=== PATIENT | female | born 1960 | race Caucasian/White ===

== ENCOUNTER 2019-08-31 10:57 | Inpatient (IN) | payer BC, OTHER ==
[~2019-08-31] VITALS: Ht 160 cm; Wt 63.1 kg
[~2019-08-31 10:57] MED LIST: CLONAZEPAM2 M1 PO; FLAGYL500 MG PO; LEVOTHYROXINE200 MC1 PO; LIPITOR20 MG; LISINOPRIL10 MG PO; OXYCODONE HCL20 M1 PO; PANTOPRAZOLE SO40 MG PO; POTASSIUM CHLO20 ME1 PO; RESTORIL30 MG PO; ULTRAM50 MG PO; XANAX0.5 MG PO; Z ALTACE PO; Z.0.PLAVIX75 MG PO; Z.0.TOPROL XL50 MG PO; ZOFRAN ODT4 MG PO
--- OUTSIDE RECORDS SUMMARY | 2019-08-31 11:00 | XMS REPORT | Clinical Summary ---
Author Author [facility] Address Unknown Phone Unavailable Care Team Providers Care Alumni Relations Coordinator Name Role Phone PCP Unavailable Allergies Comments Active Allergy Reactions Severity Noted Date Prochlorperazine Rash Low 05/30/2016 Dye Itching, High 05/31/2016 Swelling, Rash Iodine And Iodide 06/03/2016 Containing Products Penicillins Swelling High 05/30/2016 jittery Metoclopramide Hcl 05/30/2016 Ketorolac Hives 05/30/2016 Ondansetron Hcl (Pf) Rash Low 7 Medications End Date Status Medication Sig Dispensed Refills Start Date Active clopidogrel (PLAVIX) 75 Take 75 mg by 0 mg tablet mouth daily. Active cloNIDine HCl (CATAPRES) Take 0.1 mg 0 0.1 MG tablet by mouth as needed. Active amLODIPine (NORVASC) 10 Take 10 mg by 0 MG tablet mouth daily. Active pantoprazole (PROTONIX) Take 40 mg by 0 40 MG tablet mouth daily. Active lisinopril Take 10 mg by 0 (PRINIVIL,ZESTRIL) 10 MG mouth daily. tablet Active atorvastatin (LIPITOR) 80 Take 80 mg by 0 MG tablet mouth daily. Active diazePAM (VALIUM) 5 MG Take 5 mg by 0 tablet mouth every 6 (six) hours as needed for Anxiety. Active HYDROcodone-acetaminophen Take 1 tablet 0 (NORCO 10-325) 10-325 mg by mouth per tablet every 6 (six) hours as needed for Pain. Active temazepam (RESTORIL) 30 Take 30 mg by 0 mg capsule mouth every night as needed for Sleep. Active levothyroxine (SYNTHROID, Take 175 mcg 0 LEVOTHROID) 175 MCG by mouth tablet Every morning on an empty stomach. Active traMADol (ULTRAM) 50 mg Take 2 60 tablet 0 tablet tablets (100 7 mg total) by mouth 3 (three) times daily. Max Daily Amount: 300 mg Active Problems Problem Noted Date Acute chest pain 05/30/2016 Social History Date Tobacco Use Types Packs/Day Years Used Former Smoker Alcohol Use Drinks/Week oz/Week Comments Yes 1-2 Glasses 0.6 - 1.2 two times week of wine Sex Assigned at Date Recorded Not on file Industry Job Start Date Occupation Not on file Not on file Not on file Travel End Travel History Travel Start No recent travel history available. Last Filed Vital Signs Not on file Plan of Treatment Not on file Results Not on fileafter 08/30/2018 Insurance Payer Benefit Subscriber ID Type Phone Address Plan / Group [employer] FED xxxxxxxxx [id number] [place] [address] Advance Directives For more information, please contact: [facility] [address] [place] [address] Date Inactivated Comments Code Status Date Activated 06/05/2016 12:30 AM Full Code 06/04/2016 11:27 AM This code status was determined by: Patient 06/04/2016 11:27 AM Full Code 05/30/2016 9:51 PM This code status was determined by: Patient
--- OUTSIDE RECORDS SUMMARY | 2019-08-31 11:01 | XMS REPORT | Summary of Care ---
Author Author [facility] Organization [facility] Address Unknown Phone Unavailable Encounter ANDREINA Yoder(YOUNG) [id number] Date(s): 11/23/14 - 12/01/14 [facility] [id number] [place] [address]- [phone] Discharge Disposition: Home Attending Physician: Chevy Callaway DO Admitting Physician: Chevy Callaway DO Vital Signs 1 2 3 Most recent to oldest [Reference Range]: 160.02 cm (11/23/14 12:05 PM) Height 1 2 3 Most recent to oldest [Reference Range]: 97.9 DegF (12/01/14 2:57 PM) 98.1 DegF (12/01/14 11:55 AM) 97.5 DegF (12/01/14 7:56 AM) Temperature Oral [96.4-99.1 DegF] 1 2 3 Most recent to oldest [Reference Range]: 114/73 mmHg (12/01/14 2:57 PM) 121/84 mmHg (12/01/14 1:20 PM) 155/101 mmHg *HI* (12/01/14 11:55 AM) Blood Pressure [90-140/60-90 mmHg] 1 2 3 Most recent to oldest [Reference Range]: 15 BRMIN (12/01/14 2:57 PM) 16 BRMIN (12/01/14 11:55 AM) 18 BRMIN (12/01/14 7:56 AM) Respiratory Rate [14-20 BRMIN] 1 2 3 Most recent to oldest [Reference Range]: 70 bpm (12/01/14 2:57 PM) 81 bpm (12/01/14 11:55 AM) 81 bpm (12/01/14 7:56 AM) Peripheral Pulse Rate [60-100 bpm] 1 2 3 Most recent to oldest [Reference Range]: 81.818 kg (11/26/14 4:37 PM) 81.818 kg (11/23/14 12:05 PM) Weight 1 2 3 Most recent to oldest [Reference Range]: 31.95 m2 (11/23/14 12:05 PM) Body Mass Index Problem List Condition Effective Dates Status Health Status Informan t Congestive heart Active failure (CHF)(Confirmed) Hypertension(Confirm Active ed) Myocardial Resolved infarction(Confirmed )1 13 Allergies, Adverse Reactions, Alerts Substance Reaction Severity Status Compazine Active penicillins Active Reglan Active Toradol Active Zofran Active Medications aspirin 325 mg tablet 325 mg, PO, Daily, # 30 tab, 0 Refill(s) Start Date: 12/01/14 Status: Ordered aspirin 325 mg tablet 325 mg, 1 tab, Route: PO, Drug form: TAB, Daily, Dosing Weight 81.818, kg, Start date: 11/25/14 9:00:00, Duration: 30 day, Stop date: 12/24/14 9:00:00 Notes: Take with food. Start Date: 11/25/14 Stop Date: 12/01/14 Status: Discontinued Ativan 1 mg, Route: PO, Drug form: TAB, ONCE, Dosing Weight 81.818, kg, Priority: STAT, Start date: 11/23/14 14:33:00, Stop date: 11/23/14 14:33:00 Start Date: 11/23/14 Stop Date: 11/23/14 Status: Completed atropine 0.5 mg, 5 mL, Route: IVP, Drug form: INJ, PRN, PRN Bradycardia, Start date: 11/04 04/19 18:36:00, Duration: 30 day, Stop date: 12/23/14 18:35:00 Start Date: 11/23/14 Stop Date: 12/01/14 Status: Discontinued Benadryl 25 mg, Route: IVP, ONCE, Dosing Weight 81.818, kg, PRN Allergic reaction, Start date: 11/23/14 17:56:00 Start Date: 11/23/14 Stop Date: 11/23/14 Status: Completed cloNIDine 0.1 mg oral tablet 0.1 mg = 1 tab, PO, Q1H, PRN el, SBP > 160, # 90 tab, 3 Refill(s) Special Instructions: SBP > 160 Start Date: 11/23/14 Stop Date: 12/01/14 Status: Discontinued cloNIDine 0.1 mg oral tablet 0.1 mg = 1 tab, PO, TID, PRN Hypertension, # 90 tab, 0 Refill(s) Start Date: 12/01/14 Stop Date: 12/31/14 Status: Ordered cloNIDine 0.1 mg oral tablet 0.1 mg, 1 tab, Route: PO, Drug form: TAB, BID, Dosing Weight 81.818, kg, PRN Hyp ertension, Start date: 11/23/14 15:33:00, Duration: 30 day, Stop date: 12/23/14 15:32:00 Notes: (Same As: Radha) Start Date: 11/23/14 Stop Date: 12/01/14 Status: Discontinued Dilaudid 1 mg, 1 mL, Route: IVP, Drug form: INJ, ONCE, Dosing Weight 81.818, kg, Priority : STAT, Start date: 11/25/14 17:51:00, Stop date: 11/25/14 17:51:00 Start Date: 11/25/14 Stop Date: 11/25/14 Status: Completed Dilaudid 1 mg, Route: IVP, ONCE, Dosing Weight 81.818, kg, Priority: STAT, Start date: 17:57:00, Stop date: 11/23/14 17:57:00 Start Date: 11/23/14 Stop Date: 11/23/14 Status: Completed Dilaudid 1 mg, 1 mL, Route: IV, Drug form: INJ, Q4H, Dosing Weight 81.818, kg, PRN Pain S core 7-10, Start date: 11/28/14 11:53:00, Duration: 30 day, Stop date: 12/28/14 11:52:00 Start Date: 11/28/14 Stop Date: 12/01/14 Status: Discontinued Dilaudid 0.5 mg, 0.5 mL, Route: IV, Drug form: INJ, Q3H, Dosing Weight 81.818, kg, PRN Pa in Score 7-10, Start date: 11/24/14 17:16:00, Duration: 30 day, Stop date: 12/24 17:15:00 Start Date: 11/24/14 Stop Date: 11/28/14 Status: Discontinued Dilaudid 0.5 mg, 0.5 mL, Route: IV, Drug form: INJ, Q4H, Dosing Weight 81.818, kg, PRN Pa in Score 7-10, Start date: 11/23/14 18:49:00, Duration: 30 day, Stop date: 12/23 18:48:00 Start Date: 11/23/14 Stop Date: 11/24/14 Status: Discontinued droperidol 0.625 mg, Route: IVP, ONCE, Dosing Weight 81.818, kg, PRN Nausea, Start date: 17:42:00, Stop date: 12/23/14 17:41:00 Start Date: 11/23/14 Stop Date: 11/23/14 Status: Deleted erythromycin 250 mg oral tablet 250 mg = 1 tab, PO, Q6H, X 10 day, # 40 tab, 0 Refill(s) Start Date: 12/01/14 Stop Date: 12/11/14 Status: Ordered erythromycin ethylsuccinate 200 mg/5 mL oral suspension 250 mg, 3.13 mL, Route: PO, Drug Form: SUSP, Dosing Weight 81.818, kg, ABXQ6H, S tart date: 11/29/14 17:00:00, Duration: 30 day, Stop date: 12/29/14 11:00:00 Notes: (Same as: E.E.S.-400) Start Date: 11/29/14 Stop Date: 12/01/14 Status: Discontinued famotidine 20 mg oral tablet 20 mg, 1 tab, Route: PO, Drug form: TAB, Q12H, Dosing Weight 81.818, kg, Start d ate: 11/24/14 21:00:00, Duration: 30 day, Stop date: 12/24/14 9:00:00 Notes: (Same as: Pepcid) Start Date: 11/24/14 Stop Date: 12/01/14 Status: Discontinued hydrOXYzine 25 mg, 1 mL, Route: IM, Drug form: INJ, Q6H, Dosing Weight 81.818, kg, PRN Nause a & Vomiting, Start date: 11/29/14 16:45:00, Duration: 30 day, Stop date: 12/29/14 16:44:00 Notes: (Same as: Vistaril) Avoid alcohol. Start Date: 11/29/14 Stop Date: 11/29/14 Status: Discontinued hydrOXYzine hydrochloride 10 mg/5 mL oral syrup 25 mg, 12.5 mL, Route: PO, Drug form: SYRP, Q6H, PRN Nausea & Vomiting, Start date: 11/29/14 18:24:00, Duration: 30 day, Stop date: 12/29/14 18:23:00 Notes: (Same as: Atarax) Start Date: 11/29/14 Stop Date: 12/01/14 Status: Discontinued hyoscyamine 0.125 mg sublingual tablet 0.125 mg = 1 tab, PO, Before Meals & Bedtime, # 120 tab, 0 Refill(s) Start Date: 12/01/14 Stop Date: 12/31/14 Status: Ordered labetalol 20 mg, 4 mL, Route: IVP, Drug form: INJ, Q10Min, Dosing Weight 81.818, kg, PRN O ther -See Comment, Start date: 11/23/14 15:33:00, Duration: 30 day, Stop date: 0 12/23/14 15:32:00 Notes: (Same as: Normodyne, Trandate)Push over 2 minutes Give bolus over 2-3 mi nutes. Start Date: 11/23/14 Stop Date: 12/01/14 Status: Discontinued levothyroxine 200 microgram, 1 tab, Route: PO, Drug form: TAB, Q630AM, Dosing Weight 81.818, k g, Start date: 11/25/14 6:30:00, Duration: 30 day, Stop date: 12/24/14 6:30:00 Notes: Take 1 hour before or 2 hours after meal; Enteral feeds may interefere wi th the absorption of this medication. (Same as: Levothroid) Start Date: 11/25/14 Stop Date: 12/01/14 Status: Discontinued levothyroxine 200 mcg (0.2 mg) oral tablet 200 microgram = 1 tab, PO, Daily, # 30 tab, 0 Refill(s) Start Date: 12/01/14 Stop Date: 12/31/14 Status: Ordered Levsin 0.125 mg, 1 tab, Route: PO, Drug form: TAB, Before Meals & Bedtime, Dosing Weight 81.818, kg, Start date: 11/27/14 21:00:00, Duration: 30 day, Stop date: 12/27/14 16:30:00 Notes: (Same as: Levsin) Take 30 min before meal Start Date: 11/27/14 Stop Date: 12/01/14 Status: Discontinued Levsin 0.125 mg, 1 tab, Route: PO, Drug form: TAB, QID, Dosing Weight 81.818, kg, PRN S pasm, Start date: 11/26/14 9:34:00, Stop date: 12/26/14 9:33:00 Notes: (Same as: Levsin) Take 30 min before meal Start Date: 11/26/14 Stop Date: 11/27/14 Status: Discontinued Lipitor 80 mg, 2 tab, Route: PO, Drug form: TAB, Bedtime, Dosing Weight 81.818, kg, Star t date: 11/24/14 21:00:00, Duration: 30 day, Stop date: 12/23/14 21:00:00 Notes: (Same as: Lipitor) Start Date: 11/24/14 Stop Date: 11/25/14 Status: Discontinued lisinopril 20 mg, 1 tab, Route: PO, Drug form: TAB, Q12H, Dosing Weight 81.818, kg, Start d ate: 11/24/14 21:00:00, Duration: 30 day, Stop date: 12/24/14 9:00:00 Notes: (Same as: Prinivil, Zestril) Start Date: 11/24/14 Stop Date: 12/01/14 Status: Discontinued lisinopril 20 mg oral tablet 20 mg = 1 tab, PO, BID, # 60 tab, 0 Refill(s) Start Date: 12/01/14 Status: Ordered magnesium sulfate 2 gm, 50 mL, Route: IVPB, Drug form: INJ, ONCE, Dosing Weight 81.818, kg, Total dose = 2 gm, Start date: 11/23/14 18:46:00, Duration: 1 doses or times, Stop tung e: 11/23/14 18:46:00 Start Date: 11/23/14 Stop Date: 11/23/14 Status: Completed metoprolol tartrate 50 mg, 1 tab, Route: PO, Drug form: TAB, Q12H, Dosing Weight 81.818, kg, Start d ate: 11/24/14 21:00:00, Duration: 30 day, Stop date: 12/24/14 9:00:00 Notes: (Same as: Lopressor) Start Date: 11/24/14 Stop Date: 12/01/14 Status: Discontinued metoprolol tartrate 50 mg oral tablet 50 mg = 1 tab, PO, Q12H, # 120 tab, 0 Refill(s) Start Date: 12/01/14 Status: Ordered morphine Sulfate 4 mg, Route: IVP, Drug form: INJ, ONCE, Dosing Weight 81.818, kg, Priority: STAT , Start date: 11/23/14 13:13:00, Stop date: 11/23/14 13:13:00 Start Date: 11/23/14 Stop Date: 11/23/14 Status: Completed morphine Sulfate 2 mg, 1 mL, Route: IVP, Drug form: INJ, Q15Min, Dosing Weight 81.818, kg, PRN Ch est Pain, Start date: 11/23/14 17:17:00, Duration: 2 doses or times, Stop date: Limited # of times Notes: (Same as:MORPhine Sulfate) Start Date: 11/23/14 Stop Date: 11/24/14 Status: Discontinued morphine Sulfate 4 mg, 2 mL, Route: IVP, Drug form: INJ, ONCE, Dosing Weight 81.818, kg, Start da te: 11/23/14 15:34:00, Stop date: 11/23/14 15:34:00 Notes: (Same as:MORPhine Sulfate) Start Date: 11/23/14 Stop Date: 11/23/14 Status: Completed nitroglycerin 0.4 mg, 1 tab, Route: SL, Drug form: TAB, Q5Min, Dosing Weight 81.818, kg, PRN C hest Pain, Priority: STAT, Start date: 11/23/14 13:20:00, Duration: 3 doses or t imes, Stop date: Limited # of times Notes: (Same as:Nitroquick, Nitrostat)"Do Not Crush" Sublingual tablet Start Date: 11/23/14 Stop Date: 11/23/14 Status: Discontinued nitroglycerin 0.4 mg sublingual tablet 0.4 mg, 1 tab, Route: SL, Drug form: TAB, Q5Min, PRN Chest Pain, Start date: 18:37:00, Duration: 30 day, Stop date: 12/23/14 18:36:00 Notes: (Same as:Nitroquick, Nitrostat)"Do Not Crush" Sublingual tablet Start Date: 11/23/14 Stop Date: 12/01/14 Status: Discontinued nitroglycerin SL Tab 0.4 mg, 1 tab, Route: SL, Drug form: TAB, Q5Min, Dosing Weight 81.818, kg, PRN C hest Pain, Start date: 11/23/14 17:17:00, Duration: 3 doses or times, Stop date: Limited # of times Notes: (Same as:Nitroquick, Nitrostat)"Do Not Crush" Sublingual tablet Start Date: 11/23/14 Stop Date: 11/23/14 Status: Discontinued [place] 10/325 oral tablet 1 tab, Route: PO, Drug Form: TAB, Dosing Weight 81.818, kg, Q4H, PRN Pain Score 6-10, Start date: 11/24/14 17:13:00, Duration: 30 day, Stop date: 12/24/14 17:12 :00 Notes: Do not exceed 4gm/day of acetaminophen. (Same as: [place] 325/10) Start Date: 11/24/14 Stop Date: 12/01/14 Status: Discontinued normal saline 0.9% IV 1,000 mL 1,000 mL, Rate: 80 ml/hr, Infuse over: 12.5 hr, Route: IV, Dosing Weight 81.818 kg, Total Volume: 1,000, Start date: 11/23/14 18:39:00, Stop date: 12/23/14 18:3 8:00 Start Date: 11/23/14 Stop Date: 12/01/14 Status: Discontinued pantoprazole 40 mg oral enteric coated tablet 40 mg = 1 tab, PO, Before Dinner, # 30 tab, 0 Refill(s) Start Date: 12/01/14 Stop Date: 12/31/14 Status: Ordered Pepcid 20 mg, 2 mL, Route: IVP, Drug form: INJ, Q12H, Dosing Weight 81.818, kg, Priorit y: NOW, Start date: 11/23/14 18:21:00, Duration: 30 day, Stop date: 12/23/14 18: 00:00 Notes: (Same as: Pepcid)Can be dilute in 5-10cc NS IVP: Slow IV push over at le ast 2 minutes. Start Date: 11/23/14 Stop Date: 11/24/14 Status: Discontinued Phenergan 25 mg, 1 tab, Route: PO, Drug form: TAB, Q4H, Dosing Weight 81.818, kg, PRN Himanshu rgic reaction, Start date: 11/23/14 18:49:00, Duration: 30 day, Stop date: 12/23 18:48:00 Notes: (Same as: Phenergan) Start Date: 11/23/14 Stop Date: 12/01/14 Status: Discontinued Phenergan + Sodium Chloride 0.9% IV 50 mL 25 mg, 1 mL, Route: IVPB, Q6H, Dosing Weight 81.818, kg, PRN as needed for nause a/vomiting, Start date: 11/24/14 1:07:00, Duration: 30 day, Stop date: 12/24/14 1:06:00 Notes: Do not give IV push. (Same as: Phenergan) Start Date: 11/24/14 Stop Date: 12/01/14 Status: Discontinued Plavix 75 mg, 1 tab, Route: PO, Drug form: TAB, Daily, Dosing Weight 81.818, kg, Start date: 11/25/14 9:00:00, Duration: 30 day, Stop date: 12/24/14 9:00:00 Notes: (Same As: Plavix) Start Date: 11/25/14 Stop Date: 12/01/14 Status: Discontinued Plavix 75 mg oral tablet 75 mg = 1 tab, PO, Daily, # 30 tab, 0 Refill(s) Start Date: 12/01/14 Status: Ordered promethazine 25 mg oral tablet 25 mg = 1 tab, PO, Q4H, PRN Allergic reaction, X 7 day, # 42 tab, 0 Refill(s) Start Date: 12/01/14 Stop Date: 12/08/14 Status: Ordered Protonix 40 mg, 1 tab, Route: PO, Drug form: ECTAB, Before Dinner, Dosing Weight 81.818, kg, Start date: 11/26/14 16:30:00, Duration: 30 day, Stop date: 12/25/14 16:30:0 0 Notes: Tablet should not be chewed or crushed.(Same as: Protonix) Start Date: 11/26/14 Stop Date: 12/01/14 Status: Discontinued Reglan 10 mg, Route: IVP, ONCE, Dosing Weight 81.818, kg, Start date: 11/23/14 17:55:00 , Stop date: 11/23/14 17:55:00 Start Date: 11/23/14 Stop Date: 11/23/14 Status: Completed Restoril 30 mg, 2 cap, Route: PO, Drug form: CAP, Bedtime, Dosing Weight 81.818, kg, Star t date: 11/24/14 21:00:00, Duration: 30 day, Stop date: 12/23/14 21:00:00 Notes: (Same As: Restoril) Start Date: 11/24/14 Stop Date: 12/01/14 Status: Discontinued Restoril 30 mg oral capsule 30 mg = 1 cap, PO, Bedtime, X 7 day, # 7 cap, 0 Refill(s) Start Date: 12/01/14 Stop Date: 12/08/14 Status: Ordered Saline Flush 0.9% 10 ml, Route: IVP, Drug Form: INJ, Dosing Weight 81.818, kg, PRN, PRN Line Flush , Start date: 11/23/14 17:17:00, Duration: 30 day, Stop date: 12/23/14 17:16:00 Notes: (Same as: BD Posiflush) Start Date: 11/23/14 Stop Date: 12/01/14 Status: Discontinued Saline Flush 0.9% 10 ml, Route: IVP, Drug Form: INJ, Dosing Weight 81.818, kg, Q12H, Start date: 0 11/23/14 21:00:00, Duration: 30 day, Stop date: 12/23/14 9:00:00 Notes: (Same as: BD Posiflush) Start Date: 11/23/14 Stop Date: 12/01/14 Status: Discontinued Saline Flush 0.9% 10 mL, Route: IVP, Drug Form: INJ, Dosing Weight 81.818, kg, PRN, PRN Line Flush , Start date: 11/23/14 12:33:00, Duration: 30 day, Stop date: 12/23/14 12:32:00 Notes: (Same as: BD Posiflush) Start Date: 11/23/14 Stop Date: 11/23/14 Status: Discontinued Sodium Chloride 0.9% IV 500 mL 500 mL, Rate: 25 ml/hr, Infuse over: 20 hr, Route: IV, Dosing Weight 81.818 kg, Total Volume: 500, Start date: 11/26/14 8:15:00, Duration: 1 day, Stop date: 8:14:00 Start Date: 11/26/14 Stop Date: 11/27/14 Status: Completed tramadol 50 mg oral tablet 50 mg = 1 tab, PO, Q6H, PRN Pain, X 10 day, # 40 tab, 0 Refill(s) Start Date: 12/01/14 Stop Date: 12/11/14 Status: Ordered Tylenol 650 mg, 2 tab, Route: PO, Drug form: TAB, Q6H, Dosing Weight 81.818, kg, PRN Bertram n 1-3/Temp > 100.4 F, Start date: 11/28/14 11:53:00, Duration: 30 day, Stop date: 12/28/14 11:52:00 Notes: Do not exceed 4 gm/day. (Same as: Tylenol) Start Date: 11/28/14 Stop Date: 12/01/14 Status: Discontinued Valium 10 mg, 2 tab, Route: PO, Drug form: TAB, TID, Dosing Weight 81.818, kg, PRN as n eeded for anxiety, Start date: 11/24/14 17:12:00, Duration: 30 day, Stop date: 0 12/24/14 17:11:00 Notes: (Same as: Valium) Start Date: 11/24/14 Stop Date: 12/01/14 Status: Discontinued Valium 10 mg oral tablet 10 mg = 1 tab, PO, TID, PRN Anxiety, X 7 day, # 21 tab, 0 Refill(s) Start Date: 12/01/14 Stop Date: 12/08/14 Status: Ordered Results ELECTROLYTES 1 2 3 Most recent to oldest [Reference Range]: 140 mEq/L (11/30/14 5:15 AM) 142 mEq/L (11/28/14 4:33 AM) 141 mEq/L (11/25/14 3:31 AM) Sodium Lvl [135-145 mEq/L] 4.1 mEq/L (11/30/14 5:15 AM) 3.7 mEq/L (11/28/14 4:33 AM) 3.5 mEq/L (11/25/14 3:31 AM) Potassium Lvl [3.5-5.1 mEq/L] 107 mEq/L (11/30/14 5:15 AM) 105 mEq/L (11/28/14 4:33 AM) 110 mEq/L *HI* (11/25/14 3:31 AM) Chloride Lvl [95-109 mEq/L] 24 mEq/L (11/30/14 5:15 AM) 26 mEq/L (11/28/14 4:33 AM) 21 mEq/L *LOW* (11/25/14 3:31 AM) CO2 [24-32 mEq/L] 13.1 mEq/L (11/30/14 5:15 AM) 14.7 mEq/L (11/28/14 4:33 AM) 13.5 mEq/L (11/25/14 3:31 AM) AGAP [10.0-20.0 mEq/L] CHEM PANEL 1 2 3 Most recent to oldest [Reference Range]: 0.9 mg/dL (11/30/14:15 AM) 0.9 mg/dL (11/28/14 4:33 AM) 0.8 mg/dL (11/25/14 3:31 AM) Creatinine Lvl [0.5-1.4 mg/dL] 73 mL/min/1.73m2 1 *NA* (11/30/14 5:15 AM) 73 mL/min/1.73m2 2 *NA* (11/28/14 4:33 AM) 84 mL/min/1.73m2 3 *NA* (11/25/14 3:31 AM) eGFR 18 mg/dL (11/30/14 5:15 AM) 13 mg/dL (11/28/14 4:33 AM) 9 mg/dL (11/25/14 3:31 AM) BUN [7-22 mg/dL] 11 (11/25/14 3:31 AM) 12 (11/24/14 7:47 PM) 19 (11/23/14 2:19 PM) B/C Ratio [6-25] 106 mg/dL *HI* (11/30/14 5:15 AM) 107 mg/dL *HI* (11/28/14 4:33 AM) 89 mg/dL (11/25/14 3:31 AM) Glucose Lvl [70-99 mg/dL] 5.9 g/dL *LOW* (11/28/14 4:33 AM) 6.6 g/dL (11/25/14 3:31 AM) 6.6 g/dL (11/24/14 7:47 PM) Total Protein [6.4-8.4 g/dL] 3.0 g/dL *LOW* (11/28/14 4:33 AM) 3.1 g/dL *LOW* (11/25/14 3:31 AM) 3.2 g/dL *LOW* (11/24/14 7:47 PM) Albumin Lvl [3.5-5.0 g/dL] 2.9 g/dL (11/28/14 4:33 AM) 3.5 g/dL (11/25/14 3:31 AM) 3.4 g/dL (11/24/14 7:47 PM) Globulin [2.0-4.0 g/dL] 1.0 (11/28/14 4:33 AM) 0.9 (11/25/14 3:31 AM) 0.9 (11/24/14 7:47 PM) A/G Ratio [0.7-1.6] 8.6 mg/dL (11/30/14 5:15 AM) 8.8 mg/dL (11/28/14 4:33 AM) 8.4 mg/dL *LOW* (11/25/14 3:31 AM) Calcium Lvl [8.5-10.5 mg/dL] 1.9 mg/dL (11/24/14 7:47 PM) 1.7 mg/dL *LOW* (11/23/14 2:19 PM) Magnesium Lvl [1.8-2.4 mg/dL] 49 unit/L (11/28/14 4:33 AM) 95 unit/L *HI* (11/25/14 3:31 AM) 111 unit/L *HI* (11/24/14 7:47 PM) ALT [0-65 unit/L] 26 unit/L (11/28/14 4:33 AM) 63 unit/L *HI* (11/25/14 3:31 AM) 83 unit/L *HI* (11/24/14 7:47 PM) AST [0-37 unit/L] 146 unit/L *HI* (11/28/14 4:33 AM) 182 unit/L *HI* (11/25/14 3:31 AM) 192 unit/L *HI* (11/24/14 7:47 PM) Alk Phos [39-136 unit/L] 0.4 mg/dL (11/28/14 4:33 AM) 0.5 mg/dL (11/25/14 3:31 AM) 0.6 mg/dL (11/24/14 7:47 PM) Bili Total [0.2-1.3 mg/dL] 0.1 mg/dL (11/28/14 4:33 AM) Bili Direct [0.0-0.3 mg/dL] 0.3 mg/dL (11/28/14 4:33 AM) Bili Indirect [0.0-1.0 mg/dL] 50 unit/L (11/24/14 7:47 PM) 86 unit/L (11/23/14 8:15 PM) Amylase Lvl [25-115 unit/L] 107 unit/L (11/25/14 3:31 AM) 111 unit/L (11/24/14 7:47 PM) 479 unit/L *HI* (11/23/14 8:15 PM) Lipase Lvl [73-393 unit/L] 1.0 mMol/L (11/23/14 8:15 PM) Lactic Acid Lvl [0.5-2.2 mMol/L] 1Result Comment: The eGFR is calculated using the CKD-EPI formula. In most young, healthy individuals the eGFR will be >90 mL/min/1.73m2. The eGFR declines with age. An eGFR of 60-89 may be normal in some populations, particularly the elderly, for whom the CKD-EPI formula has not been extensively validated. Use of the eGFR is not recommended in the following populations: Individuals with unstable creatinine concentrations, including patients and those with serious co-morbid conditions. Patients with extremes in muscle mass or diet. The data above are obtained from the National Kid[employer] Disease Education Program ( [employer]) which additionally recommends that when the eGFR is used in patients with extremes of body mass index for purposes of drug dosing, the eGFR should be mul tiplied by the estimated BMI. 2Result Comment: The eGFR is calculated using the CKD-EPI formula. In most young, healthy individuals the eGFR will be >90 mL/min/1.73m2. The eGFR declines with age. An eGFR of 60-89 may be normal in some populations, particularly the elderly, for whom the CKD-EPI formula has not been extensively validated. Use of the eGFR is not recommended in the following populations: Individuals with unstable creatinine concentrations, including patients and those with serious co-morbid conditions. Patients with extremes in muscle mass or diet. The data above are obtained from the National Kid[employer] Disease Education Program ( [employer]) which additionally recommends that when the eGFR is used in patients with extremes of body mass index for purposes of drug dosing, the eGFR should be mul tiplied by the estimated BMI. 3Result Comment: The eGFR is calculated using the CKD-EPI formula. In most young, healthy individuals the eGFR will be >90 mL/min/1.73m2. The eGFR declines with age. An eGFR of 60-89 may be normal in some populations, particularly the elderly, for whom the CKD-EPI formula has not been extensively validated. Use of the eGFR is not recommended in the following populations: Individuals with unstable creatinine concentrations, including patients and those with serious co-morbid conditions. Patients with extremes in muscle mass or diet. The data above are obtained from the National Kid[employer] Disease Education Program ( [employer]) which additionally recommends that when the eGFR is used in patients with extremes of body mass index for purposes of drug dosing, the eGFR should be mul tiplied by the estimated BMI. CARDIAC ENZYMES 1 2 3 Most recent to oldest [Reference Range]: 81 unit/L (11/23/14 8:15 PM) 77 unit/L (11/23/14 2:19 PM) Total CK [12-191 unit/L] 0.8 ng/mL (11/23/14 8:15 PM) 0.9 ng/mL (11/23/14 2:19 PM) CK MB [0.5-3.6 ng/mL] 1.0 (11/23/14 8:15 PM) 1.2 (11/23/14 2:19 PM) CK MB Index [0.0-2.5] <0.02 ng/mL (11/23/14 8:15 PM) <0.02 ng/mL (11/23/14 2:19 PM) Troponin-I [0.00-0.40 ng/mL] 9 pg/mL (11/23/14 2:19 PM) BNP [<=100 pg/mL] URINE AND STOOL 1 2 3 Most recent to oldest [Reference Range]: Clear (11/23/14 11:47 PM) UA Turbidity [Clear] Yellow *NA* (11/23/14 11:47 PM) UA Color [Yellow] 5.0 (11/23/14 11:47 PM) UA pH [5.0-8.0] 1.023 (11/23/14 11:47 PM) UA Spec Grav [<=1.030] Negative mg/dL *NA* (11/23/14 11:47 PM) UA Glucose [Negative mg/dL] Negative (11/23/14 11:47 PM) UA Blood [Negative] Negative mg/dL *NA* (11/23/14 11:47 PM) UA Ketones [Negative mg/dL] Negative mg/dL (11/23/14 11:47 PM) UA Protein [Negative mg/dL] <=1.0 mg/dL *NA* (11/23/14 11:47 PM) UA Urobilinogen [0.1-1.0 mg/dL] Negative *NA* (11/23/14 11:47 PM) UA Bili [Negative] Trace *ABN* (11/23/14 11:47 PM) UA Leuk Est [Negative] Negative (11/23/14 11:47 PM) UA Nitrite [Negative] 12 /HPF *HI* (11/23/14 11:47 PM) UA WBC [0-5 /HPF] 1 /HPF (11/23/14 11:47 PM) UA RBC [0-2 /HPF] Few /LPF *NA* (11/23/14 11:47 PM) UA Sq Epi [Few /LPF] Few /LPF *NA* (11/23/14 11:47 PM) UA Mucus [None Seen /LPF] HEMATOLOGY 1 2 3 Most recent to oldest [Reference Range]: 6.1 K/CMM (11/30/14 5:15 AM) 5.9 K/CMM (11/28/14 4:33 AM) 5.9 K/CMM (11/25/14 3:31 AM) WBC [3.7-10.4 K/CMM] 4.05 M/CMM *LOW* (11/30/14:15 AM) 4.47 M/CMM (11/28/14 4:33 AM) 4.42 M/CMM (11/25/14 3:31 AM) RBC [4.20-5.40 M/CMM] 11.5 g/dL *LOW* (11/30/14 5:15 AM) 12.5 g/dL (11/28/14 4:33 AM) 12.3 g/dL (11/25/14 3:31 AM) Hgb [12.0-16.0 g/dL] 33.9 % *LOW* (11/30/14:15 AM) 36.5 % (11/28/14 4:33 AM) 36.3 % (11/25/14 3:31 AM) Hct [36.0-48.0 %] 83.7 fL (11/30/14 5:15 AM) 81.7 fL (11/28/14 4:33 AM) 82.2 fL (11/25/14 3:31 AM) MCV [80.0-98.0 fL] 28.3 pg (11/30/14 5:15 AM) 28.0 pg (11/28/14 4:33 AM) 27.8 pg (11/25/14 3:31 AM) MCH [27.0-31.0 pg] 33.8 g/dL (11/30/14:15 AM) 34.3 g/dL (11/28/14:33 AM) 33.8 g/dL (11/25/14:31 AM) MCHC [32.0-36.0 g/dL] 16.1 % *HI* (11/30/14:15 AM) 16.0 % *HI* (11/28/14:33 AM) 16.0 % *HI* (11/25/14:31 AM) RDW [11.5-14.5 %] 245 K/CMM (11/30/14:15 AM) 285 K/CMM (11/28/14:33 AM) 283 K/CMM (11/25/14:31 AM) Platelet [133-450 K/CMM] 8.0 fL (11/30/14:15 AM) 7.7 fL (11/28/14:33 AM) 7.9 fL (11/25/14:31 AM) MPV [7.4-10.4 fL] 32.0 % *LOW* (11/30/14:15 AM) 45.5 % (11/28/14:33 AM) 32.8 % *LOW* (11/25/14:31 AM) Segs [45.0-75.0 %] 46.7 % *HI* (11/30/14:15 AM) 36.4 % (11/28/14:33 AM) 53.4 % *HI* (11/25/14:31 AM) Lymphocytes [20.0-40.0 %] 10.2 % (11/30/14:15 AM) 10.2 % (11/28/14 4:33 AM) 7.1 % (11/25/14 3:31 AM) Monocytes [2.0-12.0 %] 6.1 % *HI* (11/30/14 5:15 AM) 5.4 % *HI* (11/28/14 4:33 AM) 4.6 % *HI* (11/25/14 3:31 AM) Eosinophils [0.0-4.0 %] 5.0 % *HI* (11/30/14 5:15 AM) 2.5 % *HI* (11/28/14 4:33 AM) 2.1 % *HI* (11/25/14 3:31 AM) Basophils [0.0-1.0 %] 2.0 K/CMM (11/30/14 5:15 AM) 2.7 K/CMM (11/28/14 4:33 AM) 1.9 K/CMM (11/25/14 3:31 AM) Segs-Bands # [1.5-8.1 K/CMM] 2.9 K/CMM (11/30/14 5:15 AM) 2.2 K/CMM (11/28/14 4:33 AM) 3.1 K/CMM (11/25/14 3:31 AM) Lymphocytes # [1.0-5.5 K/CMM] 0.6 K/CMM (11/30/14 5:15 AM) 0.6 K/CMM (11/28/14 4:33 AM) 0.4 K/CMM (11/25/14 3:31 AM) Monocytes # [0.0-0.8 K/CMM] 0.4 K/CMM (11/30/14 5:15 AM) 0.3 K/CMM (11/28/14 4:33 AM) 0.3 K/CMM (11/25/14 3:31 AM) Eosinophils # [0.0-0.5 K/CMM] 0.3 K/CMM *HI* (11/30/14 5:15 AM) 0.1 K/CMM (11/28/14 4:33 AM) 0.1 K/CMM (11/25/14 3:31 AM) Basophils # [0.0-0.2 K/CMM] 12.2 seconds (11/23/14 3:06 PM) PT [12.0-14.7 seconds] 0.91 (11/23/14 3:06 PM) INR [0.85-1.17] 29.7 seconds (11/23/14 3:06 PM) PTT [22.9-35.8 seconds] Immunizations No data available for this section Procedures Procedure Date Related Diagnosis Body Site Hysterectomy Procedure on back Thyroidectomy Social History Social History Type Response Substance Abuse Use: Current. Type: Mariju natalia. Recreational Drug Route: Oral. Frequency: 1-2 times per month. Previous Treatmen t: None. IV drug use: No. Drug use interferes with work/home: No. Ready t o change: No. Household substance abuse concerns: No. Cessation Educatio n Provided: Yes. Alcohol Never Smoking Status Current some day smoker; Ty pe: Cigarettes; Previous treatment: None; Ready to change: Yes; Concerns about tobacco use in household: No; Exposure to Tobacco Smoke pt smokes; Other Tobacco Frequency 3 cigarettes a day; Cigarette Smoking Last 365 Days No; Reg Smoking Cessation Counseling Yes1 1pt states she was "stress smoking" and will stop now that has a job. Assessment and Plan No data available for this section
--- OUTSIDE RECORDS SUMMARY | 2019-08-31 11:01 | XMS REPORT | Summary of Care ---
Author Author [facility] Organization [facility] Address Unknown Phone Unavailable Encounter ANDREINA Yoder(YOUNG) [id number] Date(s): 12/07/14 - 12/08/14 [facility] [address] [place] [address]- Discharge Diagnosis: Chest pain Discharge Disposition: Home Attending Physician: Liliana Lyles MD Admitting Physician: Liliana Lyles MD Vital Signs 1 2 3 Most recent to oldest [Reference Range]: 160.02 cm (12/08/14 3:51 AM) 160.02 cm (12/07/14 5:35 PM) Height 1 2 3 Most recent to oldest [Reference Range]: 97.4 DegF (12/08/14 8:00 AM) 97.5 DegF (12/08/14 3:10 AM) 97.7 DegF (12/08/14 2:24 AM) Temperature Oral [96.4-99.1 DegF] 1 2 3 Most recent to oldest [Reference Range]: 139/89 mmHg (12/08/14 12:05 PM) 121/84 mmHg (12/08/14 8:00 AM) 159/96 mmHg *HI* (12/08/14 3:10 AM) Blood Pressure [90-140/60-90 mmHg] 1 2 3 Most recent to oldest [Reference Range]: 20 BRMIN (12/08/14 12:05 PM) 20 BRMIN (12/08/14 8:00 AM) 20 BRMIN (12/08/14 3:10 AM) Respiratory Rate [14-20 BRMIN] 1 2 3 Most recent to oldest [Reference Range]: 84 bpm (12/08/14 8:00 AM) 95 bpm (12/08/14 3:10 AM) 130 bpm *HI* (12/07/14 5:35 PM) Peripheral Pulse Rate [60-100 bpm] 1 2 3 Most recent to oldest [Reference Range]: 81.818 kg (12/08/14 10:32 AM) 81.818 kg (12/08/14 3:51 AM) 77.273 kg (12/07/14 5:35 PM) Weight 1 2 3 Most recent to oldest [Reference Range]: 31.95 m2 (12/08/14 3:51 AM) 30.18 m2 (12/07/14 5:35 PM) Body Mass Index Problem List Condition Effective Dates Status Health Status Informan t Congestive heart Active failure (CHF)(Confirmed) Hypertension(Confirm Active ed) Myocardial Resolved infarction(Confirmed )1 13 Allergies, Adverse Reactions, Alerts Substance Reaction Severity Status Compazine Active penicillins Active Reglan Active Toradol Active Zofran Active Medications aspirin 325 mg tablet 325 mg, 1 tab, Route: PO, Drug form: TAB, Daily, Dosing Weight 81.818, kg, Start date: 12/08/14 11:39:00, Duration: 30 day, Stop date: 01/07/15 9:00:00 Notes: Take with food. Start Date: 12/08/14 Stop Date: 12/08/14 Status: Discontinued aspirin 325 mg tablet 325 mg = 1 tab, PO, Daily, # 30 tab, 0 Refill(s) Start Date: 12/08/14 Status: Ordered atropine 0.5 mg, 5 mL, Route: IVP, Drug form: INJ, PRN, PRN Bradycardia, Start date: 08/17 3:28:00, Duration: 30 day, Stop date: 01/07/15 3:27:00 Start Date: 12/08/14 Stop Date: 12/08/14 Status: Discontinued Bentyl 20 mg, Route: PO, ONCE, Dosing Weight 77.273, kg, Start date: 12/07/14 23:41:00, Stop date: 12/07/14 23:41:00 Start Date: 12/07/14 Stop Date: 12/08/14 Status: Completed Carafate 1 g/10 mL oral suspension 1 gm = 10 ml, PO, QID-Before Meals, # 1200 mL, 0 Refill(s) Start Date: 12/08/14 Stop Date: 01/07/15 Status: Ordered Carafate 1 g/10 mL oral suspension 1 gm, 10 mL, Route: PO, Drug form: SUSP, QID, Dosing Weight 81.818, kg, Start da te: 12/08/14 13:00:00, Duration: 30 day, Stop date: 01/07/15 9:00:00 Notes: Enteral feeds may interfere with the absorption of this medication. Addi e well. Take 1 hr before or 2 hrs after antacids, dairy pdt, minerals & meals. (Same As: Carafate) Start Date: 12/08/14 Stop Date: 12/08/14 Status: Discontinued cloNIDine 0.1 mg, Route: PO, Drug form: TAB, ONCE, Dosing Weight 77.273, kg, Priority: STA T, Start date: 12/07/14 19:49:00, Stop date: 12/07/14 19:49:00 Start Date: 12/07/14 Stop Date: 12/07/14 Status: Completed cloNIDine 0.1 mg oral tablet 0.1 mg, 1 tab, Route: PO, Drug form: TAB, Q8H, Dosing Weight 81.818, kg, PRN Lesley vated BP, Start date: 12/08/14 11:16:00, Duration: 30 day, Stop date: 01/07/15 1 1:15:00, [id number] Notes: (Same As: Catapres) Start Date: 12/08/14 Stop Date: 12/08/14 Status: Discontinued cloNIDine 0.1 mg oral tablet 0.1 mg = 1 tab, PO, TID, PRN Hypertension, 0 Refill(s) Start Date: 12/08/14 Status: Ordered erythromycin 250 mg oral delayed release capsule 250 mg = 1 cap, PO, Q6H, # 40 cap, 0 Refill(s) Start Date: 12/08/14 Stop Date: 12/18/14 Status: Ordered erythromycin 250 mg oral enteric coated tablet 250 mg, 1 tab, Route: PO, Drug form: ECTAB, Q6H, Dosing Weight 81.818, kg, Start date: 12/08/14 12:00:00, Duration: 30 day, Stop date: 01/07/15 6:00:00 Notes: (Same as: Brenton-Tab) Give With Food "Do Not Crush" Start Date: 12/08/14 Stop Date: 12/08/14 Status: Discontinued GI cocktail 30 mL, Route: PO, Drug Form: SUSP, Dosing Weight 77.273, kg, ONCE, STAT, Start d ate: 12/07/14 20:59:00, Stop date: 12/07/14 20:59:00 Notes: G.I. Cocktail = antacid with simethicone 22.5 mL - lidocaine viscous 7.5 mL Start Date: 12/07/14 Stop Date: 12/07/14 Status: Completed hyoscyamine 0.125 mg, 1 tab, Route: SL, Drug form: TAB, Before Meals & Bedtime, Dosing Weight 81.818, kg, Start date: 12/08/14 11:30:00, Duration: 30 day, Stop date: 01/07/15 7:30:00 Notes: (Same as: Levsin) Take 30 min before meal Start Date: 12/08/14 Stop Date: 12/08/14 Status: Discontinued hyoscyamine 0.125 mg sublingual tablet 0.125 mg = 1 tab, SL, Before Meals & Bedtime, 0 Refill(s) Start Date: 12/08/14 Status: Ordered labetalol 20 mg, 4 mL, Route: IV, Drug form: INJ, Q6H, Dosing Weight 77.273, kg, PRN Hyper tension, Start date: 12/08/14 1:13:00, Duration: 30 day, Stop date: 01/07/15 1:1 2:00 Notes: (Same as: Normodyne, Trandate)Push over 2 minutes Give bolus over 2-3 mi nutes. Start Date: 12/08/14 Stop Date: 12/08/14 Status: Discontinued Lasix 20 mg oral tablet 20 mg = 1 tab, PO, Daily, 0 Refill(s) Start Date: 12/08/14 Stop Date: 12/08/14 Status: Completed levothyroxine 200 microgram, 1 tab, Route: PO, Drug form: TAB, Daily, Dosing Weight 81.818, kg , Start date: 12/09/14 9:00:00, Duration: 30 day, Stop date: 01/07/15 9:00:00 Notes: Take 1 hour before or 2 hours after meal; Enteral feeds may interefere wi th the absorption of this medication. (Same as: Levothroid) Start Date: 12/09/14 Stop Date: 12/08/14 Status: Canceled levothyroxine 200 mcg (0.2 mg) oral tablet 200 microgram = 1 tab, PO, Daily, # 30 tab, 0 Refill(s) Start Date: 12/08/14 Status: Ordered lisinopril 20 mg, 1 tab, Route: PO, Drug form: TAB, BID, Dosing Weight 81.818, kg, Start da te: 12/08/14 17:00:00, Duration: 30 day, Stop date: 01/07/15 9:00:00 Notes: (Same as: Prinivil, Zestril) Start Date: 12/08/14 Stop Date: 12/08/14 Status: Canceled lisinopril 20 mg oral tablet 20 mg = 1 tab, PO, BID, # 60 tab, 0 Refill(s) Start Date: 12/08/14 Status: Ordered metoprolol 50 mg oral tablet, extended release 50 mg = 1 tab, PO, BID, 0 Refill(s) Start Date: 12/08/14 Status: Ordered morphine Sulfate 4 mg, Route: IVP, Drug form: INJ, ONCE, Dosing Weight 77.273, kg, Priority: STAT , Start date: 12/07/14 22:35:00, Stop date: 12/07/14 22:35:00 Start Date: 12/07/14 Stop Date: 12/07/14 Status: Completed morphine Sulfate 4 mg, Route: IVP, Drug form: INJ, ONCE, Dosing Weight 77.273, kg, Priority: STAT , Start date: 12/07/14 20:58:00, Stop date: 12/07/14 20:58:00 Start Date: 12/07/14 Stop Date: 12/07/14 Status: Completed morphine Sulfate 2 mg, 1 mL, Route: IVP, Drug form: INJ, Q4H, Dosing Weight 81.818, kg, PRN Pain Score 7-10, Start date: 12/08/14 4:07:00, Duration: 30 day, Stop date: 01/07/15 4:06:00 Notes: (Same as:MORPhine Sulfate) Start Date: 12/08/14 Stop Date: 12/08/14 Status: Discontinued morphine Sulfate 4 mg, Route: IVP, Drug form: INJ, ONCE, Dosing Weight 77.273, kg, Priority: STAT , Start date: 12/08/14 0:26:00, Stop date: 12/08/14 0:26:00 Start Date: 12/08/14 Stop Date: 12/08/14 Status: Completed morphine Sulfate 4 mg, Route: IVP, Drug form: INJ, ONCE, Dosing Weight 77.273, kg, Priority: STAT , Start date: 12/08/14 0:34:00, Stop date: 12/08/14 0:34:00 Start Date: 12/08/14 Stop Date: 12/08/14 Status: Completed nitroglycerin 0.4 mg sublingual tablet 0.4 mg, 1 tab, Route: SL, Drug form: TAB, Q5Min, PRN Chest Pain, Start date: 08/17 3:28:00, Duration: 30 day, Stop date: 01/07/15 3:27:00 Notes: (Same as:Nitroquick, Nitrostat)"Do Not Crush" Sublingual tablet Start Date: 12/08/14 Stop Date: 12/08/14 Status: Discontinued Nitrostat 0.4 mg sublingual tablet 0.4 mg, 1 tab, Route: SL, Drug form: TAB, Q5Min, Dosing Weight 77.273, kg, PRN C hest Pain, Start date: 12/08/14 1:01:00, Duration: 30 day, Stop date: 01/07/15 1 :00:00 Notes: (Same as:Nitroquick, Nitrostat)"Do Not Crush" Sublingual tablet Start Date: 12/08/14 Stop Date: 12/08/14 Status: Discontinued NS (Bolus) IV 1,000 mL, 1,000 ml/hr, Infuse Over: 1 hr, Route: IV, ONCE, Priority: STAT, Dosin g Weight 77.273 kg, Start date: 12/07/14 19:48:00, Duration: 1 doses or times, S top date: 12/07/14 19:48:00 Start Date: 12/07/14 Stop Date: 12/07/14 Status: Completed pantoprazole 40 mg, 1 tab, Route: PO, Drug form: ECTAB, Before Dinner, Dosing Weight 81.818, kg, Start date: 12/08/14 16:30:00, Duration: 30 day, Stop date: 01/06/15 16:30:0 0 Notes: Tablet should not be chewed or crushed.(Same as: Protonix) Start Date: 12/08/14 Stop Date: 12/08/14 Status: Canceled pantoprazole 40 mg, 1 tab, Route: PO, Drug form: ECTAB, Before Dinner, Dosing Weight 77.273, kg, Start date: 12/08/14 16:30:00, Duration: 30 day, Stop date: 01/06/15 16:30:0 0 Notes: Tablet should not be chewed or crushed.(Same as: Protonix) Start Date: 12/08/14 Stop Date: 12/08/14 Status: Canceled pantoprazole 40 mg oral enteric coated tablet 40 mg = 1 tab, PO, Before Dinner, 0 Refill(s) Start Date: 12/08/14 Status: Ordered Phenergan 12.5 mg, Route: IVPB, ONCE, Dosing Weight 77.273, kg, Priority: STAT, Start date : 12/08/14 0:34:00, Stop date: 12/08/14 0:34:00 Start Date: 12/08/14 Stop Date: 12/08/14 Status: Completed Phenergan 12.5 mg, Route: IVPB, ONCE, Dosing Weight 77.273, kg, Priority: STAT, Start date : 12/08/14 0:25:00, Stop date: 12/08/14 0:25:00 Start Date: 12/08/14 Stop Date: 12/08/14 Status: Completed Phenergan 12.5 mg, Route: IVPB, ONCE, Dosing Weight 77.273, kg, Priority: STAT, Start date : 12/07/14 19:49:00, Stop date: 12/07/14 19:49:00 Start Date: 12/07/14 Stop Date: 12/07/14 Status: Completed Phenergan + Sodium Chloride 0.9% IV 50 mL 12.5 mg, 0.5 mL, Route: IVPB, Q4H, Dosing Weight 81.818, kg, PRN Nausea & Vomiting, Start date: 12/08/14 4:10:00, Duration: 30 day, Stop date: 01/07/15 4 :09:00 Notes: Do not give IV push. (Same as: Phenergan) Start Date: 12/08/14 Stop Date: 12/08/14 Status: Discontinued Plavix 75 mg, 1 tab, Route: PO, Drug form: TAB, Daily, Dosing Weight 81.818, kg, Start date: 12/09/14 9:00:00, Duration: 30 day, Stop date: 01/07/15 9:00:00 Notes: (Same As: Plavix) Start Date: 12/09/14 Stop Date: 12/08/14 Status: Canceled Plavix 75 mg oral tablet 75 mg = 1 tab, PO, Daily, # 30 tab, 0 Refill(s) Start Date: 12/08/14 Status: Ordered promethazine 25 mg oral tablet 25 mg = 1 tab, PO, Q4H, PRN Nausea/Vomiting, 0 Refill(s) Start Date: 12/08/14 Status: Ordered Protonix 40 mg, Route: IVP, ONCE, Dosing Weight 77.273, kg, Priority: STAT, Start date: 0 12/07/14 20:58:00, Stop date: 12/07/14 20:58:00 Start Date: 12/07/14 Stop Date: 12/07/14 Status: Completed Restoril 30 mg oral capsule 30 mg = 1 cap, PO, Bedtime, PRN Sleep, 0 Refill(s) Start Date: 12/08/14 Stop Date: 12/15/14 Status: Ordered Saline Flush 0.9% 10 ml, Route: IVP, Drug Form: INJ, Dosing Weight 81.818, kg, PRN, PRN Line Flush , Start date: 12/08/14 4:07:00, Duration: 30 day, Stop date: 01/07/15 4:06:00 Notes: (Same as: BD Posiflush) Start Date: 12/08/14 Stop Date: 12/08/14 Status: Discontinued Sodium Chloride 0.9% IV 1,000 mL 1,000 mL, Rate: 125 ml/hr, Infuse over: 8 hr, Route: IV, Dosing Weight 81.818 kg , Total Volume: 1,000, Start date: 12/08/14 4:07:00, Duration: 30 day, Stop date : 01/07/15 4:06:00 Start Date: 12/08/14 Stop Date: 12/08/14 Status: Discontinued Toprol-XL 50 mg oral tablet, extended release 50 mg, 1 tab, Route: PO, Drug form: ERTAB, Daily, Start date: 12/09/14 9:00:00, Duration: 30 day, Stop date: 01/07/15 9:00:00 Notes: (Same as: Toprol XL) May split tab, but do not crush. Start Date: 12/09/14 Stop Date: 12/08/14 Status: Canceled tramadol 50 mg oral tablet 50 mg = 1 tab, PO, Q6H, PRN Pain, 0 Refill(s) Start Date: 12/08/14 Stop Date: 12/08/14 Status: Discontinued tramadol 50 mg oral tablet 50 mg = 1 tab, PO, Q6H, PRN Pain, # 30 tab, 0 Refill(s) Start Date: 12/08/14 Stop Date: 12/26/14 Status: Ordered Valium 10 mg, 1 tab, Route: PO, Drug form: TAB, TID, Dosing Weight 81.818, kg, PRN as n eeded for anxiety, Start date: 12/08/14 11:16:00, Duration: 30 day, Stop date: 1 11:15:00 Notes: (Same as: Valium) Start Date: 12/08/14 Stop Date: 12/08/14 Status: Discontinued Valium 10 mg oral tablet 10 mg = 1 tab, PO, TID, PRN Anxiety, 0 Refill(s) Start Date: 12/08/14 Stop Date: 12/15/14 Status: Ordered Results ELECTROLYTES 1 2 3 Most recent to oldest [Reference Range]: 140 mEq/L (12/08/14 5:52 AM) 140 mEq/L (12/07/14 5:48 PM) Sodium Lvl [135-145 mEq/L] 4.0 mEq/L (12/08/14 5:52 AM) 4.1 mEq/L (12/07/14 5:48 PM) Potassium Lvl [3.5-5.1 mEq/L] 110 mEq/L *HI* (12/08/14 5:52 AM) 107 mEq/L (12/07/14 5:48 PM) Chloride Lvl [95-109 mEq/L] 21 mEq/L *LOW* (12/08/14 5:52 AM) 25 mEq/L (12/07/14 5:48 PM) CO2 [24-32 mEq/L] 13.0 mEq/L (12/08/14 5:52 AM) 12.1 mEq/L (12/07/14 5:48 PM) AGAP [10.0-20.0 mEq/L] CHEM PANEL 1 2 3 Most recent to oldest [Reference Range]: 0.7 mg/dL (12/08/14 5:52 AM) 1.0 mg/dL (12/07/14 5:48 PM) Creatinine Lvl [0.5-1.4 mg/dL] 99 mL/min/1.73m2 1 *NA* (12/08/14 5:52 AM) 64 mL/min/1.73m2 2 *NA* (12/07/14 5:48 PM) eGFR 12 mg/dL (12/08/14 5:52 AM) 14 mg/dL (12/07/14 5:48 PM) BUN [7-22 mg/dL] 14 (12/07/14 5:48 PM) B/C Ratio [6-25] 130 mg/dL *HI* (12/08/14 5:52 AM) 97 mg/dL (12/07/14 5:48 PM) Glucose Lvl [70-99 mg/dL] 7.7 g/dL (12/07/14 5:48 PM) Total Protein [6.4-8.4 g/dL] 3.6 g/dL (12/07/14 5:48 PM) Albumin Lvl [3.5-5.0 g/dL] 4.1 g/dL *HI* (12/07/14 5:48 PM) Globulin [2.0-4.0 g/dL] 0.9 (12/07/14 5:48 PM) A/G Ratio [0.7-1.6] 8.7 mg/dL (12/08/14 5:52 AM) 9.4 mg/dL (12/07/14 5:48 PM) Calcium Lvl [8.5-10.5 mg/dL] 55 unit/L (12/07/14 5:48 PM) ALT [0-65 unit/L] 31 unit/L (12/07/14 5:48 PM) AST [0-37 unit/L] 158 unit/L *HI* (12/07/14 5:48 PM) Alk Phos [39-136 unit/L] 0.5 mg/dL (12/07/14 5:48 PM) Bili Total [0.2-1.3 mg/dL] 64 unit/L *LOW* (12/07/14 9:43 PM) Lipase Lvl [73-393 unit/L] 1Result Comment: The eGFR is calculated using [...] 3 Most recent to oldest [Reference Range]: 89 unit/L (12/08/14 5:52 AM) 116 unit/L (12/07/14 5:48 PM) Total CK [12-191 unit/L] 1.3 ng/mL (12/08/14 5:52 AM) 1.1 ng/mL (12/07/14 5:48 PM) CK MB [0.5-3.6 ng/mL] 1.5 (12/08/14 5:52 AM) 0.9 (12/07/14 5:48 PM) CK MB Index [0.0-2.5] <0.02 ng/mL (12/08/14 5:52 AM) <0.02 ng/mL (12/07/14 9:43 PM) <0.02 ng/mL (12/07/14 5:48 PM) Troponin-I [0.00-0.40 ng/mL] 8 pg/mL (12/07/14 8:57 PM) BNP [<=100 pg/mL] LIPIDS 1 2 3 Most recent to oldest [Reference Range]: 6.70 *HI* (12/08/14 5:52 AM) CHD Risk [3.90-5.80] 288 mg/dL *HI* (12/08/14 5:52 AM) Chol [<=199 mg/dL] 153 mg/dL *HI* (12/08/14 5:52 AM) Trig [<=149 mg/dL] 43 mg/dL *LOW* (12/08/14 5:52 AM) HDL [>=61 mg/dL] 214 mg/dL *HI* (12/08/14 5:52 AM) LDL (Calculated) [<=99 mg/dL] 31 *NA* (12/08/14 5:52 AM) VLDL HEMATOLOGY 1 2 3 Most recent to oldest [Reference Range]: 6.0 K/CMM (12/08/14 5:52 AM) 6.6 K/CMM (12/07/14 5:48 PM) WBC [3.7-10.4 K/CMM] 4.59 M/CMM (12/08/14 5:52 AM) 4.70 M/CMM (12/07/14 5:48 PM) RBC [4.20-5.40 M/CMM] 12.4 g/dL (12/08/14 5:52 AM) 12.6 g/dL (12/07/14 5:48 PM) Hgb [12.0-16.0 g/dL] 38.0 % (12/08/14 5:52 AM) 38.9 % (12/07/14 5:48 PM) Hct [36.0-48.0 %] 82.9 fL (12/08/14 5:52 AM) 82.8 fL (12/07/14 5:48 PM) MCV [80.0-98.0 fL] 27.0 pg (12/08/14:52 AM) 26.9 pg *LOW* (12/07/14:48 PM) MCH [27.0-31.0 pg] 32.6 g/dL (12/08/14:52 AM) 32.5 g/dL (12/07/14 5:48 PM) MCHC [32.0-36.0 g/dL] 16.5 % *HI* (12/08/14 5:52 AM) 16.5 % *HI* (12/07/14 5:48 PM) RDW [11.5-14.5 %] 316 K/CMM (12/08/14:52 AM) 330 K/CMM (12/07/14 5:48 PM) Platelet [133-450 K/CMM] 7.9 fL (12/08/14 5:52 AM) 8.0 fL (12/07/14 5:48 PM) MPV [7.4-10.4 fL] 42.1 % *LOW* (12/08/14 5:52 AM) 47.0 % (12/07/14 5:48 PM) Segs [45.0-75.0 %] 42.1 % *HI* (12/08/14 5:52 AM) 41.1 % *HI* (12/07/14 5:48 PM) Lymphocytes [20.0-40.0 %] 10.5 % (12/08/14 5:52 AM) 9.1 % (12/07/14 5:48 PM) Monocytes [2.0-12.0 %] 4.2 % *HI* (12/08/14 5:52 AM) 2.2 % (12/07/14 5:48 PM) Eosinophils [0.0-4.0 %] 1.1 % *HI* (12/08/14 5:52 AM) 0.6 % (12/07/14 5:48 PM) Basophils [0.0-1.0 %] 2.5 K/CMM (12/08/14 5:52 AM) 3.1 K/CMM (12/07/14 5:48 PM) Segs-Bands # [1.5-8.1 K/CMM] 2.5 K/CMM (12/08/14 5:52 AM) 2.7 K/CMM (12/07/14 5:48 PM) Lymphocytes # [1.0-5.5 K/CMM] 0.6 K/CMM (12/08/14 5:52 AM) 0.6 K/CMM (12/07/14 5:48 PM) Monocytes # [0.0-0.8 K/CMM] 0.3 K/CMM (12/08/14 5:52 AM) 0.1 K/CMM (12/07/14 5:48 PM) Eosinophils # [0.0-0.5 K/CMM] 0.1 K/CMM (12/08/14 5:52 AM) Basophils # [0.0-0.2 K/CMM] 13.5 seconds (12/07/14 5:48 PM) PT [12.0-14.7 seconds] 1.00 (12/07/14 5:48 PM) INR [0.85-1.17] 29.0 seconds (12/07/14 5:48 PM) PTT [22.9-35.8 seconds] Immunizations No data available for this section Procedures Procedure Date Related Diagnosis Body Site Hysterectomy Procedure on back Stent placement Thyroidectomy Social History Social History Type Response Substance Abuse Use: Current. Type: Mariju natalia. Recreational Drug Route: Oral. Frequency: 1-2 times per month. Previous Treatmen t: None. IV drug use: No. Drug use interferes with work/home: No. Ready t o change: No. Household substance abuse concerns: No. Cessation Educatio n Provided: Yes. Alcohol Never Smoking Status Former smoker; Type: Cigare ttes; Previous treatment: None; Ready to change: Yes; Concerns about tobacco use in hous ehold: No; Exposure to Tobacco Smoke None; Other Tobacco Frequency 3 cigaret lam a day; Cigarette Smoking Last 365 Days No; Reg Smoking Cessation Coun seling Yes1 1pt states she was "stress smoking" and will stop now that has a job. Assessment and Plan No data available for this section
--- OUTSIDE RECORDS SUMMARY | 2019-08-31 11:01 | XMS REPORT | Continuity of Care Document ---
Author Author Jacob Plascencia [employer] Address Unknown Phone Unavailable Care Team Providers Care Blacksmith Assistant Name Role Phone [employer] Unavailable Un available Problems Problem Status Onset Date Classification Date Reported Comments Source Discharge Diagnosis: Dental caries, unspecified 03/27/2016 03/30/2016 [facility] Discharge Diagnosis: Other specified dis orders of teeth and supporting structures 03/27/2016 03/30/2016 [facility] Discharge Diagnosis: Periapical abscess without sinus 03/27/2016 03/30/2016 [facility] MOUTH PAIN Active 03/27/2016 [facility] ACUTE CHEST PAIN. GASTRP ARESOS Active 04/11/2015 [facility] ACUTE CHEST PAIN GASTRPARESIS Active 04/11/2015 [facility] Discharge Diagnosis: Chest pain 12/07/2014 12/11/2014 [facility] CHEST PAIN Active 12/07/2014 [facility] ACUTE CHEST PAIN, RULE OUT ACS Active 11/23/2014 [facility] Congestive heart failure (disorder) Active Problem 03/2017 [facility] Hypertensive disorder, systemic arterial (disorder) Active Problem 04/16/2016 [facility] Myocardial infarction (disorder) Resolved Problem 03/2017 3 [facility] 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 (Same as: Tylenol) Inactive 04/13/2016 [facility] Acetaminophen 300 MG / Codeine Phosphate 30 MG Oral Tablet [Tylenol with Codeine #3] 1 - 2 tab, PO, Q4H, PRN Pain, X 2 day, # 20 tab, 0 Refill(s) No Longer Active 04/13/2016 [facility] atorvastatin 40 mg oral tablet 80 mg = 2 tab, PO, Bedtime, # 60 tab, 0 Refill(s) Active 04/13/2016 [facility] Morphine Notes: (Same as:MORPh ine Sulfate) No Longer Active 04/12/2016 [facility] pantoprazole Notes: Tablet marquez uld not be chewed or crushed. (Same as: Protonix) N o Longer Active 04/12/2016 [facility] Morphine Notes: (Same as:MORPh ine Sulfate) Inactive 04/12/2016 [facility] atorvastatin Notes: (Same as: Lipitor) No Longer Active 04/12/2016 [facility] metoprolol tartrate Notes: (Sa me as: Toprol XL) May split tab, but do not crush. N o Longer Active 04/12/2016 [facility] Lisinopril Notes: (Same as: Pr inivil, Zestril) No Longer Active 04/12/2016 [facility] Plavix Notes: (Same As: Plavix) No Longer Active 04/12/2016 [facility] Norvasc Notes: (Same as: Norva sc) No Longer Active 04/12/2016 [facility] Saline Flush 0.9% Notes: (Same as: BD Posiflush) No Longer Active 04/12/2016 [facility] heparin Notes: porcine heparin No Longer Active 04/12/2016 [facility] Sucralfate 100 MG/ML Oral Suspension [Carafate] Notes: May interfere w/enteral feeds - Take 1 hr before or 2 hr after antacids, dairy pdt, meals & minerals - On empty stomach. For patients unable to swallow tablet, dissolve in 10mL - 30mL of water or juice and stir before giving. (Same As: Carafate) No Longer Activ e 04/12/2016 [facility] Thyroxine Notes: Take 1 hour b efore or 2 hours after meal; Enteral feeds may interefere with the absorption of this medication. (Same as: Levothroid) No Longe r Active 04/12/2016 [facility] Aspirin 325 MG Oral Tablet Not es: Take with food. No Longer Active 04/12/2016 [facility] Clonidine Hydrochloride 0.1 MG Oral Tablet Notes: (Same As: Catapres) No Longer Active 04/12/2016 [facility] Acetaminophen 325 MG / Hydrocodone Marcio trate 5 MG Oral Tablet [[place] 5/325] Notes: (Same as: [place] 325/5) Do not ex ceed 4gm/day of acetaminophen. No Longer Activ e 04/12/2016 [facility] Ativan Notes: (Same as: Ativan) No Longer Active 04/12/2016 [facility] Morphine Notes: (Same as:MORPh ine Sulfate) Inactive 04/12/2016 [facility] 24 HR tramadol hydrochloride 100 MG Exte nded Release Tablet 100 mg = 1 tab, PO, Q4H, 0 Refill(s) Active 04/12/2016 [facility] Amlodipine 10 MG Oral Tablet [Norvasc] See Instructions, 1 tab PO Daily, 0 Refill(s) Active 04/12/2016 [facility] Saline Flush 0.9% Notes: (Same as: BD Posiflush) No Longer Active 04/12/2016 [facility] Morphine Notes: (Same as:MORPh ine Sulfate) Inactive 04/12/2016 [facility] Nitroglycerin Notes: (Same as: Nitroquick, Nitrostat) "Do Not Crush" Sublingual tablet No Longer Active 04/12/2016 [facility] Ativan 0.5 mg, Route: IVP, Bandar g form: INJ, ONCE, Dosing Weight 72.727, kg, Priority: STAT, Start date: 04/12/16 1:56:00 DIRECTOR SALES, Stop date: 04/12/16 1:56:00 DIRECTOR SALES Inactive 04/12/2016 [facility] Morphine Notes: (Same as:MORPh ine Sulfate) No Longer Active 04/12/2016 [facility] Nitroglycerin Notes: (Same as: Nitroquick, Nitrostat) "Do Not Crush" Sublingual tablet No Longer Active 04/12/2016 [facility] Famotidine Notes: (Same as: Pe pcid) Can be dilute in 5- 10cc NS IVP: Slow IV push over at least 2 minutes. No Longer Active 04/12/2016 [facility] Saline Flush 0.9% Notes: Same as: BD Posiflush Sterile No Longer Active 04/12/2016 [facility] Acetaminophen 300 MG / Codeine Phosphate 30 MG Oral Tablet [Tylenol with Codeine #3] 1 - 2 tab, PO, Q4H, PRN Pain, X 3 day, # 20 tab, 0 Refill(s) Active 03/27/2016 [facility] Clindamycin 300 MG Oral Capsule [Cleocin] 300 mg = 1 cap, PO, QID, X 10 day, # 40 cap, 0 Refill(s) Active 03/27/2016 [facility] Dilaudid 0.5 mg, 0.5 mL, Route : IM, Drug form: INJ, ONCE, Dosing Weight 72.727, kg, Priority: STAT, Start date: 03/27/16 10:29:00 DIRECTOR SALES, Stop date: 03/27/16 10:29:00 DIRECTOR SALES Inactive 03/27/2016 [facility] Acetaminophen 325 MG / Hydrocodone Marcio trate 10 MG Oral Tablet [[place] 10/325] 1 tab, Route: PO, Drug Form: TAB, Dosing Weight 72.727, kg, ONCE, STAT, Start date: 03/27/16 10:26:00 DIRECTOR SALES, Stop date: 03/27/16 10:26:00 DIRECTOR SALES Inactive 03/27/2016 [facility] Clindamycin Notes: (clindamyci n 150 mg/1 ml (600 mg/4 ml VL) INJ) (Same As: Cleocin) Inactive 03/27/2016 [facility] Thyroxine Notes: Take 1 hour b efore or 2 hours after meal; Enteral feeds may interefere with the absorption of this medication. (Same as: Levothroid) No Longe r Active 12/09/2014 [facility] Plavix Notes: (Same As: Plavix) No Longer Active 12/09/2014 [facility] 24 HR Metoprolol Tartrate 50 MG Extended Release Tablet [Toprol] Notes: (Same as: Toprol XL) May split t ab, but do not crush. No Longer Active 12/09/2014 [facility] Lisinopril Notes: (Same as: Pr inivil, Zestril) Inactive 12/08/2014 [facility] pantoprazole Notes: Tablet marquez uld not be chewed or crushed. (Same as: Protonix) Inactive 12/08/2014 [facility] Sucralfate 100 MG/ML Oral Suspension [Carafate] Notes: Enteral feeds may interfere with the absorption of this medication. Shake well. Take 1 hr before or 2 hrs after antacids, dairy pdt, minerals & meals. (Same As: Carafate) Inactive 12/08/2014 [facility] Erythromycin 250 MG Enteric Coated Tablet Notes: (Same as: Brenton-Tab) Give With Food "Do Not Crush" Inactive 12/08/2014 [facility] Sucralfate 100 MG/ML Oral Suspension [Carafate] 1 gm = 10 ml, PO, QID-Before Meals, # 1200 mL, 0 Refill(s) Active 12/08/2014 [facility] tramadol hydrochloride 50 MG Oral Tablet 50 mg = 1 tab, PO, Q6H, PRN Pain, # 30 tab, 0 Refill(s) Active 12/08/2014 [facility] Aspirin 325 MG Oral Tablet Not es: Take with food. Inactive 12/08/2014 [facility] Hyoscyamine Notes: (Same as: L evsin) Take 30 min before meal Inactive 12/08/2014 [facility] Valium Notes: (Same as: Valium) Inactive 12/08/2014 [facility] Clonidine Hydrochloride 0.1 MG Oral Tablet Notes: (Same As: Catapres) Inactive 12/08/2014 [facility] Diazepam 10 MG Oral Tablet [Valium] 10 mg = 1 tab, PO, TID, PRN Anxiety, 0 Refill(s) Active 12/08/2014 [facility] Temazepam 30 MG Oral Capsule [Restoril] 30 mg = 1 cap, PO, Bedtime, PRN Sleep, 0 Refill(s) Active 12/08/2014 [facility] clopidogrel 75 MG Oral Tablet [Plavix] 75 mg = 1 tab, PO, Daily, # 30 tab, 0 Refill(s) Active 12/08/2014 [facility] tramadol hydrochloride 50 MG Oral Tablet 50 mg = 1 tab, PO, Q6H, PRN Pain, 0 Refill(s) Inactive 12/08/2014 [facility] promethazine 25 mg oral tablet 25 mg = 1 tab, PO, Q4H, PRN Nausea/Vomiting, 0 Refill(s) Active 12/08/2014 [facility] pantoprazole 40 mg oral enteric coated tablet 40 mg = 1 tab, PO, Before Dinner, 0 Refill(s) Active 12/08/2014 [facility] metoprolol 50 mg oral tablet, extended release 50 mg = 1 tab, PO, BID, 0 Refill(s) Active 12/08/2014 [facility] lisinopril 20 mg oral tablet 2 0 mg = 1 tab, PO, BID, # 60 tab, 0 Refill(s) Active 12/08/2014 [facility] levothyroxine 200 mcg (0.2 mg) oral tablet 200 microgram = 1 tab, PO, Daily, # 30 tab, 0 Refill(s) Active 12/08/2014 [facility] hyoscyamine 0.125 mg sublingual tablet 0.125 mg = 1 tab, SL, Before Meals & Bedtime, 0 Refill(s) Active 12/08/2014 [facility] erythromycin 250 mg oral delayed release capsule 250 mg = 1 cap, PO, Q6H, # 40 cap, 0 Refill(s) Active 12/08/2014 [facility] Clonidine Hydrochloride 0.1 MG Oral Tablet 0.1 mg = 1 tab, PO, TID, PRN Hypertension, 0 Refill(s) Active 12/08/2014 [facility] Aspirin 325 MG Oral Tablet 325 mg = 1 tab, PO, Daily, # 30 tab, 0 Refill(s) Active 12/08/2014 [facility] Phenergan Notes: Do not give I V push. (Same as: Phenergan) Inactive 12/08/2014 [facility] Morphine Notes: (Same as:MORPh ine Sulfate) Inactive 12/08/2014 [facility] Sodium Chloride 0.154 MEQ/ML Injectable Solution 1,000 mL, Rate: 125 ml/hr, Infuse over: 8 hr, Route: IV, Dosing Weight 81.818 kg, Total Volume: 1,000, Start date: 12/08/14 4:07:00, Duration: 30 day, Stop date: 01/07/15 4:06:00 Inactive 12/08/2014 [facility] Saline Flush 0.9% Notes: (Same as: BD Posiflush) Inactive 12/08/2014 [facility] nitroglycerin 0.4 mg sublingual tablet Notes: (Same as:NitroNimisha hartmanntat) "Do Not Crush" Sublingual tablet Inactive 12/08/2014 [facility] atropine 0.5 mg, 5 mL, Route: IVP, Drug form: INJ, PRN, PRN Bradycardia, Start date: 12/08/14 3:28:00, Duration: 30 day, Stop date: 01/07/15 3:27:00 Inactive 12/08/2014 [facility] Furosemide 20 MG Oral Tablet [Lasix] 20 mg = 1 tab, PO, Daily, 0 Refill(s) Inactive 12/08/2014 [facility] Labetalol Notes: (Same as: Alisa Caodazoltan) Push over 2 minutes Give bolus over 2-3 minutes. Inactive 12/08/2014 [facility] Nitroglycerin 0.4 MG Sublingual Tablet [Nitrostat] Notes: (Same as:Nitroquick, Nitrostat) "Do Not Crush" Sublingual tablet Inactive 12/08/2014 [facility] Phenergan 12.5 mg, Route: IVPB , ONCE, Dosing Weight 77.273, kg, Priority: STAT, Start date: 12/08/14 0:34:00, Stop date: 12/08/14 0:34:00 Inactive 12/08/2014 [facility] Morphine 4 mg, Route: IVP, Bandar g form: INJ, ONCE, Dosing Weight 77.273, kg, Priority: STAT, Start date: 12/08/14 0:34:00, Stop date: 12/08/14 0:34:00 Inactive 12/08/2014 [facility] Morphine 4 mg, Route: IVP, Bandar g form: INJ, ONCE, Dosing Weight 77.273, kg, Priority: STAT, Start date: 12/08/14 0:26:00, Stop date: 12/08/14 0:26:00 Inactive 12/08/2014 [facility] Phenergan 12.5 mg, Route: IVPB , ONCE, Dosing Weight 77.273, kg, Priority: STAT, Start date: 12/08/14 0:25:00, Stop date: 12/08/14 0:25:00 Inactive 12/08/2014 [facility] Bentyl 20 mg, Route: PO, ONCE, Dosing Weight 77.273, kg, Start date: 12/07/14 23:41:00, Stop date: 12/07/14 23:41:00 No Longer Active 12/08/2014 [facility] Morphine 4 mg, Route: IVP, Bandar g form: INJ, ONCE, Dosing Weight 77.273, kg, Priority: STAT, Start date: 12/07/14 22:35:00, Stop date: 12/07/14 22:35:00 Inactive 12/08/2014 [facility] GI cocktail Notes: [place] = antacid with simethicone 22.5 mL - lidocaine viscous 7.5 mL Inactive 12/08/2014 [facility] Morphine 4 mg, Route: IVP, Bandar g form: INJ, ONCE, Dosing Weight 77.273, kg, Priority: STAT, Start date: 12/07/14 20:58:00, Stop date: 12/07/14 20:58:00 Inactive 12/08/2014 [facility] Protonix 40 mg, Route: IVP, ON CE, Dosing Weight 77.273, kg, Priority: STAT, Start date: 12/07/14 20:58:00, Stop date: 12/07/14 20:58:00 Inactive 12/08/2014 [facility] Clonidine 0.1 mg, Route: PO, D rug form: TAB, ONCE, Dosing Weight 77.273, kg, Priority: STAT, Start date: 12/07/14 19:49:00, Stop date: 12/07/14 19:49:00 Inactive 12/08/2014 [facility] Phenergan 12.5 mg, Route: IVPB , ONCE, Dosing Weight 77.273, kg, Priority: STAT, Start date: 12/07/14 19:49:00, Stop date: 12/07/14 19:49:00 Inactive 12/08/2014 [facility] Sodium Chloride 0.154 MEQ/ML Injectable Solution 1,000 mL, 1,000 ml/hr, Infuse Over: 1 hr, Route: IV, ONCE, Priority: STAT, Dosing Weight 77.273 kg, Start date: 12/07/14 19:48:00, Duration: 1 doses or times, Stop date: 12/07/14 19:48:00 Inactive 12/08/2014 [facility] metoprolol tartrate 50 mg oral tablet 50 mg = 1 tab, PO, Q12H, # 120 tab, 0 Refill(s) Active 12/01/2014 [facility] lisinopril 20 mg oral tablet 2 0 mg = 1 tab, PO, BID, # 60 tab, 0 Refill(s) Active 12/01/2014 [facility] clopidogrel 75 MG Oral Tablet [Plavix] 75 mg = 1 tab, PO, Daily, # 30 tab, 0 Refill(s) Active 12/01/2014 [facility] Aspirin 325 MG Oral Tablet 325 mg, PO, Daily, # 30 tab, 0 Refill(s) Active 12/01/2014 [facility] Temazepam 30 MG Oral Capsule [Restoril] 30 mg = 1 cap, PO, Bedtime, X 7 day, # 7 cap, 0 Refill(s) Active 12/01/2014 [facility] Diazepam 10 MG Oral Tablet [Valium] 10 mg = 1 tab, PO, TID, PRN Anxiety, X 7 day, # 21 tab, 0 Refill(s) Active 12/01/2014 [facility] levothyroxine 200 mcg (0.2 mg) oral tablet 200 microgram = 1 tab, PO, Daily, # 30 tab, 0 Refill(s) Active 12/01/2014 [facility] Clonidine Hydrochloride 0.1 MG Oral Tablet 0.1 mg = 1 tab, PO, TID, PRN Hypertension, # 90 tab, 0 Refill(s) Active 12/01/2014 [facility] tramadol hydrochloride 50 MG Oral Tablet 50 mg = 1 tab, PO, Q6H, PRN Pain, X 10 day, # 40 tab, 0 Refill(s) Active 12/01/2014 [facility] erythromycin 250 mg oral tablet 250 mg = 1 tab, PO, Q6H, X 10 day, # 40 tab, 0 Refill(s) Active 12/01/2014 [facility] promethazine 25 mg oral tablet 25 mg = 1 tab, PO, Q4H, PRN Allergic reaction, X 7 day, # 42 tab, 0 Refill(s) Active 12/01/2014 [facility] pantoprazole 40 mg oral enteric coated tablet 40 mg = 1 tab, PO, Before Dinner, # 30 tab, 0 Refill(s) Active 12/01/2014 [facility] hyoscyamine 0.125 mg sublingual tablet 0.125 mg = 1 tab, PO, Before Meals & Bedtime, # 120 tab, 0 Refill(s) Active 12/01/2014 [facility] hydrOXYzine hydrochloride 10 mg/5 mL oral syrup Notes: (Same as: Atarax) No Longer Active 11/29/2014 [facility] Erythromycin Ethylsuccinate 40 MG/ML Oral Suspension Notes: (Same as: E.E.S.-400) N o Longer Active 11/29/2014 [facility] Hydroxyzine Notes: (Same as: V istaril) Avoid alcohol. Inactive 11/29/2014 [facility] Tylenol Notes: Do not exceed 4 gm/day. (Same as: Tylenol) No Longer Active 11/28/2014 [facility] Dilaudid 1 mg, 1 mL, Route: IV , Drug form: INJ, Q4H, Dosing Weight 81.818, kg, PRN Pain Score 7-10, Start date: 11/28/14 11:53:00, Duration: 30 day, Stop date: 12/28/14 11:52:00 No Longer Active 11/28/2014 [facility] Levsin Notes: (Same as: Levsin ) Take 30 min before meal No Longer Active 11/28/2014 [facility] Protonix Notes: Tablet should not be chewed or crushed. (Same as: Protonix) No Longer Active 11/26/2014 [facility] Levsin Notes: (Same as: Levsin ) Take 30 min before meal No Longer Active 11/26/2014 [facility] Sodium Chloride 0.154 MEQ/ML Injectable Solution 500 mL, Rate: 25 ml/hr, Infuse over: 20 hr, Route: IV, Dosing Weight 81.818 kg, Total Volume: 500, Start date: 11/26/14 8:15:00, Duration: 1 day, Stop date: 11/27/14 8:14:00 No Longer Active 11/26/2014 [facility] Dilaudid 1 mg, 1 mL, Route: IV P, Drug form: INJ, ONCE, Dosing Weight 81.818, kg, Priority: STAT, Start date: 11/25/14 17:51:00, Stop date: 11/25/14 17:51:00 Inactive 11/25/2014 [facility] Plavix Notes: (Same As: Plavix) No Longer Active 11/25/2014 [facility] Aspirin 325 MG Oral Tablet Not es: Take with food. No Longer Active 11/25/2014 [facility] Thyroxine Notes: Take 1 hour b efore or 2 hours after meal; Enteral feeds may interefere with the absorption of this medication. (Same as: Levothroid) No Longe r Active 11/25/2014 [facility] Famotidine 20 MG Oral Tablet N otes: (Same as: Pepcid) No Longer Active 11/25/2014 [facility] Restoril Notes: (Same As: Rest oril) No Longer Active 11/25/2014 [facility] metoprolol tartrate Notes: (Sa me as: Lopressor) No Longer Active 11/25/2014 [facility] Lisinopril Notes: (Same as: Pr inivil, Zestril) No Longer Active 11/25/2014 [facility] Lipitor Notes: (Same as: Lipit or) No Longer Active 11/25/2014 [facility] Dilaudid 0.5 mg, 0.5 mL, Route : IV, Drug form: INJ, Q3H, Dosing Weight 81.818, kg, PRN Pain Score 7-10, Start date: 11/24/14 17:16:00, Duration: 30 day, Stop date: 12/24/14 17:15:00 No Longer Active 2014 [facility] Acetaminophen 325 MG / Hydrocodone Marcio trate 10 MG Oral Tablet [[place] 10/325] Notes: Do not exceed 4gm/day of acetamin ophen. (Same as: [place] 325/10) No Longer Active 2014 [facility] Valium Notes: (Same as: Valium) No Longer Active 2014 [facility] Phenergan Notes: Do not give I V push. (Same as: Phenergan) No Longer Active 2014 [facility] Saline Flush 0.9% Notes: (Same as: BD Posiflush) No Longer Active 2014 [facility] Dilaudid 0.5 mg, 0.5 mL, Route : IV, Drug form: INJ, Q4H, Dosing Weight 81.818, kg, PRN Pain Score 7-10, Start date: 11/23/14 18:49:00, Duration: 30 day, Stop date: 12/23/14 18:48:00 No Longer Active 11/23/2014 [facility] Phenergan Notes: (Same as: Phe nergan) No Longer Active 11/23/2014 [facility] Magnesium Sulfate 2 gm, 50 mL, Route: IVPB, Drug form: INJ, ONCE, Dosing Weight 81.818, kg, Total dose = 2 gm, Start date: 11/23/14 18:46:00, Duration: 1 doses or times, Stop date: 11/23/14 18:46:00 Inactive 11/23/2014 [facility] normal saline 0.9% IV 1,000 mL 1,000 mL, Rate: 80 ml/hr, Infuse over: 12.5 hr, Route: IV, Dosing Weight 81.818 kg, Total Volume: 1,000, Start date: 11/23/14 18:39:00, Stop date: 12/23/14 18:38:00 No Longer Active 11/23/2014 [facility] nitroglycerin 0.4 mg sublingual tablet Notes: (Same as:Nitroquick, Nitrostat) "Do Not Crush" Sublingual tablet No Longer Active 11/23/2014 [facility] atropine 0.5 mg, 5 mL, Route: IVP, Drug form: INJ, PRN, PRN Bradycardia, Start date: 11/23/14 18:36:00, Duration: 30 day, Stop date: 12/23/14 18:35:00 No Longer Active 11/23/2014 [facility] Pepcid Notes: (Same as: Pepcid ) Can be dilute in 5-10cc NS IVP: Slow IV push over at least 2 minutes. No Longer Active 11/23/2014 [facility] Dilaudid 1 mg, Route: IVP, ONC E, Dosing Weight 81.818, kg, Priority: STAT, Start date: 11/23/14 17:57:00, Stop date: 11/23/14 17:57:00 Inactive 11/23/2014 [facility] Benadryl 25 mg, Route: IVP, ON CE, Dosing Weight 81.818, kg, PRN Allergic reaction, Start date: 11/23/14 17:56:00 Inactive 11/23/2014 [facility] Reglan 10 mg, Route: IVP, ONCE , Dosing Weight 81.818, kg, Start date: 11/23/14 17:55:00, Stop date: 11/23/14 17:55:00 Inactive 11/23/2014 [facility] Clonidine Hydrochloride 0.1 MG Oral Tablet 160 No Longer Active 11/23/2014 [facility] Droperidol 0.625 mg, Route: IV P, ONCE, Dosing Weight 81.818, kg, PRN Nausea, Start date: 11/23/14 17:42:00, Stop date: 12/23/14 17:41:00 Inactive 11/23/2014 [facility] Saline Flush 0.9% Notes: (Same as: BD Posiflush) No Longer Active 11/23/2014 [facility] Morphine Notes: (Same as:MORPh ine Sulfate) No Longer Active 11/23/2014 [facility] Nitroglycerin Notes: (Same as: Nitroquick, Nitrostat) "Do Not Crush" Sublingual tablet Inactive 11/23/2014 [facility] Morphine Notes: (Same as:MORPh ine Sulfate) Inactive 11/23/2014 [facility] Clonidine Hydrochloride 0.1 MG Oral Tablet Notes: (Same As: Catapres) No Longer Active 11/23/2014 [facility] Labetalol Notes: (Same as: Yarely srivastava Trandate) Push over 2 minutes Give bolus over 2-3 minutes. No Longer Active 11/23/2014 [facility] Ativan 1 mg, Route: PO, Drug f orm: TAB, ONCE, Dosing Weight 81.818, kg, Priority: STAT, Start date: 11/23/14 14:33:00, Stop date: 11/23/14 14:33:00 Inactive 11/23/2014 [facility] Nitroglycerin Notes: (Same as: Nitroquick, Nitrostat) "Do Not Crush" Sublingual tablet Inactive 11/23/2014 [facility] Morphine 4 mg, Route: IVP, Bandar g form: INJ, ONCE, Dosing Weight 81.818, kg, Priority: STAT, Start date: 11/23/14 13:13:00, Stop date: 11/23/14 13:13:00 Inactive 11/23/2014 [facility] Saline Flush 0.9% Notes: (Same as: BD Posiflush) Inactive 11/23/2014 [facility] multivitamin with minerals Not es: (Same as:Thera-M, Theragran-M) Give with food. No Longer Active 09/19/2014 [facility] Thyroxine Notes: Take 1 hour b efore or 2 hours after meal; Enteral feeds may interefere with the absorption of this medication.(Same as:Levothroid, Synthroid) No Longer Active 09/19/2014 [facility] Aspirin 325 MG Oral Tablet 325 mg, Route: PO, Drug form: TAB, Daily, Dosing Weight 79.545, kg, Start date: 09/19/14 9:00:00, Duration: 30 day, Stop date: 10/18/14 9:00:00 No Longer Active 09/19/2014 [facility] Plavix 75 mg, Route: PO, Drug form: TAB, Daily, Dosing Weight 79.545, kg, Start date: 09/19/14 9:00:00, Duration: 30 day, Stop date: 10/18/14 9:00:00 No Longer Active 09/19/2014 [facility] potassium chloride 80 mEq, Rou te: PO, Daily, Dosing Weight 79.545, kg, Start date: 09/19/14 9:00:00, Duration: 30 day, Stop date: 10/18/14 9:00:00 No Longer Active 09/19/2014 [facility] metoprolol tartrate 50 mg, Rou te: PO, Drug form: TAB, Q12H, Dosing Weight 79.545, kg, Start date: 09/18/14 21:00:00, Duration: 30 day, Stop date: 10/18/14 9:00:00 Inactive 09/19/2014 [facility] Lipitor 80 mg, Route: PO, Drug form: TAB, Bedtime, Dosing Weight 79.545, kg, Start date: 09/18/14 21:00:00, Duration: 30 day, Stop date: 10/17/14 21:00:00 Inactive 09/19/2014 [facility] Restoril 30 mg, Route: PO, Bandar g form: CAP, Bedtime, Dosing Weight 79.545, kg, Start date: 09/18/14 21:00:00, Duration: 30 day, Stop date: 10/17/14 21:00:00 Inactive 09/19/2014 [facility] Lisinopril 20 mg, Route: PO, D rug form: TAB, BID, Dosing Weight 79.545, kg, Start date: 09/18/14 17:00:00, Duration: 30 day, Stop date: 10/18/14 9:00:00 Inactive 09/18/2014 [facility] acetaminophen-hydrocodone 325 mg-10 mg oral tablet Notes: Do not exceed 4gm/day of acetaminophen. (Same as: [place] 325/10) Inactive 09/18/2014 [facility] Hydralazine Hydrochloride 10 MG Oral Tablet Notes: (Same as: Apresoline) May interfere w/enteral feedings. Take With Food Inactive 09/18/2014 [facility] Acetaminophen 325 MG / Hydrocodone Marcio trate 10 MG Oral Tablet [[place] 10/325] Notes: Do not exceed 4gm/day of acetamin ophen. (Same as: [place] 325/10) Inactive 09/18/2014 [facility] metoprolol tartrate 50 mg oral tablet 50 mg = 1 tab, PO, Q12H, # 120 tab, 0 Refill(s) O n Hold 09/18/2014 [facility] clopidogrel 75 MG Oral Tablet [Plavix] 75 mg = 1 tab, PO, Daily, # 30 tab, 0 Refill(s) On Hold 09/18/2014 [facility] atorvastatin 80 MG Oral Tablet [Lipitor] 80 mg = 1 tab, PO, Bedtime, # 30 tab, 0 Refill(s) On Hold 09/18/2014 [facility] lisinopril 20 mg oral tablet 2 0 mg = 1 tab, PO, BID, # 60 tab, 0 Refill(s) On Hold 09/18/2014 [facility] Aspirin 325 MG Oral Tablet 325 mg, PO, Daily, # 30 tab, 0 Refill(s) On Hold 09/18/2014 [facility] Hydralazine Hydrochloride 10 MG Oral Tablet 160 mmHg, # 120 tab, 0 Refill(s) On Hold 09/18/2014 [facility] Saline Flush 0.9% Notes: (Same as: BD Posiflush) Inactive 09/18/2014 [facility] Valium Notes: (Same as: Valium) Inactive 09/18/2014 [facility] metoprolol tartrate Notes: (Sa me as: Lopressor) Inactive 09/18/2014 [facility] Lisinopril Notes: (Same as: Pr inivil, Zestril) Inactive 09/18/2014 [facility] clopidogrel 75 MG Oral Tablet [Plavix] 75 mg = 1 tab, PO, Daily Inactive 09/18/2014 [facility] lisinopril 20 mg oral tablet 2 0 mg = 1 tab, PO, BID, 0 Refill(s) Inactive 09/18/2014 [facility] Temazepam 30 MG Oral Capsule [Restoril] 30 mg = 1 cap, PO, Bedtime On Hold 09/18/2014 [facility] Diazepam 10 MG Oral Tablet [Valium] 10 mg = 1 tab, PO, TID, PRN Anxiety On Hold 09/18/2014 [facility] metoprolol tartrate 50 mg oral tablet 50 mg = 1 tab, PO, Q12H Inactive 09/18/2014 [facility] levothyroxine 200 mcg (0.2 mg) oral tablet 200 microgram = 1 tab, PO, Daily, # 30 tab On Hold 09/18/2014 [facility] Aspirin 325 mg, PO, Daily, 0 R efill(s) Inactive 09/18/2014 [facility] Centrum Adults 1 tab, PO, Olivia y, 0 Refill(s) On Hold 09/18/2014 [facility] atorvastatin 80 MG Oral Tablet [Lipitor] 80 mg = 1 tab, PO, Bedtime Inactive 09/18/2014 [facility] Acetaminophen 325 MG / Hydrocodone Marcio trate 10 MG Oral Tablet [[place] 10/325] 1-2 tab, PO, Q4-6H, PRN Pain On Hold 09/18/2014 [facility] potassium chloride 80 mEq, PO, Daily On Hold 09/18/2014 [facility] Phenergan Notes: Do not give I V push. (Same as: Phenergan) Inactive 09/18/2014 [facility] Metoprolol 5 mg, Route: IV, ON CE, Dosing Weight 79.545, kg, Start date: 09/18/14 5:09:00, Stop date: 09/18/14 5:09:00 Inactive 09/18/2014 [facility] Morphine 4 mg, Route: IVP, ONC E, Dosing Weight 79.545, kg, Start date: 09/18/14 5:08:00, Stop date: 09/18/14 5:08:00 Inactive 09/18/2014 [facility] Saline Flush 0.9% Notes: (Same as: BD Posiflush) Inactive 09/18/2014 [facility] Nitroglycerin Notes: (Same as: Nitroquick, Nitrostat) "Do Not Crush" Sublingual tablet Inactive 09/18/2014 [facility] Aspirin 325 MG Oral Tablet Not es: Take with food. Inactive 09/18/2014 [facility] Ativan 0.5 mg, Route: IVP, Bandar g form: INJ, ONCE, Dosing Weight 79.545, kg, PRN Anxiety, Start date: 09/18/14 2:14:00 Inactive 09/18/2014 [facility] Nitroglycerin 0.02 MG/MG Topical Ointment 0.5 inch, Route: TOP, Dosing Weight 79.545, kg, ONCE, Start date: 09/18/14 0:22:00, Stop date: 09/18/14 0:22:00 Inactiv e 09/18/2014 [facility] Aspirin 325 MG Oral Tablet 325 mg, Route: PO, Drug form: TAB, ONCE, Dosing Weight 79.545, kg, Priority: STAT, Start date: 09/18/14 0:10:00, Stop date: 09/18/14 0:10:00 Inactive 09/18/2014 [facility] Allergies, Adverse Reactions, Alerts Substance Category Reaction Severity Reaction type Status Date Reported Comments Source Compazine Assertion Drug allergy Active [facility] penicillins Assertion Drug allergy Active [facility] Reglan Assertion Drug allergy Active [facility] Toradol Assertion Drug allergy Active [facility] Zofran Assertion Drug allergy Active [facility] Immunizations No Data Provided for This Section Results Order Name Results Value Reference Range Date Interpretation Comments Source CARDIAC ENZYMES Total CK 63 12 - 191 04/12/2016 [facility] CARDIAC ENZYMES Troponin-I <0.02 0.00 - 0.40 04/12/2016 [facility] CARDIAC ENZYMES BNP 27 <=100 pg/mL 04/12/2016 [facility] CARDIAC ENZYMES Troponin-I <0.02 0.00 - 0.40 04/12/2016 [facility] CARDIAC ENZYMES CK MB 0.7 0.5 - 3.6 04/12/2016 [facility] CARDIAC ENZYMES Total CK 87 12 - 191 04/12/2016 [facility] CARDIAC ENZYMES CK MB Index 0.8 0.0 - 2.5 04/12/2016 [facility] CHEM PANEL Lipase Lvl 199 73 - 393 04/12/2016 [facility] CHEM PANEL eGFR 99 04/12/2016 Result Comment: The eGFR is calculated using the [...] from the National Kidney Disease Education Program (NKDEP) which additionally recommends that when the eGFR is used in patients with extremes of body mass index for purposes of drug dosing, the eGFR should be multiplied by the estimated BMI. [facility] CHEM PANEL Creatinine Lvl 0.69 0.50 - 1.40 04/12/2016 [facility] CHEM PANEL Sodium Lvl 140 135 - 145 04/12/2016 [facility] CHEM PANEL Glucose Lvl 96 70 - 99 04/12/2016 [facility] CHEM PANEL BUN 22 7 - 22 04/12/2016 [facility] CHEM PANEL Chloride Lvl 110 95 - 109 04/12/2016 [facility] CHEM PANEL Alk Phos 87 39 - 136 04/12/2016 [facility] CHEM PANEL Potassium Lvl 4.3 3.5 - 5.1 04/12/2016 [facility] CHEM PANEL AST 21 0 - 37 04/12/2016 [facility] CHEM PANEL Bili Total 0.4 0.2 - 1.3 04/12/2016 [facility] CHEM PANEL CO2 22 24 - 32 04/12/2016 [facility] CHEM PANEL Calcium Lvl 8.8 8.5 - 10.5 04/12/2016 [facility] CHEM PANEL Total Protein 6.6 6.4 - 8.4 04/12/2016 [facility] CHEM PANEL B/C Ratio 32 6 - 25 04/12/2016 [facility] CHEM PANEL AGAP 12.3 10.0 - 20.0 04/12/2016 [facility] CHEM PANEL Globulin 3.4 2.7 - 4.2 04/12/2016 [facility] CHEM PANEL A/G Ratio 0.9 0.7 - 1.6 04/12/2016 [facility] CHEM PANEL Albumin Lvl 3.2 3.5 - 5.0 04/12/2016 [facility] CHEM PANEL ALT 24 0 - 65 04/12/2016 [facility] HEMATOLOGY PT 12.1 12.0 - 14.7 04/12/2016 [facility] HEMATOLOGY INR 0.88 0.85 - 1.17 04/12/2016 [facility] HEMATOLOGY PTT 25.1 22.9 - 35.8 04/12/2016 [facility] HEMATOLOGY Platelet 299 133 - 450 04/12/2016 [facility] HEMATOLOGY MPV 8.0 7.4 - 10.4 04/12/2016 [facility] HEMATOLOGY MCHC 34.0 32.0 - 36.0 04/12/2016 [facility] HEMATOLOGY RDW 14.9 11.5 - 14.5 04/12/2016 [facility] HEMATOLOGY MCH 31.9 27.0 - 31.0 04/12/2016 [facility] HEMATOLOGY Hct 36.7 36.0 - 48.0 04/12/2016 [facility] HEMATOLOGY MCV 93.8 80.0 - 98.0 04/12/2016 [facility] HEMATOLOGY WBC 8.8 3.7 - 10.4 04/12/2016 [facility] HEMATOLOGY Hgb 12.5 12.0 - 16.0 04/12/2016 [facility] HEMATOLOGY RBC 3.92 4.20 - 5.40 04/12/2016 [facility] HEMATOLOGY Lymphocytes # 4.7 1.0 - 5.5 04/12/2016 [facility] HEMATOLOGY Monocytes # 0.6 0.0 - 0.8 04/12/2016 [facility] HEMATOLOGY Eosinophils # 0.3 0.0 - 0.5 04/12/2016 [facility] HEMATOLOGY Basophils # 0.2 0.0 - 0.2 04/12/2016 [facility] HEMATOLOGY Segs 34.8 45.0 - 75.0 04/12/2016 [facility] HEMATOLOGY Segs-Bands # 3.1 1.5 - 8.1 04/12/2016 [facility] HEMATOLOGY Monocytes 6.9 2.0 - 12.0 04/12/2016 [facility] HEMATOLOGY Basophils 1.7 0.0 - 1.0 04/12/2016 [facility] HEMATOLOGY Lymphocytes 53.2 20.0 - 40.0 04/12/2016 [facility] HEMATOLOGY Eosinophils 3.4 0.0 - 4.0 04/12/2016 [facility] DRUG SCREEN UDS Note See Note (04/12/16 12:13 AM) 04/12/2016 [facility] DRUG SCREEN U Phencyc Scr Nega tive *NA* (04/12/16 12:13 AM) Negative 04/12/2016 [facility] DRUG SCREEN U Opiate Scr Nega tive *NA* (04/12/16 12:13 AM) Negative 04/12/2016 [facility] DRUG SCREEN U Cocaine Scr Nega tive *NA* (04/12/16 12:13 AM) Negative 04/12/2016 [facility] DRUG SCREEN U Benzodia Scr Posi tive *ABN* (04/12/16 12:13 AM) Negative 04/12/2016 [facility] DRUG SCREEN U Cannab Scr Posi tive *ABN* (04/12/16 12:13 AM) Negative 04/12/2016 [facility] DRUG SCREEN U Amph Scr Nega tive *NA* (04/12/16 12:13 AM) Negative 04/12/2016 [facility] DRUG SCREEN U Nisreen Scr Nega tive *NA* (04/12/16 12:13 AM) Negative 04/12/2016 [facility] URINE AND STOOL UA Ketones Negative mg/dL Negative mg/dL 04/12/2016 [facility] URINE AND STOOL UA Color Ltyellow 04/12/2016 [facility] URINE AND STOOL UA Urobilinogen <=1.0 mg/dL 0.1 - 1.0 04/12/2016 [facility] URINE AND STOOL UA Bili Negative *NA* (04/12/16 12:13 AM) Negative 04/12/2016 [facility] URINE AND STOOL UA Nitrite Negative (04/12/16 12:13 AM) Negative 04/12/2016 [facility] URINE AND STOOL UA Blood Negative (04/12/16 12:13 AM) Negative 04/12/2016 [facility] URINE AND STOOL UA WBC 4 0 - 5 04/12/2016 [facility] URINE AND STOOL UA Sq Epi Occasional /LPF Few /LPF 04/12/2016 [facility] URINE AND STOOL UA Leuk Est Trace *ABN* (04/12/16 12:13 AM) Negative 04/12/2016 [facility] URINE AND STOOL UA RBC 2 0 - 2 04/12/2016 [facility] URINE AND STOOL UA pH 6.0 5.0 - 8.0 04/12/2016 [facility] URINE AND STOOL UA Protein Negative mg/dL Negative mg/dL 04/12/[address] [facility] [address] URINE AND STOOL UA Glucose Negative mg/dL Negative mg/dL 04/12/[address] [facility] [address] URINE AND STOOL UA Spec Grav 1.020 <=1.030 04/12/2016 [facility] URINE AND STOOL UA Turbidity Clear (04/12/16 12:13 AM) Clear 04/12/2016 [facility] CARDIAC ENZYMES Total CK 89 12 - 191 12/08/2014 [facility] CARDIAC ENZYMES Troponin-I <0.02 0.00 - 0.40 12/08/2014 [facility] CARDIAC ENZYMES CK MB Index 1.5 0.0 - 2.5 12/08/2014 [facility] CARDIAC ENZYMES CK MB 1.3 0.5 - 3.6 12/08/2014 [facility] CHEM PANEL eGFR 99 12/08/2014 Result Comment: The eGFR is calculated using the [...] from the National Kidney Disease Education Program (NKDEP) which additionally recommends that when the eGFR is used in patients with extremes of body mass index for purposes of drug dosing, the eGFR should be multiplied by the estimated BMI. [facility] CHEM PANEL BUN 12 7 - 22 12/08/2014 [facility] CHEM PANEL Creatinine Lvl 0.7 0.5 - 1.4 12/08/2014 [facility] CHEM PANEL Glucose Lvl 130 70 - 99 12/08/2014 [facility] CHEM PANEL Chloride Lvl 110 95 - 109 12/08/2014 [facility] CHEM PANEL Potassium Lvl 4.0 3.5 - 5.1 12/08/2014 [facility] CHEM PANEL CO2 21 24 - 32 12/08/2014 [facility] CHEM PANEL Sodium Lvl 140 135 - 145 12/08/2014 [facility] CHEM PANEL Calcium Lvl 8.7 8.5 - 10.5 12/08/2014 [facility] CHEM PANEL AGAP 13.0 10.0 - 20.0 12/08/2014 [facility] Platelet 316 133 - 450 12/08/2014 [facility] RDW 16.5 11.5 - 14.5 12/08/2014 [facility] MPV 7.9 7.4 - 10.4 12/08/2014 [facility] Hct 38.0 36.0 - 48.0 12/08/2014 [facility] MCV 82.9 80.0 - 98.0 12/08/2014 [facility] MCH 27.0 27.0 - 31.0 12/08/2014 [facility] MCHC 32.6 32.0 - 36.0 12/08/2014 [facility] WBC 6.0 3.7 - 10.4 12/08/2014 [facility] RBC 4.59 4.20 - 5.40 12/08/2014 [facility] Hgb 12.4 12.0 - 16.0 12/08/2014 [facility] Lymphocytes # 2.5 1.0 - 5.5 12/08/2014 [facility] Segs-Bands # 2.5 1.5 - 8.1 12/08/2014 [facility] Eosinophils # 0.3 0.0 - 0.5 12/08/2014 [facility] Monocytes # 0.6 0.0 - 0.8 12/08/2014 [facility] Basophils # 0.1 0.0 - 0.2 12/08/2014 [facility] Lymphocytes 42.1 20.0 - 40.0 12/08/2014 [facility] HEMATOLOGY Monocytes 10.5 2.0 - 12.0 12/08/2014 [facility] HEMATOLOGY Basophils 1.1 0.0 - 1.0 12/08/2014 [facility] HEMATOLOGY Eosinophils 4.2 0.0 - 4.0 12/08/2014 [facility] HEMATOLOGY Segs 42.1 45.0 - 75.0 12/08/2014 [facility] LIPIDS VLDL 31 12/08/2014 [facility] LIPIDS LDL (Calculated) 214 <=99 mg/dL 12/08/2014 [facility] LIPIDS HDL 43 >=61 mg/dL 12/08/2014 [facility] LIPIDS Chol 288 <=199 mg/dL 12/08/2014 [facility] LIPIDS Trig 153 <=149 mg/dL 12/08/2014 [facility] LIPIDS CHD Risk 6.70 3.90 - 5.80 12/08/2014 [facility] CARDIAC ENZYMES Troponin-I <0.02 0.00 - 0.40 12/08/2014 [facility] CHEM PANEL Lipase Lvl 64 73 - 393 12/08/2014 [facility] CARDIAC ENZYMES BNP 8 <=100 pg/mL 12/08/2014 [facility] CARDIAC ENZYMES Troponin-I <0.02 0.00 - 0.40 12/07/2014 [facility] CARDIAC ENZYMES CK MB Index 0.9 0.0 - 2.5 12/07/2014 [facility] CARDIAC ENZYMES CK MB 1.1 0.5 - 3.6 12/07/2014 [facility] CARDIAC ENZYMES Total CK 116 12 - 191 12/07/2014 [facility] CHEM PANEL Albumin Lvl 3.6 3.5 - 5.0 12/07/2014 [facility] CHEM PANEL eGFR 64 12/07/2014 Result Comment: The eGFR is calculated using the [...] from the National Kidney Disease Education Program (NKDEP) which additionally recommends that when the eGFR is used in patients with extremes of body mass index for purposes of drug dosing, the eGFR should be multiplied by the estimated BMI. [facility] CHEM PANEL Creatinine Lvl 1.0 0.5 - 1.4 12/07/2014 [facility] CHEM PANEL Calcium Lvl 9.4 8.5 - 10.5 12/07/2014 [facility] CHEM PANEL A/G Ratio 0.9 0.7 - 1.6 12/07/2014 [facility] CHEM PANEL Globulin 4.1 2.0 - 4.0 12/07/2014 [facility] CHEM PANEL Total Protein 7.7 6.4 - 8.4 12/07/2014 [facility] CHEM PANEL Bili Total 0.5 0.2 - 1.3 12/07/2014 [facility] CHEM PANEL Chloride Lvl 107 95 - 109 12/07/2014 [facility] CHEM PANEL Potassium Lvl 4.1 3.5 - 5.1 12/07/2014 [facility] CHEM PANEL Sodium Lvl 140 135 - 145 12/07/2014 [facility] CHEM PANEL AST 31 0 - 37 12/07/2014 [facility] CHEM PANEL ALT 55 0 - 65 12/07/2014 [facility] CHEM PANEL B/C Ratio 14 6 - 25 12/07/2014 [facility] CHEM PANEL BUN 14 7 - 22 12/07/2014 [facility] CHEM PANEL Glucose Lvl 97 70 - 99 12/07/2014 [facility] CHEM PANEL AGAP 12.1 10.0 - 20.0 12/07/2014 [facility] CHEM PANEL CO2 25 24 - 32 12/07/2014 [facility] CHEM PANEL Alk Phos 158 39 - 136 12/07/2014 [facility] HEMATOLOGY PTT 29.0 22.9 - 35.8 12/07/2014 [facility] HEMATOLOGY PT 13.5 12.0 - 14.7 12/07/2014 [facility] HEMATOLOGY INR 1.00 0.85 - 1.17 12/07/2014 [facility] HEMATOLOGY Segs-Bands # 3.1 1.5 - 8.1 12/07/2014 [facility] HEMATOLOGY Eosinophils # 0.1 0.0 - 0.5 12/07/2014 [facility] HEMATOLOGY Monocytes # 0.6 0.0 - 0.8 12/07/2014 [facility] HEMATOLOGY Lymphocytes # 2.7 1.0 - 5.5 12/07/2014 [facility] HEMATOLOGY Basophils 0.6 0.0 - 1.0 12/07/2014 [facility] HEMATOLOGY Monocytes 9.1 2.0 - 12.0 12/07/2014 [facility] HEMATOLOGY Eosinophils 2.2 0.0 - 4.0 12/07/2014 [facility] Lymphocytes 41.1 20.0 - 40.0 12/07/2014 [facility] Segs 47.0 45.0 - 75.0 12/07/2014 [facility] MPV 8.0 7.4 - 10.4 12/07/2014 [facility] MCHC 32.5 32.0 - 36.0 12/07/2014 [facility] RDW 16.5 11.5 - 14.5 12/07/2014 [facility] Platelet 330 133 - 450 12/07/2014 [facility] Hct 38.9 36.0 - 48.0 12/07/2014 [facility] MCV 82.8 80.0 - 98.0 12/07/2014 [facility] MCH 26.9 27.0 - 31.0 12/07/2014 [facility] WBC 6.6 3.7 - 10.4 12/07/2014 [facility] RBC 4.70 4.20 - 5.40 12/07/2014 [facility] Hgb 12.6 12.0 - 16.0 12/07/2014 [facility] ELECTROLYTES AGAP 13.1 10.0 - 20.0 11/30/2014 [facility] ELECTROLYTES Glucose Lvl 106 70 - 99 11/30/2014 [facility] ELECTROLYTES BUN 18 7 - 22 11/30/2014 [facility] ELECTROLYTES CO2 24 24 - 32 11/30/2014 [facility] ELECTROLYTES Chloride Lvl 107 95 - 109 11/30/2014 [facility] ELECTROLYTES Sodium Lvl 140 135 - 145 11/30/2014 [facility] ELECTROLYTES Potassium Lvl 4.1 3.5 - 5.1 11/30/2014 [facility] ELECTROLYTES eGFR 73 11/30/2014 Result Comment: The eGFR is calculated using the [...] from the National Kidney Disease Education Program (NKDEP) which additionally recommends that when the eGFR is used in patients with extremes of body mass index for purposes of drug dosing, the eGFR should be multiplied by the estimated BMI. [facility] ELECTROLYTES Creatinine Lvl 0.9 0.5 - 1.4 11/30/2014 [facility] ELECTROLYTES Calcium Lvl 8.6 8.5 - 10.5 11/30/2014 [facility] HEMATOLOGY Basophils # 0.3 0.0 - 0.2 11/30/2014 [facility] HEMATOLOGY Eosinophils # 0.4 0.0 - 0.5 11/30/2014 [facility] HEMATOLOGY Lymphocytes # 2.9 1.0 - 5.5 11/30/2014 [facility] HEMATOLOGY Monocytes # 0.6 0.0 - 0.8 11/30/2014 [facility] HEMATOLOGY Basophils 5.0 0.0 - 1.0 11/30/2014 [facility] HEMATOLOGY Segs-Bands # 2.0 1.5 - 8.1 11/30/2014 [facility] HEMATOLOGY Segs 32.0 45.0 - 75.0 11/30/2014 [facility] Lymphocytes 46.7 20.0 - 40.0 11/30/2014 [facility] Monocytes 10.2 2.0 - 12.0 11/30/2014 [facility] HEMATOLOGY Eosinophils 6.1 0.0 - 4.0 11/30/2014 [facility] MPV 8.0 7.4 - 10.4 11/30/2014 [facility] RDW 16.1 11.5 - 14.5 11/30/2014 [facility] Platelet 245 133 - 450 11/30/2014 [facility] MCH 28.3 27.0 - 31.0 11/30/2014 [facility] MCHC 33.8 32.0 - 36.0 11/30/2014 [facility] HEMATOLOGY MCV 83.7 80.0 - 98.0 11/30/2014 [facility] HEMATOLOGY Hct 33.9 36.0 - 48.0 11/30/2014 [facility] HEMATOLOGY RBC 4.05 4.20 - 5.40 11/30/2014 [facility] Hgb 11.5 12.0 - 16.0 11/30/2014 [facility] HEMATOLOGY WBC 6.1 3.7 - 10.4 11/30/2014 [facility] CHEM PANEL eGFR 73 11/28/2014 Result Comment: The eGFR is calculated using the [...] from the National Kidney Disease Education Program (NKDEP) which additionally recommends that when the eGFR is used in patients with extremes of body mass index for purposes of drug dosing, the eGFR should be multiplied by the estimated BMI. [facility] CHEM PANEL BUN 13 7 - 22 11/28/2014 [facility] CHEM PANEL CO2 26 24 - 32 11/28/2014 [facility] CHEM PANEL Creatinine Lvl 0.9 0.5 - 1.4 11/28/2014 [facility] CHEM PANEL Glucose Lvl 107 70 - 99 11/28/2014 [facility] CHEM PANEL Calcium Lvl 8.8 8.5 - 10.5 11/28/2014 [facility] CHEM PANEL Chloride Lvl 105 95 - 109 11/28/2014 [facility] CHEM PANEL Potassium Lvl 3.7 3.5 - 5.1 11/28/2014 [facility] CHEM PANEL Sodium Lvl 142 135 - 145 11/28/2014 [facility] CHEM PANEL AGAP 14.7 10.0 - 20.0 11/28/2014 [facility] CHEM PANEL Bili Indirect 0.3 0.0 - 1.0 11/28/2014 [facility] CHEM PANEL Bili Total 0.4 0.2 - 1.3 11/28/2014 [facility] CHEM PANEL Bili Direct 0.1 0.0 - 0.3 11/28/2014 [facility] CHEM PANEL AST 26 0 - 37 11/28/2014 [facility] CHEM PANEL Alk Phos 146 39 - 136 11/28/2014 [facility] CHEM PANEL Albumin Lvl 3.0 3.5 - 5.0 11/28/2014 [facility] CHEM PANEL A/G Ratio 1.0 0.7 - 1.6 11/28/2014 [facility] CHEM PANEL Total Protein 5.9 6.4 - 8.4 11/28/2014 [facility] CHEM PANEL Globulin 2.9 2.0 - 4.0 11/28/2014 [facility] CHEM PANEL ALT 49 0 - 65 11/28/2014 [facility] HEMATOLOGY MPV 7.7 7.4 - 10.4 11/28/2014 [facility] HEMATOLOGY Hct 36.5 36.0 - 48.0 11/28/2014 [facility] HEMATOLOGY Hgb 12.5 12.0 - 16.0 11/28/2014 [facility] HEMATOLOGY RBC 4.47 4.20 - 5.40 11/28/2014 [facility] HEMATOLOGY Platelet 285 133 - 450 11/28/2014 [facility] HEMATOLOGY RDW 16.0 11.5 - 14.5 11/28/2014 [facility] HEMATOLOGY MCHC 34.3 32.0 - 36.0 11/28/2014 [facility] HEMATOLOGY MCH 28.0 27.0 - 31.0 11/28/2014 [facility] HEMATOLOGY MCV 81.7 80.0 - 98.0 11/28/2014 [facility] HEMATOLOGY WBC 5.9 3.7 - 10.4 11/28/2014 [facility] HEMATOLOGY Monocytes 10.2 2.0 - 12.0 11/28/2014 [facility] HEMATOLOGY Lymphocytes 36.4 20.0 - 40.0 11/28/2014 [facility] HEMATOLOGY Segs 45.5 45.0 - 75.0 11/28/2014 [facility] HEMATOLOGY Basophils # 0.1 0.0 - 0.2 11/28/2014 [facility] HEMATOLOGY Eosinophils # 0.3 0.0 - 0.5 11/28/2014 [facility] HEMATOLOGY Monocytes # 0.6 0.0 - 0.8 11/28/2014 [facility] HEMATOLOGY Lymphocytes # 2.2 1.0 - 5.5 11/28/2014 [facility] HEMATOLOGY Segs-Bands # 2.7 1.5 - 8.1 11/28/2014 [facility] HEMATOLOGY Basophils 2.5 0.0 - 1.0 11/28/2014 [facility] HEMATOLOGY Eosinophils 5.4 0.0 - 4.0 11/28/2014 [facility] CHEM PANEL Lipase Lvl 107 73 - 393 11/25/2014 [facility] ELECTROLYTES Sodium Lvl 141 135 - 145 11/25/2014 [facility] ELECTROLYTES Potassium Lvl 3.5 3.5 - 5.1 11/25/2014 [facility] ELECTROLYTES Chloride Lvl 110 95 - 109 11/25/2014 [facility] ELECTROLYTES eGFR 84 11/25/2014 Result Comment: The eGFR is calculated using the [...] from the National Kidney Disease Education Program (NKDEP) which additionally recommends that when the eGFR is used in patients with extremes of body mass index for purposes of drug dosing, the eGFR should be multiplied by the estimated BMI. [facility] ELECTROLYTES Albumin Lvl 3.1 3.5 - 5.0 11/25/2014 [facility] ELECTROLYTES Alk Phos 182 39 - 136 11/25/2014 [facility] ELECTROLYTES Bili Total 0.5 0.2 - 1.3 11/25/2014 [facility] ELECTROLYTES ALT 95 0 - 65 11/25/2014 [facility] ELECTROLYTES AST 63 0 - 37 11/25/2014 [facility] ELECTROLYTES Glucose Lvl 89 70 - 99 11/25/2014 [facility] ELECTROLYTES BUN 9 7 - 22 11/25/2014 [facility] ELECTROLYTES Creatinine Lvl 0.8 0.5 - 1.4 11/25/2014 [facility] ELECTROLYTES Total Protein 6.6 6.4 - 8.4 11/25/2014 [facility] ELECTROLYTES CO2 21 24 - 32 11/25/2014 [facility] ELECTROLYTES Calcium Lvl 8.4 8.5 - 10.5 11/25/2014 [facility] ELECTROLYTES A/G Ratio 0.9 0.7 - 1.6 11/25/2014 [facility] ELECTROLYTES AGAP 13.5 10.0 - 20.0 11/25/2014 [facility] ELECTROLYTES B/C Ratio 11 6 - 25 11/25/2014 [facility] ELECTROLYTES Globulin 3.5 2.0 - 4.0 11/25/2014 [facility] HEMATOLOGY WBC 5.9 3.7 - 10.4 11/25/2014 [facility] HEMATOLOGY MCV 82.2 80.0 - 98.0 11/25/2014 [facility] HEMATOLOGY RBC 4.42 4.20 - 5.40 11/25/2014 [facility] HEMATOLOGY Hct 36.3 36.0 - 48.0 11/25/2014 [facility] HEMATOLOGY Hgb 12.3 12.0 - 16.0 11/25/2014 [facility] HEMATOLOGY MPV 7.9 7.4 - 10.4 11/25/2014 [facility] HEMATOLOGY MCHC 33.8 32.0 - 36.0 11/25/2014 [facility] HEMATOLOGY MCH 27.8 27.0 - 31.0 11/25/2014 [facility] HEMATOLOGY Platelet 283 133 - 450 11/25/2014 [facility] HEMATOLOGY RDW 16.0 11.5 - 14.5 11/25/2014 [facility] HEMATOLOGY Lymphocytes # 3.1 1.0 - 5.5 11/25/2014 [facility] HEMATOLOGY Segs-Bands # 1.9 1.5 - 8.1 11/25/2014 [facility] HEMATOLOGY Eosinophils # 0.3 0.0 - 0.5 11/25/2014 [facility] HEMATOLOGY Basophils # 0.1 0.0 - 0.2 11/25/2014 [facility] HEMATOLOGY Monocytes # 0.4 0.0 - 0.8 11/25/2014 [facility] HEMATOLOGY Monocytes 7.1 2.0 - 12.0 11/25/2014 [facility] HEMATOLOGY Lymphocytes 53.4 20.0 - 40.0 11/25/2014 [facility] HEMATOLOGY Basophils 2.1 0.0 - 1.0 11/25/2014 [facility] HEMATOLOGY Eosinophils 4.6 0.0 - 4.0 11/25/2014 [facility] HEMATOLOGY Segs 32.8 45.0 - 75.0 11/25/2014 [facility] CHEM PANEL Magnesium Lvl 1.9 1.8 - 2.4 11/25/2014 [facility] CHEM PANEL Amylase Lvl 50 25 - 115 11/25/2014 [facility] CHEM PANEL Lipase Lvl 111 73 - 393 11/25/2014 [facility] CHEM PANEL Globulin 3.4 2.0 - 4.0 11/25/2014 [facility] CHEM PANEL B/C Ratio 12 6 - 25 11/25/2014 [facility] CHEM PANEL A/G Ratio 0.9 0.7 - 1.6 11/25/2014 [facility] CHEM PANEL Bili Total 0.6 0.2 - 1.3 11/25/2014 [facility] CHEM PANEL ALT 111 0 - 65 11/25/2014 [facility] CHEM PANEL AST 83 0 - 37 11/25/2014 [facility] CHEM PANEL Albumin Lvl 3.2 3.5 - 5.0 11/25/2014 [facility] CHEM PANEL Alk Phos 192 39 - 136 11/25/2014 [facility] CHEM PANEL Total Protein 6.6 6.4 - 8.4 11/25/2014 [facility] URINE AND STOOL UA Urobilinogen <=1.0 mg/dL 0.1 - 1.0 2014 [facility] URINE AND STOOL UA RBC 1 0 - 2 2014 [facility] URINE AND STOOL UA Mucus Few /LPF None Seen /LPF 2014 [facility] URINE AND STOOL UA Turbidity Clear (11/23/14 11:47 PM) Clear 2014 [facility] URINE AND STOOL UA Spec Grav 1.023 <=1.030 2014 [facility] URINE AND STOOL UA Color Yellow *NA* (11/23/14 11:47 PM) Yellow 2014 [facility] URINE AND STOOL UA Bili Negative *NA* (11/23/14 11:47 PM) Negative 2014 [facility] URINE AND STOOL UA Glucose Negative mg/dL Negative mg/dL 2014 [facility] URINE AND STOOL UA Ketones Negative mg/dL Negative mg/dL [address] [facility] [address] URINE AND STOOL UA Protein Negative mg/dL Negative mg/dL 2014 [facility] URINE AND STOOL UA pH 5.0 5.0 - 8.0 2014 [facility] URINE AND STOOL UA Sq Epi Few /LPF Few /LPF 2014 [facility] URINE AND STOOL UA WBC 12 0 - 5 2014 [facility] URINE AND STOOL UA Leuk Est Trace *ABN* (11/23/14 11:47 PM) Negative 2014 [facility] URINE AND STOOL UA Blood Negative (11/23/14 11:47 PM) Negative 2014 [facility] URINE AND STOOL UA Nitrite Negative (11/23/14 11:47 PM) Negative 2014 [facility] CARDIAC ENZYMES CK MB Index 1.0 0.0 - 2.5 2014 [facility] CARDIAC ENZYMES CK MB 0.8 0.5 - 3.6 2014 [facility] CARDIAC ENZYMES Total CK 81 12 - 191 2014 [facility] CARDIAC ENZYMES Troponin-I <0.02 0.00 - 0.40 2014 [facility] CHEM PANEL Lactic Acid Lvl 1.0 0.5 - 2.2 2014 [facility] CHEM PANEL Lipase Lvl 479 73 - 393 2014 [facility] CHEM PANEL Amylase Lvl 86 25 - 115 2014 [facility] HEMATOLOGY INR 0.91 0.85 - 1.17 11/23/2014 [facility] HEMATOLOGY PT 12.2 12.0 - 14.7 11/23/2014 [facility] HEMATOLOGY PTT 29.7 22.9 - 35.8 11/23/2014 [facility] CARDIAC ENZYMES BNP 9 <=100 pg/mL 11/23/2014 [facility] CARDIAC ENZYMES Troponin-I <0.02 0.00 - 0.40 11/23/2014 [facility] CARDIAC ENZYMES Total CK 77 12 - 191 11/23/2014 [facility] CARDIAC ENZYMES CK MB 0.9 0.5 - 3.6 11/23/2014 [facility] CARDIAC ENZYMES CK MB Index 1.2 0.0 - 2.5 11/23/2014 [facility] CHEM PANEL Magnesium Lvl 1.7 1.8 - 2.4 11/23/2014 [facility] CHEM PANEL B/C Ratio 19 6 - 25 11/23/2014 [facility] CARDIAC ENZYMES Total CK 67 12 - 191 09/18/2014 [facility] CARDIAC ENZYMES Troponin-I <0.02 0.00 - 0.40 09/18/2014 [facility] CARDIAC ENZYMES Total CK 62 12 - 191 09/18/2014 [facility] CARDIAC ENZYMES Troponin-I <0.02 0.00 - 0.40 09/18/2014 [facility] LIPIDS VLDL 29 09/18/2014 [facility] LIPIDS LDL (Calculated) 140 <=99 mg/dL 09/18/2014 [facility] LIPIDS Trig 147 <=149 mg/dL 09/18/2014 [facility] LIPIDS CHD Risk 3.86 3.90 - 5.80 09/18/2014 [facility] LIPIDS Chol 228 <=199 mg/dL 09/18/2014 [facility] LIPIDS HDL 59 >=61 mg/dL 09/18/2014 [facility] CARDIAC ENZYMES Troponin-I <0.02 0.00 - 0.40 09/18/2014 [facility] CARDIAC ENZYMES Total CK 59 12 - 191 09/18/2014 [facility] CHEM PANEL eGFR 85 09/18/2014 <sup>1</sup>Result Comment: The eGFR is calculated using the CKD-EPI formula. In most young, healthy individuals the eGFR will be >90 mL/min/1.73m2. The eGFR declines with age. An eGFR of 60-89 may be normal in some populations, particularly the elderly, for whom the CKD-EPI formula has not been extensively validated. Use of the eGFR is not recommended in the following populations:& lt;br/>
Individuals with unstable creatinine concentrations, including patients and those with serious co-morbid conditions.

Patients with extremes in muscle mass or diet.

The data above are obtained from the National Kidney Disease Education Program (NKDEP) which additionally recommends that when the eGFR is used in patients with extremes of body mass index for purposes of drug dosing, the eGFR should be multiplied by the estimated BMI. [facility] CHEM PANEL Creatinine Lvl 0.8 0.5 - 1.4 09/18/2014 [facility] CHEM PANEL Potassium Lvl 3.6 3.5 - 5.1 09/18/2014 [facility] CHEM PANEL Sodium Lvl 141 135 - 145 09/18/2014 [facility] CHEM PANEL Chloride Lvl 109 95 - 109 09/18/2014 [facility] CHEM PANEL Calcium Lvl 8.6 8.5 - 10.5 09/18/2014 [facility] CHEM PANEL AST 19 0 - 37 09/18/2014 [facility] CHEM PANEL ALT 27 0 - 65 09/18/2014 [facility] CHEM PANEL CO2 25 24 - 32 09/18/2014 [facility] CHEM PANEL Albumin Lvl 3.6 3.5 - 5.0 09/18/2014 [facility] CHEM PANEL Total Protein 6.8 6.4 - 8.4 09/18/2014 [facility] CHEM PANEL Bili Total 0.3 0.2 - 1.3 09/18/2014 [facility] CHEM PANEL Alk Phos 92 39 - 136 09/18/2014 [facility] CHEM PANEL BUN 18 7 - 22 09/18/2014 [facility] CHEM PANEL Glucose Lvl 101 70 - 99 09/18/2014 <sup>2</sup>Interpretive Data: Adult ref erence range values reflect the clinical guidelines
of the [place]. [facility] CHEM PANEL Globulin 3.2 2.0 - 4.0 09/18/2014 [facility] CHEM PANEL B/C Ratio 22 6 - 25 09/18/2014 [facility] CHEM PANEL AGAP 10.6 10.0 - 20.0 09/18/2014 [facility] CHEM PANEL A/G Ratio 1.1 0.7 - 1.6 09/18/2014 [facility] PTT 28.8 22.9 - 35.8 09/18/2014 <sup>4</sup>Interpretive Data: Heparin T herapeutic Range: 57 - 92 Seconds [facility] PT 12.5 12.0 - 14.7 09/18/2014 [facility] INR 0.94 0.85 - 1.17 09/18/2014 <sup>3</sup>Interpretive Data: RECOMMEND ED RANGES FOR PROTIME INR:
2.0- 3.0 for most medical and surgical thromboembolic states.
2.5-3.5 for artificial heart valves and recurrent embolism.

INR SHOULD BE USED ONLY FOR PATIENTS ON STABLE ANTICOAGULANT THERAPY. [facility] MPV 7.4 7.4 - 10.4 09/18/2014 [facility] MCHC 34.1 32.0 - 36.0 09/18/2014 [facility] RDW 16.8 11.5 - 14.5 09/18/2014 [facility] Platelet 353 133 - 450 09/18/2014 [facility] Hgb 11.4 12.0 - 16.0 09/18/2014 [facility] MCV 83.0 80.0 - 98.0 09/18/2014 [facility] MCH 28.3 27.0 - 31.0 09/18/2014 [facility] Hct 33.4 36.0 - 48.0 09/18/2014 [facility] RBC 4.03 4.20 - 5.40 09/18/2014 [facility] WBC 7.0 3.7 - 10.4 09/18/2014 [facility] Lymphocytes # 3.7 1.0 - 5.5 09/18/2014 [facility] Monocytes # 0.6 0.0 - 0.8 09/18/2014 [facility] Eosinophils # 0.1 0.0 - 0.5 09/18/2014 [facility] Lymphocytes 52.2 20.0 - 40.0 09/18/2014 [facility] Basophils 0.2 0.0 - 1.0 09/18/2014 [facility] HEMATOLOGY Eosinophils 1.8 0.0 - 4.0 09/18/2014 [facility] HEMATOLOGY Segs-Bands # 2.6 1.5 - 8.1 09/18/2014 [facility] HEMATOLOGY Monocytes 8.1 2.0 - 12.0 09/18/2014 [facility] HEMATOLOGY Segs 37.7 45.0 - 75.0 09/18/2014 [facility] Pathology Reports No Data Provided for This Section Diagnostic Reports Report Value Date Source Cardiac SPECT multi studies NM PROCEDURE: Stress MYOCARDIAL PERFUSION SCAN with LEXISCAN INDICATION: chest pain PROTOCOL: The patient underwent rest and post stress imaging. 30>mCi of Tc-99m sestamibi was injected at rest. 30> mCi of Tc-99m sestamibi was injected at 1 minute after a 0.4mg/5ml infusion of Lexiscan. The patient's resting heart rate of 86 beats/minute increased to a peak rate of 131 beats/minute (78 % of MPHR). Blood pressure reached a maximum of 108/78 mm Hg. Other stress and monitoring data are reported separately. Gated SPECT images were obtained after stress injection. FINDINGS: Images after stress and rest show normal tracer distribution in the LV myocardium. LV and RV size appears normal. Gated images obtained at rest after stress injection show normal LV wall motion and thickening. LVEF 57%. IMPRESSION Normal perfusion study. Normal resting LV function. 04/12/2016 [facility] 1view DX Clinical Indica tion: Chest pain Comparison: 12/07/2014 FINDINGS: HEART: Cardiomediastinal silhouette unremarkable. There is evidence of median sternotomy with wires. PULMONARY VASCULATURE: The pulmonary vasculature is unremarkable. LUNGS: Lung volumes are maintained. There are no pneumothoraces noted. Costophrenic sulci: -Right costophrenic sulcus: The right costophrenic sulcus is sharp without evidence for pleural effusions or thickening. -Left costophrenic sulcus: The left costophrenic sulcus is sharp without evidence for pleural effusions or thickening. BONES: The visualized osseous structures are unremarkable. IMPRESSION: 1. Unremarkable chest x-ray. ANGELIC BELL 04/11/2016 [facility] Pulmonary Embolism CTA ADDENDUM: TECHNIQUE: Thin collimation axial images of the pulmonary arteries and routine CT chest with IV contrast. 2-D and 3-D reformatted images were performed for further evaluation. YVETTE: 12 Dictated on: 01/16/2015 7:59:50AM Interpreted by: MD Issa Joseph V Transcribed by: Beba 01/16/2015 7:59:50AM Signed by: MD Issa Joseph V 01/16/2015 8:00:01AM EXAM: CTA Pulmonary arteries and routine CT Chest. HISTORY: Chest pain. Evaluate for pulmonary embolism. COMPARISON: [None] TECHNIQUE: Thin collimation axial images of the pulmonary arteries and routine CT chest with IV contrast. CT pulmonary arteriogram: Breathing motion artifact degrades image quality. Suboptimal contrast opacification of the main pulmonary artery with Hounsfield unit of about 158. No definite acute large central pulmonary embolism seen. Small proximal pulmonary emboli cannot be completely excluded. CT chest: Postoperative median sternotomy. Mild cardiomegaly. No pericardial effusion. Mild ectasia of the ascending aorta measuring about 3.7 cm. No mediastinal or hilar mass or adenopathy. No focal consolidation, pleural effusion, or pneumothorax. Small hiatal hernia. Postoperative cholecystectomy. IMPRESSION: 1. Limited study as above. No definite C T evidence of acute large central pulmonary embolus. Small proximal pulmonary emboli cannot be completely excluded. 2. No focal consolidation, pleural effus ion, or pneumothorax. SL: 12 12/07/2014 [facility] Chest 1view DX EXAMINATION: est 1view CLINICAL HISTORY: Chest pain Since 11/23/2014, no important interval change has occurred. The hypoinflated lungs are clear of consolidation, pleural effusion, and pneumothorax. Mild bilateral basilar subsegmental atelectasis. The heart size remains at the upper limits of normal to mildly enlarged. A coronary artery stent is suspected. The thoracic aorta remains mildly tortuous. No acute fracture, dislocation, or focal osseous lesion is appreciated. SL:17 12/07/2014 [facility] Cardiac SPECT multi studies NM PROCEDURE: Stress MYOCARDIAL PERFUSION SCAN with Lexiscan INDICATION: Chest pain PROTOCOL: The patient underwent Lexiscan study using one day protocol. 0.5 mg of Lexiscan was injected over 1 minute. Please see cardiology report for EKG and physiologic response to the pharmacologic stress test. The patient received 33 mCi of 99mTc Sestamibi for the resting images, and 11 mCi of 99mTc Sestamibi for the stress images. Gated SPECT images were obtained after stress injection. FINDINGS: Images obtained after stress and rest injection of tracer show normal tracer distribution in the LV myocardium with no evidence of reversible ischemia. LV size appears normal. Gated images obtained at stress injection show normal LV wall motion and thickening. The QGS LVEF IS 65%. IMPRESSION: Normal perfusion study. Normal resting LV function. Reading Location: [facility] [place] 2014 [facility] Abdomen/Pelvis w IV contrast CT PROCEDURE: Abdomen/Pelvis w contrast CT REASON FOR EXAM: abdominal distention oral and iv gfr 85 omni 100cc kw CLINICAL INFORMATION Abdominal distention COMPARISON: None. ABDOMEN with IV contrast: Cardiomegaly, coronary calcifications. Bibasilar atelectasis or infiltrates. Post cholecystectomy. No free air. Normal aortic caliber with tortuous unfolding, no dissection. Minimal atheromatous aortic calcification. Normal liver, portal vein, spleen, adrenal glands, pancreas. No hydronephrosis. Scarring involving the right kidney. PELVIS with IV contrast: No small bowel obstruction. Surgical clips in the right lower quadrant. Underdistended bladder. No free fluid or inflammatory change of the lower pelvis. L5-S1 spondylosis. IMPRESSION: 1. Scarring in the right kidney. 2. Post cholecystectomy. 3. Cardiomegaly with coronary artery marvin cifications. 4. L5-S1 spondylosis. DLP: 1522 mGy-cm SL: 13 2014 [facility] 1view DX PORTABLE CHES T (chest 1 view) HISTORY: Chest pain A prior study 09/17/2014 was reviewed. FINDINGS: The lungs are clear. Mild prominence the cardiac silhouette is felt to be related to the portable technique and a shallow degree of inspiration is the heart size is normal on a study of 09/17/2014. There is no evidence of failure. A left coronary artery stent is noted. There is no overt failure. There are no pleural effusions. The regional skeleton is unremarkable. There are surgical clips in the right upper quadrant consistent with a prior cholecystectomy. CONCLUSION: 1. No active disease. 2. Left coronary artery stent is noted. 3. There are surgical clips in the right upper quadrant consistent with a prior cholecystectomy. Coding: Chest 1view CPT code: 28678 SL: 13 Amarjit Sanchez M.D. 11/23/2014 [facility] Chest 2 views DX EXAM: Chest 2 views HISTORY: Chest pain. COMPARISON: None. TECHNIQUE: Frontal and lateral views of the chest. FINDINGS: The lungs are well-inflated. No pneumonia, edema or pleural effusion. Heart size normal. Coronary artery stents. IMPRESSION: No acute findings in the chest. SL: 12 09/17/2014 [facility] Consultation Notes No Data Provided for This Section Discharge Summaries No Data Provided for This Section History and Physicals No Data Provided for This Section Vital Signs Vital Sign Value Date Comments Source Heart Rate 79 04/13/2016 [facility] Temperature Oral (F) 98.7 F 04/13/2016 [facility] Systolic (mm Hg) 130 04/13/2016 [facility] Diastolic (mm Hg) 82 04/13/2016 [facility] Respitory Rate 18 04/13/2016 [facility] Systolic (mm Hg) 128 04/13/2016 [facility] Diastolic (mm Hg) 86 04/13/2016 [facility] Temperature Oral (F) 98.7 F 04/13/2016 [facility] Respitory Rate 18 04/13/2016 [facility] Heart Rate 87 04/13/2016 [facility] Weight 75 0 04/13/2016 [facility] Height 177.8 cm 04/13/2016 [facility] BMI Calculated 23.72 04/13/2016 [facility] Systolic (mm Hg) 112 04/13/2016 [facility] Diastolic (mm Hg) 81 04/13/2016 [facility] Temperature Oral (F) 98.0 F 04/13/2016 [facility] Heart Rate 79 04/13/2016 [facility] Respitory Rate 18 04/13/2016 [facility] Weight 75 0 04/12/2016 [facility] BMI Calculated 23.72 04/12/2016 [facility] Height 177.8 cm 04/12/2016 [facility] Height 160.02 cm 04/12/2016 [facility] BMI Calculated 28.4 04/12/2016 [facility] Weight 72.727 04/12/2016 [facility] Weight 70.455 03/31/2016 [facility] Height 160.02 cm 03/31/2016 [facility] Systolic (mm Hg) 160 03/31/2016 [facility] Diastolic (mm Hg) 116 03/31/2016 [facility] Temperature Oral (F) 97.9 F 03/31/2016 [facility] Respitory Rate 18 03/31/2016 [facility] Heart Rate 99 03/31/2016 [facility] BMI Calculated 27.51 03/31/2016 [facility] Temperature Oral (F) 98.2 F 03/27/2016 [facility] Respitory Rate 16 03/27/2016 [facility] Heart Rate 92 03/27/2016 [facility] Systolic (mm Hg) 164 03/27/2016 [facility] Diastolic (mm Hg) 102 03/27/2016 [facility] Weight 72.727 03/27/2016 [facility] BMI Calculated 28.4 03/27/2016 [facility] Height 160.02 cm 03/27/2016 [facility] Respitory Rate 18 03/27/2016 [facility] Heart Rate 103 03/27/2016 [facility] Systolic (mm Hg) 142 03/27/2016 [facility] Diastolic (mm Hg) 103 03/27/2016 [facility] Temperature Oral (F) 98.3 F 03/27/2016 [facility] Respitory Rate 20 12/08/2014 [facility] Systolic (mm Hg) 139 12/08/2014 [facility] Diastolic (mm Hg) 89 12/08/2014 [facility] Weight 81.818 12/08/2014 [facility] Systolic (mm Hg) 121 12/08/2014 [facility] Diastolic (mm Hg) 84 12/08/2014 [facility] Respitory Rate 20 12/08/2014 [facility] Temperature Oral (F) 97.4 F 12/08/2014 [facility] Heart Rate 84 12/08/2014 [facility] Height 160.02 cm 12/08/2014 [facility] Weight 81.818 12/08/2014 [facility] BMI Calculated 31.95 12/08/2014 [facility] Temperature Oral (F) 97.5 F 12/08/2014 [facility] Heart Rate 95 12/08/2014 [facility] Systolic (mm Hg) 159 12/08/2014 [facility] Diastolic (mm Hg) 96 12/08/2014 [facility] Respitory Rate 20 12/08/2014 [facility] Temperature Oral (F) 97.7 F 12/08/2014 [facility] Weight 77.273 12/07/2014 [facility] BMI Calculated 30.18 12/07/2014 [facility] Height 160.02 cm 12/07/2014 [facility] Heart Rate 130 12/07/2014 [facility] Temperature Oral (F) 97.9 F 12/01/2014 [facility] Respitory Rate 15 12/01/2014 [facility] Systolic (mm Hg) 114 12/01/2014 [facility] Diastolic (mm Hg) 73 12/01/2014 [facility] Heart Rate 70 12/01/2014 [facility] Systolic (mm Hg) 121 12/01/2014 [facility] Diastolic (mm Hg) 84 12/01/2014 [facility] Respitory Rate 16 12/01/2014 [facility] Systolic (mm Hg) 155 12/01/2014 [facility] Diastolic (mm Hg) 101 12/01/2014 [facility] Heart Rate 81 12/01/2014 [facility] Temperature Oral (F) 98.1 F 12/01/2014 [facility] Respitory Rate 18 12/01/2014 [facility] Temperature Oral (F) 97.5 F 12/01/2014 [facility] Heart Rate 81 12/01/2014 [facility] Weight 81.818 11/26/2014 [facility] Height 160.02 cm 11/23/2014 [facility] Weight 81.818 11/23/2014 [facility] BMI Calculated 31.95 11/23/2014 [facility] Heart Rate 76 09/18/2014 [facility] Systolic (mm Hg) 120 09/18/2014 [facility] Diastolic (mm Hg) 77 09/18/2014 [facility] Temperature Oral (F) 97.9 F 09/18/2014 [facility] Respitory Rate 16 09/18/2014 [facility] Weight 79.545 09/18/2014 [facility] Height 160.02 cm 09/18/2014 [facility] BMI Calculated 31.06 09/18/2014 [facility] Heart Rate 91 09/18/2014 [facility] Respitory Rate 14 09/18/2014 [facility] Systolic (mm Hg) 166 09/18/2014 [facility] Diastolic (mm Hg) 116 09/18/2014 [facility] Temperature Oral (F) 98.3 F 09/18/2014 [facility] Temperature Oral (F) 98.0 F 09/18/2014 [facility] Systolic (mm Hg) 153 09/18/2014 [facility] Diastolic (mm Hg) 99 09/18/2014 [facility] Heart Rate 90 09/18/2014 [facility] Respitory Rate 18 09/18/2014 [facility] Height 160.02 cm 09/18/2014 [facility] BMI Calculated 31.06 09/18/2014 [facility] Weight 79.545 09/18/2014 [facility] Encounters Location Location Details Encounter Type Encounter Number Reason For Visit Attending Provider ADM Date DC Date Status Source [facility] OBS Observation Patient [id number] Ruddy Amato 09/17/2014 09/18/2014 [facility] [id number] Chevy Callaway 11/23/2014 12/01/2014 [facility] OBS Observation Patient [id number] Liliana Lyles 12/07/2014 12/08/2014 [facility] Emergency [id number] Lokesh Aguilera 03/27/2016 03/27/2016 [facility] [id number] Rosa Lam 03/31/2016 03/31/2016 [facility] Observation [id number] Jenna Ceja 04/12/2016 04/13/2016 [facility] Procedures Procedure Code Date Perfomer Comments Source Hysterectomy [id number] [facility] st Procedure on back [id number] [facility] Thyroidectomy [id number] [facility] st CABG x 1 - Coronary artery bypass graft x 1<sup>1</sup > [id number] may 2015 [facility] Stent placement [id number] [facility] Cholecystectomy [id number] [facility] Assessment and Plan Assessment and Plan Date Source Extracted from:Title: Clinical Document Author: Gaurav Russo MD Date: 04/13/16 Progress Note Cardiology [facility] Impression: Atypical chest pain. Severe coronary artery disease status post multiple PCIs, followed by bypass surgery 10 months ago. Hyperlipidemia. Marijuana use. Recurrent nausea and vomiting. Plan: nuclear stress test today. cont present medications if nuclear stress test is normal, she can go home from a cardiology standpoint please call with questions Subjective: Patient seen and examined. no cp or sob. no palpitations Objective: Telemetry Vitals Tmp(F) Pulse BP RR SpO2 FIO2 04/13 07:37 98.0 79 112/81 1 8 98 --- 04/13 06:42 ---- 86 119/81 - - --- --- 04/13 04:39 ---- --- 102/71 -- --- --- 04/13 04:18 97.7 81 94/63 18 95 --- 04/12 23:18 97.8 85 112/74 1 8 94 --- 24 Hr Tmax: 98.3F (36.83c) at 04/12 16:1 9 Vital Signs are the last 5 in the past 48 hours. General: Awake and alert, NAD HEENT: Neck supple, No JVD CVS: Regular rate, normal S1S2 LUNGS: CTA, no rales or wheezing ABD: Soft, non-tender, +BS EXT: No edema, 2+ pedal pulses Skin: No ulcers Neuro: Awake and alert, Oriented x3 Labs (Last four charted values) WBC 8.8 (APR 12) Hgb 12.5 (APR 12) Hct 36.7 (APR 12) Plt 299 (APR 12) Na 140 (APR 12) K 4.3 (APR 12) CO2 L 22 (APR 12) Cl H 110 (APR 12) Cr 0.69 (APR 12) BUN 22 (APR 12) Glucose Random 96 (APR 12) Ca 8.8 (APR 12) PT 12.1 (APR 12) INR 0.88 (APR 12) PTT 25.1 (APR 12) Troponin <0.02 (APR 12) <0.02 (APR 12) CK MB 0.7 (APR 12) Total CK 63 (APR 12) 87 (APR 12) Scheduled Meds (11): 04/12/16 amLODIPine (Norvasc) 10 mg PO D aily 04/12/16 aspirin (aspirin 325 mg tablet) 325 mg PO Daily 04/12/16 atorvastatin 80 mg PO Bedtime 04/12/16 clopidogrel (Plavix) 75 mg PO D aily 04/12/16 heparin 5,000 unit SUB-Q Q8H 04/12/16 levothyroxine 200 microgram PO Q630AM 04/12/16 lisinopril 20 mg PO BID 04/12/16 metoprolol (metoprolol tartrate ) 50 mg PO BID 04/12/16 pantoprazole 40 mg PO Before Di nner 04/12/16 sodium chloride (Saline Flush 0 .9%) 10 ml IVP Q12H 04/12/16 sucralfate (Carafate 1 g/10 mL oral suspension) 1 gm PO QID-Before Meals Continuous Infusions: None 04/13/2016 [facility] Plan of [facility] No Data Provided for This Section Social History Social History Date Source Social History TypeResponse Substance Abuse Use: Current. Type: Marijuana. Recreational Drug Route: Oral. Frequency: 1-2 times per month. Previous Treatment: None. IV drug use: No. Drug use interferes with work/home: No. Ready to change: No. Household substance abuse concerns: No. Cessation Education Provided: Yes. Alcohol Never Smoking Status Former smoker; Type: Cigarettes; Previous treatment: None; Ready to change: Yes; Concerns about tobacco use in household: No; Exposure to Tobacco Smoke None; Other Tobacco Frequency 3 cigarettes a day; Cigarette Smoking Last 365 Days No; Reg Smoking Cessation Counseling Yes1 1pt states she was "stress smoking" and will stop now that has a job. 2014 [facility] Family History No Data Provided for This Section Advance Directives No Data Provided for This Section Functional Status No Data Provided for This Section
--- OUTSIDE RECORDS SUMMARY | 2019-08-31 11:01 | XMS REPORT | Summary of Care ---
Author Author [facility] Organization [facility] Address Unknown Phone Unavailable Encounter ANDREINA Yoder(YOUNG) [id number] Date(s): 04/11/16 - 04/13/16 [facility] [address] [place] [address]- Discharge Disposition: Home or Self Care Attending Physician: Jenna Ceja MD Admitting Physician: Jenna Ceja MD Vital Signs 1 2 3 Most recent to oldest [Reference Range]: 177.8 cm (04/13/16 8:56 AM) 177.8 cm (04/12/16 3:59 AM) 160.02 cm (04/11/16 9:37 PM) Height 98.7 DegF (04/13/16 2:51 PM) 98.7 DegF (04/13/16 10:42 AM) 98.0 DegF (04/13/16 7:37 AM) Temperature Oral [96.4-99.1 DegF] 130/82 mmHg (04/13/16 2:51 PM) 128/86 mmHg (04/13/16 10:42 AM) 112/81 mmHg (04/13/16 7:37 AM) Blood Pressure [90-140/60-90 mmHg] 18 BRMIN (04/13/16 2:51 PM) 18 BRMIN (04/13/16 10:42 AM) 18 BRMIN (04/13/16 7:37 AM) Respiratory Rate [14-20 BRMIN] 79 bpm (04/13/16 2:51 PM) 87 bpm (04/13/16 10:42 AM) 79 bpm (04/13/16 7:37 AM) Peripheral Pulse Rate [60-100 bpm] 75 kg (04/13/16 8:56 AM) 75 kg (04/12/16 3:59 AM) 72.727 kg (04/11/16 9:37 PM) Weight 23.72 m2 (04/13/16 8:56 AM) 23.72 m2 (04/12/16 3:59 AM) 28.4 m2 (04/11/16 9:37 PM) Body Mass Index Problem List Condition Effective Dates Status Health Status Informan t 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 Start Date: 04/12/16 Stop Date: 04/13/16 Status: Discontinued Ativan 0.5 mg, Route: IVP, Drug form: INJ, ONCE, Dosing Weight 72.727, kg, Priority: ST AT, Start date: 04/12/16 1:56:00 EMPLOYMENT SECURITY OFFICER, Stop date: 04/12/16 1:56:00 EMPLOYMENT SECURITY OFFICER Start Date: 04/12/16 Stop Date: 04/12/16 Status: Completed Ativan 1 mg, 0.5 mL, Route: IVP, Drug form: INJ, Q4H, Dosing Weight 75, kg, PRN Anxiety , Start date: 04/12/16 4:15:00 EMPLOYMENT SECURITY OFFICER, Duration: 30 day, Stop date: 05/12/16 4:14:0 0 EMPLOYMENT SECURITY OFFICER Notes: (Same as: Ativan) Start Date: 04/12/16 Stop Date: 04/13/16 Status: Discontinued atorvastatin 80 mg, 2 tab, Route: PO, Drug form: TAB, Bedtime, Dosing Weight 75, kg, Priority : NOW, Start date: 04/12/16 11:21:00 EMPLOYMENT SECURITY OFFICER, Duration: 30 day, Stop date: 05/11/16 21:00:00 EMPLOYMENT SECURITY OFFICER Notes: (Same as: Lipitor) Start Date: 04/12/16 Stop Date: 04/13/16 Status: Discontinued atorvastatin 40 mg oral tablet 80 mg = 2 tab, PO, Bedtime, # 60 tab, 0 Refill(s) Start Date: 04/13/16 Status: Ordered Carafate 1 g/10 mL oral suspension 1 gm, 1 tab, Route: PO, Drug form: TAB, QID-Before Meals, Dosing Weight 75, kg, Start date: 04/12/16 7:30:00 EMPLOYMENT SECURITY OFFICER, Duration: 30 day, Stop date: 05/11/16 21:00:00 EMPLOYMENT SECURITY OFFICER Notes: May interfere w/enteral feeds - Take 1 hr before or 2 hr after antacids, dairy pdt, meals & minerals - On empty stomach.For patients unable to swallow tablet, dissolve in 10mL - 30mL of water or juice and stir before giving. (Same As: Carafate) Start Date: 04/12/16 Stop Date: 04/13/16 Status: Discontinued cloNIDine 0.1 mg oral tablet 0.1 mg, 1 tab, Route: PO, Drug form: TAB, TID, Dosing Weight 75, kg, PRN Hyperte nsion, Start date: 04/12/16 4:40:00 EMPLOYMENT SECURITY OFFICER, Duration: 30 day, Stop date: 05/12/16 4 :39:00 EMPLOYMENT SECURITY OFFICER Notes: (Same As: Catapres) Start Date: 04/12/16 Stop Date: 04/13/16 Status: Discontinued famotidine 20 mg, 2 mL, Route: IVP, Drug form: INJ, ONCE, Dosing Weight 72.727, kg, Priorit y: STAT, Start date: 04/11/16 21:47:00 EMPLOYMENT SECURITY OFFICER, Stop date: 04/11/16 21:47:00 EMPLOYMENT SECURITY OFFICER Notes: (Same as: Pepcid)Can be dilute in 5-10cc NS IVP: Slow IV push over at le ast 2 minutes. Start Date: 04/11/16 Stop Date: 04/12/16 Status: Completed heparin 5,000 unit, 1 mL, Route: SUB-Q, Drug form: INJ, Q8H, Dosing Weight 75, kg, Start date: 04/12/16 8:00:00 EMPLOYMENT SECURITY OFFICER, Duration: 30 day, Stop date: 05/12/16 0:00:00 EMPLOYMENT SECURITY OFFICER Notes: porcine heparin Start Date: 04/12/16 Stop Date: 04/13/16 Status: Discontinued levothyroxine 200 microgram, 1 tab, Route: PO, Drug form: TAB, Q630AM, Dosing Weight 75, kg, S tart date: 04/12/16 6:30:00 EMPLOYMENT SECURITY OFFICER, Duration: 30 day, Stop date: 05/11/16 6:30:[address] Notes: Take 1 hour before or 2 hours after meal; Enteral feeds may interefere wi th the absorption of this medication. (Same as: Levothroid) Start Date: 04/12/16 Stop Date: 04/13/16 Status: Discontinued lisinopril 20 mg, 1 tab, Route: PO, Drug form: TAB, BID, Dosing Weight 75, kg, Start date: 04/12/16 9:00:00 EMPLOYMENT SECURITY OFFICER, Duration: 30 day, Stop date: 05/11/16 17:00:00 EMPLOYMENT SECURITY OFFICER Notes: (Same as: Prinivil, Zestril) Start Date: 04/12/16 Stop Date: 04/13/16 Status: Discontinued metoprolol tartrate 50 mg, 1 tab, Route: PO, Drug form: ERTAB, BID, Dosing Weight 75, kg, Start date : 04/12/16 9:00:00 EMPLOYMENT SECURITY OFFICER, Duration: 30 day, Stop date: 05/11/16 17:00:00 EMPLOYMENT SECURITY OFFICER Notes: (Same as: Toprol XL) May split tab, but do not crush. Start Date: 04/12/16 Stop Date: 04/13/16 Status: Discontinued morphine Sulfate 2 mg, 0.5 mL, Route: IVP, Drug form: SOLN, Q6H, Dosing Weight 75, kg, PRN Chest Pain, Start date: 04/12/16 12:11:00 EMPLOYMENT SECURITY OFFICER, Duration: 30 day, Stop date: 05/12/16 1 2:10:00 EMPLOYMENT SECURITY OFFICER Notes: (Same as:MORPhine Sulfate) Start Date: 04/12/16 Stop Date: 04/12/16 Status: Discontinued morphine Sulfate 2 mg, 1 mL, Route: IVP, Drug form: INJ, Q6H, Dosing Weight 72.727, kg, PRN Chest Pain, Start date: 04/12/16 3:31:00 EMPLOYMENT SECURITY OFFICER, Duration: 2 doses or times, Stop date: Limited # of times Notes: (Same as:MORPhine Sulfate) Start Date: 04/12/16 Stop Date: 04/12/16 Status: Discontinued morphine Sulfate 2 mg, 1 mL, Route: IVP, Drug form: INJ, ONCE, Dosing Weight 72.727, kg, Priority : STAT, Start date: 04/11/16 22:34:00 EMPLOYMENT SECURITY OFFICER, Stop date: 04/11/16 22:34:00 EMPLOYMENT SECURITY OFFICER Notes: (Same as:MORPhine Sulfate) Start Date: 04/11/16 Stop Date: 04/12/16 Status: Completed morphine Sulfate 2 mg, 1 mL, Route: IVP, Drug form: INJ, Q4H, Dosing Weight 75, kg, PRN Chest Bertram n, Start date: 04/12/16 17:07:00 EMPLOYMENT SECURITY OFFICER, Duration: 30 day, Stop date: 05/12/16 17:0 6:00 EMPLOYMENT SECURITY OFFICER Notes: (Same as:MORPhine Sulfate) Start Date: 04/12/16 Stop Date: 04/13/16 Status: Discontinued morphine Sulfate 2 mg, 1 mL, Route: IVP, Drug form: INJ, Q3H, Dosing Weight 72.727, kg, PRN Chest Pain, Start date: 04/12/16 4:14:00 EMPLOYMENT SECURITY OFFICER, Duration: 2 doses or times, Stop date: Limited # of times Notes: (Same as:MORPhine Sulfate) Start Date: 04/12/16 Stop Date: 04/12/16 Status: Completed nitroglycerin 0.4 mg, 1 tab, Route: SL, Drug form: TAB, ONCE, Dosing Weight 72.727, kg, Priori ty: STAT, Start date: 04/11/16 22:31:00 EMPLOYMENT SECURITY OFFICER, Stop date: 04/11/16 22:31:00 EMPLOYMENT SECURITY OFFICER Notes: (Same as:Nitroquick, Nitrostat)"Do Not Crush" Sublingual tablet Start Date: 04/11/16 Stop Date: 04/12/16 Status: Completed nitroglycerin SL Tab 0.4 mg, 1 tab, Route: SL, Drug form: TAB, Q5Min, Dosing Weight 72.727, kg, PRN C hest Pain, Start date: 04/12/16 3:31:00 EMPLOYMENT SECURITY OFFICER, Duration: 3 doses or times, Stop da te: Limited # of times Notes: (Same as:Nitroquick, Nitrostat)"Do Not Crush" Sublingual tablet Start Date: 04/12/16 Stop Date: 04/13/16 Status: Discontinued [place] 5/325 oral tablet 1 tab, Route: PO, Drug Form: TAB, Dosing Weight 75, kg, Q4H, PRN Pain Score 1-3, Start date: 04/12/16 4:39:00 EMPLOYMENT SECURITY OFFICER, Duration: 30 day, Stop date: 05/12/16 4:38:00 EMPLOYMENT SECURITY OFFICER Notes: (Same as: [place] 325/5) Do not exceed 4gm/day of acetaminophen. Start Date: 04/12/16 Stop Date: 04/13/16 Status: Discontinued Norvasc 10 mg, 2 tab, Route: PO, Drug form: TAB, Daily, Dosing Weight 75, kg, Start date : 04/12/16 9:00:00 EMPLOYMENT SECURITY OFFICER, Duration: 30 day, Stop date: 05/11/16 9:00:00 EMPLOYMENT SECURITY OFFICER Notes: (Same as: Norvasc) Start Date: 04/12/16 Stop Date: 04/13/16 Status: Discontinued Norvasc 10 mg oral tablet See Instructions, 1 tab PO Daily, 0 Refill(s) Start Date: 04/12/16 Status: Ordered pantoprazole 40 mg, 1 tab, Route: PO, Drug form: ECTAB, Before Dinner, Dosing Weight 75, kg, Start date: 04/12/16 16:30:00 EMPLOYMENT SECURITY OFFICER, Duration: 30 day, Stop date: 05/11/16 16:30:0 0 EMPLOYMENT SECURITY OFFICER Notes: Tablet should not be chewed or crushed.(Same as: Protonix) Start Date: 04/12/16 Stop Date: 04/13/16 Status: Discontinued Plavix 75 mg, 1 tab, Route: PO, Drug form: TAB, Daily, Dosing Weight 75, kg, Start date : 04/12/16 9:00:00 EMPLOYMENT SECURITY OFFICER, Duration: 30 day, Stop date: 05/11/16 9:00:00 EMPLOYMENT SECURITY OFFICER Notes: (Same As: Plavix) Start Date: 04/12/16 Stop Date: 04/13/16 Status: Discontinued Saline Flush 0.9% 10 mL, Route: IVP, Drug Form: INJ, Dosing Weight 72.727, kg, PRN, PRN Line Flush , Start date: 04/11/16 21:47:00 EMPLOYMENT SECURITY OFFICER, Duration: 30 day, Stop date: 05/11/16 21:46 :00 EMPLOYMENT SECURITY OFFICER Notes: Same as: BD Posiflush Sterile Start Date: 04/11/16 Stop Date: 04/12/16 Status: Discontinued Saline Flush 0.9% 10 ml, Route: IVP, Drug Form: INJ, Dosing Weight 72.727, kg, Q12H, Start date: 0 04/12/16 9:00:00 EMPLOYMENT SECURITY OFFICER, Duration: 30 day, Stop date: 05/11/16 21:00:00 EMPLOYMENT SECURITY OFFICER Notes: (Same as: BD Posiflush) Start Date: 04/12/16 Stop Date: 04/13/16 Status: Discontinued Saline Flush 0.9% 10 ml, Route: IVP, Drug Form: INJ, Dosing Weight 72.727, kg, PRN, PRN Line Flush , Start date: 04/12/16 3:31:00 EMPLOYMENT SECURITY OFFICER, Duration: 30 day, Stop date: 05/12/16 3:30:0 0 EMPLOYMENT SECURITY OFFICER Notes: (Same as: BD Posiflush) Start Date: 04/12/16 Stop Date: 04/13/16 Status: Discontinued tramadol 100 mg oral tablet, extended release 100 mg = 1 tab, PO, Q4H, 0 Refill(s) Start Date: 04/12/16 Status: Ordered Tylenol 650 mg, 20.3 mL, Route: PO, Drug form: LIQ, ONCE, Dosing Weight 75, kg, Start da te: 04/13/16 15:09:00 EMPLOYMENT SECURITY OFFICER, Stop date: 04/13/16 15:09:00 EMPLOYMENT SECURITY OFFICER Notes: Max acetaminophen = 4000mg/day (4 gm/day). (Same as: Tylenol) Start Date: 04/13/16 Stop Date: 04/13/16 Status: Ordered Tylenol with Codeine #3 oral tablet 1 - 2 tab, PO, Q4H, PRN Pain, X 2 day, # 20 tab, 0 Refill(s) Start Date: 04/13/16 Stop Date: 04/15/16 Status: Completed Results ELECTROLYTES Most recent to 1 2 oldest [Reference Range]: Sodium Lvl [135-145 140 mEq/L mEq/L] (04/12/16 12:58 AM) Potassium Lvl 4.3 mEq/L [3.5-5.1 mEq/L] (04/12/16 12:58 AM) Chloride Lvl [95-109 110 mEq/L mEq/L] *HI* (04/12/16 12:58 AM) CO2 [24-32 mEq/L] 22 mEq/L *LOW* (04/12/16 12:58 AM) AGAP [10.0-20.0 12.3 mEq/L mEq/L] (04/12/16 12:58 AM) CHEM PANEL Most recent to 1 2 oldest [Reference Range]: Creatinine Lvl 0.69 mg/dL [0.50-1.40 mg/dL] (04/12/16 12:58 AM) eGFR 99 mL/min/1.73m2 1 *NA* (04/12/16 12:58 AM) BUN [7-22 mg/dL] 22 mg/dL (04/12/16 12:58 AM) B/C Ratio [6-25] 32 *HI* (04/12/16 12:58 AM) Glucose Lvl [70-99 96 mg/dL mg/dL] (04/12/16 12:58 AM) Total Protein 6.6 g/dL [6.4-8.4 g/dL] (04/12/16 12:58 AM) Albumin Lvl [3.5-5.0 3.2 g/dL g/dL] *LOW* (04/12/16 12:58 AM) Globulin [2.7-4.2 3.4 g/dL g/dL] (04/12/16 12:58 AM) A/G Ratio [0.7-1.6] 0.9 (04/12/16 12:58 AM) Calcium Lvl 8.8 mg/dL [8.5-10.5 mg/dL] (04/12/16 12:58 AM) ALT [0-65 unit/L] 24 unit/L (04/12/16 12:58 AM) AST [0-37 unit/L] 21 unit/L (04/12/16 12:58 AM) Alk Phos [39-136 87 unit/L unit/L] (04/12/16 12:58 AM) Bili Total [0.2-1.3 0.4 mg/dL mg/dL] (04/12/16 12:58 AM) Lipase Lvl [73-393 199 unit/L unit/L] (04/12/16 12:58 AM) 1Result Comment: The eGFR is calculated using [...] tiplied by the estimated BMI. CARDIAC ENZYMES Most recent to 1 2 oldest [Reference Range]: Total CK [12-191 63 unit/L 87 unit/L unit/L] (04/12/16 11:27 AM) (04/12/16 12:58 AM) CK MB [0.5-3.6 0.7 ng/mL ng/mL] (04/12/16 12:58 AM) CK MB Index 0.8 [0.0-2.5] (04/12/16 12:58 AM) Troponin-I <0.02 ng/mL <0.02 ng/mL [0.00-0.40 ng/mL] (04/12/16 11:27 AM) (04/12/16 12:58 AM) BNP [<=100 pg/mL] 27 pg/mL (04/12/16 12:58 AM) DRUG SCREEN Most recent to 1 2 oldest [Reference Range]: U Amph Scr Negative [Negative] *NA* (04/12/16 12:13 AM) U Nisreen Scr Negative [Negative] *NA* (04/12/16 12:13 AM) U Benzodia Scr Positive [Negative] *ABN* (04/12/16 12:13 AM) U Cocaine Scr Negative [Negative] *NA* (04/12/16 12:13 AM) U Opiate Scr Negative [Negative] *NA* (04/12/16 12:13 AM) U Phencyc Scr Negative [Negative] *NA* (04/12/16 12:13 AM) U Cannab Scr Positive [Negative] *ABN* (04/12/16 12:13 AM) UDS Note See Note (04/12/16 12:13 AM) URINE AND STOOL Most recent to 1 2 oldest [Reference Range]: UA Turbidity [Clear] Clear (04/12/16 12:13 AM) UA Color Ltyellow *NA* (04/12/16 12:13 AM) UA pH [5.0-8.0] 6.0 (04/12/16 12:13 AM) UA Spec Grav 1.020 [<=1.030] (04/12/16 12:13 AM) UA Glucose [Negative Negative mg/dL mg/dL] *NA* (04/12/16 12:13 AM) UA Blood [Negative] Negative (04/12/16 12:13 AM) UA Ketones [Negative Negative mg/dL mg/dL] *NA* (04/12/16 12:13 AM) UA Protein [Negative Negative mg/dL mg/dL] (04/12/16 12:13 AM) UA Urobilinogen <=1.0 mg/dL [0.1-1.0 mg/dL] *NA* (04/12/16 12:13 AM) UA Bili [Negative] Negative *NA* (04/12/16 12:13 AM) UA Leuk Est Trace [Negative] *ABN* (04/12/16 12:13 AM) UA Nitrite Negative [Negative] (04/12/16 12:13 AM) UA WBC [0-5 /HPF] 4 /HPF (04/12/16 12:13 AM) UA RBC [0-2 /HPF] 2 /HPF (04/12/16 12:13 AM) UA Sq Epi [Few /LPF] Occasional /LPF *NA* (04/12/16 12:13 AM) HEMATOLOGY Most recent to 1 2 oldest [Reference Range]: WBC [3.7-10.4 K/CMM] 8.8 K/CMM (04/12/16 12:35 AM) RBC [4.20-5.40 3.92 M/CMM M/CMM] *LOW* (04/12/16 12:35 AM) Hgb [12.0-16.0 g/dL] 12.5 g/dL (04/12/16 12:35 AM) Hct [36.0-48.0 %] 36.7 % (04/12/16 12:35 AM) MCV [80.0-98.0 fL] 93.8 fL (04/12/16 12:35 AM) MCH [27.0-31.0 pg] 31.9 pg *HI* (04/12/16 12:35 AM) MCHC [32.0-36.0 34.0 g/dL g/dL] (04/12/16 12:35 AM) RDW [11.5-14.5 %] 14.9 % *HI* (04/12/16 12:35 AM) Platelet [133-450 299 K/CMM K/CMM] (04/12/16 12:35 AM) MPV [7.4-10.4 fL] 8.0 fL (04/12/16 12:35 AM) Segs [45.0-75.0 %] 34.8 % *LOW* (04/12/16 12:35 AM) Lymphocytes 53.2 % [20.0-40.0 %] *HI* (04/12/16 12:35 AM) Monocytes [2.0-12.0 6.9 % %] (04/12/16 12:35 AM) Eosinophils [0.0-4.0 3.4 % %] (04/12/16 12:35 AM) Basophils [0.0-1.0 1.7 % %] *HI* (04/12/16 12:35 AM) Segs-Bands # 3.1 K/CMM [1.5-8.1 K/CMM] (04/12/16 12:35 AM) Lymphocytes # 4.7 K/CMM [1.0-5.5 K/CMM] (04/12/16 12:35 AM) Monocytes # [0.0-0.8 0.6 K/CMM K/CMM] (04/12/16 12:35 AM) Eosinophils # 0.3 K/CMM [0.0-0.5 K/CMM] (04/12/16 12:35 AM) Basophils # [0.0-0.2 0.2 K/CMM K/CMM] (04/12/16 12:35 AM) PT [12.0-14.7 12.1 seconds seconds] (04/12/16 12:58 AM) INR [0.85-1.17] 0.88 (04/12/16 12:58 AM) PTT [22.9-35.8 25.1 seconds seconds] (04/12/16 12:58 AM) Immunizations No data available for this section Procedures Procedure Date Related Diagnosis Body Site CABG x 1 - Coronary artery bypass graft x 11 Cholecystectomy Hysterectomy Procedure on back Stent placement Thyroidectomy 1feb 2016 Social History Social History Type Response Substance [...] that has a job. Assessment and Plan Extracted from: Title: Clinical Document Author: Gaurav Russo MD Date: Progress Note Cardiology [facility] Impression: Atypical chest pain. Severe [...] cp or sob. no palpitations Objective: Telemetry VitalsTmp(F)[id number] 04/13 07:[id number]--- 04/13 06:42----92518/81-------- 04/13 04:39-------102/71-------- 04/13 04:[id number]--- 04/12 23:[id number]--- 24 Hr Tmax: 98.3F (36.83c) at 04/12 16:1 9Vital Signs are the last 5 in the past 48 hours. General: Awake and alert, NAD HEENT: Neck supple, No JVD CVS: Regular rate, normal S1S2 LUNGS: CTA, no rales or wheezing ABD: Soft, non-tender, +BS EXT: No edema, 2+ pedal pulses Skin: No ulcers Neuro: Awake and alert, Oriented x3 Labs (Last four charted values) WBC 8.8(APR 12) Hgb 12.5(APR 12) Hct 36.7(APR 12) Plt 299(APR 12) Na 140(APR 12) K 4.3(APR 12) CO2 L 22(APR 12) Cl H 110(APR 12) Cr 0.69(APR 12) BUN 22(APR 12) Glucose Random 96(APR 12) Ca 8.8(APR 12) PT 12.1(APR 12) INR 0.88(APR 12) PTT 25.1(APR 12) Troponin <0.02(APR 12)<0.02(APR 12) CK MB 0.7(APR 12) Total CK 63(APR 12)87(APR 12) Scheduled Meds (11): 04/12/16 amLODIPine (Norvasc) [...]
--- OUTSIDE RECORDS SUMMARY | 2019-08-31 11:01 | XMS REPORT | Summary of Care ---
Author Author [facility] Organization [facility] Address Unknown Phone Unavailable Encounter ANDREINA Yoder(YOUNG) [id number] Date(s): 03/27/16 - 03/27/16 [facility] [address] [place] [address]- Discharge Diagnosis: Dental caries, unspecified Discharge Diagnosis: Other specified disorders of teeth and supporting structure s Discharge Diagnosis: Periapical abscess without sinus Discharge Disposition: Home or Self Care Attending Physician: Lokesh Aguilera MD Vital Signs Most recent to 1 2 oldest [Reference Range]: Height 160.02 cm (03/27/16 10:04 AM) Temperature Oral 98.2 DegF 98.3 DegF [96.4-99.1 DegF] (03/27/16 11:24 AM) (03/27/16 10:04 AM ) Blood Pressure 164/102 mmHg 142/103 mmHg [90-140/60-90 mmHg] *HI* *HI* (03/27/16 11:24 AM) (03/27/16 10:04 AM) Respiratory Rate 16 BRMIN 18 BRMIN [14-20 BRMIN] (03/27/16 11:24 AM) (03/27/16 10:04 AM ) Peripheral Pulse 92 bpm 103 bpm Rate [60-100 bpm] (03/27/16 11:24 AM) *HI* (03/27/16 10:04 AM) Weight 72.727 kg (03/27/16 10:04 AM) Body Mass Index 28.4 m2 (03/27/16 10:04 AM) Problem List Condition Effective Dates Status Health Status Informan t 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 Congestive heart Active failure (CHF)(Confirmed) Hypertension(Confirm Active ed) Myocardial Resolved infarction(Confirmed )2 1from a ffall 10 months ago 23 Allergies, Adverse Reactions, Alerts Substance Reaction Severity Status Compazine Active penicillins Active Reglan Active Toradol Active Zofran Active Medications Cleocin HCl 300 mg oral capsule 300 mg = 1 cap, PO, QID, X 10 day, # 40 cap, 0 Refill(s) Start Date: 03/27/16 Stop Date: 04/06/16 Status: Ordered clindamycin 600 mg, 4 mL, Route: IM, Drug form: INJ, ONCE, Dosing Weight 72.727, kg, Priorit y: STAT, Start date: 03/27/16 10:25:00 [employer]ALER [employer] CELL, Stop date: 03/27/16 10:25:00 [employer]ALER [employer] CE[employer] Notes: (clindamycin 150 mg/1 ml (600 mg/4 ml VL) INJ) (Same As: Cleocin) Start Date: 03/27/16 Stop Date: 03/27/16 Status: Completed Dilaudid 0.5 mg, 0.5 mL, Route: IM, Drug form: INJ, ONCE, Dosing Weight 72.727, kg, Prior ity: STAT, Start date: 03/27/16 10:29:00 SEALER [employer] CELL, Stop date: 03/27/16 10:29:00 SEALER [employer]Y CELL Start Date: 03/27/16 Stop Date: 03/27/16 Status: Completed [place] 10/325 oral tablet 1 tab, Route: PO, Drug Form: TAB, Dosing Weight 72.727, kg, ONCE, STAT, Start da te: 03/27/16 10:26:00 SEALER DRY CELL, Stop date: 03/27/16 10:26:00 SEALER DRY CELL Start Date: 03/27/16 Stop Date: 03/27/16 Status: Discontinued Tylenol with Codeine #3 oral tablet 1 - 2 tab, PO, Q4H, PRN Pain, X 3 day, # 20 tab, 0 Refill(s) Start Date: 03/27/16 Stop Date: 03/30/16 Status: Ordered Results No data available for this section Immunizations No data available for this section Procedures Procedure Date Related Diagnosis Body Site CABG x 1 - Coronary artery bypass graft x 11 Hysterectomy Procedure on back Stent placement Thyroidectomy 1feb 2015 Social History Social History Type Response Substance [...]
--- OUTSIDE RECORDS SUMMARY | 2019-08-31 11:01 | XMS REPORT | Summary of Care ---
Author Author [facility] Organization [facility] Address Unknown Phone Unavailable Encounter ANDREINA Yoder(YOUNG) [id number] Date(s): 03/31/16 - 03/31/16 [facility] [address] [place] [address]- Discharge Disposition: Left Without Being Seen Attending Physician: Rosa Lam DO Vital Signs Most recent to 1 oldest [Reference Range]: Height 160.02 cm (03/31/16 10:29 AM) Temperature Oral 97.9 DegF [96.4-99.1 DegF] (03/31/16 10:29 AM) Blood Pressure 160/116 mmHg [90-140/60-90 mmHg] *HI* (03/31/16 10:29 AM) Respiratory Rate 18 BRMIN [14-20 BRMIN] (03/31/16 10:29 AM) Peripheral Pulse 99 bpm Rate [60-100 bpm] (03/31/16 10:29 AM) Weight 70.455 kg (03/31/16 10:29 AM) Body Mass Index 27.51 m2 (03/31/16 10:29 AM) Problem List Condition Effective Dates Status Health Status Informan t 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
--- OUTSIDE RECORDS SUMMARY | 2019-08-31 11:01 | XMS REPORT | Summary of Care ---
Author Organization Unknown Address Unknown Phone Unavailable Encounter [facility](YOU[facility]) [id number] Date(s): 09/17/14 - 09/18/14 [facility] [address] [place] [address]- Discharge Disposition: Home Physician Attending: Ruddy Amato MD Physician Admitting: Ruddy Amato MD Vital Signs 1 2 3 Most recent to oldest [Reference Range]: 160.02 cm (09/18/14 8:04 AM) 160.02 cm (09/17/14 7:22 PM) Height 97.9 DegF (09/18/14 12:03 PM) 98.3 DegF (09/18/14 7:49 AM) 98.0 DegF (09/18/14 5:00 AM) Temperature Oral [96.4-99.1 DegF] 120/77 mmHg (09/18/14 12:03 PM) 166/116 mmHg *HI* (09/18/14 7:49 AM) 153/99 mmHg *HI* (09/18/14 5:00 AM) Blood Pressure [90-140/60-90 mmHg] 16 BRMIN (09/18/14 12:03 PM) 14 BRMIN (09/18/14 7:49 AM) 18 BRMIN (09/18/14 5:00 AM) Respiratory Rate [14-20 BRMIN] 76 bpm (09/18/14 12:03 PM) 91 bpm (09/18/14 7:49 AM) 90 bpm (09/18/14 5:00 AM) Peripheral Pulse Rate [60-100 bpm] 79.545 kg (09/18/14 8:04 AM) 79.545 kg (09/17/14 7:22 PM) Weight 31.06 m2 (09/18/14 8:04 AM) 31.06 m2 (09/17/14 7:22 PM) Body Mass Index Problem List Condition Effective Dates Status Health Status Informan t Congestive heart Active failure (CHF)(Confirmed) Hypertension(Confirm Active ed) Myocardial Resolved infarction(Confirmed )1 13 Allergies, Adverse Reactions, Alerts Substance Reaction Severity Status Compazine Active penicillins Active Reglan Active Toradol Active Zofran Active Medications acetaminophen-hydrocodone 325 mg-10 mg oral tablet 2 tab, Route: PO, Drug Form: TAB, Q6H, PRN Pain Score 6-10, Start date: 09/18/14 12:26:00, Duration: 30 day, Stop date: 10/18/14 12:25:00 Notes: Do not exceed 4gm/day of acetaminophen. (Same as: [place] 325/10) Start Date: 09/18/14 Stop Date: 09/18/14 Status: Discontinued aspirin 325 mg, PO, Daily, 0 Refill(s) Start Date: 09/18/14 Stop Date: 09/18/14 Status: Discontinued aspirin 325 mg tablet 325 mg, Route: PO, Drug form: TAB, ONCE, Dosing Weight 79.545, kg, Priority: STA T, Start date: 09/18/14 0:10:00, Stop date: 09/18/14 0:10:00 Start Date: 09/18/14 Stop Date: 09/18/14 Status: Completed aspirin 325 mg tablet 325 mg, PO, Daily, # 30 tab, 0 Refill(s) Start Date: 09/18/14 Status: Suspended aspirin 325 mg tablet 325 mg, 1 tab, Route: PO, Drug form: TAB, ONCE, Dosing Weight 79.545, kg, Start date: 09/18/14 3:20:00, Stop date: 09/18/14 3:20:00 Notes: Take with food. Start Date: 09/18/14 Stop Date: 09/18/14 Status: Completed aspirin 325 mg tablet 325 mg, Route: PO, Drug form: TAB, Daily, Dosing Weight 79.545, kg, Start date: 09/19/14 9:00:00, Duration: 30 day, Stop date: 10/18/14 9:00:00 Start Date: 09/19/14 Stop Date: 09/18/14 Status: Canceled Ativan 0.5 mg, Route: IVP, Drug form: INJ, ONCE, Dosing Weight 79.545, kg, PRN Anxiety, Start date: 09/18/14 2:14:00 Start Date: 09/18/14 Stop Date: 09/18/14 Status: Completed Centrum Adults 1 tab, PO, Daily, 0 Refill(s) Start Date: 09/18/14 Status: Suspended hydrALAZINE 10 mg oral tablet 10 mg, 1 tab, Route: PO, Drug form: TAB, Q6H, Dosing Weight 79.545, kg, PRN See Nurse's Notes, Start date: 09/18/14 12:19:00, Duration: 30 day, Stop date: 10/18 12:18:00, SBP>160 Notes: (Same as: Apresoline) May interfere w/enteral feedings.Take With Food Start Date: 09/18/14 Stop Date: 09/18/14 Status: Discontinued hydrALAZINE 10 mg oral tablet 10 mg = 1 tab, PO, Q6H, PRN SBP>160 mmHg, # 120 tab, 0 Refill(s) Start Date: 09/18/14 Status: Suspended levothyroxine 200 microgram, 4 tab, Route: PO, Drug form: TAB, Daily, Dosing Weight 79.545, kg , Start date: 09/19/14 9:00:00, Duration: 30 day, Stop date: 10/18/14 9:00:00 Notes: Take 1 hour before or 2 hours after meal; Enteral feeds may interefere wi th the absorption of this medication.(Same as:Levothroid, Synthroid) Start Date: 09/19/14 Stop Date: 09/18/14 Status: Canceled levothyroxine 200 mcg (0.2 mg) oral tablet 200 microgram = 1 tab, PO, Daily, # 30 tab Start Date: 09/18/14 Status: Suspended Lipitor 80 mg, Route: PO, Drug form: TAB, Bedtime, Dosing Weight 79.545, kg, Start date: 09/18/14 21:00:00, Duration: 30 day, Stop date: 10/17/14 21:00:00 Start Date: 09/18/14 Stop Date: 09/18/14 Status: Canceled Lipitor 80 mg oral tablet 80 mg = 1 tab, PO, Bedtime, # 30 tab, 0 Refill(s) Start Date: 09/18/14 Status: Suspended Lipitor 80 mg oral tablet 80 mg = 1 tab, PO, Bedtime Start Date: 09/18/14 Stop Date: 09/18/14 Status: Discontinued lisinopril 20 mg, Route: PO, Drug form: TAB, BID, Dosing Weight 79.545, kg, Start date: 17:00:00, Duration: 30 day, Stop date: 10/18/14 9:00:00 Start Date: 09/18/14 Stop Date: 09/18/14 Status: Discontinued lisinopril 20 mg, 1 tab, Route: PO, Drug form: TAB, BID, Dosing Weight 79.545, kg, Priority : STAT, Start date: 09/18/14 7:54:00, Duration: 30 day, Stop date: 10/17/14 17:0 0:00 Notes: (Same as: ivpillo Zestril) Start Date: 09/18/14 Stop Date: 09/18/14 Status: Discontinued lisinopril 20 mg oral tablet 20 mg = 1 tab, PO, BID, 0 Refill(s) Start Date: 09/18/14 Stop Date: 09/18/14 Status: Discontinued lisinopril 20 mg oral tablet 20 mg = 1 tab, PO, BID, # 60 tab, 0 Refill(s) Start Date: 09/18/14 Status: Suspended metoprolol 5 mg/5 ml INJ 5 mg, Route: IV, ONCE, Dosing Weight 79.545, kg, Start date: 09/18/14 5:09:00, S top date: 09/18/14 5:09:00 Start Date: 09/18/14 Stop Date: 09/18/14 Status: Completed metoprolol tartrate 50 mg, Route: PO, Drug form: TAB, Q12H, Dosing Weight 79.545, kg, Start date: 21:00:00, Duration: 30 day, Stop date: 10/18/14 9:00:00 Start Date: 09/18/14 Stop Date: 09/18/14 Status: Discontinued metoprolol tartrate 50 mg, 1 tab, Route: PO, Drug form: TAB, Q12H, Dosing Weight 79.545, kg, Priorit y: STAT, Start date: 09/18/14 7:54:00, Duration: 30 day, Stop date: 10/17/14 21: 00:00 Notes: (Same as: Lopressor) Start Date: 09/18/14 Stop Date: 09/18/14 Status: Discontinued metoprolol tartrate 50 mg oral tablet 50 mg = 1 tab, PO, Q12H, # 120 tab, 0 Refill(s) Start Date: 09/18/14 Status: Suspended metoprolol tartrate 50 mg oral tablet 50 mg = 1 tab, PO, Q12H Start Date: 09/18/14 Stop Date: 09/18/14 Status: Discontinued morphine Sulfate 4 mg, Route: IVP, ONCE, Dosing Weight 79.545, kg, Start date: 09/18/14 5:08:00, Stop date: 09/18/14 5:08:00 Start Date: 09/18/14 Stop Date: 09/18/14 Status: Completed multivitamin with minerals 1 tab, Route: PO, Drug Form: TAB, Dosing Weight 79.545, kg, Daily, Start date: 0 09/19/14 9:00:00, Duration: 30 day, Stop date: 10/18/14 9:00:00 Notes: (Same as:Thera-M, Theragran-M) Give with food. Start Date: 09/19/14 Stop Date: 09/18/14 Status: Canceled nitroglycerin 2% topical ointment 0.5 inch, Route: TOP, Dosing Weight 79.545, kg, ONCE, Start date: 09/18/14 0:22: 00, Stop date: 09/18/14 0:22:00 Start Date: 09/18/14 Stop Date: 09/18/14 Status: Completed nitroglycerin SL Tab 0.4 mg, 1 tab, Route: SL, Drug form: TAB, Q5Min, Dosing Weight 79.545, kg, PRN C hest Pain, Start date: 09/18/14 3:20:00, Duration: 3 doses or times, Stop date: Limited # of times Notes: (Same as:Nitroquick, Nitrostat)"Do Not Crush" Sublingual tablet Start Date: 09/18/14 Stop Date: 09/18/14 Status: Discontinued [place] 10/325 oral tablet 1 tab, Route: PO, Drug Form: TAB, Dosing Weight 79.545, kg, Q6H, PRN Pain Score 4-6, Start date: 09/18/14 12:17:00, Duration: 30 day, Stop date: 10/18/14 12:16: 00 Notes: Do not exceed 4gm/day of acetaminophen. (Same as: [place] 325/10) Start Date: 09/18/14 Stop Date: 09/18/14 Status: Discontinued [place] 10/325 oral tablet 1-2 tab, PO, Q4-6H, PRN Pain Start Date: 09/18/14 Status: Suspended Phenergan + Sodium Chloride 0.9% IV 50 mL 12.5 mg, 0.5 mL, Route: IVPB, ONCE, Dosing Weight 79.545, kg, PRN Nausea & Vomiting, Start date: 09/18/14 6:35:00, Stop date: 10/18/14 6:34:00 Notes: Do not give IV push. (Same as: Phenergan) Start Date: 09/18/14 Stop Date: 09/18/14 Status: Completed Plavix 75 mg, Route: PO, Drug form: TAB, Daily, Dosing Weight 79.545, kg, Start date: 0 09/19/14 9:00:00, Duration: 30 day, Stop date: 10/18/14 9:00:00 Start Date: 09/19/14 Stop Date: 09/18/14 Status: Canceled Plavix 75 mg oral tablet 75 mg = 1 tab, PO, Daily Start Date: 09/18/14 Stop Date: 09/18/14 Status: Discontinued Plavix 75 mg oral tablet 75 mg = 1 tab, PO, Daily, # 30 tab, 0 Refill(s) Start Date: 09/18/14 Status: Suspended potassium chloride 80 mEq, PO, Daily Start Date: 09/18/14 Status: Suspended potassium chloride 80 mEq, Route: PO, Daily, Dosing Weight 79.545, kg, Start date: 09/19/14 9:00:00 , Duration: 30 day, Stop date: 10/18/14 9:00:00 Start Date: 09/19/14 Stop Date: 09/18/14 Status: Canceled Restoril 30 mg, Route: PO, Drug form: CAP, Bedtime, Dosing Weight 79.545, kg, Start date: 09/18/14 21:00:00, Duration: 30 day, Stop date: 10/17/14 21:00:00 Start Date: 09/18/14 Stop Date: 09/18/14 Status: Canceled Restoril 30 mg oral capsule 30 mg = 1 cap, PO, Bedtime Start Date: 09/18/14 Status: Suspended Saline Flush 0.9% 10 ml, Route: IVP, Drug Form: INJ, Dosing Weight 79.545, kg, PRN, PRN Line Flush , Start date: 09/18/14 3:20:00, Duration: 30 day, Stop date: 10/18/14 3:19:00 Notes: (Same as: BD Posiflush) Start Date: 09/18/14 Stop Date: 09/18/14 Status: Discontinued Saline Flush 0.9% 10 ml, Route: IVP, Drug Form: INJ, Dosing Weight 79.545, kg, Q12H, Start date: 0 09/18/14 9:00:00, Duration: 30 day, Stop date: 10/17/14 21:00:00 Notes: (Same as: BD Posiflush) Start Date: 09/18/14 Stop Date: 09/18/14 Status: Discontinued Valium 10 mg, 2 tab, Route: PO, Drug form: TAB, TID, Dosing Weight 79.545, kg, PRN as n eeded for anxiety, Priority: STAT, Start date: 09/18/14 7:54:00, Duration: 30 da y, Stop date: 10/18/14 7:53:00 Notes: (Same as: Valium) Start Date: 09/18/14 Stop Date: 09/18/14 Status: Discontinued Valium 10 mg oral tablet 10 mg = 1 tab, PO, TID, PRN Anxiety Start Date: 09/18/14 Status: Suspended Results ELECTROLYTES 1 2 3 Most recent to oldest [Reference Range]: 141 mEq/L (09/17/14 11:21 PM) Sodium Lvl [135-145 mEq/L] 3.6 mEq/L (09/17/14 PM) Potassium Lvl [3.5-5.1 mEq/L] 109 mEq/L (09/17/14 PM) Chloride Lvl [95-109 mEq/L] 25 mEq/L (09/17/14 PM) CO2 [24-32 mEq/L] 10.6 mEq/L (09/17/14 PM) AGAP [10.0-20.0 mEq/L] CHEM PANEL 1 2 3 Most recent to oldest [Reference Range]: 0.8 mg/dL (09/17/14 PM) Creatinine Lvl [0.5-1.4 mg/dL] 85 mL/min/1.73m2 1 *NA* (09/17/14 PM) eGFR 18 mg/dL (09/17/14 PM) BUN [7-22 mg/dL] 22 (09/17/14 PM) B/C Ratio [6-25] 101 mg/dL 2 *HI* (09/17/14 PM) Glucose Lvl [70-99 mg/dL] 6.8 g/dL (09/17/14 PM) Total Protein [6.4-8.4 g/dL] 3.6 g/dL (09/17/14 PM) Albumin Lvl [3.5-5.0 g/dL] 3.2 g/dL (09/17/14 PM) Globulin [2.0-4.0 g/dL] 1.1 (09/17/14 PM) A/G Ratio [0.7-1.6] 8.6 mg/dL (09/17/14 PM) Calcium Lvl [8.5-10.5 mg/dL] 27 unit/L (09/17/14 PM) ALT [0-65 unit/L] 19 unit/L (09/17/14 PM) AST [0-37 unit/L] 92 unit/L (09/17/14 PM) Alk Phos [39-136 unit/L] 0.3 mg/dL (09/17/14 PM) Bili Total [0.2-1.3 mg/dL] 1Result Comment: The eGFR is calculated using [...] be mul tiplied by the estimated BMI. 2Interpretive Data: Adult reference range values reflect the clinical guidelines of the [place] [employer]. CARDIAC ENZYMES 1 2 3 Most recent to oldest [Reference Range]: 67 unit/L (09/18/14 10:02 AM) 62 unit/L (09/18/14 5:33 AM) 59 unit/L (09/17/14 11:21 PM) Total CK [12-191 unit/L] <0.02 ng/mL (09/18/14 10:02 AM) <0.02 ng/mL (09/18/14 5:33 AM) <0.02 ng/mL (09/17/14 11:21 PM) Troponin-I [0.00-0.40 ng/mL] LIPIDS 1 2 3 Most recent to oldest [Reference Range]: 3.86 *LOW* (09/18/14 5:33 AM) CHD Risk [3.90-5.80] 228 mg/dL *HI* (09/18/14 5:33 AM) Chol [<=199 mg/dL] 147 mg/dL (09/18/14 5:33 AM) Trig [<=149 mg/dL] 59 mg/dL *LOW* (09/18/14 5:33 AM) HDL [>=61 mg/dL] 140 mg/dL *HI* (09/18/14 5:33 AM) LDL (Calculated) [<=99 mg/dL] 29 *NA* (09/18/14 5:33 AM) VLDL HEMATOLOGY 1 2 3 Most recent to oldest [Reference Range]: 7.0 K/CMM (09/17/14 11:21 PM) WBC [3.7-10.4 K/CMM] 4.03 M/CMM *LOW* (09/17/14:21 PM) RBC [4.20-5.40 M/CMM] 11.4 g/dL *LOW* (09/17/14:21 PM) Hgb [12.0-16.0 g/dL] 33.4 % *LOW* (09/17/14 11:21 PM) Hct [36.0-48.0 %] 83.0 fL (09/17/14:21 PM) MCV [80.0-98.0 fL] 28.3 pg (09/17/14:21 PM) MCH [27.0-31.0 pg] 34.1 g/dL (09/17/14:21 PM) MCHC [32.0-36.0 g/dL] 16.8 % *HI* (09/17/14 11:21 PM) RDW [11.5-14.5 %] 353 K/CMM (09/17/14 11:21 PM) Platelet [133-450 K/CMM] 7.4 fL (09/17/14 11:21 PM) MPV [7.4-10.4 fL] 37.7 % *LOW* (09/17/14 11:21 PM) Segs [45.0-75.0 %] 52.2 % *HI* (09/17/14 11:21 PM) Lymphocytes [20.0-40.0 %] 8.1 % (09/17/14 11:21 PM) Monocytes [2.0-12.0 %] 1.8 % (09/17/14 11:21 PM) Eosinophils [0.0-4.0 %] 0.2 % (09/17/14 11:21 PM) Basophils [0.0-1.0 %] 2.6 K/CMM (09/17/14 11:21 PM) Segs-Bands # [1.5-8.1 K/CMM] 3.7 K/CMM (09/17/14 11:21 PM) Lymphocytes # [1.0-5.5 K/CMM] 0.6 K/CMM (09/17/14 11:21 PM) Monocytes # [0.0-0.8 K/CMM] 0.1 K/CMM (09/17/14 11:21 PM) Eosinophils # [0.0-0.5 K/CMM] 12.5 seconds (09/17/14 11:21 PM) PT [12.0-14.7 seconds] 0.94 3 (09/17/14 11:21 PM) INR [0.85-1.17] 28.8 seconds 4 (09/17/14 11:21 PM) PTT [22.9-35.8 seconds] 3Interpretive Data: RECOMMENDED RANGES FOR PROTIME INR: 2.0-3.0 for most medical and surgical thromboembolic states. 2.5-3.5 for artificial heart valves and recurrent embolism. INR SHOULD BE USED ONLY FOR PATIENTS ON STABLE ANTICOAGULANT THERAPY. 4Interpretive Data: Heparin Therapeutic Range: 57 - 92 Seconds Immunizations No data available for this section Procedures Procedure Date Related Diagnosis Body Site Hysterectomy Procedure on back Thyroidectomy Social History Social History Type Response Alcohol Never Smoking Status Never smoker; Exposure to T obacco Smoke None; Cigarette Smoking Last 365 Days No; Reg Smoking Cessation Counseli ng No Assessment and Plan No data available for this section
--- OUTSIDE RECORDS SUMMARY | 2019-08-31 11:02 | XMS REPORT ---
Author Author [facility] t Organization [facility] Address 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 Name Role Phone WHITLEY WHEELERLUCA Attphys Unavailable Mougouris, Taso Attphys Rosa Lam Attphys Enrique Aguilera Attphys Rafal, Dc Adnan Attphys Cesia, Blake Chevy Attphys Al-Azzeh, Sandoval Haytham Attphys DOLLY GALINDO Admphys Unavailable Mougouris, Taso Admphys Rafal, Dc Adnan Admphys Cesia, Blake Chevy Admphys Al-Azzeh, Sandoval Haytham Admphys Problems Condition Name Condition Details Condition Category Status Onset Date Resolution Date Last Treatment Date Treating Clinician Comments Source MOUTH PAIN MOUT H PAIN Active 03/27/2016 [facility] Active 2016-03-27 00:00:00 2016-03-27 10:51:00 [facility] ACUTE CHEST PAIN. GASTRP ARESOS ACUTE CHEST PAIN. GASTRP ARESOS Active 04/11/2015 [facility] Active 2015-04-11 16:00: 00 2016-04-12 02:19:00 [facility] ACUTE CHEST PAIN GASTRPARESIS ACUTE CHEST PAIN GASTRPARESIS Active 04/11/2015 [facility] Active 04-11 16:00:00 2016-04-16 15:47:00 [facility] CHEST PAIN CHES T PAIN Active 12/07/2014 [facility] Diagnosis Active 2014-12-07 00:00:00 2016-08-13 10:57:00 [facility] ACUTE CHEST PAIN, RULE OUT ACS ACUTE CHEST PAIN, RULE OUT ACS Active 11/23/2014 [facility] Active 2014-11-23 00:00 :00 2016-05-08 18:50:00 [facility] Congestive heart failure (disorder) Congestive heart failure (disorder) Active Problem 04/16/2016 [facility] Active 2016-04-16 03:18:48 [facility] Hypertensive disorder, systemic arterial (disorder) Hypertensive disorder, systemic arterial (disorder) Active Problem 04/16/2016 [facility] Active 2016-04-16 03:18:48 [facility] Myocardial infarction (disorder) Myocardial infarction (disorder) Resolved Problem 04/16/2016 3 [facility] Problem Resolved 2016-04-16 03:18:48 [facility] 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) Brain injury wit hout open intracranial wound AND with no loss of consciousness (disorder) Resolved Problem 04/16/2016 from a ffall 10 months ago [facility] Problem Resolved 2016 03:18:48 [facility] CHEST PAIN NOS CHES T PAIN NOS Active [facility] Diagnosis Active 2016-05-08 18:50:00 [facility] CHEST PAIN, UNSPECIFIED CHES T PAIN, UNSPECIFIED Active [facility] Diagnosis Active 2016-04-16 15:47:00 [facility] GASTROPARESIS SLIME ROPARESIS Active [facility] Diagnosis Active 2016-04-16 15:47:00 [facility] Discharge Diagnosis: Dental caries, unspecified Discharge Diagnosis: Dental caries, unspecified 03/27/2016 03/30/2016 [facility] 2016-03-27 06:00:00 2016-03-30 04:00:14 2016-03 04:00:14 [facility] Discharge Diagnosis: Other specified dis orders of teeth and supporting structures Discharge Diagno sis: Other specified disorders of teeth and supporting structures 03/27/2016 03/30/2016 [facility] 2016-03-27 06:00:00 2016-03-30 04:00:14 2016-03-30 04:00:14 [facility] Discharge Diagnosis: Periapical abscess without sinus Discharge Diagnosis: Periapical abscess without sinus 03/27/2016 03/30/2016 [facility] 2016-03-27 06:00:00 2016-03-30 04:00:14 2016-03 04:00:14 [facility] Allergies, Adverse Reactions, Alerts Allergy Name Allergy Type Status Severity Reaction(s) Onset Date Inacti ve Date Treating Clinician Comments Source Compazine Compazine Active [facility] penicillins penicillins Active [facility] Reglan Reglan Active [facility] Toradol Toradol Active [facility] Zofran Zofran Active [facility] Social History Social Habit Start Date Stop Date Quantity Comments Source Social History 2014 05:40:48 2014 05:40:48 [facility] Medications Ordered Medication Name Filled Medication Name Start Date Stop Da te Current Medication? Ordering Clinician Indication Dosage Frequency Signature (SIG) Comments Components Source Tylenol 2016-04-13 21:09:00 Yes Notes: Max acetaminophen = 4000mg/day (4 gm/day). (Same as: Tylenol) [facility] Acetaminophen 300 MG / Codeine Phosphate 30 MG Oral Tablet [Tylenol with Codeine #3] 2016-04-13 21:06:00 No 1 - 2 tab, PO, Q4H, PRN Pain, X 2 day, # 20 tab, 0 Refill(s) [facility] atorvastatin 40 mg oral tablet 2016-04-13 21:06:00 Yes 80 mg = 2 tab, PO, Bedtime, # 60 tab, 0 Refill(s) [facility] Morphine 2016-04-12 23:07:00 No Not es: (Same as:MORPhine Sulfate) [facility] pantoprazole 2016-04-12 22:30:00 No Notes: Tablet should not be chewed or crushed. (Same as: Protonix) [facility] Morphine 2016-04-12 18:11:00 No Not es: (Same as:MORPhine Sulfate) [facility] atorvastatin 2016-04-12 17:21:00 No Notes: (Same as: Lipitor) [facility] metoprolol tartrate 2016-04-12 15:00:00 No Notes: (Same as: Toprol XL) May split tab, but do not crush. [facility] Lisinopril 2016-04-12 15:00:00 No Notes: (Same as: Prinivil, Zestril) [facility] Plavix 2016-04-12 15:00:00 No Notes: (Same As: Plavix) [facility] Norvasc 2016-04-12 15:00:00 No Notes: (Same as: Norvasc) [facility] Saline Flush 0.9% 2016-04-12 15:00:00 No Notes: (Same as: BD Posiflush) [facility] heparin 2016-04-12 14:00:00 No Notes: porci ne heparin [facility] Sucralfate 100 MG/ML Oral Suspension [Carafate] 2016-04-12 13:30 :00 No Notes: May interfere w/enter al feeds - Take 1 hr before or 2 hr after antacids, dairy pdt, meals & minerals - On empty stomach. For patients unable to swallow tablet, dissolve in 10mL - 30mL of water or juice and stir before giving. (Same As: [facility]afate) [facility] 2016-04-12 12:30:00 No Notes: Take 1 hour before or 2 hours after meal; Enteral feeds may interefere with the absorption of this medication. (Same as: Levothroid) [facility] Aspirin 325 MG Oral Tablet 2016-04-12 12:00:00 No Notes: Take with food. [facility] Clonidine Hydrochloride 0.1 MG Oral Tablet 2016-04-12 10:40:00 No Notes: (Same As: Catapres) [facility] Acetaminophen 325 MG / Hydrocodone Bitartrate 5 MG Oral Tabl et [Calhoun 5/325] 2016-04-12 10:39:00 No Notes: (Same as: Calhoun 325/5) Do not exceed 4gm/day of acetaminophen. [facility] Ativan 2016-04-12 10:15:00 No Notes: (Same as: Ativan) [facility] Morphine 2016-04-12 10:14:00 No Not es: (Same as:MORPhine Sulfate) [facility] 24 HR tramadol hydrochloride 100 MG Extended Release Tablet 2016-04-12 10:04:00 Yes 100 mg = 1 tab, PO, Q4H, 0 Re fill(s) [facility] Amlodipine 10 MG Oral Tablet [Norvasc] 2016-04-12 10:04:00 Yes See Instructions, 1 tab PO Daily, 0 Refill(s) [facility] Saline Flush 0.9% 2016-04-12 09:31:00 No Notes: (Same as: BD Posiflush) [facility] Morphine 2016-04-12 09:31:00 No Not es: (Same as:MORPhine Sulfate) [facility] Nitroglycerin 2016-04-12 09:31:00 No Notes: (Same as:Nitroquick, Nitrostat) "Do Not Crush" Sublingual tablet [facility] Ativan 2016-04-12 07:56:00 No 0.5 mg, Route: IVP, Drug form: INJ, ONCE, Dosing Weight 72.727, kg, Priority: STAT, Start date: 04/12/16 1:56:00 LABEL REWINDER, Stop date: 04/12/16 1:56:00 LABEL REWINDER [facility] Morphine 2016-04-12 04:34:00 No Not es: (Same as:MORPhine Sulfate) [facility] Nitroglycerin 2016-04-12 04:31:00 No Notes: (Same as:Nitroquick, Nitrostat) "Do Not Crush" Sublingual tablet [facility] Famotidine 2016-04-12 03:47:00 No Notes: (Same as: Pepcid) Can be dilute in 5-10cc NS IVP: Slow IV push over at least 2 minutes. [facility] Saline Flush 0.9% 2016-04-12 03:47:00 No Notes: Same as: BD Posiflush Sterile [facility] Acetaminophen 300 MG / Codeine Phosphate 30 MG Oral Tablet [Tylenol with Codeine #3] 2016-03-27 16:39:00 Yes 1 - 2 tab, PO, Q4H, PRN Pain, X 3 day, # 20 tab, 0 Refill(s) [facility] Clindamycin 300 MG Oral Capsule [Cleocin] 2016-03-27 16:38:00 Yes 300 mg = 1 cap, PO, QID, X 10 day, # 40 cap, 0 Refill(s) [facility] Dilaudid 2016-03-27 16:29:00 No 0.5 mg, 0.5 mL, Route: IM, Drug form: INJ, ONCE, Dosing Weight 72.727, kg, Priority: STAT, Start date: 03/27/16 10:29:00 LABEL REWINDER, Stop date: 03/27/16 10:29:00 LABEL REWINDER [facility] Acetaminophen 325 MG / Hydrocodone Bitartrate 10 MG Or al Tablet [Calhoun 10/325] 2016-03-27 16:26:00 No 1 ta b, Route: PO, Drug Form: TAB, Dosing Weight 72.727, kg, ONCE, STAT, Start date: 03/27/16 10:26:00 LABEL REWINDER, Stop date: 03/27/16 10:26:00 LABEL REWINDER [facility] Clindamycin 2016-03-27 16:25:00 No Notes: (clindamycin 150 mg/1 ml (600 mg/4 ml VL) INJ) (Same As: Cleocin) [facility] Thyroxine 2014-12-09 14:00:00 No Notes: Take 1 hour before or 2 hours after meal; Enteral feeds may interefere with the absorption of this medication. (Same as: Levothroid) [facility] Plavix 2014-12-09 14:00:00 No Notes: (Same As: Plavix) [facility] 24 HR Metoprolol Tartrate 50 MG Extended Release Tablet [Top rol] 2014-12-09 14:00:00 No Notes: (Sa me as: Toprol XL) May split tab, but do not crush. [facility] Lisinopril 2014-12-08 22:00:00 No Notes: (Same as: Prinivil, Zestril) [facility] pantoprazole 2014-12-08 21:30:00 No Notes: Tablet should not be chewed or crushed. (Same as: Protonix) [facility] Sucralfate 100 MG/ML Oral Suspension [Carafate] 2014-12-08 18:00 :00 No Notes: Enteral feeds may int erfere with the absorption of this medication. Shake well. Take 1 hr before or 2 hrs after antacids, dairy pdt, minerals & meals. (Same As: Carafate) [facility] Erythromycin 250 MG Enteric Coated Tablet 2014-12-08 17:00:00 No Notes: (Same as: Brenton-Tab) Give With Food "Do Not Crush" [facility] Sucralfate 100 MG/ML Oral Suspension [Carafate] 2014-12-08 16:49 :00 Yes 1 gm = 10 ml, PO, QID-Before Meals, # 1200 mL, 0 Refil l(s) [facility] tramadol hydrochloride 50 MG Oral Tablet 2014-12-08 16:49:00 Yes 50 mg = 1 tab, PO, Q6H, PRN Pain, # 30 tab, 0 Refill(s) [facility] Aspirin 325 MG Oral Tablet 2014-12-08 16:39:00 No Notes: Take with food. [facility] Hyoscyamine 2014-12-08 16:30:00 No Notes: (Same as: Levsin) Take 30 min before meal [facility] Valium 2014-12-08 16:16:00 No Notes: (Same as: Valium) [facility] Clonidine Hydrochloride 0.1 MG Oral Tablet 2014-12-08 16:16:00 No Notes: (Same As: Catapres) [facility] Diazepam 10 MG Oral Tablet [Valium] 2014-12-08 09:35:00 Yes 10 mg = 1 tab, PO, TID, PRN Anxiety, 0 Refill(s) [facility] Temazepam 30 MG Oral Capsule [Restoril] 2014-12-08 09:35:00 Yes 30 mg = 1 cap, PO, Bedtime, PRN Sleep, 0 Refill(s) [facility] clopidogrel 75 MG Oral Tablet [Plavix] 2014-12-08 09:35:00 Yes 75 mg = 1 tab, PO, Daily, # 30 tab, 0 Refill(s) [facility] tramadol hydrochloride 50 MG Oral Tablet 2014-12-08 09:35:00 No 50 mg = 1 tab, PO, Q6H, PRN Pain, 0 Refill(s) [facility] promethazine 25 mg oral tablet 2014-12-08 09:35:00 Yes 25 mg = 1 tab, PO, Q4H, PRN Nausea/Vomiting, 0 Refill(s) [facility] pantoprazole 40 mg oral enteric coated tablet 2014-12-08 09:35:0 0 Yes 40 mg = 1 tab, PO, Before Dinner, 0 Refill(s) [facility] metoprolol 50 mg oral tablet, extended release 2014-12-08 09:35: 00 Yes 50 mg = 1 tab, PO, BID, 0 Refill(s) [facility] lisinopril 20 mg oral tablet 2014-12-08 09:35:00 Yes 20 mg = 1 tab, PO, BID, # 60 tab, 0 Refill(s) [facility] levothyroxine 200 mcg (0.2 mg) oral tablet 2014-12-08 09:35:00 Yes 200 microgram = 1 tab, PO, Daily, # 30 tab, 0 Refill(s) [facility] hyoscyamine 0.125 mg sublingual tablet 2014-12-08 09:35:00 Yes 0.125 mg = 1 tab, SL, Before Meals & Bedtime, 0 Refill(s) [facility] erythromycin 250 mg oral delayed release capsule 2014-12-08 09:35:00 Yes 250 mg = 1 cap, PO, Q6H, # 40 cap, 0 Refill(s) [facility] Clonidine Hydrochloride 0.1 MG Oral Tablet 2014-12-08 09:35:00 Yes 0.1 mg = 1 tab, PO, TID, PRN Hypertension, 0 Refill(s) [facility] Aspirin 325 MG Oral Tablet 2014-12-08 09:35:00 Yes 325 mg = 1 tab, PO, Daily, # 30 tab, 0 Refill(s) Eleni heleticia Phenergan 2014-12-08 09:10:00 No Notes: Do not give IV push. (Same as: Phenergan) [facility] Morphine 2014-12-08 09:07:00 No Not es: (Same as:MORPhine Sulfate) [facility] Sodium Chloride 0.154 MEQ/ML Injectable Solution 2014-12-08 09:0 7:00 No 1,000 mL, Rate: 125 ml/hr, I nfuse over: 8 hr, Route: IV, Dosing Weight 81.818 kg, Total Volume: 1,000, Start date: 12/08/14 4:07:00, Duration: 30 day, Stop date: 01/07/15 4:06:00 [facility] Saline Flush 0.9% 2014-12-08 09:07:00 No Notes: (Same as: BD Posiflush) [facility] nitroglycerin 0.4 mg sublingual tablet 2014-12-08 08:28:00 No Notes: (Same as:Nitroquick, Nitrostat) "Do Not Crush" Sublingual tablet [facility] atropine 2014-12-08 08:28:00 No 0.5 mg, 5 mL, Route: IVP, Drug form: INJ, PRN, PRN Bradycardia, Start date: 12/08/14 3:28:00, Duration: 30 day, Stop date: 01/07/15 3:27:00 [facility] Furosemide 20 MG Oral Tablet [Lasix] 2014-12-08 07:57:00 No 20 mg = 1 tab, PO, Daily, 0 Refill(s) [facility] Labetalol 2014-12-08 06:13:00 No Notes: (Same as: Normodyne, Trandate) Push over 2 minutes Give bolus over 2-3 minutes. [facility] Nitroglycerin 0.4 MG Sublingual Tablet [Nitrostat] 06:01:00 No Notes: (Same as:Nitroquick, Nitr ostat) "Do Not Crush" Sublingual tablet [facility] Phenergan 2014-12-08 05:34:00 No 12.5 mg, Route: IVPB, ONCE, Dosing Weight 77.273, kg, Priority: STAT, Start date: 12/08/14 0:34:00, Stop date: 12/08/14 0:34:00 [facility] Morphine 2014-12-08 05:34:00 No 4 mg, Route: IVP, Drug form: INJ, ONCE, Dosing Weight 77.273, kg, Priority: STAT, Start date: 12/08/14 0:34:00, Stop date: 12/08/14 0:34:00 [facility] Morphine 2014-12-08 05:26:00 No 4 mg, Route: IVP, Drug form: INJ, ONCE, Dosing Weight 77.273, kg, Priority: STAT, Start date: 12/08/14 0:26:00, Stop date: 12/08/14 0:26:00 [facility] 2014-12-08 05:25:00 No 12.5 mg, Route: IVPB, ONCE, Dosing Weight 77.273, kg, Priority: STAT, Start date: 12/08/14 0:25:00, Stop date: 12/08/14 0:25:00 [facility] Bentyl 2014-12-08 04:41:00 No 20 mg, Route: PO, ONCE, Dosing Weight 77.273, kg, Start date: 12/07/14 23:41:00, Stop date: 12/07/14 23:41:00 [facility] Morphine 2014-12-08 03:35:00 No 4 mg, Route: IVP, Drug form: INJ, ONCE, Dosing Weight 77.273, kg, Priority: STAT, Start date: 12/07/14 22:35:00, Stop date: 12/07/14 22:35:00 [facility] GI cocktail 2014-12-08 01:59:00 No Notes: G.I. Cocktail = antacid with simethicone 22.5 mL - lidocaine viscous 7.5 mL [facility] Morphine 2014-12-08 01:58:00 No 4 mg, Route: IVP, Drug form: INJ, ONCE, Dosing Weight 77.273, kg, Priority: STAT, Start date: 12/07/14 20:58:00, Stop date: 12/07/14 20:58:00 [facility] Protonix 2014-12-08 01:58:00 No 40 mg, Route: IVP, ONCE, Dosing Weight 77.273, kg, Priority: STAT, Start date: 12/07/14 20:58:00, Stop date: 12/07/14 20:58:00 [facility] Clonidine 2014-12-08 00:49:00 No 0.1 mg, Route: PO, Drug form: TAB, ONCE, Dosing Weight 77.273, kg, Priority: STAT, Start date: 12/07/14 19:49:00, Stop date: 12/07/14 19:49:00 [facility] Phenergan 2014-12-08 00:49:00 No 12.5 mg, Route: IVPB, ONCE, Dosing Weight 77.273, kg, Priority: STAT, Start date: 12/07/14 19:49:00, Stop date: 12/07/14 19:49:00 [facility] Sodium Chloride 0.154 MEQ/ML Injectable Solution 2014-12-08 00:4 8:00 No 1,000 mL, 1,000 ml/hr, Infus e Over: 1 hr, Route: IV, ONCE, Priority: STAT, Dosing Weight 77.273 kg, Start date: 12/07/14 19:48:00, Duration: 1 doses or times, Stop date: 12/07/14 19:48:00 [facility] 50 mg oral tablet 2014-12-01 21:20:58 Y es 50 mg = 1 tab, PO, Q12H, # 120 tab, 0 Refill(s) [facility] lisinopril 20 mg oral tablet 2014-12-01 21:20:56 Yes 20 mg = 1 tab, PO, BID, # 60 tab, 0 [facility] MG Oral Tablet [Plavix] 2014-12-01 21:20:47 Yes 75 mg = 1 tab, PO, Daily, # 30 tab, 0 Refill(s) [facility] Aspirin 325 MG Oral Tablet 2014-12-01 21:20:16 Yes 325 mg, PO, Daily, # 30 tab, 0 Refill(s) Shanell mckenzie Temazepam 30 MG Oral Capsule [Restoril] 2014-12-01 21:19:00 Yes 30 mg = 1 cap, PO, Bedtime, X 7 day, # 7 cap, 0 Refill(s) [facility] Diazepam 10 MG Oral Tablet [Valium] 2014-12-01 21:19:00 Yes 10 mg = 1 tab, PO, TID, PRN Anxiety, X 7 day, # 21 tab, 0 Refill(s) [facility] levothyroxine 200 mcg (0.2 mg) oral tablet 2014-12-01 21:19:00 Yes 200 microgram = 1 tab, PO, Daily, # 30 tab, 0 Refill(s) [facility] Clonidine Hydrochloride 0.1 MG Oral Tablet 2014-12-01 21:19:00 Yes 0.1 mg = 1 tab, PO, TID, PRN Hypertension, # 90 tab, 0 Refill(s) [facility] tramadol hydrochloride 50 MG Oral Tablet 2014-12-01 21:19:00 Yes 50 mg = 1 tab, PO, Q6H, PRN Pain, X 10 day, # 40 tab, 0 Refill(s) [facility] erythromycin 250 mg oral tablet 2014-12-01 21:19:00 Yes 250 mg = 1 tab, PO, Q6H, X 10 day, # 40 tab, 0 Refill(s) [facility] promethazine 25 mg oral tablet 2014-12-01 21:19:00 Yes 25 mg = 1 tab, PO, Q4H, PRN Allergic reaction, X 7 day, # 42 tab, 0 Refill(s) [facility] pantoprazole 40 mg oral enteric coated tablet 2014-12-01 21:19:0 0 Yes 40 mg = 1 tab, PO, Before Dinner, # 30 tab, 0 Refill(s) [facility] hyoscyamine 0.125 mg sublingual tablet 2014-12-01 21:19:00 Yes 0.125 mg = 1 tab, PO, Before Meals & Bedtime, # 120 tab, 0 Refill(s) [facility] hydrOXYzine hydrochloride 10 mg/5 mL oral syrup 2014-11-29 23:24 :00 No Notes: (Same as: Atarax) [facility] Erythromycin Ethylsuccinate 40 MG/ML Oral Suspension 11-29 22:00:00 No Notes: (Same as: E.E.S.-400) [facility] Hydroxyzine 2014-11-29 21:45:00 No Notes: (Same as: Vistaril) Avoid alcohol. [facility] Tylenol 2014-11-28 16:53:00 No Notes: Do not exceed 4 gm/day. (Same as: Tylenol) [facility] Dilaudid 2014-11-28 16:53:00 No 1 mg, 1 mL, Route: IV, Drug form: INJ, Q4H, Dosing Weight 81.818, kg, PRN Pain Score 7-10, Start date: 11/28/14 11:53:00, Duration: 30 day, Stop date: 12/28/14 11:52:00 [facility] Levsin 2014-11-28 02:00:00 No Notes: (Same as: Levsin) Take 30 min before meal [facility] Protonix 2014-11-26 21:30:00 No Notes: Tablet should not be chewed or crushed. (Same as: Protonix) [facility] Levsin 2014-11-26 14:34:00 No Notes: (Same as: Levsin) Take 30 min before meal [facility] Sodium Chloride 0.154 MEQ/ML Injectable Solution 2014-11-26 13:1 5:00 No 500 mL, Rate: 25 ml/hr, Infu se over: 20 hr, Route: IV, Dosing Weight 81.818 kg, Total Volume: 500, Start date: 11/26/14 8:15:00, Duration: 1 day, Stop date: 11/27/14 8:14:00 [facility] Dilaudid 2014-11-25 22:51:00 No 1 mg, 1 mL, Route: IVP, Drug form: INJ, ONCE, Dosing Weight 81.818, kg, Priority: STAT, Start date: 11/25/14 17:51:00, Stop date: 11/25/14 17:51:00 [facility] Plavix 2014-11-25 14:00:00 No Notes: (Same As: Plavix) [facility] Aspirin 325 MG Oral Tablet 2014-11-25 14:00:00 No Notes: Take with food. [facility] Thyroxine 2014-11-25 11:30:00 No Notes: Take 1 hour before or 2 hours after meal; Enteral feeds may interefere with the absorption of this medication. (Same as: Levothroid) [facility] Famotidine 20 MG Oral Tablet 2014-11-25 02:00:00 No Notes: (Same as: Pepcid) [facility] Restoril 2014-11-25 02:00:00 No Notes: (Alexandro e As: Restoril) [facility] metoprolol tartrate 2014-11-25 02:00:00 No Notes: (Same as: Lopressor) [facility] Lisinopril 2014-11-25 02:00:00 No Notes: (Same as: Prinivil, Zestril) [facility] Lipitor 2014-11-25 02:00:00 No Notes: (Same as: Lipitor) [facility] Dilaudid 2014 22:16:00 No 0.5 mg, 0.5 mL, Route: IV, Drug form: INJ, Q3H, Dosing Weight 81.818, kg, PRN Pain Score 7-10, Start date: 11/24/14 17:16:00, Duration: 30 day, Stop date: 12/24/14 17:15:00 [facility] Acetaminophen 325 MG / Hydrocodone Bitartrate 10 MG Or al Tablet [Calhoun 10/325] 2014 22:13:00 No Note s: Do not exceed 4gm/day of acetaminophen. (Same as: Calhoun 325/10) [facility] Valium 2014 22:12:00 No Notes: (Same as: Valium) [facility] Phenergan 2014 06:07:00 No Notes: Do not give IV push. (Same as: Phenergan) [facility] Saline Flush 0.9% 2014 02:00:00 No Notes: (Same as: BD Posiflush) [facility] Dilaudid 2014-11-23 23:49:00 No 0.5 mg, 0.5 mL, Route: IV, Drug form: INJ, Q4H, Dosing Weight 81.818, kg, PRN Pain Score 7-10, Start date: 11/23/14 18:49:00, Duration: 30 day, Stop date: 12/23/14 18:48:00 [facility] Phenergan 2014-11-23 23:49:00 No Notes: (Sa me as: Phenergan) [facility] Magnesium Sulfate 2014-11-23 23:46:00 No 2 gm, 50 mL, Route: IVPB, Drug form: INJ, ONCE, Dosing Weight 81.818, kg, Total dose = 2 gm, Start date: 11/23/14 18:46:00, Duration: 1 doses or times, Stop date: 11/23/14 18:46:00 [facility] normal saline 0.9% IV 1,000 mL 2014-11-23 23:39:00 No 1,000 mL, Rate: 80 ml/hr, Infuse over: 12.5 hr, Route: IV, Dosing Weight 81.818 kg, Total Volume: 1,000, Start date: 11/23/14 18:39:00, Stop date: 12/23/14 18:38:00 [facility] nitroglycerin 0.4 mg sublingual tablet 2014-11-23 23:37:00 No Notes: (Same as:Nitroquick, Nitrostat) "Do Not Crush" Sublingual tablet [facility] atropine 2014-11-23 23:36:00 No 0.5 mg, 5 mL, Route: IVP, Drug form: INJ, PRN, PRN Bradycardia, Start date: 11/23/14 18:36:00, Duration: 30 day, Stop date: 12/23/14 18:35:00 [facility] Pepcid 2014-11-23 23:21:00 No Notes: (Same as: Pepcid) Can be dilute in 5-10cc NS IVP: Slow IV push over at least 2 minutes. [facility] Dilaudid 2014-11-23 22:57:00 No 1 mg, Route: IVP, ONCE, Dosing Weight 81.818, kg, Priority: STAT, Start date: 11/23/14 17:57:00, Stop date: 11/23/14 17:57:00 [facility] Benadryl 2014-11-23 22:56:00 No 25 mg, Route: IVP, ONCE, Dosing Weight 81.818, kg, PRN Allergic reaction, Start date: 11/23/14 17:56:00 [facility] Reglan 2014-11-23 22:55:00 No 10 mg, Route: IVP, ONCE, Dosing Weight 81.818, kg, Start date: 11/23/14 17:55:00, Stop date: 11/23/14 17:55:00 [facility] Clonidine Hydrochloride 0.1 MG Oral Tablet 2014-11-23 22:42:00 No 160 [facility] Droperidol 2014-11-23 22:42:00 No 0.625 mg, Route: IVP, ONCE, Dosing Weight 81.818, kg, PRN Nausea, Start date: 11/23/14 17:42:00, Stop date: 12/23/14 17:41:00 [facility] Saline Flush 0.9% 2014-11-23 22:17:00 No Notes: (Same as: BD Posiflush) [facility] Morphine 2014-11-23 22:17:00 No Not es: (Same as:MORPhine Sulfate) [facility] Nitroglycerin 2014-11-23 22:17:00 No Notes: (Same as:Nitroquick, Nitrostat) "Do Not Crush" Sublingual tablet [facility] Morphine 2014-11-23 20:34:00 No Not es: (Same as:MORPhine Sulfate) [facility] Clonidine Hydrochloride 0.1 MG Oral Tablet 2014-11-23 20:33:00 No Notes: (Same As: Catapres) [facility] Labetalol 2014-11-23 20:33:00 No Notes: (Same as: Normodyne, Trandate) Push over 2 minutes Give bolus over 2-3 minutes. [facility] Ativan 2014-11-23 19:33:00 No 1 mg, Route: PO, Drug form: TAB, ONCE, Dosing Weight 81.818, kg, Priority: STAT, Start date: 11/23/14 14:33:00, Stop date: 11/23/14 14:33:00 [facility] Nitroglycerin 2014-11-23 18:20:00 No Notes: (Same as:Nitroquick, Nitrostat) "Do Not Crush" Sublingual tablet [facility] Morphine 2014-11-23 18:13:00 No 4 mg, Route: IVP, Drug form: INJ, ONCE, Dosing Weight 81.818, kg, Priority: STAT, Start date: 11/23/14 13:13:00, Stop date: 11/23/14 13:13:00 [facility] t Saline Flush 0.9% 2014-11-23 17:33:00 No Notes: (Same as: BD Posiflush) [facility] multivitamin with minerals 2014-09-19 14:00:00 No Notes: (Same as:Thera-M, Theragran-M) Give with food. [facility] Thyroxine 2014-09-19 14:00:00 No Notes: Take 1 hour before or 2 hours after meal; Enteral feeds may interefere with the absorption of this medication.(Same as:Levothroid, Synthroid) [facility] Aspirin 325 MG Oral Tablet 2014-09-19 14:00:00 No 325 mg, Route: PO, Drug form: TAB, Daily, Dosing Weight 79.545, kg, Start date: 09/19/14 9:00:00, Duration: 30 day, Stop date: 10/18/14 9:00:00 [facility] Plavix 2014-09-19 14:00:00 No 75 mg, Route: PO, Drug form: TAB, Daily, Dosing Weight 79.545, kg, Start date: 09/19/14 9:00:00, Duration: 30 day, Stop date: 10/18/14 9:00:00 [facility] potassium chloride 2014-09-19 14:00:00 No 80 mEq, Route: PO, Daily, Dosing Weight 79.545, kg, Start date: 09/19/14 9:00:00, Duration: 30 day, Stop date: 10/18/14 9:00:00 [facility] metoprolol tartrate 2014-09-19 02:00:00 No 50 mg, Route: PO, Drug form: TAB, Q12H, Dosing Weight 79.545, kg, Start date: 09/18/14 21:00:00, Duration: 30 day, Stop date: 10/18/14 9:00:00 [facility] Lipitor 2014-09-19 02:00:00 No 80 mg, Route: PO, Drug form: TAB, Bedtime, Dosing Weight 79.545, kg, Start date: 09/18/14 21:00:00, Duration: 30 day, Stop date: 10/17/14 21:00:00 [facility] theast Restoril 2014-09-19 02:00:00 No 30 mg, Route: PO, Drug form: CAP, Bedtime, Dosing Weight 79.545, kg, Start date: 09/18/14 21:00:00, Duration: 30 day, Stop date: 10/17/14 21:00:00 [facility] moy Lisinopril 2014-09-18 22:00:00 No 20 mg, Route: PO, Drug form: TAB, BID, Dosing Weight 79.545, kg, Start date: 09/18/14 17:00:00, Duration: 30 day, Stop date: 10/18/14 9:00:00 [facility] acetaminophen-hydrocodone 325 mg-10 mg oral tablet 2014-09-03 6 17:26:00 No Notes: Do not exceed 4gm/day of acetamino phen. (Same as: Calhoun 325/10) [facility] Hydralazine Hydrochloride 10 MG Oral Tablet 2014-09-18 17:19:00 No Notes: (Same as: Apresoline) May interfere w/enteral feedings. Take With Food [facility] Acetaminophen 325 MG / Hydrocodone Bitartrate 10 MG Or al Tablet [Calhoun 10/325] 2014-09-18 17:17:00 No Note s: Do not exceed 4gm/day of acetaminophen. (Same as: Calhoun 325/10) [facility] metoprolol tartrate 50 mg oral tablet 2014-09-18 16:56:00 Y es 50 mg = 1 tab, PO, Q12H, # 120 tab, 0 Refill(s) [facility] clopidogrel 75 MG Oral Tablet [Plavix] 2014-09-18 16:56:00 Yes 75 mg = 1 tab, PO, Daily, # 30 tab, 0 Refill(s) [facility] atorvastatin 80 MG Oral Tablet [Lipitor] 2014-09-18 16:56:00 Yes 80 mg = 1 tab, PO, Bedtime, # 30 tab, 0 Refill(s) [facility] lisinopril 20 mg oral tablet 2014-09-18 16:56:00 Yes 20 mg = 1 tab, PO, BID, # 60 tab, 0 Refill(s) [facility] Aspirin 325 MG Oral Tablet 2014-09-18 16:56:00 Yes 325 mg, PO, Daily, # 30 tab, 0 [facility] MG Oral Tablet 2014-09-18 16:56:00 Yes 160 mmHg, # 120 tab, 0 Refill(s) [facility] Saline Flush 0.9% 2014-09-18 14:00:00 No Notes: (Same as: BD Posiflush) [facility] Valium 2014-09-18 12:54:00 No Notes: (Same as: Valium) [facility] metoprolol tartrate 2014-09-18 12:54:00 No Notes: (Same as: Lopressor) [facility] Lisinopril 2014-09-18 12:54:00 No Notes: (Same as: Prinivil, Zestril) [facility] clopidogrel 75 MG Oral Tablet [Plavix] 2014-09-18 12:42:00 No 75 mg = 1 tab, PO, Daily [facility] lisinopril 20 mg oral tablet 2014-09-18 12:42:00 No 20 mg = 1 tab, PO, BID, 0 Refill(s) [facility] Temazepam 30 MG Oral Capsule [Restoril] 2014-09-18 12:42:00 Yes 30 mg = 1 cap, PO, Bedtime [facility] Diazepam 10 MG Oral Tablet [Valium] 2014-09-18 12:42:00 Yes 10 mg = 1 tab, PO, TID, PRN Anxiety [facility] metoprolol tartrate 50 mg oral tablet 2014-09-18 12:42:00 N o 50 mg = 1 tab, PO, Q12H [facility] levothyroxine 200 mcg (0.2 mg) oral tablet 2014-09-18 12:42:00 Yes 200 microgram = 1 tab, PO, Daily, # 30 tab [facility] Aspirin 2014-09-18 12:42:00 No 325 mg, PO, Daily, 0 Refill(s) [facility] 2014-09-18 12:42:00 Yes 1 tab, PO, Daily, 0 Refill(s) [facility] atorvastatin 80 MG Oral Tablet [Lipitor] 2014-09-18 12:42:00 No 80 mg = 1 tab, PO, Bedtime [facility] Acetaminophen 325 MG / Hydrocodone Bitartrate 10 MG Or al Tablet [Calhoun 10/325] 2014-09-18 12:42:00 Yes 1-2 tab, PO, Q4-6H , PRN Pain [facility] potassium chloride 2014-09-18 12:42:00 Yes 8 0 mEq, PO, Daily [facility] Phenergan 2014-09-18 11:35:00 No Notes: Do not give IV push. (Same as: Phenergan) [facility] Metoprolol 2014-09-18 10:09:00 No 5 mg, Route: IV, ONCE, Dosing Weight 79.545, kg, Start date: 09/18/14 5:09:00, Stop date: 09/18/14 5:09:00 [facility] Morphine 2014-09-18 10:08:00 No 4 mg, Route: IVP, ONCE, Dosing Weight 79.545, kg, Start date: 09/18/14 5:08:00, Stop date: 09/18/14 5:08:00 [facility] Saline Flush 0.9% 2014-09-18 08:20:00 No Notes: (Same as: BD Posiflush) [facility] Nitroglycerin 2014-09-18 08:20:00 No Notes: (Same as:Nitroquick, Nitrostat) "Do Not Crush" Sublingual tablet [facility] Aspirin 325 MG Oral Tablet 2014-09-18 08:20:00 No Notes: Take with food. [facility] Ativan 2014-09-18 07:14:00 No 0.5 mg, Route: IVP, Drug form: INJ, ONCE, Dosing Weight 79.545, kg, PRN Anxiety, Start date: 09/18/14 2:14:00 [facility] Nitroglycerin 0.02 MG/MG Topical Ointment 2014-09-18 05:22:00 No 0.5 inch, Route: TOP, Dosing Weight 79.545, kg, ONCE, Start date: 09/18/14 0:22:00, Stop date: 09/18/14 0:22:00 [facility] Aspirin 325 MG Oral Tablet 2014-09-18 05:10:00 No 325 mg, Route: PO, Drug form: TAB, ONCE, Dosing Weight 79.545, kg, Priority: STAT, Start date: 09/18/14 0:10:00, Stop date: 09/18/14 0:10:00 [facility] Vital Signs Vital Name Observation Time Observation Value Comments Source Heart Rate 2016-04-13 20:51:00 [facility] Temperature Oral (F) 2016-04-13 20:51:00 98.7 F [facility] Systolic (mm Hg) 2016-04-13 20:51:00 [facility] Diastolic (mm Hg) 2016-04-13 20:51:00 [facility] Respitory Rate 2016-04-13 20:51:00 [facility] Systolic (mm Hg) 2016-04-13 16:42:00 [facility] Diastolic (mm Hg) 2016-04-13 16:42:00 [facility] Temperature Oral (F) 2016-04-13 16:42:00 98.7 F [facility] Respitory Rate 2016-04-13 16:42:00 [facility] Heart Rate 2016-04-13 16:42:00 [facility] Weight 2016-04-13 14:56:00 [facility] Height 2016-04-13 14:56:00 177.8 cm [facility] BMI Calculated 2016-04-13 14:56:00 [facility] Systolic (mm Hg) 2016-04-13 13:37:00 [facility] Diastolic (mm Hg) 2016-04-13 13:37:00 [facility] Temperature Oral (F) 2016-04-13 13:37:00 98.0 F [facility] Heart Rate 2016-04-13 13:37:00 [facility] Respitory Rate 2016-04-13 13:37:00 [facility] Weight 2016-04-12 09:59:00 [facility] BMI Calculated 2016-04-12 09:59:00 [facility] Height 2016-04-12 09:59:00 177.8 cm [facility] Height 2016-04-12 03:37:00 160.02 cm [facility] BMI Calculated 2016-04-12 03:37:00 [facility] Weight 2016-04-12 03:37:00 [facility] Weight 2016-03-31 16:29:00 [facility] Height 2016-03-31 16:29:00 160.02 cm [facility] Systolic (mm Hg) 2016-03-31 16:29:00 [facility] Diastolic (mm Hg) 2016-03-31 16:29:00 [facility] Temperature Oral (F) 2016-03-31 16:29:00 97.9 F [facility] Respitory Rate 2016-03-31 16:29:00 [facility] Heart Rate 2016-03-31 16:29:00 [facility] BMI Calculated 2016-03-31 16:29:00 [facility] Temperature Oral (F) 2016-03-27 17:24:00 98.2 F [facility] Respitory Rate 2016-03-27 17:24:00 [facility] Heart Rate 2016-03-27 17:24:00 [facility] Systolic (mm Hg) 2016-03-27 17:24:00 [facility] Diastolic (mm Hg) 2016-03-27 17:24:00 [facility] Weight 2016-03-27 16:04:00 [facility] BMI Calculated 2016-03-27 16:04:00 [facility] Height 2016-03-27 16:04:00 160.02 cm [facility] Respitory Rate 2016-03-27 16:04:00 [facility] Heart Rate 2016-03-27 16:04:00 [facility] Systolic (mm Hg) 2016-03-27 16:04:00 [facility] Diastolic (mm Hg) 2016-03-27 16:04:00 [facility] Temperature Oral (F) 2016-03-27 16:04:00 98.3 F [facility] Respitory Rate 2014-12-08 17:05:00 [facility] Systolic (mm Hg) 2014-12-08 17:05:00 [facility] Diastolic (mm Hg) 2014-12-08 17:05:00 [facility] Weight 2014-12-08 15:32:00 [facility] Systolic (mm Hg) 2014-12-08 13:00:00 [facility] Diastolic (mm Hg) 2014-12-08 13:00:00 [facility] Respitory Rate 2014-12-08 13:00:00 [facility] Temperature Oral (F) 2014-12-08 13:00:00 97.4 F [facility] Heart Rate 2014-12-08 13:00:00 [facility] Height 2014-12-08 08:51:00 160.02 cm [facility] Weight 2014-12-08 08:51:00 [facility] BMI Calculated 2014-12-08 08:51:00 [facility] Temperature Oral (F) 2014-12-08 08:10:00 97.5 F [facility] Heart Rate 2014-12-08 08:10:00 [facility] Systolic (mm Hg) 2014-12-08 08:10:00 [facility] Diastolic (mm Hg) 2014-12-08 08:10:00 [facility] Respitory Rate 2014-12-08 08:10:00 [facility] Temperature Oral (F) 2014-12-08 07:24:00 97.7 F [facility] Weight 2014-12-07 22:35:00 [facility] BMI Calculated 2014-12-07 22:35:00 [facility] Height 2014-12-07 22:35:00 160.02 cm [facility] Heart Rate 2014-12-07 22:35:00 [facility] Temperature Oral (F) 2014-12-01 19:57:00 97.9 F [facility] Respitory Rate 2014-12-01 19:57:00 [facility] Systolic (mm Hg) 2014-12-01 19:57:00 [facility] Diastolic (mm Hg) 2014-12-01 19:57:00 [facility] Heart Rate 2014-12-01 19:57:00 [facility] Systolic (mm Hg) 2014-12-01 18:20:00 [facility] Diastolic (mm Hg) 2014-12-01 18:20:00 [facility] Respitory Rate 2014-12-01 16:55:00 [facility] Systolic (mm Hg) 2014-12-01 16:55:00 [facility] Diastolic (mm Hg) 2014-12-01 16:55:00 [facility] Heart Rate 2014-12-01 16:55:00 [facility] Temperature Oral (F) 2014-12-01 16:55:00 98.1 F [facility] Respitory Rate 2014-12-01 12:56:00 [facility] Temperature Oral (F) 2014-12-01 12:56:00 97.5 F [facility] Heart Rate 2014-12-01 12:56:00 [facility] Weight 2014-11-26 21:37:00 [facility] Height 2014-11-23 17:05:00 160.02 cm [facility] Weight 2014-11-23 17:05:00 [facility] BMI Calculated 2014-11-23 17:05:00 [facility] Heart Rate 2014-09-18 17:03:00 [facility] Systolic (mm Hg) 2014-09-18 17:03:00 [facility] Diastolic (mm Hg) 2014-09-18 17:03:00 [facility] Temperature Oral (F) 2014-09-18 17:03:00 97.9 F [facility] Respitory Rate 2014-09-18 17:03:00 [facility] Weight 2014-09-18 13:04:00 [facility] Height 2014-09-18 13:04:00 160.02 cm [facility] BMI Calculated 2014-09-18 13:04:00 [facility] Heart Rate 2014-09-18 12:49:00 [facility] Respitory Rate 2014-09-18 12:49:00 [facility] Systolic (mm Hg) 2014-09-18 12:49:00 [facility] Diastolic (mm Hg) 2014-09-18 12:49:00 [facility] Temperature Oral (F) 2014-09-18 12:49:00 98.3 F [facility] Temperature Oral (F) 2014-09-18 10:00:00 98.0 F [facility] Systolic (mm Hg) 2014-09-18 10:00:00 [facility] Diastolic (mm Hg) 2014-09-18 10:00:00 [facility] Heart Rate 2014-09-18 10:00:00 [facility] Respitory Rate 2014-09-18 10:00:00 [facility] Height 2014-09-18 00:22:00 160.02 cm [facility] BMI Calculated 2014-09-18 00:22:00 [facility] Weight 2014-09-18 00:22:00 [facility] Procedures Procedure Date / Time Performed Performing Clinician Sourc e Hysterectomy [facility] Procedure on back [facility] Thyroidectomy [facility] CABG x 1 - Coronary artery bypass graft x 1<sup>1</sup> [facility] Stent placement [facility] Cholecystectomy [facility] Encounters Start Date/Time End Date/Time Encounter Type Admission Type Attendi [facility] Care Department Encounter ID Source 2016-04-12 03:28:00 2016-04-13 21:42:00 Observation [facility] [id number] [facility] 2016-04-11 21:28:00 2016-04-13 15:42:00 Outpatient Jenna Ceja [facility] [id number] 2016-03-31 16:12:00 2016-03-31 17:17:00 Emergency [facility] [id number] [facility] 2016-03-31 10:12:00 2016-03-31 11:17:00 Outpatient Rosa Lam [facility] [id number] 2016-03-27 16:03:00 2016-03-27 17:20:00 Emergency [facility] [id number] [facility] 2016-03-27 10:03:00 2016-03-27 11:20:00 Outpatient Lokesh Felix [facility] [id number] 2014-12-07 22:27:00 2014-12-08 18:00:00 OBS Observation Patient [facility] [id number] [facility] 2014-12-07 17:27:00 2014-12-08 13:00:00 Outpatient Luis Lyles Dc [facility] [id number] 2014-11-23 16:54:00 2014-12-01 22:10:00 Inpatient [facility] [id number] [facility] 2014-11-23 11:54:00 2014-12-01 17:10:00 Outpatient CesiaChevy rodriguez [facility] [id number] 2014-09-17 23:40:00 2014-09-18 17:15:00 OBS Observation Patient [facility] [id number] [facility] 2014-09-17 18:40:00 2014-09-18 12:15:00 Outpatient Ruddy Guadarrama [facility] [id number] Results Test Description Test Time Test Comments Results Result Comments Source URINE CULTURE 2016-06-04 14:37:00 Test Item CULTURE (BEAKER) (test code = 1095) <10,000 col/mL skin jack [id number] 09:28:00* Test Item Value Reference Range Interpretation Comments ACTIVATED CLOTTING TIME (BEAKER) (test code = 441) 358 sec TESTED AT [facility] [address] [facility] [address] CBC W/PLT COUNT & AUTO [id number] 04:56:00* Test Item Value Reference Range Interpretation Comments WHITE BLOOD CELL COUNT (BEAKER) (test code = 775) 3.9 K/ L 4.0- 10.0 L RED BLOOD CELL COUNT (BEAKER) (test code = 761) 4.10 M/ L 4.00-5 .00 HEMOGLOBIN (BEAKER) (test code = 410) 13.4 GM/DL 12.0-15.0 HEMATOCRIT (BEAKER) (test code = 411) 38.0 % 36.0-45.0 MEAN CORPUSCULAR VOLUME (BEAKER) (test code = 753) 92.8 fL 82. 0-99.0 MEAN CORPUSCULAR HEMOGLOBIN (BEAKER) (test code = 751) 32.7 pg 27.0-33.0 MEAN CORPUSCULAR HEMOGLOBIN CONC (BEAKER) (test code = 752) 35.2 GM/DL 32.0-36.0 RED CELL DISTRIBUTION WIDTH (BEAKER) (test code = 412) 13.2 % 10.3-14.2 PLATELET COUNT (BEAKER) (test code = 756) 317 K/CU MM 150-430 MEAN PLATELET VOLUME (BEAKER) (test code = 754) 6.7 fL 6.5-10 .5 NUCLEATED RED BLOOD CELLS (BEAKER) (test code = 413) 0 /100 WBC 0 -0 NEUTROPHILS RELATIVE PERCENT (BEAKER) (test code = 429) 77 % LYMPHOCYTES RELATIVE PERCENT (BEAKER) (test code = 430) 22 % MONOCYTES RELATIVE PERCENT (BEAKER) (test code = 431) 1 % EOSINOPHILS RELATIVE PERCENT (BEAKER) (test code = 432) 0 % BASOPHILS RELATIVE PERCENT (BEAKER) (test code = 437) 0 % NEUTROPHILS ABSOLUTE COUNT (BEAKER) (test code = 670) 3.01 K/ L 1.80-8.00 LYMPHOCYTES ABSOLUTE COUNT (BEAKER) (test code = 414) 0.85 K/ L 1.48-4.50 L MONOCYTES ABSOLUTE COUNT (BEAKER) (test code = 415) 0.04 K/ L 0. 00-1.30 EOSINOPHILS ABSOLUTE COUNT (BEAKER) (test code = 416) 0.01 K/ L 0.00-0.50 BASOPHILS ABSOLUTE COUNT (BEAKER) (test code = 417) 0.01 K/ L 0. 00-0.20 0.00BASIC METABOLIC [id number] 04:43:00* Test Item Value Reference Range Interpretation Comments SODIUM (BEAKER) (test code = 381) 138 meq/L 136-145 POTASSIUM (BEAKER) (test code = 379) 3.6 meq/L 3.5-5.1 CHLORIDE (BEAKER) (test code = 382) 107 meq/L 98-107 CO2 (BEAKER) (test code = 355) 21 meq/L 22-29 L BLOOD UREA NITROGEN (BEAKER) (test code = 354) 16 mg/dL 7-21 CREATININE (BEAKER) (test code = 358) 0.82 mg/dL 0.57-1.25 GLUCOSE RANDOM (BEAKER) (test code = 652) 181 mg/dL 70-105 H CALCIUM (BEAKER) (test code = 697) 9.2 mg/dL 8.4-10.2 EGFR (BEAKER) (test code = 1092) 73 mL/min/1.73 sq m ESTIMATED GFR IS NOT ACCURATE CREATININE CLEARANCE IN PREDICTING GLOMERULAR FILTRATION RATE. ESTIMATED GFR IS NOT APPLICABLE FOR DIALYSIS PATIENTS. PROTHROMBIN TIME/[id number] 04:32:00* Test Item Value Reference Range Interpretation Comments PROTIME (BEAKER) (test code = 759) 12.3 seconds 11.7-14.7 INR (BEAKER) (test code = 370) 0.9 <=5.9 RECOMMENDED COUMADIN/WARFARIN INR THERAPY RANGESSTANDARD DOSE: 2.0 - 3.0 Inclu zach: PROPHYLAXIS for venous thrombosis, systemic embolization; TREATMENT for billie ous thrombosis and/or pulmonary embolus.HIGH RISK: Target INR is 2.5-3.5 for pat ients with mechanical heart valves.URINALYSIS W/ [id number] 11:09:00 * Test Item Value Reference Range Interpretation Comments COLOR (BEAKER) (test code = 470) Colorless CLARITY (BEAKER) (test code = 469) Clear SPECIFIC GRAVITY UA (BEAKER) (test code = 468) 1.004 1.001-1 .035 PH UA (BEAKER) (test code = 467) 7.0 5.0-8.0 PROTEIN UA (BEAKER) (test code = 464) Negative Negative GLUCOSE UA (BEAKER) (test code = 365) Negative Negative KETONES UA (BEAKER) (test code = 371) Negative Negative BILIRUBIN UA (BEAKER) (test code = 462) Negative Negative BLOOD UA (BEAKER) (test code = 461) Negative Negative NITRITE UA (BEAKER) (test code = 465) Negative Negative LEUKOCYTE ESTERASE UA (BEAKER) (test code = 466) Negative Negat pooja UROBILINOGEN UA (BEAKER) (test code = 463) 0.2 mg/dL 0.2-1.0 RBC UA (BEAKER) (test code = 519) 0 /HPF WBC UA (BEAKER) (test code = 520) < /HPF SOURCE(BEAKER) (test code = 2795) Urine, Clean Catch CBC W/PLT COUNT & AUTO [id number] 09:48:00* Test Item Value Reference Range Interpretation Comments WHITE BLOOD CELL COUNT (BEAKER) (test code = 775) 5.6 K/ L 4.0- 10.0 RED BLOOD CELL COUNT (BEAKER) (test code = 761) 3.72 M/ L 4.00-5 .00 L HEMOGLOBIN (BEAKER) (test code = 410) 12.4 GM/DL 12.0-15.0 HEMATOCRIT (BEAKER) (test code = 411) 34.9 % 36.0-45.0 L MEAN CORPUSCULAR VOLUME (BEAKER) (test code = 753) 93.8 fL 82. 0-99.0 MEAN CORPUSCULAR HEMOGLOBIN (BEAKER) (test code = 751) 33.3 pg 27.0-33.0 H MEAN CORPUSCULAR HEMOGLOBIN CONC (BEAKER) (test code = 752) 35.5 GM/DL 32.0-36.0 RED CELL DISTRIBUTION WIDTH (BEAKER) (test code = 412) 13.3 % 10.3-14.2 PLATELET COUNT (BEAKER) (test code = 756) 290 K/CU MM 150-430 MEAN PLATELET VOLUME (BEAKER) (test code = 754) 6.9 fL 6.5-10 .5 NUCLEATED RED BLOOD CELLS (BEAKER) (test code = 413) 0 /100 WBC 0 -0 NEUTROPHILS RELATIVE PERCENT (BEAKER) (test code = 429) 35 % LYMPHOCYTES RELATIVE PERCENT (BEAKER) (test code = 430) 52 % MONOCYTES RELATIVE PERCENT (BEAKER) (test code = 431) 8 % EOSINOPHILS RELATIVE PERCENT (BEAKER) (test code = 432) 4 % BASOPHILS RELATIVE PERCENT (BEAKER) (test code = 437) 1 % NEUTROPHILS ABSOLUTE COUNT (BEAKER) (test code = 670) 1.98 K/ L 1.80-8.00 LYMPHOCYTES ABSOLUTE COUNT (BEAKER) (test code = 414) 2.91 K/ L 1.48-4.50 MONOCYTES ABSOLUTE COUNT (BEAKER) (test code = 415) 0.44 K/ L 0. 00-1.30 EOSINOPHILS ABSOLUTE COUNT (BEAKER) (test code = 416) 0.23 K/ L 0.00-0.50 BASOPHILS ABSOLUTE COUNT (BEAKER) (test code = 417) 0.05 K/ L 0. 00-0.20 0.00(MANUAL DIFFERENTIAL)2016-06-03 09:48:00* Test Item Value Reference Range Interpretation Comments TOTAL COUNTED (BEAKER) (test code = 1351) PLT MORPHOLOGY (BEAKER) (test code = 486) Normal RBC MORPHOLOGY (BEAKER) (test code = 762) Normal ATYPICAL LYMPHS(BEAKER) (test code = 1678) Present BASIC METABOLIC [id number] 07:53:00* Test Item Value Reference Range Interpretation Comments SODIUM (BEAKER) (test code = 381) 140 meq/L 136-145 POTASSIUM (BEAKER) (test code = 379) 3.9 meq/L 3.5-5.1 Specimen slightly hemolyzed CHLORIDE (BEAKER) (test code = 382) 108 meq/L 98-107 H CO2 (BEAKER) (test code = 355) 22 meq/L 22-29 BLOOD UREA NITROGEN (BEAKER) (test code = 354) 16 mg/dL 7-21 CREATININE (BEAKER) (test code = 358) 0.77 mg/dL 0.57-1.25 Specimen slightly hemolyzed GLUCOSE RANDOM (BEAKER) (test code = 652) 95 mg/dL 70-105 CALCIUM (BEAKER) (test code = 697) 8.7 mg/dL 8.4-10.2 EGFR (BEAKER) (test code = 1092) 78 mL/min/1.73 sq m ESTIMATED GFR IS NOT ACCURATE CREATININE CLEARANCE IN PREDICTING GLOMERULAR FILTRATION RATE. ESTIMATED GFR IS NOT APPLICABLE FOR DIALYSIS PATIENTS. CBC W/PLT COUNT & AUTO [id number] 10:48:00* Test Item Value Reference Range Interpretation Comments WHITE BLOOD CELL COUNT (BEAKER) (test code = 775) 5.5 K/ L 4.0- 10.0 RED BLOOD CELL COUNT (BEAKER) (test code = 761) 3.82 M/ L 4.00-5 .00 L HEMOGLOBIN (BEAKER) (test code = 410) 12.2 GM/DL 12.0-15.0 HEMATOCRIT (BEAKER) (test code = 411) 36.4 % 36.0-45.0 MEAN CORPUSCULAR VOLUME (BEAKER) (test code = 753) 95.3 fL 82. 0-99.0 MEAN CORPUSCULAR HEMOGLOBIN (BEAKER) (test code = 751) 32.0 pg 27.0-33.0 MEAN CORPUSCULAR HEMOGLOBIN CONC (BEAKER) (test code = 752) 33.6 GM/DL 32.0-36.0 RED CELL DISTRIBUTION WIDTH (BEAKER) (test code = 412) 12.4 % 10.3-14.2 PLATELET COUNT (BEAKER) (test code = 756) 320 K/CU MM 150-430 MEAN PLATELET VOLUME (BEAKER) (test code = 754) 6.8 fL 6.5-10 .5 NUCLEATED RED BLOOD CELLS (BEAKER) (test code = 413) 0 /100 WBC 0 -0 NEUTROPHILS RELATIVE PERCENT (BEAKER) (test code = 429) 37 % LYMPHOCYTES RELATIVE PERCENT (BEAKER) (test code = 430) 51 % MONOCYTES RELATIVE PERCENT (BEAKER) (test code = 431) 7 % EOSINOPHILS RELATIVE PERCENT (BEAKER) (test code = 432) 4 % BASOPHILS RELATIVE PERCENT (BEAKER) (test code = 437) 1 % NEUTROPHILS ABSOLUTE COUNT (BEAKER) (test code = 670) 2.03 K/ L 1.80-8.00 LYMPHOCYTES ABSOLUTE COUNT (BEAKER) (test code = 414) 2.77 K/ L 1.48-4.50 MONOCYTES ABSOLUTE COUNT (BEAKER) (test code = 415) 0.40 K/ L 0. 00-1.30 EOSINOPHILS ABSOLUTE COUNT (BEAKER) (test code = 416) 0.22 K/ L 0.00-0.50 BASOPHILS ABSOLUTE COUNT (BEAKER) (test code = 417) 0.06 K/ L 0. 00-0.20 0.00(MANUAL DIFFERENTIAL)2016-06-02 10:48:00* Test Item Value Reference Range Interpretation Comments TOTAL COUNTED (BEAKER) (test code = 1351) WBC MORPHOLOGY (BEAKER) (test code = 487) Normal PLT MORPHOLOGY (BEAKER) (test code = 486) Normal RBC MORPHOLOGY (BEAKER) (test code = 762) Normal BASIC METABOLIC [id number] 06:46:00* Test Item Value Reference Range Interpretation Comments SODIUM (BEAKER) (test code = 381) 137 meq/L 136-145 POTASSIUM (BEAKER) (test code = 379) 5.4 meq/L 3.5-5.1 H Specimen moderately hemolyzed CHLORIDE (BEAKER) (test code = 382) 110 meq/L 98-107 H CO2 (BEAKER) (test code = 355) 19 meq/L 22-29 L BLOOD UREA NITROGEN (BEAKER) (test code = 354) 15 mg/dL 7-21 CREATININE (BEAKER) (test code = 358) 0.78 mg/dL 0.57-1.25 Specimen moderately hemolyzed GLUCOSE RANDOM (BEAKER) (test code = 652) 114 mg/dL 70-105 H CALCIUM (BEAKER) (test code = 697) 8.7 mg/dL 8.4-10.2 EGFR (BEAKER) (test code = 1092) 77 mL/min/1.73 sq m ESTIMATED GFR IS NOT ACCURATE CREATININE CLEARANCE IN PREDICTING GLOMERULAR FILTRATION RATE. ESTIMATED GFR IS NOT APPLICABLE FOR DIALYSIS PATIENTS. CBC W/PLT COUNT & AUTO [id number] 09:29:00* Test Item Value Reference Range Interpretation Comments WHITE BLOOD CELL COUNT (BEAKER) (test code = 775) 5.5 K/ L 4.0- 10.0 RED BLOOD CELL COUNT (BEAKER) (test code = 761) 3.79 M/ L 4.00-5 .00 L HEMOGLOBIN (BEAKER) (test code = 410) 12.5 GM/DL 12.0-15.0 HEMATOCRIT (BEAKER) (test code = 411) 35.5 % 36.0-45.0 L MEAN CORPUSCULAR VOLUME (BEAKER) (test code = 753) 93.7 fL 82. 0-99.0 MEAN CORPUSCULAR HEMOGLOBIN (BEAKER) (test code = 751) 33.1 pg 27.0-33.0 H MEAN CORPUSCULAR HEMOGLOBIN CONC (BEAKER) (test code = 752) 35.3 GM/DL 32.0-36.0 RED CELL DISTRIBUTION WIDTH (BEAKER) (test code = 412) 14.1 % 10.3-14.2 PLATELET COUNT (BEAKER) (test code = 756) 287 K/CU MM 150-430 MEAN PLATELET VOLUME (BEAKER) (test code = 754) 7.3 fL 6.5-10 .5 NUCLEATED RED BLOOD CELLS (BEAKER) (test code = 413) 0 /100 WBC 0 -0 NEUTROPHILS RELATIVE PERCENT (BEAKER) (test code = 429) 30 % LYMPHOCYTES RELATIVE PERCENT (BEAKER) (test code = 430) 57 % MONOCYTES RELATIVE PERCENT (BEAKER) (test code = 431) 7 % EOSINOPHILS RELATIVE PERCENT (BEAKER) (test code = 432) 5 % BASOPHILS RELATIVE PERCENT (BEAKER) (test code = 437) 1 % NEUTROPHILS ABSOLUTE COUNT (BEAKER) (test code = 670) 1.66 K/ L 1.80-8.00 L LYMPHOCYTES ABSOLUTE COUNT (BEAKER) (test code = 414) 3.17 K/ L 1.48-4.50 MONOCYTES ABSOLUTE COUNT (BEAKER) (test code = 415) 0.39 K/ L 0. 00-1.30 EOSINOPHILS ABSOLUTE COUNT (BEAKER) (test code = 416) 0.26 K/ L 0.00-0.50 BASOPHILS ABSOLUTE COUNT (BEAKER) (test code = 417) 0.05 K/ L 0. 00-0.20 0.00(MANUAL DIFFERENTIAL)2016-06-01 09:29:00* Test Item Value Reference Range Interpretation Comments TOTAL COUNTED (BEAKER) (test code = 1351) PLT MORPHOLOGY (BEAKER) (test code = 486) Normal ATYPICAL LYMPHS(BEAKER) (test code = 1678) Present ANISOCYTOSIS (BEAKER) (test code = 961) 2+ moderate POIKILOCYTES (BEAKER) (test code = 966) 2+ moderate POLYCHROMATOPHILLIC RBCS(BEAKER) (test code = 478) 1+ few TARGET CELLS (BEAKER) (test code = 480) 2+ moderate BASIC METABOLIC [id number] 08:39:00* Test Item Value Reference Range Interpretation Comments SODIUM (BEAKER) (test code = 381) 139 meq/L 136-145 POTASSIUM (BEAKER) (test code = 379) 3.9 meq/L 3.5-5.1 CHLORIDE (BEAKER) (test code = 382) 110 meq/L 98-107 H CO2 (BEAKER) (test code = 355) 20 meq/L 22-29 L BLOOD UREA NITROGEN (BEAKER) (test code = 354) 14 mg/dL 7-21 CREATININE (BEAKER) (test code = 358) 0.76 mg/dL 0.57-1.25 GLUCOSE RANDOM (BEAKER) (test code = 652) 79 mg/dL 70-105 CALCIUM (BEAKER) (test code = 697) 8.7 mg/dL 8.4-10.2 EGFR (BEAKER) (test code = 1092) 79 mL/min/1.73 sq m ESTIMATED GFR IS NOT ACCURATE CREATININE CLEARANCE IN PREDICTING GLOMERULAR FILTRATION RATE. ESTIMATED GFR IS NOT APPLICABLE FOR DIALYSIS PATIENTS. T4, [id number] 15:06:00* Test Item Value Reference Range Interpretation Comments FREE T4 (BEAKER) (test code = 655) 1.26 ng/dL 0.70-1.48 TSH/FREE T4 IF [id number] 14:38:00* Test Item Value Reference Range Interpretation Comments THYROID STIMULATING HORMONE (BEAKER) (test code = 772) 0.22 uIU/mL 0.35-4.94 L [id number] 14:14:00* Test Item Value Reference Range Interpretation Comments LIPASE (BEAKER) (test code = 749) 11 U/L 8-78 [id number] 14:14:00* Test Item Value Reference Range Interpretation Comments AMYLASE (BEAKER) (test code = 349) 43 U/L 25-125 HEPATIC FUNCTION [id number] 14:14:00* Test Item Value Reference Range Interpretation Comments TOTAL PROTEIN (BEAKER) (test code = 770) 5.6 gm/dL 6.0-8.3 L ALBUMIN (BEAKER) (test code = 1145) 3.5 g/dL 3.5-5.0 BILIRUBIN TOTAL (BEAKER) (test code = 377) 1.2 mg/dL 0.2-1.2 BILIRUBIN DIRECT (BEAKER) (test code = 706) 0.4 mg/dL 0.1-0.5 ALKALINE PHOSPHATASE (BEAKER) (test code = 346) 87 U/L 40-150 AST (SGOT) (BEAKER) (test code = 353) 33 U/L 5-34 ALT (SGPT) (BEAKER) (test code = 347) 30 U/L 6-55 TROPONIN [id number] 07:12:00* Test Item Value Reference Range Interpretation Comments TROPONIN I (BEAKER) (test code = 397) 0.01 ng/mL 0.00-0.03 Effective 02/20/2014: Reference Range ChangeNew: 0.00-0.03 Previous 0.00-0.15T roponin I (TnI) levels must be interpreted in the context of the presenting symp toms and the clinical findings. Elevated TnI levels indicate myocardial damage, but are not specific for ischemic heart disease. Elevated TnI levels are seen in patients with other cardiac conditions (including myocarditis and congestive he art failure), and slight TnI elevations occur in patients with other conditions, including sepsis, renal failure, acidosis, acute neurological disease, and pers istent tachyarrhythmia.TROPONIN [id number] 01:13:00* Test Item Value Reference Range Interpretation Comments TROPONIN I (BEAKER) (test code = 397) < ng/mL 0.00-0.03 Effective 02/20/2014: Reference Range ChangeNew: 0.00-0.03 Previous 0.00-0.15T roponin I (TnI) levels must be interpreted in the context of the presenting symp toms and the clinical findings. Elevated TnI levels indicate myocardial damage, but are not specific for ischemic heart disease. Elevated TnI levels are seen in patients with other cardiac conditions (including myocarditis and congestive he art failure), and slight TnI elevations occur in patients with other conditions, including sepsis, renal failure, acidosis, acute neurological disease, and pers istent tachyarrhythmia.BASIC METABOLIC [id number] 18:25:00* Test Item Value Reference Range Interpretation Comments SODIUM (BEAKER) (test code = 381) 143 meq/L 136-145 POTASSIUM (BEAKER) (test code = 379) 4.2 meq/L 3.5-5.1 CHLORIDE (BEAKER) (test code = 382) 111 meq/L 98-107 H CO2 (BEAKER) (test code = 355) 20 meq/L 22-29 L BLOOD UREA NITROGEN (BEAKER) (test code = 354) 14 mg/dL 7-21 CREATININE (BEAKER) (test code = 358) 0.86 mg/dL 0.57-1.25 GLUCOSE RANDOM (BEAKER) (test code = 652) 84 mg/dL 70-105 CALCIUM (BEAKER) (test code = 697) 9.3 mg/dL 8.4-10.2 EGFR (BEAKER) (test code = 1092) 69 mL/min/1.73 sq m INSUFFICIENT CLINICAL DATA TO CALCULATE ESTIMATED GFR. CREATINE KINASE (CK), TOTAL AND [id number] 18:22:00* Test Item Value Reference Range Interpretation Comments CREATINE KINASE TOTAL (BEAKER) (test code = 380) 95 U/L 29-20 0 CREATINE KINASE-MB (BEAKER) (test code = 750) 1.7 ng/mL 0.0-6.6 CREATINE KINASE-MB INDEX (BEAKER) (test code = 395) 1.8 % Effective 02/20/2014: CK-MB Reference Range ChangeNew: 0.0-6.6 Previous: 0.0- 4.9CK-MB Reference Range:<6.7 Normal6.7-10.0 Borderline>10.0 Abnormal TROPONIN [id number] 18:22:00* Test Item Value Reference Range Interpretation Comments TROPONIN I (BEAKER) (test code = 397) < ng/mL 0.00-0.03 Effective 02/20/2014: Reference Range ChangeNew: 0.00-0.03 Previous 0.00-0.15T roponin I (TnI) levels must be interpreted in the context of the presenting symp toms and the clinical findings. Elevated TnI levels indicate myocardial damage, but are not specific for ischemic heart disease. Elevated TnI levels are seen in patients with other cardiac conditions (including myocarditis and congestive he art failure), and slight TnI elevations occur in patients with other conditions, including sepsis, renal failure, acidosis, acute neurological disease, and pers istent tachyarrhythmia.B-TYPE NATRIURETIC FACTOR (BNP)2016-05-30 18:22:00* Test Item Value Reference Range Interpretation Comments B-TYPE NATRIURETIC PEPTIDE (BEAKER) (test code = 700) 27 pg/mL 0-100 PT/[id number] 18:05:00* Test Item Value Reference Range Interpretation Comments PROTIME (BEAKER) (test code = 759) 11.9 seconds 11.7-14.7 INR (BEAKER) (test code = 370) 0.9 <=5.9 PARTIAL THROMBOPLASTIN TIME (BEAKER) (test code = 760) 24.1 seconds 22.5-36.0 RECOMMENDED COUMADIN/WARFARIN INR THERAPY RANGESSTANDARD DOSE: 2.0 - 3.0 Inclu zach: PROPHYLAXIS for venous thrombosis, systemic embolization; TREATMENT for billie ous thrombosis and/or pulmonary embolus.HIGH RISK: Target INR is 2.5-3.5 for pat ients with mechanical heart valves.CBC W/PLT COUNT & AUTO [id number] 18:00:00* Test Item Value Reference Range Interpretation Comments WHITE BLOOD CELL COUNT (BEAKER) (test code = 775) 10.7 K/ L 4.0- 10.0 H RED BLOOD CELL COUNT (BEAKER) (test code = 761) 4.70 M/ L 4.00-5 .00 HEMOGLOBIN (BEAKER) (test code = 410) 15.0 GM/DL 12.0-15.0 HEMATOCRIT (BEAKER) (test code = 411) 44.1 % 36.0-45.0 MEAN CORPUSCULAR VOLUME (BEAKER) (test code = 753) 93.9 fL 82. 0-99.0 MEAN CORPUSCULAR HEMOGLOBIN (BEAKER) (test code = 751) 31.9 pg 27.0-33.0 MEAN CORPUSCULAR HEMOGLOBIN CONC (BEAKER) (test code = 752) 34.0 GM/DL 32.0-36.0 RED CELL DISTRIBUTION WIDTH (BEAKER) (test code = 412) 13.9 % 10.3-14.2 PLATELET COUNT (BEAKER) (test code = 756) 395 K/CU MM 150-430 MEAN PLATELET VOLUME (BEAKER) (test code = 754) 6.5 fL 6.5-10 .5 NUCLEATED RED BLOOD CELLS (BEAKER) (test code = 413) 0 /100 WBC 0 -0 NEUTROPHILS RELATIVE PERCENT (BEAKER) (test code = 429) 52 % LYMPHOCYTES RELATIVE PERCENT (BEAKER) (test code = 430) 40 % MONOCYTES RELATIVE PERCENT (BEAKER) (test code = 431) 6 % EOSINOPHILS RELATIVE PERCENT (BEAKER) (test code = 432) 1 % BASOPHILS RELATIVE PERCENT (BEAKER) (test code = 437) 1 % NEUTROPHILS ABSOLUTE COUNT (BEAKER) (test code = 670) 5.53 K/ L 1.80-8.00 LYMPHOCYTES ABSOLUTE COUNT (BEAKER) (test code = 414) 4.30 K/ L 1.48-4.50 MONOCYTES ABSOLUTE COUNT (BEAKER) (test code = 415) 0.64 K/ L 0. 00-1.30 EOSINOPHILS ABSOLUTE COUNT (BEAKER) (test code = 416) 0.12 K/ L 0.00-0.50 BASOPHILS ABSOLUTE COUNT (BEAKER) (test code = 417) 0.13 K/ L 0. 00-0.20 0.00CARDIAC [id number] 17:27:0063MH [facility] SUJTTUU3606-99-50 17:27:00<0.02MH [facility] OMPZFAA0740-70-98 06:58:0027MH [facility] SDSTLOY5472-09-50 06:58:00<0.02MH [facility] ICDYFCM9739-08-22 06:58:000.7 [facility] AUEVWXB6633-46-28 06:58:0087MH [facility] ENZYMES 2016-04-12 06:58:000.8 [facility] GBNCC8234-55-42 06:58:61435XQ [facility] VVYIS5219-84-80 06:58:0099MH [facility] XLVAA7778-46-08 06:58:000.69 [facility] AQMVG0690-76-73 06:58:16387YZ [facility] DBYRR1885-76-18 06:58:0096MH [facility] JYOPM5485-81-98 06:58:0022MH [facility] PANEL 2016-04-12 06:58:74504KL [facility] MMEUA9291-43-98 06:58:0087MH [facility] AOVHA1964-21-02 06:58:004.3MH [facility] XCNMY9949-25-11 06:58:0021MH [facility] ETQSU2845-95-81 06:58:000.4MH [facility] PMBNY7097-66-77 06:58:0022MH [facility] LNDCB2633-55-90 06:58:008.8 [facility] PANEL 2016-04-12 06:58:006.6MH [facility] BZPQE7695-02-89 06:58:0032MH [facility] ZYKTY8738-72-30 06:58:0012.3MH [facility] AHRWM3965-98-31 06:58:003.4 [facility] XYLGA6750-10-77 06:58:000.9 [facility] LMEYU8308-80-11 06:58:003.2MH [facility] HKQZU2391-87-38 06:58:0024 [facility] 2016-04-12 06:58:00* Test Item Value Reference Range Interpretation Comments PT (test code = PT) 12.1 s 12.0-14.7 PmipqgyhqLYZVJIQJJQ2757-23-85 06:58:000.88 GusakupkqUEDWBTDHOM4561-00-76 06:58:00* Test Item Value Reference Range Interpretation Comments PTT (test code = PTT) 25.1 s 22.9-35.8 NbreopgsjIFIJUQALMC8509-88-24 06:35:67512CO OkorxmkuoWDKGPLDHRB5247-70-29 06:35:008.0 PqhbrntarAKZZNKYMVW3454-85-25 06:35:0034.0 [facility] 2016-04-12 06:35:0014.9 EficdoobmGONHJDAANA9665-40-53 06:35:00* Test Item Value Reference Range Interpretation Comments MCH (test code = MCH) 31.9 pg 27.0-31.0 QxsbcitywDZUWSOSXDH1168-26-58 06:35:0036.7 JzbswfpwnGUROMGNEQF2350-34-18 06:35:0093.8 NccbhpxuqKFQXIKBMYW5448-52-29 06:35:008.8 [facility] 2016-04-12 06:35:0012.5 CnfauzaytJKAYAXTNIZ4378-81-54 06:35:003.92 [facility] KBXXYPGLAY7530-32-52 06:35:004.7 KqputtnfdZOICDFUMTK2489-42-47 06:35:000.6M RzrnhjdypUNYPKESSOZ3291-49-13 06:35:000.3M DpzmltnyiWNHZNDTECP6394-35-19 06:35:000.2M OvqkljjjvIWSEDFXNBK5564-37-25 06:[facility]0034.8[facility] 06:35:003.1M SzcpdklxfBYRZKNGYBW1344-11-69 06:35:006.9[facility] FPQCGEYNQT2792-09-22 06:35:001.7 FgmuwcapqEXPVMOXUXG0007-95-76 06:35:0053.2M WnzunffryTBOXJSMPEL6829-67-22 06:35:003.4[facility] PHZKJB2584[facility]77-45 06:13:00See Note (04/12/16 12:13 AM) [facility] EBLIBF9418-79-50 06:13:00 Negative *NA*(04/12/16 12:13 AM) [facility] MUCVIU8841-25-42 06:13:00Negative *NA*(04/12/16 12:13 AM) [facility] OXJSXF1381-77-13 06:13:00Negative *NA*(04/12/16 12:13 AM) [facility] GIOTAO1713-94-05 06:13:00Positive *ABN*(04/12/16 12:13 AM) [facility] WJGJZG5274-57-73 06:13:00Positive *ABN*(04/12/16 12:13 AM) [facility] MXTHKF6237-16-33 06:13:00Negative *NA*(04/12/16 12:13 AM) [facility] IRTDPI0691-22-00 06:13:00Negative *NA*(04/12/16 12:13 AM) [facility] PAFAW2922-73-22 06:13:00Negative *NA*(04/12/16 12:13 AM) [facility] NEDSB4026-72-11 06:13:00Negative (04/12/16 12:13 AM) [facility] WJDYL8933-19-55 06:13:00Negative (04/12/16 12:13 AM)MH [facility] LQLEN9100-02-09 06:13:004MH [facility] JWFTR5113-28-66 06:13:00Trace *ABN*(04/12/16 12:13 AM)[facility] STOOL 2016-04-12 06:13:002MH [facility] BCQTG5722-60-19 06:13:006.0MH [facility] LGZJO7710-10-36 06:13:001.020MH [facility] STOOL 2016-04-12 06:13:00Clear (04/12/16 12:13 AM) [facility] LBGWYNX1970-82-33 10:52:0089 [facility] WCJEAPB0596-86-99 10:52:00<0.02MH [facility] TUVJUND8801-94-94 10:52:001.5 [facility] SOUBZZQ4576-54-70 10:52:001.3MH [facility] CRRVO8587-46-89 10:52:0099MH [facility] ZMKPB3421-84-48 10:52:0012MH [facility] RQWFN0898-04-50 10:52:000.7 [facility] PANEL 2014-12-08 10:52:17224KM [facility] RBMFC5600-08-79 10:52:11963DZ [facility] FKLSR5557-98-54 10:52:004.0 [facility] JDUMS6661-53-41 10:52:0021MH [facility] XAJLP1404-98-10 10:52:05991DG [facility] TIKFG6000-56-02 10:52:008.7 [facility] BXLWZ0890-15-34 10:52:0013.0 [facility] 2014-12-08 10:52:93733DE SlhdvbzhfQSNWMZNMJK0265-97-68 10:52:0016.5[facility] PPMOEQTYGJ1024-86-00 10:52:007.9 IcgmpzamaJUZHCANWLL7719-85-57 10:52:0038.0 NykcklgipLBFQSGJWLE9242-06-60 10:52:0082.9 FretvytmgVEADCTGBMU3273-71-81 10:52:00* Test Item Value Reference Range Interpretation Comments MCH (test code = MCH) 27.0 pg 27.0-31.0 VjplclobzJUGKHYUWCA9141-61-18 10:52:0032.6MH GshtfyrwpUYNBSMIWEI3099-81-52 10:52:006.0MH UyauwcgrkGYNVJCQDFX3733-44-99 10:52:004.59MH [facility] 2014-12-08 10:52:0012.4MH BbhumwamfWZXJCUXIMF8210-12-93 10:52:002.5MH [facility] ZMDKKYLIUO5809-53-28 10:52:002.5MH IlkjkfqilCKBBZUMGUH9311-08-65 10:52:000.3MH OztdefunyHJUGUHVVKQ9472-82-52 10:52:000.6MH UmyujeirgEOUXCTDEAW9563-28-51 10:52:000.1MH AowrayjofBJDBDWSYRG6837-80-25 10:52:0042.1MH [facility] 2014-12-08 10:52:0010.5MH NdanjcnhwCPQTMEYBTP5209-21-51 10:52:001.1MH [facility] BQSCWBMXXH6095-05-34 10:52:004.2MH HpmkzlxxvQIQRNIINDF1488-35-73 10:52:0042.1MH CnybmddvhUNDIMY3273-48-04 10:52:0031 YppnzrobaMBUKVX0272-02-42 10:52:63566MA UmoiuwafnLJPGFI2407-35-95 10:52:0043 KocvcsaxsGMQQDI9509-89-56 10:52:82461HY GiwmorprcWUOCOE9723-79-77 10:52:91123LM QygpcprjiGNKODF3152-66-89 10:52:006.70MH [facility] GYKZXEE4419-11-33 02:43:00<0.02MH [facility] TTJCK4934-68-28 02:43:0064 [facility] BUWVZJX6874-52-19 01:57:258MH [facility] TQSZHKB7535-27-34 22:48:00<0.02 [facility] YYJXYUO8817-62-87 22:48:000.9 [facility] DMSYGPA3029-39-08 22:48:001.1MH [facility] ENZYMES 2014-12-07 22:48:77018NO [facility] QSMZN1003-92-05 22:48:003.6MH [facility] BEEAH0153-64-64 22:48:0064 [facility] ETYZI6461-37-17 22:48:001.0 [facility] FPBIP8647-54-25 22:48:009.4 [facility] WECLG6462-08-14 22:48:000.9 [facility] GEWLO2485-34-58 22:48:004.1MH [facility] PANEL 2014-12-07 22:48:007.7 [facility] OSFDF4242-93-04 22:48:000.5MH [facility] MQDTN2349-92-57 22:48:43765RY [facility] JBUHY6530-02-29 22:48:004.1MH [facility] OZEYM8569-68-36 22:48:02955PR [facility] DZKVC4687-44-49 22:48:0031 [facility] XREOK8222-82-63 22:48:0055 [facility] PANEL 2014-12-07 22:48:0014 [facility] YXCLB7282-39-05 22:48:0014 [facility] YETTE3671-54-11 22:48:0097 [facility] PTNBC5652-86-57 22:48:0012.1M [facility] KQWFF8571-95-92 22:48:0025 [facility] AOHFP8625-36-60 22:48:42330AA SkzjkbuphGBMIWXYMTC1058-41-68 22:48:00* Test Item Value Reference Range Interpretation Comments PTT (test code = PTT) 29.0 s 22.9-35.8 ZrpvghndaGEBNZVAXFQ4089-80-14 22:48:00* Test Item Value Reference Range Interpretation Comments PT (test code = PT) 13.5 s 12.0-14.7 MulqejuniWLJGKMEPCO3078-58-56 22:48:001.00 OkloifhytZWMKDBSMEZ2793-57-22 22:48:003.1M XyuukvujaQNKMIQSKCQ5948-83-33 22:48:000.1M [facility] 2014-12-07 22:48:000.6M CfgeugcciYBCYFZBBXQ6319-81-63 22:48:002.7[facility] QFLPQVLMAO0920-66-32 22:48:000.6M OtvivfoefBGAXUXUKVZ8453-00-92 22:48:009.1M XhziutootJCMPFGHGOJ2378-20-68 22:48:002.2M XtgepuzxzYUVWJMPMRN7860-18-71 22:48:0041.1MH LowgsgpmeZCFBOZQQQL7624-43-03 22:48:0047.0 [facility] 2014-12-07 22:48:008.0 IwwpkljlzOWXWKIEBHE0336-84-61 22:48:0032.5[facility] XNALTTTBPN5136-89-58 22:48:0016.5 VpgxgclidWHAMXTXRQK5499-01-79 22:48:50238FZ UrrbqyuwyKAZPZAGEWF2048-25-67 22:48:0038.9 IywfcpdtmEDPORGZUHY8815-05-75 22:48:0082.8 JedfgsampVKQJDDNODS3437-88-15 22:48:00* Test Item Value Reference Range Interpretation Comments MCH (test code = MCH) 26.9 pg 27.0-31.0 ZgjenxoukXAOKTCGSBK4447-95-30 22:48:006.6M PffvmdzzgNYGWJEVLIN2203-27-07 22:48:004.70 KljnhvyekWULCBTIJMF3343-64-52 22:48:0012.6M [facility] CMVSEIWVDTQD7254-46-54 10:15:0013.1M HryutgauiHPPVYKWKXXKG4932-56-02 10:15:00 106 KhnoedpnjAFMPUJCQUTMM3084-43-02 10:15:0018 [facility]ELECTROLYTES 2014-11-30 10:15:0024 GwpsjyehfOZAXSTBQCAHJ0749-72-98 10:15:09614ZB [facility] XJDIWZLVGRXX3896-91-17 10:15:58786LD UpobelxduQZMQZMXTZSIJ5793-25-94 10:15:004.1 TltotcvxfWOAWOGKYKGQM8759-74-27 10:15:0073 UhpwlvfomHWHHEWUDWGNR1777-05-81 10:15:000.9 TgqfciuueYWDLYZIAPAHY9551-31-90 10:15:008.6M [facility] 2014-11-30 10:15:000.3MH GtwisroqaZBSFLBKAJT6211-09-52 10:15:000.4[facility] UDRUXONXRH2326-37-80 10:15:002.9 YjstnmwkbFWUNFCNYNR6314-84-49 10:15:000.6MH GzjyomykjQTGULOYDHB5029-04-47 10:15:005.0 HdoptbaiwDUUXUNMWWN4546-57-31 10:15:002.0 VyrrgnfewIHVDVGFQPT7491-31-29 10:15:0032.0 [facility] 2014-[facility]30 10:15:0046.7 NawrzvvdrYPKBXWJMGO0594-43-89 [facility] OASWTGNQAG4270-17-78 10:15:006.1M AxxtysdfhJESEAZULOG5736-28-33 10:15:008.0 GnfirscnhVOUOEZKUAC1303-08-24 10:15:0016.1M AjmftvoysHKGVVIYDRV4232-11-74 10:15:27038IC QzgizkqybAMQBRPWGFP9728-57-53 10:15:00* Test Item Value Reference Range Interpretation Comments MCH (test code = MCH) 28.3 pg 27.0-31.0 MlmhbiezrOYXEWSCPYG2662-62-16 10:15:0033.8 SjrmjsyfkDDQGEPJUUG3575-93-55 10:15:0083.7[facility]yaczrysjOOLNBNBIPB1978-24-99 10:15:0033.9[facility] 2014-[facility]-30 10:15:004.05 WqpxvqummUIBIULELQW5205-52-62 10:15:0011.5[facility] DLLKQINXQY1025-36-60 10:15:006.1M [facility] IPYHF1133-29-45 09:33:0073MH [facility] NQRLD9240-23-78 09:33:0013MH [facility] QQOXS7775-19-21 09:33:0026MH [facility] COSBP0438-95-71 09:33:000.9MH [facility] PANEL 2014-11-28 09:33:07829BT [facility] OLFGM7404-05-85 09:33:008.8MH [facility] AMDEC7780-13-73 09:33:11204BV [facility] TYLJQ1306-70-52 09:33:003.7 [facility] SVYKF0163-30-07 09:33:27420CP [facility] LPWZM8506-92-83 09:33:0014.7 [facility] XFPQA5870-90-24 09:33:000.3MH [facility] 2014-11-28 09:33:000.4 [facility] UHSFP8876-71-82 09:33:000.1MH [facility] YVDLU8090-61-48 09:33:0026MH [facility] FNCYA1855-34-82 09:33:45270BK [facility] RWVPO2903-45-94 09:33:003.0 [facility] QVSJR1871-33-13 09:33:001.0 [facility] UFYHC3008-19-68 09:33:005.9 [facility] PAN[facility] 2014-11-28 09:33:002.9 [facility] IUUVK9956-62-81 09:33:0049MH [facility] LQWRPUQVVM3862-58-71 09:33:007.7 ZrkapzdrgSXIQUFOSQK6607-64-38 09:33:0036.5 ImwvbrdaaQDKICVDSGL3463-65-16 09:33:0012.5 VzgtckpuzRHCMLISPZX1283-04-04 09:33:004.47 FijilwdpzYUZEVOAYNY3847-83-00 09:33:21742GX [facility] 2014-11-28 09:33:0016.0 UrzznshrhWYPDGEHZCN8839-50-26 09:33:0034.3M [facility] UXSFASYARE2707-80-72 09:33:00* Test Item Value Reference Range Interpretation Comments MCH (test code = MCH) 28.0 pg 27.0-31.0 CyjleiygePOCROCYYSJ4109-89-16 09:33:0081.7 MrtfvfsevWYQHPYFBKP7424-71-91 09:33:005.9 AwoaqbhgiMEJNIWLJKQ7759-87-11 09:33:0010.2MH [facility] 2014-11-28 09:33:0036.4 UbohqpgsmFEZXROONRW3174-61-57 09:33:0045.5 [facility] CEMUQCEGWL4214-42-57 09:33:000.1MH OpuudxibiNYQQDZPXGA7743-87-20 09:33:000.3MH ReekvjgpxCUIGMMTIUT2184-57-39 09:33:000.6MH LxumiinexRXKTWEYUKN8818-03-18 09:33:002.2M EhkupzfpeADRGRNNLQL5026-22-71 09:33:002.7 [facility] 2014-11-28 09:33:002.5 QpsbcpmgrBXDJWVMFKV4778-83-68 09:33:005.4 [facility] LTEYX3212-59-32 08:31:24873II JtefhbpbhIUQGUSZIZBYJ4231-67-54 08:31:52535UC FhsfoiufjRAPOBUTDFKXY2032-32-29 08:31:003.5 UjnftxvckMCUPLUXXYJEL3765-33-24 08:31:56499BN SrbiuzqxjSAUAYIPXCKSB0858-98-04 08:31:0084 [facility] 2014-11-25 08:31:003.1MH RhrwfikxyJUKWRFKWBYIL9192-02-89 08:31:87241VJ [facility] HPDEBYEPFBBF2774-94-44 08:31:000.5 KzbbweixfUDRZNWEVBZFA5594-52-70 08:31:0095 MnfggptyrOTKWVGWRFOJM0171-41-99 08:31:0063 YyjuhkyceXIBAVEPFMBON3378-19-90 08:31:0089 WrwhfogsaFIMINEXUBQKV2459-40-55 08:31:009MH [facility] 2014-11-25 08:31:000.8 IwgocvhpwOIUUZHDFZKEK8608-76-29 08:31:006.6MH [facility] RWVTGICRJKTU1697-82-73 08:31:0021 VyblorqpvVNNKCLODOJJX9118-80-04 08:31:008.4 XxgkfdwyeHFQKPYBHWNKB0835-77-41 08:31:000.9 JilooiuwfDNQIJSZQUVHW8278-34-98 08:31:0013.5 OwppxtqazBMNMVIRWLBQR3429-76-56 08:31:0011 [facility] KSMUFUHRTDYA5681-39-30 08:31:003.5 CcrpvjxdrKXKCONPRTL2817-70-77 08:31:005.9 UxcpkwktzKYWEFUDZOE4838-09-59 08:31:0082.2MH DgmzevocsHIHHPWDFXQ3832-85-64 08:31:004.42 QscxfaxbcDHUFBGYKME6179-02-32 08:31:0036.3M [facility] 2014-11-25 08:31:0012.3MH FsszfpcxzOBDJSUMZVH2576-72-18 08:31:007.9 [facility] MKFTTYKRMM0932-10-31 08:31:0033.8 IhojnolfhGQOLBZGEWK2950-93-28 08:31:00* Test Item Value Reference Range Interpretation Comments MCH (test code = MCH) 27.8 pg 27.0-31.0 HczcxtjejGYAEIYPLSS1473-99-74 08:31:18528QY YumldovpaOUJIPGPLEJ4641-76-68 08:31:0016.0 HyygyfjquNIXBSMRBFI0914-64-98 08:31:003.1M [facility] 2014-11-25 08:31:001.9 GsxflhcidIRMUFQHDMQ2921-00-92 08:31:000.3MH [facility] CXZLTFPIMN3458-14-90 08:31:000.1MH XfponysvkBEWZUCTXUA5062-02-56 08:31:000.4 DhmnfeagbPFWOXNFWBD0712-29-71 08:31:007.1M WqfelyanbJOPFVYNHBZ0630-59-91 08:31:0053.4 SdbyssfqzMXZZTSWCQP2053-62-79 08:31:002.1M [facility] 2014-11-25 08:31:004.6MH IkmiwyntaZCGVFTMOJM9280-81-80 08:31:0032.8 [facility] GFAQT9607-44-07 00:47:001.9 [facility] XGAHW1105-20-52 00:47:0050 [facility] MIZUL3653-55-81 00:47:86595DY [facility] DCNTG3951-89-96 00:47:003.4 [facility] UNMGZ3187-52-39 00:47:0012 [facility] PANEL 2014-11-25 00:47:000.9 [facility] QZSYD2036-78-31 00:47:000.6MH [facility] LBEFX6027-66-55 00:47:22755CP [facility] ZGEFZ6428-01-72 00:47:0083 [facility] YZQXO5008-16-00 00:47:003.2MH [facility] NJLEL3997-55-85 00:47:03951PD [facility] DPIKG9103-45-88 00:47:006.6MH [facility] HZKLU6213-18-23 04:47:001MH [facility] HDSLQ9496-10-67 04:47:00Clear (11/23/14 11:47 PM)MH [facility] TZVTL2969-27-34 04:47:001.023MH [facility] AND [id number] 04:47:00Yellow *NA*(11/23/14 11:47 PM)[facility] IVLIT9111-28-07 04:47:00Negative *NA*(11/23/14 11:47 PM)[facility] DQJKW6839-64-56 04:47:005.0 [facility] STOOL 2014 04:47:0012 [facility] BHBBE1018-74-47 04:47:00Trace *ABN*(11/23/14 11:47 PM)[facility] OLLCD8167-12-93 04:47:00Negative (11/23/14 11:47 PM)[facility] XVNRO9224-56-89 04:47:00Negative (11/23/14 11:47 PM) [facility] JRMBRYK1647-79-80 01:15:001.0 [facility] XJTOOPR3222-56-72 01:15:000.8 [facility] JLTMOSI6663-40-60 01:15:0081 [facility] WCUQRKM8789-82-28 01:15:00<0.02 [facility] FGLMT6895-29-17 01:15:001.0 [facility] QKPJW0088-11-38 01:15:48422KC [facility] QTLQB6252-55-84 01:15:0086 AdanxlbrbNIEROKDJGC0469-72-27 20:06:000.91 OxmesqetfBIQYTUEBKV1063-76-24 20:06:00* Test Item Value Reference Range Interpretation Comments PT (test code = PT) 12.2 s 12.0-14.7 VgtpqvyryZFFVHXPHML3616-22-24 20:06:00* Test Item Value Reference Range Interpretation Comments PTT (test code = PTT) 29.7 s 22.9-35.8 [facility] USNDIYM1168-02-14 19:19:009 [facility] ENZYMES 2014-11-23 19:19:00<0.02 [facility] BETPAMQ7284-11-05 19:19:0077 [facility] XFAAPWX4585-17-33 19:19:000.9 [facility] ENZYMES 2014-11-23 19:19:001.2MH [facility] FBKUE8860-46-21 19:19:001.7 [facility] UQKLX6280-87-04 19:19:0019 [facility] LVOUYWJ8689-25-61 15:02:0067 [facility] AHPVGBE1196-70-06 15:02:00<0.02 [facility] ENZYMES 2014-09-18 10:33:0062MH [facility] QQAZBAP9468-67-77 10:33:00<0.02MH DyyjajmazGBIPSZ5013-17-48 10:33:0029MH JovvsjnewFWWMSG0017-74-66 10:33:40287OU IjydxgaywMKNTRF4643-09-18 10:33:05356HM DbrdefigzTMGSGY5509-15-00 10:33:003.86MH CpnwfmyqoAGDHBK8495-66-71 10:33:47869JD VtlfzfrdkKCDRSC3510-50-42 10:33:0059MH [facility] OMRJMCL1081-50-86 04:21:00<0.02[facility] ENZYMES 2014-09-18 04:21:0059MH [facility] LMHCM0925-89-06 04:21:0085MH [facility] YOAPJ9413-13-48 04:21:000.8[facility] TBVRY4470-50-28 04:21:003.6[facility] LLVRW3021-72-20 04:21:79076EG [facility] BOHOL1801-03-46 04:21:41831LR [facility] QBTLY5273-72-53 04:21:008.6[facility] PANEL 2014-09-18 04:21:0019MH [facility] ERIGD2532-96-45 04:21:0027MH [facility] XTJWO3851-95-58 04:21:0025MH [facility] ZWFJL2020-52-81 04:21:003.6[facility] EJQNM1695-63-83 04:21:006.8MH [facility] BBJVX8418-01-58 04:21:000.3[facility] TEZMG8458-00-38 04:21:0092MH [facility] PANEL 2014-09-18 04:21:0018MH [facility] NYUUY1970-84-99 04:21:29449FQ [facility] UKZVS8885-63-71 04:21:003.2[facility] PDQBX7141-27-78 04:21:0022MH [facility] DSRTC1187-49-64 04:21:0010.6[facility] KEUWZ6300-26-98 04:21:001.1MH YjbmjwuqiJLRRFSXKZD5378-25-87 04:21:00* Test Item Value Reference Range Interpretation Comments PTT (test code = PTT) 28.8 s 22.9-35.8 TwucywxifGOCXBXDESY5062-85-32 04:21:00* Test Item Value Reference Range Interpretation Comments PT (test code = PT) 12.5 s 12.0-14.7 MngwajmnsRRUJEZFEER3979-67-08 04:21:000.94 WvcurflgbHCHOEYDQLY8637-17-12 04:21:007.4 YjgnfcptpTLHEUVNWVM3545-11-03 04:21:0034.1M [facility] 2014-09-18 04:21:0016.8 XgukopjucLGFFGSYXCD9579-40-32 04:[facility] BTFZJVUGWT8818-43-43 04:21:0011.4 FgpjeocecZKNMHKPNAH8589-89-24 04:21:0083.0 VpagrbfxmZTZZUFXPNG5525-33-29 04:21:00* Test Item Value Reference Range Interpretation Comments MCH (test code = MCH) 28.3 pg 27.0-31.0 CyzcjpkgpOIZQJUWEXM7065-16-98 04:21:0033.4 MaqqypyfxRWGEMCTKQD4666-79-80 04:21:004.03 PlwifrrosOUNBZGXJOV9599-61-41 04:21:007.0 [facility] 2014-09-18 04:21:003.7 GraeseoxgPFZIEAQFLJ7074-80-42 [facility] XJYCETFVEW9174-41-61 04:21:000.1M WqrjgexjlSXGUGSLEQF9491-31-97 04:21:0052.2MH DpewfwqesFPIIQUWNPI3837-45-75 04:21:000.2M UhdpxylirLFGRQQKLIR6448-62-11 04:21:001.8 OcvlkqoqzSROROKGRNA4983-31-39 04:21:002.6M [facility] 2014-09-18 04:21:008.1M VitlxgijbGWAPULCKSQ2827-02-86 04:21:0037.7 [facility]
[2019-08-31] MEDS ORDERED: SODIUM CHLORIDE 0.9% 1000ML 1,000 ML IV STA (11:12)
[2019-08-31] MEDS ORDERED: ASPIRIN 81 MG CHEW TAB PO ONE (11:15)
[2019-08-31] MEDS ORDERED: ONDANSETRON HCL INJ 2MG/ML 2ML 2 MG/ML VIAL IV STA (11:16)
[2019-08-31] MEDS ORDERED: MORPHINE SULFATE INJ 4 MG/ML INJ 1ML IV STA (11:27)
[2019-08-31] MEDS ORDERED: LABETALOL HCL 5 MG/ML 20ML VIAL IV STA (12:51)
[2019-08-31 13:05] LABS: BASOPHILS # (AUTO) 0.1 (0.0-0.1); BASOPHILS % 1.6 % (0.0-1.0); EOSINOPHILS # (AUTO) 0.1 (0.0-0.4); EOSINOPHILS % 1.2 % (0.0-6.0); HEMATOCRIT 41.8 % (34.2-44.1); HEMOGLOBIN 14.5 g/dL (12.0-16.0); LYMPHOCYTES # (AUTO) 1.4 (1.0-3.2); LYMPHOCYTES % 28.3 % (18.0-39.1); MEAN CORPUSCULAR HEMOGLOBIN 32.1 pg (28-32); MEAN CORPUSCULAR HGB CONC 34.7 g/dL (31-35); MEAN CORPUSCULAR VOLUME 92.5 fL (81-99); MONOCYTES # (AUTO) 0.4 (0.2-0.8); MONOCYTES % 8.3 % (4.4-11.3); NEUTROPHILS # (AUTO) 3.1 (2.1-6.9); NEUTROPHILS % 60.2 % (38.7-80.0); PLATELET COUNT 287 x10e3/uL (140-360); RED BLOOD COUNT 4.52 x10e6/uL (3.6-5.1); RED CELL DISTRIBUTION WIDTH 14.1 % (11.7-14.4)
--- NOTE | 2019-08-31 13:12 | Emergency Department Note ---
History of Present Illnes History of Present Illness Chief Complaint: Chest Pain History of Present Illness This is a 58 year old female presents to ED with c/o chest pain radiat ing to left neck with associated SOB and dizziness, onset 2 hrs ago. Pt immediately taken to , EKG performed. Multiple attempts to obtain piv, and obtain blood specimems. Pt Hypertensive upon arrival. Reports hx of 18 stents and CABG 2 years ago. Historian: Patient Arrival Mode: Car Cotton Feeder Required: No Onset (how long ago): hour(s) (1-2 hrs ago) Location: substernal and left chest Quality: pressure Radiation: neck Severity: severe Onset quality: sudden Timing of current episode: constant Progression: waxing and waning Chronicity: new Context: recent illness Relieving factors: none Exacerbating factors: none Associated symptoms: chest pain Treatments prior to arrival: none Past Medical/Family History Physician Review I have reviewed the patient's past medical and family history. Any updates have been documented here. Past Medical History Recent Fever: No Clinical Suspicion of Infectio: No New/Unexplained Change in Ment: No Past Medical History: Hypertension, CHF, CAD, Anxiety, Hyperlipedemia, Chronic Back Pain Other Medical History: HEART DISEASE PER PATIENT 18 STENTS LAST HEART CATH Past Surgical History: Cholecysctectomy, CABG, PCI, Back Surgery Other Surgery: thyroidectomy Social History Smoking Cessation: Current every day smoker Counseling Performed: No Alcohol Use: Social Any Illegal Drug Use: No TB Exposure/Symptoms: No Physically hurt or threatened: No Family History Family history of heart diseas: Yes Other Last Tetanus: UTD Any Pre-Existing Lines (PICC,: No Is patient up to date on immun: Yes Review of Systems Review of Systems Constitutional: no symptoms EENTM: no symptoms Cardiovascular: as per HPI, chest pain Respiratory: no symptoms Gastrointestinal: nausea, vomiting Genitourinary: no symptoms Musculoskeletal: no symptoms Neurological: no symptoms Psychological: no symptoms Endocrine: no symptoms Hematological/Lymphatic: no symptoms Review of other systems All other systems reviewed and negative. Physical Exam Related Data Allergies: Coded Allergies: Penicillins (Verified Allergy, Severe, THROAT SWELLING, 03/11/16) ketorolac tromethamine (Verified Allergy, Mild, RASH, 08/02/11) metoclopramide HCl (Verified Allergy, Mild, JERKY, 08/02/11) prochlorperazine edisylate (Verified Allergy, Mild, RASH, 08/02/11) prochlorperazine maleate (Verified Allergy, Mild, RASH, 08/02/11) Triage Vital Signs Vital Signs Date Time Temp Pulse Resp B/P (MAP) Pulse Ox O2 Delivery O2 Flow Rate FiO2 08/31/19 12:27 98.2 93 18 176/144 100 Physical Exam CONSTITUTIONAL Constitutional: well-developed, well-nourished HENT HENT: normocephalic, atraumatic, oropharynx clear/moist, nose normal HENT L/R: left ext ear normal, right ext ear normal EYES Eyes: PERRL, conjunctivae normal NECK Neck: ROM normal PULMONARY Pulmonary: effort normal, breath sounds normal CARDIOVASCULAR Cardiovascular: regular rhythm, heart sounds normal, capillary refill normal, normal rate GASTROINTESTINAL Abdominal: soft, nontender, bowel sounds normal GENITOURINARY Genitourinary: exam deferred SKIN Skin: warm, dry MUSCULOSKELETAL Musculoskeletal: ROM normal NEUROLOGICAL Neurological: alert, oriented x 3, no gross motor or sensory deficits PSYCHOLOGICAL Psychological: mood/affect normal, judgement normal Results Laboratory Laboratory Laboratory Tests Test 08/31/19 12:34 White Blood Count 5.06 x10e3/uL (4.8-10.8) Red Blood Count 4.52 x10e6/uL (3.6-5.1) Hemoglobin 14.5 g/dL (12.0-16.0) Hematocrit 41.8 % (34.2-44.1) Mean Corpuscular Volume 92.5 fL (81-99) Mean Corpuscular Hemoglobin 32.1 pg (28-32) Mean Corpuscular Hemoglobin Concent 34.7 g/dL (31-35) Red Cell Distribution Width 14.1 % (11.7-14.4) Platelet Count 287 x10e3/uL (140-360) Neutrophils (%) (Auto) 60.2 % (38.7-80.0) Lymphocytes (%) (Auto) 28.3 % (18.0-39.1) Monocytes (%) (Auto) 8.3 % (4.4-11.3) Eosinophils (%) (Auto) 1.2 % (0.0-6.0) Basophils (%) (Auto) 1.6 % (0.0-1.0) Neutrophils # (Auto) 3.1 (2.1-6.9) Lymphocytes # (Auto) 1.4 (1.0-3.2) Monocytes # (Auto) 0.4 (0.2-0.8) Eosinophils # (Auto) 0.1 (0.0-0.4) Basophils # (Auto) 0.1 (0.0-0.1) Absolute Immature Granulocyte (auto 0.02 x10e3/uL (0-0.1) Prothrombin Time 12.0 seconds (11.9-14.5) Prothromb Time International Ratio 0.84 Activated Partial Thromboplast Time 28.3 seconds (23.8-35.5) Sodium Level 140 mmol/L (136-145) Potassium Level 3.7 mmol/L (3.5-5.1) Chloride Level 107 mmol/L (98-107) Carbon Dioxide Level 23 mmol/L (22-29) Anion Gap 13.7 mmol/L (8-16) Blood Urea Nitrogen 13 mg/dL (7-26) Creatinine 0.99 mg/dL (0.57-1.11) Estimat Glomerular Filtration Rate 58 ML/MIN (60-) BUN/Creatinine Ratio 13 (6-25) Glucose Level 98 mg/dL (74-118) Calcium Level 9.5 mg/dL (8.4-10.2) Magnesium Level 1.7 MG/DL (1.3-2.1) Total Bilirubin 0.8 mg/dL (0.2-1.2) Aspartate Amino Transf (AST/SGOT) 19 IU/L (5-34) Alanine Aminotransferase (ALT/SGPT) 14 IU/L (0-55) Alkaline Phosphatase 68 IU/L (40-150) Creatine Kinase 90 IU/L (29-168) Creatine Kinase MB 1.80 ng/mL (0-5.0) Troponin I < 0.001 ng/mL (0-0.300) Total Protein 6.7 g/dL (6.5-8.1) Albumin 3.9 g/dL (3.5-5.0) Globulin 2.8 g/dL (2.3-3.5) Albumin/Globulin Ratio 1.4 (0.8-2.0) Laboratory Tests Test 08/31/19 12:34 White Blood Count 5.06 x10e3/uL (4.8-10.8) Red Blood Count 4.52 x10e6/uL (3.6-5.1) Hemoglobin 14.5 g/dL (12.0-16.0) Hematocrit 41.8 % (34.2-44.1) Mean Corpuscular Volume 92.5 fL (81-99) Mean Corpuscular Hemoglobin 32.1 pg (28-32) Mean Corpuscular Hemoglobin Concent 34.7 g/dL (31-35) Red Cell Distribution Width 14.1 % (11.7-14.4) Platelet Count 287 x10e3/uL (140-360) Neutrophils (%) (Auto) 60.2 % (38.7-80.0) Lymphocytes (%) (Auto) 28.3 % (18.0-39.1) Monocytes (%) (Auto) 8.3 % (4.4-11.3) Eosinophils (%) (Auto) 1.2 % (0.0-6.0) Basophils (%) (Auto) 1.6 % (0.0-1.0) Neutrophils # (Auto) 3.1 (2.1-6.9) Lymphocytes # (Auto) 1.4 (1.0-3.2) Monocytes # (Auto) 0.4 (0.2-0.8) Eosinophils # (Auto) 0.1 (0.0-0.4) Basophils # (Auto) 0.1 (0.0-0.1) Absolute Immature Granulocyte (auto 0.02 x10e3/uL (0-0.1) Prothrombin Time 12.0 seconds (11.9-14.5) Prothromb Time International Ratio 0.84 Activated Partial Thromboplast Time 28.3 seconds (23.8-35.5) Laboratory Tests Test 08/31/19 12:34 Lab results reviewed: Yes Imaging Imaging results reviewed: Yes Impressions EXAMINATION: CHEST SINGLE (PORTABLE) INDICATION: Chest pain COMPARISON: None FINDINGS: LINES/TUBES:EKG leads overlie the chest. LUNGS:The lungs are hyperinflated. No focal consolidation or pulmonary edema. PLEURA:No pleural effusion or pneumothorax. MEDIASTINUM:The cardiomediastinal silhouette appears normal in size and shape. Postoperative findings of prior CABG. Coronary artery stents in place. BONES/SOFT TISSUES:No acute osseous injury. ABDOMEN:No free air under the diaphragm. IMPRESSION: Hyperinflated lungs. No focal pneumonia or pulmonary edema. Signed by: Marck Nicholas MD on 08/31/2019 1:18 PM Diagnostics Tests Diagnostic test(s) reviewed: Yes Procedures 12 Lead ECG Interpretation Cotton Feeder: Interpreted by ED physician Date: August 31, 2019 Time: 11:00 Prior SYSTEM SUPPORT TECHNICIAN tracings: reviewed Rhythm: sinus rhythm Rate: normal (98) QRS axis: normal ST segment elevation: aVR, V1 ST segments depression: II, III, aVF, V5, V6 Other findings: LVH, LVH with strain Clinical Impression: abnormal ECG Critical Care Time Subsequent provider I assumed direction of critical care for this patient from another provider of my specialty. Assessment & Plan Reassessment Reassessment chest pain - check cbc, chem's, ecg, cardiac enzymes, cxr - r/o STEMI/NSTEMI, angina, pneumonia, electrolyte abnl. 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 Assessment & Plan Final Impression: (1) Chest pain Assessment & Plan spoke with Dr Forbes for admission, Dr Saleem Sullivan for card's Depart Disposition: ADMITTED Last Vital Signs Date Time Temp Pulse Resp B/P (MAP) Pulse Ox O2 Delivery O2 Flow Rate FiO2 08/31/19 12:41 72 18 168/119 100 08/31/19 12:27 98.2 Home Meds Active Scripts Ondansetron (ZOFRAN ODT) 4 Mg Tab.rapdis, 4 MG PO Q4-6H PRN, #12 Prov:LIBERTAD QUIÑONEZ MD 05/22/16 Pantoprazole Sodium* (PROTONIX) 40 Mg Tablet.dr, 40 MG PO DAILY for 30 Days, TAB Prov:LIBERTAD QUIÑONEZ MD 05/22/16 Metronidazole (FLAGYL) 500 Mg Tablet, 500 MG PO TID for 7 Days Prov:LIBERTAD QUIÑONEZ MD 05/22/16 Reported Medications Alprazolam (XANAX) 0.5 Mg Tablet, 0.5 MG PO PRN 04/10/16 Oxycodone Hcl (OXYCODONE HCL) 20 Mg Tablet, 10 MG PO TID PRN for RN, TAB 03/11/16 Tramadol Hcl (ULTRAM) 50 Mg Tablet, 50 MG PO PRN PRN for PAIN, TAB 08/05/14 Atorvastatin Calcium (LIPITOR) 20 Mg Tablet, 20 MG 80, #30 TAB 05/22/14 Potassium Chloride (POTASSIUM CHLORIDE) 20 Meq Tab.er.prt, 20 MG PO DAILY 05/22/14 Temazepam (RESTORIL) 30 Mg Capsule, 30 MG PO BEDTIME 05/22/14 Clonazepam (CLONAZEPAM) 2 Mg Tab.rapdis, 2 MG PO TID 05/22/14 Lisinopril (LISINOPRIL) 10 Mg Tablet, 10 MG PO BID, #30 TAB 05/22/14 Clopidogrel Bisulfate (Plavix) 75 Mg Tablet, 1 TAB PO DAILY 08/02/11 Levothyroxine Sodium (Levothyroxine Sodium) 200 Mcg Tablet, 175 MCG PO DAILY 08/02/11 Metoprolol Succinate (Toprol Xl) 50 Mg Tab.sr.24h, 1 TAB PO DAILY 08/02/11 Medications in the ED Aspirin 81 mg PRN ONCE PO ; Start 08/31/19 at 11:15; Stop 08/31/19 at 11:37; Status DC Morphine Sulfate 4 mg ONCE STAT IV ; Start 08/31/19 at 11:27; Stop 08/31/19 at 11:28; Status DC Sodium Chloride 1,000 ml @ 0 mls/hr Q0M STAT IV ; Start 08/31/19 at 11:12; Sto p 08/31/19 at 11:14; Status DC Ondansetron HCl 4 mg NOW STAT IV ; Start 08/31/19 at 11:16; Stop 08/31/19 at 11:27; Status DC SAM HASTINGS MD August 31, 2019 13:12
[2019-08-31 13:16] LABS: INR 0.84; PARTIAL THROMBOPLASTIN TIME 28.3 seconds (23.8-35.5)
--- NOTE | 2019-08-31 13:21 | Diagnostic Imaging Report ---
EXAMINATION: CHEST SINGLE (PORTABLE) INDICATION: Chest pain COMPARISON: None FINDINGS: LINES/TUBES:EKG leads overlie the chest. LUNGS:The lungs are hyperinflated. No focal consolidation or pulmonary edema. PLEURA:No pleural effusion or pneumothorax. MEDIASTINUM:The cardiomediastinal silhouette appears normal in size and shape. Postoperative findings of prior CABG. Coronary artery stents in place. BONES/SOFT TISSUES:No acute osseous injury. ABDOMEN:No free air under the diaphragm. IMPRESSION: Hyperinflated lungs. No focal pneumonia or pulmonary edema. Signed by: Marck Nicholas MD on 08/31/2019 1:18 PM
[2019-08-31 13:23] LABS: ALANINE AMINOTRANSFERASE 14 IU/L (0-55); ALBUMIN 3.9 g/dL (3.5-5.0); ALBUMIN/GLOBULIN RATIO 1.4 (0.8-2.0); ALKALINE PHOSPHATASE 68 IU/L (40-150); ANION GAP 13.7 mmol/L (8-16); BLOOD UREA NITROGEN 13 mg/dL (7-26); BUN/CREATININE RATIO 13 (6-25); CALCIUM 9.5 mg/dL (8.4-10.2); CARBON DIOXIDE 23 mmol/L (22-29); CHLORIDE 107 mmol/L (98-107); CREATINE KINASE 90 IU/L (29-168); CREATININE, SERUM 0.99 mg/dL (0.57-1.11); EST GLOMERULAR FILTRATION RATE 58 ML/MIN (60-); GLUCOSE 98 mg/dL (74-118); MAGNESIUM 1.7 MG/DL (1.3-2.1); POTASSIUM 3.7 mmol/L (3.5-5.1); SODIUM 140 mmol/L (136-145)
[2019-08-31 13:43] LABS: CHOL/HDL RATIO 3.9 (3.0-3.6)
[2019-08-31] MEDS ORDERED: ENOXAPARIN SODIUM INJ 100 MG/ML SYR SC ONE (13:45)
--- OUTSIDE RECORDS SUMMARY | 2019-08-31 13:47 | XMS REPORT | Clinical Summary ---
Author Author [facility] Address Unknown Phone Unavailable Care Team Providers Care Supervisor Electric Motor Testing Name Role Phone PCP Unavailable Allergies Comments [...] [employer] FED xxxxxxxxx [address] [place] [address] Advance Directives For more information, please contact: [facility] [address] [place] [address] Date Inactivated Comments Code Status Date Activated 06/05/2016 12:30 AM Full Code 06/04/2016 11:27 AM This code status was determined by: Patient 06/04/2016 11:27 AM Full Code 05/30/2016 9:51 PM This code status was determined by: Patient
--- OUTSIDE RECORDS SUMMARY | 2019-08-31 13:48 | XMS REPORT | Continuity of Care Document ---
Author Author Jacob Plascencia [employer] Address Unknown Phone Unavailable Care Team Providers Care Finishing Range Feeder Name Role Phone [employer] Unavailable Un available Problems Problem Status Onset Date Classification Date Reported Comments Source Discharge Diagnosis: Dental caries, unspecified 03/27/2016 03/30/2016 [facility] Discharge Diagnosis: Other specified dis orders of teeth and supporting structures 03/27/2016 03/30/2016 [facility] Discharge Diagnosis: Periapical abscess without sinus 03/27/2016 03/30/2016 [facility] MOUTH PAIN Active 03/27/2016 [facility] ACUTE CHEST PAIN. GASTRP ARESOS Active 04/11/2015 [facility] ACUTE CHEST PAIN GASTRPARESIS Active 04/11/2015 [facility] Discharge Diagnosis: Chest pain 12/07/2014 12/11/2014 [facility] CHEST PAIN Active 12/07/2014 [facility] ACUTE CHEST PAIN, RULE OUT ACS Active 11/23/2014 [facility] Congestive heart failure (disorder) Active Problem 03/2017 [facility] Hypertensive disorder, systemic arterial (disorder) Active Problem 04/16/2016 [facility] Myocardial infarction (disorder) Resolved Problem 03/2017 3 [facility] 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 (Same as: Tylenol) Inactive 04/13/2016 [facility] Acetaminophen 300 MG / Codeine Phosphate 30 MG Oral Tablet [Tylenol with Codeine #3] 1 - 2 tab, PO, Q4H, PRN Pain, X 2 day, # 20 tab, 0 Refill(s) No Longer Active 04/13/2016 [facility] atorvastatin 40 mg oral tablet 80 mg = 2 tab, PO, Bedtime, # 60 tab, 0 Refill(s) Active 04/13/2016 [facility] Morphine Notes: (Same as:MORPh ine Sulfate) No Longer Active 04/12/2016 [facility] pantoprazole Notes: Tablet marquez uld not be chewed or crushed. (Same as: Protonix) N o Longer Active 04/12/2016 [facility] Morphine Notes: (Same as:MORPh ine Sulfate) Inactive 04/12/2016 [facility] atorvastatin Notes: (Same as: Lipitor) No Longer Active 04/12/2016 [facility] metoprolol tartrate Notes: (Sa me as: Toprol XL) May split tab, but do not crush. N o Longer Active 04/12/2016 [facility] Lisinopril Notes: (Same as: Pr inivil, Zestril) No Longer Active 04/12/2016 [facility] Plavix Notes: (Same As: Plavix) No Longer Active 04/12/2016 [facility] Norvasc Notes: (Same as: Norva sc) No Longer Active 04/12/2016 [facility] Saline Flush 0.9% Notes: (Same as: BD Posiflush) No Longer Active 04/12/2016 [facility] heparin Notes: porcine heparin No Longer Active 04/12/2016 [facility] Sucralfate 100 MG/ML Oral Suspension [Carafate] Notes: May interfere w/enteral feeds - Take 1 hr before or 2 hr after antacids, dairy pdt, meals & minerals - On empty stomach. For patients unable to swallow tablet, dissolve in 10mL - 30mL of water or juice and stir before giving. (Same As: Carafate) No Longer Activ e 04/12/2016 [facility] Thyroxine Notes: Take 1 hour b efore or 2 hours after meal; Enteral feeds may interefere with the absorption of this medication. (Same as: Levothroid) No Longe r Active 04/12/2016 [facility] Aspirin 325 MG Oral Tablet Not es: Take with food. No Longer Active 04/12/2016 [facility] Clonidine Hydrochloride 0.1 MG Oral Tablet Notes: (Same As: Catapres) No Longer Active 04/12/2016 [facility] Acetaminophen 325 MG / Hydrocodone Marcio trate 5 MG Oral Tablet [Dexter 5/325] Notes: (Same as: Dexter 325/5) Do not ex ceed 4gm/day of acetaminophen. No Longer Activ e 04/12/2016 [facility] Ativan Notes: (Same as: Ativan) No Longer Active 04/12/2016 [facility] Morphine Notes: (Same as:MORPh ine Sulfate) Inactive 04/12/2016 [facility] 24 HR tramadol hydrochloride 100 MG Exte nded Release Tablet 100 mg = 1 tab, PO, Q4H, 0 Refill(s) Active 04/12/2016 [facility] Amlodipine 10 MG Oral Tablet [Norvasc] See Instructions, 1 tab PO Daily, 0 Refill(s) Active 04/12/2016 [facility] Saline Flush 0.9% Notes: (Same as: BD Posiflush) No Longer Active 04/12/2016 [facility] Morphine Notes: (Same as:MORPh ine Sulfate) Inactive 04/12/2016 [facility] Nitroglycerin Notes: (Same as: Nitroquick, Nitrostat) "Do Not Crush" Sublingual tablet No Longer Active 04/12/2016 [facility] Ativan 0.5 mg, Route: IVP, Bandar g form: INJ, ONCE, Dosing Weight 72.727, kg, Priority: STAT, Start date: 04/12/16 1:56:00 [employer], Stop date: 04/12/16 1:56:00 [employer] Inactive 04/12/2016 [facility] Morphine Notes: (Same as:MORPh ine Sulfate) No Longer Active 04/12/2016 [facility] Nitroglycerin Notes: (Same as: Nitroquick, Nitrostat) "Do Not Crush" Sublingual tablet No Longer Active 04/12/2016 [facility] Famotidine Notes: (Same as: Pe pcid) Can be dilute in 5- 10cc NS IVP: Slow IV push over at least 2 minutes. No Longer Active 04/12/2016 [facility] Saline Flush 0.9% Notes: Same as: BD Posiflush Sterile No Longer Active 04/12/2016 [facility] Acetaminophen 300 MG / Codeine Phosphate 30 MG Oral Tablet [Tylenol with Codeine #3] 1 - 2 tab, PO, Q4H, PRN Pain, X 3 day, # 20 tab, 0 Refill(s) Active 03/27/2016 [facility] Clindamycin 300 MG Oral Capsule [Cleocin] 300 mg = 1 cap, PO, QID, X 10 day, # 40 cap, 0 Refill(s) Active 03/27/2016 [facility] Dilaudid 0.5 mg, 0.5 mL, Route : IM, Drug form: INJ, ONCE, Dosing Weight 72.727, kg, Priority: STAT, Start date: 03/27/16 10:29:00 [employer], Stop date: 03/27/16 10:29:00 [employer] Inactive 03/27/2016 [facility] Acetaminophen 325 MG / Hydrocodone Marcio trate 10 MG Oral Tablet [Dexter 10/325] 1 tab, Route: PO, Drug Form: TAB, Dosing Weight 72.727, kg, ONCE, STAT, Start date: 03/27/16 10:26:00 [employer], Stop date: 03/27/16 10:26:00 [employer] Inactive 03/27/2016 [facility] Clindamycin Notes: (clindamyci n 150 mg/1 ml (600 mg/4 ml VL) INJ) (Same As: Cleocin) Inactive 03/27/2016 [facility] Thyroxine Notes: Take 1 hour b efore or 2 hours after meal; Enteral feeds may interefere with the absorption of this medication. (Same as: Levothroid) No Longe r Active 12/09/2014 [facility] Plavix Notes: (Same As: Plavix) No Longer Active 12/09/2014 [facility] 24 HR Metoprolol Tartrate 50 MG Extended Release Tablet [Toprol] Notes: (Same as: Toprol XL) May split t ab, but do not crush. No Longer Active 12/09/2014 [facility] Lisinopril Notes: (Same as: Pr inivil, Zestril) Inactive 12/08/2014 [facility] pantoprazole Notes: Tablet marquez uld not be chewed or crushed. (Same as: Protonix) Inactive 12/08/2014 [facility] Sucralfate 100 MG/ML Oral Suspension [Carafate] Notes: Enteral feeds may interfere with the absorption of this medication. Shake well. Take 1 hr before or 2 hrs after antacids, dairy pdt, minerals & meals. (Same As: Carafate) Inactive 12/08/2014 [facility] Erythromycin 250 MG Enteric Coated Tablet Notes: (Same as: Brenton-Tab) Give With Food "Do Not Crush" Inactive 12/08/2014 [facility] Sucralfate 100 MG/ML Oral Suspension [Carafate] 1 gm = 10 ml, PO, QID-Before Meals, # 1200 mL, 0 Refill(s) Active 12/08/2014 [facility] tramadol hydrochloride 50 MG Oral Tablet 50 mg = 1 tab, PO, Q6H, PRN Pain, # 30 tab, 0 Refill(s) Active 12/08/2014 [facility] Aspirin 325 MG Oral Tablet Not es: Take with food. Inactive 12/08/2014 [facility] Hyoscyamine Notes: (Same as: L evsin) Take 30 min before meal Inactive 12/08/2014 [facility] Valium Notes: (Same as: Valium) Inactive 12/08/2014 [facility] Clonidine Hydrochloride 0.1 MG Oral Tablet Notes: (Same As: Catapres) Inactive 12/08/2014 [facility] Diazepam 10 MG Oral Tablet [Valium] 10 mg = 1 tab, PO, TID, PRN Anxiety, 0 Refill(s) Active 12/08/2014 [facility] Temazepam 30 MG Oral Capsule [Restoril] 30 mg = 1 cap, PO, Bedtime, PRN Sleep, 0 Refill(s) Active 12/08/2014 [facility] clopidogrel 75 MG Oral Tablet [Plavix] 75 mg = 1 tab, PO, Daily, # 30 tab, 0 Refill(s) Active 12/08/2014 [facility] tramadol hydrochloride 50 MG Oral Tablet 50 mg = 1 tab, PO, Q6H, PRN Pain, 0 Refill(s) Inactive 12/08/2014 [facility] promethazine 25 mg oral tablet 25 mg = 1 tab, PO, Q4H, PRN Nausea/Vomiting, 0 Refill(s) Active 12/08/2014 [facility] pantoprazole 40 mg oral enteric coated tablet 40 mg = 1 tab, PO, Before Dinner, 0 Refill(s) Active 12/08/2014 [facility] metoprolol 50 mg oral tablet, extended release 50 mg = 1 tab, PO, BID, 0 Refill(s) Active 12/08/2014 [facility] lisinopril 20 mg oral tablet 2 0 mg = 1 tab, PO, BID, # 60 tab, 0 Refill(s) Active 12/08/2014 [facility] levothyroxine 200 mcg (0.2 mg) oral tablet 200 microgram = 1 tab, PO, Daily, # 30 tab, 0 Refill(s) Active 12/08/2014 [facility] hyoscyamine 0.125 mg sublingual tablet 0.125 mg = 1 tab, SL, Before Meals & Bedtime, 0 Refill(s) Active 12/08/2014 [facility] erythromycin 250 mg oral delayed release capsule 250 mg = 1 cap, PO, Q6H, # 40 cap, 0 Refill(s) Active 12/08/2014 [facility] Clonidine Hydrochloride 0.1 MG Oral Tablet 0.1 mg = 1 tab, PO, TID, PRN Hypertension, 0 Refill(s) Active 12/08/2014 [facility] Aspirin 325 MG Oral Tablet 325 mg = 1 tab, PO, Daily, # 30 tab, 0 Refill(s) Active 12/08/2014 [facility] Phenergan Notes: Do not give I V push. (Same as: Phenergan) Inactive 12/08/2014 [facility] Morphine Notes: (Same as:MORPh ine Sulfate) Inactive 12/08/2014 [facility] Sodium Chloride 0.154 MEQ/ML Injectable Solution 1,000 mL, Rate: 125 ml/hr, Infuse over: 8 hr, Route: IV, Dosing Weight 81.818 kg, Total Volume: 1,000, Start date: 12/08/14 4:07:00, Duration: 30 day, Stop date: 01/07/15 4:06:00 Inactive 12/08/2014 [facility] Saline Flush 0.9% Notes: (Same as: BD Posiflush) Inactive 12/08/2014 [facility] nitroglycerin 0.4 mg sublingual tablet Notes: (Same as:NitroNimisha hartmanntat) "Do Not Crush" Sublingual tablet Inactive 12/08/2014 [facility] atropine 0.5 mg, 5 mL, Route: IVP, Drug form: INJ, PRN, PRN Bradycardia, Start date: 12/08/14 3:28:00, Duration: 30 day, Stop date: 01/07/15 3:27:00 Inactive 12/08/2014 [facility] Furosemide 20 MG Oral Tablet [Lasix] 20 mg = 1 tab, PO, Daily, 0 Refill(s) Inactive 12/08/2014 [facility] Labetalol Notes: (Same as: Alisa Caodazoltan) Push over 2 minutes Give bolus over 2-3 minutes. Inactive 12/08/2014 [facility] Nitroglycerin 0.4 MG Sublingual Tablet [Nitrostat] Notes: (Same as:Nitroquick, Nitrostat) "Do Not Crush" Sublingual tablet Inactive 12/08/2014 [facility] Phenergan 12.5 mg, Route: IVPB , ONCE, Dosing Weight 77.273, kg, Priority: STAT, Start date: 12/08/14 0:34:00, Stop date: 12/08/14 0:34:00 Inactive 12/08/2014 [facility] Morphine 4 mg, Route: IVP, Bandar g form: INJ, ONCE, Dosing Weight 77.273, kg, Priority: STAT, Start date: 12/08/14 0:34:00, Stop date: 12/08/14 0:34:00 Inactive 12/08/2014 [facility] Morphine 4 mg, Route: IVP, Bandar g form: INJ, ONCE, Dosing Weight 77.273, kg, Priority: STAT, Start date: 12/08/14 0:26:00, Stop date: 12/08/14 0:26:00 Inactive 12/08/2014 [facility] Phenergan 12.5 mg, Route: IVPB , ONCE, Dosing Weight 77.273, kg, Priority: STAT, Start date: 12/08/14 0:25:00, Stop date: 12/08/14 0:25:00 Inactive 12/08/2014 [facility] Bentyl 20 mg, Route: PO, ONCE, Dosing Weight 77.273, kg, Start date: 12/07/14 23:41:00, Stop date: 12/07/14 23:41:00 No Longer Active 12/08/2014 [facility] Morphine 4 mg, Route: IVP, Bandar g form: INJ, ONCE, Dosing Weight 77.273, kg, Priority: STAT, Start date: 12/07/14 22:35:00, Stop date: 12/07/14 22:35:00 Inactive 12/08/2014 [facility] GI cocktail Notes: [place] = antacid with simethicone 22.5 mL - lidocaine viscous 7.5 mL Inactive 12/08/2014 [facility] Morphine 4 mg, Route: IVP, Bandar g form: INJ, ONCE, Dosing Weight 77.273, kg, Priority: STAT, Start date: 12/07/14 20:58:00, Stop date: 12/07/14 20:58:00 Inactive 12/08/2014 [facility] Protonix 40 mg, Route: IVP, ON CE, Dosing Weight 77.273, kg, Priority: STAT, Start date: 12/07/14 20:58:00, Stop date: 12/07/14 20:58:00 Inactive 12/08/2014 [facility] Clonidine 0.1 mg, Route: PO, D rug form: TAB, ONCE, Dosing Weight 77.273, kg, Priority: STAT, Start date: 12/07/14 19:49:00, Stop date: 12/07/14 19:49:00 Inactive 12/08/2014 [facility] Phenergan 12.5 mg, Route: IVPB , ONCE, Dosing Weight 77.273, kg, Priority: STAT, Start date: 12/07/14 19:49:00, Stop date: 12/07/14 19:49:00 Inactive 12/08/2014 [facility] Sodium Chloride 0.154 MEQ/ML Injectable Solution 1,000 mL, 1,000 ml/hr, Infuse Over: 1 hr, Route: IV, ONCE, Priority: STAT, Dosing Weight 77.273 kg, Start date: 12/07/14 19:48:00, Duration: 1 doses or times, Stop date: 12/07/14 19:48:00 Inactive 12/08/2014 [facility] metoprolol tartrate 50 mg oral tablet 50 mg = 1 tab, PO, Q12H, # 120 tab, 0 Refill(s) Active 12/01/2014 [facility] lisinopril 20 mg oral tablet 2 0 mg = 1 tab, PO, BID, # 60 tab, 0 Refill(s) Active 12/01/2014 [facility] clopidogrel 75 MG Oral Tablet [Plavix] 75 mg = 1 tab, PO, Daily, # 30 tab, 0 Refill(s) Active 12/01/2014 [facility] Aspirin 325 MG Oral Tablet 325 mg, PO, Daily, # 30 tab, 0 Refill(s) Active 12/01/2014 [facility] Temazepam 30 MG Oral Capsule [Restoril] 30 mg = 1 cap, PO, Bedtime, X 7 day, # 7 cap, 0 Refill(s) Active 12/01/2014 [facility] Diazepam 10 MG Oral Tablet [Valium] 10 mg = 1 tab, PO, TID, PRN Anxiety, X 7 day, # 21 tab, 0 Refill(s) Active 12/01/2014 [facility] levothyroxine 200 mcg (0.2 mg) oral tablet 200 microgram = 1 tab, PO, Daily, # 30 tab, 0 Refill(s) Active 12/01/2014 [facility] Clonidine Hydrochloride 0.1 MG Oral Tablet 0.1 mg = 1 tab, PO, TID, PRN Hypertension, # 90 tab, 0 Refill(s) Active 12/01/2014 [facility] tramadol hydrochloride 50 MG Oral Tablet 50 mg = 1 tab, PO, Q6H, PRN Pain, X 10 day, # 40 tab, 0 Refill(s) Active 12/01/2014 [facility] erythromycin 250 mg oral tablet 250 mg = 1 tab, PO, Q6H, X 10 day, # 40 tab, 0 Refill(s) Active 12/01/2014 [facility] promethazine 25 mg oral tablet 25 mg = 1 tab, PO, Q4H, PRN Allergic reaction, X 7 day, # 42 tab, 0 Refill(s) Active 12/01/2014 [facility] pantoprazole 40 mg oral enteric coated tablet 40 mg = 1 tab, PO, Before Dinner, # 30 tab, 0 Refill(s) Active 12/01/2014 [facility] hyoscyamine 0.125 mg sublingual tablet 0.125 mg = 1 tab, PO, Before Meals & Bedtime, # 120 tab, 0 Refill(s) Active 12/01/2014 [facility] hydrOXYzine hydrochloride 10 mg/5 mL oral syrup Notes: (Same as: Atarax) No Longer Active 11/29/2014 [facility] Erythromycin Ethylsuccinate 40 MG/ML Oral Suspension Notes: (Same as: E.E.S.-400) N o Longer Active 11/29/2014 [facility] Hydroxyzine Notes: (Same as: V istaril) Avoid alcohol. Inactive 11/29/2014 [facility] Tylenol Notes: Do not exceed 4 gm/day. (Same as: Tylenol) No Longer Active 11/28/2014 [facility] Dilaudid 1 mg, 1 mL, Route: IV , Drug form: INJ, Q4H, Dosing Weight 81.818, kg, PRN Pain Score 7-10, Start date: 11/28/14 11:53:00, Duration: 30 day, Stop date: 12/28/14 11:52:00 No Longer Active 11/28/2014 [facility] Levsin Notes: (Same as: Levsin ) Take 30 min before meal No Longer Active 11/28/2014 [facility] Protonix Notes: Tablet should not be chewed or crushed. (Same as: Protonix) No Longer Active 11/26/2014 [facility] Levsin Notes: (Same as: Levsin ) Take 30 min before meal No Longer Active 11/26/2014 [facility] Sodium Chloride 0.154 MEQ/ML Injectable Solution 500 mL, Rate: 25 ml/hr, Infuse over: 20 hr, Route: IV, Dosing Weight 81.818 kg, Total Volume: 500, Start date: 11/26/14 8:15:00, Duration: 1 day, Stop date: 11/27/14 8:14:00 No Longer Active 11/26/2014 [facility] Dilaudid 1 mg, 1 mL, Route: IV P, Drug form: INJ, ONCE, Dosing Weight 81.818, kg, Priority: STAT, Start date: 11/25/14 17:51:00, Stop date: 11/25/14 17:51:00 Inactive 11/25/2014 [facility] Plavix Notes: (Same As: Plavix) No Longer Active 11/25/2014 [facility] Aspirin 325 MG Oral Tablet Not es: Take with food. No Longer Active 11/25/2014 [facility] Thyroxine Notes: Take 1 hour b efore or 2 hours after meal; Enteral feeds may interefere with the absorption of this medication. (Same as: Levothroid) No Longe r Active 11/25/2014 [facility] Famotidine 20 MG Oral Tablet N otes: (Same as: Pepcid) No Longer Active 11/25/2014 [facility] Restoril Notes: (Same As: Rest oril) No Longer Active 11/25/2014 [facility] metoprolol tartrate Notes: (Sa me as: Lopressor) No Longer Active 11/25/2014 [facility] Lisinopril Notes: (Same as: Pr inivil, Zestril) No Longer Active 11/25/2014 [facility] Lipitor Notes: (Same as: Lipit or) No Longer Active 11/25/2014 [facility] Dilaudid 0.5 mg, 0.5 mL, Route : IV, Drug form: INJ, Q3H, Dosing Weight 81.818, kg, PRN Pain Score 7-10, Start date: 11/24/14 17:16:00, Duration: 30 day, Stop date: 12/24/14 17:15:00 No Longer Active 2014 [facility] Acetaminophen 325 MG / Hydrocodone Marcio trate 10 MG Oral Tablet [Dexter 10/325] Notes: Do not exceed 4gm/day of acetamin ophen. (Same as: Dexter 325/10) No Longer Active 2014 [facility] Valium Notes: (Same as: Valium) No Longer Active 2014 [facility] Phenergan Notes: Do not give I V push. (Same as: Phenergan) No Longer Active 2014 [facility] Saline Flush 0.9% Notes: (Same as: BD Posiflush) No Longer Active 2014 [facility] Dilaudid 0.5 mg, 0.5 mL, Route : IV, Drug form: INJ, Q4H, Dosing Weight 81.818, kg, PRN Pain Score 7-10, Start date: 11/23/14 18:49:00, Duration: 30 day, Stop date: 12/23/14 18:48:00 No Longer Active 11/23/2014 [facility] Phenergan Notes: (Same as: Phe nergan) No Longer Active 11/23/2014 [facility] Magnesium Sulfate 2 gm, 50 mL, Route: IVPB, Drug form: INJ, ONCE, Dosing Weight 81.818, kg, Total dose = 2 gm, Start date: 11/23/14 18:46:00, Duration: 1 doses or times, Stop date: 11/23/14 18:46:00 Inactive 11/23/2014 [facility] normal saline 0.9% IV 1,000 mL 1,000 mL, Rate: 80 ml/hr, Infuse over: 12.5 hr, Route: IV, Dosing Weight 81.818 kg, Total Volume: 1,000, Start date: 11/23/14 18:39:00, Stop date: 12/23/14 18:38:00 No Longer Active 11/23/2014 [facility] nitroglycerin 0.4 mg sublingual tablet Notes: (Same as:Nitroquick, Nitrostat) "Do Not Crush" Sublingual tablet No Longer Active 11/23/2014 [facility] atropine 0.5 mg, 5 mL, Route: IVP, Drug form: INJ, PRN, PRN Bradycardia, Start date: 11/23/14 18:36:00, Duration: 30 day, Stop date: 12/23/14 18:35:00 No Longer Active 11/23/2014 [facility] Pepcid Notes: (Same as: Pepcid ) Can be dilute in 5-10cc NS IVP: Slow IV push over at least 2 minutes. No Longer Active 11/23/2014 [facility] Dilaudid 1 mg, Route: IVP, ONC E, Dosing Weight 81.818, kg, Priority: STAT, Start date: 11/23/14 17:57:00, Stop date: 11/23/14 17:57:00 Inactive 11/23/2014 [facility] Benadryl 25 mg, Route: IVP, ON CE, Dosing Weight 81.818, kg, PRN Allergic reaction, Start date: 11/23/14 17:56:00 Inactive 11/23/2014 [facility] Reglan 10 mg, Route: IVP, ONCE , Dosing Weight 81.818, kg, Start date: 11/23/14 17:55:00, Stop date: 11/23/14 17:55:00 Inactive 11/23/2014 [facility] Clonidine Hydrochloride 0.1 MG Oral Tablet 160 No Longer Active 11/23/2014 [facility] Droperidol 0.625 mg, Route: IV P, ONCE, Dosing Weight 81.818, kg, PRN Nausea, Start date: 11/23/14 17:42:00, Stop date: 12/23/14 17:41:00 Inactive 11/23/2014 [facility] Saline Flush 0.9% Notes: (Same as: BD Posiflush) No Longer Active 11/23/2014 [facility] Morphine Notes: (Same as:MORPh ine Sulfate) No Longer Active 11/23/2014 [facility] Nitroglycerin Notes: (Same as: Nitroquick, Nitrostat) "Do Not Crush" Sublingual tablet Inactive 11/23/2014 [facility] Morphine Notes: (Same as:MORPh ine Sulfate) Inactive 11/23/2014 [facility] Clonidine Hydrochloride 0.1 MG Oral Tablet Notes: (Same As: Catapres) No Longer Active 11/23/2014 [facility] Labetalol Notes: (Same as: Yarely srivastava Trandate) Push over 2 minutes Give bolus over 2-3 minutes. No Longer Active 11/23/2014 [facility] Ativan 1 mg, Route: PO, Drug f orm: TAB, ONCE, Dosing Weight 81.818, kg, Priority: STAT, Start date: 11/23/14 14:33:00, Stop date: 11/23/14 14:33:00 Inactive 11/23/2014 [facility] Nitroglycerin Notes: (Same as: Nitroquick, Nitrostat) "Do Not Crush" Sublingual tablet Inactive 11/23/2014 [facility] Morphine 4 mg, Route: IVP, Bandar g form: INJ, ONCE, Dosing Weight 81.818, kg, Priority: STAT, Start date: 11/23/14 13:13:00, Stop date: 11/23/14 13:13:00 Inactive 11/23/2014 [facility] Saline Flush 0.9% Notes: (Same as: BD Posiflush) Inactive 11/23/2014 [facility] multivitamin with minerals Not es: (Same as:Thera-M, Theragran-M) Give with food. No Longer Active 09/19/2014 [facility] Thyroxine Notes: Take 1 hour b efore or 2 hours after meal; Enteral feeds may interefere with the absorption of this medication.(Same as:Levothroid, Synthroid) No Longer Active 09/19/2014 [facility] Aspirin 325 MG Oral Tablet 325 mg, Route: PO, Drug form: TAB, Daily, Dosing Weight 79.545, kg, Start date: 09/19/14 9:00:00, Duration: 30 day, Stop date: 10/18/14 9:00:00 No Longer Active 09/19/2014 [facility] Plavix 75 mg, Route: PO, Drug form: TAB, Daily, Dosing Weight 79.545, kg, Start date: 09/19/14 9:00:00, Duration: 30 day, Stop date: 10/18/14 9:00:00 No Longer Active 09/19/2014 [facility] potassium chloride 80 mEq, Rou te: PO, Daily, Dosing Weight 79.545, kg, Start date: 09/19/14 9:00:00, Duration: 30 day, Stop date: 10/18/14 9:00:00 No Longer Active 09/19/2014 [facility] metoprolol tartrate 50 mg, Rou te: PO, Drug form: TAB, Q12H, Dosing Weight 79.545, kg, Start date: 09/18/14 21:00:00, Duration: 30 day, Stop date: 10/18/14 9:00:00 Inactive 09/19/2014 [facility] Lipitor 80 mg, Route: PO, Drug form: TAB, Bedtime, Dosing Weight 79.545, kg, Start date: 09/18/14 21:00:00, Duration: 30 day, Stop date: 10/17/14 21:00:00 Inactive 09/19/2014 [facility] Restoril 30 mg, Route: PO, Bandar g form: CAP, Bedtime, Dosing Weight 79.545, kg, Start date: 09/18/14 21:00:00, Duration: 30 day, Stop date: 10/17/14 21:00:00 Inactive 09/19/2014 [facility] Lisinopril 20 mg, Route: PO, D rug form: TAB, BID, Dosing Weight 79.545, kg, Start date: 09/18/14 17:00:00, Duration: 30 day, Stop date: 10/18/14 9:00:00 Inactive 09/18/2014 [facility] acetaminophen-hydrocodone 325 mg-10 mg oral tablet Notes: Do not exceed 4gm/day of acetaminophen. (Same as: Dexter 325/10) Inactive 09/18/2014 [facility] Hydralazine Hydrochloride 10 MG Oral Tablet Notes: (Same as: Apresoline) May interfere w/enteral feedings. Take With Food Inactive 09/18/2014 [facility] Acetaminophen 325 MG / Hydrocodone Marcio trate 10 MG Oral Tablet [Dexter 10/325] Notes: Do not exceed 4gm/day of acetamin ophen. (Same as: Dexter 325/10) Inactive 09/18/2014 [facility] metoprolol tartrate 50 mg oral tablet 50 mg = 1 tab, PO, Q12H, # 120 tab, 0 Refill(s) O n Hold 09/18/2014 [facility] clopidogrel 75 MG Oral Tablet [Plavix] 75 mg = 1 tab, PO, Daily, # 30 tab, 0 Refill(s) On Hold 09/18/2014 [facility] atorvastatin 80 MG Oral Tablet [Lipitor] 80 mg = 1 tab, PO, Bedtime, # 30 tab, 0 Refill(s) On Hold 09/18/2014 [facility] lisinopril 20 mg oral tablet 2 0 mg = 1 tab, PO, BID, # 60 tab, 0 Refill(s) On Hold 09/18/2014 [facility] Aspirin 325 MG Oral Tablet 325 mg, PO, Daily, # 30 tab, 0 Refill(s) On Hold 09/18/2014 [facility] Hydralazine Hydrochloride 10 MG Oral Tablet 160 mmHg, # 120 tab, 0 Refill(s) On Hold 09/18/2014 [facility] Saline Flush 0.9% Notes: (Same as: BD Posiflush) Inactive 09/18/2014 [facility] Valium Notes: (Same as: Valium) Inactive 09/18/2014 [facility] metoprolol tartrate Notes: (Sa me as: Lopressor) Inactive 09/18/2014 [facility] Lisinopril Notes: (Same as: Pr inivil, Zestril) Inactive 09/18/2014 [facility] clopidogrel 75 MG Oral Tablet [Plavix] 75 mg = 1 tab, PO, Daily Inactive 09/18/2014 [facility] lisinopril 20 mg oral tablet 2 0 mg = 1 tab, PO, BID, 0 Refill(s) Inactive 09/18/2014 [facility] Temazepam 30 MG Oral Capsule [Restoril] 30 mg = 1 cap, PO, Bedtime On Hold 09/18/2014 [facility] Diazepam 10 MG Oral Tablet [Valium] 10 mg = 1 tab, PO, TID, PRN Anxiety On Hold 09/18/2014 [facility] metoprolol tartrate 50 mg oral tablet 50 mg = 1 tab, PO, Q12H Inactive 09/18/2014 [facility] levothyroxine 200 mcg (0.2 mg) oral tablet 200 microgram = 1 tab, PO, Daily, # 30 tab On Hold 09/18/2014 [facility] Aspirin 325 mg, PO, Daily, 0 R efill(s) Inactive 09/18/2014 [facility] Centrum Adults 1 tab, PO, Olivia y, 0 Refill(s) On Hold 09/18/2014 [facility] atorvastatin 80 MG Oral Tablet [Lipitor] 80 mg = 1 tab, PO, Bedtime Inactive 09/18/2014 [facility] Acetaminophen 325 MG / Hydrocodone Marcio trate 10 MG Oral Tablet [Dexter 10/325] 1-2 tab, PO, Q4-6H, PRN Pain On Hold 09/18/2014 [facility] potassium chloride 80 mEq, PO, Daily On Hold 09/18/2014 [facility] Phenergan Notes: Do not give I V push. (Same as: Phenergan) Inactive 09/18/2014 [facility] Metoprolol 5 mg, Route: IV, ON CE, Dosing Weight 79.545, kg, Start date: 09/18/14 5:09:00, Stop date: 09/18/14 5:09:00 Inactive 09/18/2014 [facility] Morphine 4 mg, Route: IVP, ONC E, Dosing Weight 79.545, kg, Start date: 09/18/14 5:08:00, Stop date: 09/18/14 5:08:00 Inactive 09/18/2014 [facility] Saline Flush 0.9% Notes: (Same as: BD Posiflush) Inactive 09/18/2014 [facility] Nitroglycerin Notes: (Same as: Nitroquick, Nitrostat) "Do Not Crush" Sublingual tablet Inactive 09/18/2014 [facility] Aspirin 325 MG Oral Tablet Not es: Take with food. Inactive 09/18/2014 [facility] Ativan 0.5 mg, Route: IVP, Bandar g form: INJ, ONCE, Dosing Weight 79.545, kg, PRN Anxiety, Start date: 09/18/14 2:14:00 Inactive 09/18/2014 [facility] Nitroglycerin 0.02 MG/MG Topical Ointment 0.5 inch, Route: TOP, Dosing Weight 79.545, kg, ONCE, Start date: 09/18/14 0:22:00, Stop date: 09/18/14 0:22:00 Inactiv e 09/18/2014 [facility] Aspirin 325 MG Oral Tablet 325 mg, Route: PO, Drug form: TAB, ONCE, Dosing Weight 79.545, kg, Priority: STAT, Start date: 09/18/14 0:10:00, Stop date: 09/18/14 0:10:00 Inactive 09/18/2014 [facility] Allergies, Adverse Reactions, Alerts Substance Category Reaction Severity Reaction type Status Date Reported Comments Source Compazine Assertion Drug allergy Active [facility] penicillins Assertion Drug allergy Active [facility] Reglan Assertion Drug allergy Active [facility] Toradol Assertion Drug allergy Active [facility] Zofran Assertion Drug allergy Active [facility] Immunizations No Data Provided for This Section Results Order Name Results Value Reference Range Date Interpretation Comments Source CARDIAC ENZYMES Total CK 63 12 - 191 04/12/2016 [facility] CARDIAC ENZYMES Troponin-I <0.02 0.00 - 0.40 04/12/2016 [facility] CARDIAC ENZYMES BNP 27 <=100 pg/mL 04/12/2016 [facility] CARDIAC ENZYMES Troponin-I <0.02 0.00 - 0.40 04/12/2016 [facility] CARDIAC ENZYMES CK MB 0.7 0.5 - 3.6 04/12/2016 [facility] CARDIAC ENZYMES Total CK 87 12 - 191 04/12/2016 [facility] CARDIAC ENZYMES CK MB Index 0.8 0.0 - 2.5 04/12/2016 [facility] CHEM PANEL Lipase Lvl 199 73 - 393 04/12/2016 [facility] CHEM PANEL eGFR 99 04/12/2016 Result Comment: [...] should be multiplied by the estimated BMI. [facility] CHEM PANEL Creatinine Lvl 0.69 0.50 - 1.40 04/12/2016 [facility] CHEM PANEL Sodium Lvl 140 135 - 145 04/12/2016 [facility] CHEM PANEL Glucose Lvl 96 70 - 99 04/12/2016 [facility] CHEM PANEL BUN 22 7 - 22 04/12/2016 [facility] CHEM PANEL Chloride Lvl 110 95 - 109 04/12/2016 [facility] CHEM PANEL Alk Phos 87 39 - 136 04/12/2016 [facility] CHEM PANEL Potassium Lvl 4.3 3.5 - [...] A/G Ratio 0.9 0.7 - 1.6 04/12/2016 [facility] CHEM PANEL Albumin Lvl 3.2 3.5 - 5.0 04/12/2016 [facility] CHEM PANEL ALT 24 0 - 65 04/12/2016 [facility] HEMATOLOGY PT 12.1 12.0 - 14.7 04/12/2016 [facility] HEMATOLOGY INR 0.88 0.85 - 1.17 04/12/2016 [facility] HEMATOLOGY PTT 25.1 22.9 - 35.8 04/12/2016 [facility] HEMATOLOGY Platelet 299 133 - 450 04/12/2016 [facility] HEMATOLOGY MPV 8.0 7.4 - 10.4 04/12/2016 [facility] HEMATOLOGY MCHC 34.0 32.0 - 36.0 04/12/2016 [facility] HEMATOLOGY RDW 14.9 11.5 - 14.5 04/12/2016 [facility] HEMATOLOGY MCH 31.9 27.0 - 31.0 04/12/2016 [facility] HEMATOLOGY Hct 36.7 36.0 - 48.0 04/12/2016 [facility] HEMATOLOGY MCV 93.8 80.0 - 98.0 04/12/2016 [facility] HEMATOLOGY WBC 8.8 3.7 - 10.4 04/12/2016 [facility] HEMATOLOGY Hgb 12.5 12.0 - 16.0 04/12/2016 [facility] HEMATOLOGY RBC 3.92 4.20 - 5.40 04/12/2016 [facility] HEMATOLOGY Lymphocytes # 4.7 1.0 - 5.5 04/12/2016 [facility] HEMATOLOGY Monocytes # 0.6 0.0 - 0.8 04/12/2016 [facility] HEMATOLOGY Eosinophils # 0.3 0.0 - 0.5 04/12/2016 [facility] HEMATOLOGY Basophils # 0.2 0.0 - 0.2 04/12/2016 [facility] HEMATOLOGY Segs 34.8 45.0 - 75.0 04/12/2016 [facility] HEMATOLOGY Segs-Bands # 3.1 1.5 - 8.1 04/12/2016 [facility] HEMATOLOGY Monocytes 6.9 2.0 - 12.0 04/12/2016 [facility] HEMATOLOGY Basophils 1.7 0.0 - 1.0 04/12/2016 [facility] HEMATOLOGY Lymphocytes 53.2 20.0 - 40.0 04/12/2016 [facility] HEMATOLOGY Eosinophils 3.4 0.0 - 4.0 04/12/2016 [facility] DRUG SCREEN UDS Note See Note (04/12/16 12:13 AM) 04/12/2016 [facility] DRUG SCREEN U Phencyc Scr Nega tive *NA* (04/12/16 12:13 AM) Negative 04/12/2016 [facility] DRUG SCREEN U Opiate Scr Nega tive *NA* (04/12/16 12:13 AM) Negative 04/12/2016 [facility] DRUG SCREEN U Cocaine Scr Nega tive *NA* (04/12/16 12:13 AM) Negative 04/12/2016 [facility] DRUG SCREEN U Benzodia Scr Posi tive *ABN* (04/12/16 12:13 AM) Negative 04/12/2016 [facility] DRUG SCREEN U Cannab Scr Posi tive *ABN* (04/12/16 12:13 AM) Negative 04/12/2016 [facility] DRUG SCREEN U Amph Scr Nega tive *NA* (04/12/16 12:13 AM) Negative 04/12/2016 [facility] DRUG SCREEN U Nisreen Scr Nega tive *NA* (04/12/16 12:13 AM) Negative 04/12/2016 [facility] URINE AND STOOL UA Ketones Negative mg/dL Negative mg/dL 04/12/2016 [facility] URINE AND STOOL UA Color Ltyellow 04/12/2016 [facility] URINE AND STOOL UA Urobilinogen <=1.0 mg/dL 0.1 - 1.0 04/12/2016 [facility] URINE AND STOOL UA Bili Negative *NA* (04/12/16 12:13 AM) Negative 04/12/2016 [facility] URINE AND STOOL UA Nitrite Negative (04/12/16 12:13 AM) Negative 04/12/2016 [facility] URINE AND STOOL UA Blood Negative (04/12/16 12:13 AM) Negative 04/12/2016 [facility] URINE AND STOOL UA WBC 4 0 - 5 04/12/2016 [facility] URINE AND STOOL UA Sq Epi Occasional /LPF Few /LPF 04/12/2016 [facility] URINE AND STOOL UA Leuk Est Trace *ABN* (04/12/16 12:13 AM) Negative 04/12/2016 [facility] URINE AND STOOL UA RBC 2 0 - 2 04/12/2016 [facility] URINE AND STOOL UA pH 6.0 5.0 - 8.0 04/12/2016 [facility] URINE AND STOOL UA Protein Negative mg/dL Negative mg/dL 04/12/[address] [facility] [address] URINE AND STOOL UA Glucose Negative mg/dL Negative mg/dL 04/12/[address] [facility] [address] URINE AND STOOL UA Spec Grav 1.020 <=1.030 04/12/2016 [facility] URINE AND STOOL UA Turbidity Clear (04/12/16 12:13 AM) Clear 04/12/2016 [facility] CARDIAC ENZYMES Total CK 89 12 - 191 12/08/2014 [facility] CARDIAC ENZYMES Troponin-I <0.02 0.00 - 0.40 12/08/2014 [facility] CARDIAC ENZYMES CK MB Index 1.5 0.0 - 2.5 12/08/2014 [facility] CARDIAC ENZYMES CK MB 1.3 0.5 - 3.6 12/08/2014 [facility] CHEM PANEL eGFR 99 12/08/2014 Result Comment: [...] should be multiplied by the estimated BMI. [facility] CHEM PANEL BUN 12 7 - 22 12/08/2014 [facility] CHEM PANEL Creatinine Lvl 0.7 0.5 - 1.4 12/08/2014 [facility] CHEM PANEL Glucose Lvl 130 70 - 99 12/08/2014 [facility] CHEM PANEL Chloride Lvl 110 95 - 109 12/08/2014 [facility] CHEM PANEL Potassium Lvl 4.0 3.5 - 5.1 12/08/2014 [facility] CHEM PANEL CO2 21 24 - 32 12/08/2014 [facility] CHEM PANEL Sodium Lvl 140 135 - 145 12/08/2014 [facility] CHEM PANEL Calcium Lvl 8.7 8.5 - 10.5 12/08/2014 [facility] CHEM PANEL AGAP 13.0 10.0 - 20.0 12/08/2014 [facility] Platelet 316 133 - 450 12/08/2014 [facility] RDW 16.5 11.5 - 14.5 12/08/2014 [facility] MPV 7.9 7.4 - 10.4 12/08/2014 [facility] Hct 38.0 36.0 - 48.0 12/08/2014 [facility] MCV 82.9 80.0 - 98.0 12/08/2014 [facility] MCH 27.0 27.0 - 31.0 12/08/2014 [facility] MCHC 32.6 32.0 - 36.0 12/08/2014 [facility] WBC 6.0 3.7 - 10.4 12/08/2014 [facility] RBC 4.59 4.20 - 5.40 12/08/2014 [facility] Hgb 12.4 12.0 - 16.0 12/08/2014 [facility] Lymphocytes # 2.5 1.0 - 5.5 12/08/2014 [facility] Segs-Bands # 2.5 1.5 - 8.1 12/08/2014 [facility] Eosinophils # 0.3 0.0 - 0.5 12/08/2014 [facility] Monocytes # 0.6 0.0 - 0.8 12/08/2014 [facility] Basophils # 0.1 0.0 - 0.2 12/08/2014 [facility] Lymphocytes 42.1 20.0 - 40.0 12/08/2014 [facility] HEMATOLOGY Monocytes 10.5 2.0 - 12.0 12/08/2014 [facility] HEMATOLOGY Basophils 1.1 0.0 - 1.0 12/08/2014 [facility] HEMATOLOGY Eosinophils 4.2 0.0 - 4.0 12/08/2014 [facility] HEMATOLOGY Segs 42.1 45.0 - 75.0 12/08/2014 [facility] LIPIDS VLDL 31 12/08/2014 [facility] LIPIDS LDL (Calculated) 214 <=99 mg/dL 12/08/2014 [facility] LIPIDS HDL 43 >=61 mg/dL 12/08/2014 [facility] LIPIDS Chol 288 <=199 mg/dL 12/08/2014 [facility] LIPIDS Trig 153 <=149 mg/dL 12/08/2014 [facility] LIPIDS CHD Risk 6.70 3.90 - 5.80 12/08/2014 [facility] CARDIAC ENZYMES Troponin-I <0.02 0.00 - 0.40 12/08/2014 [facility] CHEM PANEL Lipase Lvl 64 73 - 393 12/08/2014 [facility] CARDIAC ENZYMES BNP 8 <=100 pg/mL 12/08/2014 [facility] CARDIAC ENZYMES Troponin-I <0.02 0.00 - 0.40 12/07/2014 [facility] CARDIAC ENZYMES CK MB Index 0.9 0.0 - 2.5 12/07/2014 [facility] CARDIAC ENZYMES CK MB 1.1 0.5 - 3.6 12/07/2014 [facility] CARDIAC ENZYMES Total CK 116 12 - 191 12/07/2014 [facility] CHEM PANEL Albumin Lvl 3.6 3.5 - 5.0 12/07/2014 [facility] CHEM PANEL eGFR 64 12/07/2014 Result Comment: [...] Total Protein 7.7 6.4 - 8.4 12/07/2014 [facility] CHEM PANEL Bili Total 0.5 0.2 - [...] PANEL BUN 14 7 - 22 12/07/2014 [facility] CHEM PANEL Glucose Lvl 97 70 - 99 12/07/2014 [facility] CHEM PANEL AGAP 12.1 10.0 - 20.0 12/07/2014 [facility] CHEM PANEL CO2 25 24 - 32 12/07/2014 [facility] CHEM PANEL Alk Phos 158 39 - 136 12/07/2014 [facility] HEMATOLOGY PTT 29.0 22.9 - 35.8 12/07/2014 [facility] HEMATOLOGY PT 13.5 12.0 - 14.7 12/07/2014 [facility] HEMATOLOGY INR 1.00 0.85 - 1.17 12/07/2014 [facility] HEMATOLOGY Segs-Bands # 3.1 1.5 - 8.1 12/07/2014 [facility] HEMATOLOGY Eosinophils # 0.1 0.0 - 0.5 12/07/2014 [facility] HEMATOLOGY Monocytes # 0.6 0.0 - 0.8 12/07/2014 [facility] HEMATOLOGY Lymphocytes # 2.7 1.0 - 5.5 12/07/2014 [facility] HEMATOLOGY Basophils 0.6 0.0 - 1.0 12/07/2014 [facility] HEMATOLOGY Monocytes 9.1 2.0 - 12.0 12/07/2014 [facility] HEMATOLOGY Eosinophils 2.2 0.0 - 4.0 12/07/2014 [facility] Lymphocytes 41.1 20.0 - 40.0 12/07/2014 [facility] Segs 47.0 45.0 - 75.0 12/07/2014 [facility] MPV 8.0 7.4 - 10.4 12/07/2014 [facility] MCHC 32.5 32.0 - 36.0 12/07/2014 [facility] RDW 16.5 11.5 - 14.5 12/07/2014 [facility] Platelet 330 133 - 450 12/07/2014 [facility] Hct 38.9 36.0 - 48.0 12/07/2014 [facility] MCV 82.8 80.0 - 98.0 12/07/2014 [facility] MCH 26.9 27.0 - 31.0 12/07/2014 [facility] WBC 6.6 3.7 - 10.4 12/07/2014 [facility] RBC 4.70 4.20 - 5.40 12/07/2014 [facility] Hgb 12.6 12.0 - 16.0 12/07/2014 [facility] ELECTROLYTES AGAP 13.1 10.0 - 20.0 11/30/2014 [facility] ELECTROLYTES Glucose Lvl 106 70 - 99 11/30/2014 [facility] ELECTROLYTES BUN 18 7 - 22 11/30/2014 [facility] ELECTROLYTES CO2 24 24 - 32 11/30/2014 [facility] ELECTROLYTES Chloride Lvl 107 95 - 109 11/30/2014 [facility] ELECTROLYTES Sodium Lvl 140 135 - 145 11/30/2014 [facility] ELECTROLYTES Potassium Lvl 4.1 3.5 - 5.1 11/30/2014 [facility] ELECTROLYTES eGFR 73 11/30/2014 Result Comment: The [...] should be multiplied by the estimated BMI. [facility] ELECTROLYTES Creatinine Lvl 0.9 0.5 - 1.4 11/30/2014 [facility] ELECTROLYTES Calcium Lvl 8.6 8.5 - 10.5 11/30/2014 [facility] HEMATOLOGY Basophils # 0.3 0.0 - 0.2 11/30/2014 [facility] HEMATOLOGY Eosinophils # 0.4 0.0 - 0.5 11/30/2014 [facility] HEMATOLOGY Lymphocytes # 2.9 1.0 - 5.5 11/30/2014 [facility] HEMATOLOGY Monocytes # 0.6 0.0 - 0.8 11/30/2014 [facility] HEMATOLOGY Basophils 5.0 0.0 - 1.0 11/30/2014 [facility] HEMATOLOGY Segs-Bands # 2.0 1.5 - 8.1 11/30/2014 [facility] HEMATOLOGY Segs 32.0 45.0 - 75.0 11/30/2014 [facility] Lymphocytes 46.7 20.0 - 40.0 11/30/2014 [facility] Monocytes 10.2 2.0 - 12.0 11/30/2014 [facility] HEMATOLOGY Eosinophils 6.1 0.0 - 4.0 11/30/2014 [facility] MPV 8.0 7.4 - 10.4 11/30/2014 [facility] RDW 16.1 11.5 - 14.5 11/30/2014 [facility] Platelet 245 133 - 450 11/30/2014 [facility] MCH 28.3 27.0 - 31.0 11/30/2014 [facility] MCHC 33.8 32.0 - 36.0 11/30/2014 [facility] HEMATOLOGY MCV 83.7 80.0 - 98.0 11/30/2014 [facility] HEMATOLOGY Hct 33.9 36.0 - 48.0 11/30/2014 [facility] HEMATOLOGY RBC 4.05 4.20 - 5.40 11/30/2014 [facility] Hgb 11.5 12.0 - 16.0 11/30/2014 [facility] HEMATOLOGY WBC 6.1 3.7 - 10.4 11/30/2014 [...] PANEL CO2 26 24 - 32 11/28/2014 [facility] CHEM PANEL Creatinine Lvl 0.9 0.5 - 1.4 11/28/2014 [facility] CHEM PANEL Glucose Lvl 107 70 - 99 11/28/2014 [facility] CHEM PANEL Calcium Lvl 8.8 8.5 - 10.5 11/28/2014 [facility] CHEM PANEL Chloride Lvl 105 95 - 109 11/28/2014 [facility] CHEM PANEL Potassium Lvl 3.7 3.5 - 5.1 11/28/2014 [facility] CHEM PANEL Sodium Lvl 142 135 - 145 11/28/2014 [facility] CHEM PANEL AGAP 14.7 10.0 - 20.0 11/28/2014 [facility] CHEM PANEL Bili Indirect 0.3 0.0 - 1.0 11/28/2014 [facility] CHEM PANEL Bili Total 0.4 0.2 - 1.3 11/28/2014 [facility] CHEM PANEL Bili Direct 0.1 0.0 - 0.3 11/28/2014 [facility] CHEM PANEL AST 26 0 - 37 11/28/2014 [facility] CHEM PANEL Alk Phos 146 39 - 136 11/28/2014 [facility] CHEM PANEL Albumin Lvl 3.0 3.5 - 5.0 11/28/2014 [facility] CHEM PANEL A/G Ratio 1.0 0.7 - 1.6 11/28/2014 [facility] CHEM PANEL Total Protein 5.9 6.4 - 8.4 11/28/2014 [facility] CHEM PANEL Globulin 2.9 2.0 - 4.0 11/28/2014 [facility] CHEM PANEL ALT 49 0 - 65 11/28/2014 [facility] HEMATOLOGY MPV 7.7 7.4 - 10.4 11/28/2014 [facility] HEMATOLOGY Hct 36.5 36.0 - 48.0 11/28/2014 [facility] HEMATOLOGY Hgb 12.5 12.0 - 16.0 11/28/2014 [facility] HEMATOLOGY RBC 4.47 4.20 - 5.40 11/28/2014 [facility] HEMATOLOGY Platelet 285 133 - 450 11/28/2014 [facility] HEMATOLOGY RDW 16.0 11.5 - 14.5 11/28/2014 [facility] HEMATOLOGY MCHC 34.3 32.0 - 36.0 11/28/2014 [facility] HEMATOLOGY MCH 28.0 27.0 - 31.0 11/28/2014 [facility] HEMATOLOGY MCV 81.7 80.0 - 98.0 11/28/2014 [facility] HEMATOLOGY WBC 5.9 3.7 - 10.4 11/28/2014 [facility] HEMATOLOGY Monocytes 10.2 2.0 - 12.0 11/28/2014 [facility] HEMATOLOGY Lymphocytes 36.4 20.0 - 40.0 11/28/2014 [facility] HEMATOLOGY Segs 45.5 45.0 - 75.0 11/28/2014 [facility] HEMATOLOGY Basophils # 0.1 0.0 - 0.2 11/28/2014 [facility] HEMATOLOGY Eosinophils # 0.3 0.0 - 0.5 11/28/2014 [facility] HEMATOLOGY Monocytes # 0.6 0.0 - 0.8 11/28/2014 [facility] HEMATOLOGY Lymphocytes # 2.2 1.0 - 5.5 11/28/2014 [facility] HEMATOLOGY Segs-Bands # 2.7 1.5 - 8.1 11/28/2014 [facility] HEMATOLOGY Basophils 2.5 0.0 - 1.0 11/28/2014 [facility] HEMATOLOGY Eosinophils 5.4 0.0 - 4.0 11/28/2014 [facility] CHEM PANEL Lipase Lvl 107 73 - 393 11/25/2014 [facility] ELECTROLYTES Sodium Lvl 141 135 - 145 11/25/2014 [facility] ELECTROLYTES Potassium Lvl 3.5 3.5 - 5.1 11/25/2014 [facility] ELECTROLYTES Chloride Lvl 110 95 - 109 11/25/2014 [facility] ELECTROLYTES eGFR 84 11/25/2014 Result Comment: The [...] should be multiplied by the estimated BMI. [facility] ELECTROLYTES Albumin Lvl 3.1 3.5 - 5.0 11/25/2014 [facility] ELECTROLYTES Alk Phos 182 39 - 136 11/25/2014 [facility] ELECTROLYTES Bili Total 0.5 0.2 - 1.3 11/25/2014 [facility] ELECTROLYTES ALT 95 0 - 65 11/25/2014 [facility] ELECTROLYTES AST 63 0 - 37 11/25/2014 [facility] ELECTROLYTES Glucose Lvl 89 70 - 99 11/25/2014 [facility] ELECTROLYTES BUN 9 7 - 22 11/25/2014 [facility] ELECTROLYTES Creatinine Lvl 0.8 0.5 - 1.4 11/25/2014 [facility] ELECTROLYTES Total Protein 6.6 6.4 - 8.4 11/25/2014 [facility] ELECTROLYTES CO2 21 24 - 32 11/25/2014 [facility] ELECTROLYTES Calcium Lvl 8.4 8.5 - 10.5 11/25/2014 [facility] ELECTROLYTES A/G Ratio 0.9 0.7 - 1.6 11/25/2014 [facility] ELECTROLYTES AGAP 13.5 10.0 - 20.0 11/25/2014 [facility] ELECTROLYTES B/C Ratio 11 6 - 25 11/25/2014 [facility] ELECTROLYTES Globulin 3.5 2.0 - 4.0 11/25/2014 [facility] HEMATOLOGY WBC 5.9 3.7 - 10.4 11/25/2014 [facility] HEMATOLOGY MCV 82.2 80.0 - 98.0 11/25/2014 [facility] HEMATOLOGY RBC 4.42 4.20 - 5.40 11/25/2014 [facility] HEMATOLOGY Hct 36.3 36.0 - 48.0 11/25/2014 [facility] HEMATOLOGY Hgb 12.3 12.0 - 16.0 11/25/2014 [facility] HEMATOLOGY MPV 7.9 7.4 - 10.4 11/25/2014 [facility] HEMATOLOGY MCHC 33.8 32.0 - 36.0 11/25/2014 [facility] HEMATOLOGY MCH 27.8 27.0 - 31.0 11/25/2014 [facility] HEMATOLOGY Platelet 283 133 - 450 11/25/2014 [facility] HEMATOLOGY RDW 16.0 11.5 - 14.5 11/25/2014 [facility] HEMATOLOGY Lymphocytes # 3.1 1.0 - 5.5 11/25/2014 [facility] HEMATOLOGY Segs-Bands # 1.9 1.5 - 8.1 11/25/2014 [facility] HEMATOLOGY Eosinophils # 0.3 0.0 - 0.5 11/25/2014 [facility] HEMATOLOGY Basophils # 0.1 0.0 - 0.2 11/25/2014 [facility] HEMATOLOGY Monocytes # 0.4 0.0 - 0.8 11/25/2014 [facility] HEMATOLOGY Monocytes 7.1 2.0 - 12.0 11/25/2014 [facility] HEMATOLOGY Lymphocytes 53.4 20.0 - 40.0 11/25/2014 [facility] HEMATOLOGY Basophils 2.1 0.0 - 1.0 11/25/2014 [facility] HEMATOLOGY Eosinophils 4.6 0.0 - 4.0 11/25/2014 [facility] HEMATOLOGY Segs 32.8 45.0 - 75.0 11/25/2014 [facility] CHEM PANEL Magnesium Lvl 1.9 1.8 - 2.4 11/25/2014 [facility] CHEM PANEL Amylase Lvl 50 25 - 115 11/25/2014 [facility] CHEM PANEL Lipase Lvl 111 73 - 393 11/25/2014 [facility] CHEM PANEL Globulin 3.4 2.0 - 4.0 11/25/2014 [facility] CHEM PANEL B/C Ratio 12 6 - 25 11/25/2014 [facility] CHEM PANEL A/G Ratio 0.9 0.7 - 1.6 11/25/2014 [facility] CHEM PANEL Bili Total 0.6 0.2 - 1.3 11/25/2014 [facility] CHEM PANEL ALT 111 0 - 65 11/25/2014 [facility] CHEM PANEL AST 83 0 - 37 11/25/2014 [facility] CHEM PANEL Albumin Lvl 3.2 3.5 - 5.0 11/25/2014 [facility] CHEM PANEL Alk Phos 192 39 - 136 11/25/2014 [facility] CHEM PANEL Total Protein 6.6 6.4 - 8.4 11/25/2014 [facility] URINE AND STOOL UA Urobilinogen <=1.0 mg/dL 0.1 - 1.0 2014 [facility] URINE AND STOOL UA RBC 1 0 - 2 2014 [facility] URINE AND STOOL UA Mucus Few /LPF None Seen /LPF 2014 [facility] URINE AND STOOL UA Turbidity Clear (11/23/14 11:47 PM) Clear 2014 [facility] URINE AND STOOL UA Spec Grav 1.023 <=1.030 2014 [facility] URINE AND STOOL UA Color Yellow *NA* (11/23/14 11:47 PM) Yellow 2014 [facility] URINE AND STOOL UA Bili Negative *NA* (11/23/14 11:47 PM) Negative 2014 [facility] URINE AND STOOL UA Glucose Negative mg/dL Negative mg/dL 2014 [facility] URINE AND STOOL UA Ketones Negative mg/dL Negative mg/dL [address] [facility] [address] URINE AND STOOL UA Protein Negative mg/dL Negative mg/dL 2014 [facility] URINE AND STOOL UA pH 5.0 5.0 - 8.0 2014 [facility] URINE AND STOOL UA Sq Epi Few /LPF Few /LPF 2014 [facility] URINE AND STOOL UA WBC 12 0 - 5 2014 [facility] URINE AND STOOL UA Leuk Est Trace *ABN* (11/23/14 11:47 PM) Negative 2014 [facility] URINE AND STOOL UA Blood Negative (11/23/14 11:47 PM) Negative 2014 [facility] URINE AND STOOL UA Nitrite Negative (11/23/14 11:47 PM) Negative 2014 [facility] CARDIAC ENZYMES CK MB Index 1.0 0.0 - 2.5 2014 [facility] CARDIAC ENZYMES CK MB 0.8 0.5 - 3.6 2014 [facility] CARDIAC ENZYMES Total CK 81 12 - 191 2014 [facility] CARDIAC ENZYMES Troponin-I <0.02 0.00 - 0.40 2014 [facility] CHEM PANEL Lactic Acid Lvl 1.0 0.5 - 2.2 2014 [facility] CHEM PANEL Lipase Lvl 479 73 - 393 2014 [facility] CHEM PANEL Amylase Lvl 86 25 - 115 2014 [facility] HEMATOLOGY INR 0.91 0.85 - 1.17 11/23/2014 [facility] HEMATOLOGY PT 12.2 12.0 - 14.7 11/23/2014 [facility] HEMATOLOGY PTT 29.7 22.9 - 35.8 11/23/2014 [facility] CARDIAC ENZYMES BNP 9 <=100 pg/mL 11/23/2014 [facility] CARDIAC ENZYMES Troponin-I <0.02 0.00 - 0.40 11/23/2014 [facility] CARDIAC ENZYMES Total CK 77 12 - 191 11/23/2014 [facility] CARDIAC ENZYMES CK MB 0.9 0.5 - 3.6 11/23/2014 [facility] CARDIAC ENZYMES CK MB Index 1.2 0.0 - 2.5 11/23/2014 [facility] CHEM PANEL Magnesium Lvl 1.7 1.8 - 2.4 11/23/2014 [facility] CHEM PANEL B/C Ratio 19 6 - 25 11/23/2014 [facility] CARDIAC ENZYMES Total CK 67 12 - 191 09/18/2014 [facility] CARDIAC ENZYMES Troponin-I <0.02 0.00 - 0.40 09/18/2014 [facility] CARDIAC ENZYMES Total CK 62 12 - 191 09/18/2014 [facility] CARDIAC ENZYMES Troponin-I <0.02 0.00 - 0.40 09/18/2014 [facility] LIPIDS VLDL 29 09/18/2014 [facility] LIPIDS LDL (Calculated) 140 <=99 mg/dL 09/18/2014 [facility] LIPIDS Trig 147 <=149 mg/dL 09/18/2014 [facility] LIPIDS CHD Risk 3.86 3.90 - 5.80 09/18/2014 [facility] LIPIDS Chol 228 <=199 mg/dL 09/18/2014 [facility] LIPIDS HDL 59 >=61 mg/dL 09/18/2014 [facility] CARDIAC ENZYMES Troponin-I <0.02 0.00 - 0.40 09/18/2014 [facility] CARDIAC ENZYMES Total CK 59 12 - 191 09/18/2014 [facility] CHEM PANEL eGFR 85 09/18/2014 <sup>1</sup>Result Comment: [...] values reflect the clinical guidelines
of the [employer]. [facility] CHEM PANEL Globulin 3.2 2.0 - 4.0 09/18/2014 [facility] CHEM PANEL B/C Ratio 22 6 - 25 09/18/2014 [facility] CHEM PANEL AGAP 10.6 10.0 - 20.0 09/18/2014 [facility] CHEM PANEL A/G Ratio 1.1 0.7 - 1.6 09/18/2014 [facility] PTT 28.8 22.9 - 35.8 09/18/2014 <sup>4</sup>Interpretive Data: Heparin T herapeutic Range: 57 - 92 Seconds [facility] PT 12.5 12.0 - 14.7 09/18/2014 [facility] INR 0.94 0.85 - 1.17 09/18/2014 <sup>3</sup>Interpretive Data: RECOMMEND ED RANGES FOR PROTIME INR:
2.0- 3.0 for most medical and surgical thromboembolic states.
2.5-3.5 for artificial heart valves and recurrent embolism.

INR SHOULD BE USED ONLY FOR PATIENTS ON STABLE ANTICOAGULANT THERAPY. [facility] MPV 7.4 7.4 - 10.4 09/18/2014 [facility] MCHC 34.1 32.0 - 36.0 09/18/2014 [facility] RDW 16.8 11.5 - 14.5 09/18/2014 [facility] Platelet 353 133 - 450 09/18/2014 [facility] Hgb 11.4 12.0 - 16.0 09/18/2014 [facility] MCV 83.0 80.0 - 98.0 09/18/2014 [facility] MCH 28.3 27.0 - 31.0 09/18/2014 [facility] Hct 33.4 36.0 - 48.0 09/18/2014 [facility] RBC 4.03 4.20 - 5.40 09/18/2014 [facility] WBC 7.0 3.7 - 10.4 09/18/2014 [facility] Lymphocytes # 3.7 1.0 - 5.5 09/18/2014 [facility] Monocytes # 0.6 0.0 - 0.8 09/18/2014 [facility] Eosinophils # 0.1 0.0 - 0.5 09/18/2014 [facility] Lymphocytes 52.2 20.0 - 40.0 09/18/2014 [facility] Basophils 0.2 0.0 - 1.0 09/18/2014 [facility] HEMATOLOGY Eosinophils 1.8 0.0 - 4.0 09/18/2014 [facility] HEMATOLOGY Segs-Bands # 2.6 1.5 - 8.1 09/18/2014 [facility] HEMATOLOGY Monocytes 8.1 2.0 - 12.0 09/18/2014 [facility] HEMATOLOGY Segs 37.7 45.0 - 75.0 09/18/2014 [facility] Pathology Reports No Data Provided for This [...] perfusion study. Normal resting LV function. 04/12/2016 [facility] 1view DX Clinical Indica tion: Chest pain [...] 1. Unremarkable chest x-ray. ANGELIC BELL 04/11/2016 [facility] Pulmonary Embolism CTA ADDENDUM: TECHNIQUE: Thin collimation [...] effus ion, or pneumothorax. SL: 12 12/07/2014 [facility] Chest 1view DX EXAMINATION: est 1view CLINICAL [...] focal osseous lesion is appreciated. SL:17 12/07/2014 [facility] Cardiac SPECT multi studies NM PROCEDURE: Stress [...] study. Normal resting LV function. [place] Location[place] [facility] [place] [facility] Abdomen/Pelvis w IV contrast CT PROCEDURE: Abdomen/Pelvis [...] spondylosis. DLP: 1522 mGy-cm SL: 13 2014 [facility] 1view DX PORTABLE CHES T (chest 1 [...] prior cholecystectomy. Coding: Chest 1view CPT code: 37603 SL: 13 Amarjit Sanchez M.D. 11/23/2014 [facility] Chest 2 views DX EXAM: Chest 2 views HISTORY: Chest pain. COMPARISON: None. TECHNIQUE: Frontal and lateral views of the chest. FINDINGS: The lungs are well-inflated. No pneumonia, edema or pleural effusion. Heart size normal. Coronary artery stents. IMPRESSION: No acute findings in the chest. SL: 12 09/17/2014 [facility] Consultation Notes No Data Provided for This Section Discharge Summaries No Data Provided for This Section History and Physicals No Data Provided for This Section Vital Signs Vital Sign Value Date Comments Source Heart Rate 79 04/13/2016 [facility] Temperature Oral (F) 98.7 F 04/13/2016 [facility] Systolic (mm Hg) 130 04/13/2016 [facility] Diastolic (mm Hg) 82 04/13/2016 [facility] Respitory Rate 18 04/13/2016 [facility] Systolic (mm Hg) 128 04/13/2016 [facility] Diastolic (mm Hg) 86 04/13/2016 [facility] Temperature Oral (F) 98.7 F 04/13/2016 [facility] Respitory Rate 18 04/13/2016 [facility] Heart Rate 87 04/13/2016 [facility] Weight 75 0 04/13/2016 [facility] Height 177.8 cm 04/13/2016 [facility] BMI Calculated 23.72 04/13/2016 [facility] Systolic (mm Hg) 112 04/13/2016 [facility] Diastolic (mm Hg) 81 04/13/2016 [facility] Temperature Oral (F) 98.0 F 04/13/2016 [facility] Heart Rate 79 04/13/2016 [facility] Respitory Rate 18 04/13/2016 [facility] Weight 75 0 04/12/2016 [facility] BMI Calculated 23.72 04/12/2016 [facility] Height 177.8 cm 04/12/2016 [facility] Height 160.02 cm 04/12/2016 [facility] BMI Calculated 28.4 04/12/2016 [facility] Weight 72.727 04/12/2016 [facility] Weight 70.455 03/31/2016 [facility] Height 160.02 cm 03/31/2016 [facility] Systolic (mm Hg) 160 03/31/2016 [facility] Diastolic (mm Hg) 116 03/31/2016 [facility] Temperature Oral (F) 97.9 F 03/31/2016 [facility] Respitory Rate 18 03/31/2016 [facility] Heart Rate 99 03/31/2016 [facility] BMI Calculated 27.51 03/31/2016 [facility] Temperature Oral (F) 98.2 F 03/27/2016 [facility] Respitory Rate 16 03/27/2016 [facility] Heart Rate 92 03/27/2016 [facility] Systolic (mm Hg) 164 03/27/2016 [facility] Diastolic (mm Hg) 102 03/27/2016 [facility] Weight 72.727 03/27/2016 [facility] BMI Calculated 28.4 03/27/2016 [facility] Height 160.02 cm 03/27/2016 [facility] Respitory Rate 18 03/27/2016 [facility] Heart Rate 103 03/27/2016 [facility] Systolic (mm Hg) 142 03/27/2016 [facility] Diastolic (mm Hg) 103 03/27/2016 [facility] Temperature Oral (F) 98.3 F 03/27/2016 [facility] Respitory Rate 20 12/08/2014 [facility] Systolic (mm Hg) 139 12/08/2014 [facility] Diastolic (mm Hg) 89 12/08/2014 [facility] Weight 81.818 12/08/2014 [facility] Systolic (mm Hg) 121 12/08/2014 [facility] Diastolic (mm Hg) 84 12/08/2014 [facility] Respitory Rate 20 12/08/2014 [facility] Temperature Oral (F) 97.4 F 12/08/2014 [facility] Heart Rate 84 12/08/2014 [facility] Height 160.02 cm 12/08/2014 [facility] Weight 81.818 12/08/2014 [facility] BMI Calculated 31.95 12/08/2014 [facility] Temperature Oral (F) 97.5 F 12/08/2014 [facility] Heart Rate 95 12/08/2014 [facility] Systolic (mm Hg) 159 12/08/2014 [facility] Diastolic (mm Hg) 96 12/08/2014 [facility] Respitory Rate 20 12/08/2014 [facility] Temperature Oral (F) 97.7 F 12/08/2014 [facility] Weight 77.273 12/07/2014 [facility] BMI Calculated 30.18 12/07/2014 [facility] Height 160.02 cm 12/07/2014 [facility] Heart Rate 130 12/07/2014 [facility] Temperature Oral (F) 97.9 F 12/01/2014 [facility] Respitory Rate 15 12/01/2014 [facility] Systolic (mm Hg) 114 12/01/2014 [facility] Diastolic (mm Hg) 73 12/01/2014 [facility] Heart Rate 70 12/01/2014 [facility] Systolic (mm Hg) 121 12/01/2014 [facility] Diastolic (mm Hg) 84 12/01/2014 [facility] Respitory Rate 16 12/01/2014 [facility] Systolic (mm Hg) 155 12/01/2014 [facility] Diastolic (mm Hg) 101 12/01/2014 [facility] Heart Rate 81 12/01/2014 [facility] Temperature Oral (F) 98.1 F 12/01/2014 [facility] Respitory Rate 18 12/01/2014 [facility] Temperature Oral (F) 97.5 F 12/01/2014 [facility] Heart Rate 81 12/01/2014 [facility] Weight 81.818 11/26/2014 [facility] Height 160.02 cm 11/23/2014 [facility] Weight 81.818 11/23/2014 [facility] BMI Calculated 31.95 11/23/2014 [facility] Heart Rate 76 09/18/2014 [facility] Systolic (mm Hg) 120 09/18/2014 [facility] Diastolic (mm Hg) 77 09/18/2014 [facility] Temperature Oral (F) 97.9 F 09/18/2014 [facility] Respitory Rate 16 09/18/2014 [facility] Weight 79.545 09/18/2014 [facility] Height 160.02 cm 09/18/2014 [facility] BMI Calculated 31.06 09/18/2014 [facility] Heart Rate 91 09/18/2014 [facility] Respitory Rate 14 09/18/2014 [facility] Systolic (mm Hg) 166 09/18/2014 [facility] Diastolic (mm Hg) 116 09/18/2014 [facility] Temperature Oral (F) 98.3 F 09/18/2014 [facility] Temperature Oral (F) 98.0 F 09/18/2014 [facility] Systolic (mm Hg) 153 09/18/2014 [facility] Diastolic (mm Hg) 99 09/18/2014 [facility] Heart Rate 90 09/18/2014 [facility] Respitory Rate 18 09/18/2014 [facility] Height 160.02 cm 09/18/2014 [facility] BMI Calculated 31.06 09/18/2014 [facility] Weight 79.545 09/18/2014 [facility] Encounters Location Location Details Encounter Type Encounter Number Reason For Visit Attending Provider ADM Date DC Date Status Source [facility] OBS Observation Patient [id number] Ruddy Amato 09/17/2014 09/18/2014 [facility] Inpatient [id number] Chevy Callaway 11/23/2014 12/01/2014 [facility] OBS Observation Patient [id number] Liliana Lyles 12/07/2014 12/08/2014 [facility] Emergency [id number] Lokesh Aguilera 03/27/2016 03/27/2016 [facility] Emergency [id number] Rosa Lam 03/31/2016 03/31/2016 [facility] Observation [id number] Jenna Ceja 04/12/2016 04/13/2016 [facility] Procedures Procedure Code Date Perfomer Comments Source Hysterectomy [id number] [facility] Procedure on back [id number] [facility] Thyroidectomy [id number] [facility] CABG x 1 - Coronary artery bypass graft x 1<sup>1</sup > [id number] may 2015 [facility] Stent placement [id number] [facility] Cholecystectomy [id number] [facility] Assessment and Plan Assessment and Plan Date Source Extracted from:Title: Clinical Document Author: Gaurav Russo MD Date: 04/13/16 Progress Note Cardiology [facility] Impression: Atypical chest pain. [...] PO QID-Before Meals Continuous Infusions: None 04/13/2016 [facility] No Data Provided for This Section Social [...] stop now that has a job. 2014 [facility] Family History No Data Provided for This Section Advance Directives No Data Provided for This Section Functional Status No Data Provided for This Section
--- OUTSIDE RECORDS SUMMARY | 2019-08-31 13:49 | XMS REPORT ---
Author Author [facility] t Organization [facility] Address [address] [place] [address] Phone Unavailable Care Team Providers Care Machine Fancy Stitcher Name Role Phone Oumou HASTINGS Attphys Unavailable WHITLEY WHEELER Attphys Unavailable Mougouris, Taso Attphys Rosa Lam [...] [facility] Active 2016-03-27 00:00:00 2016-03-27 10:51:00 [facility] ACUTE CHEST PAIN. GASTRP ARESOS ACUTE CHEST PAIN. GASTRP ARESOS Active 04/11/2015 [facility] Active 2015-04-11 16:00: 00 2016-04-12 02:19:00 [facility] ACUTE CHEST PAIN GASTRPARESIS ACUTE CHEST PAIN GASTRPARESIS Active 04/11/2015 [facility] Active 04-11 16:00:00 2016-04-16 15:47:00 [facility] CHEST PAIN CHES T PAIN Active 12/07/2014 [facility] Diagnosis Active 2014-12-07 00:00:00 2016-08-13 10:57:00 [facility] ACUTE CHEST PAIN, RULE OUT ACS ACUTE CHEST PAIN, RULE OUT ACS Active 11/23/2014 [facility] Diagnosis Active 2014-11-23 00:00 :00 2016-05-08 18:50:00 [facility] Congestive heart failure (disorder) Congestive heart failure (disorder) Active Problem 04/16/2016 [facility] Problem Active 2016-04-16 03:18:48 [facility] Hypertensive disorder, systemic arterial (disorder) Hypertensive disorder, systemic arterial (disorder) Active Problem 04/16/2016 [facility] Problem Active 2016-04-16 03:18:48 [facility] Myocardial infarction (disorder) Myocardial infarction (disorder) Resolved Problem 04/16/2016 3 [facility] Problem Resolved 2016-04-16 03:18:48 [facility] 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) Brain injury wit hout open intracranial wound AND with no loss of consciousness (disorder) Resolved Problem 04/16/2016 from a ffall 10 months ago [facility] Problem Resolved 2016 03:18:48 [facility] CHEST PAIN NOS CHES T PAIN NOS Active [facility] Diagnosis Active 2016-05-08 18:50:00 [facility] CHEST PAIN, UNSPECIFIED CHES T PAIN, UNSPECIFIED Active [facility] Diagnosis Active 2016-04-16 15:47:00 [facility] GASTROPARESIS SLIME ROPARESIS Active [facility] Diagnosis Active 2016-04-16 15:47:00 [facility] Discharge Diagnosis: Dental caries, unspecified Discharge Diagnosis: Dental caries, unspecified 03/27/2016 03/30/2016 [facility] Problem 2016-03-27 06:00:00 2016-03-30 04:00:14 2016-03 04:00:14 [facility] Discharge Diagnosis: Other specified dis orders of teeth and supporting structures Discharge Diagno sis: Other specified disorders of teeth and supporting structures 03/27/2016 03/30/2016 [facility] Problem 2016-03-27 06:00:00 2016-03-30 04:00:14 2016-03-30 04:00:14 [facility] Discharge Diagnosis: Periapical abscess without sinus Discharge Diagnosis: Periapical abscess without sinus 03/27/2016 03/30/2016 [facility] Problem 2016-03-27 06:00:00 2016-03-30 04:00:14 2016-03 04:00:14 [facility] Allergies, Adverse Reactions, Alerts Allergy Name Allergy Type Status Severity Reaction(s) Onset Date Inacti ve Date Treating Clinician Comments Source Compazine Compazine Active [facility] penicillins penicillins Active [facility] Reglan Reglan Active [facility] Toradol Toradol Active [facility] Zofran Zofran Active [facility] Social History Social Habit Start Date Stop Date Quantity Comments Source Social History 2014 05:40:48 2014 05:40:48 [facility] Medications Ordered Medication Name Filled Medication Name Start Date Stop Da te Current Medication? Ordering Clinician Indication Dosage Frequency Signature (SIG) Comments Components Source Tylenol 2016-04-13 21:09:00 Yes Notes: Max acetaminophen = 4000mg/day (4 gm/day). (Same as: Tylenol) [facility] Acetaminophen 300 MG / Codeine Phosphate 30 MG Oral Tablet [Tylenol with Codeine #3] 2016-04-13 21:06:00 No 1 - 2 tab, PO, Q4H, PRN Pain, X 2 day, # 20 tab, 0 Refill(s) [facility] atorvastatin 40 mg oral tablet 2016-04-13 21:06:00 Yes 80 mg = 2 tab, PO, Bedtime, # 60 tab, 0 Refill(s) [facility] Morphine 2016-04-12 23:07:00 No Not es: (Same as:MORPhine Sulfate) [facility] pantoprazole 2016-04-12 22:30:00 No Notes: Tablet should not be chewed or crushed. (Same as: Protonix) [facility] Morphine 2016-04-12 18:11:00 No Not es: (Same as:MORPhine Sulfate) [facility] atorvastatin 2016-04-12 17:21:00 No Notes: (Same as: Lipitor) [facility] metoprolol tartrate 2016-04-12 15:00:00 No Notes: (Same as: Toprol XL) May split tab, but do not crush. [facility] Lisinopril 2016-04-12 15:00:00 No Notes: (Same as: Prinivil, Zestril) [facility] Plavix 2016-04-12 15:00:00 No Notes: (Same As: Plavix) [facility] Norvasc 2016-04-12 15:00:00 No Notes: (Same as: Norvasc) [facility] Saline Flush 0.9% 2016-04-12 15:00:00 No Notes: (Same as: BD Posiflush) [facility] heparin 2016-04-12 14:00:00 No Notes: porci ne heparin [facility] Sucralfate 100 MG/ML Oral Suspension [Carafate] 2016-04-12 13:30 :00 No Notes: May interfere w/enter al feeds - Take 1 hr before or 2 hr after antacids, dairy pdt, meals & minerals - On empty stomach. For patients unable to swallow tablet, dissolve in 10mL - 30mL of water or juice and stir before giving. (Same As: Carafate) [facility] 2016-04-12 12:30:00 No Notes: Take 1 hour before or 2 hours after meal; Enteral feeds may interefere with the absorption of this medication. (Same as: Levothroid) [facility] Aspirin 325 MG Oral Tablet 2016-04-12 12:00:00 No Notes: Take with food. [facility] Clonidine Hydrochloride 0.1 MG Oral Tablet 2016-04-12 10:40:00 No Notes: (Same As: Catapres) [facility] Acetaminophen 325 MG / Hydrocodone Bitartrate 5 MG Oral Tabl et [Grafton 5/325] 2016-04-12 10:39:00 No Notes: (Same as: Grafton 325/5) Do not exceed 4gm/day of acetaminophen. [facility] Ativan 2016-04-12 10:15:00 No Notes: (Same as: Ativan) [facility] Morphine 2016-04-12 10:14:00 No Not es: (Same as:MORPhine Sulfate) [facility] 24 HR tramadol hydrochloride 100 MG Extended Release Tablet 2016-04-12 10:04:00 Yes 100 mg = 1 tab, PO, Q4H, 0 Re fill(s) [facility] Amlodipine 10 MG Oral Tablet [Norvasc] 2016-04-12 10:04:00 Yes See Instructions, 1 tab PO Daily, 0 Refill(s) [facility] Saline Flush 0.9% 2016-04-12 09:31:00 No Notes: (Same as: BD Posiflush) [facility] Morphine 2016-04-12 09:31:00 No Not es: (Same as:MORPhine Sulfate) [facility] Nitroglycerin 2016-04-12 09:31:00 No Notes: (Same as:Nitroquick, Nitrostat) "Do Not Crush" Sublingual tablet [facility] Ativan 2016-04-12 07:56:00 No 0.5 mg, Route: IVP, Drug form: INJ, ONCE, Dosing Weight 72.727, kg, Priority: STAT, Start date: 04/12/16 1:56:00 LIME VAT TENDER, Stop date: 04/12/16 1:56:00 LIME VAT TENDER [facility] Morphine 2016-04-12 04:34:00 No Not es: (Same as:MORPhine Sulfate) [facility] Nitroglycerin 2016-04-12 04:31:00 No Notes: (Same as:Nitroquick, Nitrostat) "Do Not Crush" Sublingual tablet [facility] Famotidine 2016-04-12 03:47:00 No Notes: (Same as: Pepcid) Can be dilute in 5-10cc NS IVP: Slow IV push over at least 2 minutes. [facility] Saline Flush 0.9% 2016-04-12 03:47:00 No Notes: Same as: BD Posiflush Sterile [facility] Acetaminophen 300 MG / Codeine Phosphate 30 MG Oral Tablet [Tylenol with Codeine #3] 2016-03-27 16:39:00 Yes 1 - 2 tab, PO, Q4H, PRN Pain, X 3 day, # 20 tab, 0 Refill(s) [facility] Clindamycin 300 MG Oral Capsule [Cleocin] 2016-03-27 16:38:00 Yes 300 mg = 1 cap, PO, QID, X 10 day, # 40 cap, 0 Refill(s) [facility] Dilaudid 2016-03-27 16:29:00 No 0.5 mg, 0.5 mL, Route: IM, Drug form: INJ, ONCE, Dosing Weight 72.727, kg, Priority: STAT, Start date: 03/27/16 10:29:00 LIME VAT TENDER, Stop date: 03/27/16 10:29:00 LIME VAT TENDER [facility] Acetaminophen 325 MG / Hydrocodone Bitartrate 10 MG Or al Tablet [Grafton 10/325] 2016-03-27 16:26:00 No 1 ta b, Route: PO, Drug Form: TAB, Dosing Weight 72.727, kg, ONCE, STAT, Start date: 03/27/16 10:26:00 LIME VAT TENDER, Stop date: 03/27/16 10:26:00 LIME VAT TENDER [facility] Clindamycin 2016-03-27 16:25:00 No Notes: (clindamycin 150 mg/1 ml (600 mg/4 ml VL) INJ) (Same As: Cleocin) [facility] Thyroxine 2014-12-09 14:00:00 No Notes: Take 1 hour before or 2 hours after meal; Enteral feeds may interefere with the absorption of this medication. (Same as: Levothroid) [facility] Plavix 2014-12-09 14:00:00 No Notes: (Same As: Plavix) [facility] 24 HR Metoprolol Tartrate 50 MG Extended Release Tablet [Top rol] 2014-12-09 14:00:00 No Notes: (Sa me as: Toprol XL) May split tab, but do not crush. [facility] Lisinopril 2014-12-08 22:00:00 No Notes: (Same as: Prinivil, Zestril) [facility] pantoprazole 2014-12-08 21:30:00 No Notes: Tablet should not be chewed or crushed. (Same as: Protonix) [facility] Sucralfate 100 MG/ML Oral Suspension [Carafate] 2014-12-08 18:00 :00 No Notes: Enteral feeds may int erfere with the absorption of this medication. Shake well. Take 1 hr before or 2 hrs after antacids, dairy pdt, minerals & meals. (Same As: Carafate) [facility] Erythromycin 250 MG Enteric Coated Tablet 2014-12-08 17:00:00 No Notes: (Same as: Brenton-Tab) Give With Food "Do Not Crush" [facility] Sucralfate 100 MG/ML Oral Suspension [Carafate] 2014-12-08 16:49 :00 Yes 1 gm = 10 ml, PO, QID-Before Meals, # 1200 mL, 0 Refil l(s) [facility] tramadol hydrochloride 50 MG Oral Tablet 2014-12-08 16:49:00 Yes 50 mg = 1 tab, PO, Q6H, PRN Pain, # 30 tab, 0 Refill(s) [facility] Aspirin 325 MG Oral Tablet 2014-12-08 16:39:00 No Notes: Take with food. [facility] Hyoscyamine 2014-12-08 16:30:00 No Notes: (Same as: Levsin) Take 30 min before meal [facility] Valium 2014-12-08 16:16:00 No Notes: (Same as: Valium) [facility] Clonidine Hydrochloride 0.1 MG Oral Tablet 2014-12-08 16:16:00 No Notes: (Same As: Catapres) [facility] Diazepam 10 MG Oral Tablet [Valium] 2014-12-08 09:35:00 Yes 10 mg = 1 tab, PO, TID, PRN Anxiety, 0 Refill(s) [facility] Temazepam 30 MG Oral Capsule [Restoril] 2014-12-08 09:35:00 Yes 30 mg = 1 cap, PO, Bedtime, PRN Sleep, 0 Refill(s) [facility] clopidogrel 75 MG Oral Tablet [Plavix] 2014-12-08 09:35:00 Yes 75 mg = 1 tab, PO, Daily, # 30 tab, 0 Refill(s) [facility] tramadol hydrochloride 50 MG Oral Tablet 2014-12-08 09:35:00 No 50 mg = 1 tab, PO, Q6H, PRN Pain, 0 Refill(s) [facility] promethazine 25 mg oral tablet 2014-12-08 09:35:00 Yes 25 mg = 1 tab, PO, Q4H, PRN Nausea/Vomiting, 0 Refill(s) [facility] pantoprazole 40 mg oral enteric coated tablet 2014-12-08 09:35:0 0 Yes 40 mg = 1 tab, PO, Before Dinner, 0 Refill(s) [facility] metoprolol 50 mg oral tablet, extended release 2014-12-08 09:35: 00 Yes 50 mg = 1 tab, PO, BID, 0 Refill(s) [facility] lisinopril 20 mg oral tablet 2014-12-08 09:35:00 Yes 20 mg = 1 tab, PO, BID, # 60 tab, 0 Refill(s) [facility] levothyroxine 200 mcg (0.2 mg) oral tablet 2014-12-08 09:35:00 Yes 200 microgram = 1 tab, PO, Daily, # 30 tab, 0 Refill(s) [facility] hyoscyamine 0.125 mg sublingual tablet 2014-12-08 09:35:00 Yes 0.125 mg = 1 tab, SL, Before Meals & Bedtime, 0 Refill(s) [facility] erythromycin 250 mg oral delayed release capsule 2014-12-08 09:35:00 Yes 250 mg = 1 cap, PO, Q6H, # 40 cap, 0 Refill(s) [facility] Clonidine Hydrochloride 0.1 MG Oral Tablet 2014-12-08 09:35:00 Yes 0.1 mg = 1 tab, PO, TID, PRN Hypertension, 0 Refill(s) [facility] Aspirin 325 MG Oral Tablet 2014-12-08 09:35:00 Yes 325 mg = 1 tab, PO, Daily, # 30 tab, 0 Refill(s) [facility] Phenergan 2014-12-08 09:10:00 No Notes: Do not give IV push. (Same as: Phenergan) [facility] Morphine 2014-12-08 09:07:00 No Not es: (Same as:MORPhine Sulfate) [facility] Sodium Chloride 0.154 MEQ/ML Injectable Solution 2014-12-08 09:0 7:00 No 1,000 mL, Rate: 125 ml/hr, I nfuse over: 8 hr, Route: IV, Dosing Weight 81.818 kg, Total Volume: 1,000, Start date: 12/08/14 4:07:00, Duration: 30 day, Stop date: 01/07/15 4:06:00 [facility] Saline Flush 0.9% 2014-12-08 09:07:00 No Notes: (Same as: BD Posiflush) [facility] nitroglycerin 0.4 mg sublingual tablet 2014-12-08 08:28:00 No Notes: (Same as:Nitroquick, Nitrostat) "Do Not Crush" Sublingual tablet [facility] atropine 2014-12-08 08:28:00 No 0.5 mg, 5 mL, Route: IVP, Drug form: INJ, PRN, PRN Bradycardia, Start date: 12/08/14 3:28:00, Duration: 30 day, Stop date: 01/07/15 3:27:00 [facility] Furosemide 20 MG Oral Tablet [Lasix] 2014-12-08 07:57:00 No 20 mg = 1 tab, PO, Daily, 0 Refill(s) [facility] Labetalol 2014-12-08 06:13:00 No Notes: (Same as: Normodyne, Trandate) Push over 2 minutes Give bolus over 2-3 minutes. [facility] Nitroglycerin 0.4 MG Sublingual Tablet [Nitrostat] 06:01:00 No Notes: (Same as:Nitroquick, Nitr ostat) "Do Not Crush" Sublingual tablet [facility] Phenergan 2014-12-08 05:34:00 No 12.5 mg, Route: IVPB, ONCE, Dosing Weight 77.273, kg, Priority: STAT, Start date: 12/08/14 0:34:00, Stop date: 12/08/14 0:34:00 [facility] Morphine 2014-12-08 05:34:00 No 4 mg, Route: IVP, Drug form: INJ, ONCE, Dosing Weight 77.273, kg, Priority: STAT, Start date: 12/08/14 0:34:00, Stop date: 12/08/14 0:34:00 [facility] Morphine 2014-12-08 05:26:00 No 4 mg, Route: IVP, Drug form: INJ, ONCE, Dosing Weight 77.273, kg, Priority: STAT, Start date: 12/08/14 0:26:00, Stop date: 12/08/14 0:26:00 [facility] 2014-12-08 05:25:00 No 12.5 mg, Route: IVPB, ONCE, Dosing Weight 77.273, kg, Priority: STAT, Start date: 12/08/14 0:25:00, Stop date: 12/08/14 0:25:00 [facility] Bentyl 2014-12-08 04:41:00 No 20 mg, Route: PO, ONCE, Dosing Weight 77.273, kg, Start date: 12/07/14 23:41:00, Stop date: 12/07/14 23:41:00 [facility] 2014-12-08 03:35:00 No 4 mg, Route: IVP, Drug form: INJ, ONCE, Dosing Weight 77.273, kg, Priority: STAT, Start date: 12/07/14 22:35:00, Stop date: 12/07/14 22:35:00 [facility] GI cocktail 2014-12-08 01:59:00 No Notes: G.I. Cocktail = antacid with simethicone 22.5 mL - lidocaine viscous 7.5 mL [facility] Morphine 2014-12-08 01:58:00 No 4 mg, Route: IVP, Drug form: INJ, ONCE, Dosing Weight 77.273, kg, Priority: STAT, Start date: 12/07/14 20:58:00, Stop date: 12/07/14 20:58:00 [facility] Protonix 2014-12-08 01:58:00 No 40 mg, Route: IVP, ONCE, Dosing Weight 77.273, kg, Priority: STAT, Start date: 12/07/14 20:58:00, Stop date: 12/07/14 20:58:00 [facility] Clonidine 2014-12-08 00:49:00 No 0.1 mg, Route: PO, Drug form: TAB, ONCE, Dosing Weight 77.273, kg, Priority: STAT, Start date: 12/07/14 19:49:00, Stop date: 12/07/14 19:49:00 [facility] Phenergan 2014-12-08 00:49:00 No 12.5 mg, Route: IVPB, ONCE, Dosing Weight 77.273, kg, Priority: STAT, Start date: 12/07/14 19:49:00, Stop date: 12/07/14 19:49:00 [facility] Sodium Chloride 0.154 MEQ/ML Injectable Solution 2014-12-08 00:4 8:00 No 1,000 mL, 1,000 ml/hr, Infus e Over: 1 hr, Route: IV, ONCE, Priority: STAT, Dosing Weight 77.273 kg, Start date: 12/07/14 19:48:00, Duration: 1 doses or times, Stop date: 12/07/14 19:48:00 [facility] outhea metoprolol tartrate 50 mg oral tablet 2014-12-01 21:20:58 Y es 50 mg = 1 tab, PO, Q12H, # 120 tab, 0 Refill(s) [facility] lisinopril 20 mg oral tablet 2014-12-01 21:20:56 Yes 20 mg = 1 tab, PO, BID, # 60 tab, 0 Refill(s) Edgar leticia clopidogrel 75 MG Oral Tablet [Plavix] 2014-12-01 21:20:47 Yes 75 mg = 1 tab, PO, Daily, # 30 tab, 0 Refill(s) [facility] Aspirin 325 MG Oral Tablet 2014-12-01 21:20:16 Yes 325 mg, PO, Daily, # 30 tab, 0 [facility] Tem[facility] 30 MG Oral Capsule [Restoril] 2014-12-01 21:19:00 Yes 30 mg = 1 cap, PO, Bedtime, X 7 day, # 7 cap, 0 Refill(s) [facility] Diazepam 10 MG Oral Tablet [Valium] 2014-12-01 21:19:00 Yes 10 mg = 1 tab, PO, TID, PRN Anxiety, X 7 day, # 21 tab, 0 Refill(s) [facility] levothyroxine 200 mcg (0.2 mg) oral tablet 2014-12-01 21:19:00 Yes 200 microgram = 1 tab, PO, Daily, # 30 tab, 0 Refill(s) [facility] Clonidine Hydrochloride 0.1 MG Oral Tablet 2014-12-01 21:19:00 Yes 0.1 mg = 1 tab, PO, TID, PRN Hypertension, # 90 tab, 0 Refill(s) [facility] tramadol hydrochloride 50 MG Oral Tablet 2014-12-01 21:19:00 Yes 50 mg = 1 tab, PO, Q6H, PRN Pain, X 10 day, # 40 tab, 0 Refill(s) [facility] erythromycin 250 mg oral tablet 2014-12-01 21:19:00 Yes 250 mg = 1 tab, PO, Q6H, X 10 day, # 40 tab, 0 Refill(s) [facility] promethazine 25 mg oral tablet 2014-12-01 21:19:00 Yes 25 mg = 1 tab, PO, Q4H, PRN Allergic reaction, X 7 day, # 42 tab, 0 Refill(s) [facility] pantoprazole 40 mg oral enteric coated tablet 2014-12-01 21:19:0 0 Yes 40 mg = 1 tab, PO, Before Dinner, # 30 tab, 0 Refill(s) [facility] hyoscyamine 0.125 mg sublingual tablet 2014-12-01 21:19:00 Yes 0.125 mg = 1 tab, PO, Before Meals & Bedtime, # 120 tab, 0 Refill(s) [facility] hydrOXYzine hydrochloride 10 mg/5 mL oral syrup 2014-11-29 23:24 :00 No Notes: (Same as: Atarax) [facility] Erythromycin Ethylsuccinate 40 MG/ML Oral Suspension 11-29 22:00:00 No Notes: (Same as: E.E.S.-400) [facility] Hydroxyzine 2014-11-29 21:45:00 No Notes: (Same as: Vistaril) Avoid alcohol. [facility] Tylenol 2014-11-28 16:53:00 No Notes: Do not exceed 4 gm/day. (Same as: Tylenol) [facility] Dilaudid 2014-11-28 16:53:00 No 1 mg, 1 mL, Route: IV, Drug form: INJ, Q4H, Dosing Weight 81.818, kg, PRN Pain Score 7-10, Start date: 11/28/14 11:53:00, Duration: 30 day, Stop date: 12/28/14 11:52:00 [facility] Levsin 2014-11-28 02:00:00 No Notes: (Same as: Levsin) Take 30 min before meal [facility] Protonix 2014-11-26 21:30:00 No Notes: Tablet should not be chewed or crushed. (Same as: Protonix) [facility] Levsin 2014-11-26 14:34:00 No Notes: (Same as: Levsin) Take 30 min before meal [facility] Sodium Chloride 0.154 MEQ/ML Injectable Solution 2014-11-26 13:1 5:00 No 500 mL, Rate: 25 ml/hr, Infu se over: 20 hr, Route: IV, Dosing Weight 81.818 kg, Total Volume: 500, Start date: 11/26/14 8:15:00, Duration: 1 day, Stop date: 11/27/14 8:14:00 [facility] Dilaudid 2014-11-25 22:51:00 No 1 mg, 1 mL, Route: IVP, Drug form: INJ, ONCE, Dosing Weight 81.818, kg, Priority: STAT, Start date: 11/25/14 17:51:00, Stop date: 11/25/14 17:51:00 [facility] Plavix 2014-11-25 14:00:00 No Notes: (Same As: Plavix) [facility] Aspirin 325 MG Oral Tablet 2014-11-25 14:00:00 No Notes: Take with food. [facility] Thyroxine 2014-11-25 11:30:00 No Notes: Take 1 hour before or 2 hours after meal; Enteral feeds may interefere with the absorption of this medication. (Same as: Levothroid) [facility] Famotidine 20 MG Oral Tablet 2014-11-25 02:00:00 No Notes: (Same as: Pepcid) [facility] Restoril 2014-11-25 02:00:00 No Notes: (Alexandro e As: Restoril) [facility] metoprolol tartrate 2014-11-25 02:00:00 No Notes: (Same as: Lopressor) [facility] Lisinopril 2014-11-25 02:00:00 No Notes: (Same as: Prinivil, Zestril) [facility] Lipitor 2014-11-25 02:00:00 No Notes: (Same as: Lipitor) [facility] Dilaudid 2014 22:16:00 No 0.5 mg, 0.5 mL, Route: IV, Drug form: INJ, Q3H, Dosing Weight 81.818, kg, PRN Pain Score 7-10, Start date: 11/24/14 17:16:00, Duration: 30 day, Stop date: 12/24/14 17:15:00 [facility] Acetaminophen 325 MG / Hydrocodone Bitartrate 10 MG Or al Tablet [Grafton 10/325] 2014 22:13:00 No Note s: Do not exceed 4gm/day of acetaminophen. (Same as: Grafton 325/10) [facility] Valium 2014 22:12:00 No Notes: (Same as: Valium) [facility] Phenergan 2014 06:07:00 No Notes: Do not give IV push. (Same as: Phenergan) [facility] Saline Flush 0.9% 2014 02:00:00 No Notes: (Same as: BD Posiflush) [facility] Dilaudid 2014-11-23 23:49:00 No 0.5 mg, 0.5 mL, Route: IV, Drug form: INJ, Q4H, Dosing Weight 81.818, kg, PRN Pain Score 7-10, Start date: 11/23/14 18:49:00, Duration: 30 day, Stop date: 12/23/14 18:48:00 [facility] Phenergan 2014-11-23 23:49:00 No Notes: (Sa me as: Phenergan) [facility] Magnesium Sulfate 2014-11-23 23:46:00 No 2 gm, 50 mL, Route: IVPB, Drug form: INJ, ONCE, Dosing Weight 81.818, kg, Total dose = 2 gm, Start date: 11/23/14 18:46:00, Duration: 1 doses or times, Stop date: 11/23/14 18:46:00 [facility] normal saline 0.9% IV 1,000 mL 2014-11-23 23:39:00 No 1,000 mL, Rate: 80 ml/hr, Infuse over: 12.5 hr, Route: IV, Dosing Weight 81.818 kg, Total Volume: 1,000, Start date: 11/23/14 18:39:00, Stop date: 12/23/14 18:38:00 [facility] nitroglycerin 0.4 mg sublingual tablet 2014-11-23 23:37:00 No Notes: (Same as:Nitroquick, Nitrostat) "Do Not Crush" Sublingual tablet [facility] atropine 2014-11-23 23:36:00 No 0.5 mg, 5 mL, Route: IVP, Drug form: INJ, PRN, PRN Bradycardia, Start date: 11/23/14 18:36:00, Duration: 30 day, Stop date: 12/23/14 18:35:00 [facility] Pepcid 2014-11-23 23:21:00 No Notes: (Same as: Pepcid) Can be dilute in 5-10cc NS IVP: Slow IV push over at least 2 minutes. [facility] Dilaudid 2014-11-23 22:57:00 No 1 mg, Route: IVP, ONCE, Dosing Weight 81.818, kg, Priority: STAT, Start date: 11/23/14 17:57:00, Stop date: 11/23/14 17:57:00 [facility] Benadryl 2014-11-23 22:56:00 No 25 mg, Route: IVP, ONCE, Dosing Weight 81.818, kg, PRN Allergic reaction, Start date: 11/23/14 17:56:00 [facility] Reglan 2014-11-23 22:55:00 No 10 mg, Route: IVP, ONCE, Dosing Weight 81.818, kg, Start date: 11/23/14 17:55:00, Stop date: 11/23/14 17:55:00 [facility] Clonidine Hydrochloride 0.1 MG Oral Tablet 2014-11-23 22:42:00 No 160 [facility] Droperidol 2014-11-23 22:42:00 No 0.625 mg, Route: IVP, ONCE, Dosing Weight 81.818, kg, PRN Nausea, Start date: 11/23/14 17:42:00, Stop date: 12/23/14 17:41:00 [facility] Saline Flush 0.9% 2014-11-23 22:17:00 No Notes: (Same as: BD Posiflush) [facility] Morphine 2014-11-23 22:17:00 No Not es: (Same as:MORPhine Sulfate) [facility] Nitroglycerin 2014-11-23 22:17:00 No Notes: (Same as:Nitroquick, Nitrostat) "Do Not Crush" Sublingual tablet [facility] Morphine 2014-11-23 20:34:00 No Not es: (Same as:MORPhine Sulfate) [facility] Clonidine Hydrochloride 0.1 MG Oral Tablet 2014-11-23 20:33:00 No Notes: (Same As: Catapres) [facility] Labetalol 2014-11-23 20:33:00 No Notes: (Same as: Normodyne, Trandate) Push over 2 minutes Give bolus over 2-3 minutes. [facility] Ativan 2014-11-23 19:33:00 No 1 mg, Route: PO, Drug form: TAB, ONCE, Dosing Weight 81.818, kg, Priority: STAT, Start date: 11/23/14 14:33:00, Stop date: 11/23/14 14:33:00 [facility] Nitroglycerin 2014-11-23 18:20:00 No Notes: (Same as:Nitroquick, Nitrostat) "Do Not Crush" Sublingual tablet [facility] Morphine 2014-11-23 18:13:00 No 4 mg, Route: IVP, Drug form: INJ, ONCE, Dosing Weight 81.818, kg, Priority: STAT, Start date: 11/23/14 13:13:00, Stop date: 11/23/14 13:13:00 [facility] 2014-11-23 17:33:00 No Notes: (Same as: BD Posiflush) [facility] multivitamin with minerals 2014-09-19 14:00:00 No Notes: (Same as:Thera-M, Theragran-M) Give with food. [facility] Thyroxine 2014-09-19 14:00:00 No Notes: Take 1 hour before or 2 hours after meal; Enteral feeds may interefere with the absorption of this medication.(Same as:Levothroid, Synthroid) [facility] Aspirin 325 MG Oral Tablet 2014-09-19 14:00:00 No 325 mg, Route: PO, Drug form: TAB, Daily, Dosing Weight 79.545, kg, Start date: 09/19/14 9:00:00, Duration: 30 day, Stop date: 10/18/14 9:00:00 [facility] Plavix 2014-09-19 14:00:00 No 75 mg, Route: PO, Drug form: TAB, Daily, Dosing Weight 79.545, kg, Start date: 09/19/14 9:00:00, Duration: 30 day, Stop date: 10/18/14 9:00:00 [facility] potassium chloride 2014-09-19 14:00:00 No 80 mEq, Route: PO, Daily, Dosing Weight 79.545, kg, Start date: 09/19/14 9:00:00, Duration: 30 day, Stop date: 10/18/14 9:00:00 [facility] metoprolol tartrate 2014-09-19 02:00:00 No 50 mg, Route: PO, Drug form: TAB, Q12H, Dosing Weight 79.545, kg, Start date: 09/18/14 21:00:00, Duration: 30 day, Stop date: 10/18/14 9:00:00 [facility] Lipitor 2014-09-19 02:00:00 No 80 mg, Route: PO, Drug form: TAB, Bedtime, Dosing Weight 79.545, kg, Start date: 09/18/14 21:00:00, Duration: 30 day, Stop date: 10/17/14 21:00:00 [facility] Restoril 2014-09-19 02:00:00 No 30 mg, Route: PO, Drug form: CAP, Bedtime, Dosing Weight 79.545, kg, Start date: 09/18/14 21:00:00, Duration: 30 day, Stop date: 10/17/14 21:00:00 [facility]icia Lisinopril 2014-09-18 22:00:00 No 20 mg, Route: PO, Drug form: TAB, BID, Dosing Weight 79.545, kg, Start date: 09/18/14 17:00:00, Duration: 30 day, Stop date: 10/18/14 9:00:00 [facility] acetaminophen-hydrocodone 325 mg-10 mg oral tablet 2014-09-03 6 17:26:00 No Notes: Do not exceed 4gm/day of acetamino phen. (Same as: Grafton 325/10) [facility] Hydralazine Hydrochloride 10 MG Oral Tablet 2014-09-18 17:19:00 No Notes: (Same as: Apresoline) May interfere w/enteral feedings. Take With Food [facility] Acetaminophen 325 MG / Hydrocodone Bitartrate 10 MG Or al Tablet [Grafton 10/325] 2014-09-18 17:17:00 No Note s: Do not exceed 4gm/day of acetaminophen. (Same as: Grafton 325/10) [facility] metoprolol tartrate 50 mg oral tablet 2014-09-18 16:56:00 Y es 50 mg = 1 tab, PO, Q12H, # 120 tab, 0 Refill(s) [facility] clopidogrel 75 MG Oral Tablet [Plavix] 2014-09-18 16:56:00 Yes 75 mg = 1 tab, PO, Daily, # 30 tab, 0 Refill(s) [facility] atorvastatin 80 MG Oral Tablet [Lipitor] 2014-09-18 16:56:00 Yes 80 mg = 1 tab, PO, Bedtime, # 30 tab, 0 Refill(s) [facility] lisinopril 20 mg oral tablet 2014-09-18 16:56:00 Yes 20 mg = 1 tab, PO, BID, # 60 tab, 0 Refill(s) Fabricio ast Aspirin 325 MG Oral Tablet 2014-09-18 16:56:00 Yes 325 mg, PO, Daily, # 30 tab, 0 [facility] MG Oral Tablet 2014-09-18 16:56:00 Yes 160 mmHg, # 120 tab, 0 Refill(s) Eleni [facility] Saline Flush 0.9% 2014-09-18 14:00:00 No Notes: (Same as: BD Posiflush) [facility] Valium 2014-09-18 12:54:00 No Notes: (Same as: Valium) [facility] metoprolol tartrate 2014-09-18 12:54:00 No Notes: (Same as: Lopressor) [facility] Lisinopril 2014-09-18 12:54:00 No Notes: (Same as: Prinivil, Zestril) [facility] clopidogrel 75 MG Oral Tablet [Plavix] 2014-09-18 12:42:00 No 75 mg = 1 tab, PO, Daily [facility] lisinopril 20 mg oral tablet 2014-09-18 12:42:00 No 20 mg = 1 tab, PO, BID, 0 Refill(s) [facility] Temazepam 30 MG Oral Capsule [Restoril] 2014-09-18 12:42:00 Yes 30 mg = 1 cap, PO, Bedtime [facility] Diazepam 10 MG Oral Tablet [Valium] 2014-09-18 12:42:00 Yes 10 mg = 1 tab, PO, TID, PRN Anxiety [facility] metoprolol tartrate 50 mg oral tablet 2014-09-18 12:42:00 N o 50 mg = 1 tab, PO, Q12H [facility] levothyroxine 200 mcg (0.2 mg) oral tablet 2014-09-18 12:42:00 Yes 200 microgram = 1 tab, PO, Daily, # 30 tab [facility] Aspirin 2014-09-18 12:42:00 No 325 mg, PO, Daily, 0 Refill(s) [facility] Centrum Adults 2014-09-18 12:42:00 Yes 1 tab, PO, Daily, 0 Refill(s) [facility] atorvastatin 80 MG Oral Tablet [Lipitor] 2014-09-18 12:42:00 No 80 mg = 1 tab, PO, Bedtime [facility] Acetaminophen 325 MG / Hydrocodone Bitartrate 10 MG Or al Tablet [Grafton 10/325] 2014-09-18 12:42:00 Yes 1-2 tab, PO, Q4-6H , PRN Pain [facility] potassium chloride 2014-09-18 12:42:00 Yes 8 0 mEq, PO, Daily [facility] Phenergan 2014-09-18 11:35:00 No Notes: Do not give IV push. (Same as: Phenergan) [facility] Metoprolol 2014-09-18 10:09:00 No 5 mg, Route: IV, ONCE, Dosing Weight 79.545, kg, Start date: 09/18/14 5:09:00, Stop date: 09/18/14 5:09:00 [facility] Morphine 2014-09-18 10:08:00 No 4 mg, Route: IVP, ONCE, Dosing Weight 79.545, kg, Start date: 09/18/14 5:08:00, Stop date: 09/18/14 5:08:00 [facility] Saline Flush 0.9% 2014-09-18 08:20:00 No Notes: (Same as: BD Posiflush) [facility] Nitroglycerin 2014-09-18 08:20:00 No Notes: (Same as:Nitroquick, Nitrostat) "Do Not Crush" Sublingual tablet [facility] Aspirin 325 MG Oral Tablet 2014-09-18 08:20:00 No Notes: Take with food. [facility] Ativan 2014-09-18 07:14:00 No 0.5 mg, Route: IVP, Drug form: INJ, ONCE, Dosing Weight 79.545, kg, PRN Anxiety, Start date: 09/18/14 2:14:00 [facility] Nitroglycerin 0.02 MG/MG Topical Ointment 2014-09-18 05:22:00 No 0.5 inch, Route: TOP, Dosing Weight 79.545, kg, ONCE, Start date: 09/18/14 0:22:00, Stop date: 09/18/14 0:22:00 [facility] Aspirin 325 MG Oral Tablet 2014-09-18 05:10:00 No 325 mg, Route: PO, Drug form: TAB, ONCE, Dosing Weight 79.545, kg, Priority: STAT, Start date: 09/18/14 0:10:00, Stop date: 09/18/14 0:10:00 [facility] Vital Signs Vital Name Observation Time Observation Value Comments Source Heart Rate 2016-04-13 20:51:00 [facility] Temperature Oral (F) 2016-04-13 20:51:00 98.7 F [facility] Systolic (mm Hg) 2016-04-13 20:51:00 [facility] Diastolic (mm Hg) 2016-04-13 20:51:00 [facility] Respitory Rate 2016-04-13 20:51:00 [facility] Systolic (mm Hg) 2016-04-13 16:42:00 [facility] Diastolic (mm Hg) 2016-04-13 16:42:00 [facility] Temperature Oral (F) 2016-04-13 16:42:00 98.7 F [facility] Respitory Rate 2016-04-13 16:42:00 [facility] Heart Rate 2016-04-13 16:42:00 [facility] Weight 2016-04-13 14:56:00 [facility] Height 2016-04-13 14:56:00 177.8 cm [facility] BMI Calculated 2016-04-13 14:56:00 [facility] Systolic (mm Hg) 2016-04-13 13:37:00 [facility] Diastolic (mm Hg) 2016-04-13 13:37:00 [facility] Temperature Oral (F) 2016-04-13 13:37:00 98.0 F [facility] Heart Rate 2016-04-13 13:37:00 [facility] Respitory Rate 2016-04-13 13:37:00 [facility] Weight 2016-04-12 09:59:00 [facility] BMI Calculated 2016-04-12 09:59:00 [facility] Height 2016-04-12 09:59:00 177.8 cm [facility] Height 2016-04-12 03:37:00 160.02 cm [facility] BMI Calculated 2016-04-12 03:37:00 [facility] Weight 2016-04-12 03:37:00 [facility] Weight 2016-03-31 16:29:00 [facility] Height 2016-03-31 16:29:00 160.02 cm [facility] Systolic (mm Hg) 2016-03-31 16:29:00 [facility] Diastolic (mm Hg) 2016-03-31 16:29:00 [facility] Temperature Oral (F) 2016-03-31 16:29:00 97.9 F [facility] Respitory Rate 2016-03-31 16:29:00 [facility] Heart Rate 2016-03-31 16:29:00 [facility] BMI Calculated 2016-03-31 16:29:00 [facility] Temperature Oral (F) 2016-03-27 17:24:00 98.2 F [facility] Respitory Rate 2016-03-27 17:24:00 [facility] Heart Rate 2016-03-27 17:24:00 [facility] Systolic (mm Hg) 2016-03-27 17:24:00 [facility] Diastolic (mm Hg) 2016-03-27 17:24:00 [facility] Weight 2016-03-27 16:04:00 [facility] BMI Calculated 2016-03-27 16:04:00 [facility] Height 2016-03-27 16:04:00 160.02 cm [facility] Respitory Rate 2016-03-27 16:04:00 [facility] Heart Rate 2016-03-27 16:04:00 [facility] Systolic (mm Hg) 2016-03-27 16:04:00 [facility] Diastolic (mm Hg) 2016-03-27 16:04:00 [facility] Temperature Oral (F) 2016-03-27 16:04:00 98.3 F [facility] Respitory Rate 2014-12-08 17:05:00 [facility] Systolic (mm Hg) 2014-12-08 17:05:00 [facility] Diastolic (mm Hg) 2014-12-08 17:05:00 [facility] Weight 2014-12-08 15:32:00 [facility] Systolic (mm Hg) 2014-12-08 13:00:00 [facility] Diastolic (mm Hg) 2014-12-08 13:00:00 [facility] Respitory Rate 2014-12-08 13:00:00 [facility] Temperature Oral (F) 2014-12-08 13:00:00 97.4 F [facility] Heart Rate 2014-12-08 13:00:00 [facility] Height 2014-12-08 08:51:00 160.02 cm [facility] Weight 2014-12-08 08:51:00 [facility] BMI Calculated 2014-12-08 08:51:00 [facility] Temperature Oral (F) 2014-12-08 08:10:00 97.5 F [facility] Heart Rate 2014-12-08 08:10:00 [facility] Systolic (mm Hg) 2014-12-08 08:10:00 [facility] Diastolic (mm Hg) 2014-12-08 08:10:00 [facility] Respitory Rate 2014-12-08 08:10:00 [facility] Temperature Oral (F) 2014-12-08 07:24:00 97.7 F [facility] Weight 2014-12-07 22:35:00 [facility] BMI Calculated 2014-12-07 22:35:00 [facility] Height 2014-12-07 22:35:00 160.02 cm [facility] Heart Rate 2014-12-07 22:35:00 [facility] Temperature Oral (F) 2014-12-01 19:57:00 97.9 F [facility] Respitory Rate 2014-12-01 19:57:00 [facility] Systolic (mm Hg) 2014-12-01 19:57:00 [facility] Diastolic (mm Hg) 2014-12-01 19:57:00 [facility] Heart Rate 2014-12-01 19:57:00 [facility] Systolic (mm Hg) 2014-12-01 18:20:00 [facility] Diastolic (mm Hg) 2014-12-01 18:20:00 [facility] Respitory Rate 2014-12-01 16:55:00 [facility] Systolic (mm Hg) 2014-12-01 16:55:00 [facility] Diastolic (mm Hg) 2014-12-01 16:55:00 [facility] Heart Rate 2014-12-01 16:55:00 [facility] Temperature Oral (F) 2014-12-01 16:55:00 98.1 F [facility] Respitory Rate 2014-12-01 12:56:00 [facility] Temperature Oral (F) 2014-12-01 12:56:00 97.5 F [facility] Heart Rate 2014-12-01 12:56:00 [facility] Weight 2014-11-26 21:37:00 [facility] Height 2014-11-23 17:05:00 160.02 cm [facility] Weight 2014-11-23 17:05:00 [facility] BMI Calculated 2014-11-23 17:05:00 [facility] Heart Rate 2014-09-18 17:03:00 [facility] Systolic (mm Hg) 2014-09-18 17:03:00 [facility] Diastolic (mm Hg) 2014-09-18 17:03:00 [facility] Temperature Oral (F) 2014-09-18 17:03:00 97.9 F [facility] Respitory Rate 2014-09-18 17:03:00 [facility] Weight 2014-09-18 13:04:00 [facility] Height 2014-09-18 13:04:00 160.02 cm [facility] BMI Calculated 2014-09-18 13:04:00 [facility] Heart Rate 2014-09-18 12:49:00 [facility] Respitory Rate 2014-09-18 12:49:00 [facility] Systolic (mm Hg) 2014-09-18 12:49:00 [facility] Diastolic (mm Hg) 2014-09-18 12:49:00 [facility] Temperature Oral (F) 2014-09-18 12:49:00 98.3 F [facility] Temperature Oral (F) 2014-09-18 10:00:00 [facility].0 [facility] Systolic (mm Hg) 2014-09-18 10:00:00 [facility] Diastolic (mm Hg) 2014-09-18 10:00:00 [facility] Heart Rate 2014-09-18 10:00:00 [facility] Respitory Rate 2014-09-18 10:00:00 [facility] Height 2014-09-18 00:22:00 160.02 cm [facility] BMI Calculated 2014-09-18 00:22:00 [facility] Weight 2014-09-18 00:22:00 [facility] Procedures Procedure Date / Time Performed Performing Clinician Sourc e Hysterectomy [facility] Procedure on back [facility] Thyroidectomy [facility] CABG x 1 - Coronary artery bypass graft x 1<sup>1</sup> [facility] Stent placement [facility] Cholecystectomy [facility] Encounters Start Date/Time End Date/Time Encounter Type Admission Type Att[facility] Care Department Encounter ID Source 2016-04-12 03:28:00 2016-04-13 21:42:00 Observation [facility] [id number] [facility] 2016-04-11 21:28:00 2016-04-13 15:42:00 [facility] [id number] 2016-03-31 16:12:00 2016-03-31 17:17:00 Emergency [facility] [id number] [facility] 2016-03-31 10:12:00 2016-03-31 11:17:00 Outpatient Rosa Lam [facility] [id number] 2016-03-27 16:03:00 2016-03-27 17:20:00 Emergency [facility] [id number] [facility] 2016-03-27 10:03:00 2016-03-27 11:20:00 Outpatient Lokesh Felix [facility] [id number] 2014-12-07 22:27:00 2014-12-08 18:00:00 OBS Observation Patient [facility] [id number] [facility] 2014-12-07 17:27:00 2014-12-08 13:00:00 Outpatient Rafal Luis kumar Dao [facility] [id number] 2014-11-23 16:54:00 2014-12-01 22:10:00 Inpatient [facility] [id number] [facility] 2014-11-23 11:54:00 2014-12-01 17:10:00 Outpatient Ezekiel Callawayan Blake [facility] [id number] 2014-09-17 23:40:00 2014-09-18 17:15:00 OBS Observation Patient [facility] [id number] [facility] 2014-09-17 18:40:00 2014-09-18 12:15:00 Outpatient Ruddy Guadarrama [facility] [id number] Results Test Description Test Time Test Comments Results Result Comments Source CHEST SINGLE (PORTABLE) 2019-08-31 13:16:00 [place] [address] Patient Name: TRINITY FERNANDEZ Mandi MR #: [id number] : 1960 Age/Sex: 58/F Req #: [id number] Adm Physician: Ordered by: SAM HASTINGS MD Report #: [id number] Location: ER Room/Bed: Procedure: [id number] DX/CHEST SINGLE (PORTABLE) Exam Date: 08/31/19 Exam Time: 1150 REPORT STATUS: Signed EXAMINATION: CHEST SINGLE (PORTABLE) INDICATION: Chest pain COMPARISON: None FINDINGS: LINES/TUBES:EKG leads overlie the chest. LUNGS:The lungs are hyperinflated. No focal consolidation or pulmonary edema. PLEURA:No pleural effusion or pneumothorax. MEDIASTINUM:The cardiomediastinal silhouette appears normal in size and shape. Postoperative findings of prior CABG. Coronary artery stents in place. BONES/SOFT TISSUES:No acute osseous injury. ABDOMEN:No free air under the diaphragm. IMPRESSION: Hyperinflated lungs. No focal pneumonia or pulmonary edema. Signed by: Maria Nicholas MD on 08/31/2019 1:18 PM Dictated By: MARIA NICHOLAS MD [id number] Transcribed By: JOVANY on 08/31/19 1318 COPY TO: SAM HASTINGS MD URINE CULTURE 2016-06-04 14:37:00 Test Item CULTURE (BEAKER) (test code = 1095) <10,000 col/mL skin jack [id number] 09:28:00* Test Item Value Reference Range Interpretation Comments ACTIVATED CLOTTING TIME (BEAKER) (test code = 441) 358 sec TESTED AT [facility] [address] [facility] [address] CBC W/PLT COUNT & AUTO [id number] 04:56:00* Test Item Value Reference Range Interpretation [...] = 417) 0.01 K/ L 0. 00-0.20 0.00BASI METABOLIC [id number] 04:43:00* Test Item Value Reference Range Interpretation [...] IS NOT APPLICABLE FOR DIALYSIS PATIENTS. PROTHROMBIN TIME/[id number] 04:32:00* Test Item Value Reference Range Interpretation Comments PROTIME (BEAKER) (test code = 759) 12.3 seconds 11.7-14.7 INR (BEAKER) (test code = 370) 0.9 <=5.9 RECOMMENDED COUMADIN/WARFARIN INR THERAPY RANGESSTANDARD DOSE: 2.0 - 3.0 Inclu zach: PROPHYLAXIS for venous thrombosis, systemic embolization; TREATMENT for billie ous thrombosis and/or pulmonary embolus.HIGH RISK: Target INR is 2.5-3.5 for pat ients with mechanical heart valves.URINALYSIS W/ [id number] 11:09:00 * Test Item Value Reference Range [...] Clean Catch CBC W/PLT COUNT & AUTO [id number] 09:48:00* Test Item Value Reference Range Interpretation [...] (test code = 1678) Present BASIC METABOLIC [id number] 07:53:00* Test Item Value Reference Range Interpretation [...] DIALYSIS PATIENTS. CBC W/PLT COUNT & AUTO [id number] 10:48:00* Test Item Value Reference Range Interpretation [...] (test code = 762) Normal BASIC METABOLIC [id number] 06:46:00* Test Item Value Reference Range Interpretation [...] DIALYSIS PATIENTS. CBC W/PLT COUNT & AUTO [id number] 09:29:00* Test Item Value Reference Range Interpretation [...] code = 480) 2+ moderate BASIC METABOLIC [id number] 08:39:00* Test Item Value Reference Range Interpretation [...] IS NOT APPLICABLE FOR DIALYSIS PATIENTS. T4, [id number] 15:06:00* Test Item Value Reference Range Interpretation Comments FREE T4 (BEAKER) (test code = 655) 1.26 ng/dL 0.70-1.48 TSH/FREE T4 IF [id number] 14:38:00* Test Item Value Reference Range Interpretation Comments THYROID STIMULATING HORMONE (BEAKER) (test code = 772) 0.22 uIU/mL 0.35-4.94 L [id number] 14:14:00* Test Item Value Reference Range Interpretation Comments LIPASE (BEAKER) (test code = 749) 11 U/L 8-78 [id number] 14:14:00* Test Item Value Reference Range Interpretation Comments AMYLASE (BEAKER) (test code = 349) 43 U/L 25-125 HEPATIC FUNCTION [id number] 14:14:00* Test Item Value Reference Range Interpretation [...] code = 347) 30 U/L 6-55 TROPONIN [id number] 07:12:00* Test Item Value Reference Range Interpretation [...] acute neurological disease, and pers istent tachyarrhythmia.TROPONIN [id number] 01:13:00* Test Item Value Reference Range Interpretation [...] neurological disease, and pers istent tachyarrhythmia.BASIC METABOLIC [id number] 18:25:00* Test Item Value Reference Range Interpretation [...] ESTIMATED GFR. CREATINE KINASE (CK), TOTAL AND [id number] 18:22:00* Test Item Value Reference Range Interpretation Comments CREATINE KINASE TOTAL (TYLERAKER) (test code = 380) 95 U/L 29-20 0 CREATINE KINASE-MB (BEAKER) (test code = 750) 1.7 ng/mL 0.0-6.6 CREATINE KINASE-MB INDEX (TYLERAKER) (test code = 395) 1.8 % Effective 02/20/2014: CK-MB Reference Range ChangeNew: 0.0-6.6 Previous: 0.0- 4.9CK-MB Reference Range:<6.7 Normal6.7-10.0 Borderline>10.0 Abnormal TROPONIN [id number] 18:22:00* Test Item Value Reference Range Interpretation Comments TROPONIN I (VANESA) (test code = 397) < ng/mL 0.00-0.03 [...] Reference Range Interpretation Comments B-TYPE NATRIURETIC PEPTIDE (VANESA) (test code = 700) 27 pg/mL 0-100 PT/[id number] 18:05:00* Test Item Value Reference Range Interpretation [...] mechanical heart valves.CBC W/PLT COUNT & AUTO [id number] 18:00:00* Test Item Value Reference Range Interpretation [...] 417) 0.13 K/ L 0. 00-0.20 0.00CARDIAC [id number] 17:27:0063[facility] [id number] 17:27:00<0.02[facility] [id number] 06:58:0027[facility] [id number] 06:58:00<0.02[facility] [id number] 06:58:000.7 [facility] [id number] 06:58:0087[facility] ENZYMES 2016-04-12 06:58:000.8[facility] [id number] 06:58:86762TG [facility] [id number] 06:58:0099[facility] [id number] 06:58:000.69[facility] [id number] 06:58:03840NW [facility] [id number] 06:58:0096MH [facility] [id number] 06:58:0022[facility] PANEL 2016-04-12 06:58:79303AI [facility] [id number] 06:58:0087MH [facility] [id number] 06:58:004.3[facility] [id number] 06:58:0021[facility] [id number] 06:58:000.4MH [facility] [id number] 06:58:0022MH [facility] [id number] 06:58:008.8 [facility] 2016-04-12 06:58:006.6[facility] [id number] 06:58:0032 [facility] [id number] 06:58:0012.3[facility] [id number] 06:58:003.4 [facility] [id number] 06:58:000.9 [facility] [id number] 06:58:003.2[facility] [id number] 06:58:0024 [facility] 2016-04-12 06:58:00* Test Item Value Reference Range Interpretation Comments PT (test code = PT) 12.1 s 12.0-14.7 KxdqudyxbCDBVMSDCYF2053-65-92 06:58:000.88 DwtauwhmqUCFCBBVADQ8537-25-89 06:58:00* Test Item Value Reference Range Interpretation Comments PTT (test code = PTT) 25.1 s 22.9-35.8 [id number] 06:35:29359HR RlnuupctoPDKLOUTNBC8690-92-54 06:35:008.0 GrmquljmjZUOEJKQTDV4217-86-76 06:35:0034.0 [facility] 2016-04-12 06:35:0014.9 LsogbnwguQYUFSETZCJ9589-68-29 06:35:00* Test Item Value Reference Range Interpretation Comments MCH (test code = MCH) 31.9 pg 27.0-31.0 [id number] 06:35:0036.7 TznevbaioAFBMMSGGYB9480-52-27 06:35:0093.8 DksychsrwJTGBVFXLMI2499-54-83 06:35:008.8 [facility] 2016-04-12 06:35:0012.5 PytcmmetzLZCUINGCLT2081-22-51 06:35:003.92 [facility] RZCYJVYHQQ8858-81-27 06:35:004.7 WurzcdjmxAPEKVMHNAD5767-47-41 06:35:000.6M BxydbshiuNNOREWJEHA9321-60-06 06:35:000.3M TynvqiufzPAKCMSIJWO6072-12-97 06:35:000.2MH AkqhossukQIEWFOVFMJ8270-22-99 06:35:0034.8[facility] 06:35:003.1[facility]XujshrypiHHMWQROUJN4315-35-31 06:35:006.9[facility] DAFGCZLTFJ8127-05-11 06:35:001.7[facility] CenterUyraygdegDPBNIQAZJP0081-25-58 06:35:0053.2M[facility] HospitalGjmeztkrfNNUCWFUOQX4098-58-42 06:35:003.4[facility] ULCOFP8639-25-47 06:13:00See Note (04/12/16 12:13 AM)[facility] CUQABN7748-38-20 06:13:00 Negative *NA*(04/12/16 12:13 AM)[facility] MXOVQV9337-53-40 06:13:00Negative *NA*(04/12/16 12:13 AM)[facility] YAKOVO8303-18-99 06:13:00Negative *NA*(04/12/16 12:13 AM)[facility] KHRNBL8830-43-18 06:13:00Positive *ABN*(04/12/16 12:13 AM)[facility] NOTWYU4531-28-15 06:13:00Positive *ABN*(04/12/16 12:13 AM)[facility] HGZFSL2383-21-62 06:13:00Negative *NA*(04/12/16 12:13 AM)[facility] BPRFYK9135-50-93 06:13:00Negative *NA*(04/12/16 12:13 AM) [facility] NQJVI2916-14-88 06:13:00Negative *NA*(04/12/16 12:13 AM) [facility] YHABE5690-34-09 06:13:00Negative (04/12/16 12:13 AM) [facility] GXVBN5319-90-70 06:13:00Negative (04/12/16 12:13 AM) [facility] NQLMS9720-13-07 06:13:004 [facility] RXRBW8175-48-20 06:13:00Trace *ABN*(04/12/16 12:13 AM) [facility] STOOL 2016-04-12 06:13:002MH [facility] WTYMC5096-44-65 06:13:006.0MH [facility] MYNFG8687-14-43 06:13:001.020MH [facility] STOOL 2016-04-12 06:13:00Clear (04/12/16 12:13 AM) [facility] QIUREHZ0868-35-25 10:52:0089MH [facility] AXXMJGR1351-85-02 10:52:00<0.02MH [facility] UOCIOJY0810-99-83 10:52:001.5MH [facility] WDDXBEZ9814-89-59 10:52:001.3MH [facility] JSDZB6135-17-52 10:52:0099MH [facility] SHZQY9114-11-43 10:52:0012MH [facility] OMELG7420-60-01 10:52:000.7 [facility] PANEL 2014-12-08 10:52:66161MH [facility] OOLKF1896-24-83 10:52:85194WO [facility] DWGBQ9743-98-23 10:52:004.0 [facility] LDUSB9748-97-92 10:52:0021 [facility] JHMTE8534-40-48 10:52:71933IS [facility] HQDIA9375-77-57 10:52:008.7 [facility] PMUPT3854-68-95 10:52:0013.0 [facility] 2014-12-08 10:52:41611JN OcmijkmrsVYKALSNXHN5539-59-28 10:52:0016.5 [facility] QUGDJYGKYH4469-99-65 10:52:007.9 NwcjmqbhmWMBIIMHAVD8278-21-71 10:52:0038.0 VugfwavzuLXUCSCIWMY8051-37-41 10:52:0082.9 AdszrmtfqPOQPBSWENF1007-95-28 10:52:00* Test Item Value Reference Range Interpretation Comments MCH (test code = MCH) 27.0 pg 27.0-31.0 WgadiopnwLPVDPRKMKH7943-95-50 10:52:0032.6MH RvioirzjzPLTLYIVNZE1443-43-14 10:52:006.0 QjevllwfcEHNDFQCOCF8023-06-73 10:52:004.59 [facility] 2014-12-08 10:52:0012.4MH LgwbblgfvZZFPZMLAZK8620-22-24 10:52:002.5MH [facility] APMLSCCWRP7270-03-64 10:52:002.5MH PwhqhoinmGZMDWMTVAQ6660-47-60 10:52:000.3MH RtfrbjftxQYUTBINBBM7601-73-99 10:52:000.6MH UhxphsomuJPRYMVQZMC2004-01-79 10:52:000.1MH OhyewmkmgHATISRUOTE6887-98-47 10:52:0042.1MH [facility] 2014-12-08 10:52:0010.5 HuoudlwynETPKJXYMWN1320-45-36 10:52:001.1MH [facility] DGCXLWINVA7290-34-27 10:52:004.2MH NqijnqrqlLHLOEDZRGN3211-16-24 10:52:0042.1MH BkudlhmivWZACEU4321-20-06 10:52:0031 UqvguaruzAKCDJS0458-76-51 10:52:03989QM HqruvychoDTHQOR9206-38-34 10:52:0043 DeasdttafPEDRUV5457-87-05 10:52:67589IX NceopcwenAUZDAH5899-35-55 10:52:89097NJ XlysmtdweKEHLPM8783-62-73 10:52:006.70MH [facility] FJOUKQP5234-37-83 02:43:00<0.02MH [facility] BJTFQ5643-70-58 02:43:0064MH [facility] RWZYKXA5696-57-46 01:57:258MH [facility] LUWDJHI9220-63-87 22:48:00<0.02MH [facility] NAMRUJE0673-61-46 22:48:000.9 [facility] HCVJSJN3127-71-29 22:48:001.1MH [facility] ENZYMES 2014-12-07 22:48:01514KX [facility] CZUXL5414-53-52 22:48:003.6MH [facility] YBNQI1113-43-51 22:48:0064MH [facility] PFAEU3585-43-24 22:48:001.0MH [facility] LKHEX1291-48-63 22:48:009.4MH [facility] NKAJW3128-32-09 22:48:000.9MH [facility] YRDLJ7726-11-62 22:48:004.1MH [facility] PANEL 2014-12-07 22:48:007.7 [facility] NHWXK5979-51-00 22:48:000.5 [facility] SSRUS4040-84-04 22:48:94966HX [facility] VSMKV3525-39-19 22:48:004.1MH [facility] RKPSZ0522-41-58 22:48:15304QN [facility] VZHPI2236-44-73 22:48:0031 [facility] VSDCH9264-92-99 22:48:0055 [facility] PANEL 2014-12-07 22:48:0014 [facility] TVGFI3816-49-41 22:48:0014 [facility] ZVOZD7001-67-13 22:48:0097 [facility] ZKJXI1871-43-55 22:48:0012.1M [facility] BRHQQ6325-48-87 22:48:0025 [facility] ECBKG3389-89-69 22:48:09182OL OluhtiznzTQBABUHVKJ4879-87-78 22:48:00* Test Item Value Reference Range Interpretation Comments PTT (test code = PTT) 29.0 s 22.9-35.8 BxrhhxqwlSVOCRJZWUS0434-70-64 22:48:00* Test Item Value Reference Range Interpretation Comments PT (test code = PT) 13.5 s 12.0-14.7 LliigqekpPDQCDDBJQB9597-43-33 22:48:001.00 BgqaahwcuDLHTZCJNVH6775-19-17 22:48:003.1M UrweuqcpwOCBCVAFGFP8718-33-39 22:48:000.1M [facility] 2014-12-07 22:48:000.6M DkzeauilzWDNQLFPVHP4989-53-69 22:48:002.7[facility] WFBMLBGPRG9590-03-66 22:48:000.6M MuagpmqkzKXGNBXFTGC5292-44-43 22:48:009.1M GcsambgwhRAIQRAHBBC7132-89-23 22:48:002.2M UjsmbbrmcYXEQEVZLQR8431-29-87 22:48:0041.1M GvspgdervOBWFGCDFWN7240-01-64 22:48:0047.0 [facility] 2014-12-07 22:48:008.0 VsicxapevPLWIKWKNJS5269-97-48 22:48:0032.5[facility] QKFMSUZMQW8899-59-61 22:48:0016.5 MrkvdcmhiJNGBBBICZA2800-28-21 22:48:28362HR VhqyiwfnxWLEOCAEGDB5341-48-83 22:48:0038.9 ThxhokulvDEAAWXPQMK3471-07-25 22:48:0082.8 VcwwznkavDXMQXAACKV7077-81-24 22:48:00* Test Item Value Reference Range Interpretation Comments MCH (test code = MCH) 26.9 pg 27.0-31.0 SfjldtcazGRNFKQVUIK3617-84-94 22:48:006.6MH CtbpywiipVINBYQKLHP4062-69-13 22:48:004.70 TzqvrnormDNNJAZDHVR6216-09-43 22:48:0012.6M [facility] IEVHVLUNZNPH0543-68-96 10:15:0013.1MH MepblijjhLXOXHGITKYAT9077-87-04 10:15:00 106 LahvkjjurKQFGHWGCXKLR4606-37-66 10:15:0018 [facility]ELECTROLYTES 2014-11-30 10:15:0024 LulrzsulmWNSBHRIPZTLX5826-97-54 10:15:47144SH [facility] UJJHAOIANIZA3691-79-59 10:15:15329ME OxktsdukjSMMJXLUISVFY8256-35-20 10:15:004.1 CqnbvdbcrWNGAGYHWMHBJ4796-96-58 10:15:0073 RejmxcaplERIRSDTPGVIV0471-32-21 10:15:000.9 NpusafgfnPTVPLJLTMSCX9135-23-14 10:15:008.6MH [facility] 2014-11-30 10:15:000.3MH QgnxpwfxgJQYGYSQEHN8873-07-37 10:15:000.4MH [facility] RVSMPYVEQJ9904-54-55 10:15:002.9 YriqewptaYINVBZJVBL5406-98-26 10:15:000.6MH LnhozkxpxWUNYTMTCTO7013-70-04 10:15:005.0 WskqmeayiNWQCLFEBSZ7666-63-10 10:15:002.0 NnymljhrkEMWRUSZIVB8586-92-04 10:15:0032.0 [facility] 2014-11-30 10:15:0046.7 ZqpjqcyzmGORXNOKSZS0391-71-98 10:15:0010.2MH [facility] XTEXBQFEHH8481-00-95 10:15:006.1M DjbwqybbyABWTJDAGDT0107-93-35 10:15:008.0 NisuvwebaSRHDJJIIFF8779-28-35 10:15:0016.1M FpciugapvZZVGNBXXCV2938-30-87 10:15:67873WR DhxgtpaqvAHDISDSFBS8691-15-67 10:15:00* Test Item Value Reference Range Interpretation Comments MCH (test code = MCH) 28.3 pg 27.0-31.0 BmlrmhkhwPXZRMHDUEC2752-42-79 10:15:0033.8 YtutniyhcZJGTNGYOEP8613-31-92 10:15:0083.7 LbhsxkmrwSODWJVZTHZ8729-90-66 10:15:0033.9 [facility] 2014-11-30 10:15:004.05 DavylxqyiMWUKAVKRAU8459-67-07 10:15:0011.5 [facility] SOOTSBKKUX0891-73-78 10:15:006.1M [facility] JJKQF8869-01-04 09:33:0073MH [facility] DXXBW3527-02-98 09:33:0013MH [facility] VODLM4271-21-36 09:33:0026MH [facility] KUXGE0927-34-34 09:33:000.9MH [facility] PANEL 2014-11-28 09:33:87862ZO [facility] LDVLP3122-90-43 09:33:008.8MH [facility] PMAIB8010-08-43 09:33:69099LV [facility] ZICUO7004-71-38 09:33:003.7 [facility] SNNRJ5119-99-45 09:33:69827JN [facility] ZVPIZ0138-86-46 09:33:0014.7 [facility] OPLOQ4509-98-58 09:33:000.3MH [facility] PANEL 2014-11-28 09:33:000.4MH [facility] IAOTJ4280-31-85 09:33:000.1MH [facility] RSYNJ4696-38-41 09:33:0026MH [facility] VHFDA6388-64-55 09:33:49746PO [facility] PQEYE4251-52-99 09:33:003.0MH [facility] BKUTV9604-79-64 09:33:001.0 [facility] XQVRA6415-19-69 09:33:005.9MH [facility] PANEL 2014-11-28 09:33:002.9MH [facility] KORZS0248-63-24 09:33:0049 [facility] HPZHWCOCKO4100-95-99 09:33:007.7 GcquajabqSWROJEEVWU9479-78-53 09:33:0036.5 KphpwymlkDBLHOAKZGE8599-05-31 09:33:0012.5 GpohmikryZELEGGWHSZ6439-35-65 09:33:004.47 VnxcmjvylODOIIQNREP9694-79-41 09:33:56248FO [facility] 2014-11-28 09:33:0016.0 QnlvyzwbhMQJTJINDLK7944-33-18 09:33:0034.3MH [facility] JYEODVBDCE9291-79-70 09:33:00* Test Item Value Reference Range Interpretation Comments MCH (test code = MCH) 28.0 pg 27.0-31.0 MemaztgmiMPHKTHCZNR6447-56-73 09:33:0081.7 UxfsxzrbwKTRPZRFIEL9895-90-51 09:33:005.9 XsyfltlpoKBBLOFROQP1165-99-18 09:33:0010.2M [facility] 2014-11-28 09:33:0036.4 WlwbwxwgcSUUQBFQSCM6430-67-89 09:33:0045.5 [facility] SGQLPKOERA4464-73-17 09:33:000.1MH LwzcweqhmOSEIYNFQDY5016-52-18 09:33:000.3M EjloeceszYMYDFZGWWM5818-10-95 09:33:000.6MH MmkfxsbpaLDJHVLTERV2504-62-05 09:33:002.2M ToeayncwwJAXUIERVMK0143-95-96 09:33:002.7 [facility] 2014-11-28 09:33:002.5 YxhswebpuKQRZJRQRXA7310-64-08 09:33:005.4 [facility] BQPCC6144-91-25 08:31:62527OT HxijaduduQJMXGQRGOGOW0642-29-77 08:31:08776LH BoloktpnjFFZKGDEYCRGG4886-44-85 08:31:003.5 ZqagpfbnjFNUIYSHZEMWB6031-35-45 08:31:17213BU XhfjukwqhEVAONPQWWCXR6126-64-64 08:31:0084 [facility]ELECTROLYTES 2014-11-25 08:31:003.1M HrhukusmmGNCKUDAYGVJA8495-96-11 08:31:91081UY [facility] OEQTZEVEENJW5991-84-91 08:31:000.5 AqiwztettWMIWJPUACKSF1460-48-97 08:31:0095 ArgodplwxIPLBHQXFZFBP4195-20-81 08:31:0063 NmtouayipDHKIFGLQWENL4611-51-62 08:31:0089 RgcnfombfKNQMZYSKWOZX8768-00-74 08:31:009 [facility]OLY[facility] 2014-11-25 08:31:000.8 TxpkjiysiNTVSKQWPNLZU6117-40-52 08:31:006.6MH [facility] EUWIHSPNSAVN8685-77-45 08:31:0021 XwtvurafwMTAAWCZPISSB5353-62-02 08:31:008.4 RhqxigvycWLSNQTFRKCEE4481-80-00 08:31:000.9 VtrysafztOPFUJDDZXKOU0973-31-80 08:31:0013.5 MnddibpcvQUIJHHELOIYY9001-72-24 08:31:0011 [facility] TWYYHSIMMNXW0934-44-51 08:31:003.5 SlpizglhbEVWCCWATCX7319-40-15 08:31:005.9 QydldgognCXIQKAHNDU4038-09-28 08:31:0082.2MH KvvurnozlGKFSKLZSGB4887-19-64 08:31:004.42 TdrhgqiwkXGEZZZEWNR8625-29-22 08:31:0036.3M [facility] 2014-11-25 08:31:0012.3M WqpsklydnSUJOQGTDSE1163-66-91 08:31:007.9[facility] FTHLCOBLXY1939-46-37 08:31:0033.8 JbcbtqcpsENFAWCFYAY3147-72-84 08:31:00* Test Item Value Reference Range Interpretation Comments MCH (test code = MCH) 27.8 pg 27.0-31.0 ZuszsjmpaPGOUSGHMLQ2977-34-64 08:31:81636SP TgmqorxmeHRUOJSHWYJ3395-02-95 08:31:0016.0 LmqdxgclnYFBKLLKENN0086-83-55 08:31:003.1M [facility] 2014-11-25 08:31:001.9 HdlaotwvkDTPPOJYHYC6684-41-20 08:31:000.3M [facility] KJFGXGAXLA3585-10-17 08:31:000.1MH KccvrdkobDTYOTPIRFB5018-07-44 08:31:000.4 BwjgxsuldOUHWHIRDHH1040-94-16 08:31:007.1MH KbbhhwcibBRNOFAWJQQ5957-53-38 08:31:0053.4 IbrdoxetuFFZVVDNLON7276-96-31 08:31:002.1M [facility] 2014-11-25 08:31:004.6M OuvmqenduNKQVORZEPQ2983-15-73 08:31:0032.8 [facility] PQYFC8413-53-38 00:47:001.9 [facility] TFMOF3776-97-94 00:47:0050 [facility] PWRDX7466-57-25 00:47:09305OX [facility] CPEEZ6600-32-07 00:47:003.4 [facility] OXTUE2107-34-10 00:47:0012 [facility] PANEL 2014-11-25 00:47:000.9 [facility] DQVTB7479-67-70 00:47:000.6M [facility] JALRA7458-68-12 00:47:91147FE [facility] QNNXV4453-33-77 00:47:0083 [facility] HTAMO9784-53-63 00:47:003.2MH [facility] JBPSN2258-26-03 00:47:38523DT [facility] SBJNQ7069-32-83 00:47:006.6MH [facility] RSMPF3946-56-93 04:47:001MH [facility] HPRJT5907-92-90 04:47:00Clear (11/23/14 11:47 PM) [facility] PXRZQ8512-46-31 04:47:001.023MH [facility] TDFPT3134-28-52 04:47:00Yellow *NA*(11/23/14 11:47 PM)MH [facility] EZZKU1800-53-44 04:47:00Negative *NA*(11/23/14 11:47 PM)MH [facility] ZMAIQ1962-76-09 04:47:005.0 [facility] STOOL 2014 04:47:0012 [facility] ECRWS2587-13-73 04:47:00Trace *ABN*(11/23/14 11:47 PM)MH [facility] PQHLA7615-49-23 04:47:00Negative (11/23/14 11:47 PM)MH [facility] CQBIQ2586-35-45 04:47:00Negative (11/23/14 11:47 PM) [facility] OFAIVUU9450-78-45 01:15:001.0 [facility] C[facility] COFVUZQ6922-23-33 01:15:000.8 [facility] NCHFSBB2957-66-94 01:15:0081 [facility] DXAMHOA2716-45-04 01:15:00<0.02 [facility] QUVIG4920-92-62 01:15:001.0 [facility] XBXFD3267-23-31 01:15:48096TJ [facility] IPNZU8797-69-95 01:15:0086 OhtiinbhjEITKFLKQKI6414-50-40 20:06:000.91 VmmzvtfmsDKLTYFQWZY5321-32-71 20:06:00* Test Item Value Reference Range Interpretation Comments PT (test code = PT) 12.2 s 12.0-14.7 FatwnmddlOARZBNRDRU7088-43-28 20:06:00* Test Item Value Reference Range Interpretation Comments PTT (test code = PTT) 29.7 s 22.9-35.8 [facility] PFOQZZW4252-36-33 19:19:009MH [facility] ENZYMES 2014-11-23 19:19:00<0.02 [facility] QUHVENV0888-24-66 19:19:0077 [facility] PGXVICW8395-46-99 19:19:000.9 [facility] ENZYMES 2014-11-23 19:19:001.2MH [facility] XDQKH4550-30-29 19:19:001.7 [facility] VHEJP7870-19-23 19:19:0019 [facility] GUDTJVH7292-82-36 15:02:0067 [facility] EWINQFS9556-36-04 15:02:00<0.02 [facility] ENZYMES 2014-09-18 10:33:0062 [facility] REUGRKN9155-53-30 10:33:00<0.02 MkrvpemygBAYUEJ2502-02-85 10:33:0029 PizsxbsvzWCJYYD5885-31-29 10:33:11772SL ZpuhqqnglBMMBCP4598-44-07 10:33:82305SP LqpwkpuhqJGWAJQ0938-96-53 10:33:003.86MH YvmxxumjfGBDZZP7704-81-03 10:33:39698JR PehlseqhxHWIFMP6354-65-38 10:33:0059MH [facility] GXUCROP2918-24-02 04:21:00<0.02MH [facility] ENZYMES 2014-09-18 04:21:0059MH [facility] JTEQY3548-41-62 04:21:0085MH [facility] NPPCG0911-60-77 04:21:000.8MH [facility] TABYO2593-89-98 04:21:003.6MH [facility] LFXKX8117-06-75 04:21:72264ZI [facility] DCAIP2351-03-95 04:21:46233OM [facility] MLAIT4697-68-42 04:21:008.6MH [facility] PANEL 2014-09-18 04:21:0019MH [facility] NSALU9332-50-84 04:21:0027MH [facility] KIYFL2626-72-68 04:21:0025MH [facility] YJSQM2742-44-72 04:21:003.6MH [facility] BHIAO1013-10-40 04:21:006.8MH [facility] KPPKN8501-85-50 04:21:000.3MH [facility] IVYZG6914-03-94 04:21:0092MH [facility] PANEL 2014-09-18 04:21:0018MH [facility] TPTEL3805-19-16 04:21:80605LJ [facility] FTJIG0217-59-59 04:21:003.2MH [facility] HGBHM2663-84-02 04:21:0022MH [facility] XTOIF7602-79-83 04:21:0010.6MH [facility] OALTG9991-89-27 04:21:001.1MH LnrygolhpNQBJPUGBFU7546-65-62 04:21:00* Test Item Value Reference Range Interpretation Comments PTT (test code = PTT) 28.8 s 22.9-35.8 ZyopgyezlGFGTURERMT0020-58-08 04:21:00* Test Item Value Reference Range Interpretation Comments PT (test code = PT) 12.5 s 12.0-14.7 VdbnxghlkGSWMDXHZFJ1425-56-21 04:21:000.94 PzcfzbzqsLHDSWLYPHH6758-78-79 04:21:007.4 EderhbnyjXXAKGWNMNI1181-21-30 04:21:0034.1MH [facility] 2014-09-18 04:21:0016.8 EtfpagsmmRHLGJXGQYE7954-93-24 04:21:[facility]249[facility] DSLIUFSMCZ3265-04-41 04:21:0011.4 BrajwdxvuFAMXREOZRK8507-78-36 04:21:0083.0 OyvuxmzjgXROBPNESMM8255-99-00 04:21:00* Test Item Value Reference Range Interpretation Comments MCH (test code = MCH) 28.3 pg 27.0-31.0 EdfuldyemJSUXLDZMEL2115-54-80 04:21:0033.4 JylsisfeiWZKXWORJNR1762-25-99 04:21:004.03 ZnfendrtyAXSUHYBLNJ1408-16-26 04:21:007.0 [facility] 2014-09-18 04:21:003.7 OjktcacubEHCAJDAGSU8178-77-38 04:21:000.6MH [facility] UEWXELDVWG8047-70-07 04:21:000.1MH LakadfmpnERYAOBDNZK8237-27-96 04:21:0052.2MH YoxsifwvrQJNANTKCZN3763-34-31 04:21:000.2M IsbguqwspARINGTGYTB1799-68-98 04:21:001.8 BthebsvplVISEEJFGAY4298-37-56 04:21:002.6M [facility] 2014-09-18 04:21:008.1M HbciqkkbjDYOVRHEVBI6349-61-33 04:21:0037.7 [facility]
[2019-08-31] MEDS ORDERED: ENOXAPARIN SOD INJ 60 MG/0.6 ML SYR SC ONE (14:00)
[2019-08-31] MEDS ORDERED: LORAZEPAM INJ 2 MG/ML VIAL IV ONE (14:00)
[2019-08-31] MEDS ORDERED: METOPROLOL TARTRATE 25 MG TAB PO SCH (14:30)
[2019-08-31 16:02] VITALS: BP 176/116
[2019-08-31] MEDS ORDERED: CLOPIDOGREL BISULFATE 75 MG TAB PO ONE (16:15)
[2019-08-31] MEDS: MORPHINE SULFATE 2 MG/ML SYR 1ML IV PRN ×2 (17:37→21:40)
[2019-08-31] MEDS: ONDANSETRON HCL INJ 2MG/ML 2ML 2 MG/ML VIAL IV PRN (17:37)
[2019-08-31] MEDS: PREDNISONE 20 MG TAB PO SCH (17:37)
[2019-08-31] MEDS: METOPROLOL TARTRATE 50 MG TAB PO SCH (17:37)
[2019-08-31] MEDS: AMLODIPINE BESYLATE 10 MG TAB PO SCH (17:38)
[2019-08-31 18:10] VITALS: BP 176/116
--- NOTE | 2019-08-31 18:20 | NUR ---
Received patient from ER at 1630, patient came via wheelchair with . Patient assessment was completed, patient had no skin issues, AOx3. Patient medications reconciled. This play writer was present when Dr. Sullivan and [employer] CO[employer] SANDER, Ketan did assessment and set out plan for tonight and tomorrow. Patient will have a heart cath tomorrow. Patient will have clear liquids tomorrow for breakfast and then be NPO after. Patient had one dose of prednisone now and one tomorrow for allergic reaction to dye. Patient oriented to room and procedures. Patient had no other questions or complaints.
--- NOTE | 2019-08-31 18:55 | NUR ---
Bedside nursing shift report completed with morning nurse. Pt alert and oriented to name, right side lying in bed. Pt denies pain at this time. Call light within reach. Call light within reach. Bed low and locked.
[2019-08-31 19:06] LABS: CREATINE KINASE 78 IU/L (29-168)
--- NOTE | 2019-08-31 19:42 | Consultation ---
DATE OF CONSULTATION: 08/31/2019 CHIEF COMPLAINT: Chest pain. HISTORY OF PRESENT ILLNESS: This is a 58-year-old female with history of CAD, status post CABG May 2015, status post PCI in 2018, hypertension, hyperlipidemia, repeated pancreatitis, chronic back pain, and anxiety. The patient presents to [facility] ER with complaints of chest pain. Cardiology was consulted to evaluate the patient. The patient is seen in room, reports started having chest pain yesterday afternoon, heaviness, radiating to her left neck and shoulder, was accompanied by with shortness of breath and nausea. Symptoms persisted, therefore came to the ER for further evaluation. The patient reports chest pain has subsided somewhat after receiving morphine. Discussed at length with the patient regarding ischemic evaluation given the patient's known CAD and repeated chest pain. We will proceed with left heart catheterization in a.m. PAST MEDICAL HISTORY: CAD, status post CABG two-vessel May 2015 [place], hypertension, hyperlipidemia, repeated pancreatitis, chronic back pain and anxiety, also status post PCI in 2018 by another cardiology team. PAST SURGICAL HISTORY: Bypass two-vessel [address] Lokesh [place], [place], right common femoral artery repair in 2018, back surgery 2015, thyroidectomy, hysterectomy, and tonsillectomy. FAMILY HISTORY: Mother , age 64 from complications from CABG; father alive in his 90s, history of CABG. SOCIAL HISTORY: She is . She is [employer]. She is a former smoker. She occasionally drinks alcohol. Occasional marijuana use. ALLERGIES: TO PENICILLIN, REGLAN, TRAMADOL, AND COMPAZINE. HOME MEDICATIONS: Include lisinopril 10 mg once a day, Norvasc 5 mg twice a day, metoprolol 50 mg b.i.d., Lipitor 80 mg daily, and aspirin 81 mg daily. REVIEW OF SYSTEMS: CONSTITUTIONAL: Denies any weight changes, fatigue, weakness, fevers, chills, or night sweats. SKIN: No rash or sores. HEENT: Positive for nausea. Denies any vomiting. Denies any vision change, blurred vision, double vision, epistaxis, sore throat, swollen neck, or stiff neck. CARDIAC: Positive for chest pain as above. Positive dyspnea on exertion. No orthopnea, PND, or lower extremity edema. RESPIRATORY: Positive for shortness of breath. No wheezing, coughing, or hemoptysis. GI: Positive for nausea. No vomiting. Does report intermittent abdominal discomfort. Does report a hiatal hernia. Denies any tarry or bloody stools. Denies any diarrhea or constipation. URINARY: Denies any frequency, urgency, dysuria, or hematuria. VASCULAR: Denies any claudication or lower extremity edema. MUSCULOSKELETAL: Positive for generalized joint pains or back pain. NEUROLOGIC: Denies any numbness, tingling, paralysis, fainting, or seizures. HEMATOLOGY: Denies any bruising or bleeding. ENDOCRINE: Denies any heat or cold intolerance, polyuria, polydipsia, or polyphagia. PHYSICAL EXAMINATION: VITAL SIGNS: Height 63 inches, weight 125 pounds, BMI 22. Temperature 98.2, pulse 72, respiratory rate 18, blood pressure 167/104, and 100% on room air. GENERAL: Appears stated age, reliable informant. No acute distress. SKIN: No rashes or bruises noted. HEENT: Normocephalic. Pupils are equal and reactive. Extraocular movements intact. Trachea midline. No JVD. No carotid bruit noted. HEART: Regular rate and rhythm. No murmurs or clicks noted. Positive sternotomy scar. LUNGS: Decrease air entry. Clear to auscultation. ABDOMEN: Soft, nontender, and nondistended. No organomegaly noted. MUSCULOSKELETAL: Good muscle strength throughout. No lower extremity edema noted. VASCULAR: Right groin scar, +2 radial pulses bilaterally, +1 DP/PT pulses bilaterally. NEUROLOGIC: Cranial nerves 2 through 12 seem intact. LABORATORY DATA: Sodium 140, potassium 3.7, chloride 107, BUN 13, creatinine 0.9, and glucose 98. Troponin less than 0.001. BNP 35. Lipase 18, LDL 160, and HDL 64. White count 5, hemoglobin 14, hematocrit 41, and platelets 287. PT 12 and PTT 28. Chest x-ray showing no acute abnormalities. Does show hyperinflated lungs. EKG, sinus rhythm with LVH. ASSESSMENT: 1. Acute coronary syndrome in a patient with CAB, PCI etc... 2. COPD. 3. Hypertension. 4. Hyperlipidemia. 5. PVD PLAN: The patient presents to [facility] ER with complaints of chest pain with typical symptoms and continue to have chest pain after admission on appropriate RX including Statin, BB, CCB and Lovenox. Patient loaded with Plavix. Discussed management and workup, patient will be scheduled for Left heart catheterization with possible intervention, procedure discussed with the patient including risks and benefits. Questions answered. The patient wishes to proceed with definitive evaluation in a.m. We will get echo to evaluate heart structurally. We will load the patient with Plavix. Restart statin, beta-emily therapy. Continue telemonitor. Further recommendations as clinical course dictates. Thank you very much for this consult. Seen and evaluated, agree with note Dictated by Ketan Jackson NP Christiano Sullivan MD DC/ABE /[id number] MTDMelchor
[2019-08-31 20:00] VITALS: BP 152/87
[2019-08-31] MEDS ORDERED: ATORVASTATIN 20 MG TAB PO SCH (21:00)
[2019-08-31] MEDS: PROMETHAZINE 12.5MG/ NACL 0.9% 12.5 MG/50 ML BAG IV PRN (21:15)
[2019-08-31] MEDS: SODIUM CHLORIDE 0.9% 1000ML 1,000 ML IV SCH (21:15)
[2019-08-31] MEDS: FAMOTIDINE 20 MG/2 ML VIAL IV SCH (21:15)
[2019-08-31] MEDS: ATORVASTATIN 40 MG TAB PO SCH (21:15)
[2019-08-31] MEDS ORDERED: ACETAMINOPHEN 325 MG TAB PO PRN (21:45)
[2019-08-31 22:20] LABS: BILIRUBIN,URINE NEGATIVE (NEGATIVE); CLARITY,URINE SL CLOUDY (CLEAR); COLOR,URINE YELLOW (YELLOW); KETONES,URINE NEGATIVE (NEGATIVE); LEUKOCYTE ESTERASE ,URINE TRACE (NEGATIVE); NITRITE,URINE NEGATIVE (NEGATIVE); PROTEIN,URINE DIPSTICK NEGATIVE (NEGATIVE); URINE UROBILINOGEN 0.2 mg/dL (0.2 - 1)
[2019-08-31 22:22] LABS: BACTERIA,URINE FEW /HPF; EPITHELIAL CELLS,URINE MODERATE /LPF; WBC,URINE (MAN) 0-5 /HPF (0-5)
[2019-08-31 23:02] VITALS: BP 152/87
[2019-08-31] MEDS: DOCUSATE SODIUM 100 MG CAP PO PRN (23:17)
[2019-08-31] MEDS: ZOLPIDEM TARTRATE 5 MG TAB PO PRN (23:17)
[2019-09-01] VITALS (8 sets, daily range): BP systolic 130–157; BP diastolic 79–104
[2019-09-01] MEDS: MORPHINE SULFATE 2 MG/ML SYR 1ML IV PRN ×6 (04:00→22:00)
[2019-09-01 06:32] LABS: BASOPHILS # (AUTO) 0.1 (0.0-0.1); BASOPHILS % 1.9 % (0.0-1.0); EOSINOPHILS # (AUTO) 0.2 (0.0-0.4); EOSINOPHILS % 3.3 % (0.0-6.0); HEMATOCRIT 40.1 % (34.2-44.1); HEMOGLOBIN 13.2 g/dL (12.0-16.0); LYMPHOCYTES % 41.8 % (18.0-39.1); MEAN CORPUSCULAR HEMOGLOBIN 31.9 pg (28-32); MEAN CORPUSCULAR HGB CONC 32.9 g/dL (31-35); MEAN CORPUSCULAR VOLUME 96.9 fL (81-99); MONOCYTES # (AUTO) 0.5 (0.2-0.8); MONOCYTES % 10.2 % (4.4-11.3); NEUTROPHILS % 42.4 % (38.7-80.0); PLATELET COUNT 243 x10e3/uL (140-360); RED BLOOD COUNT 4.14 x10e6/uL (3.6-5.1); RED CELL DISTRIBUTION WIDTH 14.2 % (11.7-14.4)
[2019-09-01 07:18] LABS: ALBUMIN 3.1 g/dL (3.5-5.0); ALBUMIN/GLOBULIN RATIO 1.1 (0.8-2.0); ANION GAP 13.1 mmol/L (8-16); CALCIUM 8.5 mg/dL (8.4-10.2); CREATININE, SERUM 0.99 mg/dL (0.57-1.11); POTASSIUM 3.1 mmol/L (3.5-5.1)
[2019-09-01] MEDS: PROMETHAZINE 12.5MG/ NACL 0.9% 12.5 MG/50 ML BAG IV PRN (07:28)
[2019-09-01 07:32] LABS: CREATINE KINASE 57 IU/L (29-168)
--- NOTE | 2019-09-01 08:27 | NUR ---
H&P cc: cp HPI: 58yoF,PCP none, developed chest pain in mid chest, with radiation to left chest; minimal sob. Pt had LHC here, no intervention. PMH: CAD s/p >18 stents, s/p CABG 2015, pancreatitis, gastritis, Hypertensive heart ds, HLD, chr back pain, anxiety d/o, hypothyroidism, insomnia PShx: LAD stent, CABG, thyroidecotmy, hysterectomy, tonsillecotmy ALlergies; see emr FH/SH; mother and father= CABG, Meds; see MAR ROS: unreliable v/s revd PE tired appearing anicteric [id number] mod bs soft nt nd; left groin dressing in place; site soft; nontender no edema skin dry flat affect labs/meds revd A/P: 58yoF Chest pain- plavix loading; f/u echo; LHC no intervention; medical mgmt; CAD with hx stents and CABG- f/u echo Hypertensive heart ds- cont BB HLD_ statin Hypothyroidism- TSH high; Noncompliance? restart med; check TFTs Anxiety d/o- use BZD Insomnia- temazepam Prop: ppi dispo: Julien Forbes MD, PhD.
[2019-09-01] MEDS ORDERED: TEMAZEPAM 30 MG PO SCH (08:30)
[2019-09-01] MEDS ORDERED: CLOPIDOGREL BISULFATE 75 MG TAB PO SCH (09:00)
[2019-09-01 09:14] LABS: FREE THYROXINE INDEX 0.963 (1.4-3.8); THYROID STIMULATING HORMONE 52.545 uIU/mL (0.350-4.940)
[2019-09-01] MEDS: FAMOTIDINE 20 MG/2 ML VIAL IV SCH ×2 (09:30→21:00)
[2019-09-01] MEDS: AMLODIPINE BESYLATE 10 MG TAB PO SCH (09:31)
[2019-09-01] MEDS: PREDNISONE 20 MG TAB PO SCH (09:31)
[2019-09-01] MEDS: ASPIRIN 81 MG ENTERIC COATED PO SCH (09:31)
[2019-09-01] MEDS: METOPROLOL TARTRATE 50 MG TAB PO SCH (09:31)
[2019-09-01] MEDS ORDERED: HEPARIN SOD (PORCINE) 1000 UNIT/ML 30ML ONE (09:34)
[2019-09-01] MEDS ORDERED: FENTANYL CITRATE/PF 100MCG/2 ML INJ ONE (09:34)
[2019-09-01] MEDS ORDERED: LIDOCAINE HCL 2% LOCAL 20 ML VIAL ONE ×2 (09:34→10:22)
[2019-09-01] MEDS ORDERED: MIDAZOLAM HCL 2 MG/2 ML VIAL ONE (09:34)
[2019-09-01] MEDS ORDERED: SODIUM CHLORIDE 0.9% 1000ML 1,000 ML ONE (09:35)
[2019-09-01] MEDS ORDERED: HEPARIN SOD/SOD CHLORIDE 2,000 ML ONE (09:35)
[2019-09-01] MEDS ORDERED: IOPAMIDOL 370 MG/ML 200 ML INFUS..BTL INJ ONE (09:35)
[2019-09-01] MEDS ORDERED: NITROGLYCERIN/D5W 200 MCG/ML 0 ML ONE (09:35)
[2019-09-01] MEDS ORDERED: ATROPINE SULFATE 0.1 MG/ML 10ML SYR ONE (10:46)
[2019-09-01] MEDS: ONDANSETRON HCL INJ 2MG/ML 2ML 2 MG/ML VIAL IV PRN (11:35)
[2019-09-01] MEDS: LEVOTHYROXINE SODIUM 75 MCG TAB PO SCH (11:50)
[2019-09-01] MEDS: LEVOTHYROXINE SODIUM 100 MCG TAB PO SCH (11:50)
--- NOTE | 2019-09-01 17:01 | NUR ---
Nutrition Intervention Note RD Recommendation(s) for Physician: -Continue cardiac diet -Recommend Ensure Enlive BID for added nutrition The patient meets criteria for unspecified SEVERE protein-calorie malnutrition. Plan of Care: RD following, monitoring for tolerance and adequacy Nutrition reason for involvement: Nutrition Risk Trigger MST 3 RD Assessment (09/01/19) Pt is a 58 year old female admitted with chest pain. Pt stated she is having N/V and unable to tolerate her meals today. Pt reports eating < 50% of meals for the past couple of weeks. Pt also reported she had unintentionally lost weight and used to weigh 159 lbs 6 months ago. Pt currently has a weight of 135 lbs in chart. This would be a 15% weight loss in 6 months which is considered significant weight loss. Pt was interested in a nutrition supplement. Recommend Ensure Enlive BID for added nutrition. Will continue to monitor. Principal Problems/Diagnoses: chest pain PMH: CAD, status post CABG, hyperlipidemia, repeated pancreatitis, chronic back pain and anxiety GI: last BM unknown Skin: intact Labs: (08/31) Na 141, K 3,1, BUN 13, Cr 0.99, Glu 79, Ca 8.5 Meds: levothyroxine, zofran, morphine, pepcid, colace, lipitor, metoprolol Ht: 63 inches Wt: 135 lbs BMI: 23.9 kg/m2 IBW: 115 lbs Malnutrition Evaluation (09/01/19) The patient meets criteria for unspecified SEVERE protein-calorie malnutrition. Energy intake: <50% of estimated energy requirements for >5 days Weight loss: >10% in 6 months (Chronic) Fat loss: no loss identified Muscle loss: no loss identified Supporting Evidence: Fluid accumulation: no edema per MD note Functional Status: unable to evaluate Nutrition Prescription (Diet Order): cardiac Estimated Nutritional Needs: 6586-3535 calories/day (25-35 kcal/kg CBW) 61-92 g protein/day (1-1.5 g pro/kg CBW) Diet Adequacy: Not meeting calorie needs, Not meeting protein needs Tolerance: Not tolerating. Pt reports N/V. Diet Education Needs Assessment: Pt declined diet education materials. Nutrition Care Level: moderate Nutrition Diagnosis: Severe malnutrition related to medical status as evidenced by pt meeting < 50% of estimated energy needs for > 5 days and >10% weight loss in 6 months. Goal: Patient will meet 75-100% of estimated needs by follow up Progress: N/A Interventions: -fat/cholesterol/sodium -modified diet, Commercial beverage Monitoring/Evaluation: -Total energy intake, Total protein intake, Modified diet, Liquid supplement, Weight change Signed: Ria Martinez RD, LD
[2019-09-01 17:02] LABS: CREATINE KINASE 61 IU/L (29-168)
--- NOTE | 2019-09-01 17:36 | Operative Report ---
DATE OF PROCEDURE: SURGEON: Christiano Sullivan MD TITLE OF THE PROCEDURE: Left cardiac catheterization with graft injection. INDICATIONS: Unstable coronary syndrome, which patient continued to have severe chest pain in patient with known coronary artery disease, prior PCI and bypass surgery, smoker with several cardiac risk factors. TECHNICAL DETAILS: After the usual sterile preparation and draping procedure, intravenous Versed and fentanyl given for sedation. It was noted in the right common femoral area there is surgery there. For that reason, attention was made to the left common femoral. This was accessed and 4-Yoruba sheath established in place. Cirilo left 4 and 3DRC and right coronary artery by catheter used to engage the coronaries. Pigtail for hemodynamic measurement and left ventriculogram. At the end of the procedure, sheath was removed. Hemostasis achieved manually. No complication. No blood loss. RESULTS: A. Coronary angiogram: 1. Left main is free of disease. 2. LAD, there are two stents what it seems to be and there is twist in the stent with 99% lesion. There is competitive flow from PHELPS to LAD. 3. Circumflex coronary artery, minimal plaquing, very large circumflex. 4. Right coronary artery. There are patency of stent with 20% to 30% lesion across its course. 5. Left internal mammary artery to LAD is patent with competitive flow from the LAD proper. a. Hemodynamic: Aorta pressure 130/80. LV pressure 130/16. b. Left ventriculogram in the right on two oblique view showed normal size ventricle with an ejection fraction of 55%. Mild hypokinesis of the apex. IMPRESSION: 1. The access was only the left common femoral pulses. The right common was not done because of presence of scar and previous surgery. 2. Twisted LAD stent at 99%. 3. Patent PHELPS to LAD with competitive flow. 4. Patent stent to the right coronary artery. 5. Mild hypokinesis of the apex with ejection fraction of 55%. COMPLICATIONS: None. BLOOD LOSS: None. RECOMMENDATIONS: Aggressive medical therapy and stopping smoking. Christiano Sullivan MD MOJ/MODL /[id number]
--- NOTE | 2019-09-01 19:15 | NUR ---
patient received awake, alert, lying quietly in bed. no c/o pain noted. ivf continue to infuse without difficulty. pm assessment complete. patient instructed to call for assistance when needed.
--- NOTE | 2019-09-01 19:55 | NUR ---
patient moved to room 294 at this time. ekg monitor techleann Johnson notified of this move at this time.
[2019-09-01] MEDS: ATORVASTATIN 40 MG TAB PO SCH (21:00)
[2019-09-01] MEDS: ZOLPIDEM TARTRATE 5 MG TAB PO PRN (22:08)
[2019-09-02] VITALS (8 sets, daily range): BP systolic 116–176; BP diastolic 80–92
[2019-09-02] MEDS: ONDANSETRON HCL INJ 2MG/ML 2ML 2 MG/ML VIAL IV PRN ×4 (01:55→23:20)
[2019-09-02] MEDS: MORPHINE SULFATE 2 MG/ML SYR 1ML IV PRN ×6 (01:55→23:20)
[2019-09-02] MEDS: SODIUM CHLORIDE 0.9% 1000ML 1,000 ML IV SCH (02:00)
[2019-09-02] MEDS: LEVOTHYROXINE SODIUM 75 MCG TAB PO SCH (05:36)
[2019-09-02] MEDS: LEVOTHYROXINE SODIUM 100 MCG TAB PO SCH (05:36)
--- NOTE | 2019-09-02 06:58 | NUR ---
RECEIVED BEDSIDE SHIFT REPORT FROM OFF GOING NURSE. PATIENT IS RESTING IN BED. NO ACUTE DISTRESS NOTED. CALL LIGHT WITHIN REACH. BED IN THE LOWEST POSITION.
--- NOTE | 2019-09-02 07:26 | NUR ---
IM- progress note O/N see below ROS: unreliable v/s revd PE tired appearing anicteric ns1s2 mod bs soft nt nd; left groin dressing in place; site soft; nontender no edema skin dry flat affect labs/meds revd A/P: 58yoF Chest pain- plavix loading; f/u echo; LHC no intervention; medical mgmt; CAD with hx stents and CABG- f/u echo Hypertensive heart ds- cont BB HLD_ statin Hypothyroidism- TSH high; Noncompliance? restart med; check TFTs Anxiety d/o- use BZD Insomnia- temazepam Prop: ppi dispo: Abdominal wall hernia- tender- get CT; check labs; d/c planning; Julien Forbes MD, PhD.
[2019-09-02] MEDS ORDERED: SODIUM CHLORIDE 0.45% 1,000 ML IV ONE (07:30)
[2019-09-02] MEDS ORDERED: MORPHINE SULFATE 2 MG/ML SYR 1ML IV PRN (07:45)
[2019-09-02] MEDS: ALPRAZOLAM 0.5 MG TAB PO PRN ×2 (07:50→16:35)
[2019-09-02] MEDS: SODIUM CHLORIDE 0.45% 1,000 ML IV SCH (07:50)
[2019-09-02] MEDS: TRAMADOL HCL 50 MG TAB PO PRN ×2 (07:50→16:35)
[2019-09-02] MEDS: ASPIRIN 81 MG ENTERIC COATED PO SCH (07:53)
[2019-09-02] MEDS: METOPROLOL SUCCINATE 25 MG TAB XL PO SCH (07:53)
[2019-09-02] MEDS: AMLODIPINE BESYLATE 10 MG TAB PO SCH (07:53)
[2019-09-02] MEDS: FAMOTIDINE 20 MG/2 ML VIAL IV SCH ×2 (07:53→21:00)
[2019-09-02] MEDS ORDERED: POTASSIUM CHLORIDE 20 MEQ TAB CR PO STA (07:58)
[2019-09-02] MEDS ORDERED: DIPHENHYDRAMINE HCL INJ 50 MG/ML VIAL IV ONE (08:00)
--- NOTE | 2019-09-02 10:02 | Diagnostic Imaging Report ---
EXAM: CT Abdomen and Pelvis WITH contrast INDICATION: Abdominal wall hernia related pain. COMPARISON: None. TECHNIQUE: Abdomen and pelvis were scanned utilizing a multidetector helical scanner from the lung base to the pubic symphysis after administration of IV contrast. Coronal and sagittal reformations were obtained. Routine protocol was performed. Scan was performed during portal venous phase. IV CONTRAST: 100 cc of Isovue-370 ORAL CONTRAST: None COMPLICATIONS: None RADIATION DOSE: Total DLP: 387.4 mGy*cm Estimated effective dose: (DLP x 0.015 x size factor) mSv CTDIvol has been reviewed. It is below the limits set by the Radiation Protocol Committee (RPC). FINDINGS: Examination somewhat limited by streak artifact from spinal hardware. LINES and TUBES: None. LOWER THORAX: Mild dependent subsegmental atelectasis. Coronary atherosclerosis and coronary stents. HEPATOBILIARY: No evidence of focal lesion. There is intra- and extra- hepatic biliary dilation likely post cholecystectomy reservoir effect. GALLBLADDER: Status post cholecystectomy. SPLEEN: No splenomegaly. PANCREAS: No focal masses or ductal dilatation. ADRENALS: No adrenal nodules KIDNEYS/URETERS: Right renal cortical scarring. No evidence of hydronephrosis, solid mass or stone. GI TRACT: There are mildly dilated jejunal loops in the left upper quadrant, which measure up to 3.2 cm. There is a possible transition point in the jejunum on series 2, image 32. There is fecalization of jejunal loops (series 2, image 48), which may represent obstructive process versus slow transit. No evidence of pneumatosis. The stomach is not dilated. The distal small bowel loops are decompressed. There is stool within the colon. Retained contrast within the colon. Colonic diverticulosis without evidence of diverticulitis. There are post surgical changes of appendectomy. Small hiatal hernia. PELVIC ORGANS/BLADDER: Status post hysterectomy. LYMPH NODES: No lymphadenopathy. VESSELS: Retroaortic left renal vein. Mild atherosclerotic calcifications of the abdominal aorta and branch vessels. PERITONEUM / RETROPERITONEUM: No free air or fluid. BONES AND SOFT TISSUES: There may be a tiny right ventral abdominal wall fat-containing hernia, better seen on sagittal series 300, image 53, and axial image 30. There is mild associated stranding. No acute osseous abnormality. Status post posterior decompression and fusion from L3 through S1. There are intervertebral spacers at L3-L4, L4-5, and L5-S1. Surgical clips and inflammatory changes in the right inguinal region. CONCLUSION: Mildly dilated jejunal loops in the left upper quadrant may represent low-grade partial small bowel obstruction versus ileus. Possible tiny right ventral abdominal wall fat-containing hernia, best seen on sagittal images with associated mild stranding suggestive of inflammation, suggest clinical correlation for reducibility and evaluate for incarceration. Signed by: Dr. Makenzie Freeman MD on 09/02/2019 9:59 AM
[2019-09-02] MEDS ORDERED: IOPAMIDOL 370 MG/ML 200 ML INFUS..BTL INJ ONE (11:12)
--- NOTE | 2019-09-02 19:14 | NUR ---
BEDSIDE SHIFT REPORT GIVEN TO ONCOMING NURSE. PATIENT IS RESTING IN BED. NO ACUTE DISTRESS NOTED. CALL LIGHT WITHIN REACH. BED IN THE LOWEST POSITION.
[2019-09-02] MEDS: ATORVASTATIN 40 MG TAB PO SCH (21:00)
[2019-09-02] MEDS: ZOLPIDEM TARTRATE 5 MG TAB PO PRN (21:26)
[2019-09-03] VITALS (8 sets, daily range): BP systolic 111–146; BP diastolic 74–104
[2019-09-03] MEDS: SODIUM CHLORIDE 0.45% 1,000 ML IV SCH ×2 (02:25→18:15)
[2019-09-03] MEDS: TRAMADOL HCL 50 MG TAB PO PRN ×2 (02:25→14:40)
[2019-09-03] MEDS: ONDANSETRON HCL INJ 2MG/ML 2ML 2 MG/ML VIAL IV PRN ×5 (04:35→21:25)
[2019-09-03] MEDS: MORPHINE SULFATE 2 MG/ML SYR 1ML IV PRN ×5 (04:35→21:25)
[2019-09-03] MEDS: LEVOTHYROXINE SODIUM 100 MCG TAB PO SCH (05:12)
[2019-09-03] MEDS: LEVOTHYROXINE SODIUM 75 MCG TAB PO SCH (05:12)
[2019-09-03] MEDS ORDERED: MAGNESIUM HYDROXIDE 30 ML UDC PO ONE (06:45)
--- NOTE | 2019-09-03 06:48 | NUR ---
RECEIVED BEDSIDE SHIFT REPORT FROM OFF GOING NURSE. PATIENT IS RESTING IN BED, NO ACUTE DISTRESS NOTED. CALL LIGHT WITHIN REACH. BED IN THE LOWEST POSITION.
--- NOTE | 2019-09-03 07:59 | Consultation ---
DATE OF CONSULTATION: 09/03/2019 REFERRING PHYSICIAN: Julien Forbes MD. HISTORY OF PRESENT ILLNESS: The patient is a 58-year-old female admitted to the hospital with chest pain, also has complaints of constipation as well as epigastric abdominal pain. She says she has a lump in this area that is painful. She was evaluated with CT of the abdomen and pelvis, which revealed ventral hernia as well as findings suggestive of possible partial intestinal obstruction. The patient says she is passing flatus, but she has had constipation and abdominal pain for a couple of weeks. She was admitted to the hospital with chest pain, had a cardiac catheterization, which revealed previous stents, but flow beyond the area of a 99% stenosis through the left internal mammary artery. PAST MEDICAL HISTORY: As stated above, history of coronary artery disease, previous coronary bypass surgery history of hypertension, hyperlipidemia, and previous pancreatitis. PAST SURGICAL HISTORY: Previous surgeries include two-vessel coronary bypass, thyroidectomy, hysterectomy, and tonsillectomy. ALLERGIES: SHE HAS ALLERGY TO PENICILLIN, REGLAN, TRAMADOL AND COMPAZINE. MEDICATIONS: At home lisinopril, Norvasc, metoprolol, Lipitor and aspirin. FAMILY HISTORY: Noncontributory. SOCIAL HISTORY: The patient occasionally uses marijuana, occasionally drinks alcohol. She is a former smoker. REVIEW OF SYSTEMS: As stated above, otherwise was negative. She has had no fever or weight loss. PHYSICAL EXAMINATION: GENERAL: The patient is awake and alert, in no distress. VITAL SIGNS: Normal. HEENT: Sclerae is not icteric. NECK: No masses. LUNGS: Equal breath sounds are clear bilaterally. CARDIAC: Regular rate and rhythm with no murmur. ABDOMEN: Soft. There is slight distention. There is a tender mass in the epigastrium, which is not reducible. EXTREMITIES: No edema. NEUROLOGIC: Grossly intact. ASSESSMENT: This is a 58-year-old female with coronary artery disease with recent cardiac catheterization, who has chronically incarcerated ventral hernia. The patient probably benefitted from repair of this hernia, possible laparoscopy with findings suggestive of partial intestinal obstruction were seen on CT scan if she is medically stable for surgery. Procedure was explained to the patient. Thank you for asking me to see Ms. Higginbotham. MD LASHAY Cervantes/COLLINL /[id number]
[2019-09-03] MEDS: AMLODIPINE BESYLATE 10 MG TAB PO SCH (08:24)
[2019-09-03] MEDS: METOPROLOL SUCCINATE 25 MG TAB XL PO SCH (08:24)
[2019-09-03] MEDS: ASPIRIN 81 MG ENTERIC COATED PO SCH (08:24)
[2019-09-03] MEDS: FAMOTIDINE 20 MG/2 ML VIAL IV SCH ×2 (08:24→21:00)
[2019-09-03] MEDS: ALPRAZOLAM 0.5 MG TAB PO PRN ×2 (08:25→16:20)
[2019-09-03 10:06] LABS: BLOOD UREA NITROGEN 14 mg/dL (7-26); BUN/CREATININE RATIO 16 (6-25); CARBON DIOXIDE 23 mmol/L (22-29); CHLORIDE 105 mmol/L (98-107); CREATININE, SERUM 0.89 mg/dL (0.57-1.11); EST GLOMERULAR FILTRATION RATE > 60 ML/MIN (60-); GLUCOSE 104 mg/dL (74-118); SODIUM 137 mmol/L (136-145)
--- NOTE | 2019-09-03 17:03 | NUR ---
IM- progress note O/N see below ROS: unreliable v/s revd PE tired appearing anicteric ns1s2 mod bs soft nt nd; left groin dressing in place; site soft; nontender no edema skin dry flat affect labs/meds revd A/P: 58yoF Chest pain- plavix loading; f/u echo; LHC no intervention; medical mgmt; CAD with hx stents and CABG- f/u echo Hypertensive heart ds- cont BB HLD_ statin Hypothyroidism- TSH high; Noncompliance? restart med; check TFTs Anxiety d/o- use BZD Insomnia- temazepam Prop: ppi dispo: Abdominal wall hernia- tender- get CT; check labs; d/c planning; 09-02 CHronically incarcerated hernia- sx planned; Julien Forbes MD, PhD.
[2019-09-03] MEDS ORDERED: SEVOFLURANE INHAL SOLN 250 ML PEN BTL ONE (17:29)
[2019-09-03] MEDS ORDERED: NEOSTIGMINE 1 MG/ML 10ML VIAL ONE (17:29)
[2019-09-03] MEDS ORDERED: GLYCOPYRROLATE INJ 0.2 MG/ML VIAL ONE (17:29)
[2019-09-03] MEDS ORDERED: EPHEDRINE SULFATE INJ 50 MG/ML VIAL ONE (17:29)
[2019-09-03] MEDS ORDERED: ROCURONIUM BROMIDE 10 MG/ML 5ML VIAL IV ONE (17:29)
[2019-09-03] MEDS ORDERED: LIDOCAINE HCL 2% LOCAL INJ 5 ML SDV VIAL INJ ONE (17:29)
[2019-09-03] MEDS ORDERED: ONDANSETRON HCL INJ 2MG/ML 2ML 2 MG/ML VIAL ONE (17:29)
[2019-09-03] MEDS ORDERED: LIDOCAINE HCL 2% JELLY 5 ML TUBE ONE (17:29)
[2019-09-03] MEDS ORDERED: ETOMIDATE 2 MG/ML 10 ML INJ IV ONE (17:29)
--- NOTE | 2019-09-03 19:00 | NUR ---
BEDSIDE SHIFT REPORT GIVEN TO ONCOMING NURSE. PATIENT IS RESTING IN BED. NO ACUTE DISTRESS NOTED. CALL LIGHT WITHIN REACH. BED IN THE LOWEST POSITION. BED ALARM ON.
--- NOTE | 2019-09-03 19:15 | NUR ---
patient received awake, alert, lying quietly in bed. no c/o pain noted at this time. ivf continue to infuse without difficulty. pm assessment complete. patient instructed to call for assistance when needed.
[2019-09-03] MEDS: ATORVASTATIN 40 MG TAB PO SCH (21:00)
[2019-09-03] MEDS: ZOLPIDEM TARTRATE 5 MG TAB PO PRN (21:25)
--- NOTE | 2019-09-03 21:25 | NUR ---
patient medicated with morphine 4mg and zofran 4mg ivp for c/o upper abd pain 10/12 at this time per patients request. dosage drawn up was verified with Dileep Sin RN due to comment made to day nurse by patient that i hadn't given her full dose of pain medication.
[2019-09-04] VITALS (8 sets, daily range): BP systolic 96–151; BP diastolic 61–93
[2019-09-04] MEDS: ONDANSETRON HCL INJ 2MG/ML 2ML 2 MG/ML VIAL IV PRN ×5 (02:05→20:15)
[2019-09-04] MEDS: MORPHINE SULFATE 2 MG/ML SYR 1ML IV PRN ×4 (02:05→14:45)
--- NOTE | 2019-09-04 02:05 | NUR ---
patient medicated with morphine 4mg and zofran 4mg ivp for c/o upper abd pain 10/12 at this time per patients request. dose verified with Keith Kramer RN due to patient saying she doesn't feel like she's getting a complete dose.
[2019-09-04] MEDS: LEVOTHYROXINE SODIUM 100 MCG TAB PO SCH (06:00)
[2019-09-04] MEDS: LEVOTHYROXINE SODIUM 75 MCG TAB PO SCH (06:00)
--- NOTE | 2019-09-04 06:09 | NUR ---
patient medicated with morphine 4mg and zofran 4mg ivp for c/o upper abd pain 09/12 at this time per patients request. dosage verified with Keith Kramer RN.
[2019-09-04 06:33] LABS: ANION GAP 12.4 mmol/L (8-16); CREATININE, SERUM 0.96 mg/dL (0.57-1.11); POTASSIUM 4.4 mmol/L (3.5-5.1)
[2019-09-04] MEDS ORDERED: MINERAL OIL 132 ML BTL PR ONE (06:50)
[2019-09-04] MEDS: FAMOTIDINE 20 MG/2 ML VIAL IV SCH ×2 (07:46→20:25)
[2019-09-04] MEDS: ALPRAZOLAM 0.5 MG TAB PO PRN ×2 (07:47→14:18)
[2019-09-04] MEDS: TRAMADOL HCL 50 MG TAB PO PRN (07:56)
[2019-09-04] MEDS: METOPROLOL SUCCINATE 25 MG TAB XL PO SCH (09:00)
[2019-09-04] MEDS: AMLODIPINE BESYLATE 10 MG TAB PO SCH (09:00)
[2019-09-04] MEDS: ASPIRIN 81 MG ENTERIC COATED PO SCH (09:00)
[2019-09-04] MEDS ORDERED: BUPIVACAINE HCL 0.5% INJ 30 ML VIAL INJ ONE (10:02)
--- NOTE | 2019-09-04 10:05 | NUR ---
ASSESSMENT: Spiritual concern Pt anxious about upcoming procedure. Intervention: Provided empathic listening and prayer. Provided information on how to contact cath laboratory technician, if needed. Outcome: Pt expressed appreciation for visit. No need to follow at this time. MARIVEL SALES Label Operator Spiritual Care Department O: [phone]
[2019-09-04] MEDS ORDERED: BACITRACIN 50,000 UNIT VIAL ONE (10:38)
[2019-09-04] MEDS: SODIUM CHLORIDE 0.45% 1,000 ML IV SCH (10:56)
--- NOTE | 2019-09-04 11:30 | NUR ---
Pt transferred to OR at this time. 0 s/s of acute distress noted at time of transfers. Family member at the bedside and is aware of procedure.
[2019-09-04] MEDS ORDERED: LEVOFLOXACIN 500MG/D5W 100ML 100 ML IV ONE (12:07)
[2019-09-04] MEDS ORDERED: HYDROCODONE/APAP 5MG-325MG TAB PO PRN (12:30)
[2019-09-04] MEDS ORDERED: FENTANYL CITRATE/PF 100MCG/2 ML INJ ONE ×2 (13:00→13:58)
[2019-09-04] MEDS ORDERED: MIDAZOLAM HCL 2 MG/2 ML VIAL ONE (13:58)
--- NOTE | 2019-09-04 14:00 | NUR ---
Received pt from PACU at this time. Pt had ventrical hernia repair with lysis of adhesions. Pt is aox3 and able to verbalize needs. Pt having lots of anxiety at this time. 4 trochar sites noted to abdomen, which are covered with bandaid and dry. Family at the bedside. SCDs to bilateral lower ext.
--- NOTE | 2019-09-04 14:13 | Operative Report ---
DATE OF PROCEDURE: 09/04/2019 SURGEON: Ketan Fan MD PREOPERATIVE DIAGNOSES: Incarcerated ventral hernia, partial small bowel obstruction. POSTOPERATIVE DIAGNOSIS: Incarcerated ventral hernia, partial small bowel obstruction. PROCEDURES: Diagnostic laparoscopy, laparoscopic lysis of adhesions, repair of incarcerated ventral hernia. CRYPTOGRAPHIC TECHNICIAN: None. ANESTHESIA: General endotracheal. INDICATIONS AND FINDINGS: The patient is a 58-year-old female, who admitted to the hospital with chest pain, she had a cardiac evaluation and then also pain in the epigastrium, where there was a tender mass which was not reducible. She also had CT findings suggestive of possible partial small bowel obstruction. At Surgery, the patient was found to have adhesions involving omentum. There was a partial small bowel obstruction with the point of transition, where there was some inspissated solid fecal material, but no mass was seen with manipulation of the fecal material passed into the more distal bowel. No definite mechanical obstruction seen after the adhesions were lysed. There was also found to be a ventral hernia containing omentum with a fascial defect was about 1.1 cm. TECHNIQUE: After adequate general endotracheal anesthesia, the patient was in supine position, the abdomen was prepped and draped in sterile fashion with ChloraPrep solution. Skin in the umbilicus was infiltrated with 0.5% Marcaine. Incision was made in the umbilicus. Abdominal wall was elevated and Veress needle was introduced. Pneumoperitoneum was then created. A 5 mm trocar and cannula were then passed through this wound. Laparoscopic camera was introduced. Initial laparoscopy with no fluid seen. There were adhesions in the midline involving omentum. There was noted to be some dilated small bowel. A 5 mm trocar and cannula were placed in left upper quadrant and a 2nd 5 mm trocar and cannula were placed in left lower quadrant. The adhesions in midline involving omentum were lysed. As adhesions lysed, there was found to be dilated small bowel, but was unclear whether this was involved with adhesions or not. All the adhesions of the abdominal wall were lysed. The small bowel was examined, starting at the terminal ileum, this was followed proximally. This bowel was noted to be collapsed, followed until there was a transition point found, where the transition was there was found to be some inspissated fecal material. Using the graspers, this was broken up and milked distally. There was no definite mechanical obstruction at this point, but the fecal material may have been the cause of the obstruction may inspissated, but with some manipulation was able to pass beyond this area. The bowel all appeared viable and no mass was seen. The liver appeared normal. Ectopy seen appeared normal was collapsed. The peritoneal cavity irrigated with saline. All fluid was aspirated. Instruments and cannulas were removed. The hernia was seen in the upper midline. Incision was made transversely over the hernia, it carried down through subcutaneous tissue, the herniated mass identified. There was some omentum and preperitoneal fat, which was herniated. This was dissected free from the surrounding tissues down to the fascia and freed from the fascial structure comes to the defect and reduced beneath the fascia. The fascial defect was then closed transversely with a running suture of #0 Prolene. Hemostasis in the wound was seen to be adequate. The wound was then infiltrated with 0.5% Marcaine. The wound was then closed with 3-0 Vicryl subcutaneous tissue and all wounds closed with shruthi. Sterile dressing was applied to each wound. The patient tolerated the procedure well. Estimated blood loss was 5 mL. There were no complications. All counts were correct. The patient was taken to the recovery room in satisfactory condition. MD LASHAY Cervantes/COLLINL /[id number] cc: Julien Forbes MD
--- NOTE | 2019-09-04 14:48 | Consultation ---
DATE OF CONSULTATION: 09/03/2019 Endocrine Consultation HISTORY OF PRESENT ILLNESS: This is a 58-year-old white female, who was referred to me for evaluation of hypothyroidism. The patient reportedly had multinodular goiter. She had a total thyroidectomy done several years back and has been taking Synthroid 0.2 mg once daily. For some reason, her doses has been decreased to 0.075 mg once daily in the last few months. Her TSH was found to be significantly elevated at 52.54 and 64.63. The patient also has history of coronary artery disease, status post CABG. She is admitted to the hospital because of incarcerated ventral hernia and scheduled for surgery. MEDICATIONS: She is on several medications at home includin. Metoprolol. 2. Lipitor 80 mg once daily. 3. Lorazepam. PHYSICAL EXAMINATION: GENERAL: Today, the patient is alert, awake, little bit apprehensive. VITAL SIGNS: Her heart rate is around 60 and blood pressure 130/80 mmHg. HEENT: Essentially unremarkable. She has a neck scar. Thyroid is not palpable. CHEST: Bilateral vesicular breathing. No rales. CARDIOVASCULAR: First and second heart sounds. There is no third or fourth heart sounds. Ejection systolic murmur grade 2/6. The patient has evidence of mild pedal edema and delayed relaxation of the ankle reflex. IMPRESSION: 1. Status post thyroidectomy. 2. Severe hypothyroidism. 3. Coronary artery disease, status post coronary artery bypass graft. 4. Incarcerated ventral hernia. PLAN: At this time is to do a free T4 and peroxidase antibody. I will review the old records and start her back on increased thyroid dose. Thank you for referring this patient. I will follow this patient with you. MD DANIEL CarlosK/COLLINL /[id number]
--- NOTE | 2019-09-04 16:00 | NUR ---
Pt complaining that pain to abdomen is not being controlled with current medication. Notified Dr. Fan and received orders to stop norco and morphine and start Dilaudid 1mg IV q3h PRN.
[2019-09-04] MEDS: HYDROMORPHONE 1MG/1ML INJ IV PRN ×3 (16:21→23:45)
[2019-09-04] MEDS: SODIUM CHLORIDE 0.9% 1000ML 1,000 ML IV SCH ×2 (16:22→20:25)
--- NOTE | 2019-09-04 20:00 | NUR ---
pt received. pt assessed. no ss of distress noted. pt co constant pain to abd. discussed pain mngt. pt verbalized understanding. will medicate per orders. x2 trocar sites cdi. tele in place. assisted pt up to bathroom and back to bed with minimal assistance. pt tolerated well. will cont to follow poc. call horner within reach.
[2019-09-04] MEDS: ATORVASTATIN 40 MG TAB PO SCH (20:25)
[2019-09-04] MEDS: ZOLPIDEM TARTRATE 5 MG TAB PO PRN (22:15)
[2019-09-05] VITALS (7 sets, daily range): BP systolic 106–141; BP diastolic 72–99
--- NOTE | 2019-09-05 | NUR ---
pt refusing iv fluids at time. pt stated she wanted a break from the iv fluid. no distress noted. call horner within reach.
[2019-09-05] MEDS: ONDANSETRON HCL INJ 2MG/ML 2ML 2 MG/ML VIAL IV PRN ×2 (02:48→10:10)
[2019-09-05] MEDS: HYDROMORPHONE 1MG/1ML INJ IV PRN ×4 (02:48→13:20)
[2019-09-05] MEDS: LEVOTHYROXINE SODIUM 100 MCG TAB PO SCH (05:49)
[2019-09-05] MEDS: LEVOTHYROXINE SODIUM 75 MCG TAB PO SCH (05:49)
--- NOTE | 2019-09-05 05:55 | NUR ---
pt co constant pain to abd. discussed pain mngt. pt verbalized understanding. will medicate per orders. call horner within reach.
--- NOTE | 2019-09-05 06:25 | NUR ---
IM- progress note O/N see below ROS: unreliable v/s revd PE tired appearing anicteric ns1s2 mod bs soft nt nd; left groin dressing in place; site soft; nontender no edema skin dry flat affect labs/meds revd A/P: 58yoF Chest pain- plavix loading; f/u echo; LHC no intervention; medical mgmt; CAD with hx stents and CABG- f/u echo Hypertensive heart ds- cont BB HLD_ statin Hypothyroidism- TSH high; Noncompliance? restart med; check TFTs Anxiety d/o- use BZD Insomnia- temazepam Prop: ppi dispo: Abdominal wall hernia- tender- get CT; check labs; d/c planning; 09-02 CHronically incarcerated hernia- sx planned; 09-03 awaiting surgery for hernia Julien Forbes MD, PhD.
--- NOTE | 2019-09-05 06:26 | NUR ---
IM- progress note O/N see below ROS: unreliable v/s revd PE tired appearing anicteric ns1s2 mod bs soft nt nd; left groin dressing in place; site soft; nontender no edema skin dry flat affect labs/meds revd A/P: 58yoF Chest pain- plavix loading; f/u echo; LHC no intervention; medical mgmt; CAD with hx stents and CABG- f/u echo Hypertensive heart ds- cont BB HLD_ statin Hypothyroidism- TSH high; Noncompliance? restart med; check TFTs Anxiety d/o- use BZD Insomnia- temazepam Prop: ppi dispo: Abdominal wall hernia- tender- get CT; check labs; d/c planning; 09-02 CHronically incarcerated hernia- sx planned; 6- awaiting surgery for hernia 6-2 doing better; cont care; f/u labs; Julien Forbes MD, PhD.
[2019-09-05] MEDS: TRAMADOL HCL 50 MG TAB PO PRN (07:50)
[2019-09-05] MEDS: FAMOTIDINE 20 MG/2 ML VIAL IV SCH (07:50)
[2019-09-05] MEDS: AMLODIPINE BESYLATE 10 MG TAB PO SCH (07:50)
[2019-09-05] MEDS: ALPRAZOLAM 0.5 MG TAB PO PRN ×2 (07:50→20:50)
[2019-09-05] MEDS: METOPROLOL SUCCINATE 25 MG TAB XL PO SCH (07:50)
[2019-09-05] MEDS: ASPIRIN 81 MG ENTERIC COATED PO SCH (07:50)
[2019-09-05] MEDS: DOCUSATE SODIUM 100 MG CAP PO PRN (10:31)
[2019-09-05] MEDS: SODIUM CHLORIDE 0.9% 1000ML 1,000 ML IV SCH (15:03)
[2019-09-05] MEDS ORDERED: HYDROMORPHONE 1MG/1ML INJ IV PRN (18:45)
--- NOTE | 2019-09-05 19:30 | NUR ---
pt received. pt assessed. no ss of distress noted. pt co constant pain to abd. discussed pain mngt. pt verbalized understanding. right ej infiltrated. multiple attempts for iv access made and unsuccessful. iv dcd, catheter tip intact. drsg applied to site. x2 trocar sites cdi. tele in place. assisted pt up to bathroom and back to bed with minimal assistance. pt tolerated well. spoke to dr castle regarding no iv access. new orders received. call horner within reach.
[2019-09-05] MEDS ORDERED: OXYCODONE HCL 10 MG TAB CR PO PRN (20:00)
[2019-09-05] MEDS: ONDANSETRON HCL 4 MG ORAL DISINTEGRATING TAB PO PRN (20:50)
[2019-09-05] MEDS: OXYCODONE HCL IR 5 MG TAB PO PRN (20:50)
[2019-09-05] MEDS: ATORVASTATIN 40 MG TAB PO SCH (20:51)
--- NOTE | 2019-09-05 22:00 | NUR ---
pt stated her bed was uncomfortable. air mattress applied at time. no distress noted. call horner within reach.
[2019-09-05] MEDS: ZOLPIDEM TARTRATE 5 MG TAB PO PRN (23:00)
[2019-09-06] VITALS (8 sets, daily range): BP systolic 109–139; BP diastolic 80–93
[2019-09-06] MEDS: OXYCODONE HCL IR 5 MG TAB PO PRN ×4 (03:30→21:30)
[2019-09-06] MEDS: ONDANSETRON HCL 4 MG ORAL DISINTEGRATING TAB PO PRN ×2 (03:30→08:27)
--- NOTE | 2019-09-06 04:00 | NUR ---
tele reported leads off. leads replaced. no ss of distress noted. call horner within reach.
[2019-09-06] MEDS ORDERED: LEVOTHYROXINE SODIUM 100 MCG TAB PO ONE (05:00)
[2019-09-06] MEDS ORDERED: LEVOTHYROXINE SODIUM 100 MCG TAB PO SCH (06:00)
--- NOTE | 2019-09-06 06:01 | NUR ---
pt resting. no ss of distress noted. call horner within reach.
[2019-09-06] MEDS: FAMOTIDINE 20 MG TAB PO SCH ×2 (07:30→15:28)
[2019-09-06] MEDS: ASPIRIN 81 MG ENTERIC COATED PO SCH (08:25)
[2019-09-06] MEDS: AMLODIPINE BESYLATE 10 MG TAB PO SCH (08:26)
[2019-09-06] MEDS: METOPROLOL SUCCINATE 25 MG TAB XL PO SCH (08:27)
[2019-09-06] MEDS: ALPRAZOLAM 0.5 MG TAB PO PRN ×2 (08:27→17:28)
[2019-09-06] MEDS: DOCUSATE SODIUM 100 MG CAP PO PRN (08:27)
[2019-09-06] MEDS: TRAMADOL HCL 50 MG TAB PO PRN (08:27)
--- NOTE | 2019-09-06 10:43 | NUR ---
IM- progress note O/N see below ROS: unreliable v/s revd PE tired appearing anicteric ns1s2 mod bs soft nt nd; left groin dressing in place; site soft; nontender no edema skin dry flat affect labs/meds revd A/P: 58yoF Chest pain- plavix loading; f/u echo; LHC no intervention; medical mgmt; CAD with hx stents and CABG- f/u echo Hypertensive heart ds- cont BB HLD_ statin Hypothyroidism- TSH high; Noncompliance? restart med; check TFTs Anxiety d/o- use BZD Insomnia- temazepam Prop: ppi dispo: Abdominal wall hernia- tender- get CT; check labs; d/c planning; 09-02 CHronically incarcerated hernia- sx planned; 6- awaiting surgery for hernia 6-2 doing better; cont care; f/u labs; 6-3 check labs; d/c planning; Julien Forbes MD, PhD.
[2019-09-06] MEDS ORDERED: ASPIRIN EC81 MG PO (10:47)
[2019-09-06] MEDS ORDERED: TOPROL XL25 MG PO (10:47)
[2019-09-06] MEDS ORDERED: SENNA LAX8.6 MG PO (10:47)
[2019-09-06] MEDS ORDERED: ULTRAM 50MG50 MG PO (10:47)
[2019-09-06] MEDS ORDERED: COLACE100 MG PO (10:47)
[2019-09-06] MEDS ORDERED: Atorvastatin PO (10:47)
[2019-09-06] MEDS ORDERED: CITRATE OF MAGNESIA 300ML BOTTLE PO ONE (11:35)
[2019-09-06 13:23] LABS: BASOPHILS # (AUTO) 0.1 (0.0-0.1); BASOPHILS % 1.1 % (0.0-1.0); EOSINOPHILS # (AUTO) 0.2 (0.0-0.4); EOSINOPHILS % 3.3 % (0.0-6.0); HEMATOCRIT 42.3 % (34.2-44.1); HEMOGLOBIN 13.9 g/dL (12.0-16.0); LYMPHOCYTES # (AUTO) 1.9 (1.0-3.2); LYMPHOCYTES % 33.6 % (18.0-39.1); MEAN CORPUSCULAR HEMOGLOBIN 31.4 pg (28-32); MEAN CORPUSCULAR HGB CONC 32.9 g/dL (31-35); MEAN CORPUSCULAR VOLUME 95.5 fL (81-99); MONOCYTES # (AUTO) 0.6 (0.2-0.8); NEUTROPHILS # (AUTO) 2.9 (2.1-6.9); NEUTROPHILS % 51.5 % (38.7-80.0); PLATELET COUNT 254 x10e3/uL (140-360); RED BLOOD COUNT 4.43 x10e6/uL (3.6-5.1); RED CELL DISTRIBUTION WIDTH 13.8 % (11.7-14.4)
--- NOTE | 2019-09-06 13:23 | NUR ---
ASSESSMENT: Spiritual concern Pt requested video journalist visit. Pt worried about illness. Pt requests prayer. Pt's , To, at bedside. Pt identifies as [employer]. Intervention: Provided unhurried empathic listening and pastoral presence. Facilitated storytelling. Provided prayer. Outcome: Pt & expressed appreciation for visit and support. Will follow as able. MARIVEL SALES [facility] Department O: [phone]
[2019-09-06 13:47] LABS: ANION GAP 16.8 mmol/L (8-16); CALCIUM 9.6 mg/dL (8.4-10.2); CREATININE, SERUM 1.32 mg/dL (0.57-1.11); MAGNESIUM 1.9 MG/DL (1.3-2.1); POTASSIUM 4.8 mmol/L (3.5-5.1)
[2019-09-06 14:44] LABS: ANISOCYTOSIS SLIG; RBC MORPHOLOGY COMMENT NORMAL
[2019-09-06 14:45] LABS: HYPOCHROMASIA SLIGHT; PLATELET ESTIMATE ADEQUATE; PLATELET MORPHOLOGY COMMENT FEW GIANT; POIKILOCYTOSIS SLIG
--- NOTE | 2019-09-06 17:45 | NUR ---
Patient is awaiting a bowel movement. Patient was given magnesium citrate per Dr. Fan's order. Patient has not had a bowel movement and has had no gas. This account underwriter contacted Dr. Fan for further medications and he stated "he wanted to give it time". No new orders given. Will continue to monitor.
--- NOTE | 2019-09-06 18:00 | NUR ---
Nutrition Intervention Note RD Recommendation(s) for Physician: -Continue current diet as ordered -Recommend Ensure Enlive BID for added nutrition The patient meets criteria for unspecified SEVERE protein-calorie malnutrition. Plan of Care: RD following, monitoring for tolerance and adequacy Nutrition reason for involvement: follow up RD Assessment 09/05: Follow up. Pt had a procedure regarding lysis of adhesion and repair of incarcerated ventral hernia on 09/03. Pt stated she is still eating <50% of her meals. Pt is awaiting to have a BM per RN. Pt reports some nausea and stated she had vomited yesterday. Pt is drinking Ensure nutrition supplements. Will continue to monitor. (09/01/19) Pt is a 58 year old female admitted with chest pain. Pt stated she is having N/V and unable to tolerate her meals today. Pt reports eating < 50% of meals for the past couple of weeks. Pt also reported she had unintentionally lost weight and used to weigh 159 lbs 6 months ago. Pt currently has a weight of 135 lbs in chart. This would be a 15% weight loss in 6 months which is considered significant weight loss. Pt was interested in a nutrition supplement. Recommend Ensure Enlive BID for added nutrition. Will continue to monitor. Principal Problems/Diagnoses: chest pain PMH: CAD, status post CABG, hyperlipidemia, repeated pancreatitis, chronic back pain and anxiety GI: pt is awaiting to have a BM Skin: intact Labs: 09/05: Na 137, K 4.8, BUN 21, Cr 1.32, Ca 9.6 (08/31) Na 141, K 3,1, BUN 13, Cr 0.99, Glu 79, Ca 8.5 Meds: zofran, metoprolol, colace, atorvastatin, pepcid Ht: 63 inches Wt: 135 lbs BMI: 23.9 kg/m2 IBW: 115 lbs Malnutrition Evaluation (09/01/19) The patient meets criteria for unspecified SEVERE protein-calorie malnutrition. Energy intake: <50% of estimated energy requirements for >5 days Weight loss: >10% in 6 months (Chronic) Fat loss: no loss identified Muscle loss: no loss identified Supporting Evidence: Fluid accumulation: no edema per MD note Functional Status: unable to evaluate Nutrition Prescription (Diet Order): GI soft Estimated Nutritional Needs: 0205-3902 calories/day (25-35 kcal/kg CBW) 61-92 g protein/day (1-1.5 g pro/kg CBW) Diet Adequacy: Not meeting calorie needs, Not meeting protein needs Tolerance: Pt reports still reports N/V. Diet Education Needs Assessment: Pt declined need for diet education materials on 08/31 Nutrition Care Level: moderate Nutrition Diagnosis: Severe malnutrition related to medical status as evidenced by pt meeting < 50% of estimated energy needs for > 5 days and >10% weight loss in 6 months. Goal: Patient will meet 75-100% of estimated needs by follow up Progress: not progressing - pt still reports eating <50% of meals Interventions: -low-fiber diet, Commercial beverage Monitoring/Evaluation: -Total energy intake, Total protein intake, Modified diet, Liquid supplement, Weight change Signed: Ria Martinez RD, LD
--- NOTE | 2019-09-06 19:15 | NUR ---
patient received awake, alert, lying quietly in bed. abd distended, firm with trochar sites c,d,i. pm assessment complete. patient requesting pain medication but pain medication not due at this time. call placed to Dr. Forbes re: pain medication. no new orders noted. tylenol to be given between pain medication but patient refuses the tylenol. patient very upset and request to house wrecker. Shanae Lambert RN notified.
[2019-09-06] MEDS: ATORVASTATIN 40 MG TAB PO SCH (21:00)
[2019-09-06] MEDS: ZOLPIDEM TARTRATE 5 MG TAB PO PRN (21:30)
[2019-09-07] VITALS (9 sets, daily range): BP systolic 94–113; BP diastolic 63–89
[2019-09-07] MEDS: OXYCODONE HCL IR 5 MG TAB PO PRN ×4 (03:35→21:33)
--- NOTE | 2019-09-07 06:30 | NUR ---
no bm noted throughout the night. dr. field here to see patient and made aware of this at this time.
--- NOTE | 2019-09-07 06:36 | NUR ---
abd 2 view ordered. patient refuses to go to radiology at this time. patient states, " I will go later. "
[2019-09-07] MEDS: FAMOTIDINE 20 MG TAB PO SCH ×2 (07:30→16:30)
[2019-09-07] MEDS: ASPIRIN 81 MG ENTERIC COATED PO SCH (08:01)
[2019-09-07] MEDS: METOPROLOL SUCCINATE 25 MG TAB XL PO SCH (08:01)
[2019-09-07] MEDS: AMLODIPINE BESYLATE 10 MG TAB PO SCH (08:02)
[2019-09-07] MEDS ORDERED: TRAMADOL HCL 50 MG TAB PO PRN (09:00)
[2019-09-07] MEDS: ALPRAZOLAM 0.5 MG TAB PO PRN ×2 (09:19→16:52)
--- NOTE | 2019-09-07 10:10 | NUR ---
Follow-up visit. MARIVEL Maguirelain Spiritual Care Department O: [phone]
--- NOTE | 2019-09-07 11:13 | Diagnostic Imaging Report ---
EXAM: ABDOMEN 2 VIEW DATE: 09/07/2019 10:40 AM INDICATION: Constipation COMPARISON: CT abdomen/pelvis from 09/02/2019 FINDINGS/IMPRESSION: Bowel gas pattern appears nonspecific but nonobstructive. Moderate to large volume of colonic stool burden noted which may reflect constipation. No abnormal intra-abdominal calcification is appreciated. Cholecystectomy clips noted within the right upper quadrant. Additional surgical clips noted projecting over the right lower quadrant. Multiple overlying skin shruthi noted, recommend correlation with operative report. There are postsurgical changes from instrumented lumbar fusion from L3 through S1. No acute osseous abnormality is identified. Signed by: Dr. Luis E Lerma MD on 09/07/2019 11:09 AM
[2019-09-07] MEDS: ONDANSETRON HCL 4 MG ORAL DISINTEGRATING TAB PO PRN (11:26)
[2019-09-07] MEDS: PROMETHAZINE 12.5MG/ NACL 0.9% 12.5 MG/50 ML BAG IV PRN (14:56)
--- NOTE | 2019-09-07 18:03 | NUR ---
Patient recieved the soap suds enema with no results after 2 hours. Will continue to monitor for results. If no results by 4 hours will contact doctor again.
--- NOTE | 2019-09-07 19:20 | NUR ---
Receive patient awake, not in distress, still no BM yet. Advised to call for assistance anytime. Will continue to monitor
[2019-09-07] MEDS: DOCUSATE SODIUM 100 MG CAP PO PRN (20:57)
[2019-09-07] MEDS: ATORVASTATIN 40 MG TAB PO SCH (20:58)
[2019-09-07] MEDS: ZOLPIDEM TARTRATE 5 MG TAB PO PRN (20:58)
[2019-09-08] VITALS (8 sets, daily range): BP systolic 86–119; BP diastolic 67–91
[2019-09-08] MEDS: ONDANSETRON HCL 4 MG ORAL DISINTEGRATING TAB PO PRN (04:20)
[2019-09-08] MEDS: OXYCODONE HCL IR 5 MG TAB PO PRN ×4 (04:32→20:50)
[2019-09-08] MEDS ORDERED: CITRATE OF MAGNESIA 300ML BOTTLE PO ONE (06:50)
[2019-09-08] MEDS ORDERED: MINERAL OIL 132 ML BTL PR ONE (06:55)
--- NOTE | 2019-09-08 07:22 | NUR ---
IM- progress note O/N see below ROS: unreliable v/s revd PE tired appearing anicteric ns1s2 mod bs soft nt nd; left groin dressing in place; site soft; nontender no edema skin dry flat affect labs/meds revd A/P: 58yoF Chest pain- plavix loading; f/u echo; LHC no intervention; medical mgmt; CAD with hx stents and CABG- f/u echo Hypertensive heart ds- cont BB HLD_ statin Hypothyroidism- TSH high; Noncompliance? restart med; check TFTs Anxiety d/o- use BZD Insomnia- temazepam Prop: ppi dispo: Abdominal wall hernia- tender- get CT; check labs; d/c planning; 5-31 CHronically incarcerated hernia- sx planned; 6-1 awaiting surgery for hernia 6-2 doing better; cont care; f/u labs; 6-3 check labs; d/c planning; 6-4 awaiting BM 6-5 cont bowel regimen; f/u surgery Julien Forbes MD, PhD.
--- NOTE | 2019-09-08 07:22 | NUR ---
IM- progress note O/N see below ROS: unreliable v/s revd PE tired appearing anicteric ns1s2 mod bs soft nt nd; left groin dressing in place; site soft; nontender no edema skin dry flat affect labs/meds revd A/P: 58yoF Chest pain- plavix loading; f/u echo; LHC no intervention; medical mgmt; CAD with hx stents and CABG- f/u echo Hypertensive heart ds- cont BB HLD_ statin Hypothyroidism- TSH high; Noncompliance? restart med; check TFTs Anxiety d/o- use BZD Insomnia- temazepam Prop: ppi dispo: Abdominal wall hernia- tender- get CT; check labs; d/c planning; 09-02 CHronically incarcerated hernia- sx planned; 6-1 awaiting surgery for hernia 6-2 doing better; cont care; f/u labs; 6-3 check labs; d/c planning; 6-4 awaiting BM Julien Forbes MD, PhD.
[2019-09-08] MEDS: FAMOTIDINE 20 MG TAB PO SCH ×2 (07:26→15:46)
[2019-09-08] MEDS: PROMETHAZINE 12.5MG/ NACL 0.9% 12.5 MG/50 ML BAG IV PRN (07:26)
[2019-09-08] MEDS: DOCUSATE SODIUM 100 MG CAP PO PRN (08:47)
[2019-09-08] MEDS: ASPIRIN 81 MG ENTERIC COATED PO SCH (08:47)
[2019-09-08] MEDS: AMLODIPINE BESYLATE 10 MG TAB PO SCH (08:47)
[2019-09-08] MEDS: METOPROLOL SUCCINATE 25 MG TAB XL PO SCH (08:47)
[2019-09-08 09:49] LABS: ANION GAP 14.4 mmol/L (8-16); CALCIUM 9.6 mg/dL (8.4-10.2); CREATININE, SERUM 1.12 mg/dL (0.57-1.11); POTASSIUM 4.4 mmol/L (3.5-5.1)
[2019-09-08] MEDS ORDERED: ALPRAZOLAM 0.5 MG TAB PO SCH (10:35)
[2019-09-08] MEDS: ALPRAZOLAM 0.5 MG TAB PO PRN ×2 (10:55→19:53)
--- NOTE | 2019-09-08 18:43 | NUR ---
Contacted Dr. Forbes for new orders to . NO return call at this time.
[2019-09-08] MEDS: ATORVASTATIN 40 MG TAB PO SCH (19:53)
--- NOTE | 2019-09-08 21:50 | NUR ---
Received nursing shift report from charge nurse. Pt alert and oriented. Call light within reach.
[2019-09-08] MEDS: ZOLPIDEM TARTRATE 5 MG TAB PO PRN (23:26)
[2019-09-09] VITALS (11 sets, daily range): BP systolic 101–120; BP diastolic 64–91
[2019-09-09] MEDS: OXYCODONE HCL IR 5 MG TAB PO PRN ×4 (04:10→22:34)
--- NOTE | 2019-09-09 06:26 | NUR ---
IM- progress note O/N see below ROS: unreliable v/s revd PE tired appearing anicteric ns1s2 mod bs soft nt nd; left groin dressing in place; site soft; nontender no edema skin dry flat affect labs/meds revd A/P: 58yoF Chest pain- plavix loading; f/u echo; LHC no intervention; medical mgmt; CAD with hx stents and CABG- f/u echo Hypertensive heart ds- cont BB HLD_ statin Hypothyroidism- TSH high; Noncompliance? restart med; check TFTs Anxiety d/o- use BZD Insomnia- temazepam Prop: ppi dispo: Abdominal wall hernia- tender- get CT; check labs; d/c planning; - CHronically incarcerated hernia- sx planned; 6-1 awaiting surgery for hernia 6-2 doing better; cont care; f/u labs; 6-3 check labs; d/c planning; 6-4 awaiting BM 6-5 cont bowel regimen; f/u surgery 6-6 f/u KUB; cont bowel reg Julien Forbes MD, PhD.
--- NOTE | 2019-09-09 07:01 | NUR ---
received change of shift report from retail shift manager RN. pt awake, alert , in stable condition. will continue to monitor.
[2019-09-09] MEDS: PROMETHAZINE 12.5MG/ NACL 0.9% 12.5 MG/50 ML BAG IV PRN (07:11)
[2019-09-09] MEDS ORDERED: SODIUM CHLORIDE 0.9% 250ML 250 ML ONE (07:14)
[2019-09-09] MEDS: FAMOTIDINE 20 MG TAB PO SCH ×2 (07:30→16:30)
[2019-09-09] MEDS ORDERED: AMLODIPINE BESYLATE 10 MG TAB PO SCH (09:00)
[2019-09-09] MEDS: AMLODIPINE BESYLATE 5 MG TAB PO SCH (09:00)
[2019-09-09] MEDS: ASPIRIN 81 MG ENTERIC COATED PO SCH (09:02)
[2019-09-09] MEDS: ALPRAZOLAM 0.5 MG TAB PO PRN ×2 (09:02→17:59)
[2019-09-09] MEDS: METOPROLOL SUCCINATE 25 MG TAB XL PO SCH (09:03)
--- NOTE | 2019-09-09 10:59 | NUR ---
pt ambulating in the hallway, no complaints at this time. no signs of distress, however abdominal distention noted. Ketan Jackson, DIRECTOR OF ARCHIVES at bedside. states he is concerned pt has ileus but will wait for Surgery to evaluate the pt. will continue to monitor.
--- NOTE | 2019-09-09 14:49 | Diagnostic Imaging Report ---
EXAM: ABDOMEN-1VIEW (KUB) DATE: 09/09/2019 2:22 PM INDICATION: Abdominal distention. COMPARISON: CT abdomen/pelvis from 09/02/2019. KUB 09-07-2019. FINDINGS/IMPRESSION: Nonobstructive bowel gas pattern. No evidence of pneumoperitoneum. Abundant stool throughout the colon and rectum which may represent constipation. No evidence of nephrolithiasis. Surgical clips overlie the right upper and lower quadrants. Multiple overlying shruthi are again noted. There are postsurgical changes from instrumented lumbar fusion from L3 through S1. No evidence of acute osseous abnormality. Signed by: Dr. Makenzie Freeman MD on 09/09/2019 2:46 PM
[2019-09-09] MEDS: ONDANSETRON HCL 4 MG ORAL DISINTEGRATING TAB PO PRN (17:13)
[2019-09-09] MEDS: LACTULOSE SYRUP 20 GM/30 ML UDC PO PRN (17:13)
[2019-09-09] MEDS: DOCUSATE SODIUM 100 MG CAP PO PRN (22:33)
[2019-09-09] MEDS: ATORVASTATIN 40 MG TAB PO SCH (22:33)
[2019-09-09] MEDS: ZOLPIDEM TARTRATE 5 MG TAB PO PRN (22:33)
[2019-09-10] VITALS (7 sets, daily range): BP systolic 104–122; BP diastolic 75–97
--- NOTE | 2019-09-10 04:35 | NUR ---
IM- progress note O/N see below ROS: unreliable v/s revd PE tired appearing anicteric ns1s2 mod bs soft nt nd; left groin dressing in place; site soft; nontender no edema skin dry flat affect labs/meds revd A/P: 58yoF Chest pain- plavix loading; f/u echo; LHC no intervention; medical mgmt; CAD with hx stents and CABG- f/u echo Hypertensive heart ds- cont BB HLD_ statin Hypothyroidism- TSH high; Noncompliance? restart med; check TFTs Anxiety d/o- use BZD Insomnia- temazepam Prop: ppi dispo: Abdominal wall hernia- tender- get CT; check labs; d/c planning; 5-31 CHronically incarcerated hernia- sx planned; 6-1 awaiting surgery for hernia 6-2 doing better; cont care; f/u labs; 6-3 check labs; d/c planning; 6-4 awaiting BM 6-5 cont bowel regimen; f/u surgery 6-6 f/u KUB; cont bowel reg 6-7 check renal fn Julien Forbes MD, PhD.
[2019-09-10] MEDS: OXYCODONE HCL IR 5 MG TAB PO PRN ×4 (04:45→22:35)
[2019-09-10] MEDS: LEVOTHYROXINE SODIUM 75 MCG TAB PO SCH (04:45)
[2019-09-10] MEDS: PROMETHAZINE 12.5MG/ NACL 0.9% 12.5 MG/50 ML BAG IV PRN ×2 (05:10→13:10)
[2019-09-10 06:39] LABS: ANION GAP 12.3 mmol/L (8-16); BLOOD UREA NITROGEN 30 mg/dL (7-26); BUN/CREATININE RATIO 34 (6-25); CALCIUM 9.5 mg/dL (8.4-10.2); CARBON DIOXIDE 22 mmol/L (22-29); CHLORIDE 108 mmol/L (98-107); CREATININE, SERUM 0.87 mg/dL (0.57-1.11); EST GLOMERULAR FILTRATION RATE > 60 ML/MIN (60-); GLUCOSE 90 mg/dL (74-118); POTASSIUM 4.3 mmol/L (3.5-5.1); SODIUM 138 mmol/L (136-145)
[2019-09-10] MEDS: FAMOTIDINE 20 MG TAB PO SCH ×2 (07:30→16:30)
[2019-09-10] MEDS: AMLODIPINE BESYLATE 5 MG TAB PO SCH (09:00)
[2019-09-10] MEDS: METOPROLOL SUCCINATE 25 MG TAB XL PO SCH (10:25)
[2019-09-10] MEDS: ASPIRIN 81 MG ENTERIC COATED PO SCH (10:25)
[2019-09-10] MEDS: ALPRAZOLAM 0.5 MG TAB PO PRN ×2 (10:26→17:14)
[2019-09-10] MEDS ORDERED: MORPHINE SULFATE INJ 4 MG/ML INJ 1ML IV ONE (15:00)
[2019-09-10] MEDS: ONDANSETRON HCL 4 MG ORAL DISINTEGRATING TAB PO PRN (17:19)
--- NOTE | 2019-09-10 19:03 | NUR ---
change of shift report given to PM nurse. pt in stable condition.
--- NOTE | 2019-09-10 19:19 | NUR ---
Patient received lying in bed. AAO x 3. Patient had no complaints of pain. Respirations even and non-labored. Safety measures in place. Patient instructed to call for assistance when needed. Call light within reach.
[2019-09-10] MEDS: LACTULOSE SYRUP 20 GM/30 ML UDC PO PRN (21:11)
[2019-09-10] MEDS: ATORVASTATIN 40 MG TAB PO SCH (21:11)
[2019-09-10] MEDS: ZOLPIDEM TARTRATE 5 MG TAB PO PRN (21:30)
[2019-09-11] VITALS (8 sets, daily range): BP systolic 97–119; BP diastolic 63–83
[2019-09-11] MEDS: OXYCODONE HCL IR 5 MG TAB PO PRN ×4 (04:31→21:43)
[2019-09-11] MEDS: LEVOTHYROXINE SODIUM 75 MCG TAB PO SCH (05:34)
--- NOTE | 2019-09-11 07:00 | NUR ---
Walking rounds done. Patient resting comfortably. Shift report given to oncoming nurse regarding patient status.
--- NOTE | 2019-09-11 07:10 | NUR ---
PATIENT SAID SHE DONT HAVE ANY BOWEL MOVEMENT FOR LAST 13 DAYS
--- NOTE | 2019-09-11 07:10 | NUR ---
RCD PT AT BED PT IS ALERT AND ORIENTED PT RESTING ON BED IV PATENT BY SALINE ITS ON RIGHT LEG FLUSH BED LOW AND LOCKED CALL LIGHT IN REACH
--- NOTE | 2019-09-11 07:18 | Diagnostic Imaging Report ---
Abdomen/KUB INDICATION: ^DISTENTION OF ABDOMEN COMPARISON: Abdomen x-ray 09/09/2019. FINDINGS: Portable, supine image obtained at 0615 hours. Medical Devices: Fusion hardware in the lumbar spine is intact. Cholecystectomy clips and surgical clips in the left hemiabdomen and right lower quadrant are stable. Bowel: Unremarkable bowel gas pattern. Large stool burden throughout the colon. The amount of stool in the right colon is diminishing. No dilated small bowel loops are pneumatosis. Free air: None Abdominal calcifications: None over the renal shadows or along the expected course of the ureters. Organomegaly: None Bones: Stable postoperative changes from laminectomy from L3 to S1. IMPRESSION: Large stool burden, with diminishing amount of stool in the right colon. No evidence of bowel obstruction. Signed by: Dr. Jessica Nunez MD on 09/11/2019 7:14 AM
[2019-09-11] MEDS: FAMOTIDINE 20 MG TAB PO SCH ×2 (07:30→16:07)
[2019-09-11] MEDS: ALPRAZOLAM 0.5 MG TAB PO PRN ×2 (08:00→17:42)
[2019-09-11] MEDS ORDERED: MINERAL OIL 132 ML BTL PR SCH (09:00)
[2019-09-11] MEDS: ASPIRIN 81 MG ENTERIC COATED PO SCH (09:00)
[2019-09-11] MEDS: AMLODIPINE BESYLATE 5 MG TAB PO SCH (09:00)
[2019-09-11] MEDS: METOPROLOL SUCCINATE 25 MG TAB XL PO SCH (09:00)
[2019-09-11] MEDS: PROMETHAZINE 12.5MG/ NACL 0.9% 12.5 MG/50 ML BAG IV PRN (09:06)
--- NOTE | 2019-09-11 09:17 | NUR ---
IM- progress note O/N see below ROS: unreliable v/s revd PE tired appearing anicteric ns1s2 mod bs soft nt nd; left groin dressing in place; site soft; nontender no edema skin dry flat affect labs/meds revd A/P: 58yoF Chest pain- plavix loading; f/u echo; LHC no intervention; medical mgmt; CAD with hx stents and CABG- f/u echo Hypertensive heart ds- cont BB HLD_ statin Hypothyroidism- TSH high; Noncompliance? restart med; check TFTs Anxiety d/o- use BZD Insomnia- temazepam Prop: ppi dispo: Abdominal wall hernia- tender- get CT; check labs; d/c planning; -31 CHronically incarcerated hernia- sx planned; 6-1 awaiting surgery for hernia 6-2 doing better; cont care; f/u labs; 6-3 check labs; d/c planning; 6-4 awaiting BM 6-5 cont bowel regimen; f/u surgery 6-6 f/u KUB; cont bowel reg 6-7 check renal fn 6-8 renal improving; await BM Julien Forbes MD, PhD.
--- NOTE | 2019-09-11 09:25 | NUR ---
AC TO DR HEART PT HERE CLARE FOR SURGICAL PROBLEM
--- NOTE | 2019-09-11 09:25 | NUR ---
PTS IV LINE ON THE RT LEG NOTIFIED DR HEART HE SAID DC FROM LEG AND START THE IV ON HAND ,GOT THE ORDER MID LINE PLACEMENT PRN, HE CHANGED THE PHENERGAN IN TO BY MOUTH
[2019-09-11] MEDS ORDERED: PROMETHAZINE HCL (IM) 25 MG/ML VIAL IM PRN (09:30)
[2019-09-11] MEDS: DOCUSATE SODIUM 100 MG CAP PO PRN (14:00)
--- NOTE | 2019-09-11 14:00 | NUR ---
COLACE AND PRUNE JUICE GIVEN
--- NOTE | 2019-09-11 18:00 | NUR ---
Nutrition Intervention Note RD Recommendation(s) for Physician: -Continue current diet as ordered -Increase Ensure Enlive TID for adequacy The patient meets criteria for unspecified SEVERE protein-calorie malnutrition. Plan of Care: RD following, monitoring for tolerance and adequacy Nutrition reason for involvement: follow up RD Assessment 09/10: Follow up. Pt eating dinner at time of visit, reports tolerating well and eating 50% of meals. Pt reports drinking Ensure BID, receptive to increasing to TID- RD to order. Pt continues with no BM, she reports MD aware. Noted abdominal rounded and distended. All questions and concerns addressed at time of visit. Chart reviewed. Will continue to monitor. 09/05: Follow up. Pt had a procedure regarding lysis of adhesion and repair of incarcerated ventral hernia on 09/03. Pt stated she is still eating <50% of her meals. Pt is awaiting to have a BM per RN. Pt reports some nausea and stated she had vomited yesterday. Pt is drinking Ensure nutrition supplements. Will continue to monitor. (09/01/19) Pt is a 58 year old female admitted with chest pain. Pt stated she is having N/V and unable to tolerate her meals today. Pt reports eating < 50% of meals for the past couple of weeks. Pt also reported she had unintentionally lost weight and used to weigh 159 lbs 6 months ago. Pt currently has a weight of 135 lbs in chart. This would be a 15% weight loss in 6 months which is considered significant weight loss. Pt was interested in a nutrition supplement. Recommend Ensure Enlive BID for added nutrition. Will continue to monitor. Principal Problems/Diagnoses: chest pain PMH: CAD, status post CABG, hyperlipidemia, repeated pancreatitis, chronic back pain and anxiety GI: pt is awaiting to have a BM, abd distended and round Skin: intact Labs: 09/09: Na 138, K 4.3, BUN 30, Cr 0.87, Gluc 90, Ca 9.5 09/05: Na 137, K 4.8, BUN 21, Cr 1.32, Ca 9.6 (08/31) Na 141, K 3,1, BUN 13, Cr 0.99, Glu 79, Ca 8.5 Meds: oxycodone, colace, synthroid, lactulose, lipitor, zofran, pepcid, phenergan Ht: 63 inches Wt: 135 lbs BMI: 23.9 kg/m2 IBW: 115 lbs Malnutrition Evaluation (09/01/19) The patient meets criteria for unspecified SEVERE protein-calorie malnutrition. Energy intake: <50% of estimated energy requirements for >5 days Weight loss: >10% in 6 months (Chronic) Fat loss: no loss identified Muscle loss: no loss identified Supporting Evidence: Fluid accumulation: no edema per MD note Functional Status: unable to evaluate Nutrition Prescription (Diet Order): GI soft Estimated Nutritional Needs: 0054-5880 calories/day (25-35 kcal/kg CBW) 61-92 g protein/day (1-1.5 g pro/kg CBW) Diet Adequacy: Not meeting calorie needs, Not meeting protein needs- intake improving Tolerance: tolerating po Diet Education Needs Assessment: Pt declined need for diet education materials on 08/31 Nutrition Care Level: moderate Nutrition Diagnosis: Severe malnutrition related to medical status as evidenced by pt meeting < 50% of estimated energy needs for > 5 days and >10% weight loss in 6 months. Goal: Patient will meet 75-100% of estimated needs by follow up Progress: progressing- meal intake improving and good supplement intake Interventions: -low-fiber diet, Commercial beverage Monitoring/Evaluation: -Total energy intake, Total protein intake, Modified diet, Liquid supplement, Weight change Signed: Lisbeth Erwin RD, TRE, [facility]
--- NOTE | 2019-09-11 18:07 | NUR ---
AC TO PT DR FAUSTIN SAID SHE MAY NEED GI CONSULT PAGED AND TALKED DR FAUSTIN HE SAID GASTRO GRAFFIN ENEMA THATS ON TOMORROW NOTIFIED DR FAUSTIN AFTER FLEET ENEMA THERE IS NO BOWEL MOVEMENT
--- NOTE | 2019-09-11 18:55 | NUR ---
PT RESTING ON BED BED SIDE REPORT GIVEN TO ONCOMING NURSE
--- NOTE | 2019-09-11 19:15 | NUR ---
Patient received lyin in bed. No acute distress noted. Safety measures implemented. Call light within reach.
[2019-09-11] MEDS: ATORVASTATIN 40 MG TAB PO SCH (20:32)
[2019-09-11] MEDS: MINERAL OIL 132 ML BTL PR SCH (20:34)
--- NOTE | 2019-09-11 20:35 | NUR ---
Patient refused administration of Fleet Enema stating previous administration of enema earlier in the day was very painful.
[2019-09-11] MEDS: ZOLPIDEM TARTRATE 5 MG TAB PO PRN (20:44)
[2019-09-12] VITALS (8 sets, daily range): BP systolic 108–139; BP diastolic 72–93
[2019-09-12] MEDS: LACTULOSE SYRUP 20 GM/30 ML UDC PO PRN (01:21)
[2019-09-12] MEDS: OXYCODONE HCL IR 5 MG TAB PO PRN ×4 (02:46→19:56)
[2019-09-12] MEDS: ONDANSETRON HCL 4 MG ORAL DISINTEGRATING TAB PO PRN ×2 (05:46→14:30)
[2019-09-12] MEDS: LEVOTHYROXINE SODIUM 75 MCG TAB PO SCH (05:47)
--- NOTE | 2019-09-12 07:00 | NUR ---
Shift report given to oncoming nurse.
[2019-09-12] MEDS: FAMOTIDINE 20 MG TAB PO SCH ×2 (07:30→16:30)
--- NOTE | 2019-09-12 07:34 | NUR ---
PATIENT SITTING UP IN BED TALKING ON THE PHONE, NO DISTRESS NOTED. 4 TROCAR SITES TO ABDOMEN WITH BAN AID INTACT. BED IN LOWER POSITION, CALL LIGHT AT REACH.
[2019-09-12] MEDS: ALPRAZOLAM 0.5 MG TAB PO PRN ×2 (08:40→17:15)
[2019-09-12] MEDS: MINERAL OIL 132 ML BTL PR SCH ×2 (09:00→21:00)
[2019-09-12] MEDS: AMLODIPINE BESYLATE 5 MG TAB PO SCH (09:00)
[2019-09-12] MEDS: METOPROLOL SUCCINATE 25 MG TAB XL PO SCH (09:20)
[2019-09-12] MEDS: ASPIRIN 81 MG ENTERIC COATED PO SCH (09:20)
--- NOTE | 2019-09-12 10:08 | NUR ---
IM- progress note O/N see below ROS: unreliable v/s revd PE tired appearing anicteric ns1s2 mod bs soft nt nd; left groin dressing in place; site soft; nontender no edema skin dry flat affect labs/meds revd A/P: 58yoF Chest pain- plavix loading; f/u echo; LHC no intervention; medical mgmt; CAD with hx stents and CABG- f/u echo Hypertensive heart ds- cont BB HLD_ statin Hypothyroidism- TSH high; Noncompliance? restart med; check TFTs Anxiety d/o- use BZD Insomnia- temazepam Prop: ppi dispo: Abdominal wall hernia- tender- get CT; check labs; d/c planning; 09-02 CHronically incarcerated hernia- sx planned; 6- awaiting surgery for hernia 6-2 doing better; cont care; f/u labs; 6-3 check labs; d/c planning; 6-4 awaiting BM 6-5 cont bowel regimen; f/u surgery 6-6 f/u KUB; cont bowel reg 6-7 check renal fn 6-8 renal improving; await BM 6-9 d/w ; NPO at midnight, planned for sedation and colonic cleanout tomorrow for severe constipation Julein Forbes MD, PhD.
--- NOTE | 2019-09-12 11:13 | NUR ---
PATIENT AMBULATING IN HALLWAY, NO COMPLAIN VOICED. WILL CONTINUE TO MONITOR.
--- NOTE | 2019-09-12 13:35 | NUR ---
CALL RECEIVED FROM RADIOLOGY STATING THAT THE PATIENT'S GASTROGRAFFIN ENEMA CANNOT BE BE DONE BECAUSE THE MACHINE IS DOWN. DR FAUSTIN PAGED, AWAITING CALL BACK.
--- NOTE | 2019-09-12 13:45 | NUR ---
CALL BACK RECEIVED FROM DR FAUSTIN, NOTIFIED OF INABILITY TO PROVIDE THE PATIENT WITH THE GASTRO GRAFFIN ENEMA. NEW ORDER RECEIVED FOR SOAP ENEMA.
--- NOTE | 2019-09-12 14:43 | NUR ---
SOAP ENEMA OFFERED X2, BUT PATIENT REFUSED. DR HEART AT BEDSIDE AT THIS TIME. NEW ORDERS RECEIVED.
[2019-09-12] MEDS: ZOLPIDEM TARTRATE 5 MG TAB PO PRN (22:38)
[2019-09-12] MEDS: ATORVASTATIN 40 MG TAB PO SCH (22:51)
[2019-09-13] VITALS (7 sets, daily range): BP systolic 125–131; BP diastolic 81–94
[2019-09-13] MEDS: OXYCODONE HCL IR 5 MG TAB PO PRN ×3 (01:04→17:47)
--- NOTE | 2019-09-13 05:40 | NUR ---
IM- progress note O/N see below ROS: unreliable v/s revd PE tired appearing anicteric ns1s2 mod bs soft nt nd; left groin dressing in place; site soft; nontender no edema skin dry flat affect labs/meds revd A/P: 58yoF Chest pain- plavix loading; f/u echo; LHC no intervention; medical mgmt; CAD with hx stents and CABG- f/u echo Hypertensive heart ds- cont BB HLD_ statin Hypothyroidism- TSH high; Noncompliance? restart med; check TFTs Anxiety d/o- use BZD Insomnia- temazepam Prop: ppi dispo: Abdominal wall hernia- tender- get CT; check labs; d/c planning; 09-02 CHronically incarcerated hernia- sx planned; 6-1 awaiting surgery for hernia 6-2 doing better; cont care; f/u labs; 6-3 check labs; d/c planning; 6-4 awaiting BM 6-5 cont bowel regimen; f/u surgery 6-6 f/u KUB; cont bowel reg 6-7 check renal fn 6-8 renal improving; await BM 6-9 d/w ; NPO at midnight, planned for sedation and colonic cleanout tomorrow for severe constipation 6-10 check labs; surgery pending; Julien Forbes MD, PhD.
[2019-09-13] MEDS ORDERED: LEVOTHYROXINE SODIUM 75 MCG TAB PO SCH (06:00)
[2019-09-13] MEDS: LEVOTHYROXINE SODIUM 100 MCG TAB PO SCH (06:13)
--- NOTE | 2019-09-13 07:00 | NUR ---
Walking rounds done. Patient resting comfortably. Shift report given to oncoming nurse regarding patient's status.
[2019-09-13] MEDS: FAMOTIDINE 20 MG TAB PO SCH ×2 (07:30→16:30)
[2019-09-13 07:48] LABS: BASOPHILS # (AUTO) 0.1 (0.0-0.1); BASOPHILS % 2.4 % (0.0-1.0); EOSINOPHILS # (AUTO) 0.2 (0.0-0.4); EOSINOPHILS % 4.8 % (0.0-6.0); HEMATOCRIT 38.6 % (34.2-44.1); HEMOGLOBIN 12.7 g/dL (12.0-16.0); LYMPHOCYTES # (AUTO) 2.1 (1.0-3.2); LYMPHOCYTES % 40.8 % (18.0-39.1); MEAN CORPUSCULAR HEMOGLOBIN 31.8 pg (28-32); MEAN CORPUSCULAR HGB CONC 32.9 g/dL (31-35); MEAN CORPUSCULAR VOLUME 96.5 fL (81-99); MONOCYTES # (AUTO) 0.5 (0.2-0.8); MONOCYTES % 10.5 % (4.4-11.3); NEUTROPHILS # (AUTO) 2.1 (2.1-6.9); NEUTROPHILS % 41.3 % (38.7-80.0); PLATELET COUNT 248 x10e3/uL (140-360); RED CELL DISTRIBUTION WIDTH 13.8 % (11.7-14.4)
[2019-09-13 08:23] LABS: ANION GAP 14.2 mmol/L (8-16); BLOOD UREA NITROGEN 23 mg/dL (7-26); BUN/CREATININE RATIO 29 (6-25); CALCIUM 9.5 mg/dL (8.4-10.2); CARBON DIOXIDE 21 mmol/L (22-29); CHLORIDE 107 mmol/L (98-107); CREATININE, SERUM 0.79 mg/dL (0.57-1.11); EST GLOMERULAR FILTRATION RATE > 60 ML/MIN (60-); GLUCOSE 81 mg/dL (74-118); POTASSIUM 4.2 mmol/L (3.5-5.1); SODIUM 138 mmol/L (136-145)
[2019-09-13] MEDS: ASPIRIN 81 MG ENTERIC COATED PO SCH (08:37)
[2019-09-13] MEDS: AMLODIPINE BESYLATE 5 MG TAB PO SCH (08:38)
[2019-09-13] MEDS: METOPROLOL SUCCINATE 25 MG TAB XL PO SCH (08:38)
[2019-09-13] MEDS: ALPRAZOLAM 0.5 MG TAB PO PRN ×2 (08:39→21:55)
[2019-09-13 08:44] LABS: PHOSPHORUS 4.4 MG/DL (2.3-4.7)
--- NOTE | 2019-09-13 12:00 | NUR ---
SPIRITUAL CARE - Pre-Surgery Assessment: Pt anxious concerning procedure. Pt's at bedside. Intervention: Sales Development Coordinator provided pastoral presence, empathetic listening, and prayer. Outcome: Pt & expressed appreciation for visit. Will continue to follow as able. MARIVEL Maguirelain Spiritual Care Department O: [phone]
[2019-09-13] MEDS ORDERED: LIDOCAINE HCL 2% LOCAL INJ 5 ML SDV VIAL INJ ONE (14:08)
[2019-09-13] MEDS ORDERED: ONDANSETRON HCL INJ 2MG/ML 2ML 2 MG/ML VIAL ONE (14:08)
[2019-09-13] MEDS ORDERED: ROCURONIUM BROMIDE 10 MG/ML 5ML VIAL IV ONE (14:08)
[2019-09-13] MEDS ORDERED: ETOMIDATE 2 MG/ML 10 ML INJ IV ONE (14:08)
[2019-09-13] MEDS ORDERED: DESFLURANE 240 ML BTL INH ONE (14:08)
[2019-09-13] MEDS ORDERED: DEXAMETHASONE SOD PHOS INJ 4 MG/ML VIAL ONE (14:08)
[2019-09-13] MEDS ORDERED: SUCCINYLCHOLINE CHLORIDE 20 MG/ML 10ML VIAL ONE (14:08)
[2019-09-13] MEDS ORDERED: FENTANYL CITRATE/PF 100MCG/2 ML INJ ONE ×2 (14:59→16:16)
[2019-09-13] MEDS ORDERED: MIDAZOLAM HCL 2 MG/2 ML VIAL ONE (14:59)
[2019-09-13] MEDS ORDERED: KETAMINE HCL INJ 50 MG/ML 10 ML VIAL ONE (15:01)
[2019-09-13] MEDS ORDERED: MIDAZOLAM HCL 5 MG/ML VIAL ONE (15:01)
--- NOTE | 2019-09-13 15:28 | Diagnostic Imaging Report ---
TECHNIQUE: Frontal view of the chest. INDICATION: 58-year-old woman after PICC placement. COMPARISON: None. FINDINGS: LINES/TUBES: Right upper extremity PICC terminates over the expected region of the low superior vena cava. LUNGS: The lungs are well inflated. No consolidation or pulmonary edema. PLEURA: No pneumothorax or significant pleural effusion. HEART AND MEDIASTINUM: The cardiomediastinal silhouette is within normal limits. Tortuous thoracic aorta. SOFT TISSUES AND BONES: Intact median sternotomy wires. Soft tissues are unremarkable. IMPRESSION: Lines/tubes as above. No acute cardiopulmonary abnormalities. Signed by: Trevor Holland MD on 09/13/2019 3:25 PM
[2019-09-13] MEDS ORDERED: PROMETHAZINE HCL (IM) 25 MG/ML VIAL ONE (16:08)
--- NOTE | 2019-09-13 19:30 | NUR ---
Patient received lying in bed. AAO x 3. Patient complained of headache (4/10). No signs of respiratory distress. Fall precautions implemented. Call light within reach.
[2019-09-13] MEDS: ATORVASTATIN 40 MG TAB PO SCH (20:45)
--- NOTE | 2019-09-13 21:30 | NUR ---
Patient complained of headache s/p removal of fecal impaction. Dr. Forbes notified. New order received for Fioricet 1 tab Q8H PRN.
--- NOTE | 2019-09-13 21:44 | NUR ---
Received report from nurse.
--- NOTE | 2019-09-13 21:45 | NUR ---
Report given to Chandler Panchal (TAD) regarding patient' status for continuity of care.
[2019-09-13] MEDS: ACETAMIN/BUTALBITAL/CAFFEINE TAB PO PRN (21:54)
[2019-09-13] MEDS: ONDANSETRON HCL 4 MG ORAL DISINTEGRATING TAB PO PRN (21:55)
--- NOTE | 2019-09-13 22:10 | Operative Report ---
DATE OF PROCEDURE: 09/13/2019 SURGEON: Ketan Fan MD PREOPERATIVE DIAGNOSIS: Fecal impaction. POSTOPERATIVE DIAGNOSIS: Fecal impaction. PROCEDURES: Exam under anesthesia, removal of fecal impaction, rigid proctoscopy. MATCH MAKER: None. ANESTHESIA: General. INDICATIONS AND FINDINGS: The patient is a 58-year-old female, who has been in the hospital for 2 weeks, not had a bowel movement, in spite of enemas and laxatives, she has not had a bowel movement. At Surgery, the patient had a large amount of stool impacted in the rectum, this was removed manually all the way up to the rectosigmoid junction. Rigid proctoscopy done up to just above the rectosigmoid junction, revealed no residual stool area. Otherwise, there was no abnormality on exam or proctoscopy. TECHNIQUE: After adequate general anesthesia, the patient in the lithotomy position. Exam was done. There was large amount of stool in the rectum. No mass was found. The stool was manually removed. There was large amount of firm stool, it was hard, this was all removed till the rectum was completely free, and all as much as possible could be removed. The rectum was irrigated with saline. Additional stool was removed. The rigid proctoscopy was done up to the just above the rectosigmoid junction of additional stool, this was also freed using irrigation, freeing some more stool, this was also removed till no further stool could be seen, although there was stool palpable in the colon through the wall of the rectum, but this could not be removed transanally. The rectum was irrigated additionally with saline. No additional stool could be removed. The patient tolerated the procedure well. Estimated blood loss was zero mL. There were no complications. The patient was taken to the recovery room in satisfactory condition. Ketan Fan MD DWG/MODL /[id number]
[2019-09-14] VITALS (7 sets, daily range): BP systolic 111–142; BP diastolic 76–98
[2019-09-14] MEDS: ZOLPIDEM TARTRATE 5 MG TAB PO PRN ×2 (01:30→23:20)
[2019-09-14] MEDS: LEVOTHYROXINE SODIUM 100 MCG TAB PO SCH (05:41)
[2019-09-14] MEDS: OXYCODONE HCL IR 5 MG TAB PO PRN ×4 (06:41→20:40)
--- NOTE | 2019-09-14 07:00 | NUR ---
received bedside report. pt is alert resting comfortably in bed, no s/s of distress noted. call light within reach and bed safety in place
[2019-09-14] MEDS: FAMOTIDINE 20 MG TAB PO SCH (07:30)
[2019-09-14] MEDS: ASPIRIN 81 MG ENTERIC COATED PO SCH (08:25)
[2019-09-14] MEDS: AMLODIPINE BESYLATE 5 MG TAB PO SCH (08:25)
[2019-09-14] MEDS: METOPROLOL SUCCINATE 25 MG TAB XL PO SCH (08:26)
[2019-09-14] MEDS: ALPRAZOLAM 0.5 MG TAB PO PRN (08:39)
[2019-09-14] MEDS: ONDANSETRON HCL 4 MG ORAL DISINTEGRATING TAB PO PRN (12:21)
[2019-09-14] MEDS ORDERED: CITRATE OF MAGNESIA 300ML BOTTLE PO ONE (13:00)
[2019-09-14] MEDS: FAMOTIDINE 20 MG/2 ML VIAL IV SCH (15:44)
--- NOTE | 2019-09-14 18:15 | NUR ---
Dr. Muñoz making rounds. stated that Dr. Rockwell will see the patient tonight, gave verbal orders.
--- NOTE | 2019-09-14 19:05 | NUR ---
Completed bedside nursing shift report with morning nurse. Pt alert and oriented to name, HOB 45 degrees. Pt c/o mild abdominal pain, previously medicated. Call light within reach. Call light within reach. Bed low and locked.
[2019-09-14] MEDS ORDERED: PEG (High)/E-LYTE SOLN 4,000 ML BTL PO ONE (19:20)
[2019-09-14] MEDS ORDERED: SODIUM CHLORIDE 0.9% 250ML 0 ML ONE (20:49)
[2019-09-14] MEDS ORDERED: SODIUM CHLORIDE 0.9% 50ML 0 ML ONE (20:49)
[2019-09-14] MEDS: ATORVASTATIN 40 MG TAB PO SCH (21:55)
[2019-09-14] MEDS: PROMETHAZINE 12.5MG/ NACL 0.9% 12.5 MG/50 ML BAG IV PRN (23:20)
[2019-09-15] VITALS (9 sets, daily range): BP systolic 98–139; BP diastolic 60–93
[2019-09-15] MEDS: OXYCODONE HCL IR 5 MG TAB PO PRN ×3 (03:50→18:20)
--- NOTE | 2019-09-15 03:51 | Consultation ---
DATE OF CONSULTATION: 09/14/2019 GI Consult Note REASON FOR CONSULT: Fecal impaction. HISTORY OF PRESENTING ILLNESS: A 58-year-old female, who had undergone incarcerated ventral hernia repair as well as lysis of adhesion causing small-bowel obstruction. This surgery was done by Dr. Fan about less than a week ago. The patient got readmitted with no bowel movement for many days. Serial abdominal x-rays showing massive stool load in the colon and fecal impaction in the rectum. She was taken to the OR and has had digital disimpaction under general anesthesia. The patient still did not have any bowel movement today. Repeat abdominal exam is showing a stool load again. She takes oxycodone for chronic back pain. She takes 4 times daily. The patient stated that she has been taking oxycodone for many years. REVIEW OF SYSTEMS: Twelve-point systems reviewed, symptomatology is limited to GI system. PAST MEDICAL HISTORY: Coronary artery disease status post CABG, hypertension, hyperlipidemia, history of pancreatitis, chronic backache, anxiety, depression. PAST SURGICAL HISTORY: CABG, thyroidectomy, hysterectomy, tonsillectomy, cardiac catheterization. FAMILY HISTORY: Noncontributory. Negative for any GI or CALENDAR CONTROL CLERK BLOOD BANK malignancies. SOCIAL HISTORY: . Former smoker. Seldom drinks alcohol. Occasionally smokes marijuana. ALLERGIES: PENICILLIN, REGLAN, TRAMADOL, AND COMPAZINE. MEDICATIONS: Home medications: 1. Lisinopril. 2. Norvasc. 3. Metoprolol. 4. Lipitor. 5. Aspirin. 6. Oxycodone. Inpatient medications list reviewed as per JUN. PHYSICAL EXAMINATION: VITAL SIGNS: Temperature 98.1, pulse 90, respirations 18, blood pressure 118/88, and oxygen saturation 99% on room air. GENERAL: Appears to be in some distress. HEENT: Oral mucosa is moist. Anicteric sclerae. CVS: S1, S2. Regular. LUNGS: Bilaterally grossly clear. ABDOMEN: Soft. Palpable left lower quadrant tenderness. No rebound, rigidity, or guarding. RECTAL: Revealed massive amount of solid rock stool that cannot be digitally removed, tender rectal exam. No palpable mass or hemorrhoids. No blood on the gloved finger. EXTREMITIES: Warm. No leg edema. LABORATORY DATA: WBC 5.03, hemoglobin 12.7, hematocrit 38.6, MCV 96.5, and platelet count 248. Sodium 138, potassium 4.2, chloride 107, bicarb 21, BUN 23, creatinine 0.79, glucose 81. Abdominal x-ray yesterday showed large stool burden with diminishing amount of stool in the right colon. No evidence of bowel obstruction. IMPRESSION: Massive fecal impaction, with very solid rock stools. The patient was screaming in pain during my rectal examination. She would not allow digital disimpaction. Given the amount of solid rock stool in the rectum, this cannot be digitally removed at bedside without the patient's cooperation. PLAN: Therefore, I agree that the patient needs to be taken to the OR again to get digital disimpaction under general anesthesia. I discussed this with Dr. Victoria. Domingo Rockwell MD SA/ABE /[id number]
[2019-09-15] MEDS: LEVOTHYROXINE SODIUM 100 MCG TAB PO SCH (06:15)
[2019-09-15] MEDS: PROMETHAZINE 12.5MG/ NACL 0.9% 12.5 MG/50 ML BAG IV PRN ×3 (06:25→21:45)
--- NOTE | 2019-09-15 06:52 | NUR ---
BS ROUNDS COMPLETED WITH MORNING NURSE, PT NO ACUTE DISTRESS.
--- NOTE | 2019-09-15 07:03 | NUR ---
IM- progress note O/N see below ROS: unreliable v/s revd PE tired appearing anicteric ns1s2 mod bs soft nt nd; left groin dressing in place; site soft; nontender no edema skin dry flat affect labs/meds revd A/P: 58yoF Chest pain- plavix loading; f/u echo; LHC no intervention; medical mgmt; CAD with hx stents and CABG- f/u echo Hypertensive heart ds- cont BB HLD_ statin Hypothyroidism- TSH high; Noncompliance? restart med; check TFTs Anxiety d/o- use BZD Insomnia- temazepam Prop: ppi dispo: Abdominal wall hernia- tender- get CT; check labs; d/c planning; 09-02 CHronically incarcerated hernia- sx planned; 6- awaiting surgery for hernia 6-2 doing better; cont care; f/u labs; 6-3 check labs; d/c planning; 6-4 awaiting BM 6-5 cont bowel regimen; f/u surgery 6-6 f/u KUB; cont bowel reg 6-7 check renal fn 6-8 renal improving; await BM 6-9 d/w ; NPO at midnight, planned for sedation and colonic cleanout tomorrow for severe constipation 6-10 check labs; surgery pending; 6-11 GI consultation. Julien Forbes MD, PhD.
--- NOTE | 2019-09-15 07:27 | NUR ---
PATIENT IN BED RESTING WITH NO S/S OF DISCOMFORT. BED IN LOWER POSITION, CALL LIGHT AT REACH.
[2019-09-15] MEDS ORDERED: OXYCODONE HCL IR 5 MG TAB PO PRN (07:45)
[2019-09-15] MEDS: FAMOTIDINE 20 MG/2 ML VIAL IV SCH ×2 (08:00→16:30)
[2019-09-15] MEDS: METOPROLOL SUCCINATE 25 MG TAB XL PO SCH (09:00)
[2019-09-15] MEDS: AMLODIPINE BESYLATE 5 MG TAB PO SCH (09:00)
[2019-09-15] MEDS: ASPIRIN 81 MG ENTERIC COATED PO SCH (09:00)
[2019-09-15] MEDS: ALPRAZOLAM 0.5 MG TAB PO PRN ×2 (10:10→17:20)
--- NOTE | 2019-09-15 10:30 | NUR ---
PATIENT HAS AN ORDER FOR SOAP ENEMA, TREATMENT OFFERED AND PATIENT REFUSED. MD NOTIFIED, ORDER RECEIVED TO STILL TRY BECAUSE DR FAUSTIN WANT HER TO GET ONE. PATIENT NOTIFIED, SECOND ATTEMPT, SHE CONTINUED TO REFUSE STATING " THE GI DR SAW ME YESTERDAY AND SAID THAT I SHOULD NOT ACCEPT NO MORE ENEMA". IN BED WITH CALL LIGHT AT REACH.
--- NOTE | 2019-09-15 11:21 | NUR ---
PATIENT AMBULATING IN HALLWAY, NO COMPLAIN VOICED.
[2019-09-15] MEDS ORDERED: BISACODYL 5 MG TAB EC PO ONE (12:15)
--- NOTE | 2019-09-15 14:00 | NUR ---
PATIENT NOTED BY HOSPITAL STAFF SMOKING OUTSIDE. PATIENT EDUCATED ON THE PROHIBITION TO SMOKE WHILE IN THE HOSPITAL . NICOTINE PATCH OFFERED, BUT PATIENT REFUSED. EDUCATED THAT IF SHE GOES OUT AND SMOKES AGAIN, SHE WILL BE DISCHARGED FROM THE HOSPITAL. PATIENT AGREED WITH PLAN OF CARE.
--- NOTE | 2019-09-15 16:44 | NUR ---
PATIENT STATED THAT SHE DOES NOT WANT DR FAUSTIN ANYMORE. DR HEART NOTIFIED, NEW ORDER RECEIVED.
--- NOTE | 2019-09-15 16:58 | NUR ---
Nutrition Intervention Note RD Recommendation(s) for Physician: -Recommend advancing diet as medically appropriate - Ensure Enlive TID for adequacy The patient meets criteria for unspecified SEVERE protein-calorie malnutrition. Plan of Care: RD following, monitoring for tolerance and adequacy Nutrition reason for involvement: follow up RD Assessment: 09/14: Follow up. Pt is currently NPO. Pt had a disimpaction on 09/13, but is still awaiting to have a BM per as discussed in interdisciplinary rounds. It is documented that pts abdomen remains large, distended, and tender. Will continue to monitor. 09/10: Follow up. Pt eating dinner at time of visit, reports tolerating well and eating 50% of meals. Pt reports drinking Ensure BID, receptive to increasing to TID- RD to order. Pt continues with no BM, she reports MD aware. Noted abdominal rounded and distended. All questions and concerns addressed at time of visit. Chart reviewed. Will continue to monitor. 09/05: Follow up. Pt had a procedure regarding lysis of adhesion and repair of incarcerated ventral hernia on 09/03. Pt stated she is still eating <50% of her meals. Pt is awaiting to have a BM per RN. Pt reports some nausea and stated she had vomited yesterday. Pt is drinking Ensure nutrition supplements. Will continue to monitor. (09/01/19) Pt is a 58 year old female admitted with chest pain. Pt stated she is having N/V and unable to tolerate her meals today. Pt reports eating < 50% of meals for the past couple of weeks. Pt also reported she had unintentionally lost weight and used to weigh 159 lbs 6 months ago. Pt currently has a weight of 135 lbs in chart. This would be a 15% weight loss in 6 months which is considered significant weight loss. Pt was interested in a nutrition supplement. Recommend Ensure Enlive BID for added nutrition. Will continue to monitor. Principal Problems/Diagnoses: chest pain PMH: CAD, status post CABG, hyperlipidemia, repeated pancreatitis, chronic back pain and anxiety GI: pt is awaiting to have a BM, abd distended and round Skin: intact Labs: 09/12: Na 138, K 4.2, BUN 23, Cr 0.79, Glu 81 09/09: Na 138, K 4.3, BUN 30, Cr 0.87, Gluc 90, Ca 9.5 09/05: Na 137, K 4.8, BUN 21, Cr 1.32, Ca 9.6 (08/31) Na 141, K 3,1, BUN 13, Cr 0.99, Glu 79, Ca 8.5 Meds: oxycodone, pepcid, levothyroxine, Lipitor, zofran, lactulose, colace, metoprolol, citrate of magnesia Ht: 63 inches Wt: 135 lbs BMI: 23.9 kg/m2 IBW: 115 lbs Malnutrition Evaluation (09/01/19) The patient meets criteria for unspecified SEVERE protein-calorie malnutrition. Energy intake: <50% of estimated energy requirements for >5 days Weight loss: >10% in 6 months (Chronic) Fat loss: no loss identified Muscle loss: no loss identified Supporting Evidence: Fluid accumulation: no edema per MD note Functional Status: unable to evaluate Nutrition Prescription (Diet Order): GI soft Estimated Nutritional Needs: [id number] calories/day (25-35 kcal/kg CBW) 61-92 g protein/day (1-1.5 g pro/kg CBW) Diet Adequacy: Not meeting calorie needs, pt is currently NPO Tolerance: tolerance pending pt is now NPO Diet Education Needs Assessment: Pt declined need for diet education materials on 08/31 Nutrition Care Level: moderate Nutrition Diagnosis: Severe malnutrition related to medical status as evidenced by pt meeting < 50% of estimated energy needs for > 5 days and >10% weight loss in 6 months. Goal: Patient will meet 75-100% of estimated needs by follow up Progress: pt is now NPO Interventions: -fiber- modified diet, Commercial beverage Monitoring/Evaluation: -Total energy intake, Total protein intake, Modified diet, Liquid supplement, Weight change Signed: Ria Martinez, RD, LD
--- NOTE | 2019-09-15 19:00 | NUR ---
Bedside nursing shift report completed with morning nurse. Pt alert and oriented to name, standing by window reading. Abd pain is controlled at this time. Call light within reach. Bed low and locked. Will continue to monitor.
--- NOTE | 2019-09-15 19:18 | NUR ---
CALL RECEIVED FROM DR AYALA REGARDING A CONSULT, HE STATED THAT HE CANNOT SEE THE PATIENT. DR HEART NOTIFIED, NO NEW ORDER RECEIVED.
[2019-09-15] MEDS: CITRATE OF MAGNESIA 300ML BOTTLE PO SCH (19:30)
[2019-09-15] MEDS: ATORVASTATIN 40 MG TAB PO SCH (21:00)
[2019-09-15] MEDS: ZOLPIDEM TARTRATE 5 MG TAB PO PRN (21:45)
--- NOTE | 2019-09-15 21:45 | Progress Note ---
DATE: 09/15/2019 SUBJECTIVE: The patient has not had any bowel movement today. She feels fullness in the rectum. REVIEW OF SYSTEMS: GENERAL: Weakness, no fever or chills. CVS: No chest pain or palpitation. RESPIRATORY: No cough or expectoration. MEDICATIONS: 1. Oxycodone 5 mg q.8 hours as needed. 2. Alprazolam 0.5 mg twice daily as needed. 3. Famotidine 20 mg IV twice daily. 4. Levothyroxine 200 mcg p.o. daily. 5. Zolpidem 5 mg p.o. at bedtime p.r.n. as needed. 6. Atorvastatin 80 mg p.o. at bedtime. 7. Zofran 4 mg p.o. q.4 hours as needed. 8. Acetaminophen/butalbital/caffeine 1 tablet q.8 hours as needed. 9. Lactulose 200 mg twice daily as needed. 10. Docusate 100 mg p.o. twice daily as needed. 11. Amlodipine 5 mg p.o. daily. 12. Metoprolol succinate 12.5 mg p.o. daily. 13. Aspirin 81 mg p.o. daily. 14. Polyethylene glycol 2000 mL p.o. 15. Magnesium citrate 300 mg p.o. x1. 16. Nitroglycerin 0.4 mg p.o. sublingual every 5 minutes as needed. PHYSICAL EXAMINATION: VITAL SIGNS: Temperature 98, pulse 71, respirations 18, blood pressure 122/82, oxygen saturation 99% on room air. GENERAL: Appears to be in distress secondary to fecal impaction. HEENT: Oral mucosa is moist. ABDOMEN: Soft. RECTAL: The patient did not allow second rectal examination today. IMPRESSION: Severe constipation with solid stool, fecal impaction in the rectum. PLAN: This needs to be digitally disimpacted under general anesthesia. This can be accomplished by Surgical Service. Domingo Rockwell MD SA/ABE /[id number]
[2019-09-16] VITALS (10 sets, daily range): BP systolic 102–182; BP diastolic 57–117
[2019-09-16] MEDS: ALPRAZOLAM 0.5 MG TAB PO PRN ×2 (06:40→15:05)
[2019-09-16] MEDS: LEVOTHYROXINE SODIUM 100 MCG TAB PO SCH (06:40)
[2019-09-16] MEDS: OXYCODONE HCL IR 5 MG TAB PO PRN ×3 (06:40→21:47)
--- NOTE | 2019-09-16 07:19 | NUR ---
PATIENT IN BED RESTING WITH NO RESPIRATORY DISTRESS. GOLYTELY MIXED FOR PATIENT TO START DRINKING, SHE AGREED TO DRINK IT. WILL CLOSELY MONITOR.
[2019-09-16 07:25] LABS: BASOPHILS # (AUTO) 0.1 (0.0-0.1); BASOPHILS % 2.4 % (0.0-1.0); EOSINOPHILS # (AUTO) 0.2 (0.0-0.4); EOSINOPHILS % 5.3 % (0.0-6.0); HEMATOCRIT 36.4 % (34.2-44.1); HEMOGLOBIN 12.1 g/dL (12.0-16.0); LYMPHOCYTES # (AUTO) 1.8 (1.0-3.2); MEAN CORPUSCULAR HEMOGLOBIN 31.8 pg (28-32); MEAN CORPUSCULAR HGB CONC 33.2 g/dL (31-35); MEAN CORPUSCULAR VOLUME 95.8 fL (81-99); MONOCYTES # (AUTO) 0.3 (0.2-0.8); MONOCYTES % 8.2 % (4.4-11.3); NEUTROPHILS # (AUTO) 1.7 (2.1-6.9); NEUTROPHILS % 39.9 % (38.7-80.0); PLATELET COUNT 249 x10e3/uL (140-360); RED CELL DISTRIBUTION WIDTH 14.2 % (11.7-14.4)
[2019-09-16] MEDS: FAMOTIDINE 20 MG/2 ML VIAL IV SCH ×2 (08:00→16:30)
[2019-09-16] MEDS: PEG (High)/E-LYTE SOLN 4,000 ML BTL PO SCH (08:19)
[2019-09-16] MEDS: ASPIRIN 81 MG ENTERIC COATED PO SCH (08:19)
[2019-09-16] MEDS: AMLODIPINE BESYLATE 5 MG TAB PO SCH (08:19)
[2019-09-16] MEDS: METOPROLOL SUCCINATE 25 MG TAB XL PO SCH (08:20)
--- NOTE | 2019-09-16 12:03 | NUR ---
PATIENT DRINKING GOLYTELY GRADUALLY, IN BED WITH CALL LIGHT AT REACH.
--- NOTE | 2019-09-16 13:00 | NUR ---
PATIENT CALLED FOR ASSISTANCE IN THE BATHROOM, UPON ARRIVAL, PATIENT NOTED IN THE BATHROOM WITH HER RIGHT KNEE ON THE TOWEL IN FRONT OF THE TOILET. WHEN ASKED WHAT HAPPENED, PATIENT STATED: " I WAS TRYING TO USE THE RESTROOM AND MY BACK STARTED HURTING VERY BAD I WENT ON MY KNEE TO SUPPORT MY BACK BECAUSE I HAVE A BAD BACK. I NEED A BACK SURGERY, I ALREADY HAVE 2; THIS HAS HAPPEN TO ME 3 TIMES". PATIENT ASSISTED TO THE TOILET BY 2 STAFFS, UPON ASSESSMENT, NO INJURY NOTED. AFTER USING THE RESTROOM, PATIENT ASSISTED TO BED. PATIENT IS COMPLAINING THAT SHE HAS SERIOUS BACK ISSUES AND THE DR DECREASED HER PAIN MEDICATION, SHE IS NOT HAPPY ABOUT THAT. FIORICET GIVEN AND MD NOTIFIED OF PATIENT COMPLAIN. NO NEW ORDER RECEIVED. V/S 98.3-81-20-159/100 AND 100% ON RA.
[2019-09-16] MEDS: ACETAMIN/BUTALBITAL/CAFFEINE TAB PO PRN (13:11)
--- NOTE | 2019-09-16 13:24 | NUR ---
IM- progress note O/N see below ROS: unreliable v/s revd PE tired appearing anicteric ns1s2 mod bs soft nt nd; left groin dressing in place; site soft; nontender no edema skin dry flat affect labs/meds revd A/P: 58yoF Chest pain- plavix loading; f/u echo; LHC no intervention; medical mgmt; CAD with hx stents and CABG- f/u echo Hypertensive heart ds- cont BB HLD_ statin Hypothyroidism- TSH high; Noncompliance? restart med; check TFTs Anxiety d/o- use BZD Insomnia- temazepam Prop: ppi dispo: Abdominal wall hernia- tender- get CT; check labs; d/c planning; 09-02 CHronically incarcerated hernia- sx planned; 6- awaiting surgery for hernia 6-2 doing better; cont care; f/u labs; 6-3 check labs; d/c planning; 6-4 awaiting BM 6-5 cont bowel regimen; f/u surgery 6-6 f/u KUB; cont bowel reg 6-7 check renal fn 6-8 renal improving; await BM 6-9 d/w ; NPO at midnight, planned for sedation and colonic cleanout tomorrow for severe constipation 6-10 check labs; surgery pending; 6-11 GI consultation. 6-12 endoscopy pending; bowel prep; reduce narcotics; nicotine patch . 6-13 cont care. Julien Forbes MD, PhD.
[2019-09-16] MEDS: PROMETHAZINE 12.5MG/ NACL 0.9% 12.5 MG/50 ML BAG IV PRN ×2 (15:05→23:45)
--- NOTE | 2019-09-16 15:58 | NUR ---
PATIENT C/O PAIN AND WAS MEDICATED ORDERED. IN BED RESTING WITH CALL LIGHT AT REACH.
[2019-09-16] MEDS: CITRATE OF MAGNESIA 300ML BOTTLE PO SCH (17:00)
--- NOTE | 2019-09-16 19:28 | NUR ---
PATIENT REQUESTED MD ANTELMO HEART BE CALLED TO COME TO SEE HER STATING "HE JUST LEFT ME HERE TO [facility], [facility] SEEN ME IN TWO DAYS DOESNT CARE CAN YOU CALL HIM", MD STATES " I WILL BE THERE TONIGHT TO SEE HER"
--- NOTE | 2019-09-16 19:49 | NUR ---
MD castle on the jordy rounding on patient patient requesting better pain relief, per pt MD castle stated to her that he will increase pain medication from Q8H to Q6h for better pain control
[2019-09-16] MEDS: ATORVASTATIN 40 MG TAB PO SCH (19:55)
--- NOTE | 2019-09-16 21:21 | NUR ---
NO MEDICATION ORDER CHANGED, NOTIFIED MD HEART THAT PATIENT STATED "MY PAIN MEDICATION WILL BE CHANGED AND HE WILL ADD VALIUM INSTEAD OF XANAX BACK ON", STATED "I TRIED TO CONTACT YOU, CAN YOU PLEASE DISCONTINUE XANAX, ADD VALIUM 5MG PO Q8H PRN, INCREASE PAIN MEDICATION FROM 5MG TO 10MG AND MAKE Q6h" ALL ORDERS CARRIED OUT VERIFIED AND PENDING
[2019-09-16] MEDS: DIAZEPAM 5 MG TAB PO PRN (22:06)
[2019-09-16] MEDS: LABETALOL HCL 5 MG/ML 20ML VIAL IV PRN (22:39)
[2019-09-17] VITALS (11 sets, daily range): BP systolic 118–158; BP diastolic 91–109
--- NOTE | 2019-09-17 | NUR ---
patient report episode of nausea/vomiting X 1, 100cc of clear vomitus noted in trash, requested prn IV medication for nausea, PRN Phenergan given IV tolerated well, PICC line double lumen flushes well, site intact, DRESSING C/D/I
[2019-09-17] MEDS: OXYCODONE HCL IR 5 MG TAB PO PRN ×4 (03:47→23:04)
--- NOTE | 2019-09-17 05:20 | NUR ---
IM- progress note O/N see below ROS: unreliable v/s revd PE tired appearing anicteric ns1s2 mod bs soft nt nd; left groin dressing in place; site soft; nontender no edema skin dry flat affect labs/meds revd A/P: 58yoF Chest pain- plavix loading; f/u echo; LHC no intervention; medical mgmt; CAD with hx stents and CABG- f/u echo Hypertensive heart ds- cont BB HLD_ statin Hypothyroidism- TSH high; Noncompliance? restart med; check TFTs Anxiety d/o- use BZD Insomnia- temazepam Prop: ppi dispo: Abdominal wall hernia- tender- get CT; check labs; d/c planning; 5 CHronically incarcerated hernia- sx planned; 6- awaiting surgery for hernia 6-2 doing better; cont care; f/u labs; 6-3 check labs; d/c planning; 6-4 awaiting BM 6-5 cont bowel regimen; f/u surgery 6-6 f/u KUB; cont bowel reg 6-7 check renal fn 6-8 renal improving; await BM 6-9 d/w ; NPO at midnight, planned for sedation and colonic cleanout tomorrow for severe constipation 6-10 check labs; surgery pending; 6-11 GI consultation. 6-12 endoscopy pending; bowel prep; reduce narcotics; nicotine patch . 6-13 cont care. 6-14 pain controlled; endoscopy tomorrow; Julien Forbes MD, PhD.
[2019-09-17] MEDS: LEVOTHYROXINE SODIUM 100 MCG TAB PO SCH (05:36)
[2019-09-17] MEDS: PEG (High)/E-LYTE SOLN 4,000 ML BTL PO SCH (05:36)
--- NOTE | 2019-09-17 07:16 | NUR ---
PATIENT IN BED TALKING TO MD, NO DISTRESS NOTED. SCD IN PLACE, BED IN LOWER POSITION, CALL LIGHT AT REACH.
[2019-09-17] MEDS: FAMOTIDINE 20 MG/2 ML VIAL IV SCH ×2 (07:30→16:32)
[2019-09-17] MEDS: DIAZEPAM 5 MG TAB PO PRN ×2 (08:00→16:25)
[2019-09-17] MEDS: AMLODIPINE BESYLATE 5 MG TAB PO SCH (08:16)
[2019-09-17] MEDS: METOPROLOL SUCCINATE 25 MG TAB XL PO SCH (08:16)
[2019-09-17] MEDS: ASPIRIN 81 MG ENTERIC COATED PO SCH (09:18)
[2019-09-17] MEDS: ACETAMIN/BUTALBITAL/CAFFEINE TAB PO PRN (13:45)
[2019-09-17] MEDS: PROMETHAZINE 12.5MG/ NACL 0.9% 12.5 MG/50 ML BAG IV PRN ×2 (13:45→23:06)
--- NOTE | 2019-09-17 15:58 | NUR ---
PATIENT AMBULATING IN THE HALLWAY, NO COMPLAIN VOICED. WILL CLOSELY MONITOR.
[2019-09-17] MEDS: CITRATE OF MAGNESIA 300ML BOTTLE PO SCH (17:20)
--- NOTE | 2019-09-17 18:53 | NUR ---
BEDSIDE SHIFT REPORT GIVEN TO ON COMING NURSE. PATIENT IN BED WITH CALL LIGHT AT REACH.
[2019-09-17] MEDS: ATORVASTATIN 40 MG TAB PO SCH (20:57)
[2019-09-18] VITALS (8 sets, daily range): BP systolic 105–138; BP diastolic 73–108
[2019-09-18] MEDS: DIAZEPAM 5 MG TAB PO PRN ×3 (00:53→17:37)
[2019-09-18] MEDS: PEG (High)/E-LYTE SOLN 4,000 ML BTL PO SCH (05:06)
[2019-09-18] MEDS: LEVOTHYROXINE SODIUM 100 MCG TAB PO SCH (05:49)
[2019-09-18] MEDS: OXYCODONE HCL IR 5 MG TAB PO PRN ×3 (05:49→17:37)
--- NOTE | 2019-09-18 06:13 | NUR ---
IM- progress note O/N see below ROS: unreliable v/s revd PE tired appearing anicteric ns1s2 mod bs soft nt nd; left groin dressing in place; site soft; nontender no edema skin dry flat affect labs/meds revd A/P: 58yoF Chest pain- plavix loading; f/u echo; LHC no intervention; medical mgmt; CAD with hx stents and CABG- f/u echo Hypertensive heart ds- cont BB HLD_ statin Hypothyroidism- TSH high; Noncompliance? restart med; check TFTs Anxiety d/o- use BZD Insomnia- temazepam Prop: ppi dispo: Abdominal wall hernia- tender- get CT; check labs; d/c planning; 09-02 CHronically incarcerated hernia- sx planned; 6- awaiting surgery for hernia 6-2 doing better; cont care; f/u labs; 6-3 check labs; d/c planning; 6-4 awaiting BM 6-5 cont bowel regimen; f/u surgery 6-6 f/u KUB; cont bowel reg 6-7 check renal fn 6-8 renal improving; await BM 6-9 d/w ; NPO at midnight, planned for sedation and colonic cleanout tomorrow for severe constipation 6-10 check labs; surgery pending; 6-11 GI consultation. 6-12 endoscopy pending; bowel prep; reduce narcotics; nicotine patch . 6-13 cont care. 6-14 pain controlled; endoscopy tomorrow; 6-15 f/u endoscopy- not done; surgery re-eval for mechanical disimpaction. Julien Forbes MD, PhD.
--- NOTE | 2019-09-18 07:00 | NUR ---
received bedside report. pt is alert resting in bed, no s/s of distress. call light within reach and instructed pt to call RN for help
[2019-09-18 07:41] LABS: ALANINE AMINOTRANSFERASE 23 IU/L (0-55); ALBUMIN 3.3 g/dL (3.5-5.0); ALBUMIN/GLOBULIN RATIO 1.3 (0.8-2.0); ALKALINE PHOSPHATASE 66 IU/L (40-150); BLOOD UREA NITROGEN 13 mg/dL (7-26); BUN/CREATININE RATIO 16 (6-25); CALCIUM 9.1 mg/dL (8.4-10.2); CARBON DIOXIDE 24 mmol/L (22-29); CHLORIDE 109 mmol/L (98-107); CREATININE, SERUM 0.82 mg/dL (0.57-1.11); EST GLOMERULAR FILTRATION RATE > 60 ML/MIN (60-); GLUCOSE 83 mg/dL (74-118); SODIUM 140 mmol/L (136-145)
[2019-09-18] MEDS: AMLODIPINE BESYLATE 5 MG TAB PO SCH ×2 (09:00→11:24)
[2019-09-18] MEDS: ASPIRIN 81 MG ENTERIC COATED PO SCH (09:40)
[2019-09-18] MEDS: METOPROLOL SUCCINATE 25 MG TAB XL PO SCH (09:41)
[2019-09-18] MEDS: FAMOTIDINE 20 MG/2 ML VIAL IV SCH ×2 (09:42→17:37)
--- NOTE | 2019-09-18 11:51 | NUR ---
Received call from Dr. Muñoz, pt was not prepped for colonoscopy as per his orders over the weekend. upon investigation, the orders were cancelled. notified DON and the issue is being looked into. no new orders received by Dr. Muñoz
[2019-09-18] MEDS: PROMETHAZINE 12.5MG/ NACL 0.9% 12.5 MG/50 ML BAG IV PRN (13:18)
[2019-09-18] MEDS ORDERED: BISACODYL 5 MG TAB EC PO ONE (15:00)
[2019-09-18] MEDS ORDERED: PEG (High)/E-LYTE SOLN 4,000 ML BTL PO ONE (15:00)
[2019-09-18] MEDS ORDERED: CITRATE OF MAGNESIA 300ML BOTTLE PO ONE (15:00)
--- NOTE | 2019-09-18 19:00 | NUR ---
Nursing shift report completed bedside with morning nurse. Pt alert and oriented to name, lying in bed HOB 30 degrees. c/o mild pain to abdomen, previously medicated. Call light within reach. Bed low and locked. Will continue to monitor.
[2019-09-18] MEDS: SOD PHOSPHATE/SOD BIPHOSPHATE ENEMA 132 ML BTL PR SCH ×2 (20:45→21:00)
[2019-09-18] MEDS: ATORVASTATIN 40 MG TAB PO SCH (21:00)
[2019-09-18] MEDS: ONDANSETRON HCL INJ 2MG/ML 2ML 2 MG/ML VIAL IV PRN (21:00)
--- NOTE | 2019-09-18 23:56 | Progress Note ---
DATE: 09/18/2019 GI Progress Report SUBJECTIVE: I am following this patient after the weekend. She still has not had any bowel movement. Various Fleet enema has been tried. REVIEW OF SYSTEMS: GENERAL: Weakness. No fever or chills. CVS: No chest pain or palpitation. RESPIRATORY: No cough or expectoration. MEDICATIONS: 1. Diazepam 5 mg q. 8 hours as needed. 2. Oxycodone 10 mg p.o. q.6 hours as needed. 3. Famotidine 20 mg IV twice daily. 4. Amlodipine 5 mg p.o. daily. 5. Metoprolol succinate 12.5 mg p.o. daily. 6. Aspirin 81 mg p.o. daily. 7. Levothyroxine 200 mcg p.o. daily. 8. Atorvastatin 80 mg p.o. at bedtime. 9. Labetalol 5 mg IV q.2 hours p.r.n. 10. Acetaminophen 650 mg p.o. q.6 hours as needed. 11. Lactulose 20 mg p.o. b.i.d. as needed. 12. Docusate 100 mg p.o. b.i.d. as needed. 13. Phos, Fleet enema as needed. 14. Zofran 4 mg IV q.6 hours as needed. 15. Nitroglycerin 0.4 mg sublingual every 5 minutes as needed. PHYSICAL EXAMINATION: VITAL SIGNS: Temperature 97.5, pulse 88, respirations 20, blood pressure 138/90, oxygen saturation 100% on room air. GENERAL: Appears in distress and an upset, has tears in her eyes. HEENT: Oral mucosa is moist. ABDOMEN: Soft. Mild lower quadrant tenderness on deep palpation. No rebound, rigidity, or guarding. Bowel sounds minimal. LABORATORY DATA: Sodium 140, potassium 4.0, chloride 109, bicarb 24, BUN 13, creatinine 0.82. IMPRESSION: 1. Severe constipation, due to use of oxycodone. 2. Massive solid rock like fecal impaction in the rectum. PLAN: This fecal impaction cannot be digitally disimpacted at the bedside. When I had performed rectal examination last week, the patient was screaming in pain. I felt large tennis ball size hard rock stool is stuck in the rectum. This cannot be removed by any amount of enema or rectal suppositories. This has to be removed digitally under general anesthesia. No point of giving GoLYTELY, as this will cause abdominal distention secondary to obstruction in the rectum from hard rock stool balls. If this will not be removed soon, the patient is at the risk of rectal perforation. I called Dr. Andrei Victoria today, I discussed the urgency of disimpaction. He is going to call Dr. Jackson, who has been consulted in place of Dr. Fan. Domingo Rockwell MD SA/ABE /[id number]
[2019-09-19] VITALS (8 sets, daily range): BP systolic 98–165; BP diastolic 62–113
[2019-09-19] MEDS: HYDROMORPHONE 1MG/1ML INJ IV PRN ×5 (04:30→22:30)
[2019-09-19] MEDS: LEVOTHYROXINE SODIUM 100 MCG TAB PO SCH (05:54)
[2019-09-19] MEDS: ASPIRIN 81 MG ENTERIC COATED PO SCH (07:36)
[2019-09-19] MEDS: AMLODIPINE BESYLATE 5 MG TAB PO SCH (07:36)
[2019-09-19] MEDS: METOPROLOL SUCCINATE 25 MG TAB XL PO SCH (07:36)
[2019-09-19] MEDS: FAMOTIDINE 20 MG/2 ML VIAL IV SCH ×2 (08:39→18:05)
[2019-09-19] MEDS: ONDANSETRON HCL INJ 2MG/ML 2ML 2 MG/ML VIAL IV PRN ×3 (08:39→18:00)
--- NOTE | 2019-09-19 09:20 | NUR ---
Dr. Jackson at the bedside, performed rectal exam to assess impaction. Dr. Jackson ordering CT of abdomen
--- NOTE | 2019-09-19 10:00 | NUR ---
Dr. Muñoz called and gave verbal orders to insert NG tube and push Golytley
--- NOTE | 2019-09-19 10:55 | NUR ---
pt refused insertion of NG tube, will notify physician
--- NOTE | 2019-09-19 11:34 | NUR ---
Informed Dr. Muñoz that the patient refused the NG tube. stated that he will be signing himself off from patient's care
--- NOTE | 2019-09-19 12:07 | NUR ---
informed Dr. Forbes that Dr. Muñoz signed off the pt's care. no new orders received
--- NOTE | 2019-09-19 12:17 | NUR ---
IM- progress note O/N see below ROS: unreliable v/s revd PE tired appearing anicteric ns1s2 mod bs soft nt nd; left groin dressing in place; site soft; nontender no edema skin dry flat affect labs/meds revd A/P: 58yoF Chest pain- plavix loading; f/u echo; LHC no intervention; medical mgmt; CAD with hx stents and CABG- f/u echo Hypertensive heart ds- cont BB HLD_ statin Hypothyroidism- TSH high; Noncompliance? restart med; check TFTs Anxiety d/o- use BZD Insomnia- temazepam Prop: ppi dispo: Abdominal wall hernia- tender- get CT; check labs; d/c planning; 5 CHronically incarcerated hernia- sx planned; 6- awaiting surgery for hernia 6-2 doing better; cont care; f/u labs; 6-3 check labs; d/c planning; 6-4 awaiting BM 6-5 cont bowel regimen; f/u surgery 6-6 f/u KUB; cont bowel reg 6-7 check renal fn 6-8 renal improving; await BM 6-9 d/w ; NPO at midnight, planned for sedation and colonic cleanout tomorrow for severe constipation 6-10 check labs; surgery pending; 6-11 GI consultation. 6-12 endoscopy pending; bowel prep; reduce narcotics; nicotine patch . 6-13 cont care. 6-14 pain controlled; endoscopy tomorrow; 6-15 f/u endoscopy- not done; surgery re-eval for mechanical disimpaction. 6-16 f/u CT abd/pelvis Julien Forbes MD, PhD.
--- NOTE | 2019-09-19 12:24 | NUR ---
ASSESSMENT: Spiritual Distress Pt overwhelmed by 's disappearance. Pt states she hasn't heard from him in "a couple of days." Pt expressed emotions thru words and tears. Pt states her father is going to file a missing person's report. Intervention: Provided unhurried empathic listening and prayer. Provided calming pastoral reassurance. Outcome: Pt expressed appreciation for support. Will continue to follow as able. MARIVEL SALES Document Management Consultant Spiritual Care Department O: [phone]
[2019-09-19] MEDS: DIAZEPAM 5 MG TAB PO PRN ×2 (13:12→21:15)
--- NOTE | 2019-09-19 13:26 | NUR ---
CALL RECEIVED FROM RADHA SULLIVAN. STATES HE IS SIGNING OFF OF THE PT'S CASE, BECAUSE SHE IS REFUSING TREATMENT.
--- NOTE | 2019-09-19 15:16 | NUR ---
Dr. Jackson at the bedside, he has seen CT scan of abdomen
--- NOTE | 2019-09-19 15:30 | NUR ---
Dr. Jackson recommends surgery, refer to notes in chart
--- NOTE | 2019-09-19 15:31 | Diagnostic Imaging Report ---
EXAM: CT Abdomen and Pelvis WITHOUT intravenous contrast INDICATION: Constipation COMPARISON: KUB 09/11/2019, CT abdomen and pelvis of 09/02/2019 TECHNIQUE: Abdomen and pelvis were scanned utilizing a multidetector helical scanner from the lung base to the pubic symphysis without administration of IV contrast. Coronal and sagittal reformations were obtained. IV CONTRAST: None ORAL CONTRAST: None COMPLICATIONS: None RADIATION DOSE: Total DLP: 246 mGy*cm Dose modulation, iterative reconstruction, and/or weight based adjustment of the mA/kV was utilized to reduce the radiation dose to as low as reasonably achievable. FINDINGS: LOWER THORAX: Normal. HEPATOBILIARY: No focal liver lesion. Status post cholecystectomy. SPLEEN: No splenomegaly. PANCREAS: No focal masses or ductal dilatation. ADRENALS: No adrenal nodules. KIDNEYS/URETERS: No hydronephrosis, stones, or solid mass lesions. PELVIC ORGANS/BLADDER: Mildly distended bladder. PERITONEUM / RETROPERITONEUM: No free air or fluid. LYMPH NODES: No lymphadenopathy. VESSELS: Mild scattered atherosclerotic calcifications of the nonaneurysmal abdominal aorta and major branches. GI TRACT: Diffusely increased stool volume throughout the entirety of the colon, most notably with numerous stool balls in the mildly redundant sigmoid colon. No abnormal bowel thickening. No bowel obstruction. BONES AND SOFT TISSUES: No acute osseous injury. No suspicious lytic or blastic lesions. Postoperative findings of L3-S1 spinal fusion. 1.8 cm cystic structure in the subcutaneous soft tissues of the anterior abdominal wall underlying a row of surgical skin shruthi. IMPRESSION: Findings consistent with constipation/fecal impaction. No bowel obstruction. No free air or free fluid. The above findings were discussed with Dr. Jackson on 09/19/2019 3:22 PM, who responded indicating that the communication was understood. Signed by: Marck Nicholas MD on 09/19/2019 3:27 PM
[2019-09-19] MEDS: OXYCODONE HCL IR 5 MG TAB PO PRN (16:18)
--- NOTE | 2019-09-19 19:00 | NUR ---
Completed bedside nursing report with morning nurse. Pt alert and orient, brushing teeth in bathroom, steady gait. No complaints at this time. Call light within reach. Bed low and locked.
[2019-09-19] MEDS: D5.45%NS/KCL 20MEQ 1,000 ML IV SCH (19:36)
[2019-09-19] MEDS: LABETALOL HCL 5 MG/ML 20ML VIAL IV PRN (20:30)
--- NOTE | 2019-09-19 20:51 | NUR ---
Dr. Rockwell at patient bedside, informed patient of procedure tomorrow, no furthers orders.
[2019-09-19] MEDS: ATORVASTATIN 40 MG TAB PO SCH (21:00)
--- NOTE | 2019-09-19 22:11 | Progress Note ---
DATE: 09/19/2019 SUBJECTIVE: The patient still did not have any bowel movement. She was seen by surgeon, Dr. Jackson today. Dr. Jackson performed a digital rectal examination, per my conversation with Dr. Jackson, there was still solid stool balls in the rectum. REVIEW OF SYSTEMS: GENERAL: No fever or chills. Admits to weakness. CVS: No chest pain or palpitation. RESPIRATORY: No cough or expectoration. MEDICATIONS: Reviewed as per the MAR. PHYSICAL EXAMINATION: VITAL SIGNS: Temperature 98, pulse 94, respirations 20, blood pressure 149/106 to 165/113. GENERAL: Not in any apparent distress. HEENT: Oral mucosa is moist. Anicteric sclerae. ABDOMEN: Soft. Mild lower quadrant tenderness on deep palpation. No rebound, rigidity, or guarding. Positive bowel sounds. LABORATORY DATA: None done today. CT scan of the abdomen and pelvis repeated without contrast showed constipation and fecal impaction in the sigmoid colon as well as in the rectum. No bowel obstruction. IMPRESSION: Severe constipation, likely opioid-induced with fecal impaction in sigmoid colon and rectum. PLAN: As per my discussion with Dr. Jackson, he is planning to perform a cecostomy to deliver GoLYTELY in the colon, so that colon can be cleaned out. However, I still think that the patient should be digitally disimpacted under general anesthesia. Domingo Rockwell MD SA/ABE /[id number]
[2019-09-19] MEDS: PROMETHAZINE 12.5MG/ NACL 0.9% 12.5 MG/50 ML BAG IV PRN (22:30)
[2019-09-20] VITALS (8 sets, daily range): BP systolic 105–138; BP diastolic 73–83
[2019-09-20] MEDS: HYDROMORPHONE 1MG/1ML INJ IV PRN ×5 (03:20→21:52)
[2019-09-20] MEDS: LEVOTHYROXINE SODIUM 100 MCG TAB PO SCH (06:00)
--- NOTE | 2019-09-20 06:15 | NUR ---
Pt signed consent for laparoscopic ileostomy or cecostomy procedure today, Pt was NPO after MN.
[2019-09-20] MEDS: FAMOTIDINE 20 MG/2 ML VIAL IV SCH ×2 (08:05→16:57)
[2019-09-20] MEDS: D5.45%NS/KCL 20MEQ 1,000 ML IV SCH (08:05)
[2019-09-20] MEDS: PROMETHAZINE 12.5MG/ NACL 0.9% 12.5 MG/50 ML BAG IV PRN ×2 (08:05→18:20)
[2019-09-20] MEDS: METOPROLOL SUCCINATE 25 MG TAB XL PO SCH (09:00)
[2019-09-20] MEDS: ASPIRIN 81 MG ENTERIC COATED PO SCH (09:00)
[2019-09-20] MEDS: AMLODIPINE BESYLATE 5 MG TAB PO SCH (09:00)
--- NOTE | 2019-09-20 09:30 | NUR ---
ASSESSMENT: Spiritual concern Pt hopeful for successful procedure and her 's whereabouts discovered. Intervention: Provided calming presence and prayer. Outcome: Will continue to follow. MARIVEL SALES Grain Elevator Man Spiritual Care Department O: [phone]
--- NOTE | 2019-09-20 12:47 | NUR ---
IM- progress note O/N see below ROS: unreliable v/s revd PE tired appearing anicteric ns1s2 mod bs soft nt nd; left groin dressing in place; site soft; nontender no edema skin dry flat affect labs/meds revd A/P: 58yoF Chest pain- plavix loading; f/u echo; LHC no intervention; medical mgmt; CAD with hx stents and CABG- f/u echo Hypertensive heart ds- cont BB HLD_ statin Hypothyroidism- TSH high; Noncompliance? restart med; check TFTs Anxiety d/o- use BZD Insomnia- temazepam Prop: ppi dispo: Abdominal wall hernia- tender- get CT; check labs; d/c planning; 09-02 CHronically incarcerated hernia- sx planned; 6- awaiting surgery for hernia 6-2 doing better; cont care; f/u labs; 6-3 check labs; d/c planning; 6-4 awaiting BM 6-5 cont bowel regimen; f/u surgery 6-6 f/u KUB; cont bowel reg 6-7 check renal fn 6-8 renal improving; await BM 6-9 d/w ; NPO at midnight, planned for sedation and colonic cleanout tomorrow for severe constipation 6-10 check labs; surgery pending; 6-11 GI consultation. 6-12 endoscopy pending; bowel prep; reduce narcotics; nicotine patch . 6-13 cont care. 6-14 pain controlled; endoscopy tomorrow; 6-15 f/u endoscopy- not done; surgery re-eval for mechanical disimpaction. 6-16 f/u CT abd/pelvis 6-17 awaiting surgical procedure for disimpaction Julien Forbes MD, PhD.
[2019-09-20] MEDS ORDERED: CLINDAMYCIN 600MG / 50ML 50 ML IV ONE (13:36)
[2019-09-20] MEDS ORDERED: BUPIVACAINE HCL 0.5% INJ 30 ML VIAL INJ ONE (13:42)
[2019-09-20] MEDS ORDERED: NEOSTIGMINE 1 MG/ML 10ML VIAL ONE (14:27)
[2019-09-20] MEDS ORDERED: LIDOCAINE HCL 2% LOCAL INJ 5 ML SDV VIAL INJ ONE (14:27)
[2019-09-20] MEDS ORDERED: ETOMIDATE 2 MG/ML 10 ML INJ IV ONE (14:27)
[2019-09-20] MEDS ORDERED: ONDANSETRON HCL INJ 2MG/ML 2ML 2 MG/ML VIAL ONE (14:27)
[2019-09-20] MEDS ORDERED: PROPOFOL IV EMULSION 10 MG/ML 20 ML VIAL ONE (14:27)
[2019-09-20] MEDS ORDERED: GLYCOPYRROLATE INJ 0.2 MG/ML VIAL ONE (14:27)
[2019-09-20] MEDS ORDERED: SEVOFLURANE INHAL SOLN 250 ML PEN BTL ONE (14:27)
[2019-09-20] MEDS ORDERED: HYDROMORPHONE 1MG/1ML INJ ONE (14:48)
[2019-09-20] MEDS ORDERED: PROMETHAZINE HCL (IM) 25 MG/ML VIAL ONE (14:48)
[2019-09-20] MEDS ORDERED: HYDRALAZINE HCL 20 MG/ML VIAL ONE (15:20)
--- NOTE | 2019-09-20 15:55 | NUR ---
Back from procedure. AAOX3 to time, person, place. Respirations even and unlabored. Dressing to mid abdomen clean, dry, and intact, Dressing to irrigation tube on RLQ abdomen clean, dry, and intact. Addendum: 09/20/19 at 1612 by JOE GARCIA RN 17F bhardwaj draining clear yellow urine. PACU nurse to clarify Bhardwaj orders
[2019-09-20] MEDS: ONDANSETRON HCL INJ 2MG/ML 2ML 2 MG/ML VIAL IV PRN ×2 (16:50→21:52)
--- NOTE | 2019-09-20 17:15 | NUR ---
Nutrition Intervention Note RD Recommendation(s) for Physician: -Recommend advancing diet as medically appropriate -If diet is unable to be advanced, consider alternative means of nutrition - Ensure clear with meals as tolerated for added nutrition while on clear liquid diet The patient meets criteria for unspecified SEVERE protein-calorie malnutrition. Plan of Care: RD following, monitoring for tolerance and adequacy Nutrition reason for involvement: follow up RD Assessment: 09/19: Follow up. Pt had a procedure today (lap assisted irrigation tube placement). Pt was advanced to a clear liquid diet this afternoon. Pt has been NPO/clear liquid diet since 09/13. Recommend Ensure clear with meals as tolerated. Pts abdomen remains large, distended, and tender per documentation. No BM recorded. Will continue to monitor. 09/14: Follow up. Pt is currently NPO. Pt had a disimpaction on 09/13, but is still waiting to have a BM as discussed in interdisciplinary rounds. It is documented that pts abdomen remains large, distended, and tender. Will continue to monitor. 09/10: Follow up. Pt eating dinner at time of visit, reports tolerating well and eating 50% of meals. Pt reports drinking Ensure BID, receptive to increasing to TID- RD to order. Pt continues with no BM, she reports MD aware. Noted abdominal rounded and distended. All questions and concerns addressed at time of visit. Chart reviewed. Will continue to monitor. 09/05: Follow up. Pt had a procedure regarding lysis of adhesion and repair of incarcerated ventral hernia on 09/03. Pt stated she is still eating <50% of her meals. Pt is awaiting to have a BM per RN. Pt reports some nausea and stated she had vomited yesterday. Pt is drinking Ensure nutrition supplements. Will continue to monitor. (09/01/19) Pt is a 58 year old female admitted with chest pain. Pt stated she is having N/V and unable to tolerate her meals today. Pt reports eating < 50% of meals for the past couple of weeks. Pt also reported she had unintentionally lost weight and used to weigh 159 lbs 6 months ago. Pt currently has a weight of 135 lbs in chart. This would be a 15% weight loss in 6 months which is considered significant weight loss. Pt was interested in a nutrition supplement. Recommend Ensure Enlive BID for added nutrition. Will continue to monitor. Principal Problems/Diagnoses: chest pain PMH: CAD, status post CABG, hyperlipidemia, repeated pancreatitis, chronic back pain and anxiety GI: pt is awaiting to have a BM, abdomen distended and round Skin: intact Labs: 09/19: Na 140, K 4.0, Cr 0.82, Glu 83 09/12: Na 138, K 4.2, BUN 23, Cr 0.79, Glu 81 09/09: Na 138, K 4.3, BUN 30, Cr 0.87, Gluc 90, Ca 9.5 09/05: Na 137, K 4.8, BUN 21, Cr 1.32, Ca 9.6 (08/31) Na 141, K 3,1, BUN 13, Cr 0.99, Glu 79, Ca 8.5 Meds: dilaudid, pepcid, Lipitor, zofran, colace, lactulose, metoprolol Ht: 63 inches Wt: 141 lbs (09/18) 135 lbs (08/30) BMI: 25.0 kg/m2 IBW: 115 lbs Malnutrition Evaluation (09/01/19) The patient meets criteria for unspecified SEVERE protein-calorie malnutrition. Energy intake: <50% of estimated energy requirements for >5 days Weight loss: >10% in 6 months (Chronic) Fat loss: no loss identified Muscle loss: no loss identified Supporting Evidence: Fluid accumulation: no edema per MD note Functional Status: unable to evaluate Nutrition Prescription (Diet Order): clear liquids Estimated Nutritional Needs: 7559-4322 calories/day (25-35 kcal/kg CBW) Weight used: 135 lbs 61-92 g protein/day (1-1.5 g pro/kg CBW) Weight used: 135 lbs Diet Adequacy: Not meeting calorie needs, not meeting protein needs Tolerance: tolerance pending Diet Education Needs Assessment: Pt declined need for diet education materials on 08/31 Nutrition Care Level: high Nutrition Diagnosis: Severe malnutrition related to medical status as evidenced by pt meeting < 50% of estimated energy needs for > 5 days and >10% weight loss in 6 months. Goal: Patient will meet 75-100% of estimated needs by follow up Progress: not progressing Interventions: -fiber- modified diet, Commercial beverage Monitoring/Evaluation: -Total energy intake, Total protein intake, Modified diet, Liquid supplement, Weight change Signed: Ria Martinez RD, LD
[2019-09-20] MEDS ORDERED: PEG (High)/E-LYTE SOLN 4,000 ML BTL PO SCH (18:45)
[2019-09-20] MEDS: SOD PHOSPHATE/SOD BIPHOSPHATE ENEMA 132 ML BTL PR SCH (19:10)
--- NOTE | 2019-09-20 19:31 | NUR ---
Report given to oncoming nurse of patient's status. Resting in bed NO s/s of acute distress noted. Side rails upx2, call light within reach. Yeni RN at bedside with AM nurse. Attempted to start Golyte at 30cc/hr as ordered. Patient refused to have it started at this time. Educated on importance of having it done as ordered. Voiced understanding and states "I want it done in an hour or two."
[2019-09-20] MEDS: OXYCODONE HCL IR 5 MG TAB PO PRN (19:51)
--- NOTE | 2019-09-20 19:59 | NUR ---
RECEIVED PT IN BED AOX3 C/O PAIN .ABD DRESSING INTACT AND DRY .DENIES TO START GOLYTELY AT THIS TIME .EXPLAINED THE NEED TO START THE GOLYTELY .GIVEN PAIN MEDICATION .CONTINUE TO MONITOR
[2019-09-20] MEDS ORDERED: FENTANYL CITRATE/PF 100MCG/2 ML INJ ONE (20:14)
[2019-09-20] MEDS ORDERED: MIDAZOLAM HCL 2 MG/2 ML VIAL ONE (20:14)
[2019-09-20] MEDS: ATORVASTATIN 40 MG TAB PO SCH (20:30)
--- NOTE | 2019-09-20 22:00 | NUR ---
PT C/O PAIN AND GIVEN DILAUDID .PT WAS UPSET ABOUT STARTING THE GOLYTELY.REPORT GIVEN TO ANOTHER NIGHT NURSE
--- NOTE | 2019-09-20 22:57 | NUR ---
RECEIVED REPORT FROM NIGHT NURSE.
[2019-09-20] MEDS: DIAZEPAM 5 MG TAB PO PRN (23:29)
--- NOTE | 2019-09-20 23:57 | Operative Report ---
DATE OF PROCEDURE: 09/20/2019 SURGEON: Ketan Jackson MD PREOPERATIVE DIAGNOSIS: Severe constipation. POSTOPERATIVE DIAGNOSIS: Severe constipation. OPERATIVE PROCEDURE: Fecal disimpaction under anesthesia and insertion of cecostomy tube. ANESTHESIA: General. INDICATIONS: A 58-year-old female with 3 weeks history of severe constipation without bowel movement with significant abdominal discomfort. Rectal exam revealed large amount of hard fecal matters. As this is a second disimpaction session, the patient has consented also for placement of cecostomy tube for use of colonic lavage as needed. PROCEDURE FINDING: Loss of fecal matter in the rectum and entire colon DESCRIPTION OF PROCEDURE: The patient was brought to the OR, intubated. Abdomen was prepped and draped in sterile fashion. An infraumbilical incision was made and a 5 mm port inserted. Laparoscopy examination revealed no evidence of small bowel obstruction. The colon was also noted to be without distention. It was very redundant with the transverse colon located in the pelvis. At this point, we proceeded to make a small infraumbilical midline incisions entering the peritoneal cavity. The cecum was then mobilized into the operative field. Approximately 5 cm on the anterior aspect of the cecum above the ileocecal valve, a pursestring stitch of 2-0 silk was placed on the tinea and a small colotomy was created. A 20-Fijian Negron catheter was then inserted through the right lower quadrant abdominal howe and passed into the colon, as a 2-0 silk stitch was tied snugly around the tubing of the catheter. A 6 mL of water was inflated into the Negron and a second pursestring of 2-0 silk was placed around the first to further imbricate the seromuscular wall of the colon around the catheter. We then retracted the cecum against the abdominal wall. An additional stitch was placed to seal the colon to the anterior abdominal wall and peritoneum. Operative field was then irrigated. Hemostasis achieved. We proceeded to close the fascia with a running #0 PDS and skin with shruthi. The patient was extubated and transported to recovery room. BLOOD LOSS: 5 mL. Ketan Jackson MD DNL/MODL /[id number]
[2019-09-21] VITALS (8 sets, daily range): BP systolic 160–177; BP diastolic 94–110
[2019-09-21] MEDS: D5.45%NS/KCL 20MEQ 1,000 ML IV SCH ×4 (00:01→16:10)
--- NOTE | 2019-09-21 00:15 | NUR ---
NEW ORDERS NOTED FROM DR. SOLIS, ALSO TO START GOLYTELY IN THE AM.
[2019-09-21] MEDS: LABETALOL HCL 5 MG/ML 20ML VIAL IV PRN ×5 (00:30→22:16)
[2019-09-21] MEDS: LORAZEPAM INJ 2 MG/ML VIAL IV PRN ×2 (00:39→08:57)
--- NOTE | 2019-09-21 00:47 | Progress Note ---
DATE: 09/20/2019 SUBJECTIVE: The patient underwent laparoscopic assisted ileostomy today. She has a Negron catheter in ileostomy opening. She is supposed to get a GoLYTELY through the ileostomy for evacuation of retained colonic stool. The GoLYTELY irrigation through the ileostomy has not been started yet. The patient stated that she will do it. She would allow this later on. REVIEW OF SYSTEMS: GENERAL: No fever or chills. CVS: No chest pain or palpitation. RESPIRATORY: No cough or expectoration. MEDICATIONS: Reviewed as per JUN. PHYSICAL EXAMINATION: VITAL SIGNS: Temperature 98.3, pulse 82, respirations 19, blood pressure 137/83, oxygen saturation 100% on room air. GENERAL: Appears to be in distress, lethargic, drowsy. HEENT: Oral mucosa is moist. ABDOMEN: Soft. Incisional tenderness. Negron catheter in the ileostomy. Bowel sounds very minimally present. No other mass or hernia. LABORATORY DATA: None drawn today. IMPRESSION: 1. Severe constipation, likely opioid induced. 2. Fecal retention and fecal impaction in sigmoid and rectosigmoid colon. PLAN: Postop care per surgery. Ileostomy to be used to for GoLYTELY to help flush out the retained stool in the colon. We will minimize the use of opioids. Consider giving Relistor for opioid induced constipation. Recommend also to use liquid senna to the ileostomy along with GoLYTELY. Domingo Rockwell MD SA/ABE /[id number]
[2019-09-21] MEDS: HYDROMORPHONE 1MG/1ML INJ IV PRN ×5 (03:23→20:14)
[2019-09-21] MEDS: OXYCODONE HCL IR 5 MG TAB PO PRN ×3 (05:38→22:20)
[2019-09-21] MEDS: LEVOTHYROXINE SODIUM 100 MCG TAB PO SCH (05:38)
[2019-09-21] MEDS: ONDANSETRON HCL INJ 2MG/ML 2ML 2 MG/ML VIAL IV PRN ×3 (05:46→20:14)
--- NOTE | 2019-09-21 06:52 | NUR ---
IM- progress note O/N see below ROS: unreliable v/s revd PE tired appearing anicteric ns1s2 mod bs soft nt nd; left groin dressing in place; site soft; nontender no edema skin dry flat affect labs/meds revd A/P: 58yoF Chest pain- plavix loading; f/u echo; LHC no intervention; medical mgmt; CAD with hx stents and CABG- f/u echo Hypertensive heart ds- cont BB HLD_ statin Hypothyroidism- TSH high; Noncompliance? restart med; check TFTs Anxiety d/o- use BZD Insomnia- temazepam Prop: ppi dispo: Abdominal wall hernia- tender- get CT; check labs; d/c planning; 5-31 CHronically incarcerated hernia- sx planned; 6- awaiting surgery for hernia 6-2 doing better; cont care; f/u labs; 6-3 check labs; d/c planning; 6-4 awaiting BM 6-5 cont bowel regimen; f/u surgery 6-6 f/u KUB; cont bowel reg 6-7 check renal fn 6-8 renal improving; await BM 6-9 d/w ; NPO at midnight, planned for sedation and colonic cleanout tomorrow for severe constipation 6-10 check labs; surgery pending; 6-11 GI consultation. 6-12 endoscopy pending; bowel prep; reduce narcotics; nicotine patch . 6-13 cont care. 6-14 pain controlled; endoscopy tomorrow; 6-15 f/u endoscopy- not done; surgery re-eval for mechanical disimpaction. 6-16 f/u CT abd/pelvis 6-17 awaiting surgical procedure for disimpaction 6-185 s/p lap cecostomy tube and fecal disimpaction; SNF eval; check labs; Julien Forbes MD, PhD.
--- NOTE | 2019-09-21 07:17 | NUR ---
REPORT GIVEN TO AM NURSE.
[2019-09-21] MEDS: FAMOTIDINE 20 MG/2 ML VIAL IV SCH ×2 (07:30→16:09)
--- NOTE | 2019-09-21 07:32 | NUR ---
attempted to remove bhardwaj catheter, patient complain of feeling nausea and wanted me to wait, informed am nurse.
--- NOTE | 2019-09-21 08:30 | NUR ---
INITIAL ASSESSMENT COMPLETE, FINE D/CD WITH TIP INTACT, PT WILL BE DTV, C/O PAIN IN ABD, DRESSINGS CDI TO ABDOMEN, SCDS ON PT, VS STABLE, STATES MEDICATIONS ARE NOT WORKING, DR HEART WILL NOT CHANGE HER MEDS, CONTINUES TO ASK FOR ALL AVAILABLE MEDS, CALL LIGHT IN REACH
--- NOTE | 2019-09-21 08:55 | NUR ---
CALL TO DR HEART. PT DOES NOT MEET SNF CRITERIA. LEFT MESSAGE W CONTACT INFO.
[2019-09-21] MEDS: AMLODIPINE BESYLATE 5 MG TAB PO SCH (08:58)
[2019-09-21] MEDS: METOPROLOL SUCCINATE 25 MG TAB XL PO SCH (08:58)
[2019-09-21] MEDS: ASPIRIN 81 MG ENTERIC COATED PO SCH (08:58)
[2019-09-21 09:00] LABS: BASOPHILS % 0.6 % (0.0-1.0); EOSINOPHILS % 0.3 % (0.0-6.0); HEMATOCRIT 33.7 % (34.2-44.1); HEMOGLOBIN 11.3 g/dL (12.0-16.0); LYMPHOCYTES # (AUTO) 0.8 (1.0-3.2); LYMPHOCYTES % 12.7 % (18.0-39.1); MEAN CORPUSCULAR HEMOGLOBIN 31.7 pg (28-32); MEAN CORPUSCULAR HGB CONC 33.5 g/dL (31-35); MEAN CORPUSCULAR VOLUME 94.4 fL (81-99); MONOCYTES # (AUTO) 0.4 (0.2-0.8); NEUTROPHILS # (AUTO) 5.3 (2.1-6.9); NEUTROPHILS % 80.1 % (38.7-80.0); RED BLOOD COUNT 3.57 x10e6/uL (3.6-5.1); RED CELL DISTRIBUTION WIDTH 13.7 % (11.7-14.4)
[2019-09-21 09:02] LABS: ANION GAP 13.6 mmol/L (8-16); BLOOD UREA NITROGEN 7 mg/dL (7-26); BUN/CREATININE RATIO 10 (6-25); CALCIUM 8.7 mg/dL (8.4-10.2); CARBON DIOXIDE 20 mmol/L (22-29); CHLORIDE 105 mmol/L (98-107); CREATININE, SERUM 0.73 mg/dL (0.57-1.11); EST GLOMERULAR FILTRATION RATE > 60 ML/MIN (60-); GLUCOSE 128 mg/dL (74-118); POTASSIUM 3.6 mmol/L (3.5-5.1); SODIUM 135 mmol/L (136-145)
--- NOTE | 2019-09-21 09:10 | NUR ---
Pt sleeping soundly and no family present. Movie Stunt Performer left a card reminding pt of availability of cook ship and instructions on how to contact a cook ship. MARIVEL SALES Movie Stunt Performer Spiritual Care Department O: [phone]
--- NOTE | 2019-09-21 09:11 | NUR ---
RECEIVED SNF ORDER, REVIEWED WITH CM, NO CRITERIA, NO ABX OR PHYSICAL THERAPY, UNABLE TO PROCEED WITH ORDER, CM WILL CONTACT PHYSICIAN.
[2019-09-21 09:25] LABS: MAGNESIUM 1.4 MG/DL (1.3-2.1)
--- NOTE | 2019-09-21 09:45 | NUR ---
DR SOLIS HERE TO SEE PT, WILL START GO LYTE LY AT 20CC/HR, IMMEDIATELY STARTED YELLING AND CRYING IN PAIN ONCE 4 CC HAD INFUSED, STOPPED GO LYTE LY TILL PAIN MEDICATIONS DUE.
[2019-09-21] MEDS ORDERED: PEG (High)/E-LYTE SOLN 4,000 ML BTL JT SCH (10:00)
[2019-09-21 10:26] LABS: PHOSPHORUS 2.4 MG/DL (2.3-4.7)
--- NOTE | 2019-09-21 11:00 | NUR ---
PT UP TO BSC, CONTINUES TO COMPLAIN OF NOT ENOUGH PAIN MEDS, WILL CONTINUE TO MONITOR
--- NOTE | 2019-09-21 12:00 | NUR ---
PT MEDICATED FOR PAIN, PT IS ASLEEP, RESTARTED GO LYTE LY, NO CRYING OUT IN PAIN OR SCREAMING, PT SLEEPING, CONTINUE TO MONITOR,
[2019-09-21 12:02] LABS: PLATELET COUNT 227 x10e3/uL (140-360)
--- NOTE | 2019-09-21 12:45 | NUR ---
DR. HEART STATES IF THE PT DOES NOT MEET SNF CRITERIA HE WOULD LIKE TO KEEP HER INPT FOR A FEW DAYS. DID NOT ORDER HOME HEALTH AT THIS TIME. PT HAS NEW ILEOSTOMY W LAVAGE.
--- NOTE | 2019-09-21 15:00 | NUR ---
PT IN BED, UP TO BSC, AND BACK TO BED, CONTINUE TO RECEIVE GO LYTE LY, CONTINUE TO MONITOR
--- NOTE | 2019-09-21 17:00 | NUR ---
DR SOLIS CALLED TO CHECK ON PT, TOLD ABOUT STOPPING GO LYTE LY PER PT REQUEST, SAID TO START AGAIN WHEN WE CAN, ALSO AWARE OF PAIN MEDICATIONS COMPLAINTS
[2019-09-21] MEDS: PROMETHAZINE 12.5MG/ NACL 0.9% 12.5 MG/50 ML BAG IV PRN (17:32)
--- NOTE | 2019-09-21 18:10 | NUR ---
PT ASLEEP, CALL LIGHT IN REACH
--- NOTE | 2019-09-21 19:20 | NUR ---
Received patient awake, not in distress, call light within reach, advised to call for assistance anytime when needed
[2019-09-21] MEDS: ATORVASTATIN 40 MG TAB PO SCH (20:14)
[2019-09-21] MEDS: DIAZEPAM 5 MG TAB PO PRN (20:15)
--- NOTE | 2019-09-21 22:16 | Progress Note ---
DATE: 09/21/2019 GI Progress Report SUBJECTIVE: The patient got some amount of GoLYTELY through cecostomy tube yesterday. She continues to get opioids around the clock either oxycodone or hydromorphone intravenously. She has started having some gurgling in the lower abdomen. She also passed some flatus. No bowel movement today. REVIEW OF SYSTEMS: GENERAL: No fever or chills. Complains about pain all over all the time. CVS: No chest pain or palpitation. RESPIRATORY: No cough or expectoration. MEDICATIONS: Reviewed as per JUN. She is on diazepam 5 mg p.o. q.8 hours as needed, hydromorphone 1 mg IV q.4 hours as needed, Zofran 4 mg IV q.6 hours as needed, atorvastatin 80 mg p.o. at bedtime, famotidine 20 mg IV twice daily, labetalol 5 mg IV q.2 hours as needed, oxycodone 10 mg p.o. q.6 hours as needed, GoLYTELY 2000 mL through the cecostomy, amlodipine 5 mg p.o. daily, metoprolol 12.5 mg p.o. daily, aspirin 81 mg p.o. daily, lorazepam 1 mg IV q.8 hours as needed, levothyroxine 200 mcg p.o. daily, acetaminophen 650 mg p.o. q.6 hours as needed, lactulose 20 g p.o. b.i.d. p.r.n., and docusate 100 mg p.o. b.i.d. p.r.n. PHYSICAL EXAMINATION: VITAL SIGNS: Temperature 98.6, pulse 98, respirations 22, blood pressure 173/95, and oxygen saturation 99% on room air. GENERAL: Appears to be in some distress, lethargic, and drowsy. HEENT: Oral mucosa is moist. ABDOMEN: Incisional tenderness at the right lower quadrant. Negron's catheter in cecostomy. Bowel sounds minimally present. No rebound, rigidity, or guarding. No palpable mass or hernia. LABORATORY DATA: WBC 6.55, hemoglobin 11.3, hematocrit 33.7, MCV 94.4, and platelet count 227. Sodium 135, potassium 3.6, chloride 105, bicarb 20, BUN 7, creatinine 0.73, and glucose 128. IMPRESSION: 1. Severe constipation, opioid-induced. 2. Fecal retention and fecal impaction in sigmoid and rectosigmoid colon. 3. Status post cecostomy for delivery of GoLYTELY. PLAN: I suggested the patient to get enema, however, she refused. I also encouraged her to allow nurses to get GoLYTELY running through cecostomy. The patient also has a reservation about this. Very difficult situation. She continues to take opioids around the clock. I hope that she starts having some bowel movement, as she passed some flatus today. Rest of the care as per Dr. Jackson. Domingo Rockwell MD SA/ABE /[id number]
--- NOTE | 2019-09-21 22:30 | NUR ---
Patient agreed to restart the golytely at 10ml/hr
[2019-09-22] VITALS (8 sets, daily range): BP systolic 141–173; BP diastolic 94–113
[2019-09-22] MEDS: HYDROMORPHONE 1MG/1ML INJ IV PRN ×6 (00:20→23:29)
[2019-09-22] MEDS: PROMETHAZINE 12.5MG/ NACL 0.9% 12.5 MG/50 ML BAG IV PRN ×3 (00:20→22:48)
[2019-09-22] MEDS: D5.45%NS/KCL 20MEQ 1,000 ML IV SCH ×4 (00:26→21:26)
[2019-09-22] MEDS: LORAZEPAM INJ 2 MG/ML VIAL IV PRN ×3 (01:43→21:22)
[2019-09-22] MEDS: LABETALOL HCL 5 MG/ML 20ML VIAL IV PRN ×4 (01:43→15:45)
[2019-09-22] MEDS: ONDANSETRON HCL INJ 2MG/ML 2ML 2 MG/ML VIAL IV PRN ×2 (04:04→18:45)
[2019-09-22] MEDS: OXYCODONE HCL IR 5 MG TAB PO PRN ×2 (05:12→15:28)
[2019-09-22] MEDS: LEVOTHYROXINE SODIUM 100 MCG TAB PO SCH (05:13)
--- NOTE | 2019-09-22 07:13 | NUR ---
walking rounds done with landon RN, call light within reach
--- NOTE | 2019-09-22 07:15 | NUR ---
WALKING ROUNDS COMPLETED.
[2019-09-22] MEDS: FAMOTIDINE 20 MG/2 ML VIAL IV SCH ×2 (07:30→16:30)
--- NOTE | 2019-09-22 08:00 | NUR ---
PT STATES DR SOLIS MADE ROUNDS AT 0530 THIS MORNING
[2019-09-22] MEDS: ASPIRIN 81 MG ENTERIC COATED PO SCH (08:36)
[2019-09-22] MEDS: AMLODIPINE BESYLATE 5 MG TAB PO SCH (08:36)
[2019-09-22] MEDS: METOPROLOL SUCCINATE 25 MG TAB XL PO SCH (08:37)
--- NOTE | 2019-09-22 09:02 | NUR ---
IM- progress note O/N see below ROS: unreliable v/s revd PE tired appearing anicteric ns1s2 mod bs soft nt nd; left groin dressing in place; site soft; nontender no edema skin dry flat affect labs/meds revd A/P: 58yoF Chest pain- plavix loading; f/u echo; LHC no intervention; medical mgmt; CAD with hx stents and CABG- f/u echo Hypertensive heart ds- cont BB HLD_ statin Hypothyroidism- TSH high; Noncompliance? restart med; check TFTs Anxiety d/o- use BZD Insomnia- temazepam Prop: ppi dispo: Abdominal wall hernia- tender- get CT; check labs; d/c planning; 09-02 CHronically incarcerated hernia- sx planned; 6- awaiting surgery for hernia 6-2 doing better; cont care; f/u labs; 6-3 check labs; d/c planning; 6-4 awaiting BM 6-5 cont bowel regimen; f/u surgery 6-6 f/u KUB; cont bowel reg 6-7 check renal fn 6-8 renal improving; await BM 6-9 d/w ; NPO at midnight, planned for sedation and colonic cleanout tomorrow for severe constipation 6-10 check labs; surgery pending; 6-11 GI consultation. 6-12 endoscopy pending; bowel prep; reduce narcotics; nicotine patch . 6-13 cont care. 6-14 pain controlled; endoscopy tomorrow; 6-15 f/u endoscopy- not done; surgery re-eval for mechanical disimpaction. 6-16 f/[address] CT abd/pelvis 6-17 awaiting surgical procedure for disimpaction 6-18 s/p lap cecostomy tube and fecal disimpaction; SNF eval; check labs; 6-19 Golytely 10cc/hr via cecostomy; Julien Forbes MD, PhD.
--- NOTE | 2019-09-22 12:00 | NUR ---
PT MEDICATED EARLIER PAIN 09/12 NOW
--- NOTE | 2019-09-22 12:24 | NUR ---
Pt declined visit at this time due to pain. Will continue to follow as able. [employer] Spiritual Care Department O: [phone]
--- NOTE | 2019-09-22 15:46 | NUR ---
Nutrition Intervention Note RD Recommendation(s) for Physician: -Recommend advancing diet to GI soft as medically appropriate -If diet is unable to be advanced, consider alternative means of nutrition - Ensure clear with meals as tolerated for added nutrition while on clear liquid diet The patient meets criteria for unspecified SEVERE protein-calorie malnutrition. Plan of Care: RD following, monitoring for tolerance and adequacy, oral supplement recommendation Nutrition reason for involvement: follow up RD Assessment: 09/21: Follow up. Pt has been NPO/clear liquid diet since 09/13 (8 days). Pt reported she has not been consuming much of her liquid diet and is trying to consume the Ensure clear nutrition supplements provided. Pt reports nausea and pain at time of visit. No BM recorded but pt is having flatus. Will continue to monitor. 09/19: Follow up. Pt had a procedure today (lap assisted irrigation tube placement). Pt was advanced to a clear liquid diet this afternoon. Pt has been NPO/clear liquid diet since 09/13. Recommend Ensure clear with meals as tolerated. Pts abdomen remains large, distended, and tender per documentation. No BM recorded. Will continue to monitor. 09/14: Follow up. Pt is currently NPO. Pt had a disimpaction on 09/13, but is still waiting to have a BM as discussed in interdisciplinary rounds. It is documented that pts abdomen remains large, distended, and tender. Will continue to monitor. 09/10: Follow up. Pt eating dinner at time of visit, reports tolerating well and eating 50% of meals. Pt reports drinking Ensure BID, receptive to increasing to TID- RD to order. Pt continues with no BM, she reports MD aware. Noted abdominal rounded and distended. All questions and concerns addressed at time of visit. Chart reviewed. Will continue to monitor. 09/05: Follow up. Pt had a procedure regarding lysis of adhesion and repair of incarcerated ventral hernia on 09/03. Pt stated she is still eating <50% of her meals. Pt is awaiting to have a BM per RN. Pt reports some nausea and stated she had vomited yesterday. Pt is drinking Ensure nutrition supplements. Will continue to monitor. (09/01/19) Pt is a 58 year old female admitted with chest pain. Pt stated she is having N/V and unable to tolerate her meals today. Pt reports eating < 50% of meals for the past couple of weeks. Pt also reported she had unintentionally lost weight and used to weigh 159 lbs 6 months ago. Pt currently has a weight of 135 lbs in chart. This would be a 15% weight loss in 6 months which is considered significant weight loss. Pt was interested in a nutrition supplement. Recommend Ensure Enlive BID for added nutrition. Will continue to monitor. Principal Problems/Diagnoses: chest pain PMH: CAD, status post CABG, hyperlipidemia, repeated pancreatitis, chronic back pain and anxiety GI: pt is awaiting to have a BM, soft abdomen, flatus + Skin: intact Labs:09/21: Na 135, K 3.6, BUN 7, Cr 0.73, Glu 128 09/19: Na 140, K 4.0, Cr 0.82, Glu 83 09/12: Na 138, K 4.2, BUN 23, Cr 0.79, Glu 81 09/09: Na 138, K 4.3, BUN 30, Cr 0.87, Gluc 90, Ca 9.5 09/05: Na 137, K 4.8, BUN 21, Cr 1.32, Ca 9.6 (08/31) Na 141, K 3,1, BUN 13, Cr 0.99, Glu 79, Ca 8.5 Meds: dilaudid, pepcid, levothyroxine, zofran, lactulose, colace Ht: 63 inches Wt: 141 lbs (09/18) 135 lbs (08/30) BMI: 25.0 kg/m2 IBW: 115 lbs Malnutrition Evaluation (09/01/19) The patient meets criteria for unspecified SEVERE protein-calorie malnutrition. Energy intake: <50% of estimated energy requirements for >5 days Weight loss: >10% in 6 months (Chronic) Fat loss: no loss identified Muscle loss: no loss identified Supporting Evidence: Fluid accumulation: no edema per MD note Functional Status: unable to evaluate Nutrition Prescription (Diet Order): clear liquids Estimated Nutritional Needs: 0187-8481 calories/day (25-35 kcal/kg CBW) Weight used: 135 lbs 61-92 g protein/day (1-1.5 g pro/kg CBW) Weight used: 135 lbs Diet Adequacy: Not meeting calorie needs, not meeting protein needs Tolerance: pt reports nausea and pain Diet Education Needs Assessment: Pt declined need for diet education materials on 08/31 Nutrition Care Level: high Nutrition Diagnosis: Severe malnutrition related to medical status as evidenced by pt meeting < 50% of estimated energy needs for > 5 days and >10% weight loss in 6 months. Goal: Patient will meet 75-100% of estimated needs by follow up Progress: not progressing Interventions: -fiber- modified diet, Commercial beverage Monitoring/Evaluation: -Total energy intake, Total protein intake, Modified diet, Liquid supplement, Weight change Signed: Ria Martinez RD, LD
[2019-09-22] MEDS: DIAZEPAM 5 MG TAB PO PRN (15:50)
--- NOTE | 2019-09-22 16:30 | NUR ---
DR HEART MADE ROUNDS EARLIER NO NEW ORDERS
--- NOTE | 2019-09-22 18:45 | NUR ---
PT MEDICATED WITH DILAUDID AND ZOFRAN AT THIS TIME. NO OTHER CHANGES AT THIS TIME. REPORT GIVEN TO ON COMING NURSE
[2019-09-22] MEDS: ATORVASTATIN 40 MG TAB PO SCH (19:58)
[2019-09-23] VITALS (8 sets, daily range): BP systolic 148–168; BP diastolic 88–107
--- NOTE | 2019-09-23 00:23 | NUR ---
CALLED AND SPOKE TO DR SOLIS, PATIENT HAS LEAKAGE TO THE CECOSTOMY TUBE, PATIENT ASKED TO BE OFF FROM THE GOLITELY DRIP. DR SOLIS AWARE AND ORDERED TO STOP THE DRIP.
[2019-09-23] MEDS: OXYCODONE HCL IR 5 MG TAB PO PRN ×3 (02:03→14:22)
[2019-09-23] MEDS: ONDANSETRON HCL INJ 2MG/ML 2ML 2 MG/ML VIAL IV PRN ×3 (04:20→16:16)
[2019-09-23] MEDS: HYDROMORPHONE 1MG/1ML INJ IV PRN ×4 (04:20→20:40)
[2019-09-23] MEDS: LORAZEPAM INJ 2 MG/ML VIAL IV PRN ×3 (05:59→22:45)
[2019-09-23] MEDS: LEVOTHYROXINE SODIUM 100 MCG TAB PO SCH (05:59)
[2019-09-23] MEDS: D5.45%NS/KCL 20MEQ 1,000 ML IV SCH ×2 (06:49→16:20)
--- NOTE | 2019-09-23 07:00 | NUR ---
received bedside report. pt is alert resting in bed, no s/s of distress. pt is agitated and expresses her concerns from previous night, pt is reassured. call light within reach and instructed pt to call RN for help. pt is requesting pain meds, will check MAR
--- NOTE | 2019-09-23 07:30 | NUR ---
pt ambulated in the hallway with walker, no s/s of distress noted. RN provided standby assistance PRN
[2019-09-23] MEDS: DIAZEPAM 5 MG TAB PO PRN ×2 (08:38→18:33)
[2019-09-23] MEDS: METOPROLOL SUCCINATE 25 MG TAB XL PO SCH (08:39)
[2019-09-23] MEDS: FAMOTIDINE 20 MG/2 ML VIAL IV SCH ×2 (08:39→16:20)
[2019-09-23] MEDS: ASPIRIN 81 MG ENTERIC COATED PO SCH (08:39)
[2019-09-23] MEDS: AMLODIPINE BESYLATE 5 MG TAB PO SCH (08:39)
--- NOTE | 2019-09-23 12:11 | NUR ---
IM- progress note O/N see below ROS: unreliable v/s revd PE tired appearing anicteric ns1s2 mod bs soft nt nd; left groin dressing in place; site soft; nontender no edema skin dry flat affect labs/meds revd A/P: 58yoF Chest pain- plavix loading; f/u echo; LHC no intervention; medical mgmt; CAD with hx stents and CABG- f/u echo Hypertensive heart ds- cont BB HLD_ statin Hypothyroidism- TSH high; Noncompliance? restart med; check TFTs Anxiety d/o- use BZD Insomnia- temazepam Prop: ppi dispo: Abdominal wall hernia- tender- get CT; check labs; d/c planning; 5 CHronically incarcerated hernia- sx planned; 6- awaiting surgery for hernia 6-2 doing better; cont care; f/u labs; 6-3 check labs; d/c planning; 6-4 awaiting BM 6-5 cont bowel regimen; f/u surgery 6-6 f/u KUB; cont bowel reg 6-7 check renal fn 6-8 renal improving; await BM 6-9 d/w ; NPO at midnight, planned for sedation and colonic cleanout tomorrow for severe constipation 6-10 check labs; surgery pending; 6-11 GI consultation. 6-12 endoscopy pending; bowel prep; reduce narcotics; nicotine patch . 6-13 cont care. 6-14 pain controlled; endoscopy tomorrow; 6-15 f/u endoscopy- not done; surgery re-eval for mechanical disimpaction. 6-16 f/[address] abd/pelvis 6-17 awaiting surgical procedure for disimpaction 6-18 s/p lap cecostomy tube and fecal disimpaction; SNF eval; check labs; 6-19 Golytely 10cc/hr via cecostomy; 6-20 Julien Forbes MD, PhD.
--- NOTE | 2019-09-23 15:30 | NUR ---
Dr. Mosher at the bedside, no new orders received
--- NOTE | 2019-09-23 19:05 | NUR ---
Bedside rounds completed with morning nurse. Pt lying in bed HOB 45 degrees. Pt c/o abd pain and spams, previously medicated. PEG tube in place, Colyte running @20ml . Call light within reach.
--- NOTE | 2019-09-23 20:15 | NUR ---
Dr. Andrei sung, no further orders.
[2019-09-23] MEDS: ATORVASTATIN 40 MG TAB PO SCH (21:00)
[2019-09-23] MEDS: PROMETHAZINE 12.5MG/ NACL 0.9% 12.5 MG/50 ML BAG IV PRN (21:50)
[2019-09-24] VITALS (8 sets, daily range): BP systolic 121–166; BP diastolic 86–103
[2019-09-24] MEDS: DIAZEPAM 5 MG TAB PO PRN ×4 (00:30→19:35)
[2019-09-24] MEDS: OXYCODONE HCL IR 5 MG TAB PO PRN ×4 (00:30→14:22)
--- NOTE | 2019-09-24 00:35 | NUR ---
Pt crying, grimacing, and guarding abdomen. Pt states, "something is wrong with the surgery. I'm hurting too much." BP 149/91, HR 95, RR 20, O2 sat 97% on RA. Pt c/o RUQ abdominal pain and back pain. Spoke with surgeon Dr. Jackson, ordered to stop Colyte continuos irrigation in PEG tube. PEG tube in place, drgs C/D/I. No further orders. Will continue to monitor.
[2019-09-24] MEDS: HYDROMORPHONE 1MG/1ML INJ IV PRN ×4 (01:28→22:25)
[2019-09-24] MEDS: D5.45%NS/KCL 20MEQ 1,000 ML IV SCH ×3 (04:20→18:57)
[2019-09-24] MEDS: LEVOTHYROXINE SODIUM 100 MCG TAB PO SCH (06:00)
[2019-09-24] MEDS: LORAZEPAM INJ 2 MG/ML VIAL IV PRN ×2 (06:50→15:31)
--- NOTE | 2019-09-24 06:50 | NUR ---
Pt c/o 11/12 abdominal pain and spasms. medicated with Dilaudid and Ativan prn. Gave warm compress for abdomen. Flatulence noted. Call light within reach.
[2019-09-24] MEDS: ASPIRIN 81 MG ENTERIC COATED PO SCH (08:46)
[2019-09-24] MEDS: FAMOTIDINE 20 MG/2 ML VIAL IV SCH ×2 (08:46→15:32)
[2019-09-24] MEDS: AMLODIPINE BESYLATE 5 MG TAB PO SCH ×2 (08:53→12:00)
[2019-09-24] MEDS: METOPROLOL SUCCINATE 25 MG TAB XL PO SCH ×2 (08:53→12:00)
--- NOTE | 2019-09-24 10:00 | NUR ---
SMALL AMOUNT OF LIGHT BROWN DRAINAGE NOTED TO DRESSING. REFUSES TO HAVE DRESSING CHANGED AT THIS TIME. STATES "DRESSING WAS CHANGED THIS MORNING."
--- NOTE | 2019-09-24 10:15 | Diagnostic Imaging Report ---
Abdomen/KUB INDICATION: ^abdominal pain and constipation COMPARISON: CT abdomen/pelvis 09/19/2019, abdomen x-ray 09/11/2019. FINDINGS: Portable, supine image obtained at 0956 hours. Medical Devices: Median sternotomy wires and mediastinal vascular clips are stable. Cholecystectomy clips in the right upper quadrant. Pedicle screws and vertical stabilizing bars in the lumbar spine appear intact. There are midline abdominal wall shruthi. Bowel: Formed stool in the ascending colon and hepatic flexure. No evidence of stool in the descending colon or rectum. There is gaseous distention of the transverse colon and splenic flexure of the colon. No dilated small bowel loops or pneumatosis. Free air: None Abdominal calcifications: None over the renal shadows or along the expected course of the ureters. Bilateral subcutaneous calcifications in the posterior pelvis are redemonstrated. Organomegaly: None Lung bases: Mild left basilar atelectasis. Bones: No focal osseous lesions. IMPRESSION: Moderate stool burden in the right colon with gaseous distention of the transverse colon and splenic flexure. No dilated small bowel loops. Signed by: Dr. Jessica Nunez MD on 09/24/2019 10:11 AM
--- NOTE | 2019-09-24 10:30 | NUR ---
Patient states "I want to speak to all my doctors at the same time." Informed patient doctors come at different times due to clinic hours. Patient voiced understanding and states " I understand, but I want to talk to them at the same time" Notified My RN with case management and notified .
[2019-09-24] MEDS ORDERED: SOD PHOSPHATE/SOD BIPHOSPHATE ENEMA 132 ML BTL PR ONE (11:00)
[2019-09-24] MEDS: METHYLNALTREXONE BROMIDE 12 MG/0.6 ML VIAL SQ SCH (11:00)
--- NOTE | 2019-09-24 11:05 | NUR ---
Offered to change dressing around drainage site. Patient refuses to have dressing changed at this time. Instructed patient to call when she is ready. Voiced understanding.
--- NOTE | 2019-09-24 13:09 | NUR ---
aware patient requesting conference with all the doctors. states "I will see her tomorrow"
--- NOTE | 2019-09-24 13:19 | NUR ---
Notified that patient wants a conference with all the doctors at the same time. Dr. Brown states "I will notify of message"
[2019-09-24] MEDS ORDERED: MINERAL OIL 16OZ PO ONE (15:00)
--- NOTE | 2019-09-24 15:00 | NUR ---
Pt refused relistor. Pt was asked if she was ready for soap suds enema. Pt states she wants to wait since she only had fleets enema an hour ago.
--- NOTE | 2019-09-24 17:30 | NUR ---
Pt received mineral oil as ordered by physician. Pt is still refusing soap suds enema at this point. Pt states she wants to wait if mineral oil will work.
--- NOTE | 2019-09-24 18:00 | NUR ---
Dr. Forbes here to see pt and ordered for pt to be NPO after midnight for surgery scheduled for Wednesday. No orders for informed consent at this time. Waiting for Dr. Jackson to discuss surgery with patient.
--- NOTE | 2019-09-24 19:10 | NUR ---
Completed bedside shift report with morning nurse. Pt alert and oriented to name lying in bed HOB 45 degrees. Pt c/o severe abdominal pain. Call light within reach. Bed low and locked.
--- NOTE | 2019-09-24 19:35 | NUR ---
Pt received Oxycodone prn for abdominal pain and Valium. Pt refused soap suds enema.
[2019-09-24 20:13] LABS: FREE T4 (FREE THYROXINE) 1.62 ng/dL (0.8-1.8); THYROID STIMULATING HORMONE 0.409 uIU/mL (0.350-4.940)
[2019-09-24] MEDS: ATORVASTATIN 40 MG TAB PO SCH (22:00)
[2019-09-24] MEDS: PROMETHAZINE 12.5MG/ NACL 0.9% 12.5 MG/50 ML BAG IV PRN (22:25)
[2019-09-25] VITALS (9 sets, daily range): BP systolic 121–169; BP diastolic 78–109
[2019-09-25] MEDS: ATORVASTATIN 40 MG TAB PO SCH
[2019-09-25] MEDS: LORAZEPAM INJ 2 MG/ML VIAL IV PRN ×3 (01:31→19:49)
[2019-09-25] MEDS: D5.45%NS/KCL 20MEQ 1,000 ML IV SCH ×3 (01:43→23:40)
[2019-09-25] MEDS: HYDROMORPHONE 1MG/1ML INJ IV PRN ×5 (03:25→23:51)
[2019-09-25] MEDS: LEVOTHYROXINE SODIUM 100 MCG TAB PO SCH (06:00)
--- NOTE | 2019-09-25 06:44 | NUR ---
RECEIVED BEDSIDE SHIFT REPORT FROM OFF GOING NURSE. PATIENT IS RESTING IN BED. CALL LIGHT WITHIN REACH. BED IN THE LOWEST POSITION. BED ALARM ON.
[2019-09-25] MEDS: FAMOTIDINE 20 MG/2 ML VIAL IV SCH ×2 (07:30→16:50)
[2019-09-25] MEDS: ONDANSETRON HCL INJ 2MG/ML 2ML 2 MG/ML VIAL IV PRN ×2 (07:30→17:38)
[2019-09-25] MEDS: METOPROLOL SUCCINATE 25 MG TAB XL PO SCH (07:47)
[2019-09-25] MEDS: AMLODIPINE BESYLATE 5 MG TAB PO SCH (07:47)
[2019-09-25] MEDS: ASPIRIN 81 MG ENTERIC COATED PO SCH (07:47)
--- NOTE | 2019-09-25 10:06 | NUR ---
PATIENT OFF UNIT TO OR AT THIS TIME.
[2019-09-25] MEDS ORDERED: CEFOXITIN 1GM/ D5W 50ML 100 ML IV ONE (10:30)
[2019-09-25] MEDS ORDERED: HYDROMORPHONE 2MG/ML 2 MG/ML ML ONE (12:50)
[2019-09-25] MEDS: SODIUM CHLORIDE 0.9% 250ML IRRIG IR SCH ×3 (13:20→23:40)
--- NOTE | 2019-09-25 13:20 | NUR ---
PATIENT BACK TO ROOM AT 1315, PATIENT IS IN STABLE CONDITION. IV FLUIDS CONNECTED. NO S/S OF PAIN NOTED AT THIS TIME. NG TUBE NOTED TO LEFT NARE, IRRIGATED AND CONNECTED TO LOW CONTINUOUS SUCTION ORDERED. CALL LIGHT WITHIN REACH. BED IN THE LOWEST POSITION. AT BEDSIDE.
[2019-09-25] MEDS ORDERED: ONDANSETRON HCL INJ 2MG/ML 2ML 2 MG/ML VIAL ONE (14:41)
[2019-09-25] MEDS ORDERED: ETOMIDATE 2 MG/ML 10 ML INJ IV ONE (14:41)
[2019-09-25] MEDS ORDERED: SEVOFLURANE INHAL SOLN 250 ML PEN BTL ONE (14:41)
[2019-09-25] MEDS ORDERED: NEOSTIGMINE 1 MG/ML 10ML VIAL ONE (14:41)
[2019-09-25] MEDS ORDERED: ROCURONIUM BROMIDE 10 MG/ML 5ML VIAL IV ONE (14:41)
[2019-09-25] MEDS ORDERED: GLYCOPYRROLATE INJ 0.2 MG/ML VIAL ONE (14:41)
[2019-09-25] MEDS ORDERED: LIDOCAINE HCL 2% LOCAL INJ 5 ML SDV VIAL INJ ONE (14:41)
[2019-09-25] MEDS ORDERED: ACETAMINOPHEN 1000 MG/100 ML IV ONE (14:41)
--- NOTE | 2019-09-25 14:42 | Operative Report ---
DATE OF PROCEDURE: 09/25/2019 SURGEON: Ketan Jackson MD PREOPERATIVE DIAGNOSIS: Severe fecal impaction, right colon. POSTOPERATIVE DIAGNOSIS: Severe fecal impaction, right colon. OPERATIVE PROCEDURE: Right colectomy. ANESTHESIA: General. INDICATION: The patient is a 58-year-old female with history of chronic constipation from narcotics and chronic pain syndrome. The patient has exhausted all conservative measures including placement of cecostomy tube for GoLYTELY flushing without result. The patient complained of increased abdominal pain with CT scan repeated show persistent right colonic fecal impaction with gas in the left colon with redundancy of the colon. The patient consented for right colectomy. Attendant risks have been discussed. PROCEDURE FINDING: Severe fecal impaction of the right colon up to mid transverse colon with dilation of the ileum. DESCRIPTION OF PROCEDURE: The patient was brought to the OR and intubated. The abdomen was prepped and draped in sterile fashion. I did a rectal exam prior to prepping the patient's, which show empty rectal vault. We then made a midline incisions extending to the linea alba entering the peritoneal cavity. Prior cecostomy tube is visualized. No evidence of leakage around the tube, which is adherent to the abdominal wall between the cecum and the peritoneal lining. Palpation of the colon reveals emptiness of the left colon with severe fecal impaction up to the mid transverse colon and right colon with dilation of the terminal ileum. We proceeded to divide the midtransverse colon with the SVEN stapler and the mesentery to the right colon was taken with the LigaSure instrument, taking down the hepatic flexure, in the process. The cecostomy tube was removed and the cecostomy opening is temporary closed with clamps. The terminal ileum was also mobilized and transected with a SVEN stapler approximately 15 cm from the ileocecal valve and the mesenteric defect to the rest of the right colon was controlled with clamps and the ileocolic vessel is controlled with stitch tie of 2-0 silk. Specimen was removed from the operative field. Hemostasis was achieved. We then proceeded to perform an ileocolonic anastomosis with a SVEN stapler and TL-60 instrument. The mesenteric defect also closed with interrupted 2-0 silk stitches. Operative field was irrigated with copious saline solution. Hemostasis was achieved. The fascia in the midline closed with running #0 PDS and skin with shruthi. The patient tolerated the procedure, was extubated and transported to recovery room. Blood loss was 20 mL. MD HAWA Parrish/ABE /[id number]
[2019-09-25] MEDS: PROMETHAZINE 12.5MG/ NACL 0.9% 12.5 MG/50 ML BAG IV PRN ×2 (15:15→23:51)
--- NOTE | 2019-09-25 15:19 | NUR ---
IM- progress note O/N see below ROS: unreliable v/s revd PE tired appearing anicteric ns1s2 mod bs soft nt nd; left groin dressing in place; site soft; nontender no edema skin dry flat affect labs/meds revd A/P: 58yoF Chest pain- plavix loading; f/u echo; LHC no intervention; medical mgmt; CAD with hx stents and CABG- f/u echo Hypertensive heart ds- cont BB HLD_ statin Hypothyroidism- TSH high; Noncompliance? restart med; check TFTs Anxiety d/o- use BZD Insomnia- temazepam Prop: ppi dispo: Abdominal wall hernia- tender- get CT; check labs; d/c planning; 09-02 CHronically incarcerated hernia- sx planned; 6- awaiting surgery for hernia 6-2 doing better; cont care; f/u labs; 6-3 check labs; d/c planning; 6-4 awaiting BM 6-5 cont bowel regimen; f/u surgery 6-6 f/u KUB; cont bowel reg 6-7 check renal fn 6-8 renal improving; await BM 6-9 d/w ; NPO at midnight, planned for sedation and colonic cleanout tomorrow for severe constipation 6-10 check labs; surgery pending; 6-11 GI consultation. 6-12 endoscopy pending; bowel prep; reduce narcotics; nicotine patch . 6-13 cont care. 6-14 pain controlled; endoscopy tomorrow; 6-15 f/u endoscopy- not done; surgery re-eval for mechanical disimpaction. 6-16 f/[address] abd/pelvis 6-17 awaiting surgical procedure for disimpaction 6-18 s/p lap cecostomy tube and fecal disimpaction; SNF eval; check labs; 6-19 Golytely 10cc/hr via cecostomy; 6-20cont care; 6-21 d/w Emma: may need ex lap with colostomy and fecal evacuation, as still no BM. Pt agrees to surgery; 6-22 sx today.s/p right hemicolectomy; cont pain control Julien Forbes MD, PhD.
[2019-09-25] MEDS: CEFOXITIN SOD 1 GM in SODIUM CHLORIDE 0.9% 50ML 50 ML IV SCH ×3 (16:50)
[2019-09-25] MEDS ORDERED: CEFOXITIN 1GM/ D5W 50ML 50 ML IV SCH (17:00)
[2019-09-25] MEDS: OXYCODONE HCL IR 5 MG TAB PO PRN (17:30)
--- NOTE | 2019-09-25 17:53 | NUR ---
Nutrition Intervention Note RD Recommendation(s) for Physician: -Recommend advancing diet to GI soft as medically appropriate with Ensure with meals -If diet is unable to be advanced, consider alternative means of nutrition (pt has been NPO/clear liquid diet for 11 days) The patient meets criteria for unspecified SEVERE protein-calorie malnutrition. Plan of Care: RD following, monitoring for tolerance and adequacy Nutrition reason for involvement: follow up RD Assessment: 09/24: Follow up. Pt is currently NPO and is scheduled to have a right colectomy today. Pt has been NPO/clear liquid diet since 09/13 (11 days). Pt's abdomen is still large, distended, and tender per documentation. No BM recorded but pt is having flatus. Will continue to monitor. 09/21: Follow up. Pt has been NPO/clear liquid diet since 09/13 (8 days). Pt reported she has not been consuming much of her liquid diet and is trying to consume the Ensure clear nutrition supplements provided. Pt reports nausea and pain at time of visit. No BM recorded but pt is having flatus. Will continue to monitor. 09/19: Follow up. Pt had a procedure today (lap assisted irrigation tube placement). Pt was advanced to a clear liquid diet this afternoon. Pt has been NPO/clear liquid diet since 09/13. Recommend Ensure clear with meals as tolerated. Pts abdomen remains large, distended, and tender per documentation. No BM recorded. Will continue to monitor. 09/14: Follow up. Pt is currently NPO. Pt had a disimpaction on 09/13, but is still waiting to have a BM as discussed in interdisciplinary rounds. It is documented that pts abdomen remains large, distended, and tender. Will continue to monitor. 09/10: Follow up. Pt eating dinner at time of visit, reports tolerating well and eating 50% of meals. Pt reports drinking Ensure BID, receptive to increasing to TID- RD to order. Pt continues with no BM, she reports MD aware. Noted abdominal rounded and distended. All questions and concerns addressed at time of visit. Chart reviewed. Will continue to monitor. 09/05: Follow up. Pt had a procedure regarding lysis of adhesion and repair of incarcerated ventral hernia on 09/03. Pt stated she is still eating <50% of her meals. Pt is awaiting to have a BM per RN. Pt reports some nausea and stated she had vomited yesterday. Pt is drinking Ensure nutrition supplements. Will continue to monitor. (09/01/19) Pt is a 58 year old female admitted with chest pain. Pt stated she is having N/V and unable to tolerate her meals today. Pt reports eating < 50% of meals for the past couple of weeks. Pt also reported she had unintentionally lost weight and used to weigh 159 lbs 6 months ago. Pt currently has a weight of 135 lbs in chart. This would be a 15% weight loss in 6 months which is considered significant weight loss. Pt was interested in a nutrition supplement. Recommend Ensure Enlive BID for added nutrition. Will continue to monitor. Principal Problems/Diagnoses: chest pain PMH: CAD, status post CABG, hyperlipidemia, repeated pancreatitis, chronic back pain and anxiety GI: pt is awaiting to have a BM, soft abdomen, flatus + Skin: intact Labs: 09/24: no updated labs 09/20: Na 135, K 3.6, BUN 7, Cr 0.73, Glu 128 09/17: Na 140, K 4.0, Cr 0.82, Glu 83 09/12: Na 138, K 4.2, BUN 23, Cr 0.79, Glu 81 09/09: Na 138, K 4.3, BUN 30, Cr 0.87, Gluc 90, Ca 9.5 09/05: Na 137, K 4.8, BUN 21, Cr 1.32, Ca 9.6 (08/31) Na 141, K 3,1, BUN 13, Cr 0.99, Glu 79, Ca 8.5 Meds: dilaudid, metoprolol, NaCl, KCl, zofran, atorvastatin, lactulose, methylnaltrexone, antibiotic, levothyroxine Ht: 63 inches Wt: 142 lbs (09/24 lbs) 141 lbs (09/18) 135 lbs (08/30) BMI: 25.2 kg/m2 IBW: 115 lbs Malnutrition Evaluation (09/01/19) The patient meets criteria for unspecified SEVERE protein-calorie malnutrition. Energy intake: <50% of estimated energy requirements for >5 days Weight loss: >10% in 6 months (Chronic) Fat loss: no loss identified Muscle loss: no loss identified Supporting Evidence: Fluid accumulation: no edema per MD note Functional Status: unable to evaluate Nutrition Prescription (Diet Order): clear liquids Estimated Nutritional Needs: 9274-9131 calories/day (25-35 kcal/kg CBW) Weight used: 135 lbs 61-92 g protein/day (1-1.5 g pro/kg CBW) Weight used: 135 lbs Diet Adequacy: Not meeting calorie needs, not meeting protein needs Tolerance: pt is NPO Diet Education Needs Assessment: Pt declined need for diet education materials on 08/31 Nutrition Care Level: high Nutrition Diagnosis: Severe malnutrition related to medical status as evidenced by pt meeting < 50% of estimated energy needs for > 5 days and >10% weight loss in 6 months. Goal: Patient will meet 75-100% of estimated needs by follow up Progress: not progressing Interventions: -fiber- modified diet, Commercial beverage Monitoring/Evaluation: -Total energy intake, Total protein intake, Modified diet, Liquid supplement, Weight change Signed: Ria Martinez RD, LD
--- NOTE | 2019-09-25 19:08 | NUR ---
BEDSIDE SHIFT REPORT GIVEN TO ONCOMING NURSE. PATIENT IS RESTING IN BED. NO ACUTE DISTRESS NOTED. CALL LIGHT WITHIN REACH. BED IN THE LOWEST POSITION.
[2019-09-26] VITALS (10 sets, daily range): BP systolic 147–180; BP diastolic 64–111
[2019-09-26] MEDS: SODIUM CHLORIDE 0.9% 250ML IRRIG IR SCH ×6 (01:44→22:08)
[2019-09-26] MEDS: OXYCODONE HCL IR 5 MG TAB PO PRN (01:59)
[2019-09-26] MEDS: ONDANSETRON HCL INJ 2MG/ML 2ML 2 MG/ML VIAL IV PRN ×4 (02:40→22:02)
[2019-09-26] MEDS: D5.45%NS/KCL 20MEQ 1,000 ML IV SCH ×3 (03:12→19:21)
[2019-09-26] MEDS: LABETALOL HCL 5 MG/ML 20ML VIAL IV PRN ×2 (03:15→12:52)
[2019-09-26] MEDS: HYDROMORPHONE 1MG/1ML INJ IV PRN ×5 (03:46→22:02)
[2019-09-26] MEDS: LEVOTHYROXINE SODIUM 100 MCG TAB PO SCH (05:02)
[2019-09-26] MEDS: CEFOXITIN SOD 1 GM in SODIUM CHLORIDE 0.9% 50ML 50 ML IV SCH ×4 (05:02→22:10)
[2019-09-26] MEDS: LORAZEPAM INJ 2 MG/ML VIAL IV PRN ×2 (05:30→15:26)
[2019-09-26] MEDS: PROMETHAZINE 12.5MG/ NACL 0.9% 12.5 MG/50 ML BAG IV PRN (06:24)
--- NOTE | 2019-09-26 06:54 | NUR ---
BSSR GIVEN TO ONCOMING SHIFT,PT STABLE SEEN SLEEPING, NG TUBE IN PLACE, H2O FLUSHES VIA NGT NS20CC/Q4H CONTINUED, MINIMAL DRAINAGE NOTED OVERNIGHT, PRN ANTI-NAUSEA & PRN PAIN MEDICATION GIVEN IV, PT TOLERATED WELL, HOB UP 45DEGREES, CALL LIGHT WITHIN REACH
[2019-09-26] MEDS: ASPIRIN 81 MG ENTERIC COATED PO SCH (08:46)
[2019-09-26] MEDS: AMLODIPINE BESYLATE 5 MG TAB PO SCH (08:46)
[2019-09-26] MEDS: FAMOTIDINE 20 MG/2 ML VIAL IV SCH ×2 (08:46→17:34)
[2019-09-26] MEDS: METOPROLOL SUCCINATE 25 MG TAB XL PO SCH (08:50)
[2019-09-26] MEDS: DIAZEPAM 5 MG TAB PO PRN (09:58)
[2019-09-26] MEDS: METHYLNALTREXONE BROMIDE 12 MG/0.6 ML VIAL SQ SCH (12:58)
--- NOTE | 2019-09-26 14:39 | NUR ---
IM- progress note O/N see below ROS: unreliable v/s revd PE tired appearing anicteric ns1s2 mod bs soft nt nd; left groin dressing in place; site soft; nontender no edema skin dry flat affect labs/meds revd A/P: 58yoF Chest pain- plavix loading; f/u echo; LHC no intervention; medical mgmt; CAD with hx stents and CABG- f/u echo Hypertensive heart ds- cont BB HLD_ statin Hypothyroidism- TSH high; Noncompliance? restart med; check TFTs Anxiety d/o- use BZD Insomnia- temazepam Prop: ppi dispo: Abdominal wall hernia- tender- get CT; check labs; d/c planning; 5 CHronically incarcerated hernia- sx planned; 6- awaiting surgery for hernia 6-2 doing better; cont care; f/u labs; 6-3 check labs; d/c planning; 6-4 awaiting BM 6-5 cont bowel regimen; f/u surgery 6-6 f/u KUB; cont bowel reg 6-7 check renal fn 6-8 renal improving; await BM 6-9 d/w ; NPO at midnight, planned for sedation and colonic cleanout tomorrow for severe constipation 6-10 check labs; surgery pending; 6-11 GI consultation. 6-12 endoscopy pending; bowel prep; reduce narcotics; nicotine patch . 6-13 cont care. 6-14 pain controlled; endoscopy tomorrow; 6-15 f/u endoscopy- not done; surgery re-eval for mechanical disimpaction. 6-16 f/[address] CT abd/pelvis 6-17 awaiting surgical procedure for disimpaction 6-18 s/p lap cecostomy tube and fecal disimpaction; SNF eval; check labs; 6-19 Golytely 10cc/hr via cecostomy; 6-20cont care; 6-21 d/w Emma: may need ex lap with colostomy and fecal evacuation, as still no BM. Pt agrees to surgery; 6-22 sx today.s/p right hemicolectomy; cont pain control 6- check labs; cont pain control; Julien Forbes MD, PhD.
--- NOTE | 2019-09-26 19:22 | NUR ---
walking rounds complete,pt stable at shift changes.
--- NOTE | 2019-09-26 19:24 | NUR ---
walking rounds complete,pt stable at shift changes.
--- NOTE | 2019-09-26 19:25 | NUR ---
Patient visited in room during nursing rounds. Patient alert and oriented x3. NG tube via left nare to LIWS. Dark green gastric contents collected on canister via NGT. Negron in place for urinary retention. Pt NPO and is receiving IVF (D51/2NS with 20KCL @ 125ml/hr). Dressing on abd (post Right colectomy) clean and dry and covered with silk tape. Pt still having frequent abdominal pain and will be medicated safely and accordingly. Call horner within reach.
[2019-09-26 21:13] LABS: BASOPHILS % 0.4 % (0.0-1.0); EOSINOPHILS # (AUTO) 0.1 (0.0-0.4); EOSINOPHILS % 1.1 % (0.0-6.0); HEMATOCRIT 34.5 % (34.2-44.1); HEMOGLOBIN 12.1 g/dL (12.0-16.0); LYMPHOCYTES # (AUTO) 1.1 (1.0-3.2); LYMPHOCYTES % 13.5 % (18.0-39.1); MEAN CORPUSCULAR HEMOGLOBIN 31.7 pg (28-32); MEAN CORPUSCULAR HGB CONC 35.1 g/dL (31-35); MEAN CORPUSCULAR VOLUME 90.3 fL (81-99); MONOCYTES # (AUTO) 1.3 (0.2-0.8); MONOCYTES % 15.9 % (4.4-11.3); NEUTROPHILS # (AUTO) 5.5 (2.1-6.9); NEUTROPHILS % 68.1 % (38.7-80.0); PLATELET COUNT 278 x10e3/uL (140-360); RED BLOOD COUNT 3.82 x10e6/uL (3.6-5.1); RED CELL DISTRIBUTION WIDTH 12.8 % (11.7-14.4)
[2019-09-26 21:22] LABS: ANION GAP 15.1 mmol/L (8-16); BLOOD UREA NITROGEN 5 mg/dL (7-26); BUN/CREATININE RATIO 8 (6-25); CALCIUM 8.6 mg/dL (8.4-10.2); CARBON DIOXIDE 23 mmol/L (22-29); CHLORIDE 102 mmol/L (98-107); CREATININE, SERUM 0.61 mg/dL (0.57-1.11); EST GLOMERULAR FILTRATION RATE > 60 ML/MIN (60-); GLUCOSE 127 mg/dL (74-118); POTASSIUM 4.1 mmol/L (3.5-5.1); SODIUM 136 mmol/L (136-145)
[2019-09-26 21:24] LABS: MAGNESIUM 1.5 MG/DL (1.3-2.1); PHOSPHORUS 2.2 MG/DL (2.3-4.7)
--- NOTE | 2019-09-26 21:39 | Progress Note ---
DATE: 09/26/2019 SUBJECTIVE: The patient ultimately had to undergo right hemicolectomy for nonprogressive severe fecal stasis in the right colon. It is almost like a kinetic colon. Post surgery, the patient has been tried on clear liquid diet, which she could not tolerate. She is currently having NG tube to low to intermittent wall suction to relieve nausea and vomiting. She is passing minimal flatus. REVIEW OF SYSTEMS: GENERAL: Always complains of pain. No fever or chills. CVS: No chest pain or palpitation. RESPIRATORY: No cough or expectoration. MEDICATIONS: She is getting D5 NS with KCl at 125 mL an hour, Dilaudid 1 mg IV q.4 hours, cefoxitin 1 g IV q.6 hours, famotidine 20 mg IV twice daily, Lorazepam 1 mg IV q.8 hours as needed, methylnaltrexone 12 mg subcutaneous 48 hours, labetalol 5 mg IV q.2 hours as needed, Zofran 4 mg IV q.6 hours as needed, diazepam 5 mg p.o. q.8 hours as needed, metoprolol 12.5 mg p.o. daily, amlodipine 5 mg p.o. daily, aspirin 81 mg p.o. q.a.m., levothyroxine 200 mcg p.o. daily, oxycodone 10 mg p.o. q.4 hours as needed, atorvastatin 80 mg p.o. at bedtime, lactulose 20 mg p.o. b.i.d. as needed, docusate 100 mg p.o. b.i.d. as needed, and nitroglycerin 0.4 mg sublingual every 5 minutes as needed. PHYSICAL EXAMINATION: VITAL SIGNS: Temperature 98.2, pulse 97, respirations 16, blood pressure 153/98, and oxygen saturation 96% on room air. GENERAL: Appears to be in some distress secondary to pain. HEENT: Oral mucosa is moist. Anicteric sclerae. NG is in place, put to low to intermittent wall suction. ABDOMEN: Surgical incision, surgical dressing in the right lower quadrant. Bowel sounds very minimal. LABORATORY DATA: There is no lab drawn today. PLAN: Postop care as per Surgery. Continue IV fluids to maintain hydration. Agree to keep NG to low to intermittent wall suction. Abdominal x-ray to check for ileus and status of colonic stool post right hemicolectomy. MD DOROTHY Mac /[id number]
[2019-09-26] MEDS: ATORVASTATIN 40 MG TAB PO SCH (22:08)
--- NOTE | 2019-09-26 22:21 | Diagnostic Imaging Report ---
Exam: AP supine portable film Clinical History: Status post right hemicolectomy evaluated for stool the colon Comparison: KUB 09/24/2019 DISCUSSION: Frontal view of the abdomen shows no air-filled, dilated loops of bowel, pneumatosis or pneumoperitoneum. Minimal amount of retained stool in the colon, predominantly in the distal transverse and descending colon, improved since prior exam. Interval placement of enteric tube, which projects coiled in the fundus, with distal tip projecting at the level of the stomach body. Stable cholecystectomy clips and intrapedicular screws and vertical stabilizing bars in the lumbar spine. Multiple midline abdominal shruthi are again noted projecting in the mid to lower abdomen. A more superior line of shruthi is now seen more superiorly, at the level of L2. No acute bony abnormalities. IMPRESSION: 1. No air-filled, dilated loops of bowel or pneumatosis. 2. Minimal amount of retained stool in the colon, improved since prior exam. 3. Interval placement of enteric tube, with distal tip projecting in the region of the stomach body. The staff physician below has personally reviewed this exam on the date of dictation. Signed by: Dr. Mk Melara M.D. on 09/26/2019 10:18 PM
[2019-09-27] VITALS (13 sets, daily range): BP systolic 141–172; BP diastolic 92–115
[2019-09-27] MEDS: LORAZEPAM INJ 2 MG/ML VIAL IV PRN ×3 (00:05→16:56)
[2019-09-27] MEDS: LABETALOL HCL 5 MG/ML 20ML VIAL IV PRN ×3 (01:00→21:51)
[2019-09-27] MEDS: D5.45%NS/KCL 20MEQ 1,000 ML IV SCH ×3 (02:00→21:44)
[2019-09-27] MEDS: SODIUM CHLORIDE 0.9% 250ML IRRIG IR SCH ×5 (02:00→16:39)
[2019-09-27] MEDS: HYDROMORPHONE 1MG/1ML INJ IV PRN ×6 (02:00→23:47)
[2019-09-27] MEDS: CEFOXITIN SOD 1 GM in SODIUM CHLORIDE 0.9% 50ML 50 ML IV SCH ×4 (05:40→23:47)
[2019-09-27] MEDS: LEVOTHYROXINE SODIUM 100 MCG TAB PO SCH (06:00)
--- NOTE | 2019-09-27 08:36 | NUR ---
IM- progress note O/N see below ROS: unreliable v/s revd PE tired appearing; NGT in place; anicteric ns1s2 mod bs soft nt nd; left groin dressing in place; site soft; nontender no edema skin dry flat affect labs/meds revd A/P: 58yoF Chest pain- plavix loading; f/u echo; LHC no intervention; medical mgmt; CAD with hx stents and CABG- f/u echo Hypertensive heart ds- cont BB HLD_ statin Hypothyroidism- TSH high; Noncompliance? restart med; check TFTs Anxiety d/o- use BZD Insomnia- temazepam Prop: ppi dispo: Abdominal wall hernia- tender- get CT; check labs; d/c planning; 09-02 CHronically incarcerated hernia- sx planned; 6- awaiting surgery for hernia 6-2 doing better; cont care; f/u labs; 6-3 check labs; d/c planning; 6-4 awaiting BM 6-5 cont bowel regimen; f/u surgery 6-6 f/u KUB; cont bowel reg 6-7 check renal fn 6-8 renal improving; await BM 6-9 d/w ; NPO at midnight, planned for sedation and colonic cleanout tomorrow for severe constipation 6-10 check labs; surgery pending; 6-11 GI consultation. 6-12 endoscopy pending; bowel prep; reduce narcotics; nicotine patch . 6-13 cont care. 6-14 pain controlled; endoscopy tomorrow; 6-15 f/u endoscopy- not done; surgery re-eval for mechanical disimpaction. 6-16 f/[address] CT abd/pelvis 6-17 awaiting surgical procedure for disimpaction 6-18 s/p lap cecostomy tube and fecal disimpaction; SNF eval; check labs; 6-19 Golytely 10cc/hr via cecostomy; 6-20cont care; 6-21 d/w Emma: may need ex lap with colostomy and fecal evacuation, as still no BM. Pt agrees to surgery; 6-22 sx today.s/p right hemicolectomy; cont pain control 6- check labs; cont pain control; 6-24 check lytes; cont pain control; Julien Forbes MD, PhD.
[2019-09-27] MEDS: FAMOTIDINE 20 MG/2 ML VIAL IV SCH ×2 (08:43→16:39)
[2019-09-27] MEDS: ASPIRIN 81 MG ENTERIC COATED PO SCH (08:44)
[2019-09-27] MEDS: AMLODIPINE BESYLATE 5 MG TAB PO SCH (08:44)
[2019-09-27] MEDS: METOPROLOL SUCCINATE 25 MG TAB XL PO SCH (09:00)
[2019-09-27] MEDS: PROMETHAZINE 12.5MG/ NACL 0.9% 12.5 MG/50 ML BAG IV PRN ×2 (10:47→21:50)
[2019-09-27 11:06] LABS: PHOSPHORUS 2.4 MG/DL (2.3-4.7); POTASSIUM 4.2 mmol/L (3.5-5.1)
[2019-09-27] MEDS: ONDANSETRON HCL INJ 2MG/ML 2ML 2 MG/ML VIAL IV PRN (14:12)
--- NOTE | 2019-09-27 18:56 | NUR ---
WALKING ROUNDS PERFORMED, RECEIVED PT LAYING SEMI FOWLERS IN BED, AAOX3, RR EVEN AND NON-LABORED, ON ROOM AIR. NGT TO (L) NARE CLAMPED. PT REPORTS NO VOMITING, OCCASIONAL MILD NAUSEA. PT REPORTS PAIN TO ANTERIOR ABD. LEFT PT LAYING SEMI FOWLERS IN BED, BED IN LOW LOCKED POSITION, SIDE RAILS UPX2, CALL LIGHT AND PHONE WITHIN REACH.
--- NOTE | 2019-09-27 19:15 | NUR ---
SPOKE WITH MD SOLIS CONCERNING PT TOLERATING PO AND DILAUDID FELL OFF EMAR. OK TO DC NGT. RENEW DILAUDID.
--- NOTE | 2019-09-27 19:31 | NUR ---
walking rounds complete, pt stable at shift change.
--- NOTE | 2019-09-27 19:49 | NUR ---
NGT TO (L) NARE, DISCONTINUED. CATHETER TIP INTACT.
[2019-09-27] MEDS: DIAZEPAM 5 MG TAB PO PRN (19:58)
[2019-09-27] MEDS: ATORVASTATIN 40 MG TAB PO SCH (19:58)
--- NOTE | 2019-09-27 21:25 | NUR ---
PT REPORTS 10/10 CHEST PAIN TO MIDSTERNAL RADIATING TO (L) ARM.
[2019-09-27] MEDS: NITROGLYCERIN 0.4 MG SUBL SL PRN ×3 (21:33→21:47)
--- NOTE | 2019-09-27 21:55 | NUR ---
PAIN NON-RESOLVED WITH NITRO. EKG ORDERED. NOTIFIED RESPIRATORY.
--- NOTE | 2019-09-27 22:20 | NUR ---
NOTIFIED MD HATHAWAY OF PATIENTS CHEST PAIN UNRESOLVED WITH NITRO. NO NEW ORDERS RECEIVED.
[2019-09-28] VITALS (7 sets, daily range): BP systolic 130–137; BP diastolic 91–108
[2019-09-28] MEDS: ONDANSETRON HCL INJ 2MG/ML 2ML 2 MG/ML VIAL IV PRN (00:08)
[2019-09-28] MEDS: LORAZEPAM INJ 2 MG/ML VIAL IV PRN ×3 (01:49→22:17)
[2019-09-28] MEDS: D5.45%NS/KCL 20MEQ 1,000 ML IV SCH (02:55)
[2019-09-28] MEDS: DIAZEPAM 5 MG TAB PO PRN ×2 (03:56→16:02)
[2019-09-28] MEDS: HYDROMORPHONE 1MG/1ML INJ IV PRN ×5 (03:56→21:31)
[2019-09-28] MEDS: LEVOTHYROXINE SODIUM 100 MCG TAB PO SCH (05:41)
[2019-09-28] MEDS: CEFOXITIN SOD 1 GM in SODIUM CHLORIDE 0.9% 50ML 50 ML IV SCH ×4 (05:41→23:46)
--- NOTE | 2019-09-28 05:45 | NUR ---
IM- progress note O/N see below ROS: unreliable v/s revd PE tired appearing; NGT in place; anicteric ns1s2 mod bs soft nt nd; left groin dressing in place; site soft; nontender no edema skin dry flat affect labs/meds revd A/P: 58yoF Chest pain- plavix loading; f/u echo; LHC no intervention; medical mgmt; CAD with hx stents and CABG- f/u echo Hypertensive heart ds- cont BB HLD_ statin Hypothyroidism- TSH high; Noncompliance? restart med; check TFTs Anxiety d/o- use BZD Insomnia- temazepam Prop: ppi dispo: Abdominal wall hernia- tender- get CT; check labs; d/c planning; 09-02 CHronically incarcerated hernia- sx planned; 6- awaiting surgery for hernia 6-2 doing better; cont care; f/u labs; 6-3 check labs; d/c planning; 6- awaiting BM 6-5 cont bowel regimen; f/u surgery 6-6 f/u KUB; cont bowel reg 6-7 check renal fn 6-8 renal improving; await BM 6-9 d/w ; NPO at midnight, planned for sedation and colonic cleanout tomorrow for severe constipation 6-10 check labs; surgery pending; 6-11 GI consultation. 6-12 endoscopy pending; bowel prep; reduce narcotics; nicotine patch . 6-13 cont care. 6-14 pain controlled; endoscopy tomorrow; 6-15 f/u endoscopy- not done; surgery re-eval for mechanical disimpaction. 6-16 f/[address] CT abd/pelvis 6-17 awaiting surgical procedure for disimpaction 6-18 s/p lap cecostomy tube and fecal disimpaction; SNF eval; check labs; 6-19 Golytely 10cc/hr via cecostomy; 6-20cont care; 6- d/w Emma: may need ex lap with colostomy and fecal evacuation, as still no BM. Pt agrees to surgery; 6- sx today.s/p right hemicolectomy; cont pain control 6- check labs; cont pain control; 6- check lytes; cont pain control; - pt refusing PT; limit narcotics; Pt refuses SNF. Julien Forbes MD, PhD.
--- NOTE | 2019-09-28 07:00 | NUR ---
BEDSIDE SHIFT REPORT RECEIVED FROM THE GLOBAL PROCESS OWNER RN. EDUCATED PT ABOUT FALL PRECAUTIONS. PT VERBALIZED UNDERSTANDING. CALL LIGHT WITH IN EASY REACH. INSTRUCTED PT TO USE CALL LIGHT FOR ALL THE NEEDS. BED IS LOW AND LOCKED. SIDE RAILS X2. BED ALARM IS ON. PT DENIES NEEDS AT THIS TIME.
[2019-09-28] MEDS: FAMOTIDINE 20 MG/2 ML VIAL IV SCH ×2 (08:30→17:25)
--- NOTE | 2019-09-28 08:40 | NUR ---
WENT TO SPEAK WITH THE PT ABOUT SNF ORDER, SHE REFUSED TO TALK ABOUT UNTIL SHE SPEAKS WITH HER .
[2019-09-28] MEDS: AMLODIPINE BESYLATE 5 MG TAB PO SCH (09:05)
[2019-09-28] MEDS: ASPIRIN 81 MG ENTERIC COATED PO SCH (09:05)
[2019-09-28] MEDS: METOPROLOL SUCCINATE 25 MG TAB XL PO SCH (09:05)
[2019-09-28] MEDS: PROMETHAZINE 12.5MG/ NACL 0.9% 12.5 MG/50 ML BAG IV PRN ×2 (09:17→21:31)
[2019-09-28] MEDS: METHYLNALTREXONE BROMIDE 12 MG/0.6 ML VIAL SQ SCH (12:00)
--- NOTE | 2019-09-28 12:15 | NUR ---
PLACED PT ON BEACH EXPERT. PT IS AAOX4. DENIES NEEDS AT THIS TIME.
[2019-09-28] MEDS: LABETALOL HCL 5 MG/ML 20ML VIAL IV PRN (12:20)
[2019-09-28] MEDS ORDERED: BISACODYL 10 MG SUPP PR SCH (13:15)
--- NOTE | 2019-09-28 14:14 | NUR ---
CALLED AND SPOKE WITH MOTHER, MONICA, GAVE FACILITIES IN [facility] AND [facility]. SHE STATES SHE WILL SPEAK WITH THE PT HER AND HERSELF, SHE THINKS THEY ARE NOT GOING TO WANT TO GO TO A SNF, BUT WILL DISCUSS AND CALL CM BACK TO LET KNOW DECISION.
--- NOTE | 2019-09-28 14:34 | Diagnostic Imaging Report ---
Exam: KUB - 2 views Indication: Abdominal Pain Comparison: KUB of 09/26/2019 Findings: Again seen are multiple prominent loops of gas-filled large and small bowel compatible with ileus in the postoperative setting. No free air. No acute osseous injury. Status post cholecystectomy. Enteric tube has been removed. Unchanged lumbosacral fusion hardware. Surgical clips overlie the midline abdomen. Impression: Interval removal of NG tube. Unchanged prominent air-filled loops of large and small bowel compatible with ileus. No free air. Signed by: Marck Nicholas MD on 09/28/2019 2:31 PM
--- NOTE | 2019-09-28 15:54 | NUR ---
WAS CALLED BY NURSE SHARIF TO GO INTO ROOM TO GET CHOICE SINCE WAS HERE. WENT IN AND WAS ATTEMPTING TO INTRODUCE [place] SELF AND STARTED SCREAMING AT ME THAT HIS "IS IN TOO MUCH PAIN, I WILL NOT TALK TO YOU UNTIL YALL ADDRESS HER PAIN, GET OUT" I WAS ATTEMPT TO APOLOGIZE AND HE SCREAMED "GET THE F OUT" LET ROOM NOTIFIED NURSE, DOCTOR AND CM OF ABRASIVE REACTION FROM .
--- NOTE | 2019-09-28 15:55 | NUR ---
PAGED DR. OLMEDO PER DR. HEART REGARDING NEW CONSULT.
--- NOTE | 2019-09-28 16:11 | NUR ---
Nutrition Intervention Note RD Recommendation(s) for Physician: -Recommend advancing diet to GI soft as medically appropriate with Ensure with meals The patient meets criteria for unspecified SEVERE protein-calorie malnutrition. Plan of Care: RD following, diet and supplement rec's, monitoring for tolerance and adequacy Nutrition reason for involvement: follow up RD Assessment: 09/27: Follow up. Diet advanced to full liquids, pt with 75% intake of liquids for lunch. Pt in pain this afternoon at time of visit, did not disturb. Pt s/p R hemicolectomy. Pt with 125 ml of gastric output yesterday. Chart reviewed. Will continue to monitor. 09/24: Follow up. Pt is currently NPO and is scheduled to have a right colectomy today. Pt has been NPO/clear liquid diet since 09/13 (11 days). Pt's abdomen is still large, distended, and tender per documentation. No BM recorded but pt is having flatus. Will continue to monitor. 09/21: Follow up. Pt has been NPO/clear liquid diet since 09/13 (8 days). Pt reported she has not been consuming much of her liquid diet and is trying to consume the Ensure clear nutrition supplements provided. Pt reports nausea and pain at time of visit. No BM recorded but pt is having flatus. Will continue to monitor. 09/19: Follow up. Pt had a procedure today (lap assisted irrigation tube placement). Pt was advanced to a clear liquid diet this afternoon. Pt has been NPO/clear liquid diet since 09/13. Recommend Ensure clear with meals as tolerated. Pts abdomen remains large, distended, and tender per documentation. No BM recorded. Will continue to monitor. 09/14: Follow up. Pt is currently NPO. Pt had a disimpaction on 09/13, but is still waiting to have a BM as discussed in interdisciplinary rounds. It is documented that pts abdomen remains large, distended, and tender. Will continue to monitor. 09/10: Follow up. Pt eating dinner at time of visit, reports tolerating well and eating 50% of meals. Pt reports drinking Ensure BID, receptive to increasing to TID- RD to order. Pt continues with no BM, she reports MD aware. Noted abdominal rounded and distended. All questions and concerns addressed at time of visit. Chart reviewed. Will continue to monitor. 09/05: Follow up. Pt had a procedure regarding lysis of adhesion and repair of incarcerated ventral hernia on 09/03. Pt stated she is still eating <50% of her meals. Pt is awaiting to have a BM per RN. Pt reports some nausea and stated she had vomited yesterday. Pt is drinking Ensure nutrition supplements. Will continue to monitor. (09/01/19) Pt is a 58 year old female admitted with chest pain. Pt stated she is having N/V and unable to tolerate her meals today. Pt reports eating < 50% of meals for the past couple of weeks. Pt also reported she had unintentionally lost weight and used to weigh 159 lbs 6 months ago. Pt currently has a weight of 135 lbs in chart. This would be a 15% weight loss in 6 months which is considered significant weight loss. Pt was interested in a nutrition supplement. Recommend Ensure Enlive BID for added nutrition. Will continue to monitor. Principal Problems/Diagnoses: chest pain PMH: CAD, status post CABG, hyperlipidemia, repeated pancreatitis, chronic back pain and anxiety GI: 09/26- 125 ml gastric output Skin: abdominal incision Labs: 09/26: Phos 2.4, Mg 1.5; 09/25: Na 136, K 4.1, BUN 5, Cr 0.61, Gluc 127, Ca 8.6 09/24: no updated labs 09/20: Na 135, K 3.6, BUN 7, Cr 0.73, Glu 128 09/17: Na 140, K 4.0, Cr 0.82, Glu 83 09/12: Na 138, K 4.2, BUN 23, Cr 0.79, Glu 81 09/09: Na 138, K 4.3, BUN 30, Cr 0.87, Gluc 90, Ca 9.5 09/05: Na 137, K 4.8, BUN 21, Cr 1.32, Ca 9.6 (08/31) Na 141, K 3,1, BUN 13, Cr 0.99, Glu 79, Ca 8.5 Meds: dilaudid, abx, pepcid, synthroid, zofran, lipitor, lactulose, colace, dulcolax Ht: 63 inches Wt: 142 lbs (09/24 lbs) 141 lbs (09/18) 135 lbs (08/30) BMI: 25.2 kg/m2 IBW: 115 lbs Malnutrition Evaluation (09/28/19) The patient meets criteria for unspecified SEVERE protein-calorie malnutrition. Energy intake: <50% of estimated energy requirements for >5 days Weight loss: >10% in 6 months (Chronic) Fat loss: no loss identified Muscle loss: no loss identified Supporting Evidence: Fluid accumulation: no edema per MD note Functional Status: unable to evaluate Nutrition Prescription (Diet Order): full liquids Estimated Nutritional Needs: 2185-5827 calories/day (25-35 kcal/kg CBW) Weight used: 135 lbs 61-92 g protein/day (1-1.5 g pro/kg CBW) Weight used: 135 lbs Diet Adequacy: Not meeting calorie needs, not meeting protein needs Tolerance: tolerating full liquids Diet Education Needs Assessment: Pt declined need for diet education materials on 08/31 Nutrition Care Level: high Nutrition Diagnosis: Severe malnutrition related to medical status as evidenced by pt meeting < 50% of estimated energy needs for > 5 days and >10% weight loss in 6 months. Goal: Patient will meet 75-100% of estimated needs by follow up Progress: not progressing Interventions: -fiber- modified diet, Commercial beverage Monitoring/Evaluation: -Total energy intake, Total protein intake, Modified diet, Liquid supplement, Weight change Signed: Lisbeth Erwin RD, LD, CNSC
[2019-09-28] MEDS ORDERED: BISACODYL 10 MG SUPP PR ONE (17:21)
--- NOTE | 2019-09-28 19:03 | NUR ---
WALKING ROUNDS PERFORMED, RECEIVED PT (R) SIDE LAYING SEMI FOWLERS IN BED, AAOX3, RR EVEN AND NON-LABORED, ON ROOM AIR. PT REPORTS PAIN TO ANTERIOR ABD. LEFT PT (R) SIDE LAYING IN BED, BED IN LOW LOCKED POSITION, SIDE RAILS UPX2, CALL LIGHT AND PHONE WITHIN REACH.
--- NOTE | 2019-09-28 19:05 | NUR ---
BEDSIDE SHIFT REPORT GIVEN TO THE CHECK INSPECTOR RN. PT DENIED FURTHER NEEDS.
[2019-09-28] MEDS: ATORVASTATIN 40 MG TAB PO SCH (22:17)
[2019-09-28] MEDS ORDERED: SODIUM CHLORIDE 0.9% 250ML 250 ML ONE (22:23)
[2019-09-29] VITALS: BP 131/101
[2019-09-29] MEDS: DIAZEPAM 5 MG TAB PO PRN ×2 (00:14→08:30)
[2019-09-29] MEDS: HYDROMORPHONE 1MG/1ML INJ IV PRN ×4 (01:50→15:21)
[2019-09-29 02:42] VITALS: BP 131/101
[2019-09-29 04:00] VITALS: BP 133/99
--- NOTE | 2019-09-29 05:40 | NUR ---
D/C summary Principal Dx: Atypical Chest pain- plavix loading; f/u echo; LHC no intervention; medical mgmt; CAD with hx stents and CABG- f/u echo Hypertensive heart ds- cont BB Severe constipation fecal impaction s/p right colectomy Chronic incarcerated hernia s/p repair Narcoic dependence Secondary Dx: HLD_ statin Hypothyroidism- TSH high; Noncompliance? restart med; check TFTs Anxiety d/o- use BZD Insomnia- temazepam Prop: ppi dispo: Abdominal wall hernia- tender- get CT; check labs; d/c planning; 09-02 CHronically incarcerated hernia- sx planned; - awaiting surgery for hernia 6-2 doing better; cont care; f/u labs; 6- check labs; d/c planning; - awaiting BM 6- cont bowel regimen; f/u surgery 6- f/u KUB; cont bowel reg 6-7 check renal fn 6-8 renal improving; await BM 6- d/w ; NPO at midnight, planned for sedation and colonic cleanout tomorrow for severe constipation 6-10 check labs; surgery pending; -11 GI consultation. 6-12 endoscopy pending; bowel prep; reduce narcotics; nicotine patch . -13 cont care. 6-14 pain controlled; endoscopy tomorrow; -15 f/u endoscopy- not done; surgery re-eval for mechanical disimpaction. -16 f/u CT abd/pelvis -17 awaiting surgical procedure for disimpaction 6-18 s/p lap cecostomy tube and fecal disimpaction; SNF eval; check labs; - Golytely 10cc/hr via cecostomy; -20cont care; - d/w Emma: may need ex lap with colostomy and fecal evacuation, as still no BM. Pt agrees to surgery; - sx today.s/p right hemicolectomy; cont pain control - check labs; cont pain control; - check lytes; cont pain control; - pt refusing PT; limit narcotics; Pt refuses SNF. 09-28 Ileus present; ambulate pt; Now had BM; ready to go home f/u pcp 2 days and 1 week and 1 week for pain mgmt stable d/c>35mins d/c home with PT/HH Julien Forbes MD, PhD.
[2019-09-29] MEDS: CEFOXITIN SOD 1 GM in SODIUM CHLORIDE 0.9% 50ML 50 ML IV SCH ×3 (06:00→16:14)
[2019-09-29] MEDS: LEVOTHYROXINE SODIUM 100 MCG TAB PO SCH (06:10)
--- NOTE | 2019-09-29 06:10 | NUR ---
STERILE DRESSING CHANGE TO (R) UPPER ARM PICC.
[2019-09-29] MEDS: ONDANSETRON HCL INJ 2MG/ML 2ML 2 MG/ML VIAL IV PRN ×2 (06:15→12:06)
[2019-09-29] MEDS: LORAZEPAM INJ 2 MG/ML VIAL IV PRN (06:50)
[2019-09-29 07:47] VITALS: BP 142/97
[2019-09-29] MEDS ORDERED: LACTULOSE20 GM/30 M PO (08:20)
[2019-09-29] MEDS ORDERED: COLACE100 MG PO (08:20)
[2019-09-29] MEDS ORDERED: ZOFRAN4 MG PO (08:20)
[2019-09-29] MEDS ORDERED: SENNA LAXATIVE8.6 MG PO (08:20)
[2019-09-29] MEDS ORDERED: NORVASC5 MG PO (08:20)
[2019-09-29] MEDS ORDERED: MILK OF MA2400 MG/10 PO (08:20)
[2019-09-29] MEDS ORDERED: CEFUROXIME250 MG PO (08:21)
[2019-09-29] MEDS: FAMOTIDINE 20 MG/2 ML VIAL IV SCH ×2 (08:23→15:42)
[2019-09-29] MEDS: ASPIRIN 81 MG ENTERIC COATED PO SCH (08:27)
[2019-09-29] MEDS: AMLODIPINE BESYLATE 5 MG TAB PO SCH (08:27)
[2019-09-29] MEDS: METOPROLOL SUCCINATE 25 MG TAB XL PO SCH (08:30)
--- NOTE | 2019-09-29 08:45 | NUR ---
REMOVED FINE PER THE ORDER FROM DR. HEART. TIP INTACT. 200 ML URINE NOTED IN THE FINE BAG. PT TOLERATED WELL. PT DENIED FURTHER NEEDS.
--- NOTE | 2019-09-29 09:10 | NUR ---
ASSESSMENT: Spiritual concern Pt thankful. Pt visited Taxonomy Teacher's office. Pt states she should be discharging from hospital "soon." Pt states she isn't in as much pain and is able to walk some. Pt states she has returned and it is "a long story." Pt requested collection advisor's business card. Intervention: Provided unhurried pastoral listening and encouragement. Outcome: Pt states she is thankful for Taxonomy Teacher support. No need to continue to follow at this time. MARIVEL SALES Taxonomy Teacher Spiritual Care Department O: [phone]
[2019-09-29 09:50] VITALS: BP 142/97
[2019-09-29 11:32] VITALS: BP 112/96
--- NOTE | 2019-09-29 12:30 | NUR ---
MET W THE PT AT THE BEDSIDE. PROVIDED CHOICE FOR HOME HEALTH. [facility], [facility]. PT CHOSE [facility] @ OFF: [phone] / FAX: [phone]. REFERRAL FAXED TO [facility].
--- NOTE | 2019-09-29 16:18 | NUR ---
RECEIVED CALL FROM [facility] STATING THE PT'S INSURANCE IS NO LONGER ACTIVE. CALLED ABDIRAHMAN IN THE BUSINESS OFF @ [id number], BUT NO ANSWER. LEFT VM. CHECKED BAR NOTE; PLAN 09/12/2019. NOTIFIED SHARIF; BEDSIDE NURSE. NOTIFIED DR. HEART.
--- NOTE | 2019-09-29 16:34 | NUR ---
TERRY AND BEDSIDE NURSE; SHARIF MET W THE PT AT THE BEDSIDE. INFORMED OF INSURANCE LAPSE. SHE STATES HER RETIRED AND IT WILL BE TAKEN CARE OF. SHE ALSO STATES HER PAID THE INSURANCE TODAY. SHE STATES SHE WILL CALL THE HH AGENC[facility] FROM HOME ONCE SHE GETS HER INSURANCE INFO. PT WAS GIVEN THE HH AGENCY'S CONTACT INFO.
--- NOTE | 2019-09-29 16:44 | NUR ---
NIRAV TO D/C PT PER DR. SOLIS, DR. OLMEDO, DR. RAZA, CASE MANAGEMENT AND DR. HEART. PT PAIN MEDS FAXED TO PHARMACY PER DR. OLMEDO. INFORMED THE SAME TO DR. HEART. PT REQUESTED ATIVAN. NIRAV TO GIVE PO ATIVAN 0.5 MG ONCE BEFORE D/C PER DR. HEART.
[2019-09-29] MEDS ORDERED: LORAZEPAM 0.5 MG TAB PO SCH (16:50)
[2019-09-29] MEDS ORDERED: SYNTHROID50 MCG PO (16:53)
--- NOTE | 2019-09-29 17:15 | NUR ---
D/C INSTRUCTIONS AND PRESCRIPTIONS GIVEN TO THE PT. PT VERBALIZED UNDERSTANDING. PT IS WAITING FOR FAMILY MEMBER TO CUSTOMER SOLUTIONS COORDINATOR.
--- NOTE | 2019-09-29 18:00 | NUR ---
RIGHT UPPER ARM PICC LINE REMOVED. TIP INTACT. PRESSURE DRESSING APPLIED. SITE IS CDI. PT TOLERATED WELL AND DENIED FURTHER NEEDS.
--- NOTE | 2019-09-29 18:10 | NUR ---
PT DISCHARGED HOME SAFELY WITH FAMILY MEMBER. TELE AND PICC LINE REMOVED. TIP INTACT. PRESSURE DRESSING APPLIED. D/C INSTRUCTIONS GIVEN. PT VERBALIZED UNDERSTANDING. PT ESCORTED BY THE TECH VIA WHEEL CHAIR TO THE PRIVATE AUTO AT THE FRONT ENTRANCE. PT DENIED FURTHER NEEDS.
== END 2019-09-29 18:19 | disposition home or self-care (01) | DRG 330 ==
LOC: ER 10:57 → ERHOLD 13:31 → MED/SURG3 15:54 → OBSVTOIN 09-02 11:31
PROVIDERS: ADMIT Internal Medicine; ATTEND Internal Medicine
PROC: 4A023N7 Measurement of Cardiac Sampling and Pressure, Left Heart, Percutaneous Approach (ICD-10-PCS; principal; 2019-09-02)
PROC: B2131ZZ Fluoroscopy of Multiple Coronary Artery Bypass Grafts using Low Osmolar Contrast (ICD-10-PCS; 2019-09-02)
PROC: B2111ZZ Fluoroscopy of Multiple Coronary Arteries using Low Osmolar Contrast (ICD-10-PCS; 2019-09-02)
PROC: B2181ZZ Fluoroscopy of Left Internal Mammary Bypass Graft using Low Osmolar Contrast (ICD-10-PCS; 2019-09-02)
PROC: B2151ZZ Fluoroscopy of Left Heart using Low Osmolar Contrast (ICD-10-PCS; 2019-09-02)
PROC: 0DNU4ZZ Release Omentum, Percutaneous Endoscopic Approach (ICD-10-PCS; 2019-09-04)
PROC: 0WQF0ZZ Repair Abdominal Wall, Open Approach (ICD-10-PCS; 2019-09-04)
PROC: 0DN84ZZ Release Small Intestine, Percutaneous Endoscopic Approach (ICD-10-PCS; 2019-09-04)
PROC: 0DCP8ZZ Extirpation of Matter from Rectum, Via Natural or Artificial Opening Endoscopic (ICD-10-PCS; 2019-09-13)
PROC: 02HV33Z Insertion of Infusion Device into Superior Vena Cava, Percutaneous Approach (ICD-10-PCS; 2019-09-13)
PROC: B548ZZA Ultrasonography of Superior Vena Cava, Guidance (ICD-10-PCS; 2019-09-13)
PROC: 0DC Gastrointestinal System, Extirpation (ICD-10-PCS; 2019-09-20)
PROC: 0D9H4ZZ Drainage of Cecum, Percutaneous Endoscopic Approach (ICD-10-PCS; 2019-09-20)
PROC: 0DTF0ZZ Resection of Right Large Intestine, Open Approach (ICD-10-PCS; 2019-09-25)
PROC: 0D1B0Z4 Bypass Ileum to Cutaneous, Open Approach (ICD-10-PCS; 2019-09-25)
DX: K43.6 Other and unspecified ventral hernia with obstruction, without gangrene (principal); I25.810 Atherosclerosis of coronary artery bypass graft(s) without angina pectoris; I24.9 Acute ischemic heart disease, unspecified; E44.1 Mild protein-calorie malnutrition; K56.51 Intestinal adhesions [bands], with partial obstruction; K43.0 Incisional hernia with obstruction, without gangrene; I25.10 Atherosclerotic heart disease of native coronary artery without angina pectoris; E78.5 Hyperlipidemia, unspecified; Z95.1 Presence of aortocoronary bypass graft; Z95.5 Presence of coronary angioplasty implant and graft; Z88.0 Allergy status to penicillin; Z88.8 Allergy status to other drugs, medicaments and biological substances; J44.9 Chronic obstructive pulmonary disease, unspecified; G47.00 Insomnia, unspecified; F41.9 Anxiety disorder, unspecified; I11.0 Hypertensive heart disease with heart failure; I50.9 Heart failure, unspecified; M54.9 Dorsalgia, unspecified; Z90.49 Acquired absence of other specified parts of digestive tract; E89.0 Postprocedural hypothyroidism; F17.210 Nicotine dependence, cigarettes, uncomplicated; Z82.49 Family history of ischemic heart disease and other diseases of the circulatory system; Z68.23 Body mass index [BMI] 23.0-23.9, adult; I73.9 Peripheral vascular disease, unspecified; K59.03 Drug induced constipation; T40.2X5A Adverse effect of other opioids, initial encounter; Y92.230 Patient room in hospital as the place of occurrence of the external cause
CPT/HCPCS: 36415; 36569; 71045; 74018; 74019; 74176; 74177; 80048; 80053; 80061; 81001; 82550; 82553; 83690; 83735; 83880; 84100; 84132; 84436; 84439; 84443; 84479; 84484; 85025; 85610; 85730; 86301; 87086; 87635; 88307; 93005; 93041; 93306; 93459; 96360; 96361; 96375; 96376; 97139; 99152; 99153; 99284; C1766; C1769; C1887; G0378; J0330; J0360; J0694; J1100; J1170; J1200; J1644; J1650; J1956; J2001; J2060; J2212; J2250; J2270; J2405; J2550; J2710; J3010; J7030; J7050; J7512; Q0162; Q9967

== ENCOUNTER → 2019-10-04 | Emergency (ER) | payer SELFPAY ==
[~2019-10-04] VITALS: Ht 312.4 cm; Wt 63.0 kg
[~2019-10-04] MED LIST changes: +ASPIRIN EC81 MG PO; +Atorvastatin PO; +CEFUROXIME250 MG PO; +COLACE100 MG PO; +DICYCLOMINE HCL 20 MG/2 ML VIAL IM ONE; +LACTULOSE20 GM/30 M PO; +MILK OF MA2400 MG/10 PO; +NORVASC5 MG PO; +ONDANSETRON HCL INJ 2MG/ML 2ML 2 MG/ML VIAL IV STA; +PANTOPRAZOLE 40 MG 10ML VIAL IV STA; +SENNA LAX8.6 MG PO; +SENNA LAXATIVE8.6 MG PO; +SODIUM CHLORIDE 0.9% 1000ML 1,000 ML IV STA; +SYNTHROID50 MCG PO; +TOPROL XL25 MG PO; +ULTRAM 50MG50 MG PO; +ZOFRAN4 MG PO
--- NOTE | 2019-10-04 15:11 | Diagnostic Imaging Report ---
EXAMINATION: ABDOMEN ACUTE SERIES W/PA CXR INDICATION: Abdominal pain COMPARISON: KUB of 09/28/2019 FINDINGS: LINES/TUBES:None LUNGS:The lungs are well-inflated. No focal consolidation or pulmonary edema. PLEURA:No pleural effusion or pneumothorax. MEDIASTINUM:The cardiomediastinal silhouette appears normal in size and shape. Coronary artery stent. BONES/SOFT TISSUES:No acute osseous injury. Sternotomy wires in place. ABDOMEN:Gaseous distention of the stomach. Otherwise, nonobstructive bowel gas pattern. No free air. Status post cholecystectomy. Surgical skin shruthi and surgical clips overlie the lower abdomen. Status post lumbar fusion. IMPRESSION: No focal pneumonia or pulmonary edema. Gaseous distention of the stomach. Signed by: Marck Nicholas MD on 10/04/2019 3:08 PM
[2019-10-04 15:30] LABS: BASOPHILS # (AUTO) 0.1 (0.0-0.1); BASOPHILS % 0.8 % (0.0-1.0); EOSINOPHILS % 0.7 % (0.0-6.0); HEMATOCRIT 32.4 % (34.2-44.1); HEMOGLOBIN 10.9 g/dL (12.0-16.0); LYMPHOCYTES % 17.2 % (18.0-39.1); MEAN CORPUSCULAR HEMOGLOBIN 31.4 pg (28-32); MEAN CORPUSCULAR HGB CONC 33.6 g/dL (31-35); MEAN CORPUSCULAR VOLUME 93.4 fL (81-99); MONOCYTES # (AUTO) 0.3 (0.2-0.8); MONOCYTES % 5.5 % (4.4-11.3); NEUTROPHILS # (AUTO) 4.5 (2.1-6.9); PLATELET COUNT 589 x10e3/uL (140-360); RED BLOOD COUNT 3.47 x10e6/uL (3.6-5.1); RED CELL DISTRIBUTION WIDTH 13.9 % (11.7-14.4)
[2019-10-04 15:35] LABS: BILIRUBIN,URINE NEGATIVE (NEGATIVE); CLARITY,URINE SL CLOUDY (CLEAR); COLOR,URINE YELLOW (YELLOW); KETONES,URINE NEGATIVE (NEGATIVE); LEUKOCYTE ESTERASE ,URINE NEGATIVE (NEGATIVE); NITRITE,URINE NEGATIVE (NEGATIVE); PROTEIN,URINE DIPSTICK NEGATIVE (NEGATIVE); URINE UROBILINOGEN 0.2 mg/dL (0.2 - 1)
[2019-10-04 15:46] LABS: INR 0.93
[2019-10-04 15:47] LABS: PARTIAL THROMBOPLASTIN TIME 28.2 seconds (23.8-35.5)
[2019-10-04 15:49] LABS: BACTERIA,URINE RARE /HPF; EPITHELIAL CELLS,URINE RARE /LPF; RENAL EPITHELIAL CELLS,URINE RARE; TRANSITIONAL EPI CELLS,URINE RARE
[2019-10-04 15:55] LABS: ALANINE AMINOTRANSFERASE 24 IU/L (0-55); ALBUMIN 2.7 g/dL (3.5-5.0); ALBUMIN/GLOBULIN RATIO 0.8 (0.8-2.0); ALKALINE PHOSPHATASE 66 IU/L (40-150); AMYLASE 41 U/L (25-125); BLOOD UREA NITROGEN 8 mg/dL (7-26); BUN/CREATININE RATIO 12 (6-25); CALCIUM 9.3 mg/dL (8.4-10.2); CARBON DIOXIDE 25 mmol/L (22-29); CHLORIDE 107 mmol/L (98-107); CREATINE KINASE 79 IU/L (29-168); CREATININE, SERUM 0.67 mg/dL (0.57-1.11); EST GLOMERULAR FILTRATION RATE > 60 ML/MIN (60-); GLUCOSE 94 mg/dL (74-118); LIPASE 19 U/L (8-78); SODIUM 143 mmol/L (136-145)
--- NOTE | 2019-10-04 17:59 | Emergency Department Note ---
History of Present Illnes History of Present Illness Chief Complaint: Abdominal Complaints History of Present Illness This is a 58 year old female ABD PAIN DIFFUSE WITH N/V/D. AAOX4. AMBULATORY. ONSET 2 DAYS. Was seen yesterday at [facility] ([place]) and normal labs and CT (per Dr Jackson) Historian: Patient Arrival Mode: Car Almond Blancher Operator Required: No Onset (how long ago): day(s) (2) Location: diffuse abdomen Quality: pain Radiation: Reports non-radiation Severity: severe Onset quality: gradual Progression: waxing and waning Context: Reports recent surgery (hemicolectomy) Relieving factors: none Exacerbating factors: none Associated symptoms: Reports denies other symptoms Treatments prior to arrival: none Past Medical/Family History Physician Review I have reviewed the patient's past medical and family history. Any updates have been documented here. Past Medical History Recent Fever: No Clinical Suspicion of Infectio: No New/Unexplained Change in Ment: No Past Medical History: Hypertension, Hypothyroidism, CAD, Chronic Back Pain Other Medical History: HEART DISEASE PER PATIENT 18 STENTS LAST HEART CATH Past Surgical History: Cholecysctectomy, CABG, Back Surgery Other Surgery: Thyroid removed Gallbladder removed Tonsillectomy Social History Smoking Cessation: Former smoker Alcohol Use: Occasional Any Illegal Drug Use: No Other Last Tetanus: UTD Any Pre-Existing Lines (PICC,: No Review of Systems Review of Systems Constitutional: Reports no symptoms EENTM: Reports no symptoms Cardiovascular: Reports no symptoms Respiratory: Reports no symptoms Gastrointestinal: Reports as per HPI Genitourinary: Reports no symptoms Musculoskeletal: Reports no symptoms Integumentary: Reports no symptoms Neurological: Reports no symptoms Psychological: Reports no symptoms Endocrine: Reports no symptoms Hematological/Lymphatic: Reports no symptoms Physical Exam Related Data Allergies: Coded Allergies: Penicillins (Verified Allergy, Severe, THROAT SWELLING, 03/11/16) ketorolac tromethamine (Verified Allergy, Mild, RASH, 08/02/11) metoclopramide HCl (Verified Allergy, Mild, JERKY, 08/02/11) prochlorperazine edisylate (Verified Allergy, Mild, RASH, 08/02/11) prochlorperazine maleate (Verified Allergy, Mild, RASH, 08/02/11) Triage Vital Signs Vital Signs Date Time Temp Pulse Resp B/P (MAP) Pulse Ox O2 Delivery O2 Flow Rate FiO2 10/04/19 12:01 98.4 109 20 166/97 97 Vital signs reviewed: Yes Physical Exam CONSTITUTIONAL Constitutional: Present well-developed, Present well-nourished HENT HENT: Present normocephalic, Present atraumatic, Present oropharynx clear/moist, Present nose normal HENT L/R: Present left ext ear normal, Present right ext ear normal EYES Eyes: Reports PERRL, Reports conjunctivae normal NECK Neck: Present ROM normal PULMONARY Pulmonary: Present effort normal, Present breath sounds normal CARDIOVASCULAR Cardiovascular: Present regular rhythm, Present heart sounds normal, Present capillary refill normal, Present normal rate GASTROINTESTINAL Abdominal: Present soft, Present bowel sounds normal, Present tender (diffuse tenderness); Absent guarding, Absent rebound GENITOURINARY Genitourinary: Present exam deferred SKIN Skin: Present warm, Present dry MUSCULOSKELETAL Musculoskeletal: Present ROM normal NEUROLOGICAL Neurological: Present alert, Present oriented x 3, Present no gross motor or sensory deficits PSYCHOLOGICAL Psychological: Present mood/affect normal, Present judgement normal Results Laboratory Result Diagram: 10/04/19 1520 10/04/19 1520 Laboratory Laboratory Tests Test 10/04/19 15:20 White Blood Count 6.04 x10e3/uL (4.8-10.8) Red Blood Count 3.47 x10e6/uL (3.6-5.1) Hemoglobin 10.9 g/dL (12.0-16.0) Hematocrit 32.4 % (34.2-44.1) Mean Corpuscular Volume 93.4 fL (81-99) Mean Corpuscular Hemoglobin 31.4 pg (28-32) Mean Corpuscular Hemoglobin Concent 33.6 g/dL (31-35) Red Cell Distribution Width 13.9 % (11.7-14.4) Platelet Count 589 x10e3/uL (140-360) Neutrophils (%) (Auto) 75.0 % (38.7-80.0) Lymphocytes (%) (Auto) 17.2 % (18.0-39.1) Monocytes (%) (Auto) 5.5 % (4.4-11.3) Eosinophils (%) (Auto) 0.7 % (0.0-6.0) Basophils (%) (Auto) 0.8 % (0.0-1.0) Neutrophils # (Auto) 4.5 (2.1-6.9) Lymphocytes # (Auto) 1.0 (1.0-3.2) Monocytes # (Auto) 0.3 (0.2-0.8) Eosinophils # (Auto) 0.0 (0.0-0.4) Basophils # (Auto) 0.1 (0.0-0.1) Absolute Immature Granulocyte (auto 0.05 x10e3/uL (0-0.1) Prothrombin Time 13.0 seconds (11.9-14.5) Prothromb Time International Ratio 0.93 Activated Partial Thromboplast Time 28.2 seconds (23.8-35.5) Urine Color Yellow (YELLOW) Urine Clarity Sl cloudy (CLEAR) Urine pH 7 (5 - 7) Urine Specific Kimberly 1.020 (1.010-1.025) Urine Protein Negative (NEGATIVE) Urine Glucose (UA) Negative (NEGATIVE) Urine Ketones Negative (NEGATIVE) Urine Blood Negative (NEGATIVE) Urine Nitrite Negative (NEGATIVE) Urine Bilirubin Negative (NEGATIVE) Urine Urobilinogen 0.2 mg/dL (0.2 - 1) Urine Leukocyte Esterase Negative (NEGATIVE) Urine RBC None /HPF (0-5) Urine WBC None /HPF (0-5) Urine Epithelial Cells Rare /LPF (NONE) Urine Transitional Epithelial Cells Rare (NONE) Urine Renal Epithelial Cells Rare (NONE) Urine Bacteria Rare /HPF (NONE) Sodium Level 143 mmol/L (136-145) Potassium Level 4.0 mmol/L (3.5-5.1) Chloride Level 107 mmol/L (98-107) Carbon Dioxide Level 25 mmol/L (22-29) Anion Gap 15.0 mmol/L (8-16) Blood Urea Nitrogen 8 mg/dL (7-26) Creatinine 0.67 mg/dL (0.57-1.11) Estimat Glomerular Filtration Rate > 60 ML/MIN (60-) BUN/Creatinine Ratio 12 (6-25) Glucose Level 94 mg/dL (74-118) Calcium Level 9.3 mg/dL (8.4-10.2) Total Bilirubin 0.3 mg/dL (0.2-1.2) Aspartate Amino Transf (AST/SGOT) 23 IU/L (5-34) Alanine Aminotransferase (ALT/SGPT) 24 IU/L (0-55) Alkaline Phosphatase 66 IU/L (40-150) Creatine Kinase 79 IU/L (29-168) Creatine Kinase MB 1.90 ng/mL (0-5.0) Troponin I < 0.001 ng/mL (0-0.300) Total Protein 6.3 g/dL (6.5-8.1) Albumin 2.7 g/dL (3.5-5.0) Globulin 3.6 g/dL (2.3-3.5) Albumin/Globulin Ratio 0.8 (0.8-2.0) Amylase Level 41 U/L (25-125) Lipase 19 U/L (8-78) Lab results reviewed: Yes Imaging Imaging results reviewed: Yes Impressions Procedure: [id number] DX/ABDOMEN ACUTE SERIES W/PA CXR Exam Date: 10/04/19 Exam Time: 1400 REPORT STATUS: Signed EXAMINATION: ABDOMEN ACUTE SERIES W/PA CXR INDICATION: Abdominal pain COMPARISON: [facility] of 09/28/2019 FINDINGS: LINES/TUBES:None LUNGS:The lungs are well-inflated. No focal consolidation or pulmonary edema. PLEURA:No pleural effusion or pneumothorax. MEDIASTINUM:The cardiomediastinal silhouette appears normal in size and shape. Coronary artery stent. BONES/SOFT TISSUES:No acute osseous injury. Sternotomy wires in place. ABDOMEN:Gaseous distention of the stomach. Otherwise, nonobstructive bowel gas pattern. No free air. Status post cholecystectomy. Surgical skin shruthi and surgical clips overlie the lower abdomen. Status post lumbar fusion. IMPRESSION: No focal pneumonia or pulmonary edema. Gaseous distention of the stomach. Signed by: Marck Nicholas MD on 10/04/2019 3:08 PM Procedures 12 Lead ECG Interpretation ECG Interpretation : ECG: ECG 1 Almond Blancher Operator: Interpreted by ED physician Date: Oct 04, 2019 Time: 12:34 Rhythm: sinus rhythm ST segment elevation: V1 (<1mm), V2 (<1mm) Other findings: LVH Clinical Impression: abnormal ECG Assessment & Plan Medical Decision Making [facility] abd pain - d/w Dr Jackson - check cbc, chem, cardiacs, ecg, abd series - r/o bowel obstr, STEMI/NSTEMI, leukocytosis, renal insuff Reassessment Reassessment improved with Bentyl. DC with Bentyl, recommend MagCitrate and Fleets enemas Assessment & Plan Final Impression: (1) Abdominal pain Depart Disposition: HOME, SELF-CARE Last Vital Signs Date Time Temp Pulse Resp B/P (MAP) Pulse Ox O2 Delivery O2 Flow Rate FiO2 10/04/19 17:00 76 20 151/95 97 10/04/19 12:31 98.4 Home Meds Active Scripts Cefuroxime Axetil (CEFUROXIME) 250 Mg Tablet, 250 MG PO Q12H for 3 Days, TAB Prov:ANTELMO HEART MD 09/29/19 Magnesium Hydroxide (MILK OF MAGNESIA) 2,400 Mg/10 Ml Oral.susp, 30 ML PO HS for 30 Days, ML Prov:ANTELMO HEART MD 09/29/19 Docusate Sodium (COLACE) 100 Mg Cap, 100 MG PO Q12H, #60 CAP Prov:ANTELMO HEART MD 09/29/19 Sennosides (SENNA LAXATIVE) 8.6 Mg Tablet, 8.6 MG PO Q12H, #60 Prov:ANTELMO HEART MD 09/29/19 Ondansetron Hcl* (ZOFRAN*) 4 Mg Tablet, 4 MG PO Q4HR PRN for nausea/vomiting, #30 Prov:ANTELMO HEART MD 09/29/19 Lactulose (LACTULOSE) 20 Gm/30 Ml Solution, 20 GM PO BID PRN for CONSTIPATION for 30 Days Prov:ANTELMO HEART MD 09/29/19 Amlodipine Besylate (NORVASC) 5 Mg Tab, 5 MG PO DAILY for 30 Days, TAB Prov:ANTELMO HEART MD 09/29/19 Sennosides (SENNA LAX) 8.6 Mg Tablet, 8.6 MG PO BID PRN for CONSTIPATION for 30 Days, TAB Prov:ANTELMO HEART MD 09/06/19 Tramadol Hcl* (ULTRAM 50MG*) 50 Mg Tab, 50 MG PO Q8H PRN for pain, #15 TAB Prov:ANTELMO HEART MD 09/06/19 Metoprolol Succinate (TOPROL XL) 25 Mg Tab.er.24h, 12.5 MG PO DAILY for 30 Days Prov:ANTELMO HEART MD 09/06/19 Docusate Sodium (COLACE) 100 Mg Cap, 100 MG PO BID PRN for constipation for 30 Days, CAP Prov:ANTELMO HEART MD 09/06/19 [Atorvastatin] 80 MG TAB No Conflict Check, 80 MG PO HS for 30 Days Prov:ANTELMO HEART MD 09/06/19 Aspirin (ASPIRIN EC) 81 Mg Tablet.dr, 81 MG PO QAM for 30 Days Prov:ANTELMO HEART MD 09/06/19 Ondansetron (ZOFRAN ODT) 4 Mg Tab.rapdis, 4 MG PO Q4-6H PRN, #12 Prov:LIBERTAD QUIÑONEZ MD 05/22/16 Pantoprazole Sodium* (PROTONIX) 40 Mg Tablet.dr, 40 MG PO DAILY for 30 Days, TAB Prov:LIBERTAD QUIÑONEZ MD 05/22/16 Reported Medications Levothyroxine Sodium (SYNTHROID) 50 Mcg Tab, 200 MCG PO 0630, #60 TAB 09/29/19 Alprazolam (XANAX) 0.5 Mg Tablet, 0.5 MG PO PRN 04/10/16 Oxycodone Hcl (OXYCODONE HCL) 20 Mg Tablet, 10 MG PO TID PRN for RN, TAB 03/11/16 Temazepam (RESTORIL) 30 Mg Capsule, 30 MG PO BEDTIME 05/22/14 Clonazepam (CLONAZEPAM) 2 Mg Tab.rapdis, 2 MG PO TID 05/22/14 Lisinopril (LISINOPRIL) 10 Mg Tablet, 10 MG PO BID, #30 TAB 05/22/14 Clopidogrel Bisulfate (Plavix) 75 Mg Tablet, 1 TAB PO DAILY 08/02/11 Levothyroxine Sodium (Levothyroxine Sodium) 200 Mcg Tablet, 175 MCG PO DAILY 08/02/11 Medications in the ED Pantoprazole Sodium 40 mg ONCE STAT IV Last administered on 10/04/19at 16:04; Admin Dose 40 MG; Start 10/04/19 at 12:32; Stop 10/04/19 at 12:43; Status DC Ondansetron HCl 4 mg ONCE STAT IV Last administered on 10/04/19at 16:04; Admin Dose 4 MG; Start 10/04/19 at 12:32; Stop 10/04/19 at 12:43; Status DC Sodium Chloride 1,000 ml @ 0 mls/hr Q0M STAT IV Last administered on 10/04/19at 16:04; Admin Dose 999 MLS/HR; Start 10/04/19 at 12:32; Stop 10/04/19 at 12:40; Status DC Dicyclomine HCl 20 mg ONCE ONCE IM Last administered on 10/04/19at 16:31; Admin Dose 20 MG; Start 10/04/19 at 16:15; Stop 10/04/19 at 16:16; Status DC SAM HASTINGS MD Oct 04, 2019 17:59
[2019-10-04 18:25] VITALS: BP 131/99
== END | disposition home or self-care (01) ==
LOC: ER 12:03
DX: R10.9 Unspecified abdominal pain (principal); R11.2 Nausea with vomiting, unspecified; R19.7 Diarrhea, unspecified; I10 Essential (primary) hypertension; I25.10 Atherosclerotic heart disease of native coronary artery without angina pectoris; R94.31 Abnormal electrocardiogram [ECG] [EKG]; M54.9 Dorsalgia, unspecified; G89.29 Other chronic pain; Z95.5 Presence of coronary angioplasty implant and graft; Z95.1 Presence of aortocoronary bypass graft
CPT/HCPCS: 36415; 74022; 80053; 81001; 82150; 82550; 82553; 83690; 84484; 85025; 85610; 85730; 87086; 93005; 99284; J0500

== ENCOUNTER 2019-11-20 10:54 | Observation (INO) | payer SELFPAY ==
[~2019-11-20] VITALS: Ht 162.6 cm; Wt 61.2 kg
[~2019-11-20 10:54] MED LIST changes: -DICYCLOMINE HCL 20 MG/2 ML VIAL IM ONE; -ONDANSETRON HCL INJ 2MG/ML 2ML 2 MG/ML VIAL IV STA; -PANTOPRAZOLE 40 MG 10ML VIAL IV STA; -SODIUM CHLORIDE 0.9% 1000ML 1,000 ML IV STA
--- OUTSIDE RECORDS SUMMARY | 2019-11-20 11:17 | XMS REPORT | Clinical Summary ---
Author [facility] Address Unknown Phone Unavailable Care Team Providers Care Body Team Member Name Role Phone PCP Unavailable Allergies Comments [...] Not on file Results Not on fileafter 11/19/2018 Insurance Payer Benefit Subscriber ID Type Phone Address Plan / Group [employer] FED xxxxxxxxx [address] [place] [address] Advance Directives For more information, please contact: [facility] [address] [place] [address] Date Inactivated Comments Code Status Date Activated 06/05/2016 12:30 AM Full Code 06/04/2016 11:27 AM This code status was determined by: Patient 06/04/2016 11:27 AM Full Code 05/30/2016 9:51 PM This code status was determined by: Patient
--- OUTSIDE RECORDS SUMMARY | 2019-11-20 11:17 | XMS REPORT | Continuity of Care Document ---
Author Author Jacob Plascencia [employer] Address Unknown Phone Unavailable Care Team Providers Care Account Manager Employee Benefits Name Role Phone [employer] Information JoKno Unavailable Un available Problems Problem Status Onset Date Classification Date Reported Comments Source Discharge Diagnosis: Dental caries, unspecified 03/27/2016 03/30/2016 [facility] Discharge Diagnosis: Other specified dis orders of teeth and supporting structures 03/27/2016 03/30/2016 [facility] Discharge Diagnosis: Periapical abscess without sinus 03/27/2016 03/30/2016 [facility] MOUTH PAIN Active 03/27/2016 [facility] ACUTE CHEST PAIN. 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 (Same as: Tylenol) Inactive 04/13/2016 [facility] Acetaminophen 300 MG / Codeine Phosphate 30 MG Oral Tablet [Tylenol with Codeine #3] 1 - 2 tab, PO, Q4H, PRN Pain, X 2 day, # 20 tab, 0 Refill(s) No Longer Active 04/13/2016 [facility] atorvastatin 40 mg oral tablet 80 mg = 2 tab, PO, Bedtime, # 60 tab, 0 Refill(s) Active 04/13/2016 [facility] Morphine Notes: (Same as:MORPh ine Sulfate) No Longer Active 04/12/2016 [facility] pantoprazole Notes: Tablet marquez uld not be chewed or crushed. (Same as: Protonix) N o Longer Active 04/12/2016 [facility] Morphine Notes: (Same as:MORPh ine Sulfate) Inactive 04/12/2016 [facility] atorvastatin Notes: (Same as: Lipitor) No Longer Active 04/12/2016 [facility] metoprolol tartrate Notes: (Sa me as: Toprol XL) May split tab, but do not crush. N o Longer Active 04/12/2016 [facility] Lisinopril Notes: (Same as: Pr inivil, Zestril) No Longer Active 04/12/2016 [facility] Plavix Notes: (Same As: Plavix) No Longer Active 04/12/2016 [facility] Norvasc Notes: (Same as: Norva sc) No Longer Active 04/12/2016 [facility] Saline Flush 0.9% Notes: (Same as: BD Posiflush) No Longer Active 04/12/2016 [facility] heparin Notes: porcine heparin No Longer Active 04/12/2016 [facility] Sucralfate 100 MG/ML Oral Suspension [Carafate] Notes: May interfere w/enteral feeds - Take 1 hr before or 2 hr after antacids, dairy pdt, meals & minerals - On empty stomach. For patients unable to swallow tablet, dissolve in 10mL - 30mL of water or juice and stir before giving. (Same As: Carafate) No Longer Activ e 04/12/2016 [facility] Thyroxine Notes: Take 1 hour b efore or 2 hours after meal; Enteral feeds may interefere with the absorption of this medication. (Same as: Levothroid) No Longe r Active 04/12/2016 [facility] Aspirin 325 MG Oral Tablet Not es: Take with food. No Longer Active 04/12/2016 [facility] Clonidine Hydrochloride 0.1 MG Oral Tablet Notes: (Same As: Catapres) No Longer Active 04/12/2016 [facility] Acetaminophen 325 MG / Hydrocodone Marcio trate 5 MG Oral Tablet [[place] 5/325] Notes: (Same as: [place] 325/5) Do not ex ceed 4gm/day of acetaminophen. No Longer Activ e 04/12/2016 [facility] Ativan Notes: (Same as: Ativan) No Longer Active 04/12/2016 [facility] Morphine Notes: (Same as:MORPh ine Sulfate) Inactive 04/12/2016 [facility] 24 HR tramadol hydrochloride 100 MG Exte nded Release Tablet 100 mg = 1 tab, PO, Q4H, 0 Refill(s) Active 04/12/2016 [facility] Amlodipine 10 MG Oral Tablet [Norvasc] See Instructions, 1 tab PO Daily, 0 Refill(s) Active 04/12/2016 [facility] Saline Flush 0.9% Notes: (Same as: BD Posiflush) No Longer Active 04/12/2016 [facility] Morphine Notes: (Same as:MORPh ine Sulfate) Inactive 04/12/2016 [facility] Nitroglycerin Notes: (Same as: Nitroquick, Nitrostat) "Do Not Crush" Sublingual tablet No Longer Active 04/12/2016 [facility] Ativan 0.5 mg, Route: IVP, Bandar g form: INJ, ONCE, Dosing Weight 72.727, kg, Priority: STAT, Start date: 04/12/16 1:56:00 INFORMATION SYSTEMS TECHNICIAN, Stop date: 04/12/16 1:56:00 INFORMATION SYSTEMS TECHNICIAN Inactive 04/12/2016 [facility] Morphine Notes: (Same as:MORPh ine Sulfate) No Longer Active 04/12/2016 [facility] Nitroglycerin Notes: (Same as: Nitroquick, Nitrostat) "Do Not Crush" Sublingual tablet No Longer Active 04/12/2016 [facility] Famotidine Notes: (Same as: Pe pcid) Can be dilute in 5- 10cc NS IVP: Slow IV push over at least 2 minutes. No Longer Active 04/12/2016 [facility] Saline Flush 0.9% Notes: Same as: BD Posiflush Sterile No Longer Active 04/12/2016 [facility] Acetaminophen 300 MG / Codeine Phosphate 30 MG Oral Tablet [Tylenol with Codeine #3] 1 - 2 tab, PO, Q4H, PRN Pain, X 3 day, # 20 tab, 0 Refill(s) Active 03/27/2016 [facility] Clindamycin 300 MG Oral Capsule [Cleocin] 300 mg = 1 cap, PO, QID, X 10 day, # 40 cap, 0 Refill(s) Active 03/27/2016 [facility] Dilaudid 0.5 mg, 0.5 mL, Route : IM, Drug form: INJ, ONCE, Dosing Weight 72.727, kg, Priority: STAT, Start date: 03/27/16 10:29:00 INFORMATION SYSTEMS TECHNICIAN, Stop date: 03/27/16 10:29:00 INFORMATION SYSTEMS TECHNICIAN Inactive 03/27/2016 [facility] Acetaminophen 325 MG / Hydrocodone Marcio trate 10 MG Oral Tablet [[place] 10/325] 1 tab, Route: PO, Drug Form: TAB, Dosing Weight 72.727, kg, ONCE, STAT, Start date: 03/27/16 10:26:00 INFORMATION SYSTEMS TECHNICIAN, Stop date: 03/27/16 10:26:00 INFORMATION SYSTEMS TECHNICIAN Inactive 03/27/2016 [facility] Clindamycin Notes: (clindamyci n 150 mg/1 ml (600 mg/4 ml VL) INJ) (Same As: Cleocin) Inactive 03/27/2016 [facility] Thyroxine Notes: Take 1 hour b efore or 2 hours after meal; Enteral feeds may interefere with the absorption of this medication. (Same as: Levothroid) No Longe r Active 12/09/2014 [facility] Plavix Notes: (Same As: Plavix) No Longer Active 12/09/2014 [facility] 24 HR Metoprolol Tartrate 50 MG Extended Release Tablet [Toprol] Notes: (Same as: Toprol XL) May split t ab, but do not crush. No Longer Active 12/09/2014 [facility] Lisinopril Notes: (Same as: Pr inivil, Zestril) Inactive 12/08/2014 [facility] pantoprazole Notes: Tablet marquez uld not be chewed or crushed. (Same as: Protonix) Inactive 12/08/2014 [facility] Sucralfate 100 MG/ML Oral Suspension [Carafate] Notes: Enteral feeds may interfere with the absorption of this medication. Shake well. Take 1 hr before or 2 hrs after antacids, dairy pdt, minerals & meals. (Same As: Carafate) Inactive 12/08/2014 [facility] Erythromycin 250 MG Enteric Coated Tablet Notes: (Same as: Brenton-Tab) Give With Food "Do Not Crush" Inactive 12/08/2014 [facility] Sucralfate 100 MG/ML Oral Suspension [Carafate] 1 gm = 10 ml, PO, QID-Before Meals, # 1200 mL, 0 Refill(s) Active 12/08/2014 [facility] tramadol hydrochloride 50 MG Oral Tablet 50 mg = 1 tab, PO, Q6H, PRN Pain, # 30 tab, 0 Refill(s) Active 12/08/2014 [facility] Aspirin 325 MG Oral Tablet Not es: Take with food. Inactive 12/08/2014 [facility] Hyoscyamine Notes: (Same as: L evsin) Take 30 min before meal Inactive 12/08/2014 [facility] Valium Notes: (Same as: Valium) Inactive 12/08/2014 [facility] Clonidine Hydrochloride 0.1 MG Oral Tablet Notes: (Same As: Catapres) Inactive 12/08/2014 [facility] Diazepam 10 MG Oral Tablet [Valium] 10 mg = 1 tab, PO, TID, PRN Anxiety, 0 Refill(s) Active 12/08/2014 [facility] Temazepam 30 MG Oral Capsule [Restoril] 30 mg = 1 cap, PO, Bedtime, PRN Sleep, 0 Refill(s) Active 12/08/2014 [facility] clopidogrel 75 MG Oral Tablet [Plavix] 75 mg = 1 tab, PO, Daily, # 30 tab, 0 Refill(s) Active 12/08/2014 [facility] tramadol hydrochloride 50 MG Oral Tablet 50 mg = 1 tab, PO, Q6H, PRN Pain, 0 Refill(s) Inactive 12/08/2014 [facility] promethazine 25 mg oral tablet 25 mg = 1 tab, PO, Q4H, PRN Nausea/Vomiting, 0 Refill(s) Active 12/08/2014 [facility] pantoprazole 40 mg oral enteric coated tablet 40 mg = 1 tab, PO, Before Dinner, 0 Refill(s) Active 12/08/2014 [facility] metoprolol 50 mg oral tablet, extended release 50 mg = 1 tab, PO, BID, 0 Refill(s) Active 12/08/2014 [facility] lisinopril 20 mg oral tablet 2 0 mg = 1 tab, PO, BID, # 60 tab, 0 Refill(s) Active 12/08/2014 [facility] levothyroxine 200 mcg (0.2 mg) oral tablet 200 microgram = 1 tab, PO, Daily, # 30 tab, 0 Refill(s) Active 12/08/2014 [facility] hyoscyamine 0.125 mg sublingual tablet 0.125 mg = 1 tab, SL, Before Meals & Bedtime, 0 Refill(s) Active 12/08/2014 [facility] erythromycin 250 mg oral delayed release capsule 250 mg = 1 cap, PO, Q6H, # 40 cap, 0 Refill(s) Active 12/08/2014 [facility] Clonidine Hydrochloride 0.1 MG Oral Tablet 0.1 mg = 1 tab, PO, TID, PRN Hypertension, 0 Refill(s) Active 12/08/2014 [facility] Aspirin 325 MG Oral Tablet 325 mg = 1 tab, PO, Daily, # 30 tab, 0 Refill(s) Active 12/08/2014 [facility] Phenergan Notes: Do not give I V push. (Same as: Phenergan) Inactive 12/08/2014 [facility] Morphine Notes: (Same as:MORPh ine Sulfate) Inactive 12/08/2014 [facility] Sodium Chloride 0.154 MEQ/ML Injectable Solution 1,000 mL, Rate: 125 ml/hr, Infuse over: 8 hr, Route: IV, Dosing Weight 81.818 kg, Total Volume: 1,000, Start date: 12/08/14 4:07:00, Duration: 30 day, Stop date: 01/07/15 4:06:00 Inactive 12/08/2014 [facility] Saline Flush 0.9% Notes: (Same as: BD Posiflush) Inactive 12/08/2014 [facility] nitroglycerin 0.4 mg sublingual tablet Notes: (Same as:Nitroquick Nitrostat) "Do Not Crush" Sublingual tablet Inactive 12/08/2014 [facility] atropine 0.5 mg, 5 mL, Route: IVP, Drug form: INJ, PRN, PRN Bradycardia, Start date: 12/08/14 3:28:00, Duration: 30 day, Stop date: 01/07/15 3:27:00 Inactive 12/08/2014 [facility] Furosemide 20 MG Oral Tablet [Lasix] 20 mg = 1 tab, PO, Daily, 0 Refill(s) Inactive 12/08/2014 [facility] Labetalol Notes: (Same as: Nor carola Trandate) Push over 2 minutes Give bolus over 2-3 minutes. Inactive 12/08/2014 [facility] Nitroglycerin 0.4 MG Sublingual Tablet [Nitrostat] Notes: (Same as:Nitroquick, Nitrostat) "Do Not Crush" Sublingual tablet Inactive 12/08/2014 [facility] Phenergan 12.5 mg, Route: IVPB , ONCE, Dosing Weight 77.273, kg, Priority: STAT, Start date: 12/08/14 0:34:00, Stop date: 12/08/14 0:34:00 Inactive 12/08/2014 [facility] Morphine 4 mg, Route: IVP, Bandar g form: INJ, ONCE, Dosing Weight 77.273, kg, Priority: STAT, Start date: 12/08/14 0:34:00, Stop date: 12/08/14 0:34:00 Inactive 12/08/2014 [facility] Morphine 4 mg, Route: IVP, Bandar g form: INJ, ONCE, Dosing Weight 77.273, kg, Priority: STAT, Start date: 12/08/14 0:26:00, Stop date: 12/08/14 0:26:00 Inactive 12/08/2014 [facility] Phenergan 12.5 mg, Route: IVPB , ONCE, Dosing Weight 77.273, kg, Priority: STAT, Start date: 12/08/14 0:25:00, Stop date: 12/08/14 0:25:00 Inactive 12/08/2014 [facility] Bentyl 20 mg, Route: PO, ONCE, Dosing Weight 77.273, kg, Start date: 12/07/14 23:41:00, Stop date: 12/07/14 23:41:00 No Longer Active 12/08/2014 [facility] Morphine 4 mg, Route: IVP, Bandar g form: INJ, ONCE, Dosing Weight 77.273, kg, Priority: STAT, Start date: 12/07/14 22:35:00, Stop date: 12/07/14 22:35:00 Inactive 12/08/2014 [facility] GI cocktail Notes: [place] = antacid with simethicone 22.5 mL - lidocaine viscous 7.5 mL Inactive 12/08/2014 [facility] Morphine 4 mg, Route: IVP, Bandar g form: INJ, ONCE, Dosing Weight 77.273, kg, Priority: STAT, Start date: 12/07/14 20:58:00, Stop date: 12/07/14 20:58:00 Inactive 12/08/2014 [facility] Protonix 40 mg, Route: IVP, ON CE, Dosing Weight 77.273, kg, Priority: STAT, Start date: 12/07/14 20:58:00, Stop date: 12/07/14 20:58:00 Inactive 12/08/2014 [facility] Clonidine 0.1 mg, Route: PO, D rug form: TAB, ONCE, Dosing Weight 77.273, kg, Priority: STAT, Start date: 12/07/14 19:49:00, Stop date: 12/07/14 19:49:00 Inactive 12/08/2014 [facility] Phenergan 12.5 mg, Route: IVPB , ONCE, Dosing Weight 77.273, kg, Priority: STAT, Start date: 12/07/14 19:49:00, Stop date: 12/07/14 19:49:00 Inactive 12/08/2014 [facility] Sodium Chloride 0.154 MEQ/ML Injectable Solution 1,000 mL, 1,000 ml/hr, Infuse Over: 1 hr, Route: IV, ONCE, Priority: STAT, Dosing Weight 77.273 kg, Start date: 12/07/14 19:48:00, Duration: 1 doses or times, Stop date: 12/07/14 19:48:00 Inactive 12/08/2014 [facility] metoprolol tartrate 50 mg oral tablet 50 mg = 1 tab, PO, Q12H, # 120 tab, 0 Refill(s) Active 12/01/2014 [facility] lisinopril 20 mg oral tablet 2 0 mg = 1 tab, PO, BID, # 60 tab, 0 Refill(s) Active 12/01/2014 [facility] clopidogrel 75 MG Oral Tablet [Plavix] 75 mg = 1 tab, PO, Daily, # 30 tab, 0 Refill(s) Active 12/01/2014 [facility] Aspirin 325 MG Oral Tablet 325 mg, PO, Daily, # 30 tab, 0 Refill(s) Active 12/01/2014 [facility] Temazepam 30 MG Oral Capsule [Restoril] 30 mg = 1 cap, PO, Bedtime, X 7 day, # 7 cap, 0 Refill(s) Active 12/01/2014 [facility] Diazepam 10 MG Oral Tablet [Valium] 10 mg = 1 tab, PO, TID, PRN Anxiety, X 7 day, # 21 tab, 0 Refill(s) Active 12/01/2014 [facility] levothyroxine 200 mcg (0.2 mg) oral tablet 200 microgram = 1 tab, PO, Daily, # 30 tab, 0 Refill(s) Active 12/01/2014 [facility] Clonidine Hydrochloride 0.1 MG Oral Tablet 0.1 mg = 1 tab, PO, TID, PRN Hypertension, # 90 tab, 0 Refill(s) Active 12/01/2014 [facility] tramadol hydrochloride 50 MG Oral Tablet 50 mg = 1 tab, PO, Q6H, PRN Pain, X 10 day, # 40 tab, 0 Refill(s) Active 12/01/2014 [facility] erythromycin 250 mg oral tablet 250 mg = 1 tab, PO, Q6H, X 10 day, # 40 tab, 0 Refill(s) Active 12/01/2014 [facility] promethazine 25 mg oral tablet 25 mg = 1 tab, PO, Q4H, PRN Allergic reaction, X 7 day, # 42 tab, 0 Refill(s) Active 12/01/2014 [facility] pantoprazole 40 mg oral enteric coated tablet 40 mg = 1 tab, PO, Before Dinner, # 30 tab, 0 Refill(s) Active 12/01/2014 [facility] hyoscyamine 0.125 mg sublingual tablet 0.125 mg = 1 tab, PO, Before Meals & Bedtime, # 120 tab, 0 Refill(s) Active 12/01/2014 [facility] hydrOXYzine hydrochloride 10 mg/5 mL oral syrup Notes: (Same as: Atarax) No Longer Active 11/29/2014 [facility] Erythromycin Ethylsuccinate 40 MG/ML Oral Suspension Notes: (Same as: E.E.S.-400) N o Longer Active 11/29/2014 [facility] Hydroxyzine Notes: (Same as: V istaril) Avoid alcohol. Inactive 11/29/2014 [facility] Tylenol Notes: Do not exceed 4 gm/day. (Same as: Tylenol) No Longer Active 11/28/2014 [facility] Dilaudid 1 mg, 1 mL, Route: IV , Drug form: INJ, Q4H, Dosing Weight 81.818, kg, PRN Pain Score 7-10, Start date: 11/28/14 11:53:00, Duration: 30 day, Stop date: 12/28/14 11:52:00 No Longer Active 11/28/2014 [facility] Levsin Notes: (Same as: Levsin ) Take 30 min before meal No Longer Active 11/28/2014 [facility] Protonix Notes: Tablet should not be chewed or crushed. (Same as: Protonix) No Longer Active 11/26/2014 [facility] Levsin Notes: (Same as: Levsin ) Take 30 min before meal No Longer Active 11/26/2014 [facility] Sodium Chloride 0.154 MEQ/ML Injectable Solution 500 mL, Rate: 25 ml/hr, Infuse over: 20 hr, Route: IV, Dosing Weight 81.818 kg, Total Volume: 500, Start date: 11/26/14 8:15:00, Duration: 1 day, Stop date: 11/27/14 8:14:00 No Longer Active 11/26/2014 [facility] Dilaudid 1 mg, 1 mL, Route: IV P, Drug form: INJ, ONCE, Dosing Weight 81.818, kg, Priority: STAT, Start date: 11/25/14 17:51:00, Stop date: 11/25/14 17:51:00 Inactive 11/25/2014 [facility] Plavix Notes: (Same As: Plavix) No Longer Active 11/25/2014 [facility] Aspirin 325 MG Oral Tablet Not es: Take with food. No Longer Active 11/25/2014 [facility] Thyroxine Notes: Take 1 hour b efore or 2 hours after meal; Enteral feeds may interefere with the absorption of this medication. (Same as: Levothroid) No Longe r Active 11/25/2014 [facility] Famotidine 20 MG Oral Tablet N otes: (Same as: Pepcid) No Longer Active 11/25/2014 [facility] Restoril Notes: (Same As: Rest oril) No Longer Active 11/25/2014 [facility] metoprolol tartrate Notes: (Sa me as: Lopressor) No Longer Active 11/25/2014 [facility] Lisinopril Notes: (Same as: Pr inivil, Zestril) No Longer Active 11/25/2014 [facility] Lipitor Notes: (Same as: Lipit or) No Longer Active 11/25/2014 [facility] Dilaudid 0.5 mg, 0.5 mL, Route : IV, Drug form: INJ, Q3H, Dosing Weight 81.818, kg, PRN Pain Score 7-10, Start date: 11/24/14 17:16:00, Duration: 30 day, Stop date: 12/24/14 17:15:00 No Longer Active 2014 [facility] Acetaminophen 325 MG / Hydrocodone Marcio trate 10 MG Oral Tablet [[place] 10/325] Notes: Do not exceed 4gm/day of acetamin ophen. (Same as: [place] 325/10) No Longer Active 2014 [facility] Valium Notes: (Same as: Valium) No Longer Active 2014 [facility] Phenergan Notes: Do not give I V push. (Same as: Phenergan) No Longer Active 2014 [facility] Saline Flush 0.9% Notes: (Same as: BD Posiflush) No Longer Active 2014 [facility] Dilaudid 0.5 mg, 0.5 mL, Route : IV, Drug form: INJ, Q4H, Dosing Weight 81.818, kg, PRN Pain Score 7-10, Start date: 11/23/14 18:49:00, Duration: 30 day, Stop date: 12/23/14 18:48:00 No Longer Active 11/23/2014 [facility] Phenergan Notes: (Same as: Phe nergan) No Longer Active 11/23/2014 [facility] Magnesium Sulfate 2 gm, 50 mL, Route: IVPB, Drug form: INJ, ONCE, Dosing Weight 81.818, kg, Total dose = 2 gm, Start date: 11/23/14 18:46:00, Duration: 1 doses or times, Stop date: 11/23/14 18:46:00 Inactive 11/23/2014 [facility] normal saline 0.9% IV 1,000 mL 1,000 mL, Rate: 80 ml/hr, Infuse over: 12.5 hr, Route: IV, Dosing Weight 81.818 kg, Total Volume: 1,000, Start date: 11/23/14 18:39:00, Stop date: 12/23/14 18:38:00 No Longer Active 11/23/2014 [facility] nitroglycerin 0.4 mg sublingual tablet Notes: (Same as:Nitroquick, Nitrostat) "Do Not Crush" Sublingual tablet No Longer Active 11/23/2014 [facility] atropine 0.5 mg, 5 mL, Route: IVP, Drug form: INJ, PRN, PRN Bradycardia, Start date: 11/23/14 18:36:00, Duration: 30 day, Stop date: 12/23/14 18:35:00 No Longer Active 11/23/2014 [facility] Pepcid Notes: (Same as: Pepcid ) Can be dilute in 5-10cc NS IVP: Slow IV push over at least 2 minutes. No Longer Active 11/23/2014 [facility] Dilaudid 1 mg, Route: IVP, ONC E, Dosing Weight 81.818, kg, Priority: STAT, Start date: 11/23/14 17:57:00, Stop date: 11/23/14 17:57:00 Inactive 11/23/2014 [facility] Benadryl 25 mg, Route: IVP, ON CE, Dosing Weight 81.818, kg, PRN Allergic reaction, Start date: 11/23/14 17:56:00 Inactive 11/23/2014 [facility] Reglan 10 mg, Route: IVP, ONCE , Dosing Weight 81.818, kg, Start date: 11/23/14 17:55:00, Stop date: 11/23/14 17:55:00 Inactive 11/23/2014 [facility] Clonidine Hydrochloride 0.1 MG Oral Tablet 160 No Longer Active 11/23/2014 [facility] Droperidol 0.625 mg, Route: IV P, ONCE, Dosing Weight 81.818, kg, PRN Nausea, Start date: 11/23/14 17:42:00, Stop date: 12/23/14 17:41:00 Inactive 11/23/2014 [facility] Saline Flush 0.9% Notes: (Same as: BD Posiflush) No Longer Active 11/23/2014 [facility] Morphine Notes: (Same as:MORPh ine Sulfate) No Longer Active 11/23/2014 [facility] Nitroglycerin Notes: (Same as: Nitroquick, Nitrostat) "Do Not Crush" Sublingual tablet Inactive 11/23/2014 [facility] Morphine Notes: (Same as:MORPh ine Sulfate) Inactive 11/23/2014 [facility] Clonidine Hydrochloride 0.1 MG Oral Tablet Notes: (Same As: Catapres) No Longer Active 11/23/2014 [facility] Labetalol Notes: (Same as: Nor modyne, Trandate) Push over 2 minutes Give bolus over 2-3 minutes. No Longer Active 11/23/2014 [facility] Ativan 1 mg, Route: PO, Drug f orm: TAB, ONCE, Dosing Weight 81.818, kg, Priority: STAT, Start date: 11/23/14 14:33:00, Stop date: 11/23/14 14:33:00 Inactive 11/23/2014 [facility] Nitroglycerin Notes: (Same as: Nitroquick, Nitrostat) "Do Not Crush" Sublingual tablet Inactive 11/23/2014 [facility] Morphine 4 mg, Route: IVP, Bandar g form: INJ, ONCE, Dosing Weight 81.818, kg, Priority: STAT, Start date: 11/23/14 13:13:00, Stop date: 11/23/14 13:13:00 Inactive 11/23/2014 [facility] Saline Flush 0.9% Notes: (Same as: BD Posiflush) Inactive 11/23/2014 [facility] multivitamin with minerals Not es: (Same as:Thera-M, Theragran-M) Give with food. No Longer Active 09/19/2014 [facility] Thyroxine Notes: Take 1 hour b efore or 2 hours after meal; Enteral feeds may interefere with the absorption of this medication.(Same as:Levothroid, Synthroid) No Longer Active 09/19/2014 [facility] Aspirin 325 MG Oral Tablet 325 mg, Route: PO, Drug form: TAB, Daily, Dosing Weight 79.545, kg, Start date: 09/19/14 9:00:00, Duration: 30 day, Stop date: 10/18/14 9:00:00 No Longer Active 09/19/2014 [facility] Plavix 75 mg, Route: PO, Drug form: TAB, Daily, Dosing Weight 79.545, kg, Start date: 09/19/14 9:00:00, Duration: 30 day, Stop date: 10/18/14 9:00:00 No Longer Active 09/19/2014 [facility] potassium chloride 80 mEq, Rou te: PO, Daily, Dosing Weight 79.545, kg, Start date: 09/19/14 9:00:00, Duration: 30 day, Stop date: 10/18/14 9:00:00 No Longer Active 09/19/2014 [facility] metoprolol tartrate 50 mg, Rou te: PO, Drug form: TAB, Q12H, Dosing Weight 79.545, kg, Start date: 09/18/14 21:00:00, Duration: 30 day, Stop date: 10/18/14 9:00:00 Inactive 09/19/2014 [facility] Lipitor 80 mg, Route: PO, Drug form: TAB, Bedtime, Dosing Weight 79.545, kg, Start date: 09/18/14 21:00:00, Duration: 30 day, Stop date: 10/17/14 21:00:00 Inactive 09/19/2014 [facility] Restoril 30 mg, Route: PO, Bandar g form: CAP, Bedtime, Dosing Weight 79.545, kg, Start date: 09/18/14 21:00:00, Duration: 30 day, Stop date: 10/17/14 21:00:00 Inactive 09/19/2014 [facility] Lisinopril 20 mg, Route: PO, D rug form: TAB, BID, Dosing Weight 79.545, kg, Start date: 09/18/14 17:00:00, Duration: 30 day, Stop date: 10/18/14 9:00:00 Inactive 09/18/2014 [facility] acetaminophen-hydrocodone 325 mg-10 mg oral tablet Notes: Do not exceed 4gm/day of acetaminophen. (Same as: [employer] [place] 325/10) Inactive 09/18/2014 [facility] Hydralazine Hydrochloride 10 MG Oral Tablet Notes: (Same as: Apresoline) May interfere w/enteral feedings. Take With Food Inactive 09/18/2014 [facility] Acetaminophen 325 MG / Hydrocodone Marcio trate 10 MG Oral Tablet [Camp [place] 10/325] Notes: Do not exceed 4gm/day of acetamin ophen. (Same as: [employer] [place] 325/10) Inactive 09/18/2014 [facility] metoprolol tartrate 50 mg oral tablet 50 mg = 1 tab, PO, Q12H, # 120 tab, 0 Refill(s) O n Hold 09/18/2014 [facility] clopidogrel 75 MG Oral Tablet [Plavix] 75 mg = 1 tab, PO, Daily, # 30 tab, 0 Refill(s) On Hold 09/18/2014 [facility] atorvastatin 80 MG Oral Tablet [Lipitor] 80 mg = 1 tab, PO, Bedtime, # 30 tab, 0 Refill(s) On Hold 09/18/2014 [facility] lisinopril 20 mg oral tablet 2 0 mg = 1 tab, PO, BID, # 60 tab, 0 Refill(s) On Hold 09/18/2014 [facility] Aspirin 325 MG Oral Tablet 325 mg, PO, Daily, # 30 tab, 0 Refill(s) On Hold 09/18/2014 [facility] Hydralazine Hydrochloride 10 MG Oral Tablet 160 mmHg, # 120 tab, 0 Refill(s) On Hold 09/18/2014 [facility] Saline Flush 0.9% Notes: (Same as: [facility] Posiflush) Inactive 09/18/2014 [facility] Valium Notes: (Same as: Valium) Inactive 09/18/2014 [facility] metoprolol tartrate Notes: (Sa me as: Lopressor) Inactive 09/18/2014 [facility] Lisinopril Notes: (Same as: Pr inivil, Zestril) Inactive 09/18/2014 [facility] clopidogrel 75 MG Oral Tablet [Plavix] 75 mg = 1 tab, PO, Daily Inactive 09/18/2014 [facility] lisinopril 20 mg oral tablet 2 0 mg = 1 tab, PO, BID, 0 Refill(s) Inactive 09/18/2014 [facility] Temazepam 30 MG Oral Capsule [Restoril] 30 mg = 1 cap, PO, Bedtime On Hold 09/18/2014 [facility] Diazepam 10 MG Oral Tablet [Valium] 10 mg = 1 tab, PO, TID, PRN Anxiety On Hold 09/18/2014 [facility] metoprolol tartrate 50 mg oral tablet 50 mg = 1 tab, PO, Q12H Inactive 09/18/2014 [facility] levothyroxine 200 mcg (0.2 mg) oral tablet 200 microgram = 1 tab, PO, Daily, # 30 tab On Hold 09/18/2014 [facility] Aspirin 325 mg, PO, Daily, 0 R efill(s) Inactive 09/18/2014 [facility] Centrum Adults 1 tab, PO, Olivia y, 0 Refill(s) On Hold 09/18/2014 [facility] atorvastatin 80 MG Oral Tablet [Lipitor] 80 mg = 1 tab, PO, Bedtime Inactive 09/18/2014 [facility] Acetaminophen 325 MG / Hydrocodone Marcio trate 10 MG Oral Tablet [[employer] [place] 10/325] 1-2 tab, PO, Q4-6H, PRN Pain On Hold 09/18/2014 [facility] potassium chloride 80 mEq, PO, Daily On Hold 09/18/2014 [facility] Phenergan Notes: Do not give I V push. (Same as: Phenergan) Inactive 09/18/2014 [facility] Metoprolol 5 mg, Route: IV, ON CE, Dosing Weight 79.545, kg, Start date: 09/18/14 5:09:00, Stop date: 09/18/14 5:09:00 Inactive 09/18/2014 [facility] Morphine 4 mg, Route: IVP, ONC E, Dosing Weight 79.545, kg, Start date: 09/18/14 5:08:00, Stop date: 09/18/14 5:08:00 Inactive 09/18/2014 [facility] Saline Flush 0.9% Notes: (Same as: [facility] Posiflush) Inactive 09/18/2014 [facility] Nitroglycerin Notes: (Same as: Nitroquick, Nitrostat) "Do Not Crush" Sublingual tablet Inactive 09/18/2014 [facility] Aspirin 325 MG Oral Tablet Not es: Take with food. Inactive 09/18/2014 [facility] Ativan 0.5 mg, Route: IVP, Bandar g form: INJ, ONCE, Dosing Weight 79.545, kg, PRN Anxiety, Start date: 09/18/14 2:14:00 Inactive 09/18/2014 [facility] Nitroglycerin 0.02 MG/MG Topical Ointment 0.5 inch, Route: TOP, Dosing Weight 79.545, kg, ONCE, Start date: 09/18/14 0:22:00, Stop date: 09/18/14 0:22:00 Inactiv e 09/18/2014 [facility] Aspirin 325 MG Oral Tablet 325 mg, Route: PO, Drug form: TAB, ONCE, Dosing Weight 79.545, kg, Priority: STAT, Start date: 09/18/14 0:10:00, Stop date: 09/18/14 0:10:00 Inactive 09/18/2014 [facility] Allergies, Adverse Reactions, Alerts Substance Category Reaction Severity Reaction type Status Date Reported Comments Source Compazine Assertion Drug allergy Active [facility] penicillins Assertion Drug allergy Active [facility] Reglan Assertion Drug allergy Active [facility] Toradol Assertion Drug allergy Active [facility] Zofran Assertion Drug allergy Active [facility] Immunizations No Data Provided for This Section Results Order Name Results Value Reference Range Date Interpretation Comments Source CARDIAC ENZYMES Total CK 63 12 - 191 04/12/2016 [facility] CARDIAC ENZYMES Troponin-I <0.02 0.00 - 0.40 04/12/2016 [facility] CARDIAC ENZYMES BNP 27 <=100 pg/mL 04/12/2016 [facility] CARDIAC ENZYMES Troponin-I <0.02 0.00 - 0.40 04/12/2016 [facility] CARDIAC ENZYMES CK MB 0.7 0.5 - 3.6 04/12/2016 [facility] CARDIAC ENZYMES Total CK 87 12 - 191 04/12/2016 [facility] CARDIAC ENZYMES CK MB Index 0.8 0.0 - 2.5 04/12/2016 [facility] CHEM PANEL Lipase Lvl 199 73 - 393 04/12/2016 [facility] CHEM [facility] eGFR 99 04/12/2016 Result Comment: The eGFR [...] should be multiplied by the estimated BMI. [facility] CHEM PANEL Creatinine Lvl 0.69 0.50 - 1.40 04/12/2016 [facility] CHEM PANEL Sodium Lvl 140 135 - 145 04/12/2016 [facility] CHEM PANEL Glucose Lvl 96 70 - 99 04/12/2016 [facility] CHEM PANEL BUN 22 7 - 22 04/12/2016 [facility] CHEM PANEL Chloride Lvl 110 95 - 109 04/12/2016 [facility] CHEM PANEL Alk Phos 87 39 - 136 04/12/2016 [facility] CHEM PANEL Potassium Lvl 4.3 3.5 - 5.1 04/12/2016 [facility] CHEM PANEL AST 21 0 - 37 04/12/2016 [facility] CHEM PANEL Bili Total 0.4 0.2 - 1.3 04/12/2016 [facility] CHEM PANEL CO2 22 24 - 32 04/12/2016 [facility] CHEM PANEL Calcium Lvl 8.8 8.5 - 10.5 04/12/2016 [facility] CHEM PANEL Total Protein 6.6 6.4 - 8.4 04/12/2016 [facility] CHEM PANEL B/C Ratio 32 6 - 25 04/12/2016 [facility] CHEM PANEL AGAP 12.3 10.0 - 20.0 04/12/2016 [facility] CHEM PANEL Globulin 3.4 2.7 - 4.2 04/12/2016 [facility] CHEM PANEL A/G Ratio 0.9 0.7 - 1.6 04/12/2016 [facility] CHEM PANEL Albumin Lvl 3.2 3.5 - 5.0 04/12/2016 [facility] CHEM PANEL ALT 24 0 - 65 04/12/2016 [facility] HEMATOLOGY PT 12.1 12.0 - 14.7 04/12/2016 [facility] HEMATOLOGY INR 0.88 0.85 - 1.17 04/12/2016 [facility] HEMATOLOGY PTT 25.1 22.9 - 35.8 04/12/2016 [facility] HEMATOLOGY Platelet 299 133 - 450 04/12/2016 [facility] HEMATOLOGY MPV 8.0 7.4 - 10.4 04/12/2016 [facility] HEMATOLOGY MCHC 34.0 32.0 - 36.0 04/12/2016 [facility] HEMATOLOGY RDW 14.9 11.5 - 14.5 04/12/2016 [facility] HEMATOLOGY MCH 31.9 27.0 - 31.0 04/12/2016 [facility] HEMATOLOGY Hct 36.7 36.0 - 48.0 04/12/2016 [facility] HEMATOLOGY MCV 93.8 80.0 - 98.0 04/12/2016 [facility] HEMATOLOGY WBC 8.8 3.7 - 10.4 04/12/2016 [facility] HEMATOLOGY Hgb 12.5 12.0 - 16.0 04/12/2016 [facility] HEMATOLOGY RBC 3.92 4.20 - 5.40 04/12/2016 [facility] HEMATOLOGY Lymphocytes # 4.7 1.0 - 5.5 04/12/2016 [facility] HEMATOLOGY Monocytes # 0.6 0.0 - 0.8 04/12/2016 [facility] HEMATOLOGY Eosinophils # 0.3 0.0 - 0.5 04/12/2016 [facility] HEMATOLOGY Basophils # 0.2 0.0 - 0.2 04/12/2016 [facility] HEMATOLOGY Segs 34.8 45.0 - 75.0 04/12/2016 [facility] HEMATOLOGY Segs-Bands # 3.1 1.5 - 8.1 04/12/2016 [facility] HEMATOLOGY Monocytes 6.9 2.0 - 12.0 04/12/2016 [facility] HEMATOLOGY Basophils 1.7 0.0 - 1.0 04/12/2016 [facility] HEMATOLOGY Lymphocytes 53.2 20.0 - 40.0 04/12/2016 [facility] HEMATOLOGY Eosinophils 3.4 0.0 - 4.0 04/12/2016 [facility] DRUG SCREEN UDS Note See Note (04/12/16 12:13 AM) 04/12/2016 [facility] DRUG SCREEN U Phencyc Scr Nega tive *NA* (04/12/16 12:13 AM) Negative 04/12/2016 [facility] DRUG SCREEN U Opiate Scr Nega tive *NA* (04/12/16 12:13 AM) Negative 04/12/2016 [facility] DRUG SCREEN U Cocaine Scr Nega tive *NA* (04/12/16 12:13 AM) Negative 04/12/2016 [facility] DRUG SCREEN U Benzodia Scr Posi tive *ABN* (04/12/16 12:13 AM) Negative 04/12/2016 [facility] DRUG SCREEN U Cannab Scr Posi tive *ABN* (04/12/16 12:13 AM) Negative 04/12/2016 [facility] DRUG SCREEN U Amph Scr Nega tive *NA* (04/12/16 12:13 AM) Negative 04/12/2016 [facility] DRUG SCREEN U Nisreen Scr Nega tive *NA* (04/12/16 12:13 AM) Negative 04/12/2016 [facility] URINE AND STOOL UA Ketones Negative mg/dL Negative mg/dL 04/12/2016 [facility] URINE AND STOOL UA Color Ltyellow 04/12/2016 [facility] URINE AND STOOL UA Urobilinogen <=1.0 mg/dL 0.1 - 1.0 04/12/2016 [facility] URINE AND STOOL UA Bili Negative *NA* (04/12/16 12:13 AM) Negative 04/12/2016 [facility] URINE AND STOOL UA Nitrite Negative (04/12/16 12:13 AM) Negative 04/12/2016 [facility] URINE AND STOOL UA Blood Negative (04/12/16 12:13 AM) Negative 04/12/2016 [facility] URINE AND STOOL UA WBC 4 0 - 5 04/12/2016 [facility] URINE AND STOOL UA Sq Epi Occasional /LPF Few /LPF 04/12/2016 [facility] URINE AND STOOL UA Leuk Est Trace *ABN* (04/12/16 12:13 AM) Negative 04/12/2016 [facility] URINE AND STOOL UA RBC 2 0 - 2 04/12/2016 [facility] URINE AND STOOL UA pH 6.0 5.0 - 8.0 04/12/2016 [facility] URINE AND STOOL UA Protein Negative mg/dL Negative mg/dL 04/12/[address] [facility] [address] URINE AND STOOL UA Glucose Negative mg/dL Negative mg/dL 04/12/[address] [facility] [address] URINE AND STOOL UA Spec Grav 1.020 <=1.030 04/12/2016 [facility] URINE AND STOOL UA Turbidity Clear (04/12/16 12:13 AM) Clear 04/12/2016 [facility] CARDIAC ENZYMES Total CK 89 12 - 191 12/08/2014 [facility] CARDIAC ENZYMES Troponin-I <0.02 0.00 - 0.40 12/08/2014 [facility] CARDIAC ENZYMES CK MB Index 1.5 0.0 - 2.5 12/08/2014 [facility] CARDIAC ENZYMES CK MB 1.3 0.5 - 3.6 12/08/2014 [facility] CHEM PANEL eGFR 99 12/08/2014 Result [...] should be multiplied by the estimated BMI. [facility] CHEM PANEL BUN 12 7 - 22 12/08/2014 [facility] CHEM PANEL Creatinine Lvl 0.7 0.5 - 1.4 12/08/2014 [facility] CHEM PANEL Glucose Lvl 130 70 - 99 12/08/2014 [facility] CHEM PANEL Chloride Lvl 110 95 - 109 12/08/2014 [facility] CHEM PANEL Potassium Lvl 4.0 3.5 - 5.1 12/08/2014 [facility] CHEM PANEL CO2 21 24 - 32 12/08/2014 [facility] CHEM PANEL Sodium Lvl 140 135 - 145 12/08/2014 [facility] CHEM PANEL Calcium Lvl 8.7 8.5 - 10.5 12/08/2014 [facility] CHEM PANEL AGAP 13.0 10.0 - 20.0 12/08/2014 [facility] Platelet 316 133 - 450 12/08/2014 [facility] RDW 16.5 11.5 - 14.5 12/08/2014 [facility] MPV 7.9 7.4 - 10.4 12/08/2014 [facility] Hct 38.0 36.0 - 48.0 12/08/2014 [facility] MCV 82.9 80.0 - 98.0 12/08/2014 [facility] MCH 27.0 27.0 - 31.0 12/08/2014 [facility] MCHC 32.6 32.0 - 36.0 12/08/2014 [facility] WBC 6.0 3.7 - 10.4 12/08/2014 [facility] RBC 4.59 4.20 - 5.40 12/08/2014 [facility] Hgb 12.4 12.0 - 16.0 12/08/2014 [facility] Lymphocytes # 2.5 1.0 - 5.5 12/08/2014 [facility] Segs-Bands # 2.5 1.5 - 8.1 12/08/2014 [facility] HEMATOLOGY Eosinophils # 0.3 0.0 - 0.5 12/08/2014 [facility] Monocytes # 0.6 0.0 - 0.8 12/08/2014 [facility] Basophils # 0.1 0.0 - 0.2 12/08/2014 [facility] Lymphocytes 42.1 20.0 - 40.0 12/08/2014 [facility] HEMATOLOGY Monocytes 10.5 2.0 - 12.0 12/08/2014 [facility] HEMATOLOGY Basophils 1.1 0.0 - 1.0 12/08/2014 [facility] HEMATOLOGY Eosinophils 4.2 0.0 - 4.0 12/08/2014 [facility] HEMATOLOGY Segs 42.1 45.0 - 75.0 12/08/2014 [facility] LIPIDS VLDL 31 12/08/2014 [facility] LIPIDS LDL (Calculated) 214 <=99 mg/dL 12/08/2014 [facility] LIPIDS HDL 43 >=61 mg/dL 12/08/2014 [facility] LIPIDS Chol 288 <=199 mg/dL 12/08/2014 [facility] LIPIDS Trig 153 <=149 mg/dL 12/08/2014 [facility] LIPIDS CHD Risk 6.70 3.90 - 5.80 12/08/2014 [facility] CARDIAC ENZYMES Troponin-I <0.02 0.00 - 0.40 12/08/2014 [facility] CHEM PANEL Lipase Lvl 64 73 - 393 12/08/2014 [facility] CARDIAC ENZYMES BNP 8 <=100 pg/mL 12/08/2014 [facility] CARDIAC ENZYMES Troponin-I <0.02 0.00 - 0.40 12/07/2014 [facility] CARDIAC ENZYMES CK MB Index 0.9 0.0 - 2.5 12/07/2014 [facility] CARDIAC ENZYMES CK MB 1.1 0.5 - 3.6 12/07/2014 [facility] CARDIAC ENZYMES Total CK 116 12 - 191 12/07/2014 [facility] CHEM PANEL Albumin Lvl 3.6 3.5 - 5.0 12/07/2014 [facility] CHEM PANEL eGFR 64 12/07/2014 Result [...] should be multiplied by the estimated BMI. [facility] CHEM PANEL Creatinine Lvl 1.0 0.5 - 1.4 12/07/2014 [facility] CHEM PANEL Calcium Lvl 9.4 8.5 - 10.5 12/07/2014 [facility] CHEM PANEL A/G Ratio 0.9 0.7 - 1.6 12/07/2014 [facility] CHEM PANEL Globulin 4.1 2.0 - 4.0 12/07/2014 [facility] CHEM PANEL Total Protein 7.7 6.4 - 8.4 12/07/2014 [facility] CHEM PANEL Bili Total 0.5 0.2 - [...] PANEL BUN 14 7 - 22 12/07/2014 [facility] CHEM PANEL Glucose Lvl 97 70 - 99 12/07/2014 [facility] CHEM PANEL AGAP 12.1 10.0 - 20.0 12/07/2014 [facility] CHEM PANEL CO2 25 24 - 32 12/07/2014 [facility] CHEM PANEL Alk Phos 158 39 - 136 12/07/2014 [facility] HEMATOLOGY PTT 29.0 22.9 - 35.8 12/07/2014 [facility] HEMATOLOGY PT 13.5 12.0 - 14.7 12/07/2014 [facility] HEMATOLOGY INR 1.00 0.85 - 1.17 12/07/2014 [facility] HEMATOLOGY Segs-Bands # 3.1 1.5 - 8.1 12/07/2014 [facility] HEMATOLOGY Eosinophils # 0.1 0.0 - 0.5 12/07/2014 [facility] HEMATOLOGY Monocytes # 0.6 0.0 - 0.8 12/07/2014 [facility] HEMATOLOGY Lymphocytes # 2.7 1.0 - 5.5 12/07/2014 [facility] HEMATOLOGY Basophils 0.6 0.0 - 1.0 12/07/2014 [facility] HEMATOLOGY Monocytes 9.1 2.0 - 12.0 12/07/2014 [facility] HEMATOLOGY Eosinophils 2.2 0.0 - 4.0 12/07/2014 [facility] Lymphocytes 41.1 20.0 - 40.0 12/07/2014 [facility] Segs 47.0 45.0 - 75.0 12/07/2014 [facility] MPV 8.0 7.4 - 10.4 12/07/2014 [facility] MCHC 32.5 32.0 - 36.0 12/07/2014 [facility] RDW 16.5 11.5 - 14.5 12/07/2014 [facility] Platelet 330 133 - 450 12/07/2014 [facility] Hct 38.9 36.0 - 48.0 12/07/2014 [facility] MCV 82.8 80.0 - 98.0 12/07/2014 [facility] MCH 26.9 27.0 - 31.0 12/07/2014 [facility] WBC 6.6 3.7 - 10.4 12/07/2014 [facility] RBC 4.70 4.20 - 5.40 12/07/2014 [facility] Hgb 12.6 12.0 - 16.0 12/07/2014 [facility] ELECTROLYTES AGAP 13.1 10.0 - 20.0 11/30/2014 [facility] ELECTROLYTES Glucose Lvl 106 70 - 99 11/30/2014 [facility] ELECTROLYTES BUN 18 7 - 22 11/30/2014 [facility] ELECTROLYTES CO2 24 24 - 32 11/30/2014 [facility] ELECTROLYTES Chloride Lvl 107 95 - 109 11/30/2014 [facility] ELECTROLYTES Sodium Lvl 140 135 - 145 11/30/2014 [facility] ELECTROLYTES Potassium Lvl 4.1 3.5 - 5.1 11/30/2014 [facility] ELECTROLYTES eGFR 73 11/30/2014 Result Comment: [...] should be multiplied by the estimated BMI. [facility] ELECTROLYTES Creatinine Lvl 0.9 0.5 - 1.4 11/30/2014 [facility] ELECTROLYTES Calcium Lvl 8.6 8.5 - 10.5 11/30/2014 [facility] HEMATOLOGY Basophils # 0.3 0.0 - 0.2 11/30/2014 [facility] HEMATOLOGY Eosinophils # 0.4 0.0 - 0.5 11/30/2014 [facility] HEMATOLOGY Lymphocytes # 2.9 1.0 - 5.5 11/30/2014 [facility] HEMATOLOGY Monocytes # 0.6 0.0 - 0.8 11/30/2014 [facility] HEMATOLOGY Basophils 5.0 0.0 - 1.0 11/30/2014 [facility] HEMATOLOGY Segs-Bands # 2.0 1.5 - 8.1 11/30/2014 [facility] HEMATOLOGY Segs 32.0 45.0 - 75.0 11/30/2014 [facility] Lymphocytes 46.7 20.0 - 40.0 11/30/2014 [facility] Monocytes 10.2 2.0 - 12.0 11/30/2014 [facility] HEMATOLOGY Eosinophils 6.1 0.0 - 4.0 11/30/2014 [facility] MPV 8.0 7.4 - 10.4 11/30/2014 [facility] RDW 16.1 11.5 - 14.5 11/30/2014 [facility] Platelet 245 133 - 450 11/30/2014 [facility] MCH 28.3 27.0 - 31.0 11/30/2014 [facility] MCHC 33.8 32.0 - 36.0 11/30/2014 [facility] HEMATOLOGY MCV 83.7 80.0 - 98.0 11/30/2014 [facility] HEMATOLOGY Hct 33.9 36.0 - 48.0 11/30/2014 [facility] HEMATOLOGY RBC 4.05 4.20 - 5.40 11/30/2014 [facility] Hgb 11.5 12.0 - 16.0 11/30/2014 [facility] HEMATOLOGY WBC 6.1 3.7 - 10.4 [...] should be multiplied by the estimated BMI. [facility] CHEM PANEL BUN 13 7 - 22 11/28/2014 [facility] CHEM PANEL CO2 26 24 - 32 11/28/2014 [facility] CHEM PANEL Creatinine Lvl 0.9 0.5 - 1.4 11/28/2014 [facility] CHEM PANEL Glucose Lvl 107 70 - 99 11/28/2014 [facility] CHEM PANEL Calcium Lvl 8.8 8.5 - 10.5 11/28/2014 [facility] CHEM PANEL Chloride Lvl 105 95 - 109 11/28/2014 [facility] CHEM PANEL Potassium Lvl 3.7 3.5 - 5.1 11/28/2014 [facility] CHEM PANEL Sodium Lvl 142 135 - 145 11/28/2014 [facility] CHEM PANEL AGAP 14.7 10.0 - 20.0 11/28/2014 [facility] CHEM PANEL Bili Indirect 0.3 0.0 - 1.0 11/28/2014 [facility] CHEM PANEL Bili Total 0.4 0.2 - 1.3 11/28/2014 [facility] CHEM PANEL Bili Direct 0.1 0.0 - 0.3 11/28/2014 [facility] CHEM PANEL AST 26 0 - 37 11/28/2014 [facility] CHEM PANEL Alk Phos 146 39 - 136 11/28/2014 [facility] CHEM PANEL Albumin Lvl 3.0 3.5 - 5.0 11/28/2014 [facility] CHEM PANEL A/G Ratio 1.0 0.7 - 1.6 11/28/2014 [facility] CHEM PANEL Total Protein 5.9 6.4 - 8.4 11/28/2014 [facility] CHEM PANEL Globulin 2.9 2.0 - 4.0 11/28/2014 [facility] CHEM PANEL ALT 49 0 - 65 11/28/2014 [facility] HEMATOLOGY MPV 7.7 7.4 - 10.4 11/28/2014 [facility] HEMATOLOGY Hct 36.5 36.0 - 48.0 11/28/2014 [facility] HEMATOLOGY Hgb 12.5 12.0 - 16.0 11/28/2014 [facility] HEMATOLOGY RBC 4.47 4.20 - 5.40 11/28/2014 [facility] HEMATOLOGY Platelet 285 133 - 450 11/28/2014 [facility] HEMATOLOGY RDW 16.0 11.5 - 14.5 11/28/2014 [facility] HEMATOLOGY MCHC 34.3 32.0 - 36.0 11/28/2014 [facility] HEMATOLOGY MCH 28.0 27.0 - 31.0 11/28/2014 [facility] HEMATOLOGY MCV 81.7 80.0 - 98.0 11/28/2014 [facility] HEMATOLOGY WBC 5.9 3.7 - 10.4 11/28/2014 [facility] HEMATOLOGY Monocytes 10.2 2.0 - 12.0 11/28/2014 [facility] HEMATOLOGY Lymphocytes 36.4 20.0 - 40.0 11/28/2014 [facility] HEMATOLOGY Segs 45.5 45.0 - 75.0 11/28/2014 [facility] HEMATOLOGY Basophils # 0.1 0.0 - 0.2 11/28/2014 [facility] HEMATOLOGY Eosinophils # 0.3 0.0 - 0.5 11/28/2014 [facility] HEMATOLOGY Monocytes # 0.6 0.0 - 0.8 11/28/2014 [facility] HEMATOLOGY Lymphocytes # 2.2 1.0 - 5.5 11/28/2014 [facility] HEMATOLOGY Segs-Bands # 2.7 1.5 - 8.1 11/28/2014 [facility] HEMATOLOGY Basophils 2.5 0.0 - 1.0 11/28/2014 [facility] HEMATOLOGY Eosinophils 5.4 0.0 - 4.0 11/28/2014 [facility] CHEM PANEL Lipase Lvl 107 73 - 393 11/25/2014 [facility] ELECTROLYTES Sodium Lvl 141 135 - 145 11/25/2014 [facility] ELECTROLYTES Potassium Lvl 3.5 3.5 - 5.1 11/25/2014 [facility] ELECTROLYTES Chloride Lvl 110 95 - 109 11/25/2014 [facility] ELECTROLYTES eGFR 84 11/25/2014 Result Comment: [...] should be multiplied by the estimated BMI. [facility] ELECTROLYTES Albumin Lvl 3.1 3.5 - 5.0 11/25/2014 [facility] ELECTROLYTES Alk Phos 182 39 - 136 11/25/2014 [facility] ELECTROLYTES Bili Total 0.5 0.2 - 1.3 11/25/2014 [facility] ELECTROLYTES ALT 95 0 - 65 11/25/2014 [facility] ELECTROLYTES AST 63 0 - 37 11/25/2014 [facility] ELECTROLYTES Glucose Lvl 89 70 - 99 11/25/2014 [facility] ELECTROLYTES BUN 9 7 - 22 11/25/2014 [facility] ELECTROLYTES Creatinine Lvl 0.8 0.5 - 1.4 11/25/2014 [facility] ELECTROLYTES Total Protein 6.6 6.4 - 8.4 11/25/2014 [facility] ELECTROLYTES CO2 21 24 - 32 11/25/2014 [facility] ELECTROLYTES Calcium Lvl 8.4 8.5 - 10.5 11/25/2014 [facility] ELECTROLYTES A/G Ratio 0.9 0.7 - 1.6 11/25/2014 [facility] ELECTROLYTES AGAP 13.5 10.0 - 20.0 11/25/2014 [facility] ELECTROLYTES B/C Ratio 11 6 - 25 11/25/2014 [facility] ELECTROLYTES Globulin 3.5 2.0 - 4.0 11/25/2014 [facility] HEMATOLOGY WBC 5.9 3.7 - 10.4 11/25/2014 [facility] HEMATOLOGY MCV 82.2 80.0 - 98.0 11/25/2014 [facility] HEMATOLOGY RBC 4.42 4.20 - 5.40 11/25/2014 [facility] HEMATOLOGY Hct 36.3 36.0 - 48.0 11/25/2014 [facility] HEMATOLOGY Hgb 12.3 12.0 - 16.0 11/25/2014 [facility] HEMATOLOGY MPV 7.9 7.4 - 10.4 11/25/2014 [facility] HEMATOLOGY MCHC 33.8 32.0 - 36.0 11/25/2014 [facility] HEMATOLOGY MCH 27.8 27.0 - 31.0 11/25/2014 [facility] HEMATOLOGY Platelet 283 133 - 450 11/25/2014 [facility] HEMATOLOGY RDW 16.0 11.5 - 14.5 11/25/2014 [facility] HEMATOLOGY Lymphocytes # 3.1 1.0 - 5.5 11/25/2014 [facility] HEMATOLOGY Segs-Bands # 1.9 1.5 - 8.1 11/25/2014 [facility] HEMATOLOGY Eosinophils # 0.3 0.0 - 0.5 11/25/2014 [facility] HEMATOLOGY Basophils # 0.1 0.0 - 0.2 11/25/2014 [facility] HEMATOLOGY Monocytes # 0.4 0.0 - 0.8 11/25/2014 [facility] HEMATOLOGY Monocytes 7.1 2.0 - 12.0 11/25/2014 [facility] HEMATOLOGY Lymphocytes 53.4 20.0 - 40.0 11/25/2014 [facility] HEMATOLOGY Basophils 2.1 0.0 - 1.0 11/25/2014 [facility] HEMATOLOGY Eosinophils 4.6 0.0 - 4.0 11/25/2014 [facility] HEMATOLOGY Segs 32.8 45.0 - 75.0 11/25/2014 [facility] CHEM PANEL Magnesium Lvl 1.9 1.8 - 2.4 11/25/2014 [facility] CHEM PANEL Amylase Lvl 50 25 - 115 11/25/2014 [facility] CHEM PANEL Lipase Lvl 111 73 - 393 11/25/2014 [facility] CHEM PANEL Globulin 3.4 2.0 - 4.0 11/25/2014 [facility] CHEM PANEL B/C Ratio 12 6 - 25 11/25/2014 [facility] CHEM PANEL A/G Ratio 0.9 0.7 - 1.6 11/25/2014 [facility] CHEM PANEL Bili Total 0.6 0.2 - 1.3 11/25/2014 [facility] CHEM PANEL ALT 111 0 - 65 11/25/2014 [facility] CHEM PANEL AST 83 0 - 37 11/25/2014 [facility] CHEM PANEL Albumin Lvl 3.2 3.5 - 5.0 11/25/2014 [facility] CHEM PANEL Alk Phos 192 39 - 136 11/25/2014 [facility] CHEM PANEL Total Protein 6.6 6.4 - 8.4 11/25/2014 [facility] URINE AND STOOL UA Urobilinogen <=1.0 mg/dL 0.1 - 1.0 2014 [facility] URINE AND STOOL UA RBC 1 0 - 2 2014 [facility] URINE AND STOOL UA Mucus Few /LPF None Seen /LPF 2014 [facility] URINE AND STOOL UA Turbidity Clear (11/23/14 11:47 PM) Clear 2014 [facility] URINE AND STOOL UA Spec Grav 1.023 <=1.030 2014 [facility] URINE AND STOOL UA Color Yellow *NA* (11/23/14 11:47 PM) Yellow 2014 [facility] URINE AND STOOL UA Bili Negative *NA* (11/23/14 11:47 PM) Negative 2014 [facility] URINE AND STOOL UA Glucose Negative mg/dL Negative mg/dL 2014 [facility] URINE AND STOOL UA Ketones Negative mg/dL Negative mg/dL [address] [facility] [address] URINE AND STOOL UA Protein Negative mg/dL Negative mg/dL [address] [facility] [address] URINE AND STOOL UA pH 5.0 5.0 - 8.0 2014 [facility] URINE AND STOOL UA Sq Epi Few /LPF Few /LPF 2014 [facility] URINE AND STOOL UA WBC 12 0 - 5 2014 [facility] URINE AND STOOL UA Leuk Est Trace *ABN* (11/23/14 11:47 PM) Negative 2014 [facility] URINE AND STOOL UA Blood Negative (11/23/14 11:47 PM) Negative 2014 [facility] URINE AND STOOL UA Nitrite Negative (11/23/14 11:47 PM) Negative 2014 [facility] CARDIAC ENZYMES CK MB Index 1.0 0.0 - 2.5 2014 [facility] CARDIAC ENZYMES CK MB 0.8 0.5 - 3.6 2014 [facility] CARDIAC ENZYMES Total CK 81 12 - 191 2014 [facility] CARDIAC ENZYMES Troponin-I <0.02 0.00 - 0.40 2014 [facility] CHEM PANEL Lactic Acid Lvl 1.0 0.5 - 2.2 2014 [facility] CHEM PANEL Lipase Lvl 479 73 - 393 2014 [facility] CHEM PANEL Amylase Lvl 86 25 - 115 2014 [facility] HEMATOLOGY INR 0.91 0.85 - 1.17 11/23/2014 [facility] HEMATOLOGY PT 12.2 12.0 - 14.7 11/23/2014 [facility] HEMATOLOGY PTT 29.7 22.9 - 35.8 11/23/2014 [facility] CARDIAC ENZYMES BNP 9 <=100 pg/mL 11/23/2014 [facility] CARDIAC ENZYMES Troponin-I <0.02 0.00 - 0.40 11/23/2014 [facility] CARDIAC ENZYMES Total CK 77 12 - 191 11/23/2014 [facility] CARDIAC ENZYMES CK MB 0.9 0.5 - 3.6 11/23/2014 [facility] CARDIAC ENZYMES CK MB Index 1.2 0.0 - 2.5 11/23/2014 [facility] CHEM PANEL Magnesium Lvl 1.7 1.8 - 2.4 11/23/2014 [facility] CHEM PANEL B/C Ratio 19 6 - 25 11/23/2014 [facility] CARDIAC ENZYMES Total CK 67 12 - 191 09/18/2014 [facility] CARDIAC ENZYMES Troponin-I <0.02 0.00 - 0.40 09/18/2014 [facility] CARDIAC ENZYMES Total CK 62 12 - 191 09/18/2014 [facility] CARDIAC ENZYMES Troponin-I <0.02 0.00 - 0.40 09/18/2014 [facility] LIPIDS VLDL 29 09/18/2014 [facility] LIPIDS LDL (Calculated) 140 <=99 mg/dL 09/18/2014 [facility] LIPIDS Trig 147 <=149 mg/dL 09/18/2014 [facility] LIPIDS CHD Risk 3.86 3.90 - 5.80 09/18/2014 [facility] LIPIDS Chol 228 <=199 mg/dL 09/18/2014 [facility] LIPIDS HDL 59 >=61 mg/dL 09/18/2014 [facility] CARDIAC ENZYMES Troponin-I <0.02 0.00 - 0.40 09/18/2014 [facility] CARDIAC ENZYMES Total CK 59 12 - 191 09/18/2014 [facility] CHEM PANEL eGFR 85 09/18/2014 <sup>1</sup>Result [...] values reflect the clinical guidelines
of the [place] [employer]. [facility] CHEM PANEL Globulin 3.2 2.0 - 4.0 09/18/2014 [facility] CHEM PANEL B/C Ratio 22 6 - 25 09/18/2014 [facility] CHEM PANEL AGAP 10.6 10.0 - 20.0 09/18/2014 [facility] CHEM PANEL A/G Ratio 1.1 0.7 - 1.6 09/18/2014 [facility] PTT 28.8 22.9 - 35.8 09/18/2014 <sup>4</sup>Interpretive Data: Heparin T herapeutic Range: 57 - 92 Seconds [facility] PT 12.5 12.0 - 14.7 09/18/2014 [facility] INR 0.94 0.85 - 1.17 09/18/2014 <sup>3</sup>Interpretive Data: RECOMMEND ED RANGES FOR PROTIME INR:
2.0- 3.0 for most medical and surgical thromboembolic states.
2.5-3.5 for artificial heart valves and recurrent embolism.

INR SHOULD BE USED ONLY FOR PATIENTS ON STABLE ANTICOAGULANT THERAPY. [facility] MPV 7.4 7.4 - 10.4 09/18/2014 [facility] MCHC 34.1 32.0 - 36.0 09/18/2014 [facility] RDW 16.8 11.5 - 14.5 09/18/2014 [facility] Platelet 353 133 - 450 09/18/2014 [facility] Hgb 11.4 12.0 - 16.0 09/18/2014 [facility] MCV 83.0 80.0 - 98.0 09/18/2014 [facility] MCH 28.3 27.0 - 31.0 09/18/2014 [facility] Hct 33.4 36.0 - 48.0 09/18/2014 [facility] RBC 4.03 4.20 - 5.40 09/18/2014 [facility] WBC 7.0 3.7 - 10.4 09/18/2014 [facility] Lymphocytes # 3.7 1.0 - 5.5 09/18/2014 [facility] Monocytes # 0.6 0.0 - 0.8 09/18/2014 [facility] Eosinophils # 0.1 0.0 - 0.5 09/18/2014 [facility] Lymphocytes 52.2 20.0 - 40.0 09/18/2014 [facility] Basophils 0.2 0.0 - 1.0 09/18/2014 [facility] HEMATOLOGY Eosinophils 1.8 0.0 - 4.0 09/18/2014 [facility] HEMATOLOGY Segs-Bands # 2.6 1.5 - 8.1 09/18/2014 [facility] HEMATOLOGY Monocytes 8.1 2.0 - 12.0 09/18/2014 [facility] HEMATOLOGY Segs 37.7 45.0 - 75.0 09/18/2014 [facility] Pathology Reports No Data Provided for [...] perfusion study. Normal resting LV function. 04/12/2016 [facility] 1view DX Clinical Indica tion: Chest pain [...] are unremarkable. IMPRESSION: 1. Unremarkable chest x-ray. SL: RAY 04/11/2016 [facility] Pulmonary Embolism CTA ADDENDUM: TECHNIQUE: Thin collimation axial images of the pulmonary arteries and routine CT chest with IV contrast. 2-D and 3-D reformatted images were performed for further evaluation. SL: 12 Dictated on: 01/16/2015 7:59:50AM Interpreted by: MD Issa Joseph V Transcribed by: Genomascribangie 01/16/2015 7:59:50AM Signed by: MD Issa Joseph [...] effus ion, or pneumothorax. SL: 12 12/07/2014 [facility] Chest 1view DX EXAMINATION: est 1view [...] focal osseous lesion is appreciated. SL:17 12/07/2014 [facility] Cardiac SPECT multi studies NM PROCEDURE: [...] study. Normal resting LV function. Reading Location: [facility] 2014 [facility] Abdomen/Pelvis w IV contrast CT PROCEDURE: [...] spondylosis. DLP: 1522 mGy-cm SL: 13 2014 [facility] 1view DX PORTABLE CHES T (chest 1 [...] prior cholecystectomy. Coding: Chest 1view CPT code: 49701 SL: 13 Amarjit Sanchez M.D. 11/23/2014 [facility] Chest 2 views DX EXAM: Chest 2 views HISTORY: Chest pain. COMPARISON: None. TECHNIQUE: Frontal and lateral views of the chest. FINDINGS: The lungs are well-inflated. No pneumonia, edema or pleural effusion. Heart size normal. Coronary artery stents. IMPRESSION: No acute findings in the chest. SL: 12 09/17/2014 [facility] Consultation Notes No Data Provided for This Section Discharge Summaries No Data Provided for This Section History and Physicals No Data Provided for This Section Vital Signs Vital Sign Value Date Comments Source Heart Rate 79 04/13/2016 [facility] Temperature Oral (F) 98.7 F 04/13/2016 [facility] Systolic (mm Hg) 130 04/13/2016 [facility] Diastolic (mm Hg) 82 04/13/2016 [facility] Respitory Rate 18 04/13/2016 [facility] Systolic (mm Hg) 128 04/13/2016 [facility] Diastolic (mm Hg) 86 04/13/2016 [facility] Temperature Oral (F) 98.7 F 04/13/2016 [facility] Respitory Rate 18 04/13/2016 [facility] Heart Rate 87 04/13/2016 [facility] Weight 75 0 04/13/2016 [facility] Height 177.8 cm 04/13/2016 [facility] BMI Calculated 23.72 04/13/2016 [facility] Systolic (mm Hg) 112 04/13/2016 [facility] Diastolic (mm Hg) 81 04/13/2016 [facility] Temperature Oral (F) 98.0 F 04/13/2016 [facility] Heart Rate 79 04/13/2016 [facility] Respitory Rate 18 04/13/2016 [facility] Weight 75 0 04/12/2016 [facility] BMI Calculated 23.72 04/12/2016 [facility] Height 177.8 cm 04/12/2016 [facility] Height 160.02 cm 04/12/2016 [facility] BMI Calculated 28.4 04/12/2016 [facility] Weight 72.727 04/12/2016 [facility] Weight 70.455 03/31/2016 [facility] Height 160.02 cm 03/31/2016 [facility] Systolic (mm Hg) 160 03/31/2016 [facility] Diastolic (mm Hg) 116 03/31/2016 [facility] Temperature Oral (F) 97.9 F 03/31/2016 [facility] Respitory Rate 18 03/31/2016 [facility] Heart Rate 99 03/31/2016 [facility] BMI Calculated 27.51 03/31/2016 [facility] Temperature Oral (F) 98.2 F 03/27/2016 [facility] Respitory Rate 16 03/27/2016 [facility] Heart Rate 92 03/27/2016 [facility] Systolic (mm Hg) 164 03/27/2016 [facility] Diastolic (mm Hg) 102 03/27/2016 [facility] Weight 72.727 03/27/2016 [facility] BMI Calculated 28.4 03/27/2016 [facility] Height 160.02 cm 03/27/2016 [facility] Respitory Rate 18 03/27/2016 [facility] Heart Rate 103 03/27/2016 [facility] Systolic (mm Hg) 142 03/27/2016 [facility] Diastolic (mm Hg) 103 03/27/2016 [facility] Temperature Oral (F) 98.3 F 03/27/2016 [facility] Respitory Rate 20 12/08/2014 [facility] Systolic (mm Hg) 139 12/08/2014 [facility] Diastolic (mm Hg) 89 12/08/2014 [facility] Weight 81.818 12/08/2014 [facility] Systolic (mm Hg) 121 12/08/2014 [facility] Diastolic (mm Hg) 84 12/08/2014 [facility] Respitory Rate 20 12/08/2014 [facility] Temperature Oral (F) 97.4 F 12/08/2014 [facility] Heart Rate 84 12/08/2014 [facility] Height 160.02 cm 12/08/2014 [facility] Weight 81.818 12/08/2014 [facility] BMI Calculated 31.95 12/08/2014 [facility] Temperature Oral (F) 97.5 F 12/08/2014 [facility] Heart Rate 95 12/08/2014 [facility] Systolic (mm Hg) 159 12/08/2014 [facility] Diastolic (mm Hg) 96 12/08/2014 [facility] Respitory Rate 20 12/08/2014 [facility] Temperature Oral (F) 97.7 F 12/08/2014 [facility] Weight 77.273 12/07/2014 [facility] BMI Calculated 30.18 12/07/2014 [facility] Height 160.02 cm 12/07/2014 [facility] Heart Rate 130 12/07/2014 [facility] Temperature Oral (F) 97.9 F 12/01/2014 [facility] Respitory Rate 15 12/01/2014 [facility] Systolic (mm Hg) 114 12/01/2014 [facility] Diastolic (mm Hg) 73 12/01/2014 [facility] Heart Rate 70 12/01/2014 [facility] Systolic (mm Hg) 121 12/01/2014 [facility] Diastolic (mm Hg) 84 12/01/2014 [facility] Respitory Rate 16 12/01/2014 [facility] Systolic (mm Hg) 155 12/01/2014 [facility] Diastolic (mm Hg) 101 12/01/2014 [facility] Heart Rate 81 12/01/2014 [facility] Temperature Oral (F) 98.1 F 12/01/2014 [facility] Respitory Rate 18 12/01/2014 [facility] Temperature Oral (F) 97.5 F 12/01/2014 [facility] Heart Rate 81 12/01/2014 [facility] Weight 81.818 11/26/2014 [facility] Height 160.02 cm 11/23/2014 [facility] Weight 81.818 11/23/2014 [facility] BMI Calculated 31.95 11/23/2014 [facility] Heart Rate 76 09/18/2014 [facility] Systolic (mm Hg) 120 09/18/2014 [facility] Diastolic (mm Hg) 77 09/18/2014 [facility] Temperature Oral (F) 97.9 F 09/18/2014 [facility] Respitory Rate 16 09/18/2014 [facility] Weight 79.545 09/18/2014 [facility] Height 160.02 cm 09/18/2014 [facility] BMI Calculated 31.06 09/18/2014 [facility] Heart Rate 91 09/18/2014 [facility] Respitory Rate 14 09/18/2014 [facility] Systolic (mm Hg) 166 09/18/2014 [facility] Diastolic (mm Hg) 116 09/18/2014 [facility] Temperature Oral (F) 98.3 F 09/18/2014 [facility] Temperature Oral (F) 98.0 F 09/18/2014 [facility] Systolic (mm Hg) 153 09/18/2014 [facility] Diastolic (mm Hg) 99 09/18/2014 [facility] Heart Rate 90 09/18/2014 [facility] Respitory Rate 18 09/18/2014 [facility] Height 160.02 cm 09/18/2014 [facility] BMI Calculated 31.06 09/18/2014 [facility] Weight 79.545 09/18/2014 [facility] Encounters Location Location Details Encounter Type Encounter Number Reason For Visit Attending Provider ADM Date DC Date Status Source [facility] OBS Observation Patient [id number] Ruddy Amato 09/17/2014 09/18/2014 [facility] Inpatient [id number] Chevy Callaway 11/23/2014 12/01/2014 [facility] OBS Observation Patient [id number] Liliana Lyles 12/07/2014 12/08/2014 [facility] Emergency [id number] Lokesh Aguilera 03/27/2016 03/27/2016 [facility] Emergency [id number] Rosa Lam 03/31/2016 03/31/2016 [facility] Observation [id number] Jenna Ceja 04/12/2016 04/13/2016 [facility] Procedures Procedure Code Date Perfomer Comments Source Hysterectomy [id number] [facility] Procedure on back [id number] [facility] Thyroidectomy [id number] [facility] CABG x 1 - Coronary artery bypass graft x 1<sup>1</sup > [id number] may 2015 [facility] Stent placement [id number] [facility] Cholecystectomy [id number] [facility] Assessment and Plan Assessment and Plan Date Source Extracted from:Title: Clinical Document Author: Gaurav Russo MD Date: 04/13/16 Progress Note Cardiology [facility] Impression: Atypical chest pain. Severe [...] PO QID-Before Meals Continuous Infusions: None 04/13/2016 [facility] No Data Provided for This Section Social [...] stop now that has a job. 2014 [facility] Family History No Data Provided for This Section Advance Directives No Data Provided for This Section Functional Status No Data Provided for This Section
--- OUTSIDE RECORDS SUMMARY | 2019-11-20 11:19 | XMS REPORT | Continuity of Care Document ---
Author Author [facility] t Organization [facility] Address [address] [place] [address] Phone Unavailable Care Team Providers Care Digital Photo Printer Name Role Phone NONSTAFF PCP Unavailable Oumou HASTINGS Attphys Unavailable ANTELMO HEART Attphys Unavailable WHITLEY WHEELER Attphys Unavailable Mougouris, Taso Attphys Rosa Lam Attphys Enrique Aguilera Attphys Rafal, Dc Adnan Attphys Cesia, Blake Chevy Attphys Al-Sandoval Bill Haytham Attphys ANTELMO HEART Admphys Unavailable DOLLY GALINDO Admphys Unavailable Mougouris, Taso Admphys Rafal, Dc Adnan Admphys Cesia, Blake Chevy Admphys Al-Azzeh, Sandoval Haytham Admphys Payers Payer Name Policy Type Policy Number Effective Date Expiration Date Errol whitley [facility] Employees [id number] 2016 00:00:0 0 [facility] Problems Condition Name Condition Details Condition Category Status Onset Date Resolution Date Last Treatment Date Treating Clinician Comments Source Acute chest pain Acute chest pain Disease Active 2016-05-30 00:00:00 [facility] MOUTH PAIN MOUT H PAIN Active 03/27/2016 [facility] Diagnosis Active 2016-03-27 00:00:00 2016-03-27 10:51:00 [facility] ACUTE CHEST PAIN. GASTRP ARESOS ACUTE CHEST PAIN. GASTRP ARESOS Active 04/11/2015 [facility] Active 2015-04-11 16:00: 00 2016-04-12 02:19:00 [facility] ACUTE CHEST PAIN GASTRPARESIS ACUTE CHEST PAIN GASTRPARESIS Active 04/11/2015 [facility] Diagnosis Active 04-11 16:00:00 2016-04-16 15:47:00 [facility] CHEST PAIN CHES T PAIN Active 12/07/2014 [facility] Active 2014-12-07 00:00:00 2016-08-13 10:57:00 [facility] ACUTE CHEST PAIN, RULE OUT ACS ACUTE CHEST PAIN, RULE OUT ACS Active 11/23/2014 [facility] Diagnosis Active 2014-11-23 00:00 :00 2016-05-08 18:50:00 [facility] Chest pain Problem Active 2014-08-04 00:00:00 [facility] Hypertension Problem Active 2014-08-04 00:00:00 [facility] Acute coronary syndrome Problem Active 2014-05-30 00:00:00 [facility] Unstable angina pectoris Problem Active 2014-05-30 00:00:00 [facility] Hypertensive crisis Problem Active 2014-05-30 00:00:00 [facility] Dyspnea Problem Active [facility] Nausea Problem Active [facility] Myocardial infarction (disorder) Myocardial infarction (disorder) Resolved Problem 04/16/2016 3 [facility] Problem Resolved 2016-04-16 03:18:48 [facility] 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) Brain injury wit hout open intracranial wound AND with no loss of consciousness (disorder) Resolved Problem 04/16/2016 from a ffall 10 months ago [facility] Problem Resolved 2016 03:18:48 [facility] Congestive heart failure (disorder) Congestive heart failure (disorder) Active Problem 04/16/2016 [facility] Problem Active 2016-04-16 03:18:48 [facility] CHEST PAIN NOS CHES T PAIN NOS Active [facility] Active 2016-05-08 18:50:00 [facility] CHEST PAIN, UNSPECIFIED CHES T PAIN, UNSPECIFIED Active [facility] Active 2016-04-16 15:47:00 [facility] GASTROPARESIS SLIME ROPARESIS Active [facility] Active 2016-04-16 15:47:00 [facility] Discharge Diagnosis: Dental caries, unspecified Discharge Diagnosis: Dental caries, unspecified 03/27/2016 03/30/2016 [facility] Problem 2016-03-27 06:00:00 2016-03-30 04:00:14 2016-03 04:00:14 [facility] Discharge Diagnosis: Other specified dis orders of teeth and supporting structures Discharge Diagno sis: Other specified disorders of teeth and supporting structures 03/27/2016 03/30/2016 [facility] Problem 2016-03-27 06:00:00 2016-03-30 04:00:14 2016-03-30 04:00:14 [facility] Discharge Diagnosis: Periapical abscess without sinus Discharge Diagnosis: Periapical abscess without sinus 03/27/2016 03/30/2016 [facility] Problem 2016-03-27 06:00:00 2016-03-30 04:00:14 2016-03 04:00:14 [facility] Allergies, Adverse Reactions, Alerts Allergy Name Allergy Type Status Severity Reaction(s) Onset Date Inacti ve Date Treating Clinician Comments Source prochlorperazine edisylate DA Active SV 2019-10-03 00:00:0 0 [facility] metoclopramide HCl DA Active SV 2019-10-03 00:00:00 [facility] Iodinated Contrast Media DA Active MO 2019-10-03 00:00:00 [facility] ketorolac DA Active SV 2019-10-03 00:00:00 [facility] penicillin G DA Active SV 2019-10-03 00:00:00 [facility] Iodine And Iodide Containing Products Propensity to adverse reactio ns Active 2016-06-03 00:00:00 [facility] Dye Drug Allergy Active Itching, Swelling, Rash 2016-05-31 00:0 0:00 [facility] Prochlorperazine Propensity to adverse reactions Active Rash 2016-05-30 00:00:00 [facility] Penicillins Propensity to adverse reactions Active Swe lling 2016-05-30 00:00:00 [facility] Metoclopramide Hcl Propensity to adverse reactions Active 2016-05-30 00:00:00 jittery [facility] Ketorolac Propensity to adverse reactions Active Hives 05-30 00:00:00 [facility] Ondansetron Hcl (Pf) Propensity to adverse reactions Active Rash 2016-05-30 00:00:00 [facility] prochlorperazine edisylate DA Active 2016-04-27 00:00:0 0 [facility] metoclopramide HCl DA Active SV 2016-04-27 00:00:00 [facility] morphine DA Active MO 2016-04-27 00:00:00 [facility] ondansetron DA Active U 2016-04-27 00:00:00 [facility] ketorolac DA Active SV 2016-04-27 00:00:00 [facility] penicillin G DA Active SV 2016-04-27 00:00:00 [facility] Penicillin Allergy to substance Active Severe THROAT SWELLING 2016-03-11 00:00:00 [facility] prochlorperazine edisylate Allergy to substance Active Mild RASH 2011-08-02 00:00:00 [facility] prochlorperazine maleate Allergy to substance Active Mild R ROC 2011-08-02 00:00:00 [facility] metoclopramide HCl Allergy to substance Active Mild JERKY 00:00:00 [facility] ketorolac tromethamine Allergy to substance Active Mild AYUSH H 2011-08-02 00:00:00 [facility] Compazine Compazine Active Navarro elizabethhussein [facility] penicillins penicillins Active [facility] Reglan Reglan Active [facility] ermann Toradol Toradol Active [facility] Zofran Zofran Active [facility] Social History Social Habit Start Date Stop Date Quantity Comments Source Sex Assigned At [facility] Alcohol Comment 2016-05-30 00:00:00 2016-05-30 00:00:00 two times brice rodriguez [facility] Social History 2014 05:40:48 2014 05:40:48 [facility] Smoking Status Start Date Stop Date Source Former smoker 2016-06-08 00:00:00 2016-06-08 00:00:00 [facility] Medications Ordered Medication Name Filled Medication Name Start Date Stop Da te Current Medication? Ordering Clinician Indication Dosage Frequency Signature (SIG) Comments Components Source Cefuroxime Axetil (Cefuroxime) 250 Mg TABLET Cefuroxim e Axetil (Cefuroxime) 250 Mg TABLET 2019-09-29 08:21:00 Yes 250 Every 12 Hours [facility] Amlodipine Besylate (Norvasc) 5 Mg TAB Amlodipine Besylate ( Norvasc) 5 Mg TAB 2019-09-29 08:20:00 Yes 5 Daily [facility] Docusate Sodium (Colace) 100 Mg CAP Docusate Sodium (Colace) 100 Mg CAP 2019-09-29 08:20:00 Yes 100 Every 12 Hours [facility] Lactulose Lactulose 2019-09-29 08:20:00 Yes 20 Twice A Day as needed for Constipation [facility] Magnesium Hydroxide (Milk Of Magnesia) 2,400 Mg/10 Ml ORAL.SUSP Magnesium Hydroxide (Milk Of Magnesia) 2,400 Mg/10 Ml ORAL.SUSP 2019-09-29 08:20:00 Yes 30 Bedtime [facility] Ondansetron Hcl (Zofran*) 4 Mg TABLET Ondansetron Hcl (Zofra n*) 4 Mg TABLET 2019-09-29 08:20:00 Yes 4 Every 4 Hour s as needed for Nausea/Vomiting [facility] Sennosides (Senna Laxative) 8.6 Mg TABLET Sennosides ( Senna Laxative) 8.6 Mg TABLET 2019-09-29 08:20:00 Yes 8.6 Every 12 Hours [facility] Aspirin (Aspirin Ec) 81 Mg TABLET. Aspirin (Aspirin Ec) 81 Mg TABLET.DR 2019-09-06 10:47:00 Yes 81 Every Morning [facility] Atorvastatin Atorvastatin 2019-09-06 10:47:00 Yes 80 Bedtime [facility] Docusate Sodium (Colace) 100 Mg CAP Docusate Sodium (Colace) 100 Mg CAP 2019-09-06 10:47:00 Yes 100 Twice A Day as nee ded for Constipation [facility] Metoprolol Succinate (Toprol Xl) 25 Mg TAB.ER.24H Meto prolol Succinate (Toprol Xl) 25 Mg TAB.ER.24H 2019-09-06 10:47:00 Yes 12.5 Ally ly [facility] Sennosides (Senna Lax) 8.6 Mg TABLET Sennosides (Senna Lax) 8.6 Mg TABLET 2019-09-06 10:47:00 Yes 8.6 Twice A Day as nee ded for Constipation [facility] Tramadol Hcl (Ultram 50MG*) 50 Mg TAB Tramadol Hcl (Ultram 5 0MG*) 50 Mg TAB 2019-09-06 10:47:00 Yes 50 Every 8 Hours as n eeded for Pain [facility] traMADol (ULTRAM) 50 mg tablet 2016-06-04 00:00:00 Yes 100mg [id number] Take 2 tablets (100 mg total) by mouth 3 (three) times daily. Max Daily Amount: 300 mg [facility] levothyroxine (SYNTHROID, LEVOTHROID) 175 MCG tablet 2 20:58:00 Yes 175ug Take 175 mcg by mouth Every morning on a n empty stomach. [facility] temazepam (RESTORIL) 30 mg capsule 2016-05-30 17:05:25 Yes 30mg Take 30 mg by mouth every night as needed for Sleep. [facility] HYDROcodone-acetaminophen (NORCO 10-325) 10-325 mg per table t 2016-05-30 17:04:01 Yes 1{tbl} Take 1 tab let by mouth every 6 (six) hours as needed for Pain. [facility] lisinopril (PRINIVIL,ZESTRIL) 10 MG tablet 2016-05-30 17:03:47 Yes 10mg QD Take 10 mg by mouth daily. [facility] atorvastatin (LIPITOR) 80 MG tablet 2016-05-30 17:03:47 Yes 80mg QD Take 80 mg by mouth daily. [facility] diazePAM (VALIUM) 5 MG tablet 2016-05-30 17:03:47 Yes 5mg Take 5 mg by mouth every 6 (six) hours as needed for Anxiety. [facility] amLODIPine (NORVASC) 10 MG tablet 2016-05-30 17:03:46 Yes 10mg QD Take 10 mg by mouth daily. [facility] pantoprazole (PROTONIX) 40 MG tablet 2016-05-30 17:03:46 Ye s 40mg QD Take 40 mg by mouth daily. [facility] clopidogrel (PLAVIX) 75 mg tablet 2016-05-30 17:02:35 Yes 75mg QD Take 75 mg by mouth daily. [facility] cloNIDine HCl (CATAPRES) 0.1 MG tablet 2016-05-30 17:02:35 Yes .1mg Take 0.1 mg by mouth as needed. [facility] Ondansetron (Zofran Odt) 4 Mg TAB.RAPDIS Ondansetron ( Zofran Odt) 4 Mg TAB.RAPDIS 2016-05-22 12:46:00 Yes 4 Q4-6H Prn [facility] Pantoprazole Sodium (Protonix) 40 Mg TABLET.DR Garza azole Sodium (Protonix) 40 Mg TABLET. 2016-05-22 12:46:00 Yes 40 Daily [facility] Metronidazole (Flagyl) 500 Mg TABLET Metronidazole (Flagyl) 500 Mg TABLET 2016-05-22 12:46:00 2019-08-31 00:00:00 No 500 Three Times A Day [facility] Tylenol 2016-04-13 21:09:00 Yes Notes: Max acetaminophen = 4000mg/day (4 gm/day). (Same as: Tylenol) [facility] Acetaminophen 300 MG / Codeine Phosphate 30 MG Oral Tablet [Tylenol with Codeine #3] 2016-04-13 21:06:00 No 1 - 2 tab, PO, Q4H, PRN Pain, X 2 day, # 20 tab, 0 Refill(s) [facility] atorvastatin 40 mg oral tablet 2016-04-13 21:06:00 Yes 80 mg = 2 tab, PO, Bedtime, # 60 tab, 0 Refill(s) [facility] Morphine 2016-04-12 23:07:00 No Not es: (Same as:MORPhine Sulfate) [facility] pantoprazole 2016-04-12 22:30:00 No Notes: Tablet should not be chewed or crushed. (Same as: Protonix) [facility] 2016-04-12 18:11:00 No Not es: (Same as:MORPhine Sulfate) [facility] atorvastatin 2016-04-12 17:21:00 No Notes: (Same as: Lipitor) [facility] metoprolol tartrate 2016-04-12 15:00:00 No Notes: (Same as: Toprol XL) May split tab, but do not crush. [facility] Lisinopril 2016-04-12 15:00:00 No Notes: (Same as: Prinivil, Zestril) [facility] Plavix 2016-04-12 15:00:00 No Notes: (Same As: Plavix) [facility] Norvasc 2016-04-12 15:00:00 No Notes: (Same as: Norvasc) [facility] Saline Flush 0.9% 2016-04-12 15:00:00 No Notes: (Same as: BD Posiflush) [facility] heparin 2016-04-12 14:00:00 No Notes: porci ne heparin [facility] Sucralfate 100 MG/ML Oral Suspension [Carafate] 2016-04-12 13:30 :00 No Notes: May interfere w/enter al feeds - Take 1 hr before or 2 hr after antacids, dairy pdt, meals & minerals - On empty stomach. For patients unable to swallow tablet, dissolve in 10mL - 30mL of water or juice and stir before giving. (Same As: Carafate) Jacob Royer kidd Thyroxine 2016-04-12 12:30:00 No Notes: Take 1 hour before or 2 hours after meal; Enteral feeds may interefere with the absorption of this medication. (Same as: Levothroid) Srikanth Plascencia Aspirin 325 MG Oral Tablet 2016-04-12 12:00:00 No Notes: Take with food. Jacob Herediaann Clonidine Hydrochloride 0.1 MG Oral Tablet 2016-04-12 10:40:00 No Notes: (Same As: Catapres) Jacob Giovanna carlos Acetaminophen 325 MG / Hydrocodone Bitartrate 5 MG Oral Tabl et [Stanfield 5/325] 2016-04-12 10:39:00 No Notes: (Same as: Stanfield 325/5) Do not exceed 4gm/day of acetaminophen. Jacob Feliciano nn Ativan 2016-04-12 10:15:00 No Notes: (Same as: Ativan) Jacob Herediaann Morphine 2016-04-12 10:14:00 No Not es: (Same as:MORPhine Sulfate) Jacob Plascencia 24 HR tramadol hydrochloride 100 MG Extended Release Tablet 2016-04-12 10:04:00 Yes 100 mg = 1 tab, PO, Q4H, 0 Re fill(s) Jacob Herediaann Amlodipine 10 MG Oral Tablet [Norvasc] 2016-04-12 10:04:00 Yes See Instructions, 1 tab PO Daily, 0 Refill(s) Jacob Temo Saline Flush 0.9% 2016-04-12 09:31:00 No Notes: (Same as: BD Posiflush) Jacob Herediaann Morphine 2016-04-12 09:31:00 No Not es: (Same as:MORPhine Sulfate) Jacob Herediaann Nitroglycerin 2016-04-12 09:31:00 No Notes: (Same as:Nitroquick, Nitrostat) "Do Not Crush" Sublingual tablet Jacob [facility]va Ativan 2016-04-12 07:56:00 No 0.5 mg, Route: IVP, Drug form: INJ, ONCE, Dosing Weight 72.727, kg, Priority: STAT, Start date: 04/12/16 1:56:00 FOSTER WINDER, Stop date: 04/12/16 1:56:00 [facility] Morphine 2016-04-12 04:34:00 No Not es: (Same as:MORPhine Sulfate) Jacob Plascencia Nitroglycerin 2016-04-12 04:31:00 No Notes: (Same as:Nitroquick, Nitrostat) "Do Not Crush" Sublingual tablet Jacob Plascencia Famotidine 2016-04-12 03:47:00 No Notes: (Same as: Pepcid) Can be dilute in 5-10cc NS IVP: Slow IV push over at least 2 minutes. [facility] Saline Flush 0.9% 2016-04-12 03:47:00 No Notes: Same as: BD Posiflush Sterile [facility] [place] Acetaminophen 300 MG / Codeine Phosphate 30 MG Oral Tablet [Tylenol with Codeine #3] 2016-03-27 16:39:00 Yes 1 - 2 tab, PO, Q4H, PRN Pain, X 3 day, # 20 tab, 0 Refill(s) [facility] Clindamycin 300 MG Oral Capsule [Cleocin] 2016-03-27 16:38:00 Yes 300 mg = 1 cap, PO, QID, X 10 day, # 40 cap, 0 Refill(s) Jacob Plascencia Dilaudid 2016-03-27 16:29:00 No 0.5 mg, 0.5 mL, Route: IM, Drug form: INJ, ONCE, Dosing Weight 72.727, kg, Priority: STAT, Start date: 03/27/16 10:29:00 FOSTER WINDER, Stop date: 03/27/16 10:29:00 FOSTER WINDER [facility] Acetaminophen 325 MG / Hydrocodone Bitartrate 10 MG Or al Tablet [Stanfield 10/325] 2016-03-27 16:26:00 No 1 ta b, Route: PO, Drug Form: TAB, Dosing Weight 72.727, kg, ONCE, STAT, Start date: 03/27/16 10:26:00 FOSTER WINDER, Stop date: 03/27/16 10:26:00 FOSTER WINDER [facility] Clindamycin 2016-03-27 16:25:00 No Notes: (clindamycin 150 mg/1 ml (600 mg/4 ml VL) INJ) (Same As: Cleocin) Jacob Plascencia Thyroxine 2014-12-09 14:00:00 No Notes: Take 1 hour before or 2 hours after meal; Enteral feeds may interefere with the absorption of this medication. (Same as: Levothroid) Lesterleonel townsend [facility] Plavix 2014-12-09 14:00:00 No Notes: (Same As: Plavix) Jacob Plascencia 24 HR Metoprolol Tartrate 50 MG Extended Release Tablet [Top rol] 2014-12-09 14:00:00 No Notes: (Sa me as: Toprol XL) May split tab, but do not crush. [facility] Lisinopril 2014-12-08 22:00:00 No Notes: (Same as: Prinivil, Zestril) [facility] pantoprazole 2014-12-08 21:30:00 No Notes: Tablet should not be chewed or crushed. (Same as: Protonix) Saleem Plascencia Sucralfate 100 MG/ML Oral Suspension [Carafate] 2014-12-08 18:00 :00 No Notes: Enteral feeds may int erfere with the absorption of this medication. Shake well. Take 1 hr before or 2 hrs after antacids, dairy pdt, minerals & meals. (Same As: Carafate) [facility] kimmy Erythromycin 250 MG Enteric Coated Tablet 2014-12-08 17:00:00 No Notes: (Same as: Brenton-Tab) Give With Food "Do Not Crush" [facility] [place] Sucralfate 100 MG/ML Oral Suspension [Carafate] 2014-12-08 16:49 :00 Yes 1 gm = 10 ml, PO, QID-Before Meals, # 1200 mL, 0 Refil l(s) [facility] [place] tramadol hydrochloride 50 MG Oral Tablet 2014-12-08 16:49:00 Yes 50 mg = 1 tab, PO, Q6H, PRN Pain, # 30 tab, 0 Refill(s) [facility] [place] Aspirin 325 MG Oral Tablet 2014-12-08 16:39:00 No Notes: Take with food. Jacob Plascencia Hyoscyamine 2014-12-08 16:30:00 No Notes: (Same as: Levsin) Take 30 min before meal [facility] Valium 2014-12-08 16:16:00 No Notes: (Same as: Valium) [facility] Clonidine Hydrochloride 0.1 MG Oral Tablet 2014-12-08 16:16:00 No Notes: (Same As: Catapres) [facility] Giovanna carlos Diazepam 10 MG Oral Tablet [Valium] 2014-12-08 09:35:00 Yes 10 mg = 1 tab, PO, TID, PRN Anxiety, 0 Refill(s) [facility] Temazepam 30 MG Oral Capsule [Restoril] 2014-12-08 09:35:00 Yes 30 mg = 1 cap, PO, Bedtime, PRN Sleep, 0 Refill(s) [facility] clopidogrel 75 MG Oral Tablet [Plavix] 2014-12-08 09:35:00 Yes 75 mg = 1 tab, PO, Daily, # 30 tab, 0 Refill(s) [facility] tramadol hydrochloride 50 MG Oral Tablet 2014-12-08 09:35:00 No 50 mg = 1 tab, PO, Q6H, PRN Pain, 0 Refill(s) [facility] promethazine 25 mg oral tablet 2014-12-08 09:35:00 Yes 25 mg = 1 tab, PO, Q4H, PRN Nausea/Vomiting, 0 Refill(s) [facility] pantoprazole 40 mg oral enteric coated tablet 2014-12-08 09:35:0 0 Yes 40 mg = 1 tab, PO, Before Dinner, 0 Refill(s) [facility] metoprolol 50 mg oral tablet, extended release 2014-12-08 09:35: 00 Yes 50 mg = 1 tab, PO, BID, 0 Refill(s) [facility] lisinopril 20 mg oral tablet 2014-12-08 09:35:00 Yes 20 mg = 1 tab, PO, BID, # 60 tab, 0 Refill(s) [facility] levothyroxine 200 mcg (0.2 mg) oral tablet 2014-12-08 09:35:00 Yes 200 microgram = 1 tab, PO, Daily, # 30 tab, 0 Refill(s) [facility] hyoscyamine 0.125 mg sublingual tablet 2014-12-08 09:35:00 Yes 0.125 mg = 1 tab, SL, Before Meals & Bedtime, 0 Refill(s) [facility] erythromycin 250 mg oral delayed release capsule 2014-12-08 09:35:00 Yes 250 mg = 1 cap, PO, Q6H, # 40 cap, 0 Refill(s) [facility] [place] Clonidine Hydrochloride 0.1 MG Oral Tablet 2014-12-08 09:35:00 Yes 0.1 mg = 1 tab, PO, TID, PRN Hypertension, 0 Refill(s) Jacob Plascencia Aspirin 325 MG Oral Tablet 2014-12-08 09:35:00 Yes 325 mg = 1 tab, PO, Daily, # 30 tab, 0 Refill(s) Amrit Plascencia Phenergan 2014-12-08 09:10:00 No Notes: Do not give IV push. (Same as: Phenergan) [facility] [place] Morphine 2014-12-08 09:07:00 No Not es: (Same as:MORPhine Sulfate) [facility] [place] Sodium Chloride 0.154 MEQ/ML Injectable Solution 2014-12-08 09:0 7:00 No 1,000 mL, Rate: 125 ml/hr, I nfuse over: 8 hr, Route: IV, Dosing Weight 81.818 kg, Total Volume: 1,000, Start date: 12/08/14 4:07:00, Duration: 30 day, Stop date: 01/07/15 4:06:00 [facility] Her oneal Saline Flush 0.9% 2014-12-08 09:07:00 No Notes: (Same as: BD Posiflush) [facility] [place] nitroglycerin 0.4 mg sublingual tablet 2014-12-08 08:28:00 No Notes: (Same as:Nitroquick, Nitrostat) "Do Not Crush" Sublingual tablet [facility] atropine 2014-12-08 08:28:00 No 0.5 mg, 5 mL, Route: IVP, Drug form: INJ, PRN, PRN Bradycardia, Start date: 12/08/14 3:28:00, Duration: 30 day, Stop date: 01/07/15 3:27:00 [facility] [place] Furosemide 20 MG Oral Tablet [Lasix] 2014-12-08 07:57:00 No 20 mg = 1 tab, PO, Daily, 0 Refill(s) [facility] Johnathan mejia Labetalol 2014-12-08 06:13:00 No Notes: (Same as: Normodyne, Trandate) Push over 2 minutes Give bolus over 2-3 minutes. [facility] Nitroglycerin 0.4 MG Sublingual Tablet [Nitrostat] 06:01:00 No Notes: (Same as:Nitroquick, Nitr ostat) "Do Not Crush" Sublingual tablet [facility] 2014-12-08 05:34:00 No 12.5 mg, Route: IVPB, ONCE, Dosing Weight 77.273, kg, Priority: STAT, Start date: 12/08/14 0:34:00, Stop date: 12/08/14 0:34:00 [facility] Morphine 2014-12-08 05:34:00 No 4 mg, Route: IVP, Drug form: INJ, ONCE, Dosing Weight 77.273, kg, Priority: STAT, Start date: 12/08/14 0:34:00, Stop date: 12/08/14 0:34:00 [facility] 2014-12-08 05:26:00 No 4 mg, Route: IVP, Drug form: INJ, ONCE, Dosing Weight 77.273, kg, Priority: STAT, Start date: 12/08/14 0:26:00, Stop date: 12/08/14 0:26:00 [facility] 2014-12-08 05:25:00 No 12.5 mg, Route: IVPB, ONCE, Dosing Weight 77.273, kg, Priority: STAT, Start date: 12/08/14 0:25:00, Stop date: 12/08/14 0:25:00 [facility] Bentyl 2014-12-08 04:41:00 No 20 mg, Route: PO, ONCE, Dosing Weight 77.273, kg, Start date: 12/07/14 23:41:00, Stop date: 12/07/14 23:41:00 [facility] Morphine 2014-12-08 03:35:00 No 4 mg, Route: IVP, Drug form: INJ, ONCE, Dosing Weight 77.273, kg, Priority: STAT, Start date: 12/07/14 22:35:00, Stop date: 12/07/14 22:35:00 [facility] GI cocktail 2014-12-08 01:59:00 No Notes: G.I. Cocktail = antacid with simethicone 22.5 mL - lidocaine viscous 7.5 mL [facility] Morphine 2014-12-08 01:58:00 No 4 mg, Route: IVP, Drug form: INJ, ONCE, Dosing Weight 77.273, kg, Priority: STAT, Start date: 12/07/14 20:58:00, Stop date: 12/07/14 20:58:00 [facility] marti Protonix 2014-12-08 01:58:00 No 40 mg, Route: IVP, ONCE, Dosing Weight 77.273, kg, Priority: STAT, Start date: 12/07/14 20:58:00, Stop date: 12/07/14 20:58:00 [facility] [place] Clonidine 2014-12-08 00:49:00 No 0.1 mg, Route: PO, Drug form: TAB, ONCE, Dosing Weight 77.273, kg, Priority: STAT, Start date: 12/07/14 19:49:00, Stop date: 12/07/14 [facility]:49[facility]00 [facility] 2014-12-08 00:49:00 No 12.5 mg, Route: IVPB, ONCE, Dosing Weight 77.273, kg, Priority: STAT, Start date: 12/07/14 19:49:00, Stop date: 12/07/14 19:49:00 [facility] Sodium Chloride 0.154 MEQ/ML Injectable Solution 2014-12-08 00:4 8:00 No 1,000 mL, 1,000 ml/hr, Infus e Over: 1 hr, Route: IV, ONCE, Priority: STAT, Dosing Weight 77.273 kg, Start date: 12/07/14 19:48:00, Duration: 1 doses or times, Stop date: 12/07/14 19:48:00 Navarro guzmán [facility] metoprolol tartrate 50 mg oral tablet 2014-12-01 21:20:58 Y es 50 mg = 1 tab, PO, Q12H, # 120 tab, 0 [facility]ill[facility] mg oral tablet 2014-12-01 21:20:56 Yes 20 mg = 1 tab, PO, BID, # 60 tab, 0 Refill(s) [facility] clopidogrel 75 MG Oral Tablet [Plavix] 2014-12-01 21:20:47 Yes 75 mg = 1 tab, PO, Daily, # 30 tab, 0 Refill(s) [facility] Aspirin 325 MG Oral Tablet 2014-12-01 21:20:16 Yes 325 mg, PO, Daily, # 30 tab, 0 Refill(s) aJcob Royer marti Temazepam 30 MG Oral Capsule [Restoril] 2014-12-01 21:19:00 Yes 30 mg = 1 cap, PO, Bedtime, X 7 day, # 7 cap, 0 Refill(s) Jacob Plascencia Diazepam 10 MG Oral Tablet [Valium] 2014-12-01 21:19:00 Yes 10 mg = 1 tab, PO, TID, PRN Anxiety, X 7 day, # 21 tab, 0 Refill(s) Jacob Plascencia levothyroxine 200 mcg (0.2 mg) oral tablet 2014-12-01 21:19:00 Yes 200 microgram = 1 tab, PO, Daily, # 30 tab, 0 Refill(s) Jacob Plascencia Clonidine Hydrochloride 0.1 MG Oral Tablet 2014-12-01 21:19:00 Yes 0.1 mg = 1 tab, PO, TID, PRN Hypertension, # 90 tab, 0 Refill(s) Jacob Plascencia tramadol hydrochloride 50 MG Oral Tablet 2014-12-01 21:19:00 Yes 50 mg = 1 tab, PO, Q6H, PRN Pain, X 10 day, # 40 tab, 0 Refill(s) Jacob Plascencia erythromycin 250 mg oral tablet 2014-12-01 21:19:00 Yes 250 mg = 1 tab, PO, Q6H, X 10 day, # 40 tab, 0 Refill(s) Jacob Plascencia promethazine 25 mg oral tablet 2014-12-01 21:19:00 Yes 25 mg = 1 tab, PO, Q4H, PRN Allergic reaction, X 7 day, # 42 tab, 0 Refill(s) Jacob Plascencia pantoprazole 40 mg oral enteric coated tablet 2014-12-01 21:19:0 0 Yes 40 mg = 1 tab, PO, Before Dinner, # 30 tab, 0 Refill(s) Jacob Plascencia hyoscyamine 0.125 mg sublingual tablet 2014-12-01 21:19:00 Yes 0.125 mg = 1 tab, PO, Before Meals & Bedtime, # 120 tab, 0 Refill(s) Jacob Plascencia hydrOXYzine hydrochloride 10 mg/5 mL oral syrup 2014-11-29 23:24 :00 No Notes: (Same as: Atarax) [facility] Ethylsuccinate 40 MG/ML Oral Suspension 11-29 22:00:00 No Notes: (Same as: E.E.S.-400) [facility] Hydroxyzine 2014-11-29 21:45:00 No Notes: (Same as: Vistaril) Avoid alcohol. [facility] Tylenol 2014-11-28 16:53:00 No Notes: Do not exceed 4 gm/day. (Same as: Tylenol) [facility] Dilaudid 2014-11-28 16:53:00 No 1 mg, 1 mL, Route: IV, Drug form: INJ, Q4H, Dosing Weight 81.818, kg, PRN Pain Score 7-10, Start date: 11/28/14 11:53:00, Duration: 30 day, Stop date: 12/28/14 11:52:00 [facility] [place] Levsin 2014-11-28 02:00:00 No Notes: (Same as: Levsin) Take 30 min before meal [facility] Protonix 2014-11-26 21:30:00 No Notes: Tablet should not be chewed or crushed. (Same as: Protonix) [facility] Levsin 2014-11-26 14:34:00 No Notes: (Same as: Levsin) Take 30 min before meal [facility] [place] Sodium Chloride 0.154 MEQ/ML Injectable Solution 2014-11-26 13:1 5:00 No 500 mL, Rate: 25 ml/hr, Infu se over: 20 hr, Route: IV, Dosing Weight 81.818 kg, Total Volume: 500, Start date: 11/26/14 8:15:00, Duration: 1 day, Stop date: 11/27/14 8:14:00 [facility] Dilaudid 2014-11-25 22:51:00 No 1 mg, 1 mL, Route: IVP, Drug form: INJ, ONCE, Dosing Weight 81.818, kg, Priority: STAT, Start date: 11/25/14 17:51:00, Stop date: 11/25/14 17:51:00 [facility] Plavix 2014-11-25 14:00:00 No Notes: (Same As: Plavix) [facility] Aspirin 325 MG Oral Tablet 2014-11-25 14:00:00 No Notes: Take with food. [facility] Thyroxine 2014-11-25 11:30:00 No Notes: Take 1 hour before or 2 hours after meal; Enteral feeds may interefere with the absorption of this medication. (Same as: Levothroid) [facility]l [facility] Famotidine 20 MG Oral Tablet 2014-11-25 02:00:00 No Notes: (Same as: Pepcid) [facility] Restoril 2014-11-25 02:00:00 No Notes: (Alexandro e As: Restoril) [facility] metoprolol tartrate 2014-11-25 02:00:00 No Notes: (Same as: Lopressor) [facility] Lisinopril 2014-11-25 02:00:00 No Notes: (Same as: Prinivil, Zestril) [facility] Lipitor 2014-11-25 02:00:00 No Notes: (Same as: Lipitor) [facility] Dilaudid 2014 22:16:00 No 0.5 mg, 0.5 mL, Route: IV, Drug form: INJ, Q3H, Dosing Weight 81.818, kg, PRN Pain Score 7-10, Start date: 11/24/14 17:16:00, Duration: 30 day, Stop date: 12/24/14 17:15:00 [facility] Acetaminophen 325 MG / Hydrocodone Bitartrate 10 MG Or al Tablet [Stanfield 10/325] 2014 22:13:00 No Note s: Do not exceed 4gm/day of acetaminophen. (Same as: Stanfield 325/10) [facility] Valium 2014 22:12:00 No Notes: (Same as: Valium) [facility] Phenergan 2014 06:07:00 No Notes: Do not give IV push. (Same as: Phenergan) [facility] Saline Flush 0.9% 2014 02:00:00 No Notes: (Same as: BD Posiflush) [facility] Dilaudid 2014-11-23 23:49:00 No 0.5 mg, 0.5 mL, Route: IV, Drug form: INJ, Q4H, Dosing Weight 81.818, kg, PRN Pain Score 7-10, Start date: 11/23/14 18:49:00, Duration: 30 day, Stop date: 12/23/14 18:48:00 [facility] [place] Phenergan 2014-11-23 23:49:00 No Notes: (Sa me as: Phenergan) Jacob Plascencia Magnesium Sulfate 2014-11-23 23:46:00 No 2 gm, 50 mL, Route: IVPB, Drug form: INJ, ONCE, Dosing Weight 81.818, kg, Total dose = 2 gm, Start date: 11/23/14 18:46:00, Duration: 1 doses or times, Stop date: 11/23/14 18:46:00 [facility] normal saline 0.9% IV 1,000 mL 2014-11-23 23:39:00 No 1,000 mL, Rate: 80 ml/hr, Infuse over: 12.5 hr, Route: IV, Dosing Weight 81.818 kg, Total Volume: 1,000, Start date: 11/23/14 18:39:00, Stop date: 12/23/14 18:38:00 [facility] nitroglycerin 0.4 mg sublingual tablet 2014-11-23 23:37:00 No Notes: (Same as:Nitroquick, Nitrostat) "Do Not Crush" Sublingual tablet [facility] atropine 2014-11-23 23:36:00 No 0.5 mg, 5 mL, Route: IVP, Drug form: INJ, PRN, PRN Bradycardia, Start date: 11/23/14 18:36:00, Duration: 30 day, Stop date: 12/23/14 18:35:00 [facility] Pepcid 2014-11-23 23:21:00 No Notes: (Same as: Pepcid) Can be dilute in 5-10cc NS IVP: Slow IV push over at least 2 minutes. [facility] Dilaudid 2014-11-23 22:57:00 No 1 mg, Route: IVP, ONCE, Dosing Weight 81.818, kg, Priority: STAT, Start date: 11/23/14 17:57:00, Stop date: 11/23/14 17:57:00 [facility] [place] Benadryl 2014-11-23 22:56:00 No 25 mg, Route: IVP, ONCE, Dosing Weight 81.818, kg, PRN Allergic reaction, Start date: 11/23/14 17:56:00 [facility] Reglan 2014-11-23 22:55:00 No 10 mg, Route: IVP, ONCE, Dosing Weight 81.818, kg, Start date: 11/23/14 17:55:00, Stop date: 11/23/14 17:55:00 [facility] Clonidine Hydrochloride 0.1 MG Oral Tablet 2014-11-23 22:42:00 No 160 [facility] Droperidol 2014-11-23 22:42:00 No 0.625 mg, Route: IVP, ONCE, Dosing Weight 81.818, kg, PRN Nausea, Start date: 11/23/14 17:42:00, Stop date: 12/23/14 17:41:00 [facility] Saline Flush 0.9% 2014-11-23 22:17:00 No Notes: (Same as: BD Posiflush) [facility] Morphine 2014-11-23 22:17:00 No Not es: (Same as:MORPhine Sulfate) [facility] Nitroglycerin 2014-11-23 22:17:00 No Notes: (Same as:Nitroquick, Nitrostat) "Do Not Crush" Sublingual tablet [facility] Morphine 2014-11-23 20:34:00 No Not es: (Same as:MORPhine Sulfate) [facility] Clonidine Hydrochloride 0.1 MG Oral Tablet 2014-11-23 20:33:00 No Notes: (Same As: Catapres) [facility] Labetalol 2014-11-23 20:33:00 No Notes: (Same as: Normodyne, Trandate) Push over 2 minutes Give bolus over 2-3 minutes. [facility] Ativan 2014-11-23 19:33:00 No 1 mg, Route: PO, Drug form: TAB, ONCE, Dosing Weight 81.818, kg, Priority: STAT, Start date: 11/23/14 14:33:00, Stop date: 11/23/14 14:33:00 [facility] Nitroglycerin 2014-11-23 18:20:00 No Notes: (Same as:Nitroquick, Nitrostat) "Do Not Crush" Sublingual tablet [facility] Morphine 2014-11-23 18:13:00 No 4 mg, Route: IVP, Drug form: INJ, ONCE, Dosing Weight 81.818, kg, Priority: STAT, Start date: 11/23/14 13:13:00, Stop date: 11/23/14 13:13:00 [facility] Saline Flush 0.9% 2014-11-23 17:33:00 No Notes: (Same as: BD Posiflush) [facility] multivitamin with minerals 2014-09-19 14:00:00 No Notes: (Same as:Thera-M, Theragran-M) Give with food. [facility] Thyroxine 2014-09-19 14:00:00 No Notes: Take 1 hour before or 2 hours after meal; Enteral feeds may interefere with the absorption of this medication.(Same as:Levothroid, Synthroid) [facility] Aspirin 325 MG Oral Tablet 2014-09-19 14:00:00 No 325 mg, Route: PO, Drug form: TAB, Daily, Dosing Weight 79.545, kg, Start date: 09/19/14 9:00:00, Duration: 30 day, Stop date: 10/18/14 9:00:00 [facility] Plavix 2014-09-19 14:00:00 No 75 mg, Route: PO, Drug form: TAB, Daily, Dosing Weight 79.545, kg, Start date: 09/19/14 9:00:00, Duration: 30 day, Stop date: 10/18/14 9:00:00 [facility] potassium chloride 2014-09-19 14:00:00 No 80 mEq, Route: PO, Daily, Dosing Weight 79.545, kg, Start date: 09/19/14 9:00:00, Duration: 30 day, Stop date: 10/18/14 9:00:00 [facility] metoprolol tartrate 2014-09-19 02:00:00 No 50 mg, Route: PO, Drug form: TAB, Q12H, Dosing Weight 79.545, kg, Start date: 09/18/14 21:00:00, Duration: 30 day, Stop date: 10/18/14 9:00:00 [facility] Lipitor 2014-09-19 02:00:00 No 80 mg, Route: PO, Drug form: TAB, Bedtime, Dosing Weight 79.545, kg, Start date: 09/18/14 21:00:00, Duration: 30 day, Stop date: 10/17/14 21:00:00 Jose Bernal Restoril 2014-09-19 02:00:00 No 30 mg, Route: PO, Drug form: CAP, Bedtime, Dosing Weight 79.545, kg, Start date: 09/18/14 21:00:00, Duration: 30 day, Stop date: 10/17/14 21:00:00 Jose caraballo [facility] Lisinopril 2014-09-18 22:00:00 No 20 mg, Route: PO, Drug form: TAB, BID, Dosing Weight 79.545, kg, Start date: 09/18/14 17:00:00, Duration: 30 day, Stop date: 10/18/14 9:00:00 Jacob oneal acetaminophen-hydrocodone 325 mg-10 mg oral tablet 2014-09-03 6 17:26:00 No Notes: Do not exceed 4gm/day of acetamino phen. (Same as: Stanfield 325/10) Jacob Plascencia Hydralazine Hydrochloride 10 MG Oral Tablet 2014-09-18 17:19:00 No Notes: (Same as: Apresoline) May interfere w/enteral feedings. Take With Food Jacob Plascencia Acetaminophen 325 MG / Hydrocodone Bitartrate 10 MG Or al Tablet [Stanfield 10/325] 2014-09-18 17:17:00 No Note s: Do not exceed 4gm/day of acetaminophen. (Same as: Stanfield 325/10) [facility] [place] metoprolol tartrate 50 mg oral tablet 2014-09-18 16:56:00 Y es 50 mg = 1 tab, PO, Q12H, # 120 tab, 0 Refill(s) [facility] [place] clopidogrel 75 MG Oral Tablet [Plavix] 2014-09-18 16:56:00 Yes 75 mg = 1 tab, PO, Daily, # 30 tab, 0 Refill(s) [facility] [place] atorvastatin 80 MG Oral Tablet [Lipitor] 2014-09-18 16:56:00 Yes 80 mg = 1 tab, PO, Bedtime, # 30 tab, 0 Refill(s) [facility] lisinopril 20 mg oral tablet 2014-09-18 16:56:00 Yes 20 mg = 1 tab, PO, BID, # 60 tab, 0 Refill(s) [facility] Aspirin 325 MG Oral Tablet 2014-09-18 16:56:00 Yes 325 mg, PO, Daily, # 30 tab, 0 Refill(s) [facility] Hydralazine Hydrochloride 10 MG Oral Tablet 2014-09-18 16:56:00 Yes 160 mmHg, # 120 tab, 0 Refill(s) Amrit savage [facility] Saline Flush 0.9% 2014-09-18 14:00:00 No Notes: (Same as: BD Posiflush) [facility] Valium 2014-09-18 12:54:00 No Notes: (Same as: Valium) [facility] metoprolol tartrate 2014-09-18 12:54:00 No Notes: (Same as: Lopressor) [facility] Lisinopril 2014-09-18 12:54:00 No Notes: (Same as: Prinivil, Zestril) [facility] clopidogrel 75 MG Oral Tablet [Plavix] 2014-09-18 12:42:00 No 75 mg = 1 tab, PO, Daily [facility] lisinopril 20 mg oral tablet 2014-09-18 12:42:00 No 20 mg = 1 tab, PO, BID, 0 Refill(s) [facility] Temazepam 30 MG Oral Capsule [Restoril] 2014-09-18 12:42:00 Yes 30 mg = 1 cap, PO, Bedtime [facility] Diazepam 10 MG Oral Tablet [Valium] 2014-09-18 12:42:00 Yes 10 mg = 1 tab, PO, TID, PRN Anxiety [facility] metoprolol tartrate 50 mg oral tablet 2014-09-18 12:42:00 N o 50 mg = 1 tab, PO, Q12H [facility] levothyroxine 200 mcg (0.2 mg) oral tablet 2014-09-18 12:42:00 Yes 200 microgram = 1 tab, PO, Daily, # 30 tab [facility] Aspirin 2014-09-18 12:42:00 No 325 mg, PO, Daily, 0 Refill(s) [facility] 2014-09-18 12:42:00 Yes 1 tab, PO, Daily, 0 Refill(s) [facility] atorvastatin 80 MG Oral Tablet [Lipitor] 2014-09-18 12:42:00 No 80 mg = 1 tab, PO, Bedtime [facility] Acetaminophen 325 MG / Hydrocodone Bitartrate 10 MG Or al Tablet [Stanfield 10/325] 2014-09-18 12:42:00 Yes 1-2 tab, PO, Q4-6H , PRN Pain [facility] potassium chloride 2014-09-18 12:42:00 Yes 8 0 mEq, PO, Daily [facility] Phenergan 2014-09-18 11:35:00 No Notes: Do not give IV push. (Same as: Phenergan) [facility] Metoprolol 2014-09-18 10:09:00 No 5 mg, Route: IV, ONCE, Dosing Weight 79.545, kg, Start date: 09/18/14 5:09:00, Stop date: 09/18/14 5:09:00 [facility] Morphine 2014-09-18 10:08:00 No 4 mg, Route: IVP, ONCE, Dosing Weight 79.545, kg, Start date: 09/18/14 5:08:00, Stop date: 09/18/14 5:08:00 [facility] Saline Flush 0.9% 2014-09-18 08:20:00 No Notes: (Same as: BD Posiflush) [facility] Nitroglycerin 2014-09-18 08:20:00 No Notes: (Same as:Nitroquick, Nitrostat) "Do Not Crush" Sublingual tablet [facility] Aspirin 325 MG Oral Tablet 2014-09-18 08:20:00 No Notes: Take with food. [facility] Ativan 2014-09-18 07:14:00 No 0.5 mg, Route: IVP, Drug form: INJ, ONCE, Dosing Weight 79.545, kg, PRN Anxiety, Start date: 09/18/14 2:14:00 [facility] Nitroglycerin 0.02 MG/MG Topical Ointment 2014-09-18 05:22:00 No 0.5 inch, Route: TOP, Dosing Weight 79.545, kg, ONCE, Start date: 09/18/14 0:22:00, Stop date: 09/18/14 0:22:00 [facility] Aspirin 325 MG Oral Tablet 2014-09-18 05:10:00 No 325 mg, Route: PO, Drug form: TAB, ONCE, Dosing Weight 79.545, kg, Priority: STAT, Start date: 09/18/14 0:10:00, Stop date: 09/18/14 0:10:00 [facility] Alprazolam (Xanax) 0.5 Mg TABLET Alprazolam (Xanax) 0.5 Mg TABLET Yes .5 As Needed [facility] Clonazepam Clonazepam Yes 2 Three Times A Day [facility] Clopidogrel Bisulfate (Plavix) 75 Mg TABLET Clopidogre l Bisulfate (Plavix) 75 Mg TABLET Yes 1 Daily [facility] Levothyroxine Sodium (Synthroid) 50 Mcg TAB Levothyrox ine Sodium (Synthroid) 50 Mcg TAB Yes 200 Today At 6:30AM [facility] Levothyroxine Sodium Levothyroxine Sodium Yes 175 Daily [facility] Lisinopril Lisinopril Yes 10 Twice A Day [facility] Oxycodone Hcl Oxycodone Hcl Yes 10 Thre e Times A Day as needed for Rn [facility] Temazepam (Restoril) 30 Mg CAPSULE Temazepam (Restoril) 30 Mg CAPSULE Yes 30 Bedtime [facility] Atorvastatin Calcium (Lipitor) 20 Mg TABLET Atorvastat in Calcium (Lipitor) 20 Mg TABLET 2019-09-06 00:00:00 No 20 80 [facility] Metoprolol Succinate (Toprol Xl) 50 Mg TAB.SR.24H Meto prolol Succinate (Toprol Xl) 50 Mg TAB.SR.24H 2019-09-06 00:00:00 No 1 Ally ly [facility] Potassium Chloride Potassium Chloride 2019-08-31 00:00:00 No 20 Daily [facility] Tramadol Hcl (Ultram) 50 Mg TABLET Tramadol Hcl (Ultram) 50 Mg T ABLET 2019-08-31 00:00:00 No 50 As Needed as needed for Pain [facility] Vital Signs Vital Name Observation Time Observation Value Comments Source Body Temperature 2019-09-29 11:32:00 97.3 [degF] [facility] Weight 2019-09-28 01:34:00 139.06 [lb_av] [facility] BMI (Body Mass Index) 2019-09-28 01:34:00 24.6 kg/m2 [facility] Heart Rate 2016-04-13 20:51:00 [facility] Temperature Oral (F) 2016-04-13 20:51:00 98.7 F [facility] Systolic (mm Hg) 2016-04-13 20:51:00 [facility] rial [facility] Diastolic (mm Hg) 2016-04-13 20:51:00 [facility] Respitory Rate 2016-04-13 20:51:00 [facility] Systolic (mm Hg) 2016-04-13 16:42:00 Navarro rial [facility] Diastolic (mm Hg) 2016-04-13 16:42:00 [facility] Temperature Oral (F) 2016-04-13 16:42:00 98.7 F [facility] Respitory Rate 2016-04-13 16:42:00 [facility] Heart Rate 2016-04-13 16:42:00 [facility] Weight 2016-04-13 14:56:00 [facility] Height 2016-04-13 14:56:00 177.8 cm [facility] BMI Calculated 2016-04-13 14:56:00 [facility] Systolic (mm Hg) 2016-04-13 13:37:00 Navarro rial [facility] Diastolic (mm Hg) 2016-04-13 13:37:00 [facility] Temperature Oral (F) 2016-04-13 13:37:00 98.0 F [facility] Heart Rate 2016-04-13 13:37:00 [facility] Respitory Rate 2016-04-13 13:37:00 [facility] Weight 2016-04-12 09:59:00 [facility] BMI Calculated 2016-04-12 09:59:00 [facility] Height 2016-04-12 09:59:00 177.8 cm [facility] Height 2016-04-12 03:37:00 160.02 cm [facility] BMI Calculated 2016-04-12 03:37:00 [facility] Weight 2016-04-12 03:37:00 [facility] Weight 2016-03-31 16:29:00 [facility] Height 2016-03-31 16:29:00 160.02 cm [facility] Systolic (mm Hg) 2016-03-31 16:29:00 Navarro rial [facility] Diastolic (mm Hg) 2016-03-31 16:29:00 [facility] Temperature Oral (F) 2016-03-31 16:29:00 97.9 F [facility] Respitory Rate 2016-03-31 16:29:00 [facility] Heart Rate 2016-03-31 16:29:00 [facility] BMI Calculated 2016-03-31 16:29:00 [facility] Temperature Oral (F) 2016-03-27 17:24:00 98.2 F [facility] Respitory Rate 2016-03-27 17:24:00 [facility] Heart Rate 2016-03-27 17:24:00 [facility] Systolic (mm Hg) 2016-03-27 17:24:00 Navarro rial [facility] Diastolic (mm Hg) 2016-03-27 17:24:00 [facility] Weight 2016-03-27 16:04:00 [facility] BMI Calculated 2016-03-27 16:04:00 [facility] Height 2016-03-27 16:04:00 160.02 cm [facility] Respitory Rate 2016-03-27 16:04:00 [facility] Heart Rate 2016-03-27 16:04:00 [facility] Systolic (mm Hg) 2016-03-27 16:04:00 Navarro rial [facility] Diastolic (mm Hg) 2016-03-27 16:04:00 [facility] Temperature Oral (F) 2016-03-27 16:04:00 98.3 F [facility] Respitory Rate 2014-12-08 17:05:00 [facility] Systolic (mm Hg) 2014-12-08 17:05:00 [facility] Diastolic (mm Hg) 2014-12-08 17:05:00 [facility] Weight 2014-12-08 15:32:00 [facility] Systolic (mm Hg) 2014-12-08 13:00:00 [facility] Diastolic (mm Hg) 2014-12-08 13:00:00 [facility] Respitory Rate 2014-12-08 13:00:00 [facility] Temperature Oral (F) 2014-12-08 13:00:00 97.4 F [facility] Heart Rate 2014-12-08 13:00:00 [facility] Height 2014-12-08 08:51:00 160.02 cm [facility] Weight 2014-12-08 08:51:00 [facility] BMI Calculated 2014-12-08 08:51:00 [facility] Temperature Oral (F) 2014-12-08 08:10:00 97.5 F [facility] Heart Rate 2014-12-08 08:10:00 [facility] Systolic (mm Hg) 2014-12-08 08:10:00 Navarro rial [facility] Diastolic (mm Hg) 2014-12-08 08:10:00 [facility] Respitory Rate 2014-12-08 08:10:00 [facility] Temperature Oral (F) 2014-12-08 07:24:00 97.7 F [facility] Weight 2014-12-07 22:35:00 [facility] BMI Calculated 2014-12-07 22:35:00 [facility] Height 2014-12-07 22:35:00 160.02 cm [facility] Heart Rate 2014-12-07 22:35:00 [facility] Temperature Oral (F) 2014-12-01 19:57:00 97.9 F [facility] Respitory Rate 2014-12-01 19:57:00 [facility] Systolic (mm Hg) 2014-12-01 19:57:00 [facility] Diastolic (mm Hg) 2014-12-01 19:57:00 [facility] Heart Rate 2014-12-01 19:57:00 [facility] Systolic (mm Hg) 2014-12-01 18:20:00 [facility] Diastolic (mm Hg) 2014-12-01 18:20:00 [facility] Respitory Rate 2014-12-01 16:55:00 [facility] Systolic (mm Hg) 2014-12-01 16:55:00 Navarro [facility] Diastolic (mm Hg) 2014-12-01 16:55:00 [facility] Heart Rate 2014-12-01 16:55:00 [facility] Temperature Oral (F) 2014-12-01 16:55:00 98.1 F [facility] Respitory Rate 2014-12-01 12:56:00 [facility] Temperature Oral (F) 2014-12-01 12:56:00 97.5 F [facility] Heart Rate 2014-12-01 12:56:00 [facility] Weight 2014-11-26 21:37:00 [facility] Height 2014-11-23 17:05:00 160.02 cm [facility] Weight 2014-11-23 17:05:00 [facility] BMI Calculated 2014-11-23 17:05:00 [facility] Heart Rate 2014-09-18 17:03:00 [facility] Systolic (mm Hg) 2014-09-18 17:03:00 Navarro rial [facility] Diastolic (mm Hg) 2014-09-18 17:03:00 [facility] Temperature Oral (F) 2014-09-18 17:03:00 97.9 F [facility] Respitory Rate 2014-09-18 17:03:00 [facility] Weight 2014-09-18 13:04:00 [facility] Height 2014-09-18 13:04:00 160.02 cm [facility] BMI Calculated 2014-09-18 13:04:00 [facility] Heart Rate 2014-09-18 12:49:00 [facility] Respitory Rate 2014-09-18 12:49:00 [facility] Systolic (mm Hg) 2014-09-18 12:49:00 Navarro rial [facility] Diastolic (mm Hg) 2014-09-18 12:49:00 [facility] Temperature Oral (F) 2014-09-18 12:49:00 98.3 F [facility] Temperature Oral (F) 2014-09-18 10:00:00 98.0 F [facility] Systolic (mm Hg) 2014-09-18 10:00:00 [facility] Diastolic (mm Hg) 2014-09-18 10:00:00 [facility] Heart Rate 2014-09-18 10:00:00 [facility] Respitory Rate 2014-09-18 10:00:00 [facility] Height 2014-09-18 00:22:00 160.02 cm [facility] BMI Calculated 2014-09-18 00:22:00 Jose al [facility] Weight 2014-09-18 00:22:00 [facility] Procedures Procedure Date / Time Performed Performing Clinician Leticia adams CT of abdomen and pelvis without contrast 2019-09-19 00:00:00 [facility] Computed tomography of abdomen and pelvis with contrast 00:00:00 [facility] Hysterectomy [facility] Procedure on back [facility] Jodie nn Thyroidectomy [facility] CABG x 1 - Coronary artery bypass graft x 1<sup>1</sup> [facility] Stent placement [facility] Cholecystectomy [facility] Plan of Care Planned Activity Planned Date Details Comments Source Instructions Abdominal Pain - Pediatric C [facility] Instructions Chest Pain - Chest Wall [facility] Instructions Hypertension [facility] Instructions Vomiting - Adult [facility] Encounters Start Date/Time End Date/Time Encounter Type Admission Type Attendi [facility] Care Department Encounter ID Source 2016-04-11 21:28:00 2016-04-13 15:42:00 Outpatient Christiano Ceja [facility] [id number] 2016-03-31 10:12:00 2016-03-31 11:17:00 Outpatient Rosa Lam [facility] [id number] 2016-03-27 10:03:00 2016-03-27 11:20:00 Outpatient Lokesh Felix [facility] [id number] 2014-12-07 17:27:00 2014-12-08 13:00:00 Outpatient Luis Lyles MHSE MHSE [id number] 2014-11-23 11:54:00 2014-12-01 17:10:00 Outpatient Chevy Callaway MHSE MHSE [id number] 2014-09-17 18:40:00 2014-09-18 12:15:00 Outpatient Ruddy Guadarrama MHIE MHIE [id number] Results Test Description Test Time Test Comments Results Result Comments Source ABDOMEN ACUTE SERIES W/PA CXR 2019-10-04 15:06:00 [facility] [address] [place], [place] [id number] Patient Name: TRINITY FERNANDEZ MR #: [id number] : 1960 Age/Sex: 58/F Req #: [id number] Adm Physician: Ordered by: SAM HASTINGS MD Report #: [id number] Location: ER Room/Bed: Procedure: [id number] DX/ABDOMEN ACUTE SERIES W/PA CXR Exam Date: 10/04/19 Exam Time: 1400 REPORT STATUS: Signed EXAMINATION: ABDOMEN ACUTE SERIES W/PA CXR INDICATION: Abdominal pain COMPARISON: KUB of 09/28/2019 FINDINGS: LINES/TUBES:None LUNGS:The lungs are well-inflated. No focal consolidation or pulmonary edema. PLEURA:No pleural effusion or pneumothorax. MEDIASTINUM:The cardiomediastinal silhouette appears normal in size and shape. Coronary artery stent. BONES/SOFT TISSUES:No acute osseous injury. Sternotomy wires in place. ABDOMEN:Gaseous distention of the stomach. Otherwise, nonobstructive bowel gas pattern. No free air. Status post cholecystectomy. Surgical skin shruthi and surgical clips overlie the lower abdomen. Status post lumbar fusion. IMPRESSION: No focal pneumonia or pulmonary edema. Gaseous distention of the stomach. Signed by: Maria Valel MD on 10/04/2019 3:08 PM Dictated By: MARIA VALLE MD [id number] Transcribed By: JOVANY on 10/04/199 COPY TO: SAM HASTINGS MD URINALYSIS COMPLETE 2019-10-04 01:01:00 Test Item UA COLOR (test code = COLU) Light-Yellow YELLOW UA APPEARANCE (test code = APPU) CLEAR CLEAR UA GLUCOSE DIPSTICK (test code = DGLUU) NEGATIVE mg/dL NEGATIVE UA BILIRUBIN DIPSTICK (test code = BILU) NEGATIVE mg/dL NEGATIVE UA KETONE DIPSTICK (test code = KETU) NEGATIVE mg/dL NEGATIVE UA SPECIFIC GRAVITY (test code = SGU) >1.050 1.001-1.035 UA BLOOD DIPSTICK (test code = IVY) Negative mg/dL NEGATIVE UA PH DIPSTICK (test code = JAYLON) 7.0 5.0-8.0 UA PROTEIN DIPSTICK (test code = PROU) NEGATIVE mg/dL NEGATIVE UA UROBILINIOGEN DIPSTICK (test code = URO) Normal mg/dL NEGATIVE UA NITRITE DIPSTICK (test code = JAYASHREE) NEGATIVE NEGATIVE UA LEUKOCYTE ESTERASE W REFLEX (test code = LEUUR) NEGATIVE Roseanna/uL NEGATIVE UA WBC (test code = WBCU) 0-5 per HPF 0-5 UA RBC (test code = RBCU) 0-3 per HPF 0-5 UA EPITHELIAL CELLS (test code = EPIU) Few (2-5/hpf) per HPF Few UA BACTERIA (test code = BACU) NONE SEEN per HPF NONE UA MUCUS (test code = MUCU) FEW per LPF NONE-FEW Urine Source? Clean CatchURINALYSIS [id number] 00:39:00* Test Item Value Reference Range Interpretation Comments UA COLOR (test code = COLU) Light-Yellow YELLOW UA APPEARANCE (test code = APPU) CLEAR CLEAR UA GLUCOSE DIPSTICK (test code = DGLUU) NEGATIVE mg/dL NEGATIVE UA BILIRUBIN DIPSTICK (test code = BILU) NEGATIVE mg/dL NEGATIVE UA KETONE DIPSTICK (test code = KETU) NEGATIVE mg/dL NEGATIVE UA SPECIFIC GRAVITY (test code = SGU) >1.050 1.001-1.035 UA BLOOD DIPSTICK (test code = IVY) Negative mg/dL NEGATIVE UA PH DIPSTICK (test code = JAYLON) 7.0 5.0-8.0 UA PROTEIN DIPSTICK (test code = PROU) NEGATIVE mg/dL NEGATIVE UA UROBILINIOGEN DIPSTICK (test code = URO) Normal mg/dL NEGATIVE UA NITRITE DIPSTICK (test code = JAYASHREE) NEGATIVE NEGATIVE UA LEUKOCYTE ESTERASE W REFLEX (test code = LEUUR) NEGATIVE Roseanna/uL NEGATIVE UA WBC (test code = WBCU) per HPF 0-5 UA RBC (test code = RBCU) per HPF 0-5 UA EPITHELIAL CELLS (test code = EPIU) per HPF Few UA BACTERIA (test code = BACU) per HPF NONE Urine Source? Clean Catch- CT ABD PELVIS W/[id number] 18:45:00 Name: TRINITY FERNANDEZ [facility] [place] : 1961 Age/S: 57 / F [address] Unit #: [id number] Loc: [place] [address] Phys: Carrie Jeter MD Acct: [id number] Di s Date: Status: REG ER PHONE #: [phone] Exam Date: 10/03/2019 1816 FAX #: Reason: abd pain, swollen labia EXAMS: CPT CODE: [id number] CT ABD PELVIS W/CONT 00938 REASON FOR EXAM: abd pain , swollen labia EXAM ORDER DATE: 10/03/2019 1:41 PM O rdmehrdad M.D.: Carrie Jeter MD PROCEDURE: Axial CT images wer e acquired through the abdomen/pelvis at 5 mm intervals. Sagittal and cor onal reformatted images were generated. Automated exposure control was ut ilized for this reduction. Phases of contrast: venous and de layed COMPARISON: CT of the abdomen and pelvis March 23, 2016 FINDINGS: Visualized thorax: Trace left-sided pleura l effusion. Mild subsegmental atelectatic changes in the lung bases. Coron fidel stents are present. Hepatobiliary system: Prior cholecys tectomy. Hepatic parenchyma is within normal limits Pancreas : Normal Spleen: Normal Adrenal glands: Normal Genitourinary system: Right kidney demonstrates cortical scarring, unchanged from prior exam. This may represent sequela of prior infection . Prior hysterectomy Gastrointestinal tract and appendix: There is diverticulosis in the sigmoid colon without obvious diverticulitis. Post surgical changes are seen in the bowels in the pelvis and there are anasto motic sutures in what appears to be the transverse colon. Ab dominal vascular structures: Mild hypertrophic calcifications of the abdom inal aorta and iliac arteries Peritoneum and retroperitoneum: Smal l amount of free fluid is present in the pelvis. No free air. There is als o edema of the mesentery PAGE 1 Signed Report (CONTINUED) Name: TRINITY FERNANDEZ [facility] [place] : 1961 Age/S: 57 / F [address] Unit #: [id number] Loc: [facility] [place] 775 04 Phys: Carrie Jeter MD Acct: [id number] Dis Date: Status: REG ER PHONE #: [phone] Exam Date: 10/03/2019 181 FAX #: [phone] Reason: abd pain, swollen labia EXAMS: CPT CO DE: [id number] CT ABD PELVIS W/CONT 72829 <Continued> Musculoskeletal structures and abdominal wall: The patient has undergone fusion of L3-S1 with placement of disc spacers. Mild degenerative changes are present in the thoracic spine. There are also degenerative changes in the hips with subchondral cystic changes in the left acetabulum. Prior sternotomy. Postsurgical changes of laparotomy. There appears to be a fluid collection within the incision () measuring up to just and measures in size which may represent a postoperative seroma although developing abscess cannot be excluded. No abscess or collection or swelling of either labia is apparent IMPRESSION: Postsurgical changes as described above. Small amount of fluid is present in the pelvis however this is nonspecific and may be postsurgical. Findings of seroma versus developing abscess within the laparotomy incision. Location: [facility] at 1845 Reported and signed by: Dylan Gupta MD CC: Carrie Jeter MD Technologist:Selin Salmeron RT(R); SHIRIN Goldman CTDI: DLP: Trnscb Date/Time: 10/03/2019 (1844) t.SDR.RR31 Orig Print D/T: S: 10/03/2019 (1847) PAGE 2 Signed Report BASIC METABOLIC [id number] 16:35:00* Test Item Value Reference Range Interpretation Comments SODIUM (test code = NA) 139 mmol/L 136-145 N POTASSIUM (test code = K) 3.7 mmol/L 3.5-5.1 N CHLORIDE (test code = CL) 106.0 mmol/L 98-107 N CARBON DIOXIDE (test code = CO2) 28.0 mmol/L 21-32 N ANION GAP (test code = GAP) 8.7 10-20 L GLUCOSE (test code = GLU) 66 mg/dL 74-106 L BLOOD UREA NITROGEN (test code = BUN) 13 mg/dL 7-18 N GLOMERULAR FILTRATION RATE (test code = GFR) > 60 mL/min >=60 Estimated GFR by using Modified MDRD formula.Chronic kidney disease is defined as either kidney damageor GFR <60 mL/min/1.73 m2 for >3 months. CREATININE (test code = CREAT) 0.70 mg/dL 0.55-1.02 N Note change in reference range due to change in reagent. BUN/CREATININE RATIO (test code = BUN/CREA) 17.8 10-20 N CALCIUM (test code = CA) 9.1 mg/dL 8.5-10.1 N HEPATIC FUNCTION [id number] 16:35:00* Test Item Value Reference Range Interpretation Comments TOTAL PROTEIN (test code = PROT) 6.8 gram/dL 6.4-8.2 N ALBUMIN (test code = ALB) 2.6 g/dL 3.4-5.0 L GLOBULIN (test code = GLOB) 4.2 gram/dL 2.7-4.2 N ALBUMIN/GLOBULIN RATIO (test code = A/G) 0.6 0.75-1.50 L BILIRUBIN TOTAL (test code = BILT) 0.30 mg/dL 0.0-1.0 N BILIRUBIN DIRECT (test code = BILD) 0.14 mg/dL 0.0-0.20 N SGOT/AST (test code = AST) 29 IUnit/L 15-37 N SGPT/ALT (test code = ALT) 35 IUnit/L 12-78 N ALKALINE PHOSPHATASE TOTAL (test code = ALKP) 76 IUnit/L 45-117 N Note change in reference range due to change in reagent. [id number] 16:35:00* Test Item Value Reference Range Interpretation Comments LIPASE (test code = LIP) 51 U/L 73.0-393.0 L HCG SERUM [id number] 16:35:00* Test Item Value Reference Range Interpretation Comments HCG SERUM QUAL (test code = HCGQL) NEGATIVE NEGATIVE This HCGQL test is NOT applicable for MALE patients.Check with nurse about probable order error.If Tumor Marker Test needed, nurse should order test "HCGTU"(Test #550.71506) [id number] 16:35:00* Test Item Value Reference Range Interpretation Comments TROPONIN-I (test code = TROPI) <0.015 ng/mL 0-0.045 N PROTHROMBIN [id number] 16:33:00* Test Item Value Reference Range Interpretation Comments PROTHROMBIN TIME PATIENT (test code = PTP) 11.7 seconds 9.0-14.0 N INTERNATIONAL NORMAL RATIO (test code = INR) 1.0 0.8-1.2 N The therapeutic range for oral anticoagulant therapy formost indications is an international normalized ratio (INR)of between 2.0 and 3.0. The recommended therapeutic INRrange for various clinical situations is listed below: Clinical Situation INR range Pulmonary e mbolism treatment (2.0-3.0)Venous thrombosis treatmentVenous thrombosis prophylaxis (high risk surgery)Prevention of systemic embolism from: Acute myocardial infarction Valvular heart disease Atrial fibrillation Mechanical prosthetic heart valves (2.5-3.5) IS PATIENT ON ANTICOAGULANTS? NTHROMBOPLASTIN TIME [id number] 16:33:00* Test Item Value Reference Range Interpretation Comments THROMBOPLASTIN TIME PARTIAL (test code = PTT) 30.9 seconds 23.0-37. 0 N IS PATIENT ON ANTICOAGULANTS? NBASIC METABOLIC [id number] 16:25:00* Test Item Value Reference Range Interpretation Comments SODIUM (test code = NA) 139 mmol/L 136-145 N POTASSIUM (test code = K) 3.7 mmol/L 3.5-5.1 N CHLORIDE (test code = CL) 106.0 mmol/L 98-107 N CARBON DIOXIDE (test code = CO2) mmol/L 21-32 ANION GAP (test code = GAP) 10-20 GLUCOSE (test code = GLU) mg/dL 74-106 BLOOD UREA NITROGEN (test code = BUN) mg/dL 7-18 GLOMERULAR FILTRATION RATE (test code = GFR) mL/min >=60 CREATININE (test code = CREAT) mg/dL 0.55-1.02 BUN/CREATININE RATIO (test code = BUN/CREA) 10-20 CALCIUM (test code = CA) mg/dL 8.5-10.1 HEPATIC FUNCTION [id number] 16:25:00* Test Item Value Reference Range Interpretation Comments TOTAL PROTEIN (test code = PROT) gram/dL 6.4-8.2 ALBUMIN (test code = ALB) g/dL 3.4-5.0 GLOBULIN (test code = GLOB) gram/dL 2.7-4.2 ALBUMIN/GLOBULIN RATIO (test code = A/G) 0.75-1.50 BILIRUBIN TOTAL (test code = BILT) mg/dL 0.0-1.0 BILIRUBIN DIRECT (test code = BILD) mg/dL 0.0-0.20 SGOT/AST (test code = AST) IUnit/L 15-37 SGPT/ALT (test code = ALT) IUnit/L 12-78 ALKALINE PHOSPHATASE TOTAL (test code = ALKP) IUnit/L 45-117 [id number] 16:25:00* Test Item Value Reference Range Interpretation Comments LIPASE (test code = LIP) U/L 73.0-393.0 HCG SERUM [id number] 16:25:00* Test Item Value Reference Range Interpretation Comments HCG SERUM QUAL (test code = HCGQL) NEGATIVE NEGATIVE This HCGQL test is NOT applicable for MALE patients.Check with nurse about probable order error.If Tumor Marker Test needed, nurse should order test "HCGTU"(Test #550.38401) [id number] 16:25:00* Test Item Value Reference Range Interpretation Comments TROPONIN-I (test code = TROPI) ng/mL 0-0.045 BASIC METABOLIC [id number] 16:24:00* Test Item Value Reference Range Interpretation Comments SODIUM (test code = NA) 139 mmol/L 136-145 N POTASSIUM (test code = K) 3.7 mmol/L 3.5-5.1 N CHLORIDE (test code = CL) 106.0 mmol/L 98-107 N CARBON DIOXIDE (test code = CO2) mmol/L 21-32 ANION GAP (test code = GAP) 10-20 GLUCOSE (test code = GLU) mg/dL 74-106 BLOOD UREA NITROGEN (test code = BUN) mg/dL 7-18 GLOMERULAR FILTRATION RATE (test code = GFR) mL/min >=60 CREATININE (test code = CREAT) mg/dL 0.55-1.02 BUN/CREATININE RATIO (test code = BUN/CREA) 10-20 CALCIUM (test code = CA) mg/dL 8.5-10.1 HEPATIC FUNCTION [id number] 16:24:00* Test Item Value Reference Range Interpretation Comments TOTAL PROTEIN (test code = PROT) gram/dL 6.4-8.2 ALBUMIN (test code = ALB) g/dL 3.4-5.0 GLOBULIN (test code = GLOB) gram/dL 2.7-4.2 ALBUMIN/GLOBULIN RATIO (test code = A/G) 0.75-1.50 BILIRUBIN TOTAL (test code = BILT) mg/dL 0.0-1.0 BILIRUBIN DIRECT (test code = BILD) mg/dL 0.0-0.20 SGOT/AST (test code = AST) IUnit/L 15-37 SGPT/ALT (test code = ALT) IUnit/L 12-78 ALKALINE PHOSPHATASE TOTAL (test code = ALKP) IUnit/L 45-117 [id number] 16:24:00* Test Item Value Reference Range Interpretation Comments LIPASE (test code = LIP) U/L 73.0-393.0 HCG SERUM [id number] 16:24:00* Test Item Value Reference Range Interpretation Comments HCG SERUM QUAL (test code = HCGQL) NEGATIVE [id number] 16:24:00* Test Item Value Reference Range Interpretation Comments TROPONIN-I (test code = TROPI) ng/mL 0-0.045 CBC W/O [id number] 16:22:00* Test Item Value Reference Range Interpretation Comments WHITE BLOOD CELL (test code = WBC) 6.2 K/mm3 4.5-12.5 N RED BLOOD CELL (test code = RBC) 3.40 mill/mm3 3.7-5.2 L HEMOGLOBIN (test code = HGB) 10.8 gram/dL 11.5-15.5 L HEMATOCRIT (test code = HCT) 32.6 % 36.0-46.0 L MEAN CELL VOLUME (test code = MCV) 95.9 fL 80-98 N MEAN CELL HGB (test code = MCH) 31.8 picogram 27.0-33.0 N MEAN CELL HGB CONCETRATION (test code = MCHC) 33.1 gram/dL 33.0-36. 0 N RED CELL DISTRIBUTION WIDTH (test code = RDW) 13.9 % 11.6-16. 2 N PLATELET COUNT (test code = PLT) 536 K/mm3 150-450 H MEAN PLATELET VOLUME (test code = MPV) 8.9 fL 6.7-11.0 N ABDOMEN-1VIEW (KUB)2019-09-28 14:28:00 [place] [address] Patient Name: TRINITY FERNANDEZ MR #: [id number] : 1960 Age/Sex: 58/F Req #: [id number] Adm Physician: ANTELMO HEART MD Ordered by: MAURO SOLIS MD Report #: [id number] Location: MED/SURG3 Room/Bed: [facility] [place] Procedure: [id number] DX/ABDOMEN-1VIEW (KUB) Exam Date: 09/28/19 Exam Time: 1407 REPORT STATUS: Signed Exam: KUB - 2 views Indication: Abdominal Pain Comparison: KUB of 09/26/2019 Findings : Again seen are multiple prominent loops of gas-filled large and small bowel compatible with ileus in the postoperative setting. No free air. No acute o sseous injury. Status post cholecystectomy. Enteric tube has been removed. Unc hanged lumbosacral fusion hardware. Surgical clips overlie the midline abdomen . Impression: Interval removal of NG tube. Unchanged prominent air-f illed loops of large and small bowel compatible with ileus. No free air. Signed by: Maria Valle MD on 09/28/2019 2:31 PM Dictated By: MARIA VALLE MD 143 Transcribed By : JOVANY on 09/28/19 143 COPY TO: MAURO SOLIS MD Serum or plasma potassium measurement (moles/volume)2019-09-27 10:33:00* Test Item Value Reference Range Interpretation Comments Potassium Level (test code = 2823-3) 4.2 3.5-5.1 [facility] [id number] 10:33:00 * Test Item Value Reference Range Interpretation Comments Phosphorus Level (test code = AJP6952) 2.4 2.3-4.7 [facility]2019-09-26 22:13:00 [place] [address] Patient Name: TRINITY FERNANDEZ MR #: [id number] : 1960 Age/Sex: 58/F Req #: [id number] Adm Physician: ANTELMO HEART MD Ordered by: SOFI BAIG MD Report #: [id number] Location: MED/SURG3 Room/Bed: [facility] [place] Procedure: [id number] DX/ABDOMEN-1VIEW (KUB) Exam Date: 09/26/19 Exam Time: 2129 REPORT STATUS: Signed Exam: AP supine p ortable film Clinical History: Status post right hemicolectomy evaluated f or stool the colon Comparison: KUB 09/24/2019 DISCUSSION: Frontal view of the abdomen shows no air-filled, dilated loops of bowel, pneumatosis or pne umoperitoneum. Minimal amount of retained stool in the colon, predominantly in the distal transverse and descending colon, improved since prior exam. Inte rval placement of enteric tube, which projects coiled in the fundus, with dist al tip projecting at the level of the stomach body. Stable cholecystectomy cli ps and intrapedicular screws and vertical stabilizing bars in the lumbar spine . Multiple midline abdominal shruthi are again noted projecting in the mid to lower abdomen. A more superior line of shruthi is now seen more superiorly, at the level of L2. No acute bony abnormalities. IMPRESSION: 1. N o air-filled, dilated loops of bowel or pneumatosis. 2. Minimal amount of r etained stool in the colon, improved since prior exam. 3. Interval placemen t of enteric tube, with distal tip projecting in the region of the stomach bod y. The staff physician below has personally reviewed this exam on the date of dictation. Signed by: Dr. Mk Leos M.D. on 10:18 PM Dictated By: MK LEOS MD 17 Transcribed By: JOVANY on 09/26/192217 COPY TO: SOFI BAIG MD Blood leukocytes automated count (number/volume)2019-09-26 20:58:00* Test Item Value Reference Range Interpretation Comments White Blood Count (test code = 6690-2) 8.00 4.8-10.8 [facility] automated count (number/volume)2019-09-26 20:58:00* Test Item Value Reference Range Interpretation Comments Red Blood Count (test code = 789-8) 3.82 3.6-5.1 [facility]Blood hemoglobin measurement (moles/volume)2019-09-26 20:58:00* Test Item Value Reference Range Interpretation Comments Hemoglobin (test code = 47895-2) 12.1 12.0-16.0 [facility] HospitalAutomated blood hematocrit (volume fraction)2019-09-26 20:58:00* Test Item Value Reference Range Interpretation Comments Hematocrit (test code = 4544-3) 34.5 34.2-44.1 [facility] HospitalAutomated erythrocyte mean corpuscular [id number] 20:58:00* Test Item Value Reference Range Interpretation Comments Mean Corpuscular Volume (test code = 787-2) 90.3 81-99 [facility] HospitalAutomated erythrocyte mean corpuscular hemoglobin (mass per erythrocyte)2019-09-26 20:58:00* Test Item Value Reference Range Interpretation Comments Mean Corpuscular Hemoglobin (test code = 785-6) 31.7 28-32 [facility] [place] [facility] HospitalAutomated erythrocyte mean corpuscular hemoglobin concentration measurement (mass/volume)2019-09-26 20:58:00* Test Item Value Reference Range Interpretation Comments Mean Corpuscular Hemoglobin Concent (test code = 786-4) 35.1 31-35 [facility] HospitalRDW EcgIa-Ptm8720-97-23 20:58:00* Test Item Value Reference Range Interpretation Comments Red Cell Distribution Width (test code = 08807-0) 12.8 11.7 -14.4 [facility] HospitalAutomated blood platelet count (count/volume)2019-09-26 20:58:00* Test Item Value Reference Range Interpretation Comments Platelet Count (test code = 777-3) 278 140-360 [facility] HospitalAutomated blood segmented neutrophil count as percentage of total tudiiprxoj5791-89-95 20:58:00* Test Item Value Reference Range Interpretation Comments Neutrophils (%) (Auto) (test code = 72943-4) 68.1 38.7-80.0 [facility] [place] [facility] HospitalAutomated blood lymphocyte count as percentage ot total roeivjslyy4929-50-55 20:58:00* Test Item Value Reference Range Interpretation Comments Lymphocytes (%) (Auto) (test code = 736-9) 13.5 18.0-39.1 [facility] [place] [facility] HospitalAutomated blood monocyte count as percentage of total vjadsrcszx5226-16-36 20:58:00* Test Item Value Reference Range Interpretation Comments Monocytes (%) (Auto) (test code = 5905-5) 15.9 4.4-11.3 [facility] [place] [facility] HospitalAutomated blood eosinophil count as percentage of total acqjrypoay1756-77-24 20:58:00* Test Item Value Reference Range Interpretation Comments Eosinophils (%) (Auto) (test code = 713-8) 1.1 0.0-6.0 [facility] [place] [facility] HospitalAutomated blood basophil count as percentage of total orpigzwhxt5983-27-51 20:58:00* Test Item Value Reference Range Interpretation Comments Basophils (%) (Auto) (test code = 706-2) 0.4 0.0-1.0 [facility] [place] [facility] HospitalFluoroscopic procedure less than one hour qmxzfcmv6992-54-46 20:58:00* Test Item Value Reference Range Interpretation Comments IM GRANULOCYTES % (test code = IM GRANULOCYTES %) 1.0 0.0- 1.0 [facility] [place] [facility] HospitalAutomated blood neutrophil count 2019-09-26 20:58:00* Test Item Value Reference Range Interpretation Comments Neutrophils # (Auto) (test code = 751-8) 5.5 2.1-6.9 [facility] [place] [facility] HospitalBlood lymphocytes count (number/volume) 2019-09-26 20:58:00* Test Item Value Reference Range Interpretation Comments Lymphocytes # (Auto) (test code = 98840-6) 1.1 1.0-3.2 [facility] [place] [facility] HospitalBlood monocytes automated count (number/volume)2019-09-26 20:58:00* Test Item Value Reference Range Interpretation Comments Monocytes # (Auto) (test code = 742-7) 1.3 0.2-0.8 [facility] [place] [facility] HospitalAutomated blood eosinophil count 2019-09-26 20:58:00* Test Item Value Reference Range Interpretation Comments Eosinophils # (Auto) (test code = 711-2) 0.1 0.0-0.4 [facility] [place] [facility] HospitalAutomated blood basophil count (count/volume)2019-09-26 20:58:00* Test Item Value Reference Range Interpretation Comments Basophils # (Auto) (test code = 704-7) 0.0 0.0-0.1 [facility] [place] [facility] HospitalFluoroscopic procedure less than one hour ekrfzsem7975-32-73 20:58:00* Test Item Value Reference Range Interpretation Comments Absolute Immature Granulocyte (auto (lam t code = Absolute Immature Granulocyte (auto) 0.08 0-0.1 [facility] sodium [facility] (moles/volume)2019-09-26 20:58:00* Test Item Value Reference Range Interpretation Comments Sodium Level (test code = 2951-2) 136 136-145 [facility] chloride measurement (moles/volume)2019-09-26 20:58:00* Test Item Value Reference Range Interpretation Comments Chloride Level (test code = 2075-0) 102 98-107 [facility] or plasma carbon dioxide, total measurement (moles/volume)2019-09-26 20:58:00* Test Item Value Reference Range Interpretation Comments Carbon Dioxide Level (test code = 2028-9) 23 22-29 [facility] or plasma anion paq3507-55-47 20:58:00* Test Item Value Reference Range Interpretation Comments Anion Gap (test code = 59968-0) 15.1 8-16 [facility] plasma urea nitrogen measurement (mass/volume)2019-09-26 20:58:00* Test Item Value Reference Range Interpretation Comments Blood Urea Nitrogen (test code = 3094-0) 5 7-26 [facility] plasma creatinine measurement (mass/volume)2019-09-26 20:58:00* Test Item Value Reference Range Interpretation Comments Creatinine (test code = 2160-0) 0.61 0.57-1.11 [facility]rum or plasma urea nitrogen/creatinine mass innmc9349-08-34 20:58:00* Test Item Value Reference Range Interpretation Comments BUN/Creatinine Ratio (test code = 3097-3) 8 6-25 [facility] HospitalEstimated glomerular filtration rate (GFR) mpcmluzijrdtb4667-26-07 20:58:00* Test Item Value Reference Range Interpretation Comments Estimat Glomerular Filtration Rate (test code = 849491887) > 60 >60 Ranges were taken from the National Kidney Disease Education Program and the [facility] literature.Reference ranges:60 or greater: Jvsgll70-55 ( for 3 consecutive months): Chronic kidney disease 15 or less: Kidney failureMethodist [facility] HospitalGlucose pmsogvmtrsg1504-27-19 20:58:00* Test Item Value Reference Range Interpretation Comments Glucose Level (test code = FMP9803) 127 74-118 [facility]ererum or plasma calcium measurement (mass/volume)2019-09-26 20:58:00* Test Item Value Reference Range Interpretation Comments Calcium Level (test code = 23168-5) 8.6 8.4-10.2 [facility]rum or plasma magnesium measurement (mass/volume)2019-09-26 20:58:00* Test Item Value Reference Range Interpretation Comments Magnesium Level (test code = 74343-9) 1.5 1.3-2.1 [facility]ererum or plasma thyroxine (T4) free measurement (mass/volume)2019-09-24 18:45:00* Test Item Value Reference Range Interpretation Comments Free Thyroxine (test code = 3024-7) 1.62 0.8-1.8 [facility]rum or plasma thyrotropin measurement by detection limit <= 0.005 miu/l (units/volume)2019-09-24 18:45:00* Test Item Value Reference Range Interpretation Comments Thyroid Stimulating Hormone (TSH) (test code = 28289-6) 0.409 0.350-4.940 [facility]AB[facility] (KUB)2019-09-24 10:09:00 [facility] [address] [place] [address] Patient Name: TRINITY FERNANDEZ MR #: [id number] : 1960 Age/Sex: 58/F Req #: [id number] Adm Physician: ANTELMO HEART MD Ordered by: MAURO SOLIS MD Repor t #: [id number] Location: MED/SURG3 Room/Bed : [facility] [place] Procedure: [id number] DX/ABDOMEN-1VIEW (KUB) Exam Date: 09/24/19 Exam Time: 0940 REPORT STATUS: Signed Abdomen/KUB IN DICATION: abdominal pain and constipation COMPARISON: CT abdomen/pelvi s 09/19/2019, abdomen x-ray 09/11/2019. FINDINGS: Portable, supine image ob tained at 0956 hours. Medical Devices: Median sternotomy wires and mediasti nal vascular clips are stable. Cholecystectomy clips in the right upper quadra nt. Pedicle screws and vertical stabilizing bars in the lumbar spine appear in tact. There are midline abdominal wall shruthi. Bowel: Formed stool in th e ascending colon and hepatic flexure. No evidence of stool in the descending colon or rectum. There is gaseous distention of the transverse colon and splen ic flexure of the colon. No dilated small bowel loops or pneumatosis. Carlos e air: None Abdominal calcifications: None over the renal shadows or along the expected course of the ureters. Bilateral subcutaneous calcifications in the posterior pelvis are redemonstrated. Organomegaly: None Lung bas es: Mild left basilar atelectasis. Bones: No focal osseous lesions. IM PRESSION: Moderate stool burden in the right colon with gaseous distention of the transverse colon and splenic flexure. No dilated small bowel loops. Signed by: Dr. Jessica Wade MD on 09/24/2019 10:11 AM Dictated By: JESSICA WADE MD 1011 COPY TO: MAURO SOLIS MD Fluoroscopic procedure less than one hour tlrnanyh1685-04-66 08:01:00* Test Item Value Reference Range Interpretation Comments Coronavirus (PCR) (test code = Coronavirus (PCR)) NOT DETECTED NOTD ETECTED SARS-COV-2 (COVID19), HIGHRISK, RT-PCRNegative results do not preclude SARS-CoV- 2 infection and should not be used as the sole basis for patient management deci sions. Negative results must be combined with clinical observations, patient his tory, and epidemiological information. Optimum specimen types and timing for pea k viral levels during infections caused by SARS-CoV-2 have not been determined. Collection of multiple specimens ot types of specimens may be necessary to detec t virus. Improper specimen collection and handling, sequence variability under p rimers/probes, or organism present below the limit of detection may lead to fals e negative results. Positive and negative predictive values of testing are highl y dependent on prevalance. False negative test results are more likely when prev alence is high.The expected result is negative (not detected).The SARS-CoV-2 lam t is intended for the qualitative detection of nucleic acid from SARS-CoV-2 in n asopharyngeal and oropharyngeal swab samples from patients who meet COVID-19 cli nical and or epidemiological criteria. For lower respiratory tract specimens, th e assay is submitted for authoriztion by FDA under an Emergency Use Authorizatio n (EUA). Testing methodology is real time RT-PCR. If received as separate collec tion devices, nasopharygeal and oropharyngeal specimens are combined for analysi s. Additional specimens may be split to a separate accession for analysi and rep orting as this test includes a single unit of service.Test results must be corre lated with clinical presentation and evaluated in the context of other laborator y and epidemiologic data. Test performance can be affected because the epidemiol ogy and clinical spectrum of infection caused by SARS-CoV-2 is not fully known. For example, the optimum types of specimens to collect and when during the cours e of infection these specimens are most likely to contain detectable viral RNA m ay not be known.This test has not been Food and Drug Administration (FDA) cleare d or approved and has been authorized by FDA under an Emergency Use Authorizatio n (EUA). The test is only authorized for the duration of the declaration that ci rcumstances exist justifying the authorization of emergency use of in vitro diag nostic tests for detection and/or diagnosis of SARS-CoV-2 under section 564(b) o f the Act, 21 U.S.C. section 360bbb-3(b)(1), unless the authorization is termina lauryn or revoked sooner. [facility] are certified under the C linical Laboratory Improvement Amendments of 1988 (CLIA), 42 U.S.C. section 263a , to perform high complexity tests.Testing performed by [facility] [address] [phone] Director: Clyde Araujo M.D.CLIA # [id number] [facility] CenterCT ABDOMEN/PELVIS [id number] 15:22:00 [place] [address] Patient Name: TRINITY FERNANDEZ MR #: [id number] : 1960 Age/Sex: 58/F Req #: [id number] Adm Physician: ANTELMO HEART MD Ordered by: MAURO SOLIS MD Report #: [id number] Location: MED/SURG3 Room/Bed: [facility] [place] Procedure: [id number] CT/CT ABDOMEN/PE LVIS WO Exam Date: 09/19/19 Exam Time: 1120 REPORT STATUS: Signed EXAM: CT Abdomen a nd Pelvis WITHOUT intravenous contrast INDICATION: Constipation COMP ARISON: KUB 09/11/2019, CT abdomen and pelvis of 09/02/2019 TECHNIQUE: Abdomen and pelvis were scanned utilizing a multidetector helical scanner from the rocky ng base to the pubic symphysis without administration of IV contrast. Coronal and sagittal reformations were obtained. IV CONTRAST: None ORAL CON TRAST: None COMPLICATIONS: None RADIATION DOSE: Total DL P: 246 mGy*cm Dose modulation, iterative reconstruction, and/or weight bas ed adjustment of the mA/kV was utilized to reduce the radiation dose to as low as reasonably achievable. FINDINGS: LOWER THORAX: Normal. HEPATO BILIARY: No focal liver lesion. Status post cholecystectomy. SPLEEN: No spl enomegaly. PANCREAS: No focal masses or ductal dilatation. ADRENALS: N o adrenal nodules. KIDNEYS/URETERS: No hydronephrosis, stones, or solid mass l esions. PELVIC ORGANS/BLADDER: Mildly distended bladder. PERITONEUM / RET ROPERITONEUM: No free air or fluid. LYMPH NODES: No lymphadenopathy. VESSELS : Mild scattered atherosclerotic calcifications of the nonaneurysmal abdominal aorta and major branches. GI TRACT: Diffusely increased stool volume throu ghout the entirety of the colon, most notably with numerous stool balls in the mildly redundant sigmoid colon. No abnormal bowel thickening. No bowel obstru ction. BONES AND SOFT TISSUES: No acute osseous injury. No suspicious lytic or blastic lesions. Postoperative findings of L3-S1 spinal fusion. 1.8 cm cys tic structure in the subcutaneous soft tissues of the anterior abdominal wall underlying a row of surgical skin shruthi. IMPRESSION: Findings consis tent with constipation/fecal impaction. No bowel obstruction. No free air or f ree fluid. The above findings were discussed with Dr. Solis on 09/19/2019 3:22 PM, who responded indicating that the communication was understood. Sign ed by: Maria Valle MD on 09/19/2019 3:27 PM Dictated By: MARIA VALLE MD El ectronically Signed By: MARIA VALLE MD on 09/19/19 1527 Transcribed By: JOVANY on 09/19/19 1527 COPY TO: MAURO SOLIS MD Serum or plasma total bilirubin measurement (mass/volume)2019-09-18 05:56:00* Test Item Value Reference Range Interpretation Comments Total Bilirubin (test code = 1975-2) 0.6 0.2-1.2 [facility]or[facility] less than one hour utfkifii4869-34-91 05:56:00* Test Item Value Reference Range Interpretation Comments Aspartate Amino Transf (AST/SGOT) (test code = Aspartate Amino Transf (AST/SGOT)) 26 5-34 [facility] or plasma alanine aminotransferase measurement (enzymatic activity/volume)2019-09-18 05:56:00* Test Item Value Reference Range Interpretation Comments Alanine Aminotransferase (ALT/SGPT) (test code = 1742-6) 23 0-55 [facility] or plasma protein measurement (mass/volume)2019-09-18 05:56:00* Test Item Value Reference Range Interpretation Comments Total Protein (test code = 2885-2) 5.9 6.5-8.1 [facility] or plasma albumin measurement (mass/volume)2019-09-18 05:56:00* Test Item Value Reference Range Interpretation Comments Albumin (test code = 1751-7) 3.3 3.5-5.0 [facility] HospitalPlasma globulin measurement (mass/volume) 2019-09-18 05:56:00* Test Item Value Reference Range Interpretation Comments Globulin (test code = 23526-1) 2.6 2.3-3.5 [facility] or plasma albumin/globulin mass svtjn8452-34-44 05:56:00* Test Item Value Reference Range Interpretation Comments Albumin/Globulin Ratio (test code = 1759-0) 1.3 0.8-2.0 [facility] or plasma alkaline phosphatase measurement (enzymatic activity/volume)2019-09-18 05:56:00* Test Item Value Reference Range Interpretation Comments Alkaline Phosphatase (test code = 6768-6) 66 40-150 [facility]rum or plasma cancer antigen 19-9 measurement (units/volume)2019-09-18 05:56:00* Test Item Value Reference Range Interpretation Comments CA 19-9 Antigen (test code = 65014-5) 25 0-35 [facility] Electrochemiluminescence Immunoassay(ECLIA)Values obtained wit h different assay methods or kits cannotbe used interchangeably. Results cannot be interpreted asabsolute evidence of the presence or absence of malignantdisea se.Performed at: [address] [id number] Director: Josey Vazquez MD, Phone: [phone] [facility] CenterCHEST XRAY LINE QMUQNDVQT2647-20-62 15:24:00 [facility] [address] [place] [address] Patient Name: TRINITY FERNANDEZ MR #: [id number] : 1960 Age/Sex: 58/F Req #: [id number] Adm Physician: ANTELMO HEART MD Ordered by: MIRTA HART MD Report #: [id number] Location: MED/SURG3 Room/Bed: [facility] [place] Procedure: [id number] DX/CHEST XRAY LI NE PLACEMENT Exam Date: 09/13/19 Exam Time: 1510 REPORT STATUS: Signed TECHNIQUE: Fr ontal view of the chest. INDICATION: 58-year-old woman after PICC placement . COMPARISON: None. FINDINGS: LINES/TUBES: Right upper extremi ty PICC terminates over the expected region of the low superior vena cava. LUNGS: The lungs are well inflated. No consolidation or pulmonary edema. PLEURA: No pneumothorax or significant pleural effusion. HEART AND MEDIASTI NUM: The cardiomediastinal silhouette is within normal limits. Tortuous thorac ic aorta. SOFT TISSUES AND BONES: Intact median sternotomy wires. Soft tiss ues are unremarkable. IMPRESSION: Lines/tubes as above. No acut e cardiopulmonary abnormalities. 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 FINDINGS: Portable, supine image obtained at 0615 hours. Medical Alea shelia: Fusion hardware in the lumbar spine is intact. Cholecystectomy clips and surgical clips in the left hemiabdomen and right lower quadrant are stable. Bowel: Unremarkable bowel gas pattern. Large stool burden throughout the colo n. The amount of stool in the right colon is diminishing. No dilated small bow el loops are pneumatosis. Free air: None Abdominal calcifications: None over the renal shadows or along the expected course of the ureters. Organomegaly: None Bones: Stable postoperative changes from laminectomy fro m L3 to S1. IMPRESSION: Large stool burden, with diminishing amount of stool in the right colon. No evidence of bowel obstruction. Signed by: Melchor Wade MD on 09/11/2019 7:14 AM Dictated By: JESSICA GARCIA MD 3 Transcri bed By: JOVANY on 09/11/19713 COPY TO: MAURO SOLIS MD ABDOMEN-1VIEW (KUB)2019-09-09 14:44:00 [place] [address] Patient Name: TRINITY FERNANDEZ MR #: [id number] : 1960 Age/Sex: 58/F Req #: [id number] Adm Physician: ANTELMO HEART MD Ordered by: MAURO SOLIS MD Report #: [id number] Location: MED/SURG3 Room/Bed: [facility] [place] Procedure: [id number] DX/ABDOMEN-1VIEW ([facility]) Exam Date: 09/09/19 Exam Time: 1422 REPORT STATUS: Signed EXAM: ABDOMEN-1VIE W ([facility]) DATE: 09/09/2019 2:22 PM INDICATION: Abdominal distention. COMPARISON: CT abdomen/pelvis from 09/02/2019. [facility] 09-07-2019. FINDINGS/IMPR ESSION: Nonobstructive bowel gas pattern. No evidence of pneumoperitoneum. Abundant stool throughout the colon and rectum which may represent constipat ion. No evidence of nephrolithiasis. Surgical clips overlie the right upper and lower quadrants. Multiple overlying shruthi are again noted. There are po stsurgical changes from instrumented lumbar fusion from L3 through S1. No evid ence of acute osseous abnormality. Signed by: Dr. Navdeep Rosas MD on 0 2:46 PM Dictated By: NAVDEEP ROSAS MD 45 Transcribed By: JOVANY on 09/09/19 1446 COPY TO: MAURO SOLIS MD ABDOMEN 2 [id number] 11:05:00 [place] [address] Patient Name: TRINITY FERNANDEZ MR #: [id number] : 1960 Age/Sex: 58/F Req #: [id number] Adm Physician: ANTELMO HEART MD Ordered by: MAURO FAUSTIN MD Report #: [id number] Location: MED/SURG3 Room/Bed: [facility] [place] Procedure: [id number] DX/ABDOMEN 2 EW Exam Date: 09/07/19 Exam Time: 1040 REPORT STATUS: Signed EXAM: ABDOMEN 2 VIEW DATE: 09/07/2019 10:40 AM INDICATION: Constipation COMPARISON: C T abdomen/pelvis from 09/02/2019 FINDINGS/IMPRESSION: Bowel gas pattern ap pears nonspecific but nonobstructive. Moderate to large volume of colonic stoo l burden noted which may reflect constipation. No abnormal intra-abdominal calcification is appreciated. Cholecystectomy clips noted within the right up per quadrant. Additional surgical clips noted projecting over the right lower quadrant. Multiple overlying skin shruthi noted, recommend correlation with op erative report. There are postsurgical changes from instrumented lumbar fusion from L3 through S1. No acute osseous abnormality is identified. Signed b y: Dr. Luis E Lerma MD on 09/07/2019 11:09 AM Dictated By: LUIS E LERMA MD 08 Transcribed By: LUCRECIA ROSSI on 09/07/191108 COPY TO: MAURO FAUSTIN MD Blood platelets count by estimate (number/volume)2019-09-06 13:05:00* Test Item Value Reference Range Interpretation Comments Platelet Estimate (test code = 24829-9) ADEQUATE [facility] CenterPlatelet ybgbbbwbok5741-66-12 13:05:00* Test Item Value Reference Range Interpretation Comments Platelet Morphology Comment (test code = 25512-2) FEW GIANT [facility]Blood hypochromia detection by light qexoslpwyl6921-29-34 13:05:00* Test Item Value Reference Range Interpretation Comments Hypochromasia (test code = 728-6) SLIGHT [facility]Blood poikilocytosis detection by light ujtitvcpsu3511-74-55 13:05:00* Test Item Value Reference Range Interpretation Comments Poikilocytosis (test code = 779-9) [facility] an[facility]ocytosis detection by light wlqaxfiows0654-56-07 13:05:00* Test Item Value Reference Range Interpretation Comments Anisocytosis (test code = 702-1) [facility] HospitalRBC xnalmhfphx8957-79-76 13:05:00* Test Item Value Reference Range Interpretation Comments Red Cell Morphology Comment (test code = 6742-1) NORMAL [facility]CT [facility]/PELVIS [id number] 09:39:00 [facility] [address] [place] [address] Patient Name: TRINITY FERNANDEZ MR #: [id number] : 1960 Age/Sex: 58/F Req #: [id number] Adm Physician: ANTELMO HEART MD Ordered by: ANTELMO HEART MD Repor t #: [id number] Location: [facility] Room/Bed : [facility] [place] Procedure: [id number] CT/CT ABDOMEN/PE LVIS W Exam Date: 09/02/19 Exam Time: 824 REPORT STATUS: Signed EXAM: CT Abdomen an d Pelvis WITH contrast INDICATION: Abdominal wall hernia related pain. COMPARISON: None. TECHNIQUE: Abdomen and pelvis were scanned utilizing a mu ltidetector helical scanner from the lung base to the pubic symphysis after ad ministration of IV contrast. Coronal and sagittal reformations were obtained. Routine protocol was performed. Scan was performed during portal venous phase. IV CONTRAST: 100 cc of Isovue-370 ORAL CONTRAST: None COMPLICATIONS: None RADIATION DOSE: Total DLP: 387.4 mGy* cm Estimated effective dose: (DLP x 0.015 x size factor) mSv CTDIv ol has been reviewed. It is below the limits set by the Radiation Protocol Com mittee (RP). FINDINGS: Examination somewhat limited by streak artifact f rom spinal hardware. LINES and TUBES: None. LOWER THORAX: Mild depende nt subsegmental atelectasis. Coronary atherosclerosis and coronary stents. HEPATOBILIARY: No evidence of focal lesion. There is intra- and extra- hepatic biliary dilation likely post cholecystectomy reservoir effect. GALLBLA DDER: Status post cholecystectomy. SPLEEN: No splenomegaly. PANCREAS: No focal masses or ductal dilatation. ADRENALS: No adrenal nodules KIDNEYS/URETERS: Right renal cortical scarring. No evidence of hydronephrosis, solid mass or stone. GI TRACT: There are mildly dilated jejunal loops in the left upper quadrant, which measure up to 3.2 cm. There is a possible trans ition point in the jejunum on series 2, image 32. There is fecalization of jej unal loops (series 2, image 48), which may represent obstructive process versu s slow transit. No evidence of pneumatosis. The stomach is not dilated. The di stal small bowel loops are decompressed. There is stool within the colon. Krystin ined contrast within the colon. Colonic diverticulosis without evidence of div erticulitis. There are post surgical changes of appendectomy. Small hiatal her maria esther. PELVIC ORGANS/BLADDER: Status post hysterectomy. LYMPH NODES: No lymphadenopathy. VESSELS: Retroaortic left renal vein. Mild atherosclerotic calcifications of the abdominal aorta and branch vessels. PERITONEUM / R ETROPERITONEUM: No free air or fluid. BONES AND SOFT TISSUES: There may b e a tiny right ventral abdominal wall fat-containing hernia, better seen on sa gittal series 300, image 53, and axial image 30. There is mild associated stra nding. No acute osseous abnormality. Status post posterior decompression and fusion from L3 through S1. There are intervertebral spacers at L3-L4, L4-5, an d L5-S1. Surgical clips and inflammatory changes in the right inguinal region. CONCLUSION: Mildly dilated jejunal loops in the left upper quadrant may represent low-grade partial small bowel obstruction versus ileus. Possibl e tiny right ventral abdominal wall fat-containing hernia, best seen on sagitt al images with associated mild stranding suggestive of inflammation, suggest c linical correlation for reducibility and evaluate for incarceration. Signed by: Dr. Navdeep Rosas MD on 09/02/2019 9:59 AM Dictated By: NAVDEEP ROSAS MD 8 Transcribed By: VINCE Phillips on 09/02/19958 COPY TO: ANTELMO HEART MD Serum or plasma creatine kinase measurement (enzymatic activity/volume)2019-09-01 16:19:00* Test Item Value Reference Range Interpretation Comments Creatine Kinase (test code = 2157-6) 61 29-168 [facility] or plasma creatine kinase MB measurement (mass/volume)2019-09-01 16:19:00* Test Item Value Reference Range Interpretation Comments Creatine Kinase MB (test code = 07463-0) 1.70 0-5.0 [facility] HospitalTroponin I measurement by highly sensitive enzyme udaliuewbfz5765-35-57 16:19:00* Test Item Value Reference Range Interpretation Comments Troponin I (test code = 86564-8) < 0.001 0-0.300 [facility] HospitalFree thyroxine eowlb5151-39-88 05:45:00* Test Item Value Reference Range Interpretation Comments Free Thyroxine Index (test code = 72247-4) 0.9630 1.4-3.8 [facility]rum or plasma thyroxine (T4) measurement (mass/volume)2019-09-01 05:45:00* Test Item Value Reference Range Interpretation Comments Thyroxine (T4) (test code = 3026-2) 2.67 4.5-10.9 Our current method for Total T4 is not recommended for use as the only marker fo r evaluating patients for thyroid disorders.[facility]rum or plasma triiodothyronine resin uptake (T3RU)2019-09-01 05:45:00* Test Item Value Reference Range Interpretation Comments Triiodothyronine (T3) Uptake (test code = 3050-2) 36.07 22.5 -37.0 [facility] HospitalUrine color psthbfykoflzt9127-39-35 21:45:00* Test Item Value Reference Range Interpretation Comments Urine Color (test code = 5778-6) YELLOW YELLOW [facility] HospitalUrine qrcwisl5167-99-81 21:45:00* Test Item Value Reference Range Interpretation Comments Urine Clarity (test code = 57130-0) SL CLOUDY CLEAR [facility] Centerpecific gravity of Urine by Test strip 2019-08-31 21:45:00* Test Item Value Reference Range Interpretation Comments Urine Specific [place] (test code = 5811-5) 1.025 1.010-1.02 5 [facility] pH measurement by automated test bsdwa5088-59-52 21:45:00* Test Item Value Reference Range Interpretation Comments Urine pH (test code = 41420-3) 7.5 5-7 [facility] [place] [facility] leukocyte esterase detection by rwipcezj1044-50-73 21:45:00* Test Item Value Reference Range Interpretation Comments Urine Leukocyte Esterase (test code = 5799-2) TRACE NEGATIVE [facility] HospitalUrine nitrite eeqeechic1065-25-95 21:45:00* Test Item Value Reference Range Interpretation Comments Urine Nitrite (test code = 76222-4) NEGATIVE NEGATIVE [facility]Urine protein measurement by test strip (mass/volume)2019-08-31 21:45:00* Test Item Value Reference Range Interpretation Comments Urine Protein (test code = 5804-0) NEGATIVE NEGATIVE [facility]Urine glucose olwnxqmnu1679-11-21 21:45:00* Test Item Value Reference Range Interpretation Comments Urine Glucose (UA) (test code = 2349-9) 1+ NEGATIVE [facility] HospitalUrine ketones detection by automated test jevuf1943-68-02 21:45:00* Test Item Value Reference Range Interpretation Comments Urine Ketones (test code = 36382-9) NEGATIVE NEGATIVE [facility] HospitalUrine urobilinogen measurement by test strip (mass/volume)2019-08-31 21:45:00* Test Item Value Reference Range Interpretation Comments Urine Urobilinogen (test code = 92446-5) 0.2 0.2-1 [facility] [place] [facility] total bilirubin measurement (mass/volume)2019-08-31 21:45:00* Test Item Value Reference Range Interpretation Comments Urine Bilirubin (test code = 1978-6) NEGATIVE NEGATIVE [facility] HospitalU[facility] erythrocytes hkktftsjz0701-86-76 21:45:00* Test Item Value Reference Range Interpretation Comments Urine Blood (test code = 72800-8) NEGATIVE NEGATIVE [facility] HospitalAutomated urine sediment leukocyte count by microscopy (number/high power field)2019-08-31 21:45:00* Test Item Value Reference Range Interpretation Comments Urine WBC (test code = 5821-4) 0-5 0-5 [facility] [place] [facility] HospitalErythrocytes detection in urine sediment by light bphthztgec7821-28-61 21:45:00* Test Item Value Reference Range Interpretation Comments Urine RBC (test code = 66015-8) NONE 0-5 [facility] [place] [facility] HospitalBacteria detection in urine sediment by light txqgkppfvz6418-64-45 21:45:00* Test Item Value Reference Range Interpretation Comments Urine Bacteria (test code = 69428-9) FEW NONE [facility] HospitalEpithelial cells detection in urine sediment by light xlmkkqjxgt0145-78-98 21:45:00* Test Item Value Reference Range Interpretation Comments Urine Epithelial Cells (test code = 63000-9) MODERATE NONE [facility] HospitalCHEST SINGLE (PORTABLE)2019-08-31 13:16:00 [facility] [address] [place] [address] Patient Name: TRINITY FERNANDEZ MR #: [id number] : 1960 Age/Sex: 58/F Req #: [id number] Adm Physician: Ordered by: SAM HASTINGS MD Report #: [id number] Location: ER Room/Bed: Procedure: [id number] DX/CHEST SINGL E (PORTABLE) Exam Date: 08/31/19 Exam Time: 1150 REPORT STATUS: Signed EXAMINATION: CHEST SINGLE (PORTABLE) INDICATION: Chest pain COMPARISON: None FINDINGS: LINES/TUBES:EKG leads overlie the chest. LUNGS:The lungs are hyperinflated. No focal consolidation or pulmonary edema. PLEURA: No pleural effusion or pneumothorax. MEDIASTINUM:The cardiomediastinal silh ouette appears normal in size and shape. Postoperative findings of prior CABG. Coronary artery stents in place. BONES/SOFT TISSUES:No acute osseous injur y. ABDOMEN:No free air under the diaphragm. IMPRESSION: Hyperinf lated lungs. No focal pneumonia or pulmonary edema. Signed by: Maria Valle MD on 08/31/2019 1:18 PM Dictated By: MARIA VALLE MD [id number] Transcribed By: JOVANY on 08/31/198 COPY TO: SAM HASTINGS MD Prothrombin time (PT) in platelet poor plasma by coagulation cjguz5671-27-91 12:34:00* Test Item Value Reference Range Interpretation Comments Prothrombin Time (test code = 5902-2) 12.0 11.9-14.5 [facility] Plate[facility] plasma by Coagulation trdhv4059-57-49 12:34:00* Test Item Value Reference Range Interpretation Comments Prothromb Time International Ratio (test code = 6301-6) 0.84 Oral Anticoagulant Therapy INR Values:1. Low Intensity Therapy 1.5 - 2.02 . Moderate Intensity Therapy 2.0 - 3.03. High Intensity Therapy(1) 2.5 - 3. 54. High Intensity Therapy(2) 3.0 - 4.05. Panic Value INR > 5.0 [facility]Act[facility] partial thromboplastin time (aPTT) in platelet poor plasma by coagulation syoxn1737-79-95 12:34:00* Test Item Value Reference Range Interpretation Comments Activated Partial Thromboplast Time (test code = 47641-6) 28.3 23.8-35.5 [facility] triglyceride measurement (mass/volume)2019-08-31 12:34:00* Test Item Value Reference Range Interpretation Comments Triglycerides Level (test code = 2571-8) 114 0-149 [facility] plasma cholesterol measurement (mass/volume)2019-08-31 12:34:00* Test Item Value Reference Range Interpretation Comments Cholesterol Level (test code = 2093-3) 247 0-199 Less than 200 mg/dL Low Lfuw085 - 239 mg/dL Borderline Fghq119 m g/dl and greater High Risk [facility] cholesterol in LDL measurement (mass/volume) 2019-08-31 12:34:00* Test Item Value Reference Range Interpretation Comments LDL Cholesterol (test code = 2089-1) 160 60-130 [facility] plasma cholesterol in HDL measurement (mass/volume)2019-08-31 12:34:00* Test Item Value Reference Range Interpretation Comments HDL Cholesterol (test code = 2085-9) 64 40-60 [facility] or plasma total cholesterol/cholesterol in HDL mass vaaxa2950-16-89 12:34:00* Test Item Value Reference Range Interpretation Comments Cholesterol/HDL Ratio (test code = 9830-1) 3.9 3.0-3.6 [facility]oi4143[facility]77-28 12:34:00* Test Item Value Reference Range Interpretation Comments B-Type Natriuretic Peptide (test code = 59107-3) 35.1 0-100 [facility] or plasma lipase measurement (enzymatic activity/volume)2019-08-31 12:34:00* Test Item Value Reference Range Interpretation Comments Lipase (test code = 3040-3) 18 8-78 [facility] HTIWNHF9697-72-83 14:37:00* Test Item Value Reference Range Interpretation Comments CULTURE (BEAKER) (test code = 1095) <10,000 col/mL skin jack WBLU-GQU6306-01-02 09:28:00* Test Item Value Reference Range Interpretation Comments ACTIVATED CLOTTING TIME (BEAKER) (test code = 441) [address] [facility] [address] [facility] [address] CBC W/PLT COUNT & AUTO BUYOGLFYIVFA1543-03-88 04:56:00* Test Item Value Reference Range Interpretation [...] 0.01 K/ L 0. 00-0.20 0.00BASIC METABOLIC OETNB6938-25-40 04:43:00* Test Item Value Reference Range Interpretation [...] IS NOT APPLICABLE FOR DIALYSIS PATIENTS. PROTHROMBIN TIME/KLW1847-85-01 04:32:00* Test Item Value Reference Range Interpretation Comments PROTIME (BEAKER) (test code = 759) 12.3 seconds 11.7-14.7 INR (BEAKER) (test code = 370) 0.9 <=5.9 RECOMMENDED COUMADIN/WARFARIN INR THERAPY RANGESSTANDARD DOSE: 2.0 - 3.0 Inclu zach: PROPHYLAXIS for venous thrombosis, systemic embolization; TREATMENT for billie ous thrombosis and/or pulmonary embolus.HIGH RISK: Target INR is 2.5-3.5 for pat ients with mechanical heart valves.URINALYSIS W/ PBHAQZSUYPM6272-37-68 11:09:00 * Test Item Value Reference Range [...] Clean Catch CBC W/PLT COUNT & AUTO PPSTNZZMSFUX6676-17-69 09:48:00* Test Item Value Reference Range Interpretation [...] (test code = 1678) Present BASIC METABOLIC [id number] 07:53:00* Test Item Value Reference Range Interpretation [...] DIALYSIS PATIENTS. CBC W/PLT COUNT & AUTO WXEVQRMKJJNX2666-74-10 10:48:00* Test Item Value Reference Range Interpretation [...] (test code = 762) Normal BASIC METABOLIC PREAM1605-75-00 06:46:00* Test Item Value Reference Range Interpretation [...] DIALYSIS PATIENTS. CBC W/PLT COUNT & AUTO LZCWJSBXZDSS8747-31-71 09:29:00* Test Item Value Reference Range Interpretation [...] code = 480) 2+ moderate BASIC METABOLIC [id number] 08:39:00* Test Item Value Reference Range Interpretation [...] IS NOT APPLICABLE FOR DIALYSIS PATIENTS. T4, [id number] 15:06:00* Test Item Value Reference Range Interpretation Comments FREE T4 (BEAKER) (test code = 655) 1.26 ng/dL 0.70-1.48 TSH/FREE T4 IF QXXRRLGHJ5954-17-82 14:38:00* Test Item Value Reference Range Interpretation Comments THYROID STIMULATING HORMONE (BEAKER) (test code = 772) 0.22 uIU/mL 0.35-4.94 L [id number] 14:14:00* Test Item Value Reference Range Interpretation Comments LIPASE (BEAKER) (test code = 749) 11 U/L 8-78 UJVCUUP6801-93-66 14:14:00* Test Item Value Reference Range Interpretation Comments AMYLASE (BEAKER) (test code = 349) 43 U/L 25-125 HEPATIC FUNCTION [id number] 14:14:00* Test Item Value Reference Range Interpretation [...] code = 347) 30 U/L 6-55 TROPONIN [id number] 07:12:00* Test Item Value Reference Range Interpretation Comments TROPONIN I (VANESA) (test code = 397) 0.01 ng/mL 0.00-0.03 [...] acute neurological disease, and pers istent tachyarrhythmia.TROPONIN [id number] 01:13:00* Test Item Value Reference Range Interpretation [...] neurological disease, and pers istent tachyarrhythmia.BASIC METABOLIC [id number] 18:25:00* Test Item Value Reference Range Interpretation [...] ESTIMATED GFR. CREATINE KINASE (CK), TOTAL AND [id number] 18:22:00* Test Item Value Reference Range Interpretation Comments CREATINE KINASE TOTAL (BEAKER) (test code = 380) 95 U/L 29-20 0 CREATINE KINASE-MB (BEAKER) (test code = 750) 1.7 ng/mL 0.0-6.6 CREATINE KINASE-MB INDEX (BEAKER) (test code = 395) 1.8 % Effective 02/20/2014: CK-MB Reference Range ChangeNew: 0.0-6.6 Previous: 0.0- 4.9CK-MB Reference Range:<6.7 Normal6.7-10.0 Borderline>10.0 Abnormal TROPONIN [id number] 18:22:00* Test Item Value Reference Range Interpretation [...] (test code = 700) 27 pg/mL 0-100 PT/NWQB0889-07-37 18:05:00* Test Item Value Reference Range Interpretation [...] mechanical heart valves.CBC W/PLT COUNT & AUTO NBZPDAGGJPSE1053-87-77 18:00:00* Test Item Value Reference Range Interpretation [...] 417) 0.13 K/ L 0. 00-0.20 0.00CARDIAC GRVASKA9536-84-18 17:27:0063[facility] ENZYMES 2016-04-12 17:27:00<0.02[facility]CARD[facility]AC OBMIPTM6145-69-43 06:58:0027 [facility] IQSOFMH1381-09-77 06:58:00<0.02[facility]AC PWMHMOO2415-97-19 06:58:000.7[facility] MMEKBAI1508-35-72 06:58:00 87[facility]annCARD[facility]AC WQYZJCL8909-75-46 06:58:000.8[facility]annCHEM ATGZA5624-75-14 06:58:22885Ouscjliv HermannCHEM BZUVJ6720-73-05 06:58:0099 [facility]annCHE[facility] YGPRU3986-83-85 06:58:000.69[facility]annCHEM PANEL 2016-04-12 06:58:94287Ilzrxgkx HermannCHEM LVTNA9690-61-82 06:58:0096[facility]annCHE[facility] UIWNN6861-81-15 06:58:0022[facility]annCHEM UMNXD9766-94-03 06:58:95263Arudydgf HermannCHEM FRXGG7310-44-75 06:58:0087[facility]annCHEM GYMFZ1115-53-29 06:58:004.3[facility]annCHEM DQSXK7069-75-91 06:58:0021 [facility]annCHE[facility] YGVYI3829-90-70 06:58:000.4[facility]annCHEM PANEL 2016-04-12 06:58:0022[facility]annCHEM SGYHK8823-41-08 06:58:008.8[facility]annCHEM DZTKT0770-96-21 06:58:006.6[facility]annCHEM FIOCK3017-55-75 06:58:0032[facility]annCHEM GKEOA4394-65-83 06:58:0012.3[facility]annCHEM GTHOT5159-31-35 06:58:003.4[facility]annCHE[facility] QTJUE7348-56-41 06:58:000.9 [facility]annCHE[facility] LIFSK4373-86-39 06:58:003.2[facility]annCHEM PANEL 2016-04-12 06:58:0024[facility] KgsklfeYKWRNNTOZW2160-40-49 06:58:00* Test Item Value Reference Range Interpretation Comments PT (test code = PT) 12.1 s 12.0-14.7 [facility] EpqinluPFEWOHMUSW6524-81-26 06:58:000.88[facility]annHEMATOLOGY 2016-04-12 06:58:00* Test Item Value Reference Range Interpretation Comments PTT (test code = PTT) 25.1 s 22.9-35.8 [facility] ZfzeoufXQQRWMKHHE0672-26-72 06:35:36358Lsubqesh HermannHEMATOLOGY 2016-04-12 06:35:008.0[facility] NtjcglnSSYGZBWCJI2848-55-05 06:35:0034.0[facility] TmzvpsrOHDAHULEED4484-35-09 06:35:0014.9[facility] BgcxvehPJONYXYYRR1349-18-68 06:35:00* Test Item Value Reference Range Interpretation Comments MCH (test code = MCH) 31.9 pg 27.0-31.0 [facility] IofkcfgLJYEUFJBTS7107-12-39 06:35:0036.7[facility]annHEMATOLOGY 2016-04-12 06:35:0093.8[facility] VjmoffjKHEXMBDARF8229-48-82 06:35:008.8[facility] RhkhfgkITAOBREBRJ9652-79-85 06:35:0012.5[facility] FaceiqbEXJLNWBJKH0606-49-95 06:35:003.92[facility] WalaheaRBGCYOLOWO1868-03-92 06:35:004.7[facility] PUQNYPBNAS6803-06-68 06:35:000.6[facility] TgzzjahSHNLLEKZUW2238-41-82 06:35:000.3 [facility] VsjydcjTRZMFTRMJR2647-81-81 06:35:000.2[facility]annHEMATOLOGY 2016-04-12 06:35:0034.8[facility] PonqciuTDSUIZVXRA2212-97-01 06:35:003.1[facility] MrypzqdUHPFGQQFTA9432-96-46 06:35:006.9[facility] ScswecxGUUNFLYBSX3970-08-68 06:35:001.7[facility] MhibzmvFXOEYRZQPM3188-34-13 06:35:0053.2[facility] HPJOCCMBJA3842-61-65 06:35:003.4[facility]annDRUG EZGJTV1365-11-80 06:13:00 See Note (04/12/16 12:13 AM)[facility]annDRUG CQRYVV7991-05-95 06:13:00Negative *NA*(04/12/16 12:13 AM)[facility]annDR[facility] OVJQLK2138-15-24 06:13:00Negative *NA*(04/12/16 12:13 AM)[facility]annDR[facility] VRMZIZ1345-21-01 06:13:00Negative *NA*(04/12/16 12:13 AM)[facility]annDR[facility] UPZGFN4893-94-13 06:13:00Positive *ABN*(04/12/16 12:13 AM)[facility]annDR[facility] LNGETC1888-63-91 06:13:00Positive *ABN*(04/12/16 12:13 AM)[facility]annDR[facility] YCYDWW5754-57-52 06:13:00Negative *NA*(04/12/16 12:13 AM)[facility]annDR[facility] HFCYCK7747-82-24 06:13:00Negative *NA*(04/12/16 12:13 AM)[facility]annUR[facility] AND NWERT1526-85-56 06:13:00Negative *NA*(04/12/16 12:13 AM)[facility] AND CPMEL4543-88-97 06:13:00Negative (04/12/16 12:13 AM)[facility] AND POMGO3611-27-34 06:13:00Negative (04/12/16 12:13 AM)[facility] AND SHPGC5816-43-34 06:13:004[facility] AND FKHPD2808-80-64 06:13:00Trace *ABN*(04/12/16 12:13 AM)[facility] AND YVPVV7180-37-31 06:13:002[facility] AND STOOL 2016-04-12 06:13:006.0[facility] AND GZTJG3993-72-99 06:13:001.020 [facility] AND FKJXL3837-72-35 06:13:00Clear (04/12/16 12:13 AM) [facility]annCARDIAC PJBWIUB3520-16-04 10:52:0089[facility]annCARDIAC DQFAIEO0985-23-41 10:52:00<0.02[facility]annCARDIAC KJKTPTS2080-15-84 10:52:001.5[facility]annCARDIAC MUKKOPL5706-36-97 10:52:001.3[facility] CHEM GDRKA9079-68-90 10:52:0099[facility] HermannCHEM QJHOD2412-30-95 10:52:0012 [facility]annCHEM FFVGK1539-48-87 10:52:000.7[facility] HermannCHEM PANEL 2014-12-08 10:52:66336Qsqbqzfi HermannCHEM BWVXU1695-36-03 10:52:26119Mndwksli HermannCHEM WXAXH5773-99-55 10:52:004.0[facility]annCHEM OXFNB3422-15-15 10:52:0021[facility] HermannCHEM NIYLZ8767-25-19 10:52:33023Heqgomvp HermannCHEM ZASBD0671-10-67 10:52:008.7[facility]annCHEM BQFBP5964-89-83 10:52:0013.0 [facility] IhpqfuuWSDWIIGGVH4462-60-17 10:52:16949Qellzsmy HermannHEMATOLOGY 2014-12-08 10:52:0016.5[facility] EhaojooRQQASNCKSY2998-52-50 10:52:007.9[facility] MlfvaitTVIKHXQVCS7283-30-57 10:52:0038.0[facility] GeyzkphDSZELILWUZ1991-62-93 10:52:0082.9[facility] UgogyxcUUEMDROQWE2605-47-64 10:52:00* Test Item Value Reference Range Interpretation Comments MCH (test code = MCH) 27.0 pg 27.0-31.0 [facility] OsdxusfQRGHVOFHBP0782-63-91 10:52:0032.6[facility] HermannHEMATOLOGY 2014-12-08 10:52:006.0[facility] JkgyozsWWFHLZUZBG9981-92-02 10:52:004.59[facility] DltrwpjGVYSMPKDWQ4499-76-60 10:52:0012.4[facility] XgfaqmvDPYSEOKMBW8938-43-17 10:52:002.5[facility] UyflxyzMIICYTHPFY2500-32-86 10:52:002.5[facility] GMVLBORXAG1058-25-57 10:52:000.3[facility] McibrcqAKIBNHKDMI6234-79-77 10:52:000.6 [facility] RnwpnxxJJOMVNOHTE6139-95-97 10:52:000.1[facility] HermannHEMATOLOGY 2014-12-08 10:52:0042.1[facility] AyslezkXUYQDGQCYG9366-20-28 10:52:0010.5[facility] LlznsmuLWFNPFYFWD1546-55-43 10:52:001.1[facility] MswrephOJUESUWFMS7440-08-61 10:52:004.2[facility] DbnfnnbKGXVYXZCSR2158-28-20 10:52:0042.1[facility] FQOHMK0323-69-54 10:52:0031[facility] CxhqbymAEOUBM5973-62-06 10:52:34217Mxvwdkhx WovnzefWWAKYB0410-24-20 10:52:0043[facility] JyeftmyCCWASU5771-85-32 10:52:63698 [facility] SavlmonTLDWCK4697-07-83 10:52:19205Rnuszvaq EdrqhpxGTWIAP3540-61-34 10:52:006.70[facility]annCARDIAC IDWTHWX6738-80-53 02:43:00<0.02[facility]annCHEM VJQAW8546-66-06 02:43:0064[facility]annCARDIAC YJHSFFW9739-81-14 01:57:258[facility]annCARDIAC SCTTOPB1758-15-70 22:48:00<0.02[facility] CARDIAC SBUPNNO2947-86-73 22:48:000.9[facility]annCARDIAC AXNJAPB9777-34-22 22:48:001.1[facility]annCARDIAC VQAYOPQ7189-34-34 22:48:63023Hqyrdptu Temo CHEM EYINB3955-54-23 22:48:003.6[facility] HermannCHEM UFSTT1818-26-19 22:48:0064 [facility]annCHEM LNUTB6901-34-23 22:48:001.0[facility] HermannCHEM PANEL 2014-12-07 22:48:009.4[facility] HermannCHEM YHZPT4379-98-80 22:48:000.9[facility]annCHEM KDUPT8699-09-60 22:48:004.1[facility] HermannCHEM MENCJ8495-96-16 22:48:007.7[facility] HermannCHEM EVTEE4175-94-49 22:48:000.5[facility]annCHEM UNKGF1186-93-10 22:48:97232Xvkyhziy HermannCHEM CYWHW0361-96-51 22:48:004.1 [facility]annCHEM ASNWQ2934-10-18 22:48:92104Rstzuzta HermannCHEM PANEL 2014-12-07 22:48:0031[facility] HermannCHEM UFTMD5310-70-25 22:48:0055[facility] HermannCHEM ZELLE7505-10-14 22:48:0014[facility] HermannCHEM GCVJE2107-80-32 22:48:0014[facility] HermannCHEM ENDOP1401-89-12 22:48:0097[facility]annCHEM HNPFS3241-35-73 22:48:0012.1[facility] HermannCHEM WLTAV7911-40-23 22:48:0025 [facility]annCHEM PZJJG2934-15-79 22:48:55773Dkrmdblq HermannHEMATOLOGY 2014-12-07 22:48:00* Test Item Value Reference Range Interpretation Comments PTT (test code = PTT) 29.0 s 22.9-35.8 [facility] OigsifpZXJOSNEORN7765-70-97 22:48:00* Test Item Value Reference Range Interpretation Comments PT (test code = PT) 13.5 s 12.0-14.7 [facility] OipdxelTFGHTZNLVD3712-36-96 22:48:001.00[facility]annHEMATOLOGY 2014-12-07 22:48:003.1[facility] BpherdpDPQRZIZKCY7360-99-36 22:48:000.1[facility] NfwwnljTUDLTZHGVQ3466-37-45 22:48:000.6[facility] XnacsgsMLNZZXLSVW7452-63-00 22:48:002.7[facility] ZigvzdjZJBYEBCOHG9618-53-90 22:48:000.6[facility] RDZQAFXHLN8585-78-88 22:48:009.1[facility] HfbslpwZXPUDKAAOX0193-31-28 22:48:002.2 [facility] SwojdbaODZXVGCGVG6814-27-60 22:48:0041.1[facility]annHEMATOLOGY 2014-12-07 22:48:0047.0[facility] AnkardqULYFRCLTXW0918-06-96 22:48:008.0[facility] OmorgkpNVGKCWUDPJ2013-01-95 22:48:0032.5[facility] BxoqfnqONARQDONRU9410-86-36 22:48:0016.5[facility] TwrslvyYGWMJTRCOI1027-49-63 22:48:41935Ajmciqpz Temo HJQHSJUFCX2957-71-82 22:48:0038.9[facility] PfkmyjkBKWZAOIKKE9111-11-63 22:48:00 82.8[facility] BhuadcrRVYFZRLEIG6450-69-71 22:48:00* Test Item Value Reference Range Interpretation Comments MCH (test code = MCH) 26.9 pg 27.0-31.0 [facility] GcomhglMBIMJYXRWD8487-59-26 22:48:006.6[facility]annHEMATOLOGY 2014-12-07 22:48:004.70[facility] LsadivvVIXEOEBGKZ1837-22-66 22:48:0012.6[facility] UabzekaQGOQRRWQHMSJ4226-68-37 10:15:0013.1[facility] HermannELECTROLYTES 2014-11-30 10:15:79803Bpunzwom OrkgfnmWGMQLHKWNHXO0009-73-58 10:15:0018[facility] JktbvboWMQJPSGJAEKV2776-75-76 10:15:0024[facility] OxksbtjIQTVSABJSHPK0929-11-17 10:15:71435Fpozluhx UpdvzlbWKNFUZQPQDHI0159-12-87 10:15:38061Gdhnegmq [facility] DFGRFEICZYAG6692-09-90 10:15:004.1[facility] FfkepoqTQIKGBGDOHHM2961-14-69 10:15:0073[facility] NxfamgdLEXTGWKWUHYV3023-48-85 10:15:000.9[facility] EWXYBQBVYELU2379-86-58 10:15:008.6[facility] BoxsliyETSLPMJUZY7261-97-33 10:15:00 0.3[facility] IaoiuprLPTDNQSFDZ6298-64-46 10:15:000.4[facility] HermannHEMATOLOGY 2014-11-30 10:15:002.9[facility] VssgzmmYZHWYHRSZF5606-71-34 10:15:000.6[facility] FtdocysDOTCKMIGTR5820-76-15 10:15:005.0[facility] RpfflsyFIKWTAXASE7762-28-77 10:15:002.0[facility] ZhkdwyiWVBSIFQYRG3820-37-33 10:15:0032.0[facility] EMVCNFPWYA9850-01-99 10:15:0046.7[facility] IakwrkrEDCCTRAPNZ2948-26-81 10:15:00 10.2[facility] DcioyixUXKXHTTKNQ7480-76-92 10:15:006.1[facility]annHEMATOLOGY 2014-11-30 10:15:008.0[facility] HsyeoiiWIUWIPFCTR4375-72-21 10:15:0016.1[facility] XdumzykNYAALOBJJS6735-73-67 10:15:90839Ablayijq GomtoxyINDXPLCMRN9601-17-02 10:15:00* Test Item Value Reference Range Interpretation Comments MCH (test code = MCH) 28.3 pg 27.0-31.0 [facility] PubrvrhVWVMOAYIII6798-25-59 10:15:0033.8[facility] HermannHEMATOLOGY 2014-11-30 10:15:0083.7[facility] JsvdbtjIRREUFFFMR7077-29-47 10:15:0033.9[facility] IyxgyirIMCCOUINGE4116-10-07 10:15:004.05[facility] BqbsalsPPLSPQKIRK7182-78-65 10:15:0011.5[facility] DjpmgnjYVXWSGOCZX7992-90-72 10:15:006.1[facility] HermannCHEM MSYLG1997-40-57 09:33:0073[facility] HermannCHEM JPTCE7268-75-53 09:33:0013 [facility]annCHEM QQFBN9653-95-47 09:33:0026[facility] HermannCHEM PANEL 2014-11-28 09:33:000.9[facility] HermannCHEM PTQZY0332-96-04 09:33:31677Wpmdbyuf HermannCHEM FOHTQ6237-30-69 09:33:008.8[facility] HermannCHEM RTGED3412-00-93 09:33:69900Ixjikazo HermannCHEM UPGPD9090-86-88 09:33:003.7[facility] HermannCHEM LEJTY7634-55-39 09:33:31903Kogqoohq HermannCHEM FSKFI1366-93-53 09:33:0014.7 [facility]annCHEM KBDUO3392-55-30 09:33:000.3[facility] HermannCHEM PANEL 2014-11-28 09:33:000.4[facility] HermannCHEM EKMIY4776-77-09 09:33:000.1[facility] HermannCHEM OJIDX5106-57-87 09:33:0026[facility]annCHEM FQFPB0539-03-44 09:33:30931Lutskvme HermannCHEM WOPPH7040-01-92 09:33:003.0[facility] HermannCHEM LOWOS4918-70-53 09:33:001.0[facility] HermannCHEM OALIR5026-18-15 09:33:005.9 [facility]annCHEM EEMEP8018-91-61 09:33:002.9[facility]annCHEM PANEL 2014-11-28 09:33:0049[facility] ZqlelhlUALECTEUEI0788-31-94 09:33:007.7[facility] GkinduxLSXMBQFYYY3574-68-11 09:33:0036.5[facility] HlepfphQUMYDRSQBR9551-00-45 09:33:0012.5[facility] HvvjacqPUOHSOJIAL8740-20-11 09:33:004.47[facility] LDLLHZWNZF1590-53-37 09:33:68814Wqzkbose ParvadjPQAHPGGVWW8523-35-56 09:33:00 16.0[facility] WltbnqrMDBHELMUBN7463-54-40 09:33:0034.3[facility]annHEMATOLOGY 2014-11-28 09:33:00* Test Item Value Reference Range Interpretation Comments MCH (test code = MCH) 28.0 pg 27.0-31.0 [facility] KjepcwmSHRLTDSSAQ1165-37-08 09:33:0081.7[facility]annHEMATOLOGY 2014-11-28 09:33:005.9[facility] PgnvfsyJVKDOVETFG9734-89-03 09:33:0010.2[facility] CesjdcvZQNECJWUMQ3478-96-85 09:33:0036.4[facility] WpmpbvvDQFBAERUES8607-64-41 09:33:0045.5[facility] AzesmzjAGHQTFCIAX6817-22-15 09:33:000.1[facility] CDBUCKDPAB2444-30-14 09:33:000.3[facility] NzisbovGFGSVFGNUO7922-01-67 09:33:000.6 [facility] JdirgvpLQUSVFVWUC4622-48-95 09:33:002.2[facility]annHEMATOLOGY 2014-11-28 09:33:002.7[facility] TzpnjloRHLLLBJVOP5667-32-65 09:33:002.5[facility] XkvnemgVPYSDMFLWF0650-72-98 09:33:005.4[facility] HermannCHEM XQMNC9448-43-40 08:31:90416Jvannrir LbrbtuoKLDIIAMICVIQ1251-66-56 08:31:11843Dhsessel [facility] CJDOZUMYXKEX2947-93-83 08:31:003.5[facility] IszvchkCTELICJYBQQU7157-90-33 08:31:36332Hvkypbji IjeubabLHVPOEBNWBJF1986-37-42 08:31:0084[facility] XNAFHQEYZXZD0286-13-02 08:31:003.1[facility] GtfcjdcLICXRQEUKIBV8614-03-61 08:31:47297Wzrclzsk RdutwdzAEPQSUMHIVMW6557-83-18 08:31:000.5[facility] EQBAOVZYYSKJ8215-67-00 08:31:0095[facility] RjrixjoYDJDKEJUNDLV4087-21-27 08:31:00 63[facility] KndebylHSGOWARSKSBK1996-15-68 08:31:0089[facility] HermannELECTROLYTES 2014-11-25 08:31:009[facility] IzsagzwPQEBEBJPRBPK0566-21-22 08:31:000.8[facility] HnlqflqBZIKWLJABAQE5535-78-46 08:31:006.6[facility] MgdxvnjFHCOYDSLMWJI0610-25-23 08:31:0021[facility] GhprgdgOKMIXMBXBIZY9383-43-00 08:31:008.4[facility] LNEZBIPVVAZP2843-56-81 08:31:000.9[facility] IfraoqeGNROLNXRIJPI1132-53-59 08:31:0013.5[facility] FdgonpvMOZKFZQJBPPQ4606-80-21 08:31:0011[facility] YSMZLPUHVTHY6983-47-27 08:31:003.5[facility] RljkdyvLKXALRHFUS7270-23-58 08:31:00 5.9[facility] TupoowmOTUKYVXURB2234-37-56 08:31:0082.2[facility] HermannHEMATOLOGY 2014-11-25 08:31:004.42[facility] TbyzgtmKWSGKBIIJZ0930-68-84 08:31:0036.3[facility] PbifilxXOLGVPJKUO4149-58-31 08:31:0012.3[facility] ObwzizfBZBWUOKOIP8966-20-55 08:31:007.9[facility] UijrtlbIOJMNIKWLC4195-50-27 08:31:0033.8[facility] CLIVHKMKGX9102-00-23 08:31:00* Test Item Value Reference Range Interpretation Comments MCH (test code = MCH) 27.8 pg 27.0-31.0 [facility] NznlbqhQHQNFRPFMD1987-38-37 08:31:93538Kblrwgio HermannHEMATOLOGY 2014-11-25 08:31:0016.0[facility] GktmnnpFZZMODXPUB8725-08-17 08:31:003.1[facility] ZoknbduEHBRAOWEKP3759-57-31 08:31:001.9[facility] JpaikcaEMWEDJYODB3298-65-69 08:31:000.3[facility] VtecyekGMGDMREYEC8867-05-24 08:31:000.1[facility] VGCICLNPMH9712-47-04 08:31:000.4[facility] CcopsojEYXNAQMOHV3879-39-44 08:31:007.1 [facility] YzgscfvNHNNWKWCZB8575-54-59 08:31:0053.4[facility] HermannHEMATOLOGY 2014-11-25 08:31:002.1[facility] KisjtojHKUOWMTBKD8948-30-91 08:31:004.6[facility] CkkbpprEFLWNESAYV6400-43-28 08:31:0032.8[facility] HermannCHEM HYRIV3280-25-18 00:47:001.9[facility] HermannCHEM EVEXK5829-60-42 00:47:0050[facility] HermannCHEM NIXAM8237-10-80 00:47:26991Xwukflbm HermannCHEM USJEJ8497-52-89 00:47:003.4 [facility]annCHEM TQYCR9117-88-63 00:47:0012[facility] HermannCHEM PANEL 2014-11-25 00:47:000.9[facility] HermannCHEM UZYAX1605-47-04 00:47:000.6[facility] HermannCHEM HVUQY7983-83-89 00:47:50804Bfegyeaq HermannCHEM XFIJG7569-77-46 00:47:0083[facility] HermannCHEM INNON0443-79-93 00:47:003.2[facility] HermannCHEM NYBMV9392-36-56 00:47:15567Yuouzefq HermannCHEM SDSKD9592-90-12 00:47:006.6 [facility]annURINE AND SWYJN4850-65-96 04:47:001[facility]annURINE AND TURJX1739-03-37 04:47:00Clear (11/23/14 11:47 PM)[facility] AND STOOL 2014 04:47:001.023[facility]annUR[facility] AND SLJBM1872-32-63 04:47:00Yellow *NA*(11/23/14 11:47 PM)[facility] AND SZQTF5469-36-99 04:47:00 Negative *NA*(11/23/14 11:47 PM)[facility] AND YVLCE4684-67-84 04:47:005.0[facility]annURINE AND BVIOQ4828-70-90 04:47:0012[facility] URINE AND EXINX4386-42-52 04:47:00Trace *ABN*(11/23/14 11:47 PM)[facility] URINE AND VFXOZ9760-20-61 04:47:00Negative (11/23/14 11:47 PM)[facility] URINE AND MVGIJ7420-45-87 04:47:00Negative (11/23/14 11:47 PM)[facility] CARDIAC QQYRTQQ8454-94-78 01:15:001.0[facility] HermannCARDIAC SNRXCIZ4472-13-08 01:15:000.8[facility] HermannCARDIAC MDTBBKS8656-84-54 01:15:0081[facility] CARDIAC CHNKKVF1838-08-88 01:15:00<0.02[facility] HermannCHEM BVPQH2415-93-59 01:15:001.0[facility] HermannCHEM RABPN0458-58-92 01:15:82280Kodrnuco HermannCHEM DAAKS8591-69-09 01:15:0086[facility] XiavjkdNGFIFYLJOX0600-46-24 20:06:000.91 [facility] MsjnydwGCUCTNOPUR2281-20-62 20:06:00* Test Item Value Reference Range Interpretation Comments PT (test code = PT) 12.2 s 12.0-14.7 [facility] BnwmttxXZXCXQYZQU0269-05-84 20:06:00* Test Item Value Reference Range Interpretation Comments PTT (test code = PTT) 29.7 s 22.9-35.8 [facility]annCARDIAC QCEACBF6019-79-36 19:19:009[facility] HermannCARDIAC BOXSRHP5073-88-07 19:19:00<0.02[facility] HermannCARDIAC TILYOTC9991-76-50 19:19:0077[facility]annCARDIAC TEAQLNT1615-23-93 19:19:000.9[facility] CARDIAC KMGEVZY2404-78-94 19:19:001.2[facility] HermannCHEM UBQNN4755-53-29 19:19:001.7[facility] HermannCHEM EOOBD6728-64-71 19:19:0019[facility] CARDIAC JZDQQWH0009-77-55 15:02:0067[facility] HermannCARDIAC JAYNWQD9208-89-54 15:02:00<0.02[facility]annCARDIAC UNOMZJB8574-63-33 10:33:0062[facility] HermannCARDIAC KUACKHU7373-99-49 10:33:00<0.02[facility] QdwgxypAPICLT2123-99-89 10:33:0029[facility] AbekwepRHUWBI4735-11-43 10:33:55883Vnlrlbrd HermannLIPIDS 2014-09-18 10:33:87648Eilncprh KbckesfJMOFHW0836-68-90 10:33:003.86[facility] TixtmthWXQXEQ8557-41-55 10:33:12048Yldcbsbm NlgiyrcBJKOCS4095-85-90 10:33:0059 [facility]CARDIAC JQXLWOG2082-67-17 04:21:00<0.02[facility]CARD[facility]AC VGCHMTW4470-82-51 04:21:0059[facility]annCHEM NFLJN3615-14-77 04:21:0085 [facility]annCHE[facility] YMWZS6768-13-55 04:21:000.8[facility]annCHEM PANEL 2014-09-18 04:21:003.6[facility]annCHEM PDYBM6065-32-39 04:21:30367Exjtvqrn HermannCHEM STPUD9865-72-81 04:21:76783Itubmdos HermannCHEM JDEFS3031-84-55 04:21:008.6[facility]annCHEM ZZGWT2588-31-73 04:21:0019[facility]annCHEM FVNIR5897-52-69 04:21:0027[facility]annCHEM PCFUP4980-30-93 04:21:0025 [facility]annCHE[facility] LGKYF0173-48-79 04:21:003.6[facility]annCHEM PANEL 2014-09-18 04:21:006.8[facility]annCHEM GROCV8370-10-01 04:21:000.3[facility]annCHEM AWLBB5691-99-17 04:21:0092[facility]annCHEM QIZYC0699-63-78 04:21:0018[facility]annCHEM PXLNI3846-64-87 04:21:68023Jxdupuhw HermannCHEM LFRGL3602-58-34 04:21:003.2[facility]annCHEM BZKJF9224-57-05 04:21:0022 [facility]annCHE[facility] ALGSQ3779-18-58 04:21:0010.6[facility]annCHEM PANEL 2014-09-18 04:21:001.1[facility] ZjkuafwPUMTZYYFEA0948-38-64 04:21:00* Test Item Value Reference Range Interpretation Comments PTT (test code = PTT) 28.8 s 22.9-35.8 [facility] ZlxrupbRIMMJVUNYB5889-86-55 04:21:00* Test Item Value Reference Range Interpretation Comments PT (test code = PT) 12.5 s 12.0-14.7 [facility] FnvqfkwOGUVJJUFBO2912-89-24 04:21:000.94[facility]annHEMATOLOGY 2014-09-18 04:21:007.4[facility] PrzenwwUMIJVSJZXU8019-24-53 04:21:0034.1[facility] UivqwhfFTCWOLGREG3068-30-23 04:21:0016.8[facility] AtdfdzzXUWOKPJFCP4159-67-84 04:21:31727Wofobfxm UtmtyceZNHAMNDNVV3160-82-82 04:21:0011.4[facility] GGOBBJBUKF4488-63-10 04:21:0083.0[facility] JmlffvuXDDAVVELSX2449-97-12 04:21:00* Test Item Value Reference Range Interpretation Comments MCH (test code = MCH) 28.3 pg 27.0-31.0 [facility] LqqsykbZQFXEFIEHE1209-21-11 04:21:0033.4[facility] HermannHEMATOLOGY 2014-09-18 04:21:004.03[facility] DrkzykwECCKJHPWIM6753-32-18 04:21:007.0[facility] OxyibscHTRVCCWDLM6952-05-60 04:21:003.7[facility] JcgetrzLHVPTBGSWS6623-31-90 04:21:000.6[facility] RqfxocsGLDNDPQTAN5257-83-32 04:21:000.1[facility] KIYXTFJNVY5280-02-88 04:21:0052.2[facility] SsefpeaAAWYADFGGO4895-80-20 04:21:00 0.2[facility] SefejygIEQFRIKNNX5228-32-60 04:21:001.8[facility] HermannHEMATOLOGY 2014-09-18 04:21:002.6[facility] HjesrriBQZFCHKHMN6711-74-98 04:21:008.1[facility] TjuftlyCKRVHVJNGB8645-00-48 04:21:0037.7[facility]
[2019-11-20 12:16] LABS: BASOPHILS # (AUTO) 0.1 (0.0-0.1); BASOPHILS % 1.6 % (0.0-1.0); EOSINOPHILS % 0.8 % (0.0-6.0); HEMATOCRIT 45.4 % (34.2-44.1); HEMOGLOBIN 15.3 g/dL (12.0-16.0); LYMPHOCYTES # (AUTO) 1.3 (1.0-3.2); MEAN CORPUSCULAR HEMOGLOBIN 32.1 pg (28-32); MEAN CORPUSCULAR HGB CONC 33.7 g/dL (31-35); MEAN CORPUSCULAR VOLUME 95.4 fL (81-99); MONOCYTES # (AUTO) 0.3 (0.2-0.8); MONOCYTES % 5.8 % (4.4-11.3); NEUTROPHILS # (AUTO) 3.2 (2.1-6.9); NEUTROPHILS % 64.6 % (38.7-80.0); PLATELET COUNT 279 x10e3/uL (140-360); RED BLOOD COUNT 4.76 x10e6/uL (3.6-5.1); RED CELL DISTRIBUTION WIDTH 14.6 % (11.7-14.4)
[2019-11-20 12:29] LABS: INR 0.9; PROTHROMBIN TIME 12.6 seconds (11.9-14.5)
[2019-11-20 12:30] LABS: PARTIAL THROMBOPLASTIN TIME 42.8 seconds (23.8-35.5)
[2019-11-20 12:39] LABS: ALANINE AMINOTRANSFERASE 16 IU/L (0-55); ALBUMIN 4.3 g/dL (3.5-5.0); ALBUMIN/GLOBULIN RATIO 1.1 (0.8-2.0); ALKALINE PHOSPHATASE 83 IU/L (40-150); ANION GAP 16.4 mmol/L (8-16); BLOOD UREA NITROGEN 10 mg/dL (7-26); BUN/CREATININE RATIO 11 (6-25); CARBON DIOXIDE 21 mmol/L (22-29); CHLORIDE 105 mmol/L (98-107); CREATINE KINASE 61 IU/L (29-168); CREATININE, SERUM 0.95 mg/dL (0.57-1.11); EST GLOMERULAR FILTRATION RATE > 60 ML/MIN (60-); GLUCOSE 95 mg/dL (74-118); MAGNESIUM 1.7 MG/DL (1.3-2.1); POTASSIUM 3.4 mmol/L (3.5-5.1); SODIUM 139 mmol/L (136-145)
[2019-11-20 12:41] LABS: CLARITY,URINE CLEAR (CLEAR); COLOR,URINE YELLOW (YELLOW)
[2019-11-20 12:42] LABS: LEUKOCYTE ESTERASE ,URINE NEGATIVE (NEGATIVE); NITRITE,URINE NEGATIVE (NEGATIVE); PROTEIN,URINE DIPSTICK >=300 (NEGATIVE)
[2019-11-20 12:43] LABS: BACTERIA,URINE RARE /HPF; BILIRUBIN,URINE NEGATIVE (NEGATIVE); EPITHELIAL CELLS,URINE FEW /LPF; KETONES,URINE NEGATIVE (NEGATIVE); RBC,URINE 0-5 /HPF (0-5); URINE UROBILINOGEN 0.2 mg/dL (0.2 - 1); WBC,URINE (MAN) 0-5 /HPF (0-5)
[2019-11-20] MEDS ORDERED: ONDANSETRON HCL INJ 2MG/ML 2ML 2 MG/ML VIAL IV STA (13:21)
[2019-11-20] MEDS ORDERED: MORPHINE SULFATE INJ 4 MG/ML INJ 1ML IV STA (13:21)
[2019-11-20] MEDS ORDERED: NITROGLYCERIN 2% OINT 1 GM PKT TOP ONE (13:30)
--- NOTE | 2019-11-20 13:37 | Diagnostic Imaging Report ---
X-ray chest AP History: Chest pain Comparison: 10/04/2019 Findings: Status post median sternotomy, CABG, left coronary artery stent. Central airways unremarkable. Cardiomediastinal silhouettes unremarkable for ectatic descending thoracic aorta. No pleural effusion. No pneumothorax. No focal lung disease. No significant abnormality of the visualized skeleton are upper abdomen. Impression: No acute cardiopulmonary disease on this exam. Signed by: Domingo Westbrook MD on 11/20/2019 1:33 PM
[2019-11-20] MEDS ORDERED: NITROGLYCERIN 0.4 MG SUBL SL PRN (15:00)
[2019-11-20] MEDS ORDERED: MORPHINE SULFATE 2 MG/ML SYR 1ML IV PRN (15:00)
[2019-11-20] MEDS ORDERED: ONDANSETRON HCL INJ 2MG/ML 2ML 2 MG/ML VIAL IV PRN (15:00)
--- NOTE | 2019-11-20 15:03 | Emergency Department Note ---
History of Present Illnes History of Present Illness Chief Complaint: General Medicine Complaints History of Present Illness This is a 58 year old female Patient reports chest pain that woke her up at 3am this morning check V/S with BP high took meds without relief. Pt also reports generalized weakness x3 days. Historian: Patient Arrival Mode: Car Garnishment Specialist Required: No Onset (how long ago): hour(s) Location: CHEST Quality: PRESSURE Radiation: Reports neck Severity: moderate Onset quality: sudden Timing of current episode: intermittent Progression: waxing and waning Chronicity: recurrent Context: Denies recent illness Relieving factors: none Exacerbating factors: none Associated symptoms: Reports denies other symptoms, Reports nausea/vomiting, Reports shortness of breath Treatments prior to arrival: none Past Medical/Family History Physician Review I have reviewed the patient's past medical and family history. Any updates have been documented here. Past Medical History Recent Fever: No Clinical Suspicion of Infectio: No New/Unexplained Change in Ment: No Past Medical History: Hypertension, Hypothyroidism, CAD, Chronic Back Pain Other Medical History: HEART DISEASE PER PATIENT 18 STENTS LAST HEART CATH Past Surgical History: Cholecysctectomy, CABG, Back Surgery Other Surgery: Thyroid removed Gallbladder removed Tonsillectomy Social History Smoking Cessation: Never Smoker Counseling Performed: No Alcohol Use: None Any Illegal Drug Use: No TB Exposure/Symptoms: No Physically hurt or threatened: No Family History Family history of heart diseas: No Other Last Tetanus: UTD Any Pre-Existing Lines (PICC,: No Review of Systems Review of Systems Constitutional: Reports no symptoms EENTM: Reports no symptoms Cardiovascular: Reports as per HPI Respiratory: Reports no symptoms Gastrointestinal: Reports no symptoms Genitourinary: Reports no symptoms Musculoskeletal: Reports no symptoms Integumentary: Reports no symptoms Neurological: Reports no symptoms Psychological: Reports no symptoms Endocrine: Reports no symptoms Hematological/Lymphatic: Reports no symptoms Physical Exam Related Data Allergies: Coded Allergies: Penicillins (Verified Allergy, Severe, THROAT SWELLING, 03/11/16) ketorolac tromethamine (Verified Allergy, Mild, RASH, 08/02/11) metoclopramide HCl (Verified Allergy, Mild, JERKY, 08/02/11) prochlorperazine edisylate (Verified Allergy, Mild, RASH, 08/02/11) prochlorperazine maleate (Verified Allergy, Mild, RASH, 08/02/11) Triage Vital Signs Vital Signs Date Time Temp Pulse Resp B/P (MAP) Pulse Ox O2 Delivery O2 Flow Rate FiO2 11/20/19 11:36 98.3 86 16 179/122 100 Room Air Vital signs reviewed: Yes Physical Exam CONSTITUTIONAL Constitutional: Present well-developed, Present well-nourished HENT HENT: Present normocephalic, Present atraumatic, Present oropharynx clear/moist, Present nose normal HENT L/R: Present left ext ear normal, Present right ext ear normal EYES Eyes: Reports PERRL, Reports conjunctivae normal NECK Neck: Present ROM normal PULMONARY Pulmonary: Present effort normal, Present breath sounds normal CARDIOVASCULAR Cardiovascular: Present regular rhythm, Present heart sounds normal, Present capillary refill normal, Present normal rate GASTROINTESTINAL Abdominal: Present soft, Present nontender, Present bowel sounds normal GENITOURINARY Genitourinary: Present exam deferred SKIN Skin: Present warm, Present dry MUSCULOSKELETAL Musculoskeletal: Present ROM normal NEUROLOGICAL Neurological: Present alert, Present oriented x 3, Present no gross motor or sensory deficits PSYCHOLOGICAL Psychological: Present mood/affect normal, Present judgement normal Results Laboratory Result Diagram: 11/20/19 1157 11/20/19 1157 Laboratory Laboratory Tests Test 11/20/19 12:26 11/20/19 11:57 Urine Color Yellow (YELLOW) Urine Clarity Clear (CLEAR) Urine pH 7 (5 - 7) Urine Specific [place] 1.025 (1.010-1.025) Urine Protein >=300 (NEGATIVE) Urine Glucose (UA) Negative (NEGATIVE) Urine Ketones Negative (NEGATIVE) Urine Blood Negative (NEGATIVE) Urine Nitrite Negative (NEGATIVE) Urine Bilirubin Negative (NEGATIVE) Urine Urobilinogen 0.2 mg/dL (0.2 - 1) Urine Leukocyte Esterase Negative (NEGATIVE) Urine RBC 0-5 /HPF (0-5) Urine WBC 0-5 /HPF (0-5) Urine Epithelial Cells Few /LPF (NONE) Urine Bacteria Rare /HPF (NONE) White Blood Count 4.97 x10e3/uL (4.8-10.8) Red Blood Count 4.76 x10e6/uL (3.6-5.1) Hemoglobin 15.3 g/dL (12.0-16.0) Hematocrit 45.4 % (34.2-44.1) Mean Corpuscular Volume 95.4 fL (81-99) Mean Corpuscular Hemoglobin 32.1 pg (28-32) Mean Corpuscular Hemoglobin Concent 33.7 g/dL (31-35) Red Cell Distribution Width 14.6 % (11.7-14.4) Platelet Count 279 x10e3/uL (140-360) Neutrophils (%) (Auto) 64.6 % (38.7-80.0) Lymphocytes (%) (Auto) 27.0 % (18.0-39.1) Monocytes (%) (Auto) 5.8 % (4.4-11.3) Eosinophils (%) (Auto) 0.8 % (0.0-6.0) Basophils (%) (Auto) 1.6 % (0.0-1.0) Neutrophils # (Auto) 3.2 (2.1-6.9) Lymphocytes # (Auto) 1.3 (1.0-3.2) Monocytes # (Auto) 0.3 (0.2-0.8) Eosinophils # (Auto) 0.0 (0.0-0.4) Basophils # (Auto) 0.1 (0.0-0.1) Absolute Immature Granulocyte (auto 0.01 x10e3/uL (0-0.1) Prothrombin Time 12.6 seconds (11.9-14.5) Prothromb Time International Ratio 0.90 Activated Partial Thromboplast Time 42.8 seconds (23.8-35.5) Sodium Level 139 mmol/L (136-145) Potassium Level 3.4 mmol/L (3.5-5.1) Chloride Level 105 mmol/L (98-107) Carbon Dioxide Level 21 mmol/L (22-29) Anion Gap 16.4 mmol/L (8-16) Blood Urea Nitrogen 10 mg/dL (7-26) Creatinine 0.95 mg/dL (0.57-1.11) Estimat Glomerular Filtration Rate > 60 ML/MIN (60-) BUN/Creatinine Ratio 11 (6-25) Glucose Level 95 mg/dL (74-118) Calcium Level 10.0 mg/dL (8.4-10.2) Magnesium Level 1.7 MG/DL (1.3-2.1) Total Bilirubin 0.6 mg/dL (0.2-1.2) Aspartate Amino Transf (AST/SGOT) 21 IU/L (5-34) Alanine Aminotransferase (ALT/SGPT) 16 IU/L (0-55) Alkaline Phosphatase 83 IU/L (40-150) Creatine Kinase 61 IU/L (29-168) Creatine Kinase MB 1.20 ng/mL (0-5.0) Troponin I 0.041 ng/mL (0-0.300) B-Type Natriuretic Peptide 33.8 pg/mL (0-100) Total Protein 8.1 g/dL (6.5-8.1) Albumin 4.3 g/dL (3.5-5.0) Globulin 3.8 g/dL (2.3-3.5) Albumin/Globulin Ratio 1.1 (0.8-2.0) Lab results reviewed: Yes Imaging Imaging results reviewed: Yes Procedures 12 Lead ECG Interpretation ECG Interpretation : ECG: ECG 1 Garnishment Specialist: Interpreted by ED physician Date: Nov 20, 2019 Time: 12:10 Rhythm: sinus rhythm Rate: normal (75) QRS axis: normal T wave inversion: II, III, aVF, V4, V5, V6 Other findings: LVH, early repolarization Clinical Impression: abnormal ECG Assessment & Plan Medical Decision Making MDM CHEST PAIN - CBC, CHEM, CARDIACS, ECG, CXR - R/O STEMI, NSTEMI, PNEUMONIA, NON- CARDIAC CAUSES Reassessment Reassessment ADMIT TO DR COON (COVERING FOR [place]) Assessment & Plan Final Impression: (1) Hypertension (2) Chest pain Depart Disposition: ADMITTED Last Vital Signs Date Time Temp Pulse Resp B/P (MAP) Pulse Ox O2 Delivery O2 Flow Rate FiO2 11/20/19 13:47 187/128 11/20/19 13:00 81 16 99 Room Air 11/20/19 11:36 98.3 Home Meds Active Scripts Cefuroxime Axetil (CEFUROXIME) 250 Mg Tablet, 250 MG PO Q12H for 3 Days, TAB Prov:ANTELMO HEART MD 09/29/19 Magnesium Hydroxide (MILK OF MAGNESIA) 2,400 Mg/10 Ml Oral.susp, 30 ML PO HS for 30 Days, ML Prov:ANTELMO HEART MD 09/29/19 Docusate Sodium (COLACE) 100 Mg Cap, 100 MG PO Q12H, #60 CAP Prov:ANTELMO HEART MD 09/29/19 Sennosides (SENNA LAXATIVE) 8.6 Mg Tablet, 8.6 MG PO Q12H, #60 Prov:ANTELMO HEART MD 09/29/19 Ondansetron Hcl* (ZOFRAN*) 4 Mg Tablet, 4 MG PO Q4HR PRN for nausea/vomiting, #30 Prov:ANTELMO HEART MD 09/29/19 Lactulose (LACTULOSE) 20 Gm/30 Ml Solution, 20 GM PO BID PRN for CONSTIPATION for 30 Days Prov:ANTELMO HEART MD 09/29/19 Amlodipine Besylate (NORVASC) 5 Mg Tab, 5 MG PO DAILY for 30 Days, TAB Prov:ANTELMO HEART MD 09/29/19 Sennosides (SENNA LAX) 8.6 Mg Tablet, 8.6 MG PO BID PRN for CONSTIPATION for 30 Days, TAB Prov:ANTELMO HEART MD 09/06/19 Tramadol Hcl* (ULTRAM 50MG*) 50 Mg Tab, 50 MG PO Q8H PRN for pain, #15 TAB Prov:ANTELMO HEART MD 09/06/19 Metoprolol Succinate (TOPROL XL) 25 Mg Tab.er.24h, 12.5 MG PO DAILY for 30 Days Prov:ANTELMO HEART MD 09/06/19 Docusate Sodium (COLACE) 100 Mg Cap, 100 MG PO BID PRN for constipation for 30 Days, CAP Prov:ANTELMO HEART MD 09/06/19 [Atorvastatin] 80 MG TAB No Conflict Check, 80 MG PO HS for 30 Days Prov:ANTELMO HEART MD 09/06/19 Aspirin (ASPIRIN EC) 81 Mg Tablet.dr, 81 MG PO QAM for 30 Days Prov:ANTELMO HEART MD 09/06/19 Ondansetron (ZOFRAN ODT) 4 Mg Tab.rapdis, 4 MG PO Q4-6H PRN, #12 Prov:LIBERTAD QUIÑONEZ MD 05/22/16 Pantoprazole Sodium* (PROTONIX) 40 Mg Tablet.dr, 40 MG PO DAILY for 30 Days, TAB Prov:LIBERTAD QUIÑONEZ MD 05/22/16 Reported Medications Levothyroxine Sodium (SYNTHROID) 50 Mcg Tab, 200 MCG PO 0630, #60 TAB 09/29/19 Alprazolam (XANAX) 0.5 Mg Tablet, 0.5 MG PO PRN 04/10/16 Oxycodone Hcl (OXYCODONE HCL) 20 Mg Tablet, 10 MG PO TID PRN for RN, TAB 03/11/16 Temazepam (RESTORIL) 30 Mg Capsule, 30 MG PO BEDTIME 05/22/14 Clonazepam (CLONAZEPAM) 2 Mg Tab.rapdis, 2 MG PO TID 05/22/14 Lisinopril (LISINOPRIL) 10 Mg Tablet, 10 MG PO BID, #30 TAB 05/22/14 Clopidogrel Bisulfate (Plavix) 75 Mg Tablet, 1 TAB PO DAILY 08/02/11 Levothyroxine Sodium (Levothyroxine Sodium) 200 Mcg Tablet, 175 MCG PO DAILY 08/02/11 Medications in the ED Nitroglycerin 1 gm ONCE ONCE TOP Last administered on 11/20/19at 13:47; Admin Dose 1 GM; Start 11/20/19 at 13:30; Stop 11/20/19 at 13:40; Status DC Morphine Sulfate 4 mg NOW STAT IV Last administered on 11/20/19at 13:45; Admin Dose 4 MG; Start 11/20/19 at 13:21; Stop 11/20/19 at 13:40; Status DC Ondansetron HCl 4 mg NOW STAT IV Last administered on 11/20/19at 13:44; Admin Dose 4 MG; Start 11/20/19 at 13:21; Stop 11/20/19 at 13:40; Status DC Aspirin 81 mg QAM PO ; Start 11/21/19 at 09:00; Stop 12/21/19 at 08:59; Status UNV Nitroglycerin 0.4 mg Q5M PRN SL CHEST PAIN; Start 11/20/19 at 15:00; Status UNV Morphine Sulfate 2 mg Q3H PRN IV MODERATE PAIN (4-6); Start 11/20/19 at 15:00; Stop 11/27/19 at 14:59; Status UNV Nitroglycerin 1 gm Q6H TOP ; Start 11/20/19 at 18:00; Stop 12/20/19 at 17:59; Status UNV Famotidine 20 mg Q12H IV ; Start 11/20/19 at 21:00; Stop 12/20/19 at 20:59; Status UNV Ondansetron HCl 4 mg Q4H PRN IV NAUSEA AND VOMITING; Start 11/20/19 at 15:00; Stop 12/20/19 at 14:59; Status UNV Hydralazine HCl 10 mg Q4H PRN IV HIGH BLOOD PRESSURE; Start 11/20/19 at 15:00; Stop 12/20/19 at 14:59; Status UNV SAM HASTINGS MD Nov 20, 2019 15:03
--- OUTSIDE RECORDS SUMMARY | 2019-11-20 15:04 | XMS REPORT | Clinical Summary ---
Author Author [facility] Address Unknown Phone Unavailable Care Team Providers Care Supervisor [employer] Name Role Phone PCP Unavailable Allergies Comments [...] [employer] FED xxxxxxxxx [address] [place] [address] Advance Directives For more information, please contact: [facility] [address] [place] [address] Date Inactivated Comments Code Status Date Activated 06/05/2016 12:30 AM Full Code 06/04/2016 11:27 AM This code status was determined by: Patient 06/04/2016 11:27 AM Full Code 05/30/2016 9:51 PM This code status was determined by: Patient
--- OUTSIDE RECORDS SUMMARY | 2019-11-20 15:04 | XMS REPORT | Continuity of Care Document ---
Author Author Jacob Plascencia [employer] [employer] Address Unknown Phone Unavailable Care Team Providers Care Room Worker Name Role Phone ISIGN [employer] Information [employer] Unavailable Un available Problems Problem Status Onset Date Classification Date Reported Comments Source Discharge Diagnosis: Dental caries, unspecified 03/27/2016 03/30/2016 [facility] Discharge Diagnosis: Other specified dis orders of teeth and supporting structures 03/27/2016 03/30/2016 [facility] Discharge Diagnosis: Periapical abscess without sinus 03/27/2016 03/30/2016 [facility] MOUTH PAIN Active 03/27/2016 [facility] ACUTE CHEST PAIN. GASTRP ARESOS Active 04/11/2015 [facility] ACUTE CHEST PAIN GASTRPARESIS Active 04/11/2015 [facility] Discharge Diagnosis: Chest pain 12/07/2014 12/11/2014 [facility] CHEST PAIN Active 12/07/2014 [facility] ACUTE CHEST PAIN, RULE OUT ACS Active 11/23/2014 [facility] Congestive heart failure (disorder) Active Problem 03/2017 [facility] Hypertensive disorder, systemic arterial (disorder) Active Problem 04/16/2016 [facility] Myocardial infarction (disorder) Resolved Problem 03/2017 3 [facility] 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 (Same as: Tylenol) Inactive 04/13/2016 [facility] Acetaminophen 300 MG / Codeine Phosphate 30 MG Oral Tablet [Tylenol with Codeine #3] 1 - 2 tab, PO, Q4H, PRN Pain, X 2 day, # 20 tab, 0 Refill(s) No Longer Active 04/13/2016 [facility] atorvastatin 40 mg oral tablet 80 mg = 2 tab, PO, Bedtime, # 60 tab, 0 Refill(s) Active 04/13/2016 [facility] Morphine Notes: (Same as:MORPh ine Sulfate) No Longer Active 04/12/2016 [facility] pantoprazole Notes: Tablet marquez uld not be chewed or crushed. (Same as: Protonix) N o Longer Active 04/12/2016 [facility] Morphine Notes: (Same as:MORPh ine Sulfate) Inactive 04/12/2016 [facility] atorvastatin Notes: (Same as: Lipitor) No Longer Active 04/12/2016 [facility] metoprolol tartrate Notes: (Sa me as: Toprol XL) May split tab, but do not crush. N o Longer Active 04/12/2016 [facility] Lisinopril Notes: (Same as: Pr inivil, Zestril) No Longer Active 04/12/2016 [facility] Plavix Notes: (Same As: Plavix) No Longer Active 04/12/2016 [facility] Norvasc Notes: (Same as: Norva sc) No Longer Active 04/12/2016 [facility] Saline Flush 0.9% Notes: (Same as: BD Posiflush) No Longer Active 04/12/2016 [facility] heparin Notes: porcine heparin No Longer Active 04/12/2016 [facility] Sucralfate 100 MG/ML Oral Suspension [Carafate] Notes: May interfere w/enteral feeds - Take 1 hr before or 2 hr after antacids, dairy pdt, meals & minerals - On empty stomach. For patients unable to swallow tablet, dissolve in 10mL - 30mL of water or juice and stir before giving. (Same As: Carafate) No Longer Activ e 04/12/2016 [facility] Thyroxine Notes: Take 1 hour b efore or 2 hours after meal; Enteral feeds may interefere with the absorption of this medication. (Same as: Levothroid) No Longe r Active 04/12/2016 [facility] Aspirin 325 MG Oral Tablet Not es: Take with food. No Longer Active 04/12/2016 [facility] Clonidine Hydrochloride 0.1 MG Oral Tablet Notes: (Same As: Catapres) No Longer Active 04/12/2016 [facility] Acetaminophen 325 MG / Hydrocodone Marcio trate 5 MG Oral Tablet [Lowes 5/325] Notes: (Same as: Lowes 325/5) Do not ex ceed 4gm/day of acetaminophen. No Longer Activ e 04/12/2016 [facility] Ativan Notes: (Same as: Ativan) No Longer Active 04/12/2016 [facility] Morphine Notes: (Same as:MORPh ine Sulfate) Inactive 04/12/2016 [facility] 24 HR tramadol hydrochloride 100 MG Exte nded Release Tablet 100 mg = 1 tab, PO, Q4H, 0 Refill(s) Active 04/12/2016 [facility] Amlodipine 10 MG Oral Tablet [Norvasc] See Instructions, 1 tab PO Daily, 0 Refill(s) Active 04/12/2016 [facility] Saline Flush 0.9% Notes: (Same as: BD Posiflush) No Longer Active 04/12/2016 [facility] Morphine Notes: (Same as:MORPh ine Sulfate) Inactive 04/12/2016 [facility] Nitroglycerin Notes: (Same as: Nitroquick, Nitrostat) "Do Not Crush" Sublingual tablet No Longer Active 04/12/2016 [facility] Ativan 0.5 mg, Route: IVP, Bandar g form: INJ, ONCE, Dosing Weight 72.727, kg, Priority: STAT, Start date: 04/12/16 1:56:00 [employer], Stop date: 04/12/16 1:56:00 [employer] Inactive 04/12/2016 [facility] Morphine Notes: (Same as:MORPh ine Sulfate) No Longer Active 04/12/2016 [facility] Nitroglycerin Notes: (Same as: Nitroquick, Nitrostat) "Do Not Crush" Sublingual tablet No Longer Active 04/12/2016 [facility] Famotidine Notes: (Same as: Pe pcid) Can be dilute in 5- 10cc NS IVP: Slow IV push over at least 2 minutes. No Longer Active 04/12/2016 [facility] Saline Flush 0.9% Notes: Same as: BD Posiflush Sterile No Longer Active 04/12/2016 [facility] Acetaminophen 300 MG / Codeine Phosphate 30 MG Oral Tablet [Tylenol with Codeine #3] 1 - 2 tab, PO, Q4H, PRN Pain, X 3 day, # 20 tab, 0 Refill(s) Active 03/27/2016 [facility] Clindamycin 300 MG Oral Capsule [Cleocin] 300 mg = 1 cap, PO, QID, X 10 day, # 40 cap, 0 Refill(s) Active 03/27/2016 [facility] Dilaudid 0.5 mg, 0.5 mL, Route : IM, Drug form: INJ, ONCE, Dosing Weight 72.727, kg, Priority: STAT, Start date: 03/27/16 10:29:00 [employer], Stop date: 03/27/16 10:29:00 [employer] Inactive 03/27/2016 [facility] Acetaminophen 325 MG / Hydrocodone Marcio trate 10 MG Oral Tablet [Lowes 10/325] 1 tab, Route: PO, Drug Form: TAB, Dosing Weight 72.727, kg, ONCE, STAT, Start date: 03/27/16 10:26:00 [employer], Stop date: 03/27/16 10:26:00 [employer] Inactive 03/27/2016 [facility] Clindamycin Notes: (clindamyci n 150 mg/1 ml (600 mg/4 ml VL) INJ) (Same As: Cleocin) Inactive 03/27/2016 [facility] Thyroxine Notes: Take 1 hour b efore or 2 hours after meal; Enteral feeds may interefere with the absorption of this medication. (Same as: Levothroid) No Longe r Active 12/09/2014 [facility] Plavix Notes: (Same As: Plavix) No Longer Active 12/09/2014 [facility] 24 HR Metoprolol Tartrate 50 MG Extended Release Tablet [Toprol] Notes: (Same as: Toprol XL) May split t ab, but do not crush. No Longer Active 12/09/2014 [facility] Lisinopril Notes: (Same as: Pr inivil, Zestril) Inactive 12/08/2014 [facility] pantoprazole Notes: Tablet marquez uld not be chewed or crushed. (Same as: Protonix) Inactive 12/08/2014 [facility] Sucralfate 100 MG/ML Oral Suspension [Carafate] Notes: Enteral feeds may interfere with the absorption of this medication. Shake well. Take 1 hr before or 2 hrs after antacids, dairy pdt, minerals & meals. (Same As: Carafate) Inactive 12/08/2014 [facility] Erythromycin 250 MG Enteric Coated Tablet Notes: (Same as: Brenton-Tab) Give With Food "Do Not Crush" Inactive 12/08/2014 [facility] Sucralfate 100 MG/ML Oral Suspension [Carafate] 1 gm = 10 ml, PO, QID-Before Meals, # 1200 mL, 0 Refill(s) Active 12/08/2014 [facility] tramadol hydrochloride 50 MG Oral Tablet 50 mg = 1 tab, PO, Q6H, PRN Pain, # 30 tab, 0 Refill(s) Active 12/08/2014 [facility] Aspirin 325 MG Oral Tablet Not es: Take with food. Inactive 12/08/2014 [facility] Hyoscyamine Notes: (Same as: L evsin) Take 30 min before meal Inactive 12/08/2014 [facility] Valium Notes: (Same as: Valium) Inactive 12/08/2014 [facility] Clonidine Hydrochloride 0.1 MG Oral Tablet Notes: (Same As: Catapres) Inactive 12/08/2014 [facility] Diazepam 10 MG Oral Tablet [Valium] 10 mg = 1 tab, PO, TID, PRN Anxiety, 0 Refill(s) Active 12/08/2014 [facility] Temazepam 30 MG Oral Capsule [Restoril] 30 mg = 1 cap, PO, Bedtime, PRN Sleep, 0 Refill(s) Active 12/08/2014 [facility] clopidogrel 75 MG Oral Tablet [Plavix] 75 mg = 1 tab, PO, Daily, # 30 tab, 0 Refill(s) Active 12/08/2014 [facility] tramadol hydrochloride 50 MG Oral Tablet 50 mg = 1 tab, PO, Q6H, PRN Pain, 0 Refill(s) Inactive 12/08/2014 [facility] promethazine 25 mg oral tablet 25 mg = 1 tab, PO, Q4H, PRN Nausea/Vomiting, 0 Refill(s) Active 12/08/2014 [facility] pantoprazole 40 mg oral enteric coated tablet 40 mg = 1 tab, PO, Before Dinner, 0 Refill(s) Active 12/08/2014 [facility] metoprolol 50 mg oral tablet, extended release 50 mg = 1 tab, PO, BID, 0 Refill(s) Active 12/08/2014 [facility] lisinopril 20 mg oral tablet 2 0 mg = 1 tab, PO, BID, # 60 tab, 0 Refill(s) Active 12/08/2014 [facility] levothyroxine 200 mcg (0.2 mg) oral tablet 200 microgram = 1 tab, PO, Daily, # 30 tab, 0 Refill(s) Active 12/08/2014 [facility] hyoscyamine 0.125 mg sublingual tablet 0.125 mg = 1 tab, SL, Before Meals & Bedtime, 0 Refill(s) Active 12/08/2014 [facility] erythromycin 250 mg oral delayed release capsule 250 mg = 1 cap, PO, Q6H, # 40 cap, 0 Refill(s) Active 12/08/2014 [facility] Clonidine Hydrochloride 0.1 MG Oral Tablet 0.1 mg = 1 tab, PO, TID, PRN Hypertension, 0 Refill(s) Active 12/08/2014 [facility] Aspirin 325 MG Oral Tablet 325 mg = 1 tab, PO, Daily, # 30 tab, 0 Refill(s) Active 12/08/2014 [facility] Phenergan Notes: Do not give I V push. (Same as: Phenergan) Inactive 12/08/2014 [facility] Morphine Notes: (Same as:MORPh ine Sulfate) Inactive 12/08/2014 [facility] Sodium Chloride 0.154 MEQ/ML Injectable Solution 1,000 mL, Rate: 125 ml/hr, Infuse over: 8 hr, Route: IV, Dosing Weight 81.818 kg, Total Volume: 1,000, Start date: 12/08/14 4:07:00, Duration: 30 day, Stop date: 01/07/15 4:06:00 Inactive 12/08/2014 [facility] Saline Flush 0.9% Notes: (Same as: BD Posiflush) Inactive 12/08/2014 [facility] nitroglycerin 0.4 mg sublingual tablet Notes: (Same as:Nitroquick Nitrostat) "Do Not Crush" Sublingual tablet Inactive 12/08/2014 [facility] atropine 0.5 mg, 5 mL, Route: IVP, Drug form: INJ, PRN, PRN Bradycardia, Start date: 12/08/14 3:28:00, Duration: 30 day, Stop date: 01/07/15 3:27:00 Inactive 12/08/2014 [facility] Furosemide 20 MG Oral Tablet [Lasix] 20 mg = 1 tab, PO, Daily, 0 Refill(s) Inactive 12/08/2014 [facility] Labetalol Notes: (Same as: Nor carola Trandate) Push over 2 minutes Give bolus over 2-3 minutes. Inactive 12/08/2014 [facility] Nitroglycerin 0.4 MG Sublingual Tablet [Nitrostat] Notes: (Same as:Nitroquick, Nitrostat) "Do Not Crush" Sublingual tablet Inactive 12/08/2014 [facility] Phenergan 12.5 mg, Route: IVPB , ONCE, Dosing Weight 77.273, kg, Priority: STAT, Start date: 12/08/14 0:34:00, Stop date: 12/08/14 0:34:00 Inactive 12/08/2014 [facility] Morphine 4 mg, Route: IVP, Bandar g form: INJ, ONCE, Dosing Weight 77.273, kg, Priority: STAT, Start date: 12/08/14 0:34:00, Stop date: 12/08/14 0:34:00 Inactive 12/08/2014 [facility] Morphine 4 mg, Route: IVP, Bandar g form: INJ, ONCE, Dosing Weight 77.273, kg, Priority: STAT, Start date: 12/08/14 0:26:00, Stop date: 12/08/14 0:26:00 Inactive 12/08/2014 [facility] Phenergan 12.5 mg, Route: IVPB , ONCE, Dosing Weight 77.273, kg, Priority: STAT, Start date: 12/08/14 0:25:00, Stop date: 12/08/14 0:25:00 Inactive 12/08/2014 [facility] Bentyl 20 mg, Route: PO, ONCE, Dosing Weight 77.273, kg, Start date: 12/07/14 23:41:00, Stop date: 12/07/14 23:41:00 No Longer Active 12/08/2014 [facility] Morphine 4 mg, Route: IVP, Bandar g form: INJ, ONCE, Dosing Weight 77.273, kg, Priority: STAT, Start date: 12/07/14 22:35:00, Stop date: 12/07/14 22:35:00 Inactive 12/08/2014 [facility] GI cocktail Notes: [place] = antacid with simethicone 22.5 mL - lidocaine viscous 7.5 mL Inactive 12/08/2014 [facility] Morphine 4 mg, Route: IVP, Bandar g form: INJ, ONCE, Dosing Weight 77.273, kg, Priority: STAT, Start date: 12/07/14 20:58:00, Stop date: 12/07/14 20:58:00 Inactive 12/08/2014 [facility] Protonix 40 mg, Route: IVP, ON CE, Dosing Weight 77.273, kg, Priority: STAT, Start date: 12/07/14 20:58:00, Stop date: 12/07/14 20:58:00 Inactive 12/08/2014 [facility] Clonidine 0.1 mg, Route: PO, D rug form: TAB, ONCE, Dosing Weight 77.273, kg, Priority: STAT, Start date: 12/07/14 19:49:00, Stop date: 12/07/14 19:49:00 Inactive 12/08/2014 [facility] Phenergan 12.5 mg, Route: IVPB , ONCE, Dosing Weight 77.273, kg, Priority: STAT, Start date: 12/07/14 19:49:00, Stop date: 12/07/14 19:49:00 Inactive 12/08/2014 [facility] Sodium Chloride 0.154 MEQ/ML Injectable Solution 1,000 mL, 1,000 ml/hr, Infuse Over: 1 hr, Route: IV, ONCE, Priority: STAT, Dosing Weight 77.273 kg, Start date: 12/07/14 19:48:00, Duration: 1 doses or times, Stop date: 12/07/14 19:48:00 Inactive 12/08/2014 [facility] metoprolol tartrate 50 mg oral tablet 50 mg = 1 tab, PO, Q12H, # 120 tab, 0 Refill(s) Active 12/01/2014 [facility] lisinopril 20 mg oral tablet 2 0 mg = 1 tab, PO, BID, # 60 tab, 0 Refill(s) Active 12/01/2014 [facility] clopidogrel 75 MG Oral Tablet [Plavix] 75 mg = 1 tab, PO, Daily, # 30 tab, 0 Refill(s) Active 12/01/2014 [facility] Aspirin 325 MG Oral Tablet 325 mg, PO, Daily, # 30 tab, 0 Refill(s) Active 12/01/2014 [facility] Temazepam 30 MG Oral Capsule [Restoril] 30 mg = 1 cap, PO, Bedtime, X 7 day, # 7 cap, 0 Refill(s) Active 12/01/2014 [facility] Diazepam 10 MG Oral Tablet [Valium] 10 mg = 1 tab, PO, TID, PRN Anxiety, X 7 day, # 21 tab, 0 Refill(s) Active 12/01/2014 [facility] levothyroxine 200 mcg (0.2 mg) oral tablet 200 microgram = 1 tab, PO, Daily, # 30 tab, 0 Refill(s) Active 12/01/2014 [facility] Clonidine Hydrochloride 0.1 MG Oral Tablet 0.1 mg = 1 tab, PO, TID, PRN Hypertension, # 90 tab, 0 Refill(s) Active 12/01/2014 [facility] tramadol hydrochloride 50 MG Oral Tablet 50 mg = 1 tab, PO, Q6H, PRN Pain, X 10 day, # 40 tab, 0 Refill(s) Active 12/01/2014 [facility] erythromycin 250 mg oral tablet 250 mg = 1 tab, PO, Q6H, X 10 day, # 40 tab, 0 Refill(s) Active 12/01/2014 [facility] promethazine 25 mg oral tablet 25 mg = 1 tab, PO, Q4H, PRN Allergic reaction, X 7 day, # 42 tab, 0 Refill(s) Active 12/01/2014 [facility] pantoprazole 40 mg oral enteric coated tablet 40 mg = 1 tab, PO, Before Dinner, # 30 tab, 0 Refill(s) Active 12/01/2014 [facility] hyoscyamine 0.125 mg sublingual tablet 0.125 mg = 1 tab, PO, Before Meals & Bedtime, # 120 tab, 0 Refill(s) Active 12/01/2014 [facility] hydrOXYzine hydrochloride 10 mg/5 mL oral syrup Notes: (Same as: Atarax) No Longer Active 11/29/2014 [facility] Erythromycin Ethylsuccinate 40 MG/ML Oral Suspension Notes: (Same as: E.E.S.-400) N o Longer Active 11/29/2014 [facility] Hydroxyzine Notes: (Same as: V istaril) Avoid alcohol. Inactive 11/29/2014 [facility] Tylenol Notes: Do not exceed 4 gm/day. (Same as: Tylenol) No Longer Active 11/28/2014 [facility] Dilaudid 1 mg, 1 mL, Route: IV , Drug form: INJ, Q4H, Dosing Weight 81.818, kg, PRN Pain Score 7-10, Start date: 11/28/14 11:53:00, Duration: 30 day, Stop date: 12/28/14 11:52:00 No Longer Active 11/28/2014 [facility] Levsin Notes: (Same as: Levsin ) Take 30 min before meal No Longer Active 11/28/2014 [facility] Protonix Notes: Tablet should not be chewed or crushed. (Same as: Protonix) No Longer Active 11/26/2014 [facility] Levsin Notes: (Same as: Levsin ) Take 30 min before meal No Longer Active 11/26/2014 [facility] Sodium Chloride 0.154 MEQ/ML Injectable Solution 500 mL, Rate: 25 ml/hr, Infuse over: 20 hr, Route: IV, Dosing Weight 81.818 kg, Total Volume: 500, Start date: 11/26/14 8:15:00, Duration: 1 day, Stop date: 11/27/14 8:14:00 No Longer Active 11/26/2014 [facility] Dilaudid 1 mg, 1 mL, Route: IV P, Drug form: INJ, ONCE, Dosing Weight 81.818, kg, Priority: STAT, Start date: 11/25/14 17:51:00, Stop date: 11/25/14 17:51:00 Inactive 11/25/2014 [facility] Plavix Notes: (Same As: Plavix) No Longer Active 11/25/2014 [facility] Aspirin 325 MG Oral Tablet Not es: Take with food. No Longer Active 11/25/2014 [facility] Thyroxine Notes: Take 1 hour b efore or 2 hours after meal; Enteral feeds may interefere with the absorption of this medication. (Same as: Levothroid) No Longe r Active 11/25/2014 [facility] Famotidine 20 MG Oral Tablet N otes: (Same as: Pepcid) No Longer Active 11/25/2014 [facility] Restoril Notes: (Same As: Rest oril) No Longer Active 11/25/2014 [facility] metoprolol tartrate Notes: (Sa me as: Lopressor) No Longer Active 11/25/2014 [facility] Lisinopril Notes: (Same as: Pr inivil, Zestril) No Longer Active 11/25/2014 [facility] Lipitor Notes: (Same as: Lipit or) No Longer Active 11/25/2014 [facility] Dilaudid 0.5 mg, 0.5 mL, Route : IV, Drug form: INJ, Q3H, Dosing Weight 81.818, kg, PRN Pain Score 7-10, Start date: 11/24/14 17:16:00, Duration: 30 day, Stop date: 12/24/14 17:15:00 No Longer Active 2014 [facility] Acetaminophen 325 MG / Hydrocodone Marcio trate 10 MG Oral Tablet [Lowes 10/325] Notes: Do not exceed 4gm/day of acetamin ophen. (Same as: Lowes 325/10) No Longer Active 2014 [facility] Valium Notes: (Same as: Valium) No Longer Active 2014 [facility] Phenergan Notes: Do not give I V push. (Same as: Phenergan) No Longer Active 2014 [facility] Saline Flush 0.9% Notes: (Same as: BD Posiflush) No Longer Active 2014 [facility] Dilaudid 0.5 mg, 0.5 mL, Route : IV, Drug form: INJ, Q4H, Dosing Weight 81.818, kg, PRN Pain Score 7-10, Start date: 11/23/14 18:49:00, Duration: 30 day, Stop date: 12/23/14 18:48:00 No Longer Active 11/23/2014 [facility] Phenergan Notes: (Same as: Phe nergan) No Longer Active 11/23/2014 [facility] Magnesium Sulfate 2 gm, 50 mL, Route: IVPB, Drug form: INJ, ONCE, Dosing Weight 81.818, kg, Total dose = 2 gm, Start date: 11/23/14 18:46:00, Duration: 1 doses or times, Stop date: 11/23/14 18:46:00 Inactive 11/23/2014 [facility] normal saline 0.9% IV 1,000 mL 1,000 mL, Rate: 80 ml/hr, Infuse over: 12.5 hr, Route: IV, Dosing Weight 81.818 kg, Total Volume: 1,000, Start date: 11/23/14 18:39:00, Stop date: 12/23/14 18:38:00 No Longer Active 11/23/2014 [facility] nitroglycerin 0.4 mg sublingual tablet Notes: (Same as:Nitroquick, Nitrostat) "Do Not Crush" Sublingual tablet No Longer Active 11/23/2014 [facility] atropine 0.5 mg, 5 mL, Route: IVP, Drug form: INJ, PRN, PRN Bradycardia, Start date: 11/23/14 18:36:00, Duration: 30 day, Stop date: 12/23/14 18:35:00 No Longer Active 11/23/2014 [facility] Pepcid Notes: (Same as: Pepcid ) Can be dilute in 5-10cc NS IVP: Slow IV push over at least 2 minutes. No Longer Active 11/23/2014 [facility] Dilaudid 1 mg, Route: IVP, ONC E, Dosing Weight 81.818, kg, Priority: STAT, Start date: 11/23/14 17:57:00, Stop date: 11/23/14 17:57:00 Inactive 11/23/2014 [facility] Benadryl 25 mg, Route: IVP, ON CE, Dosing Weight 81.818, kg, PRN Allergic reaction, Start date: 11/23/14 17:56:00 Inactive 11/23/2014 [facility] Reglan 10 mg, Route: IVP, ONCE , Dosing Weight 81.818, kg, Start date: 11/23/14 17:55:00, Stop date: 11/23/14 17:55:00 Inactive 11/23/2014 [facility] Clonidine Hydrochloride 0.1 MG Oral Tablet 160 No Longer Active 11/23/2014 [facility] Droperidol 0.625 mg, Route: IV P, ONCE, Dosing Weight 81.818, kg, PRN Nausea, Start date: 11/23/14 17:42:00, Stop date: 12/23/14 17:41:00 Inactive 11/23/2014 [facility] Saline Flush 0.9% Notes: (Same as: BD Posiflush) No Longer Active 11/23/2014 [facility] Morphine Notes: (Same as:MORPh ine Sulfate) No Longer Active 11/23/2014 [facility] Nitroglycerin Notes: (Same as: Nitroquick, Nitrostat) "Do Not Crush" Sublingual tablet Inactive 11/23/2014 [facility] Morphine Notes: (Same as:MORPh ine Sulfate) Inactive 11/23/2014 [facility] Clonidine Hydrochloride 0.1 MG Oral Tablet Notes: (Same As: Catapres) No Longer Active 11/23/2014 [facility] Labetalol Notes: (Same as: Nor modyne, Trandate) Push over 2 minutes Give bolus over 2-3 minutes. No Longer Active 11/23/2014 [facility] Ativan 1 mg, Route: PO, Drug f orm: TAB, ONCE, Dosing Weight 81.818, kg, Priority: STAT, Start date: 11/23/14 14:33:00, Stop date: 11/23/14 14:33:00 Inactive 11/23/2014 [facility] Nitroglycerin Notes: (Same as: Nitroquick, Nitrostat) "Do Not Crush" Sublingual tablet Inactive 11/23/2014 [facility] Morphine 4 mg, Route: IVP, Bandar g form: INJ, ONCE, Dosing Weight 81.818, kg, Priority: STAT, Start date: 11/23/14 13:13:00, Stop date: 11/23/14 13:13:00 Inactive 11/23/2014 [facility] Saline Flush 0.9% Notes: (Same as: BD Posiflush) Inactive 11/23/2014 [facility] multivitamin with minerals Not es: (Same as:Thera-M, Theragran-M) Give with food. No Longer Active 09/19/2014 [facility] Thyroxine Notes: Take 1 hour b efore or 2 hours after meal; Enteral feeds may interefere with the absorption of this medication.(Same as:Levothroid, Synthroid) No Longer Active 09/19/2014 [facility] Aspirin 325 MG Oral Tablet 325 mg, Route: PO, Drug form: TAB, Daily, Dosing Weight 79.545, kg, Start date: 09/19/14 9:00:00, Duration: 30 day, Stop date: 10/18/14 9:00:00 No Longer Active 09/19/2014 [facility] Plavix 75 mg, Route: PO, Drug form: TAB, Daily, Dosing Weight 79.545, kg, Start date: 09/19/14 9:00:00, Duration: 30 day, Stop date: 10/18/14 9:00:00 No Longer Active 09/19/2014 [facility] potassium chloride 80 mEq, Rou te: PO, Daily, Dosing Weight 79.545, kg, Start date: 09/19/14 9:00:00, Duration: 30 day, Stop date: 10/18/14 9:00:00 No Longer Active 09/19/2014 [facility] metoprolol tartrate 50 mg, Rou te: PO, Drug form: TAB, Q12H, Dosing Weight 79.545, kg, Start date: 09/18/14 21:00:00, Duration: 30 day, Stop date: 10/18/14 9:00:00 Inactive 09/19/2014 [facility] Lipitor 80 mg, Route: PO, Drug form: TAB, Bedtime, Dosing Weight 79.545, kg, Start date: 09/18/14 21:00:00, Duration: 30 day, Stop date: 10/17/14 21:00:00 Inactive 09/19/2014 [facility] Restoril 30 mg, Route: PO, Bandar g form: CAP, Bedtime, Dosing Weight 79.545, kg, Start date: 09/18/14 21:00:00, Duration: 30 day, Stop date: 10/17/14 21:00:00 Inactive 09/19/2014 [facility] Lisinopril 20 mg, Route: PO, D rug form: TAB, BID, Dosing Weight 79.545, kg, Start date: 09/18/14 17:00:00, Duration: 30 day, Stop date: 10/18/14 9:00:00 Inactive 09/18/2014 [facility] acetaminophen-hydrocodone 325 mg-10 mg oral tablet Notes: Do not exceed 4gm/day of acetaminophen. (Same as: Lowes 325/10) Inactive 09/18/2014 [facility] Hydralazine Hydrochloride 10 MG Oral Tablet Notes: (Same as: Apresoline) May interfere w/enteral feedings. Take With Food Inactive 09/18/2014 [facility] Acetaminophen 325 MG / Hydrocodone Marcio trate 10 MG Oral Tablet [Lowes 10/325] Notes: Do not exceed 4gm/day of acetamin ophen. (Same as: Lowes 325/10) Inactive 09/18/2014 [facility] metoprolol tartrate 50 mg oral tablet 50 mg = 1 tab, PO, Q12H, # 120 tab, 0 Refill(s) O n Hold 09/18/2014 [facility] clopidogrel 75 MG Oral Tablet [Plavix] 75 mg = 1 tab, PO, Daily, # 30 tab, 0 Refill(s) On Hold 09/18/2014 [facility] atorvastatin 80 MG Oral Tablet [Lipitor] 80 mg = 1 tab, PO, Bedtime, # 30 tab, 0 Refill(s) On Hold 09/18/2014 [facility] lisinopril 20 mg oral tablet 2 0 mg = 1 tab, PO, BID, # 60 tab, 0 Refill(s) On Hold 09/18/2014 [facility] Aspirin 325 MG Oral Tablet 325 mg, PO, Daily, # 30 tab, 0 Refill(s) On Hold 09/18/2014 [facility] Hydralazine Hydrochloride 10 MG Oral Tablet 160 mmHg, # 120 tab, 0 Refill(s) On Hold 09/18/2014 [facility] Saline Flush 0.9% Notes: (Same as: BD Posiflush) Inactive 09/18/2014 [facility] Valium Notes: (Same as: Valium) Inactive 09/18/2014 [facility] metoprolol tartrate Notes: (Sa me as: Lopressor) Inactive 09/18/2014 [facility] Lisinopril Notes: (Same as: Pr inivil, Zestril) Inactive 09/18/2014 [facility] clopidogrel 75 MG Oral Tablet [Plavix] 75 mg = 1 tab, PO, Daily Inactive 09/18/2014 [facility] lisinopril 20 mg oral tablet 2 0 mg = 1 tab, PO, BID, 0 Refill(s) Inactive 09/18/2014 [facility] Temazepam 30 MG Oral Capsule [Restoril] 30 mg = 1 cap, PO, Bedtime On Hold 09/18/2014 [facility] Diazepam 10 MG Oral Tablet [Valium] 10 mg = 1 tab, PO, TID, PRN Anxiety On Hold 09/18/2014 [facility] metoprolol tartrate 50 mg oral tablet 50 mg = 1 tab, PO, Q12H Inactive 09/18/2014 [facility] levothyroxine 200 mcg (0.2 mg) oral tablet 200 microgram = 1 tab, PO, Daily, # 30 tab On Hold 09/18/2014 [facility] Aspirin 325 mg, PO, Daily, 0 R efill(s) Inactive 09/18/2014 [facility] Centrum Adults 1 tab, PO, Olivia y, 0 Refill(s) On Hold 09/18/2014 [facility] atorvastatin 80 MG Oral Tablet [Lipitor] 80 mg = 1 tab, PO, Bedtime Inactive 09/18/2014 [facility] Acetaminophen 325 MG / Hydrocodone Marcio trate 10 MG Oral Tablet [Lowes 10/325] 1-2 tab, PO, Q4-6H, PRN Pain On Hold 09/18/2014 [facility] potassium chloride 80 mEq, PO, Daily On Hold 09/18/2014 [facility] Phenergan Notes: Do not give I V push. (Same as: Phenergan) Inactive 09/18/2014 [facility] Metoprolol 5 mg, Route: IV, ON CE, Dosing Weight 79.545, kg, Start date: 09/18/14 5:09:00, Stop date: 09/18/14 5:09:00 Inactive 09/18/2014 [facility] Morphine 4 mg, Route: IVP, ONC E, Dosing Weight 79.545, kg, Start date: 09/18/14 5:08:00, Stop date: 09/18/14 5:08:00 Inactive 09/18/2014 [facility] Saline Flush 0.9% Notes: (Same as: BD Posiflush) Inactive 09/18/2014 [facility] Nitroglycerin Notes: (Same as: Nitroquick, Nitrostat) "Do Not Crush" Sublingual tablet Inactive 09/18/2014 [facility] Aspirin 325 MG Oral Tablet Not es: Take with food. Inactive 09/18/2014 [facility] Ativan 0.5 mg, Route: IVP, Bandar g form: INJ, ONCE, Dosing Weight 79.545, kg, PRN Anxiety, Start date: 09/18/14 2:14:00 Inactive 09/18/2014 [facility] Nitroglycerin 0.02 MG/MG Topical Ointment 0.5 inch, Route: TOP, Dosing Weight 79.545, kg, ONCE, Start date: 09/18/14 0:22:00, Stop date: 09/18/14 0:22:00 Inactiv e 09/18/2014 [facility] Aspirin 325 MG Oral Tablet 325 mg, Route: PO, Drug form: TAB, ONCE, Dosing Weight 79.545, kg, Priority: STAT, Start date: 09/18/14 0:10:00, Stop date: 09/18/14 0:10:00 Inactive 09/18/2014 [facility] Allergies, Adverse Reactions, Alerts Substance Category Reaction Severity Reaction type Status Date Reported Comments Source Compazine Assertion Drug allergy Active [facility] penicillins Assertion Drug allergy Active [facility] Reglan Assertion Drug allergy Active [facility] Toradol Assertion Drug allergy Active [facility] Zofran Assertion Drug allergy Active [facility] Immunizations No Data Provided for This Section Results Order Name Results Value Reference Range Date Interpretation Comments Source CARDIAC ENZYMES Total CK 63 12 - 191 04/12/2016 [facility] CARDIAC ENZYMES Troponin-I <0.02 0.00 - 0.40 04/12/2016 [facility] CARDIAC ENZYMES BNP 27 <=100 pg/mL 04/12/2016 [facility] CARDIAC ENZYMES Troponin-I <0.02 0.00 - 0.40 04/12/2016 [facility] CARDIAC ENZYMES CK MB 0.7 0.5 - 3.6 04/12/2016 [facility] CARDIAC ENZYMES Total CK 87 12 - 191 04/12/2016 [facility] CARDIAC ENZYMES CK MB Index 0.8 0.0 - 2.5 04/12/2016 [facility] CHEM PANEL Lipase Lvl 199 73 - 393 04/12/2016 [facility] CHEM [facility] eGFR 99 04/12/2016 Result Comment: The [...] should be multiplied by the estimated BMI. [facility] CHEM PANEL Creatinine Lvl 0.69 0.50 - 1.40 04/12/2016 [facility] CHEM PANEL Sodium Lvl 140 135 - 145 04/12/2016 [facility] CHEM PANEL Glucose Lvl 96 70 - 99 04/12/2016 [facility] CHEM PANEL BUN 22 7 - 22 04/12/2016 [facility] CHEM PANEL Chloride Lvl 110 95 - 109 04/12/2016 [facility] CHEM PANEL Alk Phos 87 39 - 136 04/12/2016 [facility] CHEM PANEL Potassium Lvl 4.3 3.5 - 5.1 04/12/2016 [facility] CHEM PANEL AST 21 0 - 37 04/12/2016 [facility] CHEM PANEL Bili Total 0.4 0.2 - 1.3 04/12/2016 [facility] CHEM PANEL CO2 22 24 - 32 04/12/2016 [facility] CHEM PANEL Calcium Lvl 8.8 8.5 - 10.5 04/12/2016 [facility] CHEM PANEL Total Protein 6.6 6.4 - 8.4 04/12/2016 [facility] CHEM PANEL B/C Ratio 32 6 - 25 04/12/2016 [facility] CHEM PANEL AGAP 12.3 10.0 - 20.0 04/12/2016 [facility] CHEM PANEL Globulin 3.4 2.7 - 4.2 04/12/2016 [facility] CHEM PANEL A/G Ratio 0.9 0.7 - 1.6 04/12/2016 [facility] CHEM PANEL Albumin Lvl 3.2 3.5 - 5.0 04/12/2016 [facility] CHEM PANEL ALT 24 0 - 65 04/12/2016 [facility] HEMATOLOGY PT 12.1 12.0 - 14.7 04/12/2016 [facility] HEMATOLOGY INR 0.88 0.85 - 1.17 04/12/2016 [facility] HEMATOLOGY PTT 25.1 22.9 - 35.8 04/12/2016 [facility] HEMATOLOGY Platelet 299 133 - 450 04/12/2016 [facility] HEMATOLOGY MPV 8.0 7.4 - 10.4 04/12/2016 [facility] HEMATOLOGY MCHC 34.0 32.0 - 36.0 04/12/2016 [facility] HEMATOLOGY RDW 14.9 11.5 - 14.5 04/12/2016 [facility] HEMATOLOGY MCH 31.9 27.0 - 31.0 04/12/2016 [facility] HEMATOLOGY Hct 36.7 36.0 - 48.0 04/12/2016 [facility] HEMATOLOGY MCV 93.8 80.0 - 98.0 04/12/2016 [facility] HEMATOLOGY WBC 8.8 3.7 - 10.4 04/12/2016 [facility] HEMATOLOGY Hgb 12.5 12.0 - 16.0 04/12/2016 [facility] HEMATOLOGY RBC 3.92 4.20 - 5.40 04/12/2016 [facility] HEMATOLOGY Lymphocytes # 4.7 1.0 - 5.5 04/12/2016 [facility] HEMATOLOGY Monocytes # 0.6 0.0 - 0.8 04/12/2016 [facility] HEMATOLOGY Eosinophils # 0.3 0.0 - 0.5 04/12/2016 [facility] HEMATOLOGY Basophils # 0.2 0.0 - 0.2 04/12/2016 [facility] HEMATOLOGY Segs 34.8 45.0 - 75.0 04/12/2016 [facility] HEMATOLOGY Segs-Bands # 3.1 1.5 - 8.1 04/12/2016 [facility] HEMATOLOGY Monocytes 6.9 2.0 - 12.0 04/12/2016 [facility] HEMATOLOGY Basophils 1.7 0.0 - 1.0 04/12/2016 [facility] HEMATOLOGY Lymphocytes 53.2 20.0 - 40.0 04/12/2016 [facility] HEMATOLOGY Eosinophils 3.4 0.0 - 4.0 04/12/2016 [facility] DRUG SCREEN UDS Note See Note (04/12/16 12:13 AM) 04/12/2016 [facility] DRUG SCREEN U Phencyc Scr Nega tive *NA* (04/12/16 12:13 AM) Negative 04/12/2016 [facility] DRUG SCREEN U Opiate Scr Nega tive *NA* (04/12/16 12:13 AM) Negative 04/12/2016 [facility] DRUG SCREEN U Cocaine Scr Nega tive *NA* (04/12/16 12:13 AM) Negative 04/12/2016 [facility] DRUG SCREEN U Benzodia Scr Posi tive *ABN* (04/12/16 12:13 AM) Negative 04/12/2016 [facility] DRUG SCREEN U Cannab Scr Posi tive *ABN* (04/12/16 12:13 AM) Negative 04/12/2016 [facility] DRUG SCREEN U Amph Scr Nega tive *NA* (04/12/16 12:13 AM) Negative 04/12/2016 [facility] DRUG SCREEN U Nisreen Scr Nega tive *NA* (04/12/16 12:13 AM) Negative 04/12/2016 [facility] URINE AND STOOL UA Ketones Negative mg/dL Negative mg/dL 04/12/2016 [facility] URINE AND STOOL UA Color Ltyellow 04/12/2016 [facility] URINE AND STOOL UA Urobilinogen <=1.0 mg/dL 0.1 - 1.0 04/12/2016 [facility] URINE AND STOOL UA Bili Negative *NA* (04/12/16 12:13 AM) Negative 04/12/2016 [facility] URINE AND STOOL UA Nitrite Negative (04/12/16 12:13 AM) Negative 04/12/2016 [facility] URINE AND STOOL UA Blood Negative (04/12/16 12:13 AM) Negative 04/12/2016 [facility] URINE AND STOOL UA WBC 4 0 - 5 04/12/2016 [facility] URINE AND STOOL UA Sq Epi Occasional /LPF Few /LPF 04/12/2016 [facility] URINE AND STOOL UA Leuk Est Trace *ABN* (04/12/16 12:13 AM) Negative 04/12/2016 [facility] URINE AND STOOL UA RBC 2 0 - 2 04/12/2016 [facility] URINE AND STOOL UA pH 6.0 5.0 - 8.0 04/12/2016 [facility] URINE AND STOOL UA Protein Negative mg/dL Negative mg/dL 04/12/[address] [facility] [address] URINE AND STOOL UA Glucose Negative mg/dL Negative mg/dL 04/12/[address] [facility] [address] URINE AND STOOL UA Spec Grav 1.020 <=1.030 04/12/2016 [facility] URINE AND STOOL UA Turbidity Clear (04/12/16 12:13 AM) Clear 04/12/2016 [facility] CARDIAC ENZYMES Total CK 89 12 - 191 12/08/2014 [facility] CARDIAC ENZYMES Troponin-I <0.02 0.00 - 0.40 12/08/2014 [facility] CARDIAC ENZYMES CK MB Index 1.5 0.0 - 2.5 12/08/2014 [facility] CARDIAC ENZYMES CK MB 1.3 0.5 - 3.6 12/08/2014 [facility] CHEM PANEL eGFR 99 12/08/2014 Result Comment: [...] should be multiplied by the estimated BMI. [facility] CHEM PANEL BUN 12 7 - 22 12/08/2014 [facility] CHEM PANEL Creatinine Lvl 0.7 0.5 - 1.4 12/08/2014 [facility] CHEM PANEL Glucose Lvl 130 70 - 99 12/08/2014 [facility] CHEM PANEL Chloride Lvl 110 95 - 109 12/08/2014 [facility] CHEM PANEL Potassium Lvl 4.0 3.5 - 5.1 12/08/2014 [facility] CHEM PANEL CO2 21 24 - 32 12/08/2014 [facility] CHEM PANEL Sodium Lvl 140 135 - 145 12/08/2014 [facility] CHEM PANEL Calcium Lvl 8.7 8.5 - 10.5 12/08/2014 [facility] CHEM PANEL AGAP 13.0 10.0 - 20.0 12/08/2014 [facility] Platelet 316 133 - 450 12/08/2014 [facility] RDW 16.5 11.5 - 14.5 12/08/2014 [facility] MPV 7.9 7.4 - 10.4 12/08/2014 [facility] Hct 38.0 36.0 - 48.0 12/08/2014 [facility] MCV 82.9 80.0 - 98.0 12/08/2014 [facility] MCH 27.0 27.0 - 31.0 12/08/2014 [facility] MCHC 32.6 32.0 - 36.0 12/08/2014 [facility] WBC 6.0 3.7 - 10.4 12/08/2014 [facility] RBC 4.59 4.20 - 5.40 12/08/2014 [facility] Hgb 12.4 12.0 - 16.0 12/08/2014 [facility] Lymphocytes # 2.5 1.0 - 5.5 12/08/2014 [facility] Segs-Bands # 2.5 1.5 - 8.1 12/08/2014 [facility] HEMATOLOGY Eosinophils # 0.3 0.0 - 0.5 12/08/2014 [facility] Monocytes # 0.6 0.0 - 0.8 12/08/2014 [facility] Basophils # 0.1 0.0 - 0.2 12/08/2014 [facility] Lymphocytes 42.1 20.0 - 40.0 12/08/2014 [facility] HEMATOLOGY Monocytes 10.5 2.0 - 12.0 12/08/2014 [facility] HEMATOLOGY Basophils 1.1 0.0 - 1.0 12/08/2014 [facility] HEMATOLOGY Eosinophils 4.2 0.0 - 4.0 12/08/2014 [facility] HEMATOLOGY Segs 42.1 45.0 - 75.0 12/08/2014 [facility] LIPIDS VLDL 31 12/08/2014 [facility] LIPIDS LDL (Calculated) 214 <=99 mg/dL 12/08/2014 [facility] LIPIDS HDL 43 >=61 mg/dL 12/08/2014 [facility] LIPIDS Chol 288 <=199 mg/dL 12/08/2014 [facility] LIPIDS Trig 153 <=149 mg/dL 12/08/2014 [facility] LIPIDS CHD Risk 6.70 3.90 - 5.80 12/08/2014 [facility] CARDIAC ENZYMES Troponin-I <0.02 0.00 - 0.40 12/08/2014 [facility] CHEM PANEL Lipase Lvl 64 73 - 393 12/08/2014 [facility] CARDIAC ENZYMES BNP 8 <=100 pg/mL 12/08/2014 [facility] CARDIAC ENZYMES Troponin-I <0.02 0.00 - 0.40 12/07/2014 [facility] CARDIAC ENZYMES CK MB Index 0.9 0.0 - 2.5 12/07/2014 [facility] CARDIAC ENZYMES CK MB 1.1 0.5 - 3.6 12/07/2014 [facility] CARDIAC ENZYMES Total CK 116 12 - 191 12/07/2014 [facility] CHEM PANEL Albumin Lvl 3.6 3.5 - 5.0 12/07/2014 [facility] CHEM PANEL eGFR 64 12/07/2014 Result Comment: [...] should be multiplied by the estimated BMI. [facility] CHEM PANEL Creatinine Lvl 1.0 0.5 - [...] Glucose Lvl 97 70 - 99 12/07/2014 [facility] CHEM PANEL AGAP 12.1 10.0 - 20.0 12/07/2014 [facility] CHEM PANEL CO2 25 24 - 32 12/07/2014 [facility] CHEM PANEL Alk Phos 158 39 - 136 12/07/2014 [facility] HEMATOLOGY PTT 29.0 22.9 - 35.8 12/07/2014 [facility] HEMATOLOGY PT 13.5 12.0 - 14.7 12/07/2014 [facility] HEMATOLOGY INR 1.00 0.85 - 1.17 12/07/2014 [facility] HEMATOLOGY Segs-Bands # 3.1 1.5 - 8.1 12/07/2014 [facility] HEMATOLOGY Eosinophils # 0.1 0.0 - 0.5 12/07/2014 [facility] HEMATOLOGY Monocytes # 0.6 0.0 - 0.8 12/07/2014 [facility] HEMATOLOGY Lymphocytes # 2.7 1.0 - 5.5 12/07/2014 [facility] HEMATOLOGY Basophils 0.6 0.0 - 1.0 12/07/2014 [facility] HEMATOLOGY Monocytes 9.1 2.0 - 12.0 12/07/2014 [facility] HEMATOLOGY Eosinophils 2.2 0.0 - 4.0 12/07/2014 [facility] Lymphocytes 41.1 20.0 - 40.0 12/07/2014 [facility] Segs 47.0 45.0 - 75.0 12/07/2014 [facility] MPV 8.0 7.4 - 10.4 12/07/2014 [facility] MCHC 32.5 32.0 - 36.0 12/07/2014 [facility] RDW 16.5 11.5 - 14.5 12/07/2014 [facility] Platelet 330 133 - 450 12/07/2014 [facility] Hct 38.9 36.0 - 48.0 12/07/2014 [facility] MCV 82.8 80.0 - 98.0 12/07/2014 [facility] MCH 26.9 27.0 - 31.0 12/07/2014 [facility] WBC 6.6 3.7 - 10.4 12/07/2014 [facility] RBC 4.70 4.20 - 5.40 12/07/2014 [facility] Hgb 12.6 12.0 - 16.0 12/07/2014 [facility] ELECTROLYTES AGAP 13.1 10.0 - 20.0 11/30/2014 [facility] ELECTROLYTES Glucose Lvl 106 70 - 99 11/30/2014 [facility] ELECTROLYTES BUN 18 7 - 22 11/30/2014 [facility] ELECTROLYTES CO2 24 24 - 32 11/30/2014 [facility] ELECTROLYTES Chloride Lvl 107 95 - 109 11/30/2014 [facility] ELECTROLYTES Sodium Lvl 140 135 - 145 11/30/2014 [facility] ELECTROLYTES Potassium Lvl 4.1 3.5 - 5.1 11/30/2014 [facility] ELECTROLYTES eGFR 73 11/30/2014 Result Comment: The [...] should be multiplied by the estimated BMI. [facility] ELECTROLYTES Creatinine Lvl 0.9 0.5 - 1.4 11/30/2014 [facility] ELECTROLYTES Calcium Lvl 8.6 8.5 - 10.5 11/30/2014 [facility] HEMATOLOGY Basophils # 0.3 0.0 - 0.2 11/30/2014 [facility] HEMATOLOGY Eosinophils # 0.4 0.0 - 0.5 11/30/2014 [facility] HEMATOLOGY Lymphocytes # 2.9 1.0 - 5.5 11/30/2014 [facility] HEMATOLOGY Monocytes # 0.6 0.0 - 0.8 11/30/2014 [facility] HEMATOLOGY Basophils 5.0 0.0 - 1.0 11/30/2014 [facility] HEMATOLOGY Segs-Bands # 2.0 1.5 - 8.1 11/30/2014 [facility] HEMATOLOGY Segs 32.0 45.0 - 75.0 11/30/2014 [facility] Lymphocytes 46.7 20.0 - 40.0 11/30/2014 [facility] Monocytes 10.2 2.0 - 12.0 11/30/2014 [facility] HEMATOLOGY Eosinophils 6.1 0.0 - 4.0 11/30/2014 [facility] MPV 8.0 7.4 - 10.4 11/30/2014 [facility] RDW 16.1 11.5 - 14.5 11/30/2014 [facility] Platelet 245 133 - 450 11/30/2014 [facility] MCH 28.3 27.0 - 31.0 11/30/2014 [facility] MCHC 33.8 32.0 - 36.0 11/30/2014 [facility] HEMATOLOGY MCV 83.7 80.0 - 98.0 11/30/2014 [facility] HEMATOLOGY Hct 33.9 36.0 - 48.0 11/30/2014 [facility] HEMATOLOGY RBC 4.05 4.20 - 5.40 11/30/2014 [facility] Hgb 11.5 12.0 - 16.0 11/30/2014 [facility] HEMATOLOGY WBC 6.1 3.7 - 10.4 11/30/2014 [...] should be multiplied by the estimated BMI. [facility] CHEM PANEL BUN 13 7 - 22 11/28/2014 [facility] CHEM PANEL CO2 26 24 - 32 11/28/2014 [facility] CHEM PANEL Creatinine Lvl 0.9 0.5 - 1.4 11/28/2014 [facility] CHEM PANEL Glucose Lvl 107 70 - 99 11/28/2014 [facility] CHEM PANEL Calcium Lvl 8.8 8.5 - 10.5 11/28/2014 [facility] CHEM PANEL Chloride Lvl 105 95 - 109 11/28/2014 [facility] CHEM PANEL Potassium Lvl 3.7 3.5 - 5.1 11/28/2014 [facility] CHEM PANEL Sodium Lvl 142 135 - 145 11/28/2014 [facility] CHEM PANEL AGAP 14.7 10.0 - 20.0 11/28/2014 [facility] CHEM PANEL Bili Indirect 0.3 0.0 - 1.0 11/28/2014 [facility] CHEM PANEL Bili Total 0.4 0.2 - 1.3 11/28/2014 [facility] CHEM PANEL Bili Direct 0.1 0.0 - 0.3 11/28/2014 [facility] CHEM PANEL AST 26 0 - 37 11/28/2014 [facility] CHEM PANEL Alk Phos 146 39 - 136 11/28/2014 [facility] CHEM PANEL Albumin Lvl 3.0 3.5 - 5.0 11/28/2014 [facility] CHEM PANEL A/G Ratio 1.0 0.7 - 1.6 11/28/2014 [facility] CHEM PANEL Total Protein 5.9 6.4 - 8.4 11/28/2014 [facility] CHEM PANEL Globulin 2.9 2.0 - 4.0 11/28/2014 [facility] CHEM PANEL ALT 49 0 - 65 11/28/2014 [facility] HEMATOLOGY MPV 7.7 7.4 - 10.4 11/28/2014 [facility] HEMATOLOGY Hct 36.5 36.0 - 48.0 11/28/2014 [facility] HEMATOLOGY Hgb 12.5 12.0 - 16.0 11/28/2014 [facility] HEMATOLOGY RBC 4.47 4.20 - 5.40 11/28/2014 [facility] HEMATOLOGY Platelet 285 133 - 450 11/28/2014 [facility] HEMATOLOGY RDW 16.0 11.5 - 14.5 11/28/2014 [facility] HEMATOLOGY MCHC 34.3 32.0 - 36.0 11/28/2014 [facility] HEMATOLOGY MCH 28.0 27.0 - 31.0 11/28/2014 [facility] HEMATOLOGY MCV 81.7 80.0 - 98.0 11/28/2014 [facility] HEMATOLOGY WBC 5.9 3.7 - 10.4 11/28/2014 [facility] HEMATOLOGY Monocytes 10.2 2.0 - 12.0 11/28/2014 [facility] HEMATOLOGY Lymphocytes 36.4 20.0 - 40.0 11/28/2014 [facility] HEMATOLOGY Segs 45.5 45.0 - 75.0 11/28/2014 [facility] HEMATOLOGY Basophils # 0.1 0.0 - 0.2 11/28/2014 [facility] HEMATOLOGY Eosinophils # 0.3 0.0 - 0.5 11/28/2014 [facility] HEMATOLOGY Monocytes # 0.6 0.0 - 0.8 11/28/2014 [facility] HEMATOLOGY Lymphocytes # 2.2 1.0 - 5.5 11/28/2014 [facility] HEMATOLOGY Segs-Bands # 2.7 1.5 - 8.1 11/28/2014 [facility] HEMATOLOGY Basophils 2.5 0.0 - 1.0 11/28/2014 [facility] HEMATOLOGY Eosinophils 5.4 0.0 - 4.0 11/28/2014 [facility] CHEM PANEL Lipase Lvl 107 73 - 393 11/25/2014 [facility] ELECTROLYTES Sodium Lvl 141 135 - 145 11/25/2014 [facility] ELECTROLYTES Potassium Lvl 3.5 3.5 - 5.1 11/25/2014 [facility] ELECTROLYTES Chloride Lvl 110 95 - 109 11/25/2014 [facility] ELECTROLYTES eGFR 84 11/25/2014 Result Comment: The [...] should be multiplied by the estimated BMI. [facility] ELECTROLYTES Albumin Lvl 3.1 3.5 - 5.0 11/25/2014 [facility] ELECTROLYTES Alk Phos 182 39 - 136 11/25/2014 [facility] ELECTROLYTES Bili Total 0.5 0.2 - 1.3 11/25/2014 [facility] ELECTROLYTES ALT 95 0 - 65 11/25/2014 [facility] ELECTROLYTES AST 63 0 - 37 11/25/2014 [facility] ELECTROLYTES Glucose Lvl 89 70 - 99 11/25/2014 [facility] ELECTROLYTES BUN 9 7 - 22 11/25/2014 [facility] ELECTROLYTES Creatinine Lvl 0.8 0.5 - 1.4 11/25/2014 [facility] ELECTROLYTES Total Protein 6.6 6.4 - 8.4 11/25/2014 [facility] ELECTROLYTES CO2 21 24 - 32 11/25/2014 [facility] ELECTROLYTES Calcium Lvl 8.4 8.5 - 10.5 11/25/2014 [facility] ELECTROLYTES A/G Ratio 0.9 0.7 - 1.6 11/25/2014 [facility] ELECTROLYTES AGAP 13.5 10.0 - 20.0 11/25/2014 [facility] ELECTROLYTES B/C Ratio 11 6 - 25 11/25/2014 [facility] ELECTROLYTES Globulin 3.5 2.0 - 4.0 11/25/2014 [facility] HEMATOLOGY WBC 5.9 3.7 - 10.4 11/25/2014 [facility] HEMATOLOGY MCV 82.2 80.0 - 98.0 11/25/2014 [facility] HEMATOLOGY RBC 4.42 4.20 - 5.40 11/25/2014 [facility] HEMATOLOGY Hct 36.3 36.0 - 48.0 11/25/2014 [facility] HEMATOLOGY Hgb 12.3 12.0 - 16.0 11/25/2014 [facility] HEMATOLOGY MPV 7.9 7.4 - 10.4 11/25/2014 [facility] HEMATOLOGY MCHC 33.8 32.0 - 36.0 11/25/2014 [facility] HEMATOLOGY MCH 27.8 27.0 - 31.0 11/25/2014 [facility] HEMATOLOGY Platelet 283 133 - 450 11/25/2014 [facility] HEMATOLOGY RDW 16.0 11.5 - 14.5 11/25/2014 [facility] HEMATOLOGY Lymphocytes # 3.1 1.0 - 5.5 11/25/2014 [facility] HEMATOLOGY Segs-Bands # 1.9 1.5 - 8.1 11/25/2014 [facility] HEMATOLOGY Eosinophils # 0.3 0.0 - 0.5 11/25/2014 [facility] HEMATOLOGY Basophils # 0.1 0.0 - 0.2 11/25/2014 [facility] HEMATOLOGY Monocytes # 0.4 0.0 - 0.8 11/25/2014 [facility] HEMATOLOGY Monocytes 7.1 2.0 - 12.0 11/25/2014 [facility] HEMATOLOGY Lymphocytes 53.4 20.0 - 40.0 11/25/2014 [facility] HEMATOLOGY Basophils 2.1 0.0 - 1.0 11/25/2014 [facility] HEMATOLOGY Eosinophils 4.6 0.0 - 4.0 11/25/2014 [facility] HEMATOLOGY Segs 32.8 45.0 - 75.0 11/25/2014 [facility] CHEM PANEL Magnesium Lvl 1.9 1.8 - 2.4 11/25/2014 [facility] CHEM PANEL Amylase Lvl 50 25 - 115 11/25/2014 [facility] CHEM PANEL Lipase Lvl 111 73 - 393 11/25/2014 [facility] CHEM PANEL Globulin 3.4 2.0 - 4.0 11/25/2014 [facility] CHEM PANEL B/C Ratio 12 6 - 25 11/25/2014 [facility] CHEM PANEL A/G Ratio 0.9 0.7 - 1.6 11/25/2014 [facility] CHEM PANEL Bili Total 0.6 0.2 - 1.3 11/25/2014 [facility] CHEM PANEL ALT 111 0 - 65 11/25/2014 [facility] CHEM PANEL AST 83 0 - 37 11/25/2014 [facility] CHEM PANEL Albumin Lvl 3.2 3.5 - 5.0 11/25/2014 [facility] CHEM PANEL Alk Phos 192 39 - 136 11/25/2014 [facility] CHEM PANEL Total Protein 6.6 6.4 - 8.4 11/25/2014 [facility] URINE AND STOOL UA Urobilinogen <=1.0 mg/dL 0.1 - 1.0 2014 [facility] URINE AND STOOL UA RBC 1 0 - 2 2014 [facility] URINE AND STOOL UA Mucus Few /LPF None Seen /LPF 2014 [facility] URINE AND STOOL UA Turbidity Clear (11/23/14 11:47 PM) Clear 2014 [facility] URINE AND STOOL UA Spec Grav 1.023 <=1.030 2014 [facility] URINE AND STOOL UA Color Yellow *NA* (11/23/14 11:47 PM) Yellow 2014 [facility] URINE AND STOOL UA Bili Negative *NA* (11/23/14 11:47 PM) Negative 2014 [facility] URINE AND STOOL UA Glucose Negative mg/dL Negative mg/dL 2014 [facility] URINE AND STOOL UA Ketones Negative mg/dL Negative mg/dL [address] [facility] [address] URINE AND STOOL UA Protein Negative mg/dL Negative mg/dL [address] [facility] [address] URINE AND STOOL UA pH 5.0 5.0 - 8.0 2014 [facility] URINE AND STOOL UA Sq Epi Few /LPF Few /LPF 2014 [facility] URINE AND STOOL UA WBC 12 0 - 5 2014 [facility] URINE AND STOOL UA Leuk Est Trace *ABN* (11/23/14 11:47 PM) Negative 2014 [facility] URINE AND STOOL UA Blood Negative (11/23/14 11:47 PM) Negative 2014 [facility] URINE AND STOOL UA Nitrite Negative (11/23/14 11:47 PM) Negative 2014 [facility] CARDIAC ENZYMES CK MB Index 1.0 0.0 - 2.5 2014 [facility] CARDIAC ENZYMES CK MB 0.8 0.5 - 3.6 2014 [facility] CARDIAC ENZYMES Total CK 81 12 - 191 2014 [facility] CARDIAC ENZYMES Troponin-I <0.02 0.00 - 0.40 2014 [facility] CHEM PANEL Lactic Acid Lvl 1.0 0.5 - 2.2 2014 [facility] CHEM PANEL Lipase Lvl 479 73 - 393 2014 [facility] CHEM PANEL Amylase Lvl 86 25 - 115 2014 [facility] HEMATOLOGY INR 0.91 0.85 - 1.17 11/23/2014 [facility] HEMATOLOGY PT 12.2 12.0 - 14.7 11/23/2014 [facility] HEMATOLOGY PTT 29.7 22.9 - 35.8 11/23/2014 [facility] CARDIAC ENZYMES BNP 9 <=100 pg/mL 11/23/2014 [facility] CARDIAC ENZYMES Troponin-I <0.02 0.00 - 0.40 11/23/2014 [facility] CARDIAC ENZYMES Total CK 77 12 - 191 11/23/2014 [facility] CARDIAC ENZYMES CK MB 0.9 0.5 - 3.6 11/23/2014 [facility] CARDIAC ENZYMES CK MB Index 1.2 0.0 - 2.5 11/23/2014 [facility] CHEM PANEL Magnesium Lvl 1.7 1.8 - 2.4 11/23/2014 [facility] CHEM PANEL B/C Ratio 19 6 - 25 11/23/2014 [facility] CARDIAC ENZYMES Total CK 67 12 - 191 09/18/2014 [facility] CARDIAC ENZYMES Troponin-I <0.02 0.00 - 0.40 09/18/2014 [facility] CARDIAC ENZYMES Total CK 62 12 - 191 09/18/2014 [facility] CARDIAC ENZYMES Troponin-I <0.02 0.00 - 0.40 09/18/2014 [facility] LIPIDS VLDL 29 09/18/2014 [facility] LIPIDS LDL (Calculated) 140 <=99 mg/dL 09/18/2014 [facility] LIPIDS Trig 147 <=149 mg/dL 09/18/2014 [facility] LIPIDS CHD Risk 3.86 3.90 - 5.80 09/18/2014 [facility] LIPIDS Chol 228 <=199 mg/dL 09/18/2014 [facility] LIPIDS HDL 59 >=61 mg/dL 09/18/2014 [facility] CARDIAC ENZYMES Troponin-I <0.02 0.00 - 0.40 09/18/2014 [facility] CARDIAC ENZYMES Total CK 59 12 - 191 09/18/2014 [facility] CHEM PANEL eGFR 85 09/18/2014 <sup>1</sup>Result Comment: [...] values reflect the clinical guidelines
of the [employer]. [facility] CHEM PANEL Globulin 3.2 2.0 - 4.0 09/18/2014 [facility] CHEM PANEL B/C Ratio 22 6 - 25 09/18/2014 [facility] CHEM PANEL AGAP 10.6 10.0 - 20.0 09/18/2014 [facility] CHEM PANEL A/G Ratio 1.1 0.7 - 1.6 09/18/2014 [facility] PTT 28.8 22.9 - 35.8 09/18/2014 <sup>4</sup>Interpretive Data: Heparin T herapeutic Range: 57 - 92 [facility] PT 12.5 12.0 - 14.7 09/18/2014 [facility] INR 0.94 0.85 - 1.17 09/18/2014 <sup>3</sup>Interpretive Data: RECOMMEND ED RANGES FOR PROTIME INR:
2.0- 3.0 for most medical and surgical thromboembolic states.
2.5-3.5 for artificial heart valves and recurrent embolism.

INR SHOULD BE USED ONLY FOR PATIENTS ON STABLE ANTICOAGULANT THERAPY. [facility] MPV 7.4 7.4 - 10.4 09/18/2014 [facility] MCHC 34.1 32.0 - 36.0 09/18/2014 [facility] RDW 16.8 11.5 - 14.5 09/18/2014 [facility] Platelet 353 133 - 450 09/18/2014 [facility] Hgb 11.4 12.0 - 16.0 09/18/2014 [facility] MCV 83.0 80.0 - 98.0 09/18/2014 [facility] MCH 28.3 27.0 - 31.0 09/18/2014 [facility] Hct 33.4 36.0 - 48.0 09/18/2014 [facility] RBC 4.03 4.20 - 5.40 09/18/2014 [facility] WBC 7.0 3.7 - 10.4 09/18/2014 [facility] Lymphocytes # 3.7 1.0 - 5.5 09/18/2014 [facility] Monocytes # 0.6 0.0 - 0.8 09/18/2014 [facility] Eosinophils # 0.1 0.0 - 0.5 09/18/2014 [facility] Lymphocytes 52.2 20.0 - 40.0 09/18/2014 [facility] Basophils 0.2 0.0 - 1.0 09/18/2014 [facility] HEMATOLOGY Eosinophils 1.8 0.0 - 4.0 09/18/2014 [facility] HEMATOLOGY Segs-Bands # 2.6 1.5 - 8.1 09/18/2014 [facility] HEMATOLOGY Monocytes 8.1 2.0 - 12.0 09/18/2014 [facility] HEMATOLOGY Segs 37.7 45.0 - 75.0 09/18/2014 [facility] Pathology Reports No Data Provided for This [...] 1. Unremarkable chest x-ray. SL: RAY 04/11/2016 [facility] Pulmonary Embolism CTA ADDENDUM: TECHNIQUE: Thin collimation axial images of the pulmonary arteries and routine CT chest with IV contrast. 2-D and 3-D reformatted images were performed for further evaluation. SL: 12 Dictated on: 01/16/2015 7:59:50AM Interpreted by: MD Issa Joseph V Transcribed by: [employer] 01/16/2015 7:59:50AM Signed by: MD Issa Joseph [...] effus ion, or pneumothorax. SL: 12 12/07/2014 [facility] Chest 1view DX EXAMINATION: est 1view CLINICAL [...] focal osseous lesion is appreciated. SL:17 12/07/2014 [facility] Cardiac SPECT multi studies NM PROCEDURE: Stress [...] study. Normal resting LV function. [place] [facility] [place] [facility] Abdomen/Pelvis w IV contrast CT PROCEDURE: Abdomen/Pelvis [...] prior cholecystectomy. Coding: Chest 1view CPT code: 12644 SL: 13 Amarjit Sanchez M.D. 11/23/2014 [facility] Chest 2 views DX EXAM: Chest 2 views HISTORY: Chest pain. COMPARISON: None. TECHNIQUE: Frontal and lateral views of the chest. FINDINGS: The lungs are well-inflated. No pneumonia, edema or pleural effusion. Heart size normal. Coronary artery stents. IMPRESSION: No acute findings in the chest. SL: 12 09/17/2014 [facility] Consultation Notes No Data Provided for This Section Discharge Summaries No Data Provided for This Section History and Physicals No Data Provided for This Section Vital Signs Vital Sign Value Date Comments Source Heart Rate 79 04/13/2016 [facility] Temperature Oral (F) 98.7 F 04/13/2016 [facility] Systolic (mm Hg) 130 04/13/2016 [facility] Diastolic (mm Hg) 82 04/13/2016 [facility] Respitory Rate 18 04/13/2016 [facility] Systolic (mm Hg) 128 04/13/2016 [facility] Diastolic (mm Hg) 86 04/13/2016 [facility] Temperature Oral (F) 98.7 F 04/13/2016 [facility] Respitory Rate 18 04/13/2016 [facility] Heart Rate 87 04/13/2016 [facility] Weight 75 0 04/13/2016 [facility] Height 177.8 cm 04/13/2016 [facility] BMI Calculated 23.72 04/13/2016 [facility] Systolic (mm Hg) 112 04/13/2016 [facility] Diastolic (mm Hg) 81 04/13/2016 [facility] Temperature Oral (F) 98.0 F 04/13/2016 [facility] Heart Rate 79 04/13/2016 [facility] Respitory Rate 18 04/13/2016 [facility] Weight 75 0 04/12/2016 [facility] BMI Calculated 23.72 04/12/2016 [facility] Height 177.8 cm 04/12/2016 [facility] Height 160.02 cm 04/12/2016 [facility] BMI Calculated 28.4 04/12/2016 [facility] Weight 72.727 04/12/2016 [facility] Weight 70.455 03/31/2016 [facility] Height 160.02 cm 03/31/2016 [facility] Systolic (mm Hg) 160 03/31/2016 [facility] Diastolic (mm Hg) 116 03/31/2016 [facility] Temperature Oral (F) 97.9 F 03/31/2016 [facility] Respitory Rate 18 03/31/2016 [facility] Heart Rate 99 03/31/2016 [facility] BMI Calculated 27.51 03/31/2016 [facility] Temperature Oral (F) 98.2 F 03/27/2016 [facility] Respitory Rate 16 03/27/2016 [facility] Heart Rate 92 03/27/2016 [facility] Systolic (mm Hg) 164 03/27/2016 [facility] Diastolic (mm Hg) 102 03/27/2016 [facility] Weight 72.727 03/27/2016 [facility] BMI Calculated 28.4 03/27/2016 [facility] Height 160.02 cm 03/27/2016 [facility] Respitory Rate 18 03/27/2016 [facility] Heart Rate 103 03/27/2016 [facility] Systolic (mm Hg) 142 03/27/2016 [facility] Diastolic (mm Hg) 103 03/27/2016 [facility] Temperature Oral (F) 98.3 F 03/27/2016 [facility] Respitory Rate 20 12/08/2014 [facility] Systolic (mm Hg) 139 12/08/2014 [facility] Diastolic (mm Hg) 89 12/08/2014 [facility] Weight 81.818 12/08/2014 [facility] Systolic (mm Hg) 121 12/08/2014 [facility] Diastolic (mm Hg) 84 12/08/2014 [facility] Respitory Rate 20 12/08/2014 [facility] Temperature Oral (F) 97.4 F 12/08/2014 [facility] Heart Rate 84 12/08/2014 [facility] Height 160.02 cm 12/08/2014 [facility] Weight 81.818 12/08/2014 [facility] BMI Calculated 31.95 12/08/2014 [facility] Temperature Oral (F) 97.5 F 12/08/2014 [facility] Heart Rate 95 12/08/2014 [facility] Systolic (mm Hg) 159 12/08/2014 [facility] Diastolic (mm Hg) 96 12/08/2014 [facility] Respitory Rate 20 12/08/2014 [facility] Temperature Oral (F) 97.7 F 12/08/2014 [facility] Weight 77.273 12/07/2014 [facility] BMI Calculated 30.18 12/07/2014 [facility] Height 160.02 cm 12/07/2014 [facility] Heart Rate 130 12/07/2014 [facility] Temperature Oral (F) 97.9 F 12/01/2014 [facility] Respitory Rate 15 12/01/2014 [facility] Systolic (mm Hg) 114 12/01/2014 [facility] Diastolic (mm Hg) 73 12/01/2014 [facility] Heart Rate 70 12/01/2014 [facility] Systolic (mm Hg) 121 12/01/2014 [facility] Diastolic (mm Hg) 84 12/01/2014 [facility] Respitory Rate 16 12/01/2014 [facility] Systolic (mm Hg) 155 12/01/2014 [facility] Diastolic (mm Hg) 101 12/01/2014 [facility] Heart Rate 81 12/01/2014 [facility] Temperature Oral (F) 98.1 F 12/01/2014 [facility] Respitory Rate 18 12/01/2014 [facility] Temperature Oral (F) 97.5 F 12/01/2014 [facility] Heart Rate 81 12/01/2014 [facility] Weight 81.818 11/26/2014 [facility] Height 160.02 cm 11/23/2014 [facility] Weight 81.818 11/23/2014 [facility] BMI Calculated 31.95 11/23/2014 [facility] Heart Rate 76 09/18/2014 [facility] Systolic (mm Hg) 120 09/18/2014 [facility] Diastolic (mm Hg) 77 09/18/2014 [facility] Temperature Oral (F) 97.9 F 09/18/2014 [facility] Respitory Rate 16 09/18/2014 [facility] Weight 79.545 09/18/2014 [facility] Height 160.02 cm 09/18/2014 [facility] BMI Calculated 31.06 09/18/2014 [facility] Heart Rate 91 09/18/2014 [facility] Respitory Rate 14 09/18/2014 [facility] Systolic (mm Hg) 166 09/18/2014 [facility] Diastolic (mm Hg) 116 09/18/2014 [facility] Temperature Oral (F) 98.3 F 09/18/2014 [facility] Temperature Oral (F) 98.0 F 09/18/2014 [facility] Systolic (mm Hg) 153 09/18/2014 [facility] Diastolic (mm Hg) 99 09/18/2014 [facility] Heart Rate 90 09/18/2014 [facility] Respitory Rate 18 09/18/2014 [facility] Height 160.02 cm 09/18/2014 [facility] BMI Calculated 31.06 09/18/2014 [facility] Weight 79.545 09/18/2014 [facility] Encounters Location Location Details Encounter Type Encounter Number Reason For Visit Attending Provider ADM Date DC Date Status Source [facility] OBS Observation Patient [id number] Ruddy Amato 09/17/2014 09/18/[address] [facility] Inpatient [id number] Chevy Callaway 11/23/2014 12/01/[address] [facility] OBS Observation Patient [id number] Liliana Lyles 12/07/2014 12/08/[address] [facility] Emergency [id number] Lokesh Aguilera 03/27/2016 03/27/[address] [facility] Emergency [id number] Rosa Lam 03/31/2016 03/31/[address] [facility] Observation [id number] Jenna Ceja 04/12/2016 04/13/2016 [facility] Procedures Procedure Code Date Perfomer Comments Source Hysterectomy [id number] [facility] st Procedure on back [id number] [facility] Thyroidectomy [id number] [facility] st CABG x 1 - Coronary artery bypass graft x 1<sup>1</sup > [id number] may 2015 [facility] Stent placement [id number] [facility] Cholecystectomy [id number] [facility] Assessment and Plan Assessment and Plan Date Source Extracted from:Title: Clinical Document Author: Gaurav Russo MD Date: 04/13/16 Progress Note Cardiology [facility] Impression: Atypical chest pain. Severe [...] PO QID-Before Meals Continuous Infusions: None 04/13/2016 [facility] No Data Provided for This Section Social [...] stop now that has a job. 2014 [facility] Family History No Data Provided for This Section Advance Directives No Data Provided for This Section Functional Status No Data Provided for This Section
--- OUTSIDE RECORDS SUMMARY | 2019-11-20 15:05 | XMS REPORT | Continuity of Care Document ---
Author Author [facility] t Organization [facility] Address [address] [place] [address] Phone Unavailable Care Team Providers Care House Nurse Name Role Phone NONSTAFF PCP Unavailable Oumou HASTINGS Attphys Unavailable ANTELMO HEART Attphys Unavailable WHITLEY WHEELER Attphys Unavailable Mougouris, Taso Attphys Rosa Lam Attphys Enrique Aguilera Attphys Rafal, Dc Adnan Attphys CesiaBlake Chevy Attphys Al-Sandoval Billam Attphys ANTELMO HEART Admphys Unavailable DOLLY GALINDO Admphys Unavailable Mougouris, Taso Admphys Rafal, Dc Adnan Admphys CesiaGreggBlake Chevy Admphys Al-Azzejohnathan Sandoval Haytham Admphys Payers Payer Name Policy Type Policy Number Effective Date Expiration Date Errol whitley [facility] Employees [id number] 2016 00:00:0 0 [facility] Problems Condition Name Condition Details Condition Category Status Onset Date Resolution Date Last Treatment Date Treating Clinician Comments Source Acute chest pain Acute chest pain Disease Active 2016-05-30 00:00:00 [facility] MOUTH PAIN MOUT H PAIN Active 03/27/2016 [facility] Diagnosis Active 2016-03-27 00:00:00 2016-03-27 10:51:00 [facility] ACUTE CHEST PAIN. GASTRP ARESOS ACUTE CHEST PAIN. GASTRP ARESOS Active 04/11/2015 [facility] Active 2015-04-11 16:00: 00 2016-04-12 02:19:00 [facility] ACUTE CHEST PAIN GASTRPARESIS ACUTE CHEST PAIN GASTRPARESIS Active 04/11/2015 [facility] Diagnosis Active 04-11 16:00:00 2016-04-16 15:47:00 [facility] CHEST PAIN CHES T PAIN Active 12/07/2014 [facility] Active 2014-12-07 00:00:00 2016-08-13 10:57:00 [facility] ACUTE CHEST PAIN, RULE OUT ACS ACUTE CHEST PAIN, RULE OUT ACS Active 11/23/2014 [facility] Diagnosis Active 2014-11-23 00:00 :00 2016-05-08 18:50:00 [facility] Chest pain Problem Active 2014-08-04 00:00:00 [facility] Hypertension Problem Active 2014-08-04 00:00:00 [facility] Acute coronary syndrome Problem Active 2014-05-30 00:00:00 [facility] Unstable angina pectoris Problem Active 2014-05-30 00:00:00 [facility] Hypertensive crisis Problem Active 2014-05-30 00:00:00 [facility] Dyspnea Problem Active [facility] Nausea Problem Active [facility] Myocardial infarction (disorder) Myocardial infarction (disorder) Resolved Problem 04/16/2016 3 [facility] Problem Resolved 2016-04-16 03:18:48 [facility] 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) Brain injury wit hout open intracranial wound AND with no loss of consciousness (disorder) Resolved Problem 04/16/2016 from a ffall 10 months ago [facility] Problem Resolved 2016 03:18:48 [facility] Congestive heart failure (disorder) Congestive heart failure (disorder) Active Problem 04/16/2016 [facility] Problem Active 2016-04-16 03:18:48 [facility] CHEST PAIN NOS CHES T PAIN NOS Active [facility] Active 2016-05-08 18:50:00 [facility] CHEST PAIN, UNSPECIFIED CHES T PAIN, UNSPECIFIED Active [facility] Active 2016-04-16 15:47:00 [facility] GASTROPARESIS SLIME ROPARESIS Active [facility] Active 2016-04-16 15:47:00 [facility] Discharge Diagnosis: Dental caries, unspecified Discharge Diagnosis: Dental caries, unspecified 03/27/2016 03/30/2016 [facility] Problem 2016-03-27 06:00:00 2016-03-30 04:00:14 2016-03 04:00:14 [facility] Discharge Diagnosis: Other specified dis orders of teeth and supporting structures Discharge Diagno sis: Other specified disorders of teeth and supporting structures 03/27/2016 03/30/2016 [facility] Problem 2016-03-27 06:00:00 2016-03-30 04:00:14 2016-03-30 04:00:14 [facility] Discharge Diagnosis: Periapical abscess without sinus Discharge Diagnosis: Periapical abscess without sinus 03/27/2016 03/30/2016 [facility] Problem 2016-03-27 06:00:00 2016-03-30 04:00:14 2016-03 04:00:14 [facility] Allergies, Adverse Reactions, Alerts Allergy Name Allergy Type Status Severity Reaction(s) Onset Date Inacti ve Date Treating Clinician Comments Source prochlorperazine edisylate DA Active SV 2019-10-03 00:00:0 0 [facility] metoclopramide HCl DA Active SV 2019-10-03 00:00:00 [facility] Iodinated Contrast Media DA Active MO 2019-10-03 00:00:00 [facility] ketorolac DA Active SV 2019-10-03 00:00:00 [facility] penicillin G DA Active SV 2019-10-03 00:00:00 [facility] Iodine And Iodide Containing Products Propensity to adverse reactio ns Active 2016-06-03 00:00:00 [facility] Dye Drug Allergy Active Itching, Swelling, Rash 2016-05-31 00:0 0:00 [facility] Prochlorperazine Propensity to adverse reactions Active Rash 2016-05-30 00:00:00 [facility] Penicillins Propensity to adverse reactions Active Swe lling 2016-05-30 00:00:00 [facility] Metoclopramide Hcl Propensity to adverse reactions Active 2016-05-30 00:00:00 jittery [facility] Ketorolac Propensity to adverse reactions Active [facility] Ondans[facility]ron Hcl (Pf) Propensity to adverse reactions Active Rash 2016-05-30 00:00:00 [facility] prochlorperazine edisylate DA Active 2016-04-27 00:00:0 0 [facility] metoclopramide HCl DA Active SV 2016-04-27 00:00:00 [facility] morphine DA Active MO 2016-04-27 00:00:00 [facility] ondansetron DA Active U 2016-04-27 00:00:00 [facility] ketorolac DA Active SV 2016-04-27 00:00:00 [facility] penicillin G DA Active SV 2016-04-27 00:00:00 [facility] Penicillin Allergy to substance Active Severe THROAT SWELLING 2016-03-11 00:00:00 [facility] prochlorperazine edisylate Allergy to substance Active Mild RASH 2011-08-02 00:00:00 [facility] prochlorperazine maleate Allergy to substance Active Mild R ROC 2011-08-02 00:00:00 [facility] metoclopramide HCl Allergy to substance Active Mild JERKY 00:00:00 [facility] ketorolac tromethamine Allergy to substance Active Mild AYUSH H 2011-08-02 00:00:00 [facility] Compazine Compazine Active [facility] riahussein [facility] penicillins penicillins Active [facility] Reglan Reglan Active [facility] ermann Toradol Toradol Active [facility] Zofran Zofran Active [facility] Social History Social Habit Start Date Stop Date Quantity Comments Source Sex Assigned At [facility] Alcohol Comment 2016-05-30 00:00:00 2016-05-30 00:00:00 two times brice rodriguez [facility] Social History 2014 05:40:48 2014 05:40:48 [facility] Smoking Status Start Date Stop Date Source Former smoker 2016-06-08 00:00:00 2016-06-08 00:00:00 [facility] Medications Ordered Medication Name Filled Medication Name Start Date Stop Da te Current Medication? Ordering Clinician Indication Dosage Frequency Signature (SIG) Comments Components Source Cefuroxime Axetil (Cefuroxime) 250 Mg TABLET Cefuroxim e Axetil (Cefuroxime) 250 Mg TABLET 2019-09-29 08:21:00 Yes 250 Every 12 Hours [facility] Amlodipine Besylate (Norvasc) 5 Mg TAB Amlodipine Besylate ( Norvasc) 5 Mg TAB 2019-09-29 08:20:00 Yes 5 Daily [facility] Docusate Sodium (Colace) 100 Mg CAP Docusate Sodium (Colace) 100 Mg CAP 2019-09-29 08:20:00 Yes 100 Every 12 Hours [facility] Lactulose Lactulose 2019-09-29 08:20:00 Yes 20 Twice A Day as needed for Constipation [facility] Magnesium Hydroxide (Milk Of Magnesia) 2,400 Mg/10 Ml ORAL.SUSP Magnesium Hydroxide (Milk Of Magnesia) 2,400 Mg/10 Ml ORAL.SUSP 2019-09-29 08:20:00 Yes 30 Bedtime [facility] Ondansetron Hcl (Zofran*) 4 Mg TABLET Ondansetron Hcl (Zofra n*) 4 Mg TABLET 2019-09-29 08:20:00 Yes 4 Every 4 Hour s as needed for Nausea/Vomiting [facility] Sennosides (Senna Laxative) 8.6 Mg TABLET Sennosides ( Senna Laxative) 8.6 Mg TABLET 2019-09-29 08:20:00 Yes 8.6 Every 12 Hours [facility] Aspirin (Aspirin Ec) 81 Mg TABLET. Aspirin (Aspirin Ec) 81 Mg TABLET.DR 2019-09-06 10:47:00 Yes 81 Every Morning [facility] Atorvastatin Atorvastatin 2019-09-06 10:47:00 Yes 80 Bedtime [facility] Docusate Sodium (Colace) 100 Mg CAP Docusate Sodium (Colace) 100 Mg CAP 2019-09-06 10:47:00 Yes 100 Twice A Day as nee ded for Constipation [facility] Metoprolol Succinate (Toprol Xl) 25 Mg TAB.ER.24H Meto prolol Succinate (Toprol Xl) 25 Mg TAB.ER.24H 2019-09-06 10:47:00 Yes 12.5 Ally ly [facility] Sennosides (Senna Lax) 8.6 Mg TABLET Sennosides (Senna Lax) 8.6 Mg TABLET 2019-09-06 10:47:00 Yes 8.6 Twice A Day as nee ded for Constipation [facility] Tramadol Hcl (Ultram 50MG*) 50 Mg TAB Tramadol Hcl (Ultram 5 0MG*) 50 Mg TAB 2019-09-06 10:47:00 Yes 50 Every 8 Hours as n eeded for Pain [facility] traMADol (ULTRAM) 50 mg tablet 2016-06-04 00:00:00 Yes 100mg [id number] Take 2 tablets (100 mg total) by mouth 3 (three) times daily. Max Daily Amount: 300 mg [facility] levothyroxine (SYNTHROID, LEVOTHROID) 175 MCG tablet 2 20:58:00 Yes 175ug Take 175 mcg by mouth Every morning on a n empty stomach. [facility] temazepam (RESTORIL) 30 mg capsule 2016-05-30 17:05:25 Yes 30mg Take 30 mg by mouth every night as needed for Sleep. [facility] HYDROcodone-acetaminophen (NORCO 10-325) 10-325 mg per table t 2016-05-30 17:04:01 Yes 1{tbl} Take 1 tab let by mouth every 6 (six) hours as needed for Pain. [facility] lisinopril (PRINIVIL,ZESTRIL) 10 MG tablet 2016-05-30 17:03:47 Yes 10mg QD Take 10 mg by mouth daily. [facility] atorvastatin (LIPITOR) 80 MG tablet 2016-05-30 17:03:47 Yes 80mg QD Take 80 mg by mouth daily. [facility] diazePAM (VALIUM) 5 MG tablet 2016-05-30 17:03:47 Yes 5mg Take 5 mg by mouth every 6 (six) hours as needed for Anxiety. [facility] amLODIPine (NORVASC) 10 MG tablet 2016-05-30 17:03:46 Yes 10mg QD Take 10 mg by mouth daily. [facility] pantoprazole (PROTONIX) 40 MG tablet 2016-05-30 17:03:46 Ye s 40mg QD Take 40 mg by mouth daily. [facility] clopidogrel (PLAVIX) 75 mg tablet 2016-05-30 17:02:35 Yes 75mg QD Take 75 mg by mouth daily. [facility] cloNIDine HCl (CATAPRES) 0.1 MG tablet 2016-05-30 17:02:35 Yes .1mg Take 0.1 mg by mouth as needed. [facility] Ondansetron (Zofran Odt) 4 Mg TAB.RAPDIS Ondansetron ( Zofran Odt) 4 Mg TAB.RAPDIS 2016-05-22 12:46:00 Yes 4 Q4-6H Prn [facility] Pantoprazole Sodium (Protonix) 40 Mg TABLET.DR Garza azole Sodium (Protonix) 40 Mg TABLET. 2016-05-22 12:46:00 Yes 40 Daily [facility] Metronidazole (Flagyl) 500 Mg TABLET Metronidazole (Flagyl) 500 Mg TABLET 2016-05-22 12:46:00 2019-08-31 00:00:00 No 500 Three Times A Day [facility] Tylenol 2016-04-13 21:09:00 Yes Notes: Max acetaminophen = 4000mg/day (4 gm/day). (Same as: Tylenol) [facility] Acetaminophen 300 MG / Codeine Phosphate 30 MG Oral Tablet [Tylenol with Codeine #3] 2016-04-13 21:06:00 No 1 - 2 tab, PO, Q4H, PRN Pain, X 2 day, # 20 tab, 0 Refill(s) [facility] atorvastatin 40 mg oral tablet 2016-04-13 21:06:00 Yes 80 mg = 2 tab, PO, Bedtime, # 60 tab, 0 Refill(s) [facility] Morphine 2016-04-12 23:07:00 No Not es: (Same as:MORPhine Sulfate) [facility] pantoprazole 2016-04-12 22:30:00 No Notes: Tablet should not be chewed or crushed. (Same as: Protonix) [facility] 2016-04-12 18:11:00 No Not es: (Same as:MORPhine Sulfate) [facility] atorvastatin 2016-04-12 17:21:00 No Notes: (Same as: Lipitor) [facility] metoprolol tartrate 2016-04-12 15:00:00 No Notes: (Same as: Toprol XL) May split tab, but do not crush. [facility] Lisinopril 2016-04-12 15:00:00 No Notes: (Same as: Prinivil, Zestril) [facility] Plavix 2016-04-12 15:00:00 No Notes: (Same As: Plavix) [facility] Norvasc 2016-04-12 15:00:00 No Notes: (Same as: Norvasc) [facility] Saline Flush 0.9% 2016-04-12 15:00:00 No Notes: (Same as: BD Posiflush) [facility] heparin 2016-04-12 14:00:00 No Notes: porci ne heparin [facility] Sucralfate 100 MG/ML Oral Suspension [...] Hydrocodone Bitartrate 5 MG Oral Tabl et [Hamilton 5/325] 2016-04-12 10:39:00 No Notes: (Same as: Hamilton 325/5) Do not exceed 4gm/day of acetaminophen. Jacob Jodie nn Ativan 2016-04-12 10:15:00 No Notes: (Same as: Ativan) [facility] Herediaann Morphine 2016-04-12 10:14:00 No Not es: (Same as:MORPhine Sulfate) [facility] 24 HR tramadol hydrochloride 100 MG Extended Release Tablet 2016-04-12 10:04:00 Yes 100 mg = 1 tab, PO, Q4H, 0 Re fill(s) [facility] Herediaann Amlodipine 10 MG Oral Tablet [Norvasc] 2016-04-12 10:04:00 Yes See Instructions, 1 tab PO Daily, 0 Refill(s) [facility]rediaann Saline Flush 0.9% 2016-04-12 09:31:00 No Notes: (Same as: BD Posiflush) [facility]iaann Morphine 2016-04-12 09:31:00 No Not es: (Same as:MORPhine Sulfate) [facility]rediaann Nitroglycerin 2016-04-12 09:31:00 No Notes: (Same as:Nitroquick, Nitrostat) "Do Not Crush" Sublingual tablet [facility] Ativan 2016-04-12 07:56:00 No 0.5 mg, Route: IVP, Drug form: INJ, ONCE, Dosing Weight 72.727, kg, Priority: STAT, Start date: 04/12/16 1:56:00 ENERGY ADMINISTRATOR, Stop date: 04/12/16 1:56:00 ENERGY ADMINISTRATOR [facility] orial [facility] Morphine 2016-04-12 04:34:00 No Not es: (Same as:MORPhine Sulfate) Jacob Plascencia Nitroglycerin 2016-04-12 04:31:00 No Notes: (Same as:Nitroquick, Nitrostat) "Do Not Crush" Sublingual tablet [facility] [place] Famotidine 2016-04-12 03:47:00 No Notes: (Same as: Pepcid) Can be dilute in 5-10cc NS IVP: Slow IV push over at least 2 minutes. [facility] Saline Flush 0.9% 2016-04-12 03:47:00 No Notes: Same as: BD Posiflush Sterile [facility] Acetaminophen 300 MG / Codeine Phosphate 30 MG Oral Tablet [Tylenol with Codeine #3] 2016-03-27 16:39:00 Yes 1 - 2 tab, PO, Q4H, PRN Pain, X 3 day, # 20 tab, 0 Refill(s) [facility] Clindamycin 300 MG Oral Capsule [Cleocin] 2016-03-27 16:38:00 Yes 300 mg = 1 cap, PO, QID, X 10 day, # 40 cap, 0 Refill(s) [facility] [place] Dilaudid 2016-03-27 16:29:00 No 0.5 mg, 0.5 mL, Route: IM, Drug form: INJ, ONCE, Dosing Weight 72.727, kg, Priority: STAT, Start date: 03/27/16 10:29:00 ENERGY ADMINISTRATOR, Stop date: 03/27/16 10:29:00 ENERGY ADMINISTRATOR [facility] Acetaminophen 325 MG / Hydrocodone Bitartrate 10 MG Or al Tablet [Hamilton 10/325] 2016-03-27 16:26:00 No 1 ta b, Route: PO, Drug Form: TAB, Dosing Weight 72.727, kg, ONCE, STAT, Start date: 03/27/16 10:26:00 ENERGY ADMINISTRATOR, Stop date: 03/27/16 10:26:00 ENERGY ADMINISTRATOR [facility] Clindamycin 2016-03-27 16:25:00 No Notes: (clindamycin 150 mg/1 ml (600 mg/4 ml VL) INJ) (Same As: Cleocin) Jacob Plascencia Thyroxine 2014-12-09 14:00:00 No Notes: Take 1 hour before or 2 hours after meal; Enteral feeds may interefere with the absorption of this medication. (Same as: Levothroid) Srikanth townsend [facility] Plavix 2014-12-09 14:00:00 No Notes: (Same As: Plavix) Jacob Plascencia 24 HR Metoprolol Tartrate 50 MG Extended Release Tablet [Top rol] 2014-12-09 14:00:00 No Notes: (Sa me as: Toprol XL) May split tab, but do not crush. [facility] Lisinopril 2014-12-08 22:00:00 No Notes: (Same as: Prinivil, Zestril) [facility] pantoprazole 2014-12-08 21:30:00 No Notes: Tablet should not be chewed or crushed. (Same as: Protonix) Saleem Plascencia Sucralfate 100 MG/ML Oral Suspension [Carafate] 2014-12-08 18:00 :00 No Notes: Enteral feeds may int erfere with the absorption of this medication. Shake well. Take 1 hr before or 2 hrs after antacids, dairy pdt, minerals & meals. (Same As: Carafate) [facility] oneal Erythromycin 250 MG Enteric Coated Tablet 2014-12-08 17:00:00 No Notes: (Same as: Brenton-Tab) Give With Food "Do Not Crush" [facility] [place] Sucralfate 100 MG/ML Oral Suspension [Carafate] 2014-12-08 16:49 :00 Yes 1 gm = 10 ml, PO, QID-Before Meals, # 1200 mL, 0 Refil l(s) [facility] tramadol hydrochloride 50 MG Oral Tablet 2014-12-08 16:49:00 Yes 50 mg = 1 tab, PO, Q6H, PRN Pain, # 30 tab, 0 Refill(s) [facility] [place] Aspirin 325 MG Oral Tablet 2014-12-08 16:39:00 No Notes: Take with food. [facility] [place] Hyoscyamine 2014-12-08 16:30:00 No Notes: (Same as: Levsin) Take 30 min before meal [facility] Valium 2014-12-08 16:16:00 No Notes: (Same as: Valium) [facility] Clonidine Hydrochloride 0.1 MG Oral Tablet 2014-12-08 16:16:00 No Notes: (Same As: Catapres) [facility] carlos Diazepam 10 MG Oral Tablet [Valium] 2014-12-08 09:35:00 Yes 10 mg = 1 tab, PO, TID, PRN Anxiety, 0 Refill(s) [facility] Temazepam 30 MG Oral Capsule [Restoril] 2014-12-08 09:35:00 Yes 30 mg = 1 cap, PO, Bedtime, PRN Sleep, 0 Refill(s) [facility] clopidogrel 75 MG Oral Tablet [Plavix] 2014-12-08 09:35:00 Yes 75 mg = 1 tab, PO, Daily, # 30 tab, 0 Refill(s) [facility] tramadol hydrochloride 50 MG Oral Tablet 2014-12-08 09:35:00 No 50 mg = 1 tab, PO, Q6H, PRN Pain, 0 Refill(s) [facility] promethazine 25 mg oral tablet 2014-12-08 09:35:00 Yes 25 mg = 1 tab, PO, Q4H, PRN Nausea/Vomiting, 0 Refill(s) [facility] pantoprazole 40 mg oral enteric coated tablet 2014-12-08 09:35:0 0 Yes 40 mg = 1 tab, PO, Before Dinner, 0 Refill(s) [facility] metoprolol 50 mg oral tablet, extended release 2014-12-08 09:35: 00 Yes 50 mg = 1 tab, PO, BID, 0 Refill(s) [facility] lisinopril 20 mg oral tablet 2014-12-08 09:35:00 Yes 20 mg = 1 tab, PO, BID, # 60 tab, 0 Refill(s) [facility] levothyroxine 200 mcg (0.2 mg) oral tablet 2014-12-08 09:35:00 Yes 200 microgram = 1 tab, PO, Daily, # 30 tab, 0 Refill(s) [facility] hyoscyamine 0.125 mg sublingual tablet 2014-12-08 09:35:00 Yes 0.125 mg = 1 tab, SL, Before Meals & Bedtime, 0 Refill(s) [facility] erythromycin 250 mg oral delayed release capsule 2014-12-08 09:35:00 Yes 250 mg = 1 cap, PO, Q6H, # 40 cap, 0 Refill(s) [facility] [place] Clonidine Hydrochloride 0.1 MG Oral Tablet 2014-12-08 09:35:00 Yes 0.1 mg = 1 tab, PO, TID, PRN Hypertension, 0 Refill(s) [facility] [place] Aspirin 325 MG Oral Tablet 2014-12-08 09:35:00 Yes 325 mg = 1 tab, PO, Daily, # 30 tab, 0 Refill(s) Amrit Plascencia Phenergan 2014-12-08 09:10:00 No Notes: Do not give IV push. (Same as: Phenergan) [facility] Morphine 2014-12-08 09:07:00 No Not es: (Same as:MORPhine Sulfate) [facility] Sodium Chloride 0.154 MEQ/ML Injectable Solution 2014-12-08 09:0 7:00 No 1,000 mL, Rate: 125 ml/hr, I nfuse over: 8 hr, Route: IV, Dosing Weight 81.818 kg, Total Volume: 1,000, Start date: 12/08/14 4:07:00, Duration: 30 day, Stop date: 01/07/15 4:06:00 [facility] Her oneal Saline Flush 0.9% 2014-12-08 09:07:00 No Notes: (Same as: BD Posiflush) [facility] nitroglycerin 0.4 mg sublingual tablet 2014-12-08 08:28:00 No Notes: (Same as:Nitroquick, Nitrostat) "Do Not Crush" Sublingual tablet [facility] atropine 2014-12-08 08:28:00 No 0.5 mg, 5 mL, Route: IVP, Drug form: INJ, PRN, PRN Bradycardia, Start date: 12/08/14 3:28:00, Duration: 30 day, Stop date: 01/07/15 3:27:00 [facility] [place] Furosemide 20 MG Oral Tablet [Lasix] 2014-12-08 07:57:00 No 20 mg = 1 tab, PO, Daily, 0 Refill(s) [facility] Johnathan mejia Labetalol 2014-12-08 06:13:00 No Notes: (Same as: Normodyne, Trandate) Push over 2 minutes Give bolus over 2-3 minutes. [facility] Nitroglycerin 0.4 MG Sublingual Tablet [Nitrostat] 06:01:00 No Notes: (Same as:Nitroquick, Nitr ostat) "Do Not Crush" Sublingual tablet [facility] 2014-12-[facility] 05:34:00 No 12.5 mg, Route: IVPB, ONCE, Dosing Weight 77.273, kg, Priority: STAT, Start date: 12/08/14 0:34:00, Stop date: 12/08/14 0:34:00 [facility] Morphine 2014-12-08 05:34:00 No 4 mg, Route: IVP, Drug form: INJ, ONCE, Dosing Weight 77.273, kg, Priority: STAT, Start date: 12/08/14 0:34:00, Stop date: 12/08/14 0:34:00 [facility] 2014-12-08 05:26:00 No 4 mg, Route: IVP, Drug form: INJ, ONCE, Dosing Weight 77.273, kg, Priority: STAT, Start date: 12/08/14 0:26:00, Stop date: 12/08/14 0:26:00 [facility] 2014-12-08 05:25:00 No 12.5 mg, Route: IVPB, ONCE, Dosing Weight 77.273, kg, Priority: STAT, Start date: 12/08/14 0:25:00, Stop date: 12/08/14 0:25:00 [facility] Bentyl 2014-12-08 04:41:00 No 20 mg, Route: PO, ONCE, Dosing Weight 77.273, kg, Start date: 12/07/14 23:41:00, Stop date: 12/07/14 23:41:00 [facility] Morphine 2014-12-08 03:35:00 No 4 mg, Route: IVP, Drug form: INJ, ONCE, Dosing Weight 77.273, kg, Priority: STAT, Start date: 12/07/14 22:35:00, Stop date: 12/07/14 22:35:00 [facility] GI cocktail 2014-12-08 01:59:00 No Notes: G.I. Cocktail = antacid with simethicone 22.5 mL - lidocaine viscous 7.5 mL [facility] Morphine 2014-12-08 01:58:00 No 4 mg, Route: IVP, Drug form: INJ, ONCE, Dosing Weight 77.273, kg, Priority: STAT, Start date: 12/07/14 20:58:00, Stop date: 12/07/14 20:58:00 [facility] Royer kidd Protonix 2014-12-08 01:58:00 No 40 mg, Route: IVP, ONCE, Dosing Weight 77.273, kg, Priority: STAT, Start date: 12/07/14 20:58:00, Stop date: 12/07/14 20:58:00 [facility] [place] Clonidine 2014-12-08 00:49:00 No 0.1 mg, Route: PO, Drug form: TAB, ONCE, Dosing Weight 77.273, kg, Priority: STAT, Start date: 12/07/14 19:49:00, Stop date: 12/07/14 [facility]:49:00 [facility] 2014-12-08 00:49:00 No 12.5 mg, Route: IVPB, ONCE, Dosing Weight 77.273, kg, Priority: STAT, Start date: 12/07/14 19:49:00, Stop date: 12/07/14 19:49:00 [facility] Sodium Chloride 0.154 MEQ/ML Injectable Solution 2014-12-08 00:4 8:00 No 1,000 mL, 1,000 ml/hr, Infus e Over: 1 hr, Route: IV, ONCE, Priority: STAT, Dosing Weight 77.273 kg, Start date: 12/07/14 19:48:00, Duration: 1 doses or times, Stop date: 12/07/14 19:48:00 Navarro guzmán [facility] metoprolol tartrate 50 mg oral tablet 2014-12-01 21:20:58 Y es 50 mg = 1 tab, PO, Q12H, # 120 tab, 0 Refill(s) [facility] lisinopril 20 mg oral tablet 2014-12-01 21:20:56 Yes 20 mg = 1 tab, PO, BID, # 60 tab, 0 Refill(s) [facility] clopidogrel 75 MG Oral Tablet [Plavix] 2014-12-01 21:20:47 Yes 75 mg = 1 tab, PO, Daily, # 30 tab, 0 Refill(s) [facility] Aspirin 325 MG Oral Tablet 2014-12-01 21:20:16 Yes 325 mg, PO, Daily, # 30 tab, 0 Refill(s) Jacob Royer marti Temazepam 30 MG Oral Capsule [...] 23:24 :00 No Notes: (Same as: Atarax) [facility] E[facility] Ethylsuccinate 40 MG/ML Oral Suspension 11-29 22:00:00 No Notes: (Same as: E.E.S.-400) [facility] Hydroxyzine 2014-11-29 21:45:00 No Notes: (Same as: Vistaril) Avoid alcohol. [facility] Tylenol 2014-11-28 16:53:00 No Notes: Do not exceed 4 gm/day. (Same as: Tylenol) [facility] Dilaudid 2014-11-28 16:53:00 No 1 mg, 1 mL, Route: IV, Drug form: INJ, Q4H, Dosing Weight 81.818, kg, PRN Pain Score 7-10, Start date: 11/28/14 11:53:00, Duration: 30 day, Stop date: 12/28/14 11:52:00 [facility] Levsin 2014-11-28 02:00:00 No Notes: (Same as: Levsin) Take 30 min before meal [facility] Protonix 2014-11-26 21:30:00 No Notes: Tablet should not be chewed or crushed. (Same as: Protonix) [facility] Levsin 2014-11-26 14:34:00 No Notes: (Same as: Levsin) Take 30 min before meal [facility] Sodium Chloride 0.154 MEQ/ML Injectable Solution 2014-11-26 13:1 5:00 No 500 mL, Rate: 25 ml/hr, Infu se over: 20 hr, Route: IV, Dosing Weight 81.818 kg, Total Volume: 500, Start date: 11/26/14 8:15:00, Duration: 1 day, Stop date: 11/27/14 8:14:00 [facility] Dilaudid 2014-11-25 22:51:00 No 1 mg, 1 mL, Route: IVP, Drug form: INJ, ONCE, Dosing Weight 81.818, kg, Priority: STAT, Start date: 11/25/14 17:51:00, Stop date: 11/25/14 17:51:00 [facility] Plavix 2014-11-25 14:00:00 No Notes: (Same As: Plavix) [facility] Aspirin 325 MG Oral Tablet 2014-11-25 14:00:00 No Notes: Take with food. [facility] Thyroxine 2014-11-25 11:30:00 No Notes: Take 1 hour before or 2 hours after meal; Enteral feeds may interefere with the absorption of this medication. (Same as: Levothroid) Srikanth Plascencia Famotidine 20 MG Oral Tablet 2014-11-25 02:00:00 No Notes: (Same as: Pepcid) [facility] Restoril 2014-11-25 02:00:00 No Notes: (Alexandro e As: Restoril) [facility] metoprolol tartrate 2014-11-25 02:00:00 No Notes: (Same as: Lopressor) [facility] Lisinopril 2014-11-25 02:00:00 No Notes: (Same as: Prinivil, Zestril) [facility] Lipitor 2014-11-25 02:00:00 No Notes: (Same as: Lipitor) [facility] Dilaudid 2014 22:16:00 No 0.5 mg, 0.5 mL, Route: IV, Drug form: INJ, Q3H, Dosing Weight 81.818, kg, PRN Pain Score 7-10, Start date: 11/24/14 17:16:00, Duration: 30 day, Stop date: 12/24/14 17:15:00 [facility] Acetaminophen 325 MG / Hydrocodone Bitartrate 10 MG Or al Tablet [Hamilton 10/325] 2014 22:13:00 No Note s: Do not exceed 4gm/day of acetaminophen. (Same as: Hamilton 325/10) [facility] Valium 2014 22:12:00 No Notes: (Same as: Valium) [facility] Phenergan 2014 06:07:00 No Notes: Do not give IV push. (Same as: Phenergan) [facility] Saline Flush 0.9% 2014 02:00:00 No Notes: (Same as: BD Posiflush) [facility] Dilaudid 2014-11-23 23:49:00 No 0.5 mg, 0.5 mL, Route: IV, Drug form: INJ, Q4H, Dosing Weight 81.818, kg, PRN Pain Score 7-10, Start date: 11/23/14 18:49:00, Duration: 30 day, Stop date: 12/23/14 18:48:00 [facility] Phenergan 2014-11-23 23:49:00 No Notes: (Sa me as: Phenergan) [facility] Magnesium Sulfate 2014-11-23 23:46:00 No 2 gm, 50 mL, Route: IVPB, Drug form: INJ, ONCE, Dosing Weight 81.818, kg, Total dose = 2 gm, Start date: 11/23/14 18:46:00, Duration: 1 doses or times, Stop date: 11/23/14 18:46:00 [facility] normal saline 0.9% IV 1,000 mL 2014-11-23 23:39:00 No 1,000 mL, Rate: 80 ml/hr, Infuse over: 12.5 hr, Route: IV, Dosing Weight 81.818 kg, Total Volume: 1,000, Start date: 11/23/14 18:39:00, Stop date: 12/23/14 18:38:00 [facility] nitroglycerin 0.4 mg sublingual tablet 2014-11-23 23:37:00 No Notes: (Same as:Nitroquick, Nitrostat) "Do Not Crush" Sublingual tablet [facility] atropine 2014-11-23 23:36:00 No 0.5 mg, 5 mL, Route: IVP, Drug form: INJ, PRN, PRN Bradycardia, Start date: 11/23/14 18:36:00, Duration: 30 day, Stop date: 12/23/14 18:35:00 [facility] Pepcid 2014-11-23 23:21:00 No Notes: (Same as: Pepcid) Can be dilute in 5-10cc NS IVP: Slow IV push over at least 2 minutes. [facility] Dilaudid 2014-11-23 22:57:00 No 1 mg, Route: IVP, ONCE, Dosing Weight 81.818, kg, Priority: STAT, Start date: 11/23/14 17:57:00, Stop date: 11/23/14 17:57:00 [facility] Benadryl 2014-11-23 22:56:00 No 25 mg, Route: IVP, ONCE, Dosing Weight 81.818, kg, PRN Allergic reaction, Start date: 11/23/14 17:56:00 [facility] Reglan 2014-11-23 22:55:00 No 10 mg, Route: IVP, ONCE, Dosing Weight 81.818, kg, Start date: 11/23/14 17:55:00, Stop date: 11/23/14 17:55:00 [facility] Clonidine Hydrochloride 0.1 MG Oral Tablet 2014-11-23 22:42:00 No 160 [facility] Droperidol 2014-11-23 22:42:00 No 0.625 mg, Route: IVP, ONCE, Dosing Weight 81.818, kg, PRN Nausea, Start date: 11/23/14 17:42:00, Stop date: 12/23/14 17:41:00 [facility] Saline Flush 0.9% 2014-11-23 22:17:00 No Notes: (Same as: BD Posiflush) [facility] Morphine 2014-11-23 22:17:00 No Not es: (Same as:MORPhine Sulfate) [facility] Nitroglycerin 2014-11-23 22:17:00 No Notes: (Same as:Nitroquick, Nitrostat) "Do Not Crush" Sublingual tablet [facility] Morphine 2014-11-23 20:34:00 No Not es: (Same as:MORPhine Sulfate) [facility] Clonidine Hydrochloride 0.1 MG Oral Tablet 2014-11-23 20:33:00 No Notes: (Same As: Catapres) [facility] Labetalol 2014-11-23 20:33:00 No Notes: (Same as: Normodyne, Trandate) Push over 2 minutes Give bolus over 2-3 minutes. [facility] Ativan 2014-11-23 19:33:00 No 1 mg, Route: PO, Drug form: TAB, ONCE, Dosing Weight 81.818, kg, Priority: STAT, Start date: 11/23/14 14:33:00, Stop date: 11/23/14 14:33:00 [facility] Nitroglycerin 2014-11-23 18:20:00 No Notes: (Same as:Nitroquick, Nitrostat) "Do Not Crush" Sublingual tablet [facility] Morphine 2014-11-23 18:13:00 No 4 mg, Route: IVP, Drug form: INJ, ONCE, Dosing Weight 81.818, kg, Priority: STAT, Start date: 11/23/14 13:13:00, Stop date: 11/23/14 13:13:00 [facility] Saline Flush 0.9% 2014-11-23 17:33:00 No Notes: (Same as: BD Posiflush) [facility] multivitamin with minerals 2014-09-19 14:00:00 No Notes: (Same as:Thera-M, Theragran-M) Give with food. [facility] Thyroxine 2014-09-19 14:00:00 No Notes: Take 1 hour before or 2 hours after meal; Enteral feeds may interefere with the absorption of this medication.(Same as:Levothroid, Synthroid) [facility] Aspirin 325 MG Oral Tablet 2014-09-19 14:00:00 No 325 mg, Route: PO, Drug form: TAB, Daily, Dosing Weight 79.545, kg, Start date: 09/19/14 9:00:00, Duration: 30 day, Stop date: 10/18/14 9:00:00 [facility] Plavix 2014-09-19 14:00:00 No 75 mg, Route: PO, Drug form: TAB, Daily, Dosing Weight 79.545, kg, Start date: 09/19/14 9:00:00, Duration: 30 day, Stop date: 10/18/14 9:00:00 [facility] potassium chloride 2014-09-19 14:00:00 No 80 mEq, Route: PO, Daily, Dosing Weight 79.545, kg, Start date: 09/19/14 9:00:00, Duration: 30 day, Stop date: 10/18/14 9:00:00 [facility] metoprolol tartrate 2014-09-19 02:00:00 No 50 mg, Route: PO, Drug form: TAB, Q12H, Dosing Weight 79.545, kg, Start date: 09/18/14 21:00:00, Duration: 30 day, Stop date: 10/18/14 9:00:00 [facility] Lipitor 2014-09-19 02:00:00 No 80 mg, [...] exceed 4gm/day of acetamino phen. (Same as: Hamilton 325/10) [facility] Hydralazine Hydrochloride 10 MG Oral Tablet 2014-09-18 17:19:00 No Notes: (Same as: Apresoline) May interfere w/enteral feedings. Take With Food Jacob Plascencia Acetaminophen 325 MG / Hydrocodone Bitartrate 10 MG Or al Tablet [Hamilton 10/325] 2014-09-18 17:17:00 No Note s: Do not exceed 4gm/day of acetaminophen. (Same as: Hamilton 325/10) [facility] metoprolol tartrate 50 mg oral tablet 2014-09-18 16:56:00 Y es 50 mg = 1 tab, PO, Q12H, # 120 tab, 0 Refill(s) [facility] clopidogrel 75 MG Oral Tablet [Plavix] 2014-09-18 16:56:00 Yes 75 mg = 1 tab, PO, Daily, # 30 tab, 0 Refill(s) [facility] atorvastatin 80 MG Oral Tablet [Lipitor] 2014-09-18 16:56:00 Yes 80 mg = 1 tab, PO, Bedtime, # 30 tab, 0 Refill(s) [facility] lisinopril 20 mg oral tablet 2014-09-18 16:56:00 Yes 20 mg = 1 tab, PO, BID, # 60 tab, 0 Refill(s) [facility] Aspirin 325 MG Oral Tablet 2014-09-18 16:56:00 Yes 325 mg, PO, Daily, # 30 tab, 0 Refill(s) [facility] Hydralazine Hydrochloride 10 MG Oral Tablet 2014-09-18 16:56:00 Yes 160 mmHg, # 120 tab, 0 Refill(s) [facility] Saline Flush 0.9% 2014-09-18 14:00:00 No Notes: (Same as: BD Posiflush) [facility] Valium 2014-09-18 12:54:00 No Notes: (Same as: Valium) [facility] metoprolol tartrate 2014-09-18 12:54:00 No Notes: (Same as: Lopressor) [facility] Lisinopril 2014-09-18 12:54:00 No Notes: (Same as: Prinivil, Zestril) [facility] clopidogrel 75 MG Oral Tablet [Plavix] 2014-09-18 12:42:00 No 75 mg = 1 tab, PO, Daily [facility] lisinopril 20 mg oral tablet 2014-09-18 12:42:00 No 20 mg = 1 tab, PO, BID, 0 Refill(s) [facility] Temazepam 30 MG Oral Capsule [Restoril] 2014-09-18 12:42:00 Yes 30 mg = 1 cap, PO, Bedtime [facility] Diazepam 10 MG Oral Tablet [Valium] 2014-09-18 12:42:00 Yes 10 mg = 1 tab, PO, TID, PRN Anxiety [facility] metoprolol tartrate 50 mg oral tablet 2014-09-18 12:42:00 N o 50 mg = 1 tab, PO, Q12H [facility] levothyroxine 200 mcg (0.2 mg) oral tablet 2014-09-18 12:42:00 Yes 200 microgram = 1 tab, PO, Daily, # 30 tab [facility] Aspirin 2014-09-18 12:42:00 No 325 mg, PO, Daily, 0 Refill(s) [facility] 2014-09-18 12:42:00 Yes 1 tab, PO, Daily, 0 Refill(s) [facility] atorvastatin 80 MG Oral Tablet [Lipitor] 2014-09-18 12:42:00 No 80 mg = 1 tab, PO, Bedtime [facility] Acetaminophen 325 MG / Hydrocodone Bitartrate 10 MG Or al Tablet [Hamilton 10/325] 2014-09-18 12:42:00 Yes 1-2 tab, PO, Q4-6H , PRN Pain [facility] potassium chloride 2014-09-18 12:42:00 Yes 8 0 mEq, PO, Daily [facility] Phenergan 2014-09-18 11:35:00 No Notes: Do not give IV push. (Same as: Phenergan) [facility] Metoprolol 2014-09-18 10:09:00 No 5 mg, Route: IV, ONCE, Dosing Weight 79.545, kg, Start date: 09/18/14 5:09:00, Stop date: 09/18/14 5:09:00 [facility] Morphine 2014-09-18 10:08:00 No 4 mg, Route: IVP, ONCE, Dosing Weight 79.545, kg, Start date: 09/18/14 5:08:00, Stop date: 09/18/14 5:08:00 [facility] Saline Flush 0.9% 2014-09-18 08:20:00 No Notes: (Same as: BD Posiflush) [facility] Nitroglycerin 2014-09-18 08:20:00 No Notes: (Same as:Nitroquick, Nitrostat) "Do Not Crush" Sublingual tablet [facility] Aspirin 325 MG Oral Tablet 2014-09-18 08:20:00 No Notes: Take with food. [facility] Ativan 2014-09-18 07:14:00 No 0.5 mg, Route: IVP, Drug form: INJ, ONCE, Dosing Weight 79.545, kg, PRN Anxiety, Start date: 09/18/14 2:14:00 [facility] Nitroglycerin 0.02 MG/MG Topical Ointment 2014-09-18 05:22:00 No 0.5 inch, Route: TOP, Dosing Weight 79.545, kg, ONCE, Start date: 09/18/14 0:22:00, Stop date: 09/18/14 0:22:00 [facility] Aspirin 325 MG Oral Tablet 2014-09-18 05:10:00 No 325 mg, Route: PO, Drug form: TAB, ONCE, Dosing Weight 79.545, kg, Priority: STAT, Start date: 09/18/14 0:10:00, Stop date: 09/18/14 0:10:00 [facility] Alprazolam (Xanax) 0.5 Mg TABLET Alprazolam (Xanax) 0.5 Mg TABLET Yes .5 As Needed [facility] Clonazepam Clonazepam Yes 2 Three Times A Day [facility] Clopidogrel Bisulfate (Plavix) 75 Mg TABLET Clopidogre l Bisulfate (Plavix) 75 Mg TABLET Yes 1 Daily [facility] Levothyroxine Sodium (Synthroid) 50 Mcg TAB Levothyrox ine Sodium (Synthroid) 50 Mcg TAB Yes 200 Today At 6:30AM [facility] Levothyroxine Sodium Levothyroxine Sodium Yes 175 Daily [facility] Lisinopril Lisinopril Yes 10 Twice A Day [facility] Oxycodone Hcl Oxycodone Hcl Yes 10 Thre e Times A Day as needed for Rn [facility] Temazepam (Restoril) 30 Mg CAPSULE Temazepam (Restoril) 30 Mg CAPSULE Yes 30 Bedtime [facility] Atorvastatin Calcium (Lipitor) 20 Mg TABLET Atorvastat in Calcium (Lipitor) 20 Mg TABLET 2019-09-06 00:00:00 No 20 80 [facility] Metoprolol Succinate (Toprol Xl) 50 Mg TAB.SR.24H Meto prolol Succinate (Toprol Xl) 50 Mg TAB.SR.24H 2019-09-06 00:00:00 No 1 Ally ly [facility] Potassium Chloride Potassium Chloride 2019-08-31 00:00:00 No 20 Daily [facility] Tramadol Hcl (Ultram) 50 Mg TABLET Tramadol Hcl (Ultram) 50 Mg T ABLET 2019-08-31 00:00:00 No 50 As Needed as needed for Pain [facility] Vital Signs Vital Name Observation Time Observation Value Comments Source Body Temperature 2019-09-29 11:32:00 97.3 [degF] [facility] Weight 2019-09-28 01:34:00 139.06 [lb_av] [facility] BMI (Body Mass Index) 2019-09-28 01:34:00 24.6 kg/m2 [facility] Heart Rate 2016-04-13 20:51:00 [facility] Temperature Oral (F) 2016-04-13 20:51:00 98.7 F [facility] Systolic (mm Hg) 2016-04-13 20:51:00 [facility] Diastolic (mm Hg) 2016-04-13 20:51:00 [facility] Respitory Rate 2016-04-13 20:51:00 [facility] Systolic (mm Hg) 2016-04-13 16:42:00 [facility] Diastolic (mm Hg) 2016-04-13 16:42:00 [facility] Temperature Oral (F) 2016-04-13 16:42:00 98.7 F [facility] Respitory Rate 2016-04-13 16:42:00 [facility] Heart Rate 2016-04-13 16:42:00 [facility] Weight 2016-04-13 14:56:00 [facility] Height 2016-04-13 14:56:00 177.8 cm [facility] BMI Calculated 2016-04-13 14:56:00 [facility] Systolic (mm Hg) 2016-04-13 13:37:00 [facility] Diastolic (mm Hg) 2016-04-13 13:37:00 [facility] Temperature Oral (F) 2016-04-13 13:37:00 98.0 F [facility] Heart Rate 2016-04-13 13:37:00 [facility] Respitory Rate 2016-04-13 13:37:00 [facility] Weight 2016-04-12 09:59:00 [facility] BMI Calculated 2016-04-12 09:59:00 [facility] Height 2016-04-12 09:59:00 177.8 cm [facility] Height 2016-04-12 03:37:00 160.02 cm [facility] BMI Calculated 2016-04-12 03:37:00 [facility] Weight 2016-04-12 03:37:00 [facility] Weight 2016-03-31 16:29:00 [facility] Height 2016-03-31 16:29:00 160.02 cm [facility] Systolic (mm Hg) 2016-03-31 16:29:00 [facility] Diastolic (mm Hg) 2016-03-31 16:29:00 [facility] Temperature Oral (F) 2016-03-31 16:29:00 97.9 F [facility] Respitory Rate 2016-03-31 16:29:00 [facility] Heart Rate 2016-03-31 16:29:00 [facility] BMI Calculated 2016-03-31 16:29:00 [facility] Temperature Oral (F) 2016-03-27 17:24:00 98.2 F [facility] Respitory Rate 2016-03-27 17:24:00 [facility] Heart Rate 2016-03-27 17:24:00 [facility] Systolic (mm Hg) 2016-03-27 17:24:00 [facility] Diastolic (mm Hg) 2016-03-27 17:24:00 [facility] Weight 2016-03-27 16:04:00 [facility] BMI Calculated 2016-03-27 16:04:00 [facility] Height 2016-03-27 16:04:00 160.02 cm [facility] Respitory Rate 2016-03-27 16:04:00 [facility] Heart Rate 2016-03-27 16:04:00 [facility] Systolic (mm Hg) 2016-03-27 16:04:00 [facility] Diastolic (mm Hg) 2016-03-27 16:04:00 [facility] Temperature Oral (F) 2016-03-27 16:04:00 98.3 F [facility] Respitory Rate 2014-12-08 17:05:00 [facility] Systolic (mm Hg) 2014-12-08 17:05:00 [facility] Diastolic (mm Hg) 2014-12-08 17:05:00 [facility] Weight 2014-12-08 15:32:00 [facility] Systolic (mm Hg) 2014-12-08 13:00:00 [facility] Diastolic (mm Hg) 2014-12-08 13:00:00 [facility] Respitory Rate 2014-12-08 13:00:00 [facility] Temperature Oral (F) 2014-12-08 13:00:00 97.4 F [facility] Heart Rate 2014-12-08 13:00:00 [facility] Height 2014-12-08 08:51:00 160.02 cm [facility] Weight 2014-12-08 08:51:00 [facility] BMI Calculated 2014-12-08 08:51:00 [facility] Temperature Oral (F) 2014-12-08 08:10:00 97.5 F [facility] Heart Rate 2014-12-08 08:10:00 [facility] Systolic (mm Hg) 2014-12-08 08:10:00 [facility] Diastolic (mm Hg) 2014-12-08 08:10:00 [facility] Respitory Rate 2014-12-08 08:10:00 [facility] Temperature Oral (F) 2014-12-08 07:24:00 97.7 F [facility] Weight 2014-12-07 22:35:00 [facility] BMI Calculated 2014-12-07 22:35:00 [facility] Height 2014-12-07 22:35:00 160.02 cm [facility] Heart Rate 2014-12-07 22:35:00 [facility] Temperature Oral (F) 2014-12-01 19:57:00 97.9 F [facility] Respitory Rate 2014-12-01 19:57:00 [facility] Systolic (mm Hg) 2014-12-01 19:57:00 [facility] Diastolic (mm Hg) 2014-12-01 19:57:00 [facility] Heart Rate 2014-12-01 19:57:00 [facility] Systolic (mm Hg) 2014-12-01 18:20:00 [facility] Diastolic (mm Hg) 2014-12-01 18:20:00 [facility] Respitory Rate 2014-12-01 16:55:00 [facility] Systolic (mm Hg) 2014-12-01 16:55:00 [facility] Diastolic (mm Hg) 2014-12-01 16:55:00 [facility] Heart Rate 2014-12-01 16:55:00 [facility] Temperature Oral (F) 2014-12-01 16:55:00 98.1 F [facility] Respitory Rate 2014-12-01 12:56:00 [facility] Temperature Oral (F) 2014-12-01 12:56:00 97.5 F [facility] Heart Rate 2014-12-01 12:56:00 [facility] Weight 2014-11-26 21:37:00 [facility] Height 2014-11-23 17:05:00 160.02 cm [facility] Weight 2014-11-23 17:05:00 [facility] BMI Calculated 2014-11-23 17:05:00 [facility] Heart Rate 2014-09-18 17:03:00 [facility] Systolic (mm Hg) 2014-09-18 17:03:00 [facility] Diastolic (mm Hg) 2014-09-18 17:03:00 [facility] Temperature Oral (F) 2014-09-18 17:03:00 97.9 F [facility] Respitory Rate 2014-09-18 17:03:00 [facility] Weight 2014-09-18 13:04:00 [facility] Height 2014-09-18 13:04:00 160.02 cm [facility] BMI Calculated 2014-09-18 13:04:00 [facility] Heart Rate 2014-09-18 12:49:00 [facility] Respitory Rate 2014-09-18 12:49:00 [facility] Systolic (mm Hg) 2014-09-18 12:49:00 [facility] Diastolic (mm Hg) 2014-09-18 12:49:00 [facility] Temperature Oral (F) 2014-09-18 12:49:00 98.3 F [facility] Temperature Oral (F) 2014-09-18 10:00:00 98.0 F [facility] Systolic (mm Hg) 2014-09-18 10:00:00 [facility] Diastolic (mm Hg) 2014-09-18 10:00:00 [facility] Heart Rate 2014-09-18 10:00:00 [facility] Respitory Rate 2014-09-18 10:00:00 [facility] Height 2014-09-18 00:22:00 160.02 cm [facility] BMI Calculated 2014-09-18 00:22:00 [facility] Weight 2014-09-18 00:22:00 [facility] Procedures Procedure Date / Time Performed Performing Clinician Leticia adams CT of abdomen and pelvis without contrast 2019-09-19 00:00:00 [facility] Computed tomography of abdomen and pelvis with contrast 00:00:00 [facility] Hysterectomy [facility] CABG x 1 - Coronary artery bypass graft x 1<sup>1</sup> [facility] Stent placement [facility] Cholecyst[facility] Plan of Care Planned Activity Planned Date Details Comments Source Instructions Abdominal Pain - Pediatric C HI [facility] Instructions Chest Pain - Chest Wall [facility] Instructions Hypertension [facility] Instructions Vomiting - Adult [facility] Encounters Start Date/Time End Date/Time Encounter Type Admission Type Attendi [facility] Care Department Encounter ID Source 2016-04-11 21:28:00 2016-04-13 15:42:00 Outpatient Christiano Ceja [facility] [id number] 2016-03-31 10:12:00 2016-03-31 11:17:00 Outpatient Rosa Lam [facility] [id number] 2016-03-27 10:03:00 2016-03-27 11:20:00 Outpatient Lokesh Felix [facility] [id number] 2014-12-07 17:27:00 2014-12-08 13:00:00 Outpatient Luis Lyles [facility] [id number] 2014-11-23 11:54:00 2014-12-01 17:10:00 Outpatient Chevy Callaway MH[facility] MHSE [id number] 2014-09-17 18:40:00 2014-09-18 12:15:00 Outpatient Ruddy Guadarrama [facility]IE MHIE [id number] Results Test Description Test Time Test Comments Results Result Comments Source CHEST SINGLE (PORTABLE) 2019-11-20 13:31:00 [facility] [address] [place] [address] Patient Name: TRINITY FERNANDEZ MR #: [id number] : 1960 Age/Sex: 58/F Req #: [id number] Adm Physician: Ordered by: SAM HASTINGS MD Report #: [id number] Location: ER Room/Bed: Procedure: [id number] DX/CHEST SINGLE (PORTABLE) Exam Date: 11/20/19 Exam Time: 1215 REPORT STATUS: Signed X-ray chest AP History: Chest pain Comparison: 10/04/2019 Findings: Status post median sternotomy, CABG, left coronary artery stent. Central airways unremarkable. Cardiomediastinal silhouettes unremarkable for ectatic descending thoracic aorta. No pleural effusion. No pneumothorax. No focal lung disease. No significant abnormality of the visualized skeleton are upper abdomen. Impression: No acute cardiopulmonary disease on this exam. Signed by: Domingo Ashford MD on 11/20/2019 1:33 PM Dictated By: DOMINGO ASHFORD MD 1333 Transcribed By: JOVANY on 11/20/19 1333 COPY TO: SAM HASTINGS MD ABDOMEN ACUTE SERIES W/PA CXR 2019-10-04 15:06:00 [place] [address] Patient Name: TRINITY FERNANDEZ MR #: [id number] : 1960 Age/Sex: 58/F Req #: [id number] Adm Physician: Ordered by: SAM HASTINGS MD Report #: [id number] Location: ER Room/Bed: Procedure: [id number] DX/ABDOMEN ACUTE SERIES W/PA CXR Exam Date: [...] distention of the stomach. Signed by: Maria Valle MD on 10/04/2019 3:08 PM Dictated By: MARIA VALLE MD 1503 Transcribed By: JOVANY on 10/04/198 COPY TO: SAM HASTINGS MD URINALYSIS COMPLETE [...] per LPF NONE-FEW Urine Source? Clean CatchURINALYSIS [id number] 00:39:00* Test Item Value Reference Range Interpretation [...] Urine Source? Clean Catch- CT ABD PELVIS [id number] 18:45:00 Name: TRINITY FERNANDEZ [facility] : 1961 Age/S: 57 / F [address] [facility] Unit #: [id number] Loc: [place] [address] Phys: Carrie Jeter MD Acct: [id number] Di s Date: Status: REG ER PHONE #: [phone] Exam Date: 10/03/20191815 FAX #: [phone] Reason: abd pain, swollen labia EXAMS: CPT CODE: [id number] CT ABD PELVIS W/CONT 11029 REASON FOR EXAM: abd pain , swollen labia EXAM ORDER DATE: 10/03/2019 1:41 PM O len [place]: Carrie Jeter MD PROCEDURE: Axial CT images [...] 1 Signed Report (CONTINUED) Name: TRINITY FERNANDEZ [facility] [place] : 1961 Age/S: 57 / F [address] Unit #: [id number] Loc: [facility] [place] 775 [address] Phys: Carrie Jeter MD Acct: [id number] Dis Date: Status: REG ER PHONE #: [phone] Exam Date: 10/03/20191815 FAX #: [phone] Reason: abd pain, swollen labia EXAMS: CPT CO DE: [id number] CT ABD PELVIS W/CONT 17583 <Continued> Musculoskeletal structures and abdominal wall: The [...] developing abscess within the laparotomy incision. Location: [facility] at 1845 Reported and signed by: Dylan Gupta MD CC: Carrie Jeter MD Technologist:Selin Salmeron RT(R); SHIRIN Goldman CTDI: DLP: Trnscb Date/Time: 10/03/2019 (1844) [id number] Orig Print D/T: S: 10/03/2019 (1847) PAGE 2 Signed Report BASIC METABOLIC [id number] 16:35:00* Test Item Value Reference Range Interpretation [...] CA) 9.1 mg/dL 8.5-10.1 N HEPATIC FUNCTION [id number] 16:35:00* Test Item Value Reference Range Interpretation [...] reference range due to change in reagent. [id number] 16:35:00* Test Item Value Reference Range Interpretation Comments LIPASE (test code = LIP) 51 U/L 73.0-393.0 L HCG SERUM [id number] 16:35:00* Test Item Value Reference Range Interpretation Comments HCG SERUM QUAL (test code = HCGQL) NEGATIVE NEGATIVE This HCGQL test is NOT applicable for MALE patients.Check with nurse about probable order error.If Tumor Marker Test needed, nurse should order test "HCGTU"(Test #550.76745) [id number] 16:35:00* Test Item Value Reference Range Interpretation Comments TROPONIN-I (test code = TROPI) <0.015 ng/mL 0-0.045 N PROTHROMBIN [id number] 16:33:00* Test Item Value Reference Range Interpretation [...] (2.5-3.5) IS PATIENT ON ANTICOAGULANTS? NTHROMBOPLASTIN TIME UCJDZOO2765-54-02 16:33:00* Test Item Value Reference Range Interpretation Comments THROMBOPLASTIN TIME PARTIAL (test code = PTT) 30.9 seconds 23.0-37. 0 N IS PATIENT ON ANTICOAGULANTS? NBASIC METABOLIC [id number] 16:25:00* Test Item Value Reference Range Interpretation [...] code = CA) mg/dL 8.5-10.1 HEPATIC FUNCTION [id number] 16:25:00* Test Item Value Reference Range Interpretation [...] TOTAL (test code = ALKP) IUnit/L 45-117 [id number] 16:25:00* Test Item Value Reference Range Interpretation Comments LIPASE (test code = LIP) U/L 73.0-393.0 HCG SERUM [id number] 16:25:00* Test Item Value Reference Range Interpretation Comments HCG SERUM QUAL (test code = HCGQL) NEGATIVE NEGATIVE This HCGQL test is NOT applicable for MALE patients.Check with nurse about probable order error.If Tumor Marker Test needed, nurse should order test "HCGTU"(Test #550.89989) [id number]-[id number] 16:25:00* Test Item Value Reference Range Interpretation Comments TROPONIN-I (test code = TROPI) ng/mL 0-0.045 BASIC METABOLIC [id number] 16:24:00* Test Item Value Reference Range Interpretation [...] code = CA) mg/dL 8.5-10.1 HEPATIC FUNCTION [id number] 16:24:00* Test Item Value Reference Range Interpretation [...] TOTAL (test code = ALKP) IUnit/L 45-117 [id number] 16:24:00* Test Item Value Reference Range Interpretation Comments LIPASE (test code = LIP) U/L 73.0-393.0 HCG SERUM [id number] 16:24:00* Test Item Value Reference Range Interpretation Comments HCG SERUM QUAL (test code = HCGQL) NEGATIVE [id number] 16:24:00* Test Item Value Reference Range Interpretation Comments TROPONIN-I (test code = TROPI) ng/mL 0-0.045 CBC W/O [id number] 16:22:00* Test Item Value Reference Range Interpretation [...] 8.9 fL 6.7-11.0 N ABDOMEN-1VIEW (KUB)2019-09-28 14:28:00 [place] [address] Patient Name: TRINITY FERNANDEZ MR #: [id number] : 1960 Age/Sex: 58/F Req #: [id number] Adm Physician: ANTELMO HEART MD Ordered by: MAURO SOLIS MD Report #: [id number] Location: MED/SURG3 Room/Bed: [facility] Procedure: [id number] DX/ABDOMEN-1VIEW (KUB) Exam Date: 09/28/19 Exam Time: [...] 2:31 PM Dictated By: MARIA VALLE MD 30 Transcribed By : JOVANY on 09/28/191430 COPY TO: MAURO SOLIS MD Serum or plasma potassium measurement (moles/volume)2019-09-27 10:33:00* Test Item Value Reference Range Interpretation Comments Potassium Level (test code = 2823-3) 4.2 3.5-5.1 [facility] CenterPhosphorus bpmhgilfudu7795-84-03 10:33:00 * Test Item Value Reference Range Interpretation Comments Phosphorus Level (test code = AFM3909) 2.4 2.3-4.7 [facility] ([facility])2019-09-26 22:13:00 [place] [address] Patient Name: TRINITY FERNANDEZ MR #: [id number] : 1960 Age/Sex: 58/F Req #: [id number] Adm Physician: ANTELMO HEART MD Ordered by: SOFI BAIG MD Report #: [id number] Location: [facility]/SURG Room/Bed: [facility] Procedure: [id number] DX/ABDOMEN-1VIEW ([facility]) Exam Date: 09/26/19 Exam Time: 2129 REPORT [...] Count (test code = 6690-2) 8.00 4.8-10.8 [facility] CenterBlood erythrocytes automated count (number/volume)2019-09-26 20:58:00* Test Item Value Reference Range Interpretation Comments Red Blood Count (test code = 789-8) 3.82 3.6-5.1 [facility] CenterBlood hemoglobin measurement (moles/volume)2019-09-26 20:58:00* Test Item Value Reference Range Interpretation Comments Hemoglobin (test code = 03387-2) 12.1 12.0-16.0 [facility] CenterAutomated blood hematocrit (volume fraction)2019-09-26 20:58:00* Test Item Value Reference Range Interpretation Comments Hematocrit (test code = 4544-3) 34.5 34.2-44.1 [facility] CenterAutomated erythrocyte mean corpuscular moenwu1077-97-48 20:58:00* Test Item Value Reference Range Interpretation Comments Mean Corpuscular Volume (test code = 787-2) 90.3 81-99 [facility] CenterAutomated erythrocyte mean corpuscular hemoglobin (mass per erythrocyte)2019-09-26 20:58:00* Test Item Value Reference Range Interpretation Comments Mean Corpuscular Hemoglobin (test code = 785-6) 31.7 28-32 [facility] CenterAutomated erythrocyte mean corpuscular hemoglobin concentration measurement (mass/volume)2019-09-26 20:58:00* Test Item Value Reference Range Interpretation Comments Mean Corpuscular Hemoglobin Concent (test code = 786-4) 35.1 31-35 [facility] CenterRDW ZbgKe-Bok2837-55-23 20:58:00* Test Item Value Reference Range Interpretation Comments Red Cell Distribution Width (test code = 98780-6) 12.8 11.7 -14.4 [facility] CenterAutomated blood platelet count (count/volume)2019-09-26 20:58:00* Test Item Value Reference Range Interpretation Comments Platelet Count (test code = 777-3) 278 140-360 [facility] CenterAuterlanger western carolina hospitaled blood segmented neutrophil count as percentage of total drvafiowjw8962-02-01 20:58:00* Test Item Value Reference Range Interpretation Comments Neutrophils (%) (Auto) (test code = 35232-1) 68.1 38.7-80.0 [facility] CenterAutomated blood lymphocyte count as percentage ot total kbgisyksua9709-71-00 20:58:00* Test Item Value Reference Range Interpretation Comments Lymphocytes (%) (Auto) (test code = 736-9) 13.5 18.0-39.1 [facility] CenterAutomated blood monocyte count as percentage of total pplywpyljg7260-02-73 20:58:00* Test Item Value Reference Range Interpretation Comments Monocytes (%) (Auto) (test code = 5905-5) 15.9 4.4-11.3 [facility] CenterAutomated blood eosinophil count as percentage of total oygjijgnol3054-89-94 20:58:00* Test Item Value Reference Range Interpretation Comments Eosinophils (%) (Auto) (test code = 713-8) 1.1 0.0-6.0 [facility] CenterAutomated blood basophil count as percentage of total hwtvfkjsis7632-83-81 20:58:00* Test Item Value Reference Range Interpretation Comments Basophils (%) (Auto) (test code = 706-2) 0.4 0.0-1.0 [facility] CenterFluoroscopic procedure less than one hour jmvccqdq0988-28-21 20:58:00* Test Item Value Reference Range Interpretation Comments IM GRANULOCYTES % (test code = IM GRANULOCYTES %) 1.0 0.0- 1.0 [facility] CenterAutomated blood neutrophil count 2019-09-26 20:58:00* Test Item Value Reference Range Interpretation Comments Neutrophils # (Auto) (test code = 751-8) 5.5 2.1-6.9 [facility] CenterBlood lymphocytes count (number/volume) 2019-09-26 20:58:00* Test Item Value Reference Range Interpretation Comments Lymphocytes # (Auto) (test code = 06341-1) 1.1 1.0-3.2 [facility] CenterBlood monocytes automated count (number/volume)2019-09-26 20:58:00* Test Item Value Reference Range Interpretation Comments Monocytes # (Auto) (test code = 742-7) 1.3 0.2-0.8 [facility] CenterAutomated blood eosinophil count 2019-09-26 20:58:00* Test Item Value Reference Range Interpretation Comments Eosinophils # (Auto) (test code = 711-2) 0.1 0.0-0.4 [facility] CenterAutomated blood basophil count (count/volume)2019-09-26 20:58:00* Test Item Value Reference Range Interpretation Comments Basophils # (Auto) (test code = 704-7) 0.0 0.0-0.1 [facility] CenterFluoroscopic procedure less than one hour jetlxddu2853-77-27 20:58:00* Test Item Value Reference Range Interpretation Comments Absolute Immature Granulocyte (auto (lam t code = Absolute Immature Granulocyte (auto) 0.08 0-0.1 [facility] or plasma sodium measurement (moles/volume)2019-09-26 20:58:00* Test Item Value Reference Range Interpretation Comments Sodium Level (test code = 2951-2) 136 136-145 [facility] Centererum or plasma chloride measurement (moles/volume)2019-09-26 20:58:00* Test Item Value Reference Range Interpretation Comments Chloride Level (test code = 2075-0) 102 98-107 [facility] Centererum or plasma carbon dioxide, total measurement (moles/volume)2019-09-26 20:58:00* Test Item Value Reference Range Interpretation Comments Carbon Dioxide Level (test code = 2028-9) 23 22-29 [facility] Centererum or plasma anion fef8942-76-97 20:58:00* Test Item Value Reference Range Interpretation Comments Anion Gap (test code = 15603-8) 15.1 8-16 [facility] Centererum or plasma urea nitrogen measurement (mass/volume)2019-09-26 20:58:00* Test Item Value Reference Range Interpretation Comments Blood Urea Nitrogen (test code = 3094-0) 5 7-26 [facility] Centererum or plasma creatinine measurement (mass/volume)2019-09-26 20:58:00* Test Item Value Reference Range Interpretation Comments Creatinine (test code = 2160-0) 0.61 0.57-1.11 [facility] Centererum or plasma urea nitrogen/creatinine mass buubo5563-84-21 20:58:00* Test Item Value Reference Range Interpretation Comments BUN/Creatinine Ratio (test code = 3097-3) 8 6-25 [facility] CenterEstimated glomerular filtration rate (GFR) tkvcbtiyykhct5719-98-18 20:58:00* Test Item Value Reference Range Interpretation Comments Estimat Glomerular Filtration Rate (test code = 367440219) > 60 >60 Ranges were taken from the National Kidney Disease Education Program and the [employer] literature.Reference ranges:60 or greater: Ivkymf87-10 ( for 3 consecutive months): Chronic kidney disease 15 or less: Kidney failureParis Regional Medical CenterGlucose mfiqnagcliz4511-15-40 20:58:00* Test Item Value Reference Range Interpretation Comments Glucose Level (test code = XIG9787) 127 74-118 [facility] Centererum or plasma calcium measurement (mass/volume)2019-09-26 20:58:00* Test Item Value Reference Range Interpretation Comments Calcium Level (test code = 10708-9) 8.6 8.4-10.2 [facility] Centererum or plasma magnesium measurement (mass/volume)2019-09-26 20:58:00* Test Item Value Reference Range Interpretation Comments Magnesium Level (test code = 51628-9) 1.5 1.3-2.1 [facility] Centererum or plasma thyroxine (T4) free measurement (mass/volume)2019-09-24 18:45:00* Test Item Value Reference Range Interpretation Comments Free Thyroxine (test code = 3024-7) 1.62 0.8-1.8 [facility] Centererum or plasma thyrotropin measurement by detection limit <= 0.005 miu/l (units/volume)2019-09-24 18:45:00* Test Item Value Reference Range Interpretation Comments Thyroid Stimulating Hormone (TSH) (test code = 00296-0) 0.409 0.350-4.940 [facility] CenterABDOMEN-1VIEW (KUB)2019-09-24 10:09:00 [facility] [address] [place] [address] Patient Name: TRINITY FERNANDEZ MR #: [id number] : 1960 Age/Sex: 58/F Req #: [id number] Adm Physician: ANTELMO HEART MD Ordered by: MAURO SOLIS MD Repor t #: [id number] Location: MED/SURG3 Room/Bed : [facility] Procedure: [id number] DX/ABDOMEN-1VIEW (KUB) Exam Date: 09/24/19 Exam Time: [...] MD Fluoroscopic procedure less than one hour ksmqfcpl9335-02-72 08:01:00* Test Item Value Reference Range Interpretation [...] complexity tests.Testing performed by [facility] [address] [place], [place] [id number] Director: Clyde Araujo M.D.CLIA # [id number] [facility] CenterCT ABDOMEN/PELVIS LU5599-68-76 15:22:00 [facility] [address] [place] [address] Patient Name: TRINITY FERNANDEZ MR #: [id number] : 1960 Age/Sex: 58/F Req #: [id number] Adm Physician: ANTELMO HEART MD Ordered by: MAURO SOLIS MD Report #: [id number] Location: MED/SURG3 Room/Bed: [facility] Procedure: [id number] CT/CT ABDOMEN/PE LVIS WO Exam Date: 09/19/19 [...] Signed By: MARIA VALLE MD on 09/19/19 152 Transcribed By: JOVANY on 09/19/19 1527 COPY TO: MAURO SOLIS MD Serum or plasma total bilirubin measurement (mass/volume)2019-09-18 05:56:00* Test Item Value Reference Range Interpretation Comments Total Bilirubin (test code = 1975-2) 0.6 0.2-1.2 [facility] CenterFluoroscopic procedure less than one hour jbagpueu7021-21-88 05:56:00* Test Item Value Reference Range Interpretation Comments Aspartate Amino Transf (AST/SGOT) (test code = Aspartate Amino Transf (AST/SGOT)) 26 5-34 [facility] Centererum or plasma alanine aminotransferase measurement (enzymatic activity/volume)2019-09-18 05:56:00* Test Item Value Reference Range Interpretation Comments Alanine Aminotransferase (ALT/SGPT) (test code = 1742-6) 23 0-55 [facility] Centererum or plasma protein measurement (mass/volume)2019-09-18 05:56:00* Test Item Value Reference Range Interpretation Comments Total Protein (test code = 2885-2) 5.9 6.5-8.1 [facility] Centererum or plasma albumin measurement (mass/volume)2019-09-18 05:56:00* Test Item Value Reference Range Interpretation Comments Albumin (test code = 1751-7) 3.3 3.5-5.0 [facility] CenterPlasma globulin measurement (mass/volume) 2019-09-18 05:56:00* Test Item Value Reference Range Interpretation Comments Globulin (test code = 41883-5) 2.6 2.3-3.5 [facility] Centererum or plasma albumin/globulin mass egyzv4871-88-71 05:56:00* Test Item Value Reference Range Interpretation Comments Albumin/Globulin Ratio (test code = 1759-0) 1.3 0.8-2.0 [facility] Centererum or plasma alkaline phosphatase measurement (enzymatic activity/volume)2019-09-18 05:56:00* Test Item Value Reference Range Interpretation Comments Alkaline Phosphatase (test code = 6768-6) 66 40-150 [facility] Centererum or plasma cancer antigen 19-9 measurement (units/volume)2019-09-18 05:56:00* Test Item Value Reference Range Interpretation Comments CA 19-9 Antigen (test code = 52457-4) 25 0-35 [facility] Electrochemiluminescence Immunoassay(ECLIA)Values obtained wit h different assay methods or kits cannotbe used interchangeably. Results cannot be interpreted asabsolute evidence of the presence or absence of malignantdisea se.Performed at: - [address] [id number]Lab Director: Josey Vazquez MD, Phone: [phone] Regional Medical CenterCHES XRAY LINE RSOZMFXSO2597-87-16 15:24:00 [place] [address] Patient Name: TRINITY FERNANDEZ MR #: [id number] : 1960 Age/Sex: 58/F Req #: [id number] Adm Physician: ANTELMO HEART MD Ordered by: MIRTA HART MD Report #: [id number] Location: MED/SURG3 Room/Bed: [facility] Procedure: [id number] DX/CHEST XRAY LI NE PLACEMENT Exam Date: [...] 3:25 PM Dictated By: ANDERS HOLLAND MD 1525 Transcribed By: JOVANY on 09/13/19 1525 DIRECTOR [employer] Y TO: MIRTA HART MD ABDOMEN-1VIEW (KUB)2019-09-11 07:13:00 [place] [address] Patient Name: TRINITY FERNANDEZ MR #: [id number] : 1960 Age/Sex: 58/F Req #: [id number] Adm Physician: ANTELMO HEART MD Ordered by: MAURO SOLIS MD Report #: [id number] Location: MED/SURG3 Room/Bed: [facility] Procedure: [id number] DX/ABDOMEN-1VIEW (KUB) Exam Date: 09/11/19 Exam Time: [...] TO: MAURO SOLIS MD ABDOMEN-1VIEW (KUB)2019-09-09 14:44:00 [place] [address] Patient Name: TRINITY FERNANDEZ MR #: [id number] : 1960 Age/Sex: 58/F Req #: [id number] Adm Physician: ANTELMO HEART MD Ordered by: MAURO SOLIS MD Report #: [id number] Location: MED/SURG3 Room/Bed: [facility]- Procedure: [id number] DX/ABDOMEN-1VIEW ([facility]) Exam Date: 09/09/19 Exam Time: 1422 REPORT STATUS: Signed EXAM: ABDOMEN-1VIE W ([facility]) DATE: 09/09/2019 2:22 PM INDICATION: Abdominal distention. COMPARISON: CT abdomen/pelvis from 09/02/2019. KUB 09-07-2019. FINDINGS/IMPR ESSION: Nonobstructive bowel gas pattern. [...] 2:46 PM Dictated By: NAVDEEP ROSAS MD 1446 Transcribed By: JOVANY on 09/09/19 1446 COPY TO: MAURO SOLIS MD ABDOMEN 2 QUOW2044-14-40 11:05:00 [place] [address] Patient Name: TRINITY FERNANDEZ MR #: [id number] : 1960 Age/Sex: 58/F Req #: [id number] Adm Physician: ANTELMO HEART MD Ordered by: MAURO FAUSTIN MD Report #: [id number] Location: MED/SURG3 Room/Bed: [facility] Procedure: [id number] DX/ABDOMEN 2 EW Exam Date: 09/07/19 Exam [...] MD 08 Transcribed By: LUCRECIA ROSSI on 09/07/19 110 COPY TO: MAURO FAUSTIN MD Blood platelets count by estimate (number/volume)2019-09-06 13:05:00* Test Item Value Reference Range Interpretation Comments Platelet Estimate (test code = 07647-9) ADEQUATE [facility] CenterPlatelet eyfqnsvvhp6563-02-07 13:05:00* Test Item Value Reference Range Interpretation Comments Platelet Morphology Comment (test code = 03370-1) FEW GIANT [facility] CenterBlood hypochromia detection by light ynjowlrjuf0359-31-56 13:05:00* Test Item Value Reference Range Interpretation Comments Hypochromasia (test code = 728-6) SLIGHT [facility] CenterBlood poikilocytosis detection by light dgyrqadsem3976-00-12 13:05:00* Test Item Value Reference Range Interpretation Comments Poikilocytosis (test code = 779-9) [facility] anisocytosis detection by light pduhstamxh5688-80-46 13:05:00* Test Item Value Reference Range Interpretation Comments Anisocytosis (test code = 702-1) [facility] HospitalRBC qwgosesskh7889-53-63 13:05:00* Test Item Value Reference Range Interpretation Comments Red Cell Morphology Comment (test code = 6742-1) [facility]PELVIS A4718-00-85 09:39:00 [facility] [address] [place] [address] Patient Name: TRINITY FERNANDEZ MR #: [id number] : 1960 Age/Sex: 58/F Req #: [id number] Adm Physician: ANTELMO HEART MD Ordered by: ANTELMO HEART MD Repor t #: [id number] Location: [facility]/SURG3 Room/Bed : [facility] Procedure: [id number] CT/CT ABDOMEN/PE LVIS W Exam Date: 09/02/19 Exam Time: 824 REPORT STATUS: Signed EXAM: CT Abdomen an d Pelvis WITH contrast INDICATION: Abdominal wall hernia related pain. COMPARISON: None. TECHNIQUE: Abdomen and pelvis were scanned utilizing a mu idetector helical scanner from the lung base to [...] limits set by the Radiation Protocol Com [facility] (RP). FINDINGS: Examination somewhat limited by streak [...] Kinase (test code = 2157-6) 61 29-168 [facility] Centererum or plasma creatine kinase MB measurement (mass/volume)2019-09-01 16:19:00* Test Item Value Reference Range Interpretation Comments Creatine Kinase MB (test code = 42653-7) 1.70 0-5.0 [facility] CenterTroponin I measurement by highly sensitive enzyme wfjemiyfayi0152-22-14 16:19:00* Test Item Value Reference Range Interpretation Comments Troponin I (test code = 87664-7) < 0.001 0-0.300 [facility] CenterFree thyroxine ufqfx9497-12-00 05:45:00* Test Item Value Reference Range Interpretation Comments Free Thyroxine Index (test code = 64409-0) 0.9630 1.4-3.8 [facility] Centererum or plasma thyroxine (T4) measurement (mass/volume)2019-09-01 05:45:00* Test Item Value Reference Range Interpretation Comments Thyroxine (T4) (test code = 3026-2) 2.67 4.5-10.9 Our current method for Total T4 is not recommended for use as the only marker fo r evaluating patients for thyroid disorders.[facility] Centererum or plasma triiodothyronine resin uptake (T3RU)2019-09-01 05:45:00* Test Item Value Reference Range Interpretation Comments Triiodothyronine (T3) Uptake (test code = 3050-2) 36.07 22.5 -37.0 [facility] CenterUrine color bkhlpzjqazhqc2500-37-62 21:45:00* Test Item Value Reference Range Interpretation Comments Urine Color (test code = 5778-6) YELLOW YELLOW [facility] CenterUrine sjumlhj8770-12-37 21:45:00* Test Item Value Reference Range Interpretation Comments Urine Clarity (test code = 50188-3) SL CLOUDY CLEAR [facility] Centerpecific gravity of Urine by Test strip 2019-08-31 21:45:00* Test Item Value Reference Range Interpretation Comments Urine Specific [place] (test code = 5811-5) 1.025 1.010-1.02 5 [facility] CenterUrine pH measurement by automated test wzpvc1332-90-91 21:45:00* Test Item Value Reference Range Interpretation Comments Urine pH (test code = 93626-0) 7.5 5-7 [facility] CenterUrine leukocyte esterase detection by kmsghexk4076-51-97 21:45:00* Test Item Value Reference Range Interpretation Comments Urine Leukocyte Esterase (test code = 5799-2) TRACE NEGATIVE [facility] CenterUrine nitrite qoxolxihn1245-89-45 21:45:00* Test Item Value Reference Range Interpretation Comments Urine Nitrite (test code = 80936-8) NEGATIVE NEGATIVE [facility] CenterUrine protein measurement by test strip (mass/volume)2019-08-31 21:45:00* Test Item Value Reference Range Interpretation Comments Urine Protein (test code = 5804-0) NEGATIVE NEGATIVE [facility] CenterUrine glucose hkdauxuer2765-44-39 21:45:00* Test Item Value Reference Range Interpretation Comments Urine Glucose (UA) (test code = 2349-9) 1+ NEGATIVE [facility] CenterUrine ketones detection by automated test eqoqk4619-91-25 21:45:00* Test Item Value Reference Range Interpretation Comments Urine Ketones (test code = 37678-1) NEGATIVE NEGATIVE [facility] CenterUrine urobilinogen measurement by test strip (mass/volume)2019-08-31 21:45:00* Test Item Value Reference Range Interpretation Comments Urine Urobilinogen (test code = 23481-5) 0.2 0.2-1 [facility] CenterUrine total bilirubin measurement (mass/volume)2019-08-31 21:45:00* Test Item Value Reference Range Interpretation Comments Urine Bilirubin (test code = 1978-6) NEGATIVE NEGATIVE [facility] CenterUrine erythrocytes dxrolesjz7906-41-82 21:45:00* Test Item Value Reference Range Interpretation Comments Urine Blood (test code = 62021-9) NEGATIVE NEGATIVE [facility] CenterAutomated urine sediment leukocyte count by microscopy (number/high power field)2019-08-31 21:45:00* Test Item Value Reference Range Interpretation Comments Urine WBC (test code = 5821-4) 0-5 0-5 [facility] CenterErythrocytes detection in urine sediment by light azuejhxlrt9488-56-03 21:45:00* Test Item Value Reference Range Interpretation Comments Urine RBC (test code = 67874-2) NONE 0-5 [facility] CenterBacteria detection in urine sediment by light cysqzdqlyy6181-65-56 21:45:00* Test Item Value Reference Range Interpretation Comments Urine Bacteria (test code = 41205-0) FEW NONE [facility] CenterEpithelial cells detection in urine sediment by light qibjyiupfz1483-40-40 21:45:00* Test Item Value Reference Range Interpretation Comments Urine Epithelial Cells (test code = 52962-6) MODERATE NONE [facility] CenterCHEST SINGLE (PORTABLE)2019-08-31 13:16:00 [facility] [address] [place] [address] Patient Name: TRINITY FERNANDEZ MR #: [id number] : 1960 Age/Sex: 58/F Req #: [id number] Adm Physician: Ordered by: SAM HASTINGS MD Report #: [id number] Location: ER Room/Bed: Procedure: [id number] DX/CHEST SINGL E (PORTABLE) Exam Date: 08/31/19 [...] 1:18 PM Dictated By: MARIA VALLE MD 17 Transcribed By: JOVANY on 08/31/198 COPY TO: SAM HASTINGS MD Prothrombin time (PT) in platelet poor plasma by coagulation erxmm8268-12-44 12:34:00* Test Item Value Reference Range Interpretation Comments Prothrombin Time (test code = 5902-2) 12.0 11.9-14.5 [facility] Platelet poor plasma by Coagulation qbosk8238-32-52 12:34:00* Test Item Value Reference Range Interpretation Comments Prothromb Time International Ratio (test code = 6301-6) 0.84 Oral Anticoagulant Therapy INR Values:1. Low Intensity Therapy 1.5 - 2.02 . Moderate Intensity Therapy 2.0 - 3.03. High Intensity Therapy(1) 2.5 - 3. 54. High Intensity Therapy(2) 3.0 - 4.05. Panic Value INR > 5.0 [facility] CenterActivated partial thromboplastin time (aPTT) in platelet poor plasma by coagulation limio3804-23-34 12:34:00* Test Item Value Reference Range Interpretation Comments Activated Partial Thromboplast Time (test code = 41084-0) 28.3 23.8-35.5 [facility] plasma triglyceride measurement (mass/volume)2019-08-31 12:34:00* Test Item Value Reference Range Interpretation Comments Triglycerides Level (test code = 2571-8) 114 0-149 [facility] plasma cholesterol measurement (mass/volume)2019-08-31 12:34:00* Test Item Value Reference Range Interpretation Comments Cholesterol Level (test code = 2093-3) 247 0-199 Less than 200 mg/dL Low Moqb754 - 239 mg/dL Borderline Trkx100 m g/dl and greater High Risk [facility] plasma cholesterol in LDL measurement (mass/volume) 2019-08-31 12:34:00* Test Item Value Reference Range Interpretation Comments LDL Cholesterol (test code = 2089-1) 160 60-130 [facility] plasma cholesterol in HDL measurement (mass/volume)2019-08-31 12:34:00* Test Item Value Reference Range Interpretation Comments HDL Cholesterol (test code = 2085-9) 64 40-60 [facility] or plasma total cholesterol/cholesterol in HDL mass tlypq2693-15-88 12:34:00* Test Item Value Reference Range Interpretation Comments Cholesterol/HDL Ratio (test code = 9830-1) 3.9 3.0-3.6 [facility] CenterBNP Lud-bQtq7752-54-28 12:34:00* Test Item Value Reference Range Interpretation Comments B-Type Natriuretic Peptide (test code = 87481-5) 35.1 0-100 [facility] or plasma lipase measurement (enzymatic activity/volume)2019-08-31 12:34:00* Test Item Value Reference Range Interpretation Comments Lipase (test code = 3040-3) 18 8-78 [facility] CenterURINE TKVADCQ5094-38-71 14:37:00* Test Item Value Reference Range Interpretation Comments CULTURE (BEAKER) (test code = 1095) <10,000 col/mL skin jack ONHN-IVR8747-84-02 09:28:00* Test Item Value Reference Range Interpretation Comments ACTIVATED CLOTTING TIME (BEAKER) (test code = 441) [address] [facility] [address] [facility] [address] CBC W/PLT COUNT & AUTO WRVBKLNLEEXH7274-47-53 04:56:00* Test Item Value Reference Range Interpretation [...] 0.01 K/ L 0. 00-0.20 0.00BASI METABOLIC ZGXAC6233-27-25 04:43:00* Test Item Value Reference Range Interpretation [...] IS NOT APPLICABLE FOR DIALYSIS PATIENTS. PROTHROMBIN TIME/EVO7208-18-39 04:32:00* Test Item Value Reference Range Interpretation Comments PROTIME (BEAKER) (test code = 759) 12.3 seconds 11.7-14.7 INR (BEAKER) (test code = 370) 0.9 <=5.9 RECOMMENDED COUMADIN/WARFARIN INR THERAPY RANGESSTANDARD DOSE: 2.0 - 3.0 Inclu zach: PROPHYLAXIS for venous thrombosis, systemic embolization; TREATMENT for billie ous thrombosis and/or pulmonary embolus.HIGH RISK: Target INR is 2.5-3.5 for pat ients with mechanical heart valves.URINALYSIS W/ JYSQEIISAXR8418-95-45 11:09:00 * Test Item Value Reference Range [...] Clean Catch CBC W/PLT COUNT & AUTO OCXOIIFDMALD0875-54-16 09:48:00* Test Item Value Reference Range Interpretation [...] (test code = 1678) Present BASIC METABOLIC CQZVS4148-67-96 07:53:00* Test Item Value Reference Range Interpretation [...] DIALYSIS PATIENTS. CBC W/PLT COUNT & AUTO TXGXEOCWOAZP9526-98-71 10:48:00* Test Item Value Reference Range Interpretation [...] (test code = 762) Normal BASIC METABOLIC YMKGW6305-69-26 06:46:00* Test Item Value Reference Range Interpretation [...] DIALYSIS PATIENTS. CBC W/PLT COUNT & AUTO GWPTBRDZASME9241-81-93 09:29:00* Test Item Value Reference Range Interpretation [...] code = 480) 2+ moderate BASIC METABOLIC [id number] 08:39:00* Test Item Value Reference Range Interpretation [...] IS NOT APPLICABLE FOR DIALYSIS PATIENTS. T4, UECM2662-27-22 15:06:00* Test Item Value Reference Range Interpretation Comments FREE T4 (BEAKER) (test code = 655) 1.26 ng/dL 0.70-1.48 TSH/FREE T4 IF VYMDJVSPB5879-28-20 14:38:00* Test Item Value Reference Range Interpretation Comments THYROID STIMULATING HORMONE (BEAKER) (test code = 772) 0.22 uIU/mL 0.35-4.94 L [id number] 14:14:00* Test Item Value Reference Range Interpretation Comments LIPASE (BEAKER) (test code = 749) 11 U/L 8-78 QEPSZKE4588-00-15 14:14:00* Test Item Value Reference Range Interpretation Comments AMYLASE (BEAKER) (test code = 349) 43 U/L 25-125 HEPATIC FUNCTION [id number] 14:14:00* Test Item Value Reference Range Interpretation [...] code = 347) 30 U/L 6-55 TROPONIN [id number] 07:12:00* Test Item Value Reference Range Interpretation [...] acute neurological disease, and pers istent tachyarrhythmia.TROPONIN M2837-06-53 01:13:00* Test Item Value Reference Range Interpretation [...] neurological disease, and pers istent tachyarrhythmia.BASIC METABOLIC CGEXB3260-71-15 18:25:00* Test Item Value Reference Range Interpretation [...] code = 697) 9.3 mg/dL 8.4-10.2 EGFR (TYLERAKER) (test code = 1092) 69 mL/min/1.73 sq m INSUFFICIENT CLINICAL DATA TO CALCULATE ESTIMATED GFR. CREATINE KINASE (CK), TOTAL AND [id number] 18:22:00* Test Item Value Reference Range Interpretation Comments CREATINE KINASE TOTAL (VANESA) (test code = 380) 95 U/L 29-20 0 CREATINE KINASE-MB (TYLERAKER) (test code = 750) 1.7 ng/mL 0.0-6.6 CREATINE KINASE-MB INDEX (VANESA) (test code = 395) 1.8 % Effective 02/20/2014: CK-MB Reference Range ChangeNew: 0.0-6.6 Previous: 0.0- 4.9CK-MB Reference Range:<6.7 Normal6.7-10.0 Borderline>10.0 Abnormal TROPONIN [id number] 18:22:00* Test Item Value Reference Range Interpretation [...] (test code = 700) 27 pg/mL 0-100 PT/[id number] 18:05:00* Test Item Value Reference Range Interpretation [...] mechanical heart valves.CBC W/PLT COUNT & AUTO ZNJBTVZWTJYG1726-52-67 18:00:00* Test Item Value Reference Range Interpretation [...] 417) 0.13 K/ L 0. 00-0.20 0.00CARDIAC UOTMWGR2999-15-72 17:27:0063[facility] ENZYMES 2016-04-12 17:27:00<0.02[facility] MQFVZLJ4870-98-97 06:58:0027 [facility] QAVWDGM2478-25-60 06:58:00<0.02[facility]AC XMOCJYF6548-24-44 06:58:000.7[facility]annCARD[facility]AC REVDWSE0957-06-24 06:58:00 87[facility]CARD[facility]AC KXBWKFQ2271-64-45 06:58:000.8[facility]annCHEM TJKDT9102-53-51 06:58:81358Oodetgwu HermannCHEM VSTAF0024-12-42 06:58:0099 [facility]annCHE[facility] WZXTZ7737-50-34 06:58:000.69[facility]annCHEM PANEL 2016-04-12 06:58:96300Zabrwfsw HermannCHEM ILYNM7922-29-14 06:58:0096[facility]annCHEM ZTWTM1392-34-69 06:58:0022[facility]annCHEM LLOKF0034-21-30 06:58:82126Ohurvzke HermannCHEM PVGMH9494-49-20 06:58:0087[facility]annCHEM XQFGZ1860-16-44 06:58:004.3[facility]annCHEM GEBUW6466-25-54 06:58:0021 [facility]annCHE[facility] ADRAL9521-58-84 06:58:000.4[facility]annCHEM PANEL 2016-04-12 06:58:0022[facility]annCHEM LRWMB5852-00-93 06:58:008.8[facility]annCHEM GOSWX1553-99-49 06:58:006.6[facility]annCHEM LVEUJ0987-96-36 06:58:0032[facility]annCHEM DMMNO3283-66-68 06:58:0012.3[facility]annCHEM HCGYQ9810-23-13 06:58:003.4[facility]annCHEM SLLSB6738-32-54 06:58:000.9 [facility]annCHE[facility] XPEHW4842-52-10 06:58:003.2[facility]annCHEM PANEL 2016-04-12 06:58:0024[facility] SeixkjbFWAYFWHOOY5325-89-73 06:58:00* Test Item Value Reference Range Interpretation Comments PT (test code = PT) 12.1 s 12.0-14.7 [facility] GbqhvhwWVHQYPRNPG0402-64-17 06:58:000.88[facility]annHEMATOLOGY 2016-04-12 06:58:00* Test Item Value Reference Range Interpretation Comments PTT (test code = PTT) 25.1 s 22.9-35.8 [facility] FotqctkSRJKQHIXQT8189-24-46 06:35:93582Avztrfnp HermannHEMATOLOGY 2016-04-12 06:35:008.0[facility] IjfazgyPUPPPIYGEX7252-24-69 06:35:0034.0[facility] ZdxmmaiUXTMCOYBWX2150-69-16 06:35:0014.9[facility] XzppjlsFDNVYTKKRG4959-23-47 06:35:00* Test Item Value Reference Range Interpretation Comments MCH (test code = MCH) 31.9 pg 27.0-31.0 [facility] RcgfadtHHVGAVUGCU0717-35-22 06:35:0036.7[facility]annHEMATOLOGY 2016-04-12 06:35:0093.8[facility] SnvxarcOXJZWAUHPX7083-51-44 06:35:008.8[facility] CwnwdntXDDOUDDJUM6041-40-99 06:35:0012.5[facility] TnhlfujWBUEEXPHIM3436-02-85 06:35:003.92[facility] QtgseuvSWEAVXFLXY5265-74-65 06:35:004.7[facility] DZMHQFOQJA1916-00-46 06:35:000.6[facility] EcwnrwaJYUIQCOUGS0967-16-64 06:35:000.3 [facility] RokmwltLCKCOQWFWP9634-11-62 06:35:000.2[facility]annHEMATOLOGY 2016-04-12 06:35:0034.8[facility] VgkbuicKJGKHBRUQJ8449-33-44 06:35:003.1[facility] CdgfmboWCIWXMMKGZ9585-32-33 06:35:006.9[facility] TwqzjcuHUVVHNCVUG3139-74-87 06:35:001.7[facility] AvvazdbZQLVOEAZOF8912-79-95 06:35:0053.2[facility] WOUCYIJEXX6241-39-95 06:35:003.4[facility] HermannDRUG TLFDII6566-65-43 06:13:00 See Note (04/12/16 12:13 AM)[facility]annDRUG ROEXKV0392-33-11 06:13:00Negative *NA*(04/12/16 12:13 AM)[facility]annDRUG WWEEGH4515-96-44 06:13:00Negative *NA*(04/12/16 12:13 AM)[facility]annDR[facility] GOVYZA7370-92-53 06:13:00Negative *NA*(04/12/16 12:13 AM)[facility]annDR[facility] MHEHKR6818-70-54 06:13:00Positive *ABN*(04/12/16 12:13 AM)[facility]annDR[facility] ZHERIF3891-09-00 06:13:00Positive *ABN*(04/12/16 12:13 AM)[facility]annDR[facility] XITELN3689-27-68 06:13:00Negative *NA*(04/12/16 12:13 AM)[facility]annDRUG HBRBKW8920-86-51 06:13:00Negative *NA*(04/12/16 12:13 AM)[facility]annUR[facility] AND ANKWK0168-32-00 06:13:00Negative *NA*(04/12/16 12:13 AM)[facility] AND GQESL1708-30-21 06:13:00Negative (04/12/16 12:13 AM)[facility] AND JVBZX6439-11-43 06:13:00Negative (04/12/16 12:13 AM)[facility] AND JBOJE4241-38-00 06:13:004[facility]UR[facility] AND KRHEE8164-94-57 06:13:00Trace *ABN*(04/12/16 12:13 AM)[facility] AND DRSDL5277-36-74 06:13:002[facility] AND STOOL 2016-04-12 06:13:006.0[facility]annUR[facility] AND BAEVS1301-29-29 06:13:001.020 [facility] AND RRBKG6582-77-71 06:13:00Clear (04/12/16 12:13 AM) [facility]annCARDIAC RHRVICO4315-27-74 10:52:0089[facility]annCARDIAC GXRGULJ1628-88-84 10:52:00<0.02[facility]annCARDIAC ZTBZTYV2769-88-86 10:52:001.5[facility]annCARDIAC WGHQWRZ5200-91-48 10:52:001.3[facility] CHEM KLJJY0760-36-92 10:52:0099[facility]annCHEM YINNB5797-12-57 10:52:0012 [facility]annCHEM DGRPF9376-35-35 10:52:000.7[facility]annCHEM PANEL 2014-12-08 10:52:17689Qykqtnjb HermannCHEM ELJVJ6176-31-07 10:52:90560Zkfassiq HermannCHEM WJHQZ3115-13-20 10:52:004.0[facility] HermannCHEM BQHPE9031-70-76 10:52:0021[facility]annCHEM MHQOW9508-95-48 10:52:19715Smekqslw HermannCHEM XLOVC4964-35-64 10:52:008.7[facility] HermannCHEM HOJHQ9090-31-46 10:52:0013.0 [facility] EqyrdfxHBBAHRVJAR9700-41-96 10:52:41877Viyykfaq HermannHEMATOLOGY 2014-12-08 10:52:0016.5[facility] DlwdrgcLTQFEWGYCM4052-21-28 10:52:007.9[facility] StysozjHRQZNJDTNQ2415-62-97 10:52:0038.0[facility] DzscecfYUIXWEIWOZ7204-70-36 10:52:0082.9[facility] BkhxskzQCUGTZZFZM9237-91-94 10:52:00* Test Item Value Reference Range Interpretation Comments MCH (test code = MCH) 27.0 pg 27.0-31.0 [facility] EetdrroRPGPRFQITU1545-63-97 10:52:0032.6[facility] HermannHEMATOLOGY 2014-12-08 10:52:006.0[facility] WrvvgwlCHYDZGADTN9339-94-89 10:52:004.59[facility] PekyttmEVXSSRCONF1610-97-76 10:52:0012.4[facility] OzisufeBOWIGHYWNR1344-46-55 10:52:002.5[facility] EngbaecTNEDFUNQHU8573-99-75 10:52:002.5[facility] SFPVHQSKLU5885-98-38 10:52:000.3[facility] FinuoikBCSFCGGQKF1533-16-84 10:52:000.6 [facility] MdqxgpgQXUOLKSNXV5855-03-50 10:52:000.1[facility] HermannHEMATOLOGY 2014-12-08 10:52:0042.1[facility] PbolpapTUVBQXTJHU1139-68-47 10:52:0010.5[facility] KkdmmvjUTHVLMDRWO9358-99-10 10:52:001.1[facility] FfwazsiAUTNLFXAEP1314-58-83 10:52:004.2[facility] YkraifuGGWKYLEEXI3370-19-99 10:52:0042.1[facility] KEZAJG4650-11-64 10:52:0031[facility] YkqcnleJWVGTC7982-74-90 10:52:52257Lvmqvcwi PfpnokhLZQPWL2523-07-97 10:52:0043[facility] LqciubiLJSWNR6056-77-19 10:52:58447 [facility] SrtfftmPJWOHM5676-43-19 10:52:06160Hrhmwifj TkxylrgSUZQAD7542-57-89 10:52:006.70[facility]annCARDIAC AEDKFXA9281-98-43 02:43:00<0.02[facility]annCHEM QGYPL7624-65-00 02:43:0064[facility]annCARDIAC INXGSHT8847-34-86 01:57:258[facility]annCARDIAC DBXNYIR2074-32-53 22:48:00<0.02[facility] CARDIAC VVMOHTG9539-33-72 22:48:000.9[facility]annCARDIAC ISFWRYB5714-08-76 22:48:001.1[facility]annCARDIAC URBZVJA7823-06-38 22:48:27638Jufzywfx [facility] CHEM RUEFY0340-02-88 22:48:003.6[facility] HermannCHEM GDALZ1908-15-44 22:48:0064 [facility]annCHEM WBACB7443-56-44 22:48:001.0[facility]annCHEM PANEL 2014-12-07 22:48:009.4[facility]annCHEM XXCXZ1156-64-17 22:48:000.9[facility]annCHEM UZIWM8957-99-41 22:48:004.1[facility]annCHEM RMRME9734-77-70 22:48:007.7[facility]annCHEM SRNEJ6407-73-16 22:48:000.5[facility]annCHEM VFFKU0794-26-98 22:48:11857Wbfekivn HermannCHEM XHFMW7821-38-69 22:48:004.1 [facility]annCHEM KRTDN7687-21-07 22:48:80669Eaondkxs HermannCHEM PANEL 2014-12-07 22:48:0031[facility] HermannCHEM YFPBW0928-54-15 22:48:0055[facility] HermannCHEM LCZDA6194-70-97 22:48:0014[facility] HermannCHEM KUARD4662-55-44 22:48:0014[facility] HermannCHEM KWJYT7470-04-03 22:48:0097[facility]annCHEM BPZDB3239-92-86 22:48:0012.1[facility]annCHEM NLQMA0472-16-84 22:48:0025 [facility]annCHEM PQWMV4991-93-84 22:48:35159Ygyhqsor HermannHEMATOLOGY 2014-12-07 22:48:00* Test Item Value Reference Range Interpretation Comments PTT (test code = PTT) 29.0 s 22.9-35.8 [facility] BttotrlBOEPDTOWOB3070-73-21 22:48:00* Test Item Value Reference Range Interpretation Comments PT (test code = PT) 13.5 s 12.0-14.7 [facility] XzbfnzbCXBIJRONSA5519-30-59 22:48:001.00[facility]annHEMATOLOGY 2014-12-07 22:48:003.1[facility] UegcuhaELIUWQYMLR6062-07-47 22:48:000.1[facility] NrjhzwhMDKMRVCPPP9986-38-43 22:48:000.6[facility] CjgbeqxIHFAMZSFBL2650-13-57 22:48:002.7[facility] MbaowibYPGOMAVSAJ9219-02-74 22:48:000.6[facility] SMFDTXEBIR7245-73-83 22:48:009.1[facility] LgkpjesZVRPQGOYYV4305-96-95 22:48:002.2 [facility] HwqmsfeDFKMNGWWBO4343-64-30 22:48:0041.1[facility]annHEMATOLOGY 2014-12-07 22:48:0047.0[facility] XmqggsoQBRAJLLKJG1420-07-97 22:48:008.0[facility] RrkovflSGRBZWKMAL5058-40-98 22:48:0032.5[facility] XpodemfUYKMGRPFEN7027-64-53 22:48:0016.5[facility] EeseikwYBHUFYRLZU6737-15-83 22:48:39009Yfdyrpys [place] IBCRGWTFWQ9538-88-06 22:48:0038.9[facility] WybphydBEJEDLBXHV5171-14-57 22:48:00 82.8[facility] JyzwykaLIVBCVXUQA5034-70-44 22:48:00* Test Item Value Reference Range Interpretation Comments MCH (test code = MCH) 26.9 pg 27.0-31.0 [facility] ZychukoLBVSMWCHTI9677-18-20 22:48:006.6[facility]annHEMATOLOGY 2014-12-07 22:48:004.70[facility] CvxocegPVQKGFJBQJ2363-62-85 22:48:0012.6[facility] OadsmkzWVUMUDORYLEJ7082-08-77 10:15:0013.1[facility] HermannELECTROLYTES 2014-11-30 10:15:33766Umnnptcu KzmcbywDNBSFMENAJNT6799-96-94 10:15:0018[facility] KvrkcgxSJMOCBPOCPYM7973-61-27 10:15:0024[facility] VkjbbvpWSYMORNKCIHH3461-01-97 10:15:64542Aarndjre IofoouzZEPYZYTXJBYU2926-67-60 10:15:34180Tywbqpvz [place] LIPOODJLHSCH7807-07-65 10:15:004.1[facility] AubxppwXKEDJBZLRVGR8249-39-99 10:15:0073[facility] BhdbajxXNYQRKYOEKSH5606-84-27 10:15:000.9[facility] AFGLIYMJAGKX4159-25-97 10:15:008.6[facility] DntvcvcFGQQRRHCCK6210-71-88 10:15:00 0.3[facility] OpenbmbNKZPUMZRAL2402-76-43 10:15:000.4[facility]annHEMATOLOGY 2014-11-30 10:15:002.9[facility] WvnhjtmOVXBSOLNKV6892-63-39 10:15:000.6[facility] FrdnwawMBJLZDROYK0945-96-10 10:15:005.0[facility] SgypnmoOVEVHAEYDH4773-85-27 10:15:002.0[facility] VajrcbpWRUCVCLIJB0718-55-35 10:15:0032.0[facility] LDODQDURPH8041-07-66 10:15:0046.7[facility] PvbejmfMMYLLKSNFR6274-92-01 10:15:00 10.2[facility] MonwzmdKBGJCNSOUP4538-53-95 10:15:006.1[facility]annHEMATOLOGY 2014-11-30 10:15:008.0[facility] VpvjzqtUSUTECIVTE9530-37-00 10:15:0016.1[facility] BvhfcsbPQPCJKJHQF1969-23-05 10:15:34807Klpttgjf WkpbqeiIAHYMDIJUA5251-53-91 10:15:00* Test Item Value Reference Range Interpretation Comments MCH (test code = MCH) 28.3 pg 27.0-31.0 [facility] TgaepfjJHYUVPFMOS2720-74-90 10:15:0033.8[facility]annHEMATOLOGY 2014-11-30 10:15:0083.7[facility] NwqcamjMDKANHAHXM7627-20-15 10:15:0033.9[facility] QlivsedWMYJAXSOOQ3172-08-44 10:15:004.05[facility] PmhrkndKXLUJDBQYH9980-43-18 10:15:0011.5[facility] VteoqkmTRADPYMBTW8069-34-68 10:15:006.1[facility] HermannCHEM ZGGVD4444-30-19 09:33:0073[facility] HermannCHEM ZRKYU0326-47-23 09:33:0013 [facility]annCHEM QOYLV8554-74-33 09:33:0026[facility] HermannCHEM PANEL 2014-11-28 09:33:000.9[facility] HermannCHEM UQTVJ0267-42-23 09:33:47709Dcrzhalo HermannCHEM QBJBV7442-63-09 09:33:008.8[facility] HermannCHEM UMCUZ3761-63-78 09:33:18110Wipvkqxl HermannCHEM RSZSI7790-93-36 09:33:003.7[facility] HermannCHEM GZPJG2816-53-42 09:33:32436Ihmtoojx HermannCHEM IEEUP0945-11-31 09:33:0014.7 [facility]annCHEM BCUMG4369-75-92 09:33:000.3[facility]annCHEM PANEL 2014-11-28 09:33:000.4[facility] HermannCHEM WRQTS6151-01-62 09:33:000.1[facility] HermannCHEM OLYNB7463-11-77 09:33:0026[facility]annCHEM GIFQW2056-00-93 09:33:06729Lpicdujf [facility]annCHEM XSNDX2229-29-00 09:33:003.0[facility]annCHEM PTNHD0059-37-12 09:33:001.0[facility]annCHEM ZPCFF8550-08-98 09:33:005.9 [facility]annCHEM MCGGJ0746-20-03 09:33:002.9[facility]annCHEM PANEL 2014-11-28 09:33:0049[facility] DkqrmsqOCVECKLDYS8397-66-63 09:33:007.7[facility] UucjyqrHPIIEVUWJS7021-49-92 09:33:0036.5[facility] PljaureWDJKXJUDPO4417-64-37 09:33:0012.5[facility] RaqxcrgCSDEJFUFCV9678-10-58 09:33:004.47[facility] SAJGKBNLDA4114-71-09 09:33:83054Zckoepeb CirvutyTGVZEXJTUE8045-43-61 09:33:00 16.0[facility] EcbebczFOBOANAXEN1047-49-04 09:33:0034.3[facility]annHEMATOLOGY 2014-11-28 09:33:00* Test Item Value Reference Range Interpretation Comments MCH (test code = MCH) 28.0 pg 27.0-31.0 [facility] TrxuqgbUNKYUHETFH3689-52-65 09:33:0081.7[facility]annHEMATOLOGY 2014-11-28 09:33:005.9[facility] WizzdhuPYBXIRPIRE5393-26-50 09:33:0010.2[facility] NjbzoodKPKYBDJHNT0387-17-65 09:33:0036.4[facility] SvzcpdpKFEDWUYBAV0245-85-27 09:33:0045.5[facility] XcjnwvqDBHIPLNTJM7357-92-93 09:33:000.1[facility] UQWSFUWYCW1317-35-75 09:33:000.3[facility] PcztpmrUQPRVOADOG1220-18-46 09:33:000.6 [facility] XwjigxgDCJGXMOADA9624-33-95 09:33:002.2[facility]annHEMATOLOGY 2014-11-28 09:33:002.7[facility] MdfvkowKJWBMVURAN9738-40-07 09:33:002.5[facility] DnssmhzXDBLEWZCMI0744-19-35 09:33:005.4[facility] HermannCHEM ZJROO3091-77-82 08:31:98817Uqdtrnuq UgtgruvMDEOQSNYZDZX6964-33-89 08:31:78035Ukjaxiem [place] JWAYMSEYTVBL9960-28-24 08:31:003.5[facility] DoshvbeQJSLXPRWTIUX4839-44-60 08:31:45741Lxzlgvpr QembwrrUEMQLRUMLFUA3506-22-58 08:31:0084[facility] RQALPANCALBR3307-20-61 08:31:003.1[facility] KgocscyVWAKDDXEBNTA5750-54-16 08:31:91033Okjvzypq SudnahjALFWRZUZTYLZ2521-31-39 08:31:000.5[facility] YAILCRWQGNKP0742-59-70 08:31:0095[facility] WmuqhulQISPBEITRVUI4217-58-19 08:31:00 63[facility] GuypegeKFAVUSTUCIMD3538-34-35 08:31:0089[facility] HermannELECTROLYTES 2014-11-25 08:31:009[facility] LlwahkoOFDMZZUHYIZW7438-54-76 08:31:000.8[facility] PvppsbrHTOGIJNIUDWF2316-00-85 08:31:006.6[facility] TrivzyiVPNCILDVPIRL8942-90-46 08:31:0021[facility] NtukbdtTQAGBBSOXUMH5275-79-06 08:31:008.4[facility] FPXMGEWCKUZL2733-96-47 08:31:000.9[facility] TzzohvvEGNQVICGJOAD6208-46-16 08:31:0013.5[facility] PovmjivJVDZXULIPUIF0077-99-25 08:31:0011[facility] WYGMUALQNPOE8739-65-29 08:31:003.5[facility] JltnifkFQIXCJLCWO2859-43-49 08:31:00 5.9[facility] DzbhgfsRKJMFQACNQ7155-38-76 08:31:0082.2[facility] HermannHEMATOLOGY 2014-11-25 08:31:004.42[facility] KddihxqIUCLWMGZAW9878-81-61 08:31:0036.3[facility] ZzlfhacDKCYKPHVVH3606-28-99 08:31:0012.3[facility] EqeyqqdWFWTCVWEDM9971-59-26 08:31:007.9[facility] WhltdorSYPKBIIHDU0816-82-87 08:31:0033.8[facility] OWDGYJTSPK9241-54-75 08:31:00* Test Item Value Reference Range Interpretation Comments MCH (test code = MCH) 27.8 pg 27.0-31.0 [facility] KbnkhcaFOJAFRSXEB3784-39-61 08:31:10345Zeurirmk HermannHEMATOLOGY 2014-11-25 08:31:0016.0[facility] QnrubzhKRULKYAIEF6545-70-59 08:31:003.1[facility] HgyiboxESLGFFXBFZ5117-34-68 08:31:001.9[facility] JacsymkQFVNIWHZBO5512-00-23 08:31:000.3[facility] PjunlxdGRBAQHBURM7076-72-59 08:31:000.1[facility] MLEDJRKWAA8037-02-12 08:31:000.4[facility] JqrzornLJGLYLXHEB9921-41-12 08:31:007.1 [facility] MsrfyrlSCMQVUMAHH3036-04-03 08:31:0053.4[facility] HermannHEMATOLOGY 2014-11-25 08:31:002.1[facility] IhaaiibLDDGUUBNUS8495-13-20 08:31:004.6[facility] WjlxbulLYVLBDRBZL4078-96-26 08:31:0032.8[facility] HermannCHEM SOROA0251-09-31 00:47:001.9[facility] HermannCHEM UAMZV4398-34-67 00:47:0050[facility] HermannCHEM GKVQR2327-23-68 00:47:81082[place]tv[place]iga HermannCHEM VDQWO7723-12-37 00:47:003.4 [facility]annCHEM AUTGT8731-46-61 00:47:0012[facility] HermannCHEM PANEL 2014-11-25 00:47:000.9[facility] HermannCHEM ZGAKF8309-94-07 00:47:000.6[facility] HermannCHEM WGPDO4744-91-83 00:47:96347Wohkgqez HermannCHEM QBETO6900-77-42 00:47:0083[facility] HermannCHEM TKKCP7476-44-54 00:47:003.2[facility] HermannCHEM GEJQN1371-94-75 00:47:91110Oavcotrr HermannCHEM OJHYA7324-79-62 00:47:006.6 [facility]annURINE AND LMKGV8370-37-43 04:47:001[facility]annURINE AND EGWBN5932-05-83 04:47:00Clear (11/23/14 11:47 PM)[facility]annUR[facility] AND STOOL 2014 04:47:001.023[facility]annURINE AND WNHLA2008-75-90 04:47:00Yellow *NA*(11/23/14 11:47 PM)[facility]ann[facility] AND UWCNQ4694-83-80 04:47:00 Negative *NA*(11/23/14 11:47 PM)[facility]ann[facility] AND DWIKG2286-26-61 04:47:005.0[facility]annURINE AND YOKPV3032-60-35 04:47:0012[facility] URINE AND VOEZY5930-89-55 04:47:00Trace *ABN*(11/23/14 11:47 PM)[facility] URINE AND UEUJA6807-95-98 04:47:00Negative (11/23/14 11:47 PM)[facility] URINE AND PYBGG4139-44-16 04:47:00Negative (11/23/14 11:47 PM)[facility] CARDIAC VSVAPQH4503-93-16 01:15:001.0[facility] HermannCARDIAC DELQETE9264-15-33 01:15:000.8[facility] HermannCARDIAC JBNTSGS8685-53-73 01:15:0081[facility] CARDIAC QIBISSS7408-90-22 01:15:00<0.02[facility] HermannCHEM AWDZA5422-63-91 01:15:001.0[facility] HermannCHEM BUAKP5181-63-61 01:15:30609Vrsryioa HermannCHEM NBYRA5393-36-10 01:15:0086[facility] DwcbfhoSONYLCDQQQ9310-34-21 20:06:000.91 [facility] WyeayjwGCFPFRBRFE1050-00-61 20:06:00* Test Item Value Reference Range Interpretation Comments PT (test code = PT) 12.2 s 12.0-14.7 [facility] XcxqdahHGFQHSEOAH2677-80-70 20:06:00* Test Item Value Reference Range Interpretation Comments PTT (test code = PTT) 29.7 s 22.9-35.8 [facility] HermannCARDIAC KDEONIZ4082-38-12 19:19:009[facility] HermannCARDIAC KDTTNGE7778-75-52 19:19:00<0.02[facility] HermannCARDIAC RVTJOMP5925-14-66 19:19:0077[facility] HermannCARDIAC HAQVJZO4719-84-92 19:19:000.9[facility] CARDIAC EMNVPAV4352-15-82 19:19:001.2[facility] HermannCHEM PPNFL4525-88-00 19:19:001.7[facility] HermannCHEM UHVRZ8543-58-50 19:19:0019[facility] CARDIAC NYTSBSA3823-76-28 15:02:0067[facility] HermannCARDIAC BTYJSRA6627-01-86 15:02:00<0.02[facility]annCARDIAC WPNXQNH6778-61-11 10:33:0062[facility] HermannCARDIAC RBPJZDQ2883-11-55 10:33:00<0.02[facility] ZhkwrtmEQCEKN6606-50-97 10:33:0029[facility] GgiugppCOIAHA3784-65-08 10:33:22866Ldszabaq HermannLIPIDS 2014-09-18 10:33:32906Svgbvqiq EeilxhuYKGIEA2617-43-81 10:33:003.86[facility] UkchbvkWZCEJC2291-65-13 10:33:76218Qlyduvkp PivjhvoLVQIEC9500-15-34 10:33:0059 [facility]annCARDIAC MWIMIND5736-53-14 04:21:00<0.02[facility] HermannCARDIAC MCOCTII5125-77-10 04:21:0059[facility] HermannCHEM TUPIL4535-20-95 04:21:0085 [facility]annCHEM FIVKA3924-48-71 04:21:000.8[facility] HermannCHEM PANEL 2014-09-18 04:21:003.6[facility] HermannCHEM [id number] 04:21:72391Zpegywws HermannCHEM SIBBD4475-94-12 04:21:73404Oedscvjf HermannCHEM JSMAN6769-50-43 04:21:008.6[facility] HermannCHEM NJUUJ0479-93-71 04:21:0019[facility] HermannCHEM GAZTX0000-57-49 04:21:0027[facility] HermannCHEM FVZAF1942-62-67 04:21:0025 [facility] HermannCHEM AZNNK9342-33-70 04:21:003.6[facility] HermannCHEM PANEL 2014-09-18 04:21:006.8[facility] HermannCHEM NVWKG7663-29-05 04:21:000.3[facility] HermannCHEM KIYNJ7231-31-42 04:21:0092[facility] HermannCHEM MNNJF1197-67-89 04:21:0018[facility] HermannCHEM HQPYR4303-58-10 04:21:60207Njwyjtzs HermannCHEM ENEWZ1589-53-29 04:21:003.2[facility] HermannCHEM KCVBJ8740-08-07 04:21:0022 [facility]annCHEM WRVGQ5350-01-55 04:21:0010.6[facility] HermannCHEM PANEL 2014-09-18 04:21:001.1[facility] DatisxfWMQECNCENL9316-45-03 04:21:00* Test Item Value Reference Range Interpretation Comments PTT (test code = PTT) 28.8 s 22.9-35.8 [facility] LtdmtqkSKFODNXAET0310-53-22 04:21:00* Test Item Value Reference Range Interpretation Comments PT (test code = PT) 12.5 s 12.0-14.7 [facility] DnsnfjmPAQVRGTUNF3268-67-89 04:21:000.94[facility] HermannHEMATOLOGY 2014-09-18 04:21:007.4[facility] YunvellFAGKXDAHGH5434-45-31 04:21:0034.1[facility] FqgkfqjYYVUGXWTJU0381-52-25 04:21:0016.8[facility] PgactfyKHZKJYKBTS5633-97-40 04:21:01144Omwwrmyu HoitrpnDLABKFIDCW7306-19-14 04:21:0011.4[facility] EUVHOGXSHJ8870-82-13 04:21:0083.0[facility] WhqoyxfVAUKMMYOVI2867-36-82 04:21:00* Test Item Value Reference Range Interpretation Comments MCH (test code = MCH) 28.3 pg 27.0-31.0 [facility] BqodlejAQOLLJIQYV2800-92-61 04:21:0033.4[facility] HermannHEMATOLOGY 2014-09-18 04:21:004.03[facility] FbbiphxICLQKPNXXI6051-60-32 04:21:007.0[facility] AdqtbtgUGFMSLIOHK5355-66-14 04:21:003.7[facility] EqzcflhWGIBAQULTG3788-30-55 04:21:000.6[facility] JpbmncrVEWITJTZFH6571-81-13 04:21:000.1[facility] ENCZRQCWIH9530-44-45 04:21:0052.2[facility] TesmwilEKKIKUSJTK3685-41-74 04:21:00 0.2[facility] RmzmsxfPCKISAKIBM4827-75-76 04:21:001.8[facility] HermannHEMATOLOGY 2014-09-18 04:21:002.6[facility] KlwkcnqKOGCFVNGEV5409-86-08 04:21:008.1[facility] JzkpkkbEZPMHRWMVI5511-42-55 04:21:0037.7[facility]
[2019-11-20] MEDS: HYDRALAZINE HCL 20 MG/ML VIAL IV PRN ×2 (15:45→18:52)
--- NOTE | 2019-11-20 16:10 | NUR ---
RCD PT FROM ER BY BED PT IS ALERT AND ORIENTED VITALS CHECKED PT RESTING ON BED IV PATENT BY SALINE FLUSH ADMISSION ASSESSMENT AND HISTORY DONE ,INSTRUCTED THE PATIENT REGARDING HOSPITAL POLICY AND ROUTINE AND VISITING POLICY ,BED LOW AND LOCKED CALL LIGHT IN REACH
[2019-11-20 16:40] VITALS: BP 159/98
[2019-11-20 16:51] VITALS: BP 159/98
[2019-11-20] MEDS: NITROGLYCERIN 2% OINT 1 GM PKT TOP SCH ×2 (17:03→23:57)
--- NOTE | 2019-11-20 17:46 | NUR ---
PAGED AND NOTIFIED LURDES CASE TO RENEW THE HOME MEDS
[2019-11-20] MEDS ORDERED: SENNOSIDES 8.6 MG TAB PO PRN (18:00)
[2019-11-20] MEDS ORDERED: POTASSIUM CHLORIDE 20 MEQ TAB CR PO ONE (18:00)
[2019-11-20] MEDS ORDERED: METOPROLOL TARTRATE INJ 1 MG/ML VIAL IV PRN (18:00)
[2019-11-20] MEDS: DOCUSATE SODIUM 100 MG CAP PO SCH (18:00)
[2019-11-20] MEDS: LISINOPRIL 10 MG TAB PO SCH (18:15)
[2019-11-20 18:54] LABS: CREATINE KINASE MB 1.3 ng/mL (0-5.0)
--- NOTE | 2019-11-20 19:00 | NUR ---
PT C/O CHEST PAIN NITROSTAT O.4 MG S/L GIVEN AND NOTIFIED LURDES RAILROAD OPERATOR NO NEW ORDERS
--- NOTE | 2019-11-20 19:00 | NUR ---
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
--- NOTE | 2019-11-20 19:25 | NUR ---
PT RESTING ON BED BED SIDE REPORT GIVEN TO ONCOMING NURSE
[2019-11-20] MEDS ORDERED: ULTRAM50 MG PO (19:38)
--- NOTE | 2019-11-20 19:43 | NUR ---
TALKED TO PARISH PHARMACIST NAME CO HE CANNOT DETECT HER NAME NOTIFIED TO LURDES
[2019-11-20 20:00] VITALS: BP 139/91
[2019-11-20] MEDS: TRAMADOL HCL 50 MG TAB PO PRN (20:04)
[2019-11-20] MEDS ORDERED: NON-FORMULARY MEDICATION ([Atorvastatin] 80 MG) PO SCH (21:00)
[2019-11-20] MEDS ORDERED: SODIUM CHLORIDE 0.9% 250ML 250 ML ONE (21:12)
[2019-11-20 21:15] VITALS: BP 155/103
[2019-11-20] MEDS: ACETAMIN/BUTALBITAL/CAFFEINE TAB PO PRN ×2 (21:15→23:25)
[2019-11-20] MEDS: ATORVASTATIN 40 MG TAB PO SCH (21:15)
--- NOTE | 2019-11-20 21:15 | NUR ---
PATIENT RESTING IN BED, HAS VOMITED ON TWO OCCASIONS DESPITE TAKING ZOFRAN. PATIENT WAS ALSO GIVEN TRAMADOL AND VOICED A SEVERE HEADACHE. CALLED YUDITH CASE, HAD PROMETHAZINE AND FIORICET ORDERED FOR PATIENT. PATIENT'S IV SITE WAS FOUND TO BE OCCLUDED AND INFORMED HER THAT A NEW ONE WOULD BE PROMPTLY STARTED. BED IS IN LOWEST POSITION, BOTH SIDE RAILS ARE UP, CALL LIGHT IS WITHIN EASY REACH, WILL CONTINUE TO MONITOR.
[2019-11-20] MEDS: FAMOTIDINE 20 MG/2 ML VIAL IV SCH (23:23)
[2019-11-20] MEDS: PROMETHAZINE 25MG/ NS 50ML (IV) IV PRN (23:25)
--- NOTE | 2019-11-20 23:30 | NUR ---
NEW IV SITE STARTED ON RIGHT UPPER ARM 20 GAUGE. PROMETHAZINE STARTED FOR PATIENT.
[2019-11-21] VITALS (8 sets, daily range): BP systolic 100–144; BP diastolic 72–109
[2019-11-21] MEDS: HYDRALAZINE HCL 20 MG/ML VIAL IV PRN (00:44)
[2019-11-21] MEDS ORDERED: TEMAZEPAM 15 MG CAP PO PRN (01:15)
[2019-11-21 05:16] LABS: BASOPHILS # (AUTO) 0.1 (0.0-0.1); BASOPHILS % 1.7 % (0.0-1.0); EOSINOPHILS % 0.6 % (0.0-6.0); LYMPHOCYTES # (AUTO) 1.5 (1.0-3.2); LYMPHOCYTES % 31.3 % (18.0-39.1); MEAN CORPUSCULAR HEMOGLOBIN 32.3 pg (28-32); MEAN CORPUSCULAR HGB CONC 33.3 g/dL (31-35); MONOCYTES # (AUTO) 0.3 (0.2-0.8); MONOCYTES % 6.3 % (4.4-11.3); NEUTROPHILS # (AUTO) 2.8 (2.1-6.9); NEUTROPHILS % 59.7 % (38.7-80.0); PLATELET COUNT 153 x10e3/uL (140-360); RED BLOOD COUNT 4.33 x10e6/uL (3.6-5.1); RED CELL DISTRIBUTION WIDTH 14.6 % (11.7-14.4)
[2019-11-21] MEDS: NITROGLYCERIN 2% OINT 1 GM PKT TOP SCH ×4 (06:00→23:48)
[2019-11-21] MEDS: DOCUSATE SODIUM 100 MG CAP PO SCH ×2 (06:00→18:12)
[2019-11-21 06:02] LABS: ALBUMIN 3.8 g/dL (3.5-5.0); ALBUMIN/GLOBULIN RATIO 1.1 (0.8-2.0); ANION GAP 16.7 mmol/L (8-16); CALCIUM 9.7 mg/dL (8.4-10.2); CHOL/HDL RATIO 3.4 (3.0-3.6); CREATININE, SERUM 1.13 mg/dL (0.57-1.11); POTASSIUM 3.7 mmol/L (3.5-5.1)
[2019-11-21 06:29] LABS: CREATINE KINASE MB 1.3 ng/mL (0-5.0)
[2019-11-21] MEDS ORDERED: LEVOTHYROXINE SODIUM 50 MCG TAB PO SCH (06:30)
[2019-11-21] MEDS: LEVOTHYROXINE SODIUM 100 MCG TAB PO SCH (06:48)
[2019-11-21] MEDS: ACETAMIN/BUTALBITAL/CAFFEINE TAB PO PRN ×2 (06:48→15:11)
[2019-11-21] MEDS: PROMETHAZINE 25MG/ NS 50ML (IV) IV PRN ×3 (06:48→23:15)
[2019-11-21] MEDS ORDERED: ASPIRIN 81 MG ENTERIC COATED PO SCH (09:00)
[2019-11-21] MEDS: FAMOTIDINE 20 MG/2 ML VIAL IV SCH ×2 (09:00→20:45)
[2019-11-21] MEDS: AMLODIPINE BESYLATE 5 MG TAB PO SCH (09:23)
[2019-11-21] MEDS: CLOPIDOGREL BISULFATE 75 MG TAB PO SCH (09:23)
[2019-11-21] MEDS: LISINOPRIL 10 MG TAB PO SCH ×2 (09:23→18:12)
[2019-11-21] MEDS: ASPIRIN 81 MG ENTERIC COATED PO SCH (09:23)
[2019-11-21] MEDS: METOPROLOL SUCCINATE 25 MG TAB XL PO SCH (09:24)
[2019-11-21] MEDS ORDERED: CLONAZEPAM 1 MG TAB PO PRN (09:30)
[2019-11-21] MEDS ORDERED: LACTULOSE SYRUP 20 GM/30 ML UDC PO PRN (09:30)
[2019-11-21] MEDS ORDERED: TEMAZEPAM 30 MG PO SCH (09:30)
[2019-11-21] MEDS ORDERED: ONDANSETRON HCL 4 MG ORAL DISINTEGRATING TAB PO PRN (10:45)
--- NOTE | 2019-11-21 17:45 | NUR ---
The pt. has been medicated with fioricet for headache and reports no relief and requests Dr. pacheco. I spoke with the DISABILITY SPECIALIST and he will consult Dr. Winter for further medication.
[2019-11-21] MEDS: TRAMADOL HCL 50 MG TAB PO PRN (18:35)
[2019-11-21] MEDS ORDERED: DIAZEPAM 5 MG TAB PO SCH (20:00)
[2019-11-21] MEDS ORDERED: SUMATRIPTAN SUCCINATE 25 MG TAB PO SCH (20:00)
[2019-11-21] MEDS ORDERED: DOCUSATE SODIUM 100 MG CAP PO PRN (20:15)
[2019-11-21] MEDS ORDERED: ALPRAZOLAM 0.5 MG TAB PO PRN (20:15)
[2019-11-21] MEDS: ATORVASTATIN 40 MG TAB PO SCH (20:45)
--- NOTE | 2019-11-21 20:45 | NUR ---
PATIENT VOICED ITCHING AND HAVING A REACTION TO SUMATRIPTAN. SHE SAID THAT SHE COULD NOT BREATH AND THROAT FEELS WEIRD. PLACED O2 ON PATIENT AND O2 SAT IS AT 98%. PATIENT WAS MONITORED AND CALLED YUDITH HOOP PUNCH AND COILER OPERATOR TO INFORM. CONTINUING TO MONITOR PATIENT.
[2019-11-21] MEDS ORDERED: MAGNESIUM HYDROXIDE 30 ML UDC PO SCH (21:00)
--- NOTE | 2019-11-21 21:16 | History and Physical ---
CHIEF COMPLAINT: Chest pain. HISTORY OF PRESENT ILLNESS: The patient is a 58-year-old female, who came in via the emergency department with chest pain, which woke her up at 3 a.m. on 11/20/2019, who was also seen in the emergency department on 10/04/2019, with diffuse abdominal pain with nausea, vomiting, and diarrhea at [facility] and had been seen at [facility] ([place]) on 10/03/2019, with normal labs and CT. The patient's cardiac biomarkers have been negative x3 sets. PAST MEDICAL HISTORY: Hypertension, coronary artery disease, CHF, anxiety, hyperlipidemia, insomnia, several hospitalizations with chest pain, severe fecal impaction in the right colon from narcotics and chronic pain syndrome (just prior to that in September 2019 had incarcerated ventral hernia, partial SBO). PAST SURGICAL HISTORY: Coronary artery stents x18, single-vessel coronary artery bypass graft, and thyroidectomy on 09/25/2019. She had a right hemicolectomy. She has had cholecystectomy, back surgery, and tonsillectomy. FAMILY HISTORY: Coronary artery disease in the family. Mother had heart problems. Father is 90 years old and in "perfect health." SOCIAL HISTORY: The patient admits to smoking half a pack a day for 5 years. She denies drinking alcohol. Admits to smoking marijuana on occasion. ALLERGIES: INCLUDE KETOROLAC TROMETHAMINE, METOCLOPRAMIDE, HYDROCHLORIDE, PROCHLORPERAZINE MALEATE, AND PROCHLORPERAZINE EDISYLATE. REVIEW OF SYSTEMS: CONSTITUTIONAL: The patient admits to losing 50 pounds in the past year, which was intentional. She denies any fever. No problems with eyes, ears, nose, and throat. RESPIRATORY: No shortness of breath, cough, or phlegm. GENITOURINARY: Denies dysuria or frequency. PSYCHIATRIC: No previous psychiatric history other than the anxiety disorder. SKIN: Denies rash or skin problems. CARDIOVASCULAR: Currently, denies any chest pain or palpitations. GASTROINTESTINAL: She had nausea and vomiting today "due to headache." She vomited despite having Zofran. Her last bowel movement was 11/20/2019. NEUROLOGIC: The patient states her headache is still severe, 01/12. ENDOCRINE: Denies history of diabetes. HEMATOLOGIC: Denies problems with bleeding or bruising. PHYSICAL EXAMINATION: VITAL SIGNS: Temperature 97.5, heart rate 88, blood pressure 103/74, respirations 16, and oxygen saturation 97%. GENERAL: No acute distress. The patient is supine in bed, but she does not feel well. LUNGS: Clear to auscultation. Respiratory pattern even and unlabored. No supplemental oxygen. HEENT: EOMI. NECK: Supple. No JVD. No thyromegaly. CARDIOVASCULAR: Regular rate and rhythm without murmur. ABDOMEN: Bowel sounds positive. Soft. Slightly tender to gentle palpation. EXTREMITIES: No pitting edema. No clubbing, cyanosis, or signs of DVT. NEUROLOGICAL: GCS 15. Nonfocal. LABORATORY DATA: In general, chemistry within normal limits. BUN 15, creatinine 1.13, and estimated GFR 50. CBC generally within normal limits. LFTs were within normal limits. Hemoglobin A1c 5%. Troponin I negative x3. ECG showed sinus rhythm with left ventricular hypertrophy. TSH was greater than 100. B-type natriuretic peptide 33.8. Chest x-ray was negative. ASSESSMENT AND PLAN: 1. Chest pain, rule out acute coronary syndrome, history of coronary artery disease, coronary artery bypass grafting x1 vessel, 18 cardiac stents. Cardiac biomarkers were negative and the patient no longer has chest pain. We will hold nitrites given her headache. 2. Controlled hypertension. Blood pressure 103/74 this morning. Monitor. 3. Intractable new onset headache, possibly from nitroglycerin given, 11/19. We will try Valium 10 mg once followed by sumatriptan 25 mg. Once case was discussed with Dr. Winter, may try Tylenol No. 3 if sumatriptan is ineffective as Tylenol No. 4 is nonformulary. 4. Chronic congestive heart failure without exacerbation. Resume home medications. Chest x-ray was negative. 5. Chronic pain syndrome with history of right hemicolectomy on 09/25/2019, with fecal impaction. Monitor any administration of narcotics and benzodiazepines. 6. History of thyroidectomy. TSH greater than 100. Continue levothyroxine 200 mcg daily. 7. Prophylaxis. Protonix, Pepcid, and SCDs. Time spent 60 minutes. Billing code [id number]. Dictated by Otis Ye, CAR DISPATCHER Amarjit Winter MD HWP/MODL /[id number]
[2019-11-21] MEDS ORDERED: DIPHENHYDRAMINE HCL 25 MG CAP PO ONE (22:15)
--- NOTE | 2019-11-21 23:05 | NUR ---
ITCHING HAS SUBSIDED IN PATIENT AND IS BREATHING NORMALLY, O2 SAT AT 98%. PATIENT STILL VOICES HEADACHE.
--- NOTE | 2019-11-21 23:30 | NUR ---
PATIENT VOMITED AND STILL VOICED HEADACHE. PROMETHAZINE ADMINISTERED TO PATIENT. PATIENT BEGAN TO CRY AND VOICED THAT "ONLY A DILAUDID SHOT WORKS FOR MY HEADACHE AND CALL THE DOCTOR NOW", CALLED YUDITH CASE AND HE DENIED THE PATIENT'S REQUEST, CONTINUING TO MONITOR.
[2019-11-22] VITALS: BP 146/100
[2019-11-22] MEDS: ACETAMIN/BUTALBITAL/CAFFEINE TAB PO PRN ×2 (00:55→09:57)
[2019-11-22 04:00] VITALS: BP 155/113
[2019-11-22] MEDS: TRAMADOL HCL 50 MG TAB PO PRN (04:31)
[2019-11-22] MEDS: PROMETHAZINE 25MG/ NS 50ML (IV) IV PRN (04:31)
[2019-11-22] MEDS: LEVOTHYROXINE SODIUM 100 MCG TAB PO SCH (05:32)
[2019-11-22] MEDS: DOCUSATE SODIUM 100 MG CAP PO SCH (05:32)
[2019-11-22] MEDS: HYDRALAZINE HCL 20 MG/ML VIAL IV PRN (05:32)
[2019-11-22] MEDS: NITROGLYCERIN 2% OINT 1 GM PKT TOP SCH ×2 (05:32→12:00)
--- NOTE | 2019-11-22 07:00 | NUR ---
BEDSIDE SHIFT REPORT RECEIVED FROM PM NURSE. PT RESTING, EASILY AROUSED, ORIENTED, NO S/S DISTRESS. WILL CONTINUE TO MONITOR.
[2019-11-22 07:03] LABS: BASOPHILS # (AUTO) 0.1 (0.0-0.1); BASOPHILS % 1.2 % (0.0-1.0); EOSINOPHILS # (AUTO) 0.1 (0.0-0.4); EOSINOPHILS % 2.1 % (0.0-6.0); HEMOGLOBIN 13.8 g/dL (12.0-16.0); LYMPHOCYTES # (AUTO) 2.1 (1.0-3.2); LYMPHOCYTES % 31.7 % (18.0-39.1); MEAN CORPUSCULAR HEMOGLOBIN 31.4 pg (28-32); MEAN CORPUSCULAR HGB CONC 32.9 g/dL (31-35); MEAN CORPUSCULAR VOLUME 95.5 fL (81-99); MONOCYTES # (AUTO) 0.5 (0.2-0.8); MONOCYTES % 7.3 % (4.4-11.3); NEUTROPHILS # (AUTO) 3.8 (2.1-6.9); NEUTROPHILS % 57.6 % (38.7-80.0); PLATELET COUNT 257 x10e3/uL (140-360); RED CELL DISTRIBUTION WIDTH 14.5 % (11.7-14.4)
[2019-11-22 07:26] LABS: ANION GAP 15.6 mmol/L (8-16); CALCIUM 9.6 mg/dL (8.4-10.2); CREATININE, SERUM 1.04 mg/dL (0.57-1.11); MAGNESIUM 1.8 MG/DL (1.3-2.1); PHOSPHORUS 3.8 MG/DL (2.3-4.7); POTASSIUM 3.6 mmol/L (3.5-5.1)
[2019-11-22 07:58] VITALS: BP 155/113
[2019-11-22 08:14] VITALS: BP 131/89
[2019-11-22] MEDS ORDERED: PANTOPRAZOLE SOD 40 MG TABEC PO SCH (09:00)
[2019-11-22] MEDS ORDERED: CLONAZEPAM 1 MG TAB PO SCH (09:00)
--- NOTE | 2019-11-22 09:13 | NUR ---
GAVE PACKET OF INFORMATION WITH COMMUNITY RESOURCES FOR ASSISTANCE WITH LOW TO NO INCOME TO PATIENT. RESOURCES THAT PATIENT MAY BE ABLE TO FOLLOW UP UPON DISCHARGE. PT EDUCATED ON EACH RESOURCE AND UNDERSTANDING HOW TO FOLLOW UP TO SEE IF QUALIFIED FOR EACH RESOURCE.
[2019-11-22] MEDS: CLOPIDOGREL BISULFATE 75 MG TAB PO SCH (09:58)
[2019-11-22] MEDS: LISINOPRIL 10 MG TAB PO SCH (09:58)
[2019-11-22] MEDS: ASPIRIN 81 MG ENTERIC COATED PO SCH (09:58)
[2019-11-22] MEDS: FAMOTIDINE 20 MG/2 ML VIAL IV SCH (09:58)
[2019-11-22] MEDS: AMLODIPINE BESYLATE 5 MG TAB PO SCH (09:58)
[2019-11-22] MEDS: METOPROLOL SUCCINATE 25 MG TAB XL PO SCH (09:59)
[2019-11-22 11:50] VITALS: BP 136/94
[2019-11-22] MEDS ORDERED: NITROSTAT0.4 MG SL (13:24)
[2019-11-22] MEDS ORDERED: PLAVIX75 MG PO (13:24)
[2019-11-22] MEDS ORDERED: Acetamin/Butalbital/Caffeine PO (13:24)
[2019-11-22] MEDS ORDERED: SYNTHROID50 MCG PO (13:53)
[2019-11-22] MEDS ORDERED: CLONAZEPAM2 M1 PO (13:53)
--- NOTE | 2019-11-23 03:40 | Discharge Summary ---
Please see dictated history and physical for past medical history, past surgical history, family history, social history, and allergies. HISTORY OF PRESENT ILLNESS: The patient is a 58-year-old female, who came in via the emergency department with complaints of chest pain, which woke her up at 3:00 a.m. on 11/20/2019. She had been seen in the emergency department on 10/04/2019, with diffuse abdominal pain with nausea, vomiting, and diarrhea at [facility] and had been seen at [facility]) on 10/03/2019, with normal labs and CT. The patient's cardiac biomarkers have been negative x3 sets. ADMITTING DIAGNOSES: Included, 1. Chest pain, rule out acute coronary syndrome, history of coronary artery disease, history of CABG x1 vessel, history of 18 cardiac stents. 2. Uncontrolled hypertension. 3. Intractable new onset headache on 11/19, possibly from nitroglycerin given. 4. Chronic congestive heart failure without exacerbation. 5. Chronic pain syndrome with history of right hemicolectomy on 09/25/2019, with fecal impaction likely cause from narcotics. 6. History of thyroidectomy. DISCHARGE DIAGNOSES: 1. Chest pain, rule out acute coronary syndrome, history of coronary artery disease, history of CABG x1 vessel, history of 18 cardiac stents. 2. Uncontrolled hypertension. 3. Intractable new onset headache on 11/19, possibly from nitroglycerin given. 4. Chronic congestive heart failure without exacerbation. 5. Chronic pain syndrome with history of right hemicolectomy on 09/25/2019, with fecal impaction likely cause from narcotics. 6. History of thyroidectomy. 7. Possible drug-seeking behavior. Plan was for discharge yesterday. However, the patient complained of headache, 01/12, was given Valium 10 mg once followed by sumatriptan 25 mg after conferring with Dr. Winter. Today, the patient states her headache is much improved and was actually inquiring about being discharged home. Her nitrites were held, given her headache. There were thoughts of giving Tylenol No. 3, if the sumatriptan was ineffective since the Tylenol No. 4 is non-formulary. However, she did not require this. TSH was greater than 100 and levothyroxine 200 mcg daily was continued. She was also given an updated prescription for the levothyroxine. On the day of discharge, WBC 6.68, hemoglobin 13.8, hematocrit 42, platelets 257. Sodium 141, potassium 3.6, chloride 108, CO2 of 21, BUN 21 and creatinine 1.04, estimated GFR 55, glucose 81, calcium 9.6, phosphorus 3.8, magnesium 1.8. Hemoglobin A1c during her stay was 5.0%. All three cardiac biomarkers within normal limits. Troponin I 0.041, then 0.039, then 0.074. Urinalysis was negative. Coronavirus PCR on 11/19 was negative. Final urine culture was negative. On 11/19, chest x-ray showed no acute cardiopulmonary disease. Telemetry had shown normal sinus rhythm with heart rate of 81. The patient had requested Dilaudid multiple times during her stay. Her SITE SAFETY REPRESENTATIVE aware. Print out is included in her chart. Overdose risk score 450, Narx scores narcotic 450, sedative 260, stimulant 0. Prescribers that included Dr. Callaway, Dr. Ketan Jackson, and Dr. Sol. The patient was sent home with 9 tablets of clonazepam 2 mg. She has been receiving tramadol. The most recent prescription written on 11/09/2019, by Dr. Jackson. Diazepam 5 mg on 10/10/2019, by Dr. Callaway and [place] 5 mg-325 mg on the same day, 10/[address] Callaway. Oxycodone on 09/29/2019, by Dr. Sol. The patient inquired about getting a referral for primary care physician was given Dr. Winter's number, so that she could set of appointment with his office. The patient to continue on a cardiac diet. Established and follow up with PCP in 1-2 weeks. Dictated by Otis Ye NP Amarjit Winter MD HWP/MODL /[id number]
== END 2019-11-22 14:39 | disposition home or self-care (01) ==
LOC: ER 11:15 → ERHOLD 14:57 → MED/SURG2 16:22
PROVIDERS: ADMIT Internal Medicine; ATTEND Internal Medicine
DX: R07.9 Chest pain, unspecified (principal); R51 Headache; G89.4 Chronic pain syndrome; E89.0 Postprocedural hypothyroidism; I11.0 Hypertensive heart disease with heart failure; I50.9 Heart failure, unspecified; Z88.0 Allergy status to penicillin; Z88.8 Allergy status to other drugs, medicaments and biological substances; I25.10 Atherosclerotic heart disease of native coronary artery without angina pectoris; Z95.1 Presence of aortocoronary bypass graft; Z95.5 Presence of coronary angioplasty implant and graft; Z90.49 Acquired absence of other specified parts of digestive tract
CPT/HCPCS: 36415 ×3; 71045; 80048; 80053 ×2; 80061; 81001; 82550 ×2; 82553 ×2; 83036; 83735 ×2; 83880; 84100; 84443; 84484 ×2; 85025 ×3; 85610; 85730; 87086; 93005; 99284; G0378 ×3; J0360 ×3; J2270; J2405; J2550 ×3; J7050; Q0162; S0164; U0002

== ENCOUNTER 2020-01-08 08:15 | Emergency (ER) | payer SELFPAY ==
[~2020-01-08] VITALS: Ht 162.6 cm; Wt 61.2 kg
[~2020-01-08 08:15] MED LIST changes: +Acetamin/Butalbital/Caffeine PO; +NITROSTAT0.4 MG SL; +PLAVIX75 MG PO
--- NOTE | 2020-01-08 08:22 | NUR ---
Ekg done in triage on pt arrival stat. Given stat to md. no stemi.
[2020-01-08] MEDS ORDERED: ASPIRIN 81 MG CHEW TAB PO STA (08:26)
[2020-01-08] MEDS ORDERED: ASPIRIN 81 MG CHEW TAB PO ONE (08:30)
--- NOTE | 2020-01-08 08:30 | NUR ---
bilateral bp's checked. rt 170/120 and left 150/122. aware. pt states her bp is usually 200's over 140's.
--- NOTE | 2020-01-08 08:31 | NUR ---
rn/triage looked for iv access. no access found in triage. pt states they do usually use her neck or "the doctor has to do it." updated pt that nurse will look for EJ once in room.
--- NOTE | 2020-01-08 08:48 | NUR ---
No EJ's accessible. Pt with poor access. 3rd nurse looked for access as well. Explained will attempt arterial stick to obtaine labs and then asked md if ok for picc order. Pt states she will not allow arterial sticks. Lab will try for labs.
--- OUTSIDE RECORDS SUMMARY | 2020-01-08 08:58 | XMS REPORT | Continuity of Care Document ---
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 (Same as: Tylenol) Inactive 04/13/2016 [facility] Acetaminophen 300 MG / Codeine Phosphate 30 MG Oral Tablet [Tylenol with Codeine #3] 1 - 2 tab, PO, Q4H, PRN Pain, X 2 day, # 20 tab, 0 Refill(s) No Longer Active 04/13/2016 [facility] atorvastatin 40 mg oral tablet 80 mg = 2 tab, PO, Bedtime, # 60 tab, 0 Refill(s) Active 04/13/2016 [facility] Morphine Notes: (Same as:MORPh ine Sulfate) No Longer Active 04/12/2016 [facility] pantoprazole Notes: Tablet marquez uld not be chewed or crushed. (Same as: Protonix) N o Longer Active 04/12/2016 [facility] Morphine Notes: (Same as:MORPh ine Sulfate) Inactive 04/12/2016 [facility] atorvastatin Notes: (Same as: Lipitor) No Longer Active 04/12/2016 [facility] metoprolol tartrate Notes: (Sa me as: Toprol XL) May split tab, but do not crush. N o Longer Active 04/12/2016 [facility] Lisinopril Notes: (Same as: Pr inivil, Zestril) No Longer Active 04/12/2016 [facility] Plavix Notes: (Same As: Plavix) No Longer Active 04/12/2016 [facility] Norvasc Notes: (Same as: Norva sc) No Longer Active 04/12/2016 [facility] Saline Flush 0.9% Notes: (Same as: BD Posiflush) No Longer Active 04/12/2016 [facility] heparin Notes: porcine heparin No Longer Active 04/12/2016 [facility] Sucralfate 100 MG/ML Oral Suspension [Carafate] Notes: May interfere w/enteral feeds - Take 1 hr before or 2 hr after antacids, dairy pdt, meals & minerals - On empty stomach. For patients unable to swallow tablet, dissolve in 10mL - 30mL of water or juice and stir before giving. (Same As: Carafate) No Longer Activ e 04/12/2016 [facility] Thyroxine Notes: Take 1 hour b efore or 2 hours after meal; Enteral feeds may interefere with the absorption of this medication. (Same as: Levothroid) No Longe r Active 04/12/2016 [facility] Aspirin 325 MG Oral Tablet Not es: Take with food. No Longer Active 04/12/2016 [facility] Clonidine Hydrochloride 0.1 MG Oral Tablet Notes: (Same As: Catapres) No Longer Active 04/12/2016 [facility] Acetaminophen 325 MG / Hydrocodone Marcio trate 5 MG Oral Tablet [[place] 5/325] Notes: (Same as: [place] 325/5) Do not ex ceed 4gm/day of acetaminophen. No Longer Activ e 04/12/2016 [facility] Ativan Notes: (Same as: Ativan) No Longer Active 04/12/2016 [facility] Morphine Notes: (Same as:MORPh ine Sulfate) Inactive 04/12/2016 [facility] 24 HR tramadol hydrochloride 100 MG Exte nded Release Tablet 100 mg = 1 tab, PO, Q4H, 0 Refill(s) Active 04/12/2016 [facility] Amlodipine 10 MG Oral Tablet [Norvasc] See Instructions, 1 tab PO Daily, 0 Refill(s) Active 04/12/2016 [facility] Saline Flush 0.9% Notes: (Same as: BD Posiflush) No Longer Active 04/12/2016 [facility] Morphine Notes: (Same as:MORPh ine Sulfate) Inactive 04/12/2016 [facility] Nitroglycerin Notes: (Same as: Nitroquick, Nitrostat) "Do Not Crush" Sublingual tablet No Longer Active 04/12/2016 [facility] Ativan 0.5 mg, Route: IVP, Bandar g form: INJ, ONCE, Dosing Weight 72.727, kg, Priority: STAT, Start date: 04/12/16 1:56:00 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 No Longer Active 04/12/2016 [facility] Saline Flush 0.9% Notes: Same as: BD Posiflush Sterile No Longer Active 04/12/2016 [facility] Acetaminophen 300 MG / Codeine Phosphate 30 MG Oral Tablet [Tylenol with Codeine #3] 1 - 2 tab, PO, Q4H, PRN Pain, X 3 day, # 20 tab, 0 Refill(s) Active 03/27/2016 [facility] Clindamycin 300 MG Oral Capsule [Cleocin] 300 mg = 1 cap, PO, QID, X 10 day, # 40 cap, 0 Refill(s) Active 03/27/2016 [facility] Dilaudid 0.5 mg, 0.5 mL, Route : IM, Drug form: INJ, ONCE, Dosing Weight 72.727, kg, Priority: STAT, Start date: 03/27/16 10:29:00 ENVIRONMENTAL MONITORING SPECIALIST, Stop date: 03/27/16 10:29:00 ENVIRONMENTAL MONITORING SPECIALIST Inactive 03/27/2016 [facility] Acetaminophen 325 MG / Hydrocodone Marcio trate 10 MG Oral Tablet [[place] 10/325] 1 tab, Route: PO, Drug Form: TAB, Dosing Weight 72.727, kg, ONCE, STAT, Start date: 03/27/16 10:26:00 ENVIRONMENTAL MONITORING SPECIALIST, Stop date: 03/27/16 10:26:00 ENVIRONMENTAL MONITORING SPECIALIST Inactive 03/27/2016 [facility] Clindamycin Notes: (clindamyci n 150 mg/1 ml (600 mg/4 ml VL) INJ) (Same As: Cleocin) Inactive 03/27/2016 [facility] Thyroxine Notes: Take 1 hour b efore or 2 hours after meal; Enteral feeds may interefere with the absorption of this medication. (Same as: Levothroid) No Longe r Active 12/09/2014 [facility] Plavix Notes: (Same As: Plavix) No Longer Active 12/09/2014 [facility] 24 HR Metoprolol Tartrate 50 MG Extended Release Tablet [Toprol] Notes: (Same as: Toprol XL) May split t ab, but do not crush. No Longer Active 12/09/2014 [facility] Lisinopril Notes: (Same as: Pr inivil, Zestril) Inactive 12/08/2014 [facility] pantoprazole Notes: Tablet marquez uld not be chewed or crushed. (Same as: Protonix) Inactive 12/08/2014 [facility] Sucralfate 100 MG/ML Oral Suspension [Carafate] Notes: Enteral feeds may interfere with the absorption of this medication. Shake well. Take 1 hr before or 2 hrs after antacids, dairy pdt, minerals & meals. (Same As: Carafate) Inactive 12/08/2014 [facility] Erythromycin 250 MG Enteric Coated Tablet Notes: (Same as: [place]-Tab) Give With Food "Do Not Crush" Inactive 12/08/2014 [facility] Sucralfate 100 MG/ML Oral Suspension [Carafate] 1 gm = 10 ml, PO, QID-Before Meals, # 1200 mL, 0 Refill(s) Active 12/08/2014 [facility] tramadol hydrochloride 50 MG Oral Tablet 50 mg = 1 tab, PO, Q6H, PRN Pain, # 30 tab, 0 Refill(s) Active 12/08/2014 [facility] Aspirin 325 MG Oral Tablet Not es: Take with food. Inactive 12/08/2014 [facility] Hyoscyamine Notes: (Same as: L evsin) Take 30 min before meal Inactive 12/08/2014 [facility] Valium Notes: (Same as: Valium) Inactive 12/08/2014 [facility] Clonidine Hydrochloride 0.1 MG Oral Tablet Notes: (Same As: Catapres) Inactive 12/08/2014 [facility] Diazepam 10 MG Oral Tablet [Valium] 10 mg = 1 tab, PO, TID, PRN Anxiety, 0 Refill(s) Active 12/08/2014 [facility] Temazepam 30 MG Oral Capsule [Restoril] 30 mg = 1 cap, PO, Bedtime, PRN Sleep, 0 Refill(s) Active 12/08/2014 [facility] clopidogrel 75 MG Oral Tablet [Plavix] 75 mg = 1 tab, PO, Daily, # 30 tab, 0 Refill(s) Active 12/08/2014 [facility] tramadol hydrochloride 50 MG Oral Tablet 50 mg = 1 tab, PO, Q6H, PRN Pain, 0 Refill(s) Inactive 12/08/2014 [facility] promethazine 25 mg oral tablet 25 mg = 1 tab, PO, Q4H, PRN Nausea/Vomiting, 0 Refill(s) Active 12/08/2014 [facility] pantoprazole 40 mg oral enteric coated tablet 40 mg = 1 tab, PO, Before Dinner, 0 Refill(s) Active 12/08/2014 [facility] metoprolol 50 mg oral tablet, extended release 50 mg = 1 tab, PO, BID, 0 Refill(s) Active 12/08/2014 [facility] lisinopril 20 mg oral tablet 2 0 mg = 1 tab, PO, BID, # 60 tab, 0 Refill(s) Active 12/08/2014 [facility] levothyroxine 200 mcg (0.2 mg) oral tablet 200 microgram = 1 tab, PO, Daily, # 30 tab, 0 Refill(s) Active 12/08/2014 [facility] hyoscyamine 0.125 mg sublingual tablet 0.125 mg = 1 tab, SL, Before Meals & Bedtime, 0 Refill(s) Active 12/08/2014 [facility] erythromycin 250 mg oral delayed release capsule 250 mg = 1 cap, PO, Q6H, # 40 cap, 0 Refill(s) Active 12/08/2014 [facility] Clonidine Hydrochloride 0.1 MG Oral Tablet 0.1 mg = 1 tab, PO, TID, PRN Hypertension, 0 Refill(s) Active 12/08/2014 [facility] Aspirin 325 MG Oral Tablet 325 mg = 1 tab, PO, Daily, # 30 tab, 0 Refill(s) Active 12/08/2014 [facility] Phenergan Notes: Do not give I V push. (Same as: Phenergan) Inactive 12/08/2014 [facility] Morphine Notes: (Same as:MORPh ine Sulfate) Inactive 12/08/2014 [facility] Sodium Chloride 0.154 MEQ/ML Injectable Solution 1,000 mL, Rate: 125 ml/hr, Infuse over: 8 hr, Route: IV, Dosing Weight 81.818 kg, Total Volume: 1,000, Start date: 12/08/14 4:07:00, Duration: 30 day, Stop date: 01/07/15 4:06:00 Inactive 12/08/2014 [facility] Saline Flush 0.9% Notes: (Same as: BD Posiflush) Inactive 12/08/2014 [facility] nitroglycerin 0.4 mg sublingual tablet Notes: (Same as:Nitroquick Nitrostat) "Do Not Crush" Sublingual tablet Inactive 12/08/2014 [facility] atropine 0.5 mg, 5 mL, Route: IVP, Drug form: INJ, PRN, PRN Bradycardia, Start date: 12/08/14 3:28:00, Duration: 30 day, Stop date: 01/07/15 3:27:00 Inactive 12/08/2014 [facility] Furosemide 20 MG Oral Tablet [Lasix] 20 mg = 1 tab, PO, Daily, 0 Refill(s) Inactive 12/08/2014 [facility] Labetalol Notes: (Same as: Nor carola Trandate) Push over 2 minutes Give bolus over 2-3 minutes. Inactive 12/08/2014 [facility] Nitroglycerin 0.4 MG Sublingual Tablet [Nitrostat] Notes: (Same as:Nitroquick, Nitrostat) "Do Not Crush" Sublingual tablet Inactive 12/08/2014 [facility] Phenergan 12.5 mg, Route: IVPB , ONCE, Dosing Weight 77.273, kg, Priority: STAT, Start date: 12/08/14 0:34:00, Stop date: 12/08/14 0:34:00 Inactive 12/08/2014 [facility] Morphine 4 mg, Route: IVP, Bandar g form: INJ, ONCE, Dosing Weight 77.273, kg, Priority: STAT, Start date: 12/08/14 0:34:00, Stop date: 12/08/14 0:34:00 Inactive 12/08/2014 [facility] Morphine 4 mg, Route: IVP, Bandar g form: INJ, ONCE, Dosing Weight 77.273, kg, Priority: STAT, Start date: 12/08/14 0:26:00, Stop date: 12/08/14 0:26:00 Inactive 12/08/2014 [facility] Phenergan 12.5 mg, Route: IVPB , ONCE, Dosing Weight 77.273, kg, Priority: STAT, Start date: 12/08/14 0:25:00, Stop date: 12/08/14 0:25:00 Inactive 12/08/2014 [facility] Bentyl 20 mg, Route: PO, ONCE, Dosing Weight 77.273, kg, Start date: 12/07/14 23:41:00, Stop date: 12/07/14 23:41:00 No Longer Active 12/08/2014 [facility] Morphine 4 mg, Route: IVP, Bandar g form: INJ, ONCE, Dosing Weight 77.273, kg, Priority: STAT, Start date: 12/07/14 22:35:00, Stop date: 12/07/14 22:35:00 Inactive 12/08/2014 [facility] GI cocktail Notes: [place] = antacid with simethicone 22.5 mL - lidocaine viscous 7.5 mL Inactive 12/08/2014 [facility] Morphine 4 mg, Route: IVP, Bandar g form: INJ, ONCE, Dosing Weight 77.273, kg, Priority: STAT, Start date: 12/07/14 20:58:00, Stop date: 12/07/14 20:58:00 Inactive 12/08/2014 [facility] Protonix 40 mg, Route: IVP, ON CE, Dosing Weight 77.273, kg, Priority: STAT, Start date: 12/07/14 20:58:00, Stop date: 12/07/14 20:58:00 Inactive 12/08/2014 [facility] Clonidine 0.1 mg, Route: PO, D rug form: TAB, ONCE, Dosing Weight 77.273, kg, Priority: STAT, Start date: 12/07/14 19:49:00, Stop date: 12/07/14 19:49:00 Inactive 12/08/2014 [facility] Phenergan 12.5 mg, Route: IVPB , ONCE, Dosing Weight 77.273, kg, Priority: STAT, Start date: 12/07/14 19:49:00, Stop date: 12/07/14 19:49:00 Inactive 12/08/2014 [facility] Sodium Chloride 0.154 MEQ/ML Injectable Solution 1,000 mL, 1,000 ml/hr, Infuse Over: 1 hr, Route: IV, ONCE, Priority: STAT, Dosing Weight 77.273 kg, Start date: 12/07/14 19:48:00, Duration: 1 doses or times, Stop date: 12/07/14 19:48:00 Inactive 12/08/2014 [facility] metoprolol tartrate 50 mg oral tablet 50 mg = 1 tab, PO, Q12H, # 120 tab, 0 Refill(s) Active 12/01/2014 [facility] lisinopril 20 mg oral tablet 2 0 mg = 1 tab, PO, BID, # 60 tab, 0 Refill(s) Active 12/01/2014 [facility] clopidogrel 75 MG Oral Tablet [Plavix] 75 mg = 1 tab, PO, Daily, # 30 tab, 0 Refill(s) Active 12/01/2014 [facility] Aspirin 325 MG Oral Tablet 325 mg, PO, Daily, # 30 tab, 0 Refill(s) Active 12/01/2014 [facility] Temazepam 30 MG Oral Capsule [Restoril] 30 mg = 1 cap, PO, Bedtime, X 7 day, # 7 cap, 0 Refill(s) Active 12/01/2014 [facility] Diazepam 10 MG Oral Tablet [Valium] 10 mg = 1 tab, PO, TID, PRN Anxiety, X 7 day, # 21 tab, 0 Refill(s) Active 12/01/2014 [facility] levothyroxine 200 mcg (0.2 mg) oral tablet 200 microgram = 1 tab, PO, Daily, # 30 tab, 0 Refill(s) Active 12/01/2014 [facility] Clonidine Hydrochloride 0.1 MG Oral Tablet 0.1 mg = 1 tab, PO, TID, PRN Hypertension, # 90 tab, 0 Refill(s) Active 12/01/2014 [facility] tramadol hydrochloride 50 MG Oral Tablet 50 mg = 1 tab, PO, Q6H, PRN Pain, X 10 day, # 40 tab, 0 Refill(s) Active 12/01/2014 [facility] erythromycin 250 mg oral tablet 250 mg = 1 tab, PO, Q6H, X 10 day, # 40 tab, 0 Refill(s) Active 12/01/2014 [facility] promethazine 25 mg oral tablet 25 mg = 1 tab, PO, Q4H, PRN Allergic reaction, X 7 day, # 42 tab, 0 Refill(s) Active 12/01/2014 [facility] pantoprazole 40 mg oral enteric coated tablet 40 mg = 1 tab, PO, Before Dinner, # 30 tab, 0 Refill(s) Active 12/01/2014 [facility] hyoscyamine 0.125 mg sublingual tablet 0.125 mg = 1 tab, PO, Before Meals & Bedtime, # 120 tab, 0 Refill(s) Active 12/01/2014 [facility] hydrOXYzine hydrochloride 10 mg/5 mL oral syrup Notes: (Same as: Atarax) No Longer Active 11/29/2014 [facility] Erythromycin Ethylsuccinate 40 MG/ML Oral Suspension Notes: (Same as: E.E.S.-400) N o Longer Active 11/29/2014 [facility] Hydroxyzine Notes: (Same as: V istaril) Avoid alcohol. Inactive 11/29/2014 [facility] Tylenol Notes: Do not exceed 4 gm/day. (Same as: Tylenol) No Longer Active 11/28/2014 [facility] Dilaudid 1 mg, 1 mL, Route: IV , Drug form: INJ, Q4H, Dosing Weight 81.818, kg, PRN Pain Score 7-10, Start date: 11/28/14 11:53:00, Duration: 30 day, Stop date: 12/28/14 11:52:00 No Longer Active 11/28/2014 [facility] Levsin Notes: (Same as: Levsin ) Take 30 min before meal No Longer Active 11/28/2014 [facility] Protonix Notes: Tablet should not be chewed or crushed. (Same as: Protonix) No Longer Active 11/26/2014 [facility] Levsin Notes: (Same as: Levsin ) Take 30 min before meal No Longer Active 11/26/2014 [facility] Sodium Chloride 0.154 MEQ/ML Injectable Solution 500 mL, Rate: 25 ml/hr, Infuse over: 20 hr, Route: IV, Dosing Weight 81.818 kg, Total Volume: 500, Start date: 11/26/14 8:15:00, Duration: 1 day, Stop date: 11/27/14 8:14:00 No Longer Active 11/26/2014 [facility] Dilaudid 1 mg, 1 mL, Route: IV P, Drug form: INJ, ONCE, Dosing Weight 81.818, kg, Priority: STAT, Start date: 11/25/14 17:51:00, Stop date: 11/25/14 17:51:00 Inactive 11/25/2014 [facility] Plavix Notes: (Same As: Plavix) No Longer Active 11/25/2014 [facility] Aspirin 325 MG Oral Tablet Not es: Take with food. No Longer Active 11/25/2014 [facility] Thyroxine Notes: Take 1 hour b efore or 2 hours after meal; Enteral feeds may interefere with the absorption of this medication. (Same as: Levothroid) No Longe r Active 11/25/2014 [facility] Famotidine 20 MG Oral Tablet N otes: (Same as: Pepcid) No Longer Active 11/25/2014 [facility] Restoril Notes: (Same As: Rest oril) No Longer Active 11/25/2014 [facility] metoprolol tartrate Notes: (Sa me as: Lopressor) No Longer Active 11/25/2014 [facility] Lisinopril Notes: (Same as: Pr inivil, Zestril) No Longer Active 11/25/2014 [facility] Lipitor Notes: (Same as: Lipit or) No Longer Active 11/25/2014 [facility] Dilaudid 0.5 mg, 0.5 mL, Route : IV, Drug form: INJ, Q3H, Dosing Weight 81.818, kg, PRN Pain Score 7-10, Start date: 11/24/14 17:16:00, Duration: 30 day, Stop date: 12/24/14 17:15:00 No Longer Active 2014 [facility] Acetaminophen 325 MG / Hydrocodone Marcio trate 10 MG Oral Tablet [[place] 10/325] Notes: Do not exceed 4gm/day of acetamin ophen. (Same as: [place] 325/10) No Longer Active 2014 [facility] Valium Notes: (Same as: Valium) No Longer Active 2014 [facility] Phenergan Notes: Do not give I V push. (Same as: Phenergan) No Longer Active 2014 [facility] Saline Flush 0.9% Notes: (Same as: BD Posiflush) No Longer Active 2014 [facility] Dilaudid 0.5 mg, 0.5 mL, Route : IV, Drug form: INJ, Q4H, Dosing Weight 81.818, kg, PRN Pain Score 7-10, Start date: 11/23/14 18:49:00, Duration: 30 day, Stop date: 12/23/14 18:48:00 No Longer Active 11/23/2014 [facility] Phenergan Notes: (Same as: Phe nergan) No Longer Active 11/23/2014 [facility] Magnesium Sulfate 2 gm, 50 mL, Route: IVPB, Drug form: INJ, ONCE, Dosing Weight 81.818, kg, Total dose = 2 gm, Start date: 11/23/14 18:46:00, Duration: 1 doses or times, Stop date: 11/23/14 18:46:00 Inactive 11/23/2014 [facility] normal saline 0.9% IV 1,000 mL 1,000 mL, Rate: 80 ml/hr, Infuse over: 12.5 hr, Route: IV, Dosing Weight 81.818 kg, Total Volume: 1,000, Start date: 11/23/14 18:39:00, Stop date: 12/23/14 18:38:00 No Longer Active 11/23/2014 [facility] nitroglycerin 0.4 mg sublingual tablet Notes: (Same as:Nitroquick, Nitrostat) "Do Not Crush" Sublingual tablet No Longer Active 11/23/2014 [facility] atropine 0.5 mg, 5 mL, Route: IVP, Drug form: INJ, PRN, PRN Bradycardia, Start date: 11/23/14 18:36:00, Duration: 30 day, Stop date: 12/23/14 18:35:00 No Longer Active 11/23/2014 [facility] Pepcid Notes: (Same as: Pepcid ) Can be dilute in 5-10cc NS IVP: Slow IV push over at least 2 minutes. No Longer Active 11/23/2014 [facility] Dilaudid 1 mg, Route: IVP, ONC E, Dosing Weight 81.818, kg, Priority: STAT, Start date: 11/23/14 17:57:00, Stop date: 11/23/14 17:57:00 Inactive 11/23/2014 [facility] Benadryl 25 mg, Route: IVP, ON CE, Dosing Weight 81.818, kg, PRN Allergic reaction, Start date: 11/23/14 17:56:00 Inactive 11/23/2014 [facility] Reglan 10 mg, Route: IVP, ONCE , Dosing Weight 81.818, kg, Start date: 11/23/14 17:55:00, Stop date: 11/23/14 17:55:00 Inactive 11/23/2014 [facility] Clonidine Hydrochloride 0.1 MG Oral Tablet 160 No Longer Active 11/23/2014 [facility] Droperidol 0.625 mg, Route: IV P, ONCE, Dosing Weight 81.818, kg, PRN Nausea, Start date: 11/23/14 17:42:00, Stop date: 12/23/14 17:41:00 Inactive 11/23/2014 [facility] Saline Flush 0.9% Notes: (Same as: BD Posiflush) No Longer Active 11/23/2014 [facility] Morphine Notes: (Same as:MORPh ine Sulfate) No Longer Active 11/23/2014 [facility] Nitroglycerin Notes: (Same as: Nitroquick, Nitrostat) "Do Not Crush" Sublingual tablet Inactive 11/23/2014 [facility] Morphine Notes: (Same as:MORPh ine Sulfate) Inactive 11/23/2014 [facility] Clonidine Hydrochloride 0.1 MG Oral Tablet Notes: (Same As: Catapres) No Longer Active 11/23/2014 [facility] Labetalol Notes: (Same as: Nor modyne, Trandate) Push over 2 minutes Give bolus over 2-3 minutes. No Longer Active 11/23/2014 [facility] Ativan 1 mg, Route: PO, Drug f orm: TAB, ONCE, Dosing Weight 81.818, kg, Priority: STAT, Start date: 11/23/14 14:33:00, Stop date: 11/23/14 14:33:00 Inactive 11/23/2014 [facility] Nitroglycerin Notes: (Same as: Nitroquick, Nitrostat) "Do Not Crush" Sublingual tablet Inactive 11/23/2014 [facility] Morphine 4 mg, Route: IVP, Bandar g form: INJ, ONCE, Dosing Weight 81.818, kg, Priority: STAT, Start date: 11/23/14 13:13:00, Stop date: 11/23/14 13:13:00 Inactive 11/23/2014 [facility] Saline Flush 0.9% Notes: (Same as: BD Posiflush) Inactive 11/23/2014 [facility] multivitamin with minerals Not es: (Same as:Thera-M, Theragran-M) Give with food. No Longer Active 09/19/2014 [facility] Thyroxine Notes: Take 1 hour b efore or 2 hours after meal; Enteral feeds may interefere with the absorption of this medication.(Same as:Levothroid, Synthroid) No Longer Active 09/19/2014 [facility] Aspirin 325 MG Oral Tablet 325 mg, Route: PO, Drug form: TAB, Daily, Dosing Weight 79.545, kg, Start date: 09/19/14 9:00:00, Duration: 30 day, Stop date: 10/18/14 9:00:00 No Longer Active 09/19/2014 [facility] Plavix 75 mg, Route: PO, Drug form: TAB, Daily, Dosing Weight 79.545, kg, Start date: 09/19/14 9:00:00, Duration: 30 day, Stop date: 10/18/14 9:00:00 No Longer Active 09/19/2014 [facility] potassium chloride 80 mEq, Rou te: PO, Daily, Dosing Weight 79.545, kg, Start date: 09/19/14 9:00:00, Duration: 30 day, Stop date: 10/18/14 9:00:00 No Longer Active 09/19/2014 [facility] metoprolol tartrate 50 mg, Rou te: PO, Drug form: TAB, Q12H, Dosing Weight 79.545, kg, Start date: 09/18/14 21:00:00, Duration: 30 day, Stop date: 10/18/14 9:00:00 Inactive 09/19/2014 [facility] Lipitor 80 mg, Route: PO, Drug form: TAB, Bedtime, Dosing Weight 79.545, kg, Start date: 09/18/14 21:00:00, Duration: 30 day, Stop date: 10/17/14 21:00:00 Inactive 09/19/2014 [facility] Restoril 30 mg, Route: PO, Bandar g form: CAP, Bedtime, Dosing Weight 79.545, kg, Start date: 09/18/14 21:00:00, Duration: 30 day, Stop date: 10/17/14 21:00:00 Inactive 09/19/2014 [facility] Lisinopril 20 mg, Route: PO, D rug form: TAB, BID, Dosing Weight 79.545, kg, Start date: 09/18/14 17:00:00, Duration: 30 day, Stop date: 10/18/14 9:00:00 Inactive 09/18/2014 [facility] acetaminophen-hydrocodone 325 mg-10 mg oral tablet Notes: Do not exceed 4gm/day of acetaminophen. (Same as: [place] 325/10) Inactive 09/18/2014 [facility] Hydralazine Hydrochloride 10 MG Oral Tablet Notes: (Same as: Apresoline) May interfere w/enteral feedings. Take With Food Inactive 09/18/2014 [facility] Acetaminophen 325 MG / Hydrocodone Marcio trate 10 MG Oral Tablet [[place] 10/325] Notes: Do not exceed 4gm/day of acetamin ophen. (Same as: [place] 325/10) Inactive 09/18/2014 [facility] metoprolol tartrate 50 mg oral tablet 50 mg = 1 tab, PO, Q12H, # 120 tab, 0 Refill(s) O n Hold 09/18/2014 [facility] clopidogrel 75 MG Oral Tablet [Plavix] 75 mg = 1 tab, PO, Daily, # 30 tab, 0 Refill(s) On Hold 09/18/2014 [facility] atorvastatin 80 MG Oral Tablet [Lipitor] 80 mg = 1 tab, PO, Bedtime, # 30 tab, 0 Refill(s) On Hold 09/18/2014 [facility] lisinopril 20 mg oral tablet 2 0 mg = 1 tab, PO, BID, # 60 tab, 0 Refill(s) On Hold 09/18/2014 [facility] Aspirin 325 MG Oral Tablet 325 mg, PO, Daily, # 30 tab, 0 Refill(s) On Hold 09/18/2014 [facility] Hydralazine Hydrochloride 10 MG Oral Tablet 160 mmHg, # 120 tab, 0 Refill(s) On Hold 09/18/2014 [facility] Saline Flush 0.9% Notes: (Same as: BD Posiflush) Inactive 09/18/2014 [facility] Valium Notes: (Same as: Valium) Inactive 09/18/2014 [facility] metoprolol tartrate Notes: (Sa me as: Lopressor) Inactive 09/18/2014 [facility] Lisinopril Notes: (Same as: Pr inivil, Zestril) Inactive 09/18/2014 [facility] clopidogrel 75 MG Oral Tablet [Plavix] 75 mg = 1 tab, PO, Daily Inactive 09/18/2014 [facility] lisinopril 20 mg oral tablet 2 0 mg = 1 tab, PO, BID, 0 Refill(s) Inactive 09/18/2014 [facility] Temazepam 30 MG Oral Capsule [Restoril] 30 mg = 1 cap, PO, Bedtime On Hold 09/18/2014 [facility] Diazepam 10 MG Oral Tablet [Valium] 10 mg = 1 tab, PO, TID, PRN Anxiety On Hold 09/18/2014 [facility] metoprolol tartrate 50 mg oral tablet 50 mg = 1 tab, PO, Q12H Inactive 09/18/2014 [facility] levothyroxine 200 mcg (0.2 mg) oral tablet 200 microgram = 1 tab, PO, Daily, # 30 tab On Hold 09/18/2014 [facility] Aspirin 325 mg, PO, Daily, 0 R efill(s) Inactive 09/18/2014 [facility] Centrum Adults 1 tab, PO, Olivia y, 0 Refill(s) On Hold 09/18/2014 [facility] atorvastatin 80 MG Oral Tablet [Lipitor] 80 mg = 1 tab, PO, Bedtime Inactive 09/18/2014 [facility] Acetaminophen 325 MG / Hydrocodone Marcio trate 10 MG Oral Tablet [[place] 10/325] 1-2 tab, PO, Q4-6H, PRN Pain On Hold 09/18/2014 [facility] potassium chloride 80 mEq, PO, Daily On Hold 09/18/2014 [facility] Phenergan Notes: Do not give I V push. (Same as: Phenergan) Inactive 09/18/2014 [facility] Metoprolol 5 mg, Route: IV, ON CE, Dosing Weight 79.545, kg, Start date: 09/18/14 5:09:00, Stop date: 09/18/14 5:09:00 Inactive 09/18/2014 [facility] Morphine 4 mg, Route: IVP, ONC E, Dosing Weight 79.545, kg, Start date: 09/18/14 5:08:00, Stop date: 09/18/14 5:08:00 Inactive 09/18/2014 [facility] Saline Flush 0.9% Notes: (Same as: BD Posiflush) Inactive 09/18/2014 [facility] Nitroglycerin Notes: (Same as: Nitroquick, Nitrostat) "Do Not Crush" Sublingual tablet Inactive 09/18/2014 [facility] Aspirin 325 MG Oral Tablet Not es: Take with food. Inactive 09/18/2014 [facility] Ativan 0.5 mg, Route: IVP, Bandar g form: INJ, ONCE, Dosing Weight 79.545, kg, PRN Anxiety, Start date: 09/18/14 2:14:00 Inactive 09/18/2014 [facility] Nitroglycerin 0.02 MG/MG Topical Ointment 0.5 inch, Route: TOP, Dosing Weight 79.545, kg, ONCE, Start date: 09/18/14 0:22:00, Stop date: 09/18/14 0:22:00 Inactiv e 09/18/2014 [facility] Aspirin 325 MG Oral Tablet 325 mg, Route: PO, Drug form: TAB, ONCE, Dosing Weight 79.545, kg, Priority: STAT, Start date: 09/18/14 0:10:00, Stop date: 09/18/14 0:10:00 Inactive 09/18/2014 [facility] Allergies, Adverse Reactions, Alerts Substance Category Reaction Severity Reaction type Status Date Reported Comments Source Compazine Assertion Drug allergy Active [facility] penicillins Assertion Drug allergy Active [facility] Reglan Assertion Drug allergy Active [facility] Toradol Assertion Drug allergy Active [facility] Zofran Assertion Drug allergy Active [facility] Immunizations No Data Provided for This Section Results Order Name Results Value Reference Range Date Interpretation Comments Source CARDIAC ENZYMES Total CK 63 12 - 191 04/12/2016 [facility] CARDIAC ENZYMES Troponin-I <0.02 0.00 - 0.40 04/12/2016 [facility] CARDIAC ENZYMES BNP 27 <=100 pg/mL 04/12/2016 [facility] CARDIAC ENZYMES Troponin-I <0.02 0.00 - 0.40 04/12/2016 [facility] CARDIAC ENZYMES CK MB 0.7 0.5 - 3.6 04/12/2016 [facility] CARDIAC ENZYMES Total CK 87 12 - 191 04/12/2016 [facility] CARDIAC ENZYMES CK MB Index 0.8 0.0 - 2.5 04/12/2016 [facility] CHEM PANEL Lipase Lvl 199 73 - 393 04/12/2016 [facility] CHEM [facility] eGFR 99 04/12/2016 Result Comment: The eGFR [...] should be multiplied by the estimated BMI. [facility] CHEM PANEL Creatinine Lvl 0.69 0.50 - 1.40 04/12/2016 [facility] CHEM PANEL Sodium Lvl 140 135 - 145 04/12/2016 [facility] CHEM PANEL Glucose Lvl 96 70 - 99 04/12/2016 [facility] CHEM PANEL BUN 22 7 - 22 04/12/2016 [facility] CHEM PANEL Chloride Lvl 110 95 - 109 04/12/2016 [facility] CHEM PANEL Alk Phos 87 39 - 136 04/12/2016 [facility] CHEM PANEL Potassium Lvl 4.3 3.5 - 5.1 04/12/2016 [facility] CHEM PANEL AST 21 0 - 37 04/12/2016 [facility] CHEM PANEL Bili Total 0.4 0.2 - 1.3 04/12/2016 [facility] CHEM PANEL CO2 22 24 - 32 04/12/2016 [facility] CHEM PANEL Calcium Lvl 8.8 8.5 - 10.5 04/12/2016 [facility] CHEM PANEL Total Protein 6.6 6.4 - 8.4 04/12/2016 [facility] CHEM PANEL B/C Ratio 32 6 - 25 04/12/2016 [facility] CHEM PANEL AGAP 12.3 10.0 - 20.0 04/12/2016 [facility] CHEM PANEL Globulin 3.4 2.7 - 4.2 04/12/2016 [facility] CHEM PANEL A/G Ratio 0.9 0.7 - 1.6 04/12/2016 [facility] CHEM PANEL Albumin Lvl 3.2 3.5 - 5.0 04/12/2016 [facility] CHEM PANEL ALT 24 0 - 65 04/12/2016 [facility] HEMATOLOGY PT 12.1 12.0 - 14.7 04/12/2016 [facility] HEMATOLOGY INR 0.88 0.85 - 1.17 04/12/2016 [facility] HEMATOLOGY PTT 25.1 22.9 - 35.8 04/12/2016 [facility] HEMATOLOGY Platelet 299 133 - 450 04/12/2016 [facility] HEMATOLOGY MPV 8.0 7.4 - 10.4 04/12/2016 [facility] HEMATOLOGY MCHC 34.0 32.0 - 36.0 04/12/2016 [facility] HEMATOLOGY RDW 14.9 11.5 - 14.5 04/12/2016 [facility] HEMATOLOGY MCH 31.9 27.0 - 31.0 04/12/2016 [facility] HEMATOLOGY Hct 36.7 36.0 - 48.0 04/12/2016 [facility] HEMATOLOGY MCV 93.8 80.0 - 98.0 04/12/2016 [facility] HEMATOLOGY WBC 8.8 3.7 - 10.4 04/12/2016 [facility] HEMATOLOGY Hgb 12.5 12.0 - 16.0 04/12/2016 [facility] HEMATOLOGY RBC 3.92 4.20 - 5.40 04/12/2016 [facility] HEMATOLOGY Lymphocytes # 4.7 1.0 - 5.5 04/12/2016 [facility] HEMATOLOGY Monocytes # 0.6 0.0 - 0.8 04/12/2016 [facility] HEMATOLOGY Eosinophils # 0.3 0.0 - 0.5 04/12/2016 [facility] HEMATOLOGY Basophils # 0.2 0.0 - 0.2 04/12/2016 [facility] HEMATOLOGY Segs 34.8 45.0 - 75.0 04/12/2016 [facility] HEMATOLOGY Segs-Bands # 3.1 1.5 - 8.1 04/12/2016 [facility] HEMATOLOGY Monocytes 6.9 2.0 - 12.0 04/12/2016 [facility] HEMATOLOGY Basophils 1.7 0.0 - 1.0 04/12/2016 [facility] HEMATOLOGY Lymphocytes 53.2 20.0 - 40.0 04/12/2016 [facility] HEMATOLOGY Eosinophils 3.4 0.0 - 4.0 04/12/2016 [facility] DRUG SCREEN UDS Note See Note (04/12/16 12:13 AM) 04/12/2016 [facility] DRUG SCREEN U Phencyc Scr Nega tive *NA* (04/12/16 12:13 AM) Negative 04/12/2016 [facility] DRUG SCREEN U Opiate Scr Nega tive *NA* (04/12/16 12:13 AM) Negative 04/12/2016 [facility] DRUG SCREEN U Cocaine Scr Nega tive *NA* (04/12/16 12:13 AM) Negative 04/12/2016 [facility] DRUG SCREEN U Benzodia Scr Posi tive *ABN* (04/12/16 12:13 AM) Negative 04/12/2016 [facility] DRUG SCREEN U Cannab Scr Posi tive *ABN* (04/12/16 12:13 AM) Negative 04/12/2016 [facility] DRUG SCREEN U Amph Scr Nega tive *NA* (04/12/16 12:13 AM) Negative 04/12/2016 [facility] DRUG SCREEN U Nisreen Scr Nega tive *NA* (04/12/16 12:13 AM) Negative 04/12/2016 [facility] URINE AND STOOL UA Ketones Negative mg/dL Negative mg/dL 04/12/2016 [facility] URINE AND STOOL UA Color Ltyellow 04/12/2016 [facility] URINE AND STOOL UA Urobilinogen <=1.0 mg/dL 0.1 - 1.0 04/12/2016 [facility] URINE AND STOOL UA Bili Negative *NA* (04/12/16 12:13 AM) Negative 04/12/2016 [facility] URINE AND STOOL UA Nitrite Negative (04/12/16 12:13 AM) Negative 04/12/2016 [facility] URINE AND STOOL UA Blood Negative (04/12/16 12:13 AM) Negative 04/12/2016 [facility] URINE AND STOOL UA WBC 4 0 - 5 04/12/2016 [facility] URINE AND STOOL UA Sq Epi Occasional /LPF Few /LPF 04/12/2016 [facility] URINE AND STOOL UA Leuk Est Trace *ABN* (04/12/16 12:13 AM) Negative 04/12/2016 [facility] URINE AND STOOL UA RBC 2 0 - 2 04/12/2016 [facility] URINE AND STOOL UA pH 6.0 5.0 - 8.0 04/12/2016 [facility] URINE AND STOOL UA Protein Negative mg/dL Negative mg/dL 04/12/2016 [facility] st URINE AND STOOL UA Glucose Negative mg/dL Negative mg/dL 04/12/2016 [facility] st URINE AND STOOL UA Spec Grav 1.020 <=1.030 04/12/2016 [facility] URINE AND STOOL UA Turbidity Clear (04/12/16 12:13 AM) Clear 04/12/2016 [facility] CARDIAC ENZYMES Total CK 89 12 - 191 12/08/2014 [facility] CARDIAC ENZYMES Troponin-I <0.02 0.00 - 0.40 12/08/2014 [facility] CARDIAC ENZYMES CK MB Index 1.5 0.0 - 2.5 12/08/2014 [facility] CARDIAC ENZYMES CK MB 1.3 0.5 - 3.6 12/08/2014 [facility] CHEM PANEL eGFR 99 12/08/2014 Result [...] should be multiplied by the estimated BMI. [facility] CHEM PANEL BUN 12 7 - 22 12/08/2014 [facility] CHEM PANEL Creatinine Lvl 0.7 0.5 - 1.4 12/08/2014 [facility] CHEM PANEL Glucose Lvl 130 70 - 99 12/08/2014 [facility] CHEM PANEL Chloride Lvl 110 95 - 109 12/08/2014 [facility] CHEM PANEL Potassium Lvl 4.0 3.5 - 5.1 12/08/2014 [facility] CHEM PANEL CO2 21 24 - 32 12/08/2014 [facility] CHEM PANEL Sodium Lvl 140 135 - 145 12/08/2014 [facility] CHEM PANEL Calcium Lvl 8.7 8.5 - 10.5 12/08/2014 [facility] CHEM PANEL AGAP 13.0 10.0 - 20.0 12/08/2014 [facility] Platelet 316 133 - 450 12/08/2014 [facility] RDW 16.5 11.5 - 14.5 12/08/2014 [facility] MPV 7.9 7.4 - 10.4 12/08/2014 [facility] Hct 38.0 36.0 - 48.0 12/08/2014 [facility] MCV 82.9 80.0 - 98.0 12/08/2014 [facility] MCH 27.0 27.0 - 31.0 12/08/2014 [facility] MCHC 32.6 32.0 - 36.0 12/08/2014 [facility] WBC 6.0 3.7 - 10.4 12/08/2014 [facility] RBC 4.59 4.20 - 5.40 12/08/2014 [facility] Hgb 12.4 12.0 - 16.0 12/08/2014 [facility] Lymphocytes # 2.5 1.0 - 5.5 12/08/2014 [facility] Segs-Bands # 2.5 1.5 - 8.1 12/08/2014 [facility] HEMATOLOGY Eosinophils # 0.3 0.0 - 0.5 12/08/2014 [facility] Monocytes # 0.6 0.0 - 0.8 12/08/2014 [facility] Basophils # 0.1 0.0 - 0.2 12/08/2014 [facility] Lymphocytes 42.1 20.0 - 40.0 12/08/2014 [facility] HEMATOLOGY Monocytes 10.5 2.0 - 12.0 12/08/2014 [facility] HEMATOLOGY Basophils 1.1 0.0 - 1.0 12/08/2014 [facility] HEMATOLOGY Eosinophils 4.2 0.0 - 4.0 12/08/2014 [facility] HEMATOLOGY Segs 42.1 45.0 - 75.0 12/08/2014 [facility] LIPIDS VLDL 31 12/08/2014 [facility] LIPIDS LDL (Calculated) 214 <=99 mg/dL 12/08/2014 [facility] LIPIDS HDL 43 >=61 mg/dL 12/08/2014 [facility] LIPIDS Chol 288 <=199 mg/dL 12/08/2014 [facility] LIPIDS Trig 153 <=149 mg/dL 12/08/2014 [facility] LIPIDS CHD Risk 6.70 3.90 - 5.80 12/08/2014 [facility] CARDIAC ENZYMES Troponin-I <0.02 0.00 - 0.40 12/08/2014 [facility] CHEM PANEL Lipase Lvl 64 73 - 393 12/08/2014 [facility] CARDIAC ENZYMES BNP 8 <=100 pg/mL 12/08/2014 [facility] CARDIAC ENZYMES Troponin-I <0.02 0.00 - 0.40 12/07/2014 [facility] CARDIAC ENZYMES CK MB Index 0.9 0.0 - 2.5 12/07/2014 [facility] CARDIAC ENZYMES CK MB 1.1 0.5 - 3.6 12/07/2014 [facility] CARDIAC ENZYMES Total CK 116 12 - 191 12/07/2014 [facility] CHEM PANEL Albumin Lvl 3.6 3.5 - 5.0 12/07/2014 [facility] CHEM PANEL eGFR 64 12/07/2014 Result [...] should be multiplied by the estimated BMI. [facility] CHEM PANEL Creatinine Lvl 1.0 0.5 [...] Glucose Lvl 97 70 - 99 12/07/2014 [facility] CHEM PANEL AGAP 12.1 10.0 - 20.0 12/07/2014 [facility] CHEM PANEL CO2 25 24 - 32 12/07/2014 [facility] CHEM PANEL Alk Phos 158 39 - 136 12/07/2014 [facility] HEMATOLOGY PTT 29.0 22.9 - 35.8 12/07/2014 [facility] HEMATOLOGY PT 13.5 12.0 - 14.7 12/07/2014 [facility] HEMATOLOGY INR 1.00 0.85 - 1.17 12/07/2014 [facility] HEMATOLOGY Segs-Bands # 3.1 1.5 - 8.1 12/07/2014 [facility] HEMATOLOGY Eosinophils # 0.1 0.0 - 0.5 12/07/2014 [facility] HEMATOLOGY Monocytes # 0.6 0.0 - 0.8 12/07/2014 [facility] HEMATOLOGY Lymphocytes # 2.7 1.0 - 5.5 12/07/2014 [facility] HEMATOLOGY Basophils 0.6 0.0 - 1.0 12/07/2014 [facility] HEMATOLOGY Monocytes 9.1 2.0 - 12.0 12/07/2014 [facility] HEMATOLOGY Eosinophils 2.2 0.0 - 4.0 12/07/2014 [facility] Lymphocytes 41.1 20.0 - 40.0 12/07/2014 [facility] Segs 47.0 45.0 - 75.0 12/07/2014 [facility] MPV 8.0 7.4 - 10.4 12/07/2014 [facility] MCHC 32.5 32.0 - 36.0 12/07/2014 [facility] RDW 16.5 11.5 - 14.5 12/07/2014 [facility] Platelet 330 133 - 450 12/07/2014 [facility] Hct 38.9 36.0 - 48.0 12/07/2014 [facility] MCV 82.8 80.0 - 98.0 12/07/2014 [facility] MCH 26.9 27.0 - 31.0 12/07/2014 [facility] WBC 6.6 3.7 - 10.4 12/07/2014 [facility] RBC 4.70 4.20 - 5.40 12/07/2014 [facility] Hgb 12.6 12.0 - 16.0 12/07/2014 [facility] ELECTROLYTES AGAP 13.1 10.0 - 20.0 11/30/2014 [facility] ELECTROLYTES Glucose Lvl 106 70 - 99 11/30/2014 [facility] ELECTROLYTES BUN 18 7 - 22 11/30/2014 [facility] ELECTROLYTES CO2 24 24 - 32 11/30/2014 [facility] ELECTROLYTES Chloride Lvl 107 95 - 109 11/30/2014 [facility] ELECTROLYTES Sodium Lvl 140 135 - 145 11/30/2014 [facility] ELECTROLYTES Potassium Lvl 4.1 3.5 - 5.1 11/30/2014 [facility] ELECTROLYTES eGFR 73 11/30/2014 Result Comment: [...] should be multiplied by the estimated BMI. [facility] ELECTROLYTES Creatinine Lvl 0.9 0.5 - 1.4 11/30/2014 [facility] ELECTROLYTES Calcium Lvl 8.6 8.5 - 10.5 11/30/2014 [facility] HEMATOLOGY Basophils # 0.3 0.0 - 0.2 11/30/2014 [facility] HEMATOLOGY Eosinophils # 0.4 0.0 - 0.5 11/30/2014 [facility] HEMATOLOGY Lymphocytes # 2.9 1.0 - 5.5 11/30/2014 [facility] HEMATOLOGY Monocytes # 0.6 0.0 - 0.8 11/30/2014 [facility] HEMATOLOGY Basophils 5.0 0.0 - 1.0 11/30/2014 [facility] HEMATOLOGY Segs-Bands # 2.0 1.5 - 8.1 11/30/2014 [facility] HEMATOLOGY Segs 32.0 45.0 - 75.0 11/30/2014 [facility] Lymphocytes 46.7 20.0 - 40.0 11/30/2014 [facility] Monocytes 10.2 2.0 - 12.0 11/30/2014 [facility] HEMATOLOGY Eosinophils 6.1 0.0 - 4.0 11/30/2014 [facility] MPV 8.0 7.4 - 10.4 11/30/2014 [facility] RDW 16.1 11.5 - 14.5 11/30/2014 [facility] Platelet 245 133 - 450 11/30/2014 [facility] MCH 28.3 27.0 - 31.0 11/30/2014 [facility] MCHC 33.8 32.0 - 36.0 11/30/2014 [facility] HEMATOLOGY MCV 83.7 80.0 - 98.0 11/30/2014 [facility] HEMATOLOGY Hct 33.9 36.0 - 48.0 11/30/2014 [facility] HEMATOLOGY RBC 4.05 4.20 - 5.40 11/30/2014 [facility] Hgb 11.5 12.0 - 16.0 11/30/2014 [facility] HEMATOLOGY WBC 6.1 3.7 - 10.4 [...] should be multiplied by the estimated BMI. [facility] CHEM PANEL BUN 13 7 - 22 11/28/2014 [facility] CHEM PANEL CO2 26 24 - 32 11/28/2014 [facility] CHEM PANEL Creatinine Lvl 0.9 0.5 - 1.4 11/28/2014 [facility] CHEM PANEL Glucose Lvl 107 70 - 99 11/28/2014 [facility] CHEM PANEL Calcium Lvl 8.8 8.5 - 10.5 11/28/2014 [facility] CHEM PANEL Chloride Lvl 105 95 - 109 11/28/2014 [facility] CHEM PANEL Potassium Lvl 3.7 3.5 - 5.1 11/28/2014 [facility] CHEM PANEL Sodium Lvl 142 135 - 145 11/28/2014 [facility] CHEM PANEL AGAP 14.7 10.0 - 20.0 11/28/2014 [facility] CHEM PANEL Bili Indirect 0.3 0.0 - 1.0 11/28/2014 [facility] CHEM PANEL Bili Total 0.4 0.2 - 1.3 11/28/2014 [facility] CHEM PANEL Bili Direct 0.1 0.0 - 0.3 11/28/2014 [facility] CHEM PANEL AST 26 0 - 37 11/28/2014 [facility] CHEM PANEL Alk Phos 146 39 - 136 11/28/2014 [facility] CHEM PANEL Albumin Lvl 3.0 3.5 - 5.0 11/28/2014 [facility] CHEM PANEL A/G Ratio 1.0 0.7 - 1.6 11/28/2014 [facility] CHEM PANEL Total Protein 5.9 6.4 - 8.4 11/28/2014 [facility] CHEM PANEL Globulin 2.9 2.0 - 4.0 11/28/2014 [facility] CHEM PANEL ALT 49 0 - 65 11/28/2014 [facility] HEMATOLOGY MPV 7.7 7.4 - 10.4 11/28/2014 [facility] HEMATOLOGY Hct 36.5 36.0 - 48.0 11/28/2014 [facility] HEMATOLOGY Hgb 12.5 12.0 - 16.0 11/28/2014 [facility] HEMATOLOGY RBC 4.47 4.20 - 5.40 11/28/2014 [facility] HEMATOLOGY Platelet 285 133 - 450 11/28/2014 [facility] HEMATOLOGY RDW 16.0 11.5 - 14.5 11/28/2014 [facility] HEMATOLOGY MCHC 34.3 32.0 - 36.0 11/28/2014 [facility] HEMATOLOGY MCH 28.0 27.0 - 31.0 11/28/2014 [facility] HEMATOLOGY MCV 81.7 80.0 - 98.0 11/28/2014 [facility] HEMATOLOGY WBC 5.9 3.7 - 10.4 11/28/2014 [facility] HEMATOLOGY Monocytes 10.2 2.0 - 12.0 11/28/2014 [facility] HEMATOLOGY Lymphocytes 36.4 20.0 - 40.0 11/28/2014 [facility] HEMATOLOGY Segs 45.5 45.0 - 75.0 11/28/2014 [facility] HEMATOLOGY Basophils # 0.1 0.0 - 0.2 11/28/2014 [facility] HEMATOLOGY Eosinophils # 0.3 0.0 - 0.5 11/28/2014 [facility] HEMATOLOGY Monocytes # 0.6 0.0 - 0.8 11/28/2014 [facility] HEMATOLOGY Lymphocytes # 2.2 1.0 - 5.5 11/28/2014 [facility] HEMATOLOGY Segs-Bands # 2.7 1.5 - 8.1 11/28/2014 [facility] HEMATOLOGY Basophils 2.5 0.0 - 1.0 11/28/2014 [facility] HEMATOLOGY Eosinophils 5.4 0.0 - 4.0 11/28/2014 [facility] CHEM PANEL Lipase Lvl 107 73 - 393 11/25/2014 [facility] ELECTROLYTES Sodium Lvl 141 135 - 145 11/25/2014 [facility] ELECTROLYTES Potassium Lvl 3.5 3.5 - 5.1 11/25/2014 [facility] ELECTROLYTES Chloride Lvl 110 95 - 109 11/25/2014 [facility] ELECTROLYTES eGFR 84 11/25/2014 Result Comment: [...] should be multiplied by the estimated BMI. [facility] ELECTROLYTES Albumin Lvl 3.1 3.5 - 5.0 11/25/2014 [facility] ELECTROLYTES Alk Phos 182 39 - 136 11/25/2014 [facility] ELECTROLYTES Bili Total 0.5 0.2 - 1.3 11/25/2014 [facility] ELECTROLYTES ALT 95 0 - 65 11/25/2014 [facility] ELECTROLYTES AST 63 0 - 37 11/25/2014 [facility] ELECTROLYTES Glucose Lvl 89 70 - 99 11/25/2014 [facility] ELECTROLYTES BUN 9 7 - 22 11/25/2014 [facility] ELECTROLYTES Creatinine Lvl 0.8 0.5 - 1.4 11/25/2014 [facility] ELECTROLYTES Total Protein 6.6 6.4 - 8.4 11/25/2014 [facility] ELECTROLYTES CO2 21 24 - 32 11/25/2014 [facility] ELECTROLYTES Calcium Lvl 8.4 8.5 - 10.5 11/25/2014 [facility] ELECTROLYTES A/G Ratio 0.9 0.7 - 1.6 11/25/2014 [facility] ELECTROLYTES AGAP 13.5 10.0 - 20.0 11/25/2014 [facility] ELECTROLYTES B/C Ratio 11 6 - 25 11/25/2014 [facility] ELECTROLYTES Globulin 3.5 2.0 - 4.0 11/25/2014 [facility] HEMATOLOGY WBC 5.9 3.7 - 10.4 11/25/2014 [facility] HEMATOLOGY MCV 82.2 80.0 - 98.0 11/25/2014 [facility] HEMATOLOGY RBC 4.42 4.20 - 5.40 11/25/2014 [facility] HEMATOLOGY Hct 36.3 36.0 - 48.0 11/25/2014 [facility] HEMATOLOGY Hgb 12.3 12.0 - 16.0 11/25/2014 [facility] HEMATOLOGY MPV 7.9 7.4 - 10.4 11/25/2014 [facility] HEMATOLOGY MCHC 33.8 32.0 - 36.0 11/25/2014 [facility] HEMATOLOGY MCH 27.8 27.0 - 31.0 11/25/2014 [facility] HEMATOLOGY Platelet 283 133 - 450 11/25/2014 [facility] HEMATOLOGY RDW 16.0 11.5 - 14.5 11/25/2014 [facility] HEMATOLOGY Lymphocytes # 3.1 1.0 - 5.5 11/25/2014 [facility] HEMATOLOGY Segs-Bands # 1.9 1.5 - 8.1 11/25/2014 [facility] HEMATOLOGY Eosinophils # 0.3 0.0 - 0.5 11/25/2014 [facility] HEMATOLOGY Basophils # 0.1 0.0 - 0.2 11/25/2014 [facility] HEMATOLOGY Monocytes # 0.4 0.0 - 0.8 11/25/2014 [facility] HEMATOLOGY Monocytes 7.1 2.0 - 12.0 11/25/2014 [facility] HEMATOLOGY Lymphocytes 53.4 20.0 - 40.0 11/25/2014 [facility] HEMATOLOGY Basophils 2.1 0.0 - 1.0 11/25/2014 [facility] HEMATOLOGY Eosinophils 4.6 0.0 - 4.0 11/25/2014 [facility] HEMATOLOGY Segs 32.8 45.0 - 75.0 11/25/2014 [facility] CHEM PANEL Magnesium Lvl 1.9 1.8 - 2.4 11/25/2014 [facility] CHEM PANEL Amylase Lvl 50 25 - 115 11/25/2014 [facility] CHEM PANEL Lipase Lvl 111 73 - 393 11/25/2014 [facility] CHEM PANEL Globulin 3.4 2.0 - 4.0 11/25/2014 [facility] CHEM PANEL B/C Ratio 12 6 - 25 11/25/2014 [facility] CHEM PANEL A/G Ratio 0.9 0.7 - 1.6 11/25/2014 [facility] CHEM PANEL Bili Total 0.6 0.2 - 1.3 11/25/2014 [facility] CHEM PANEL ALT 111 0 - 65 11/25/2014 [facility] CHEM PANEL AST 83 0 - 37 11/25/2014 [facility] CHEM PANEL Albumin Lvl 3.2 3.5 - 5.0 11/25/2014 [facility] CHEM PANEL Alk Phos 192 39 - 136 11/25/2014 [facility] CHEM PANEL Total Protein 6.6 6.4 - 8.4 11/25/2014 [facility] URINE AND STOOL UA Urobilinogen <=1.0 mg/dL 0.1 - 1.0 2014 [facility] URINE AND STOOL UA RBC 1 0 - 2 2014 [facility] URINE AND STOOL UA Mucus Few /LPF None Seen /LPF 2014 [facility] URINE AND STOOL UA Turbidity Clear (11/23/14 11:47 PM) Clear 2014 [facility] URINE AND STOOL UA Spec Grav 1.023 <=1.030 2014 [facility] URINE AND STOOL UA Color Yellow *NA* (11/23/14 11:47 PM) Yellow 2014 [facility] URINE AND STOOL UA Bili Negative *NA* (11/23/14 11:47 PM) Negative 2014 [facility] URINE AND STOOL UA Glucose Negative mg/dL Negative mg/dL 2014 [facility] URINE AND STOOL UA Ketones Negative mg/dL Negative mg/dL 2014 [facility] st URINE AND STOOL UA Protein Negative mg/dL Negative mg/dL 2014 [facility] st URINE AND STOOL UA pH 5.0 5.0 - 8.0 2014 [facility] URINE AND STOOL UA Sq Epi Few /LPF Few /LPF 2014 [facility] URINE AND STOOL UA WBC 12 0 - 5 2014 [facility] URINE AND STOOL UA Leuk Est Trace *ABN* (11/23/14 11:47 PM) Negative 2014 [facility] URINE AND STOOL UA Blood Negative (11/23/14 11:47 PM) Negative 2014 [facility] URINE AND STOOL UA Nitrite Negative (11/23/14 11:47 PM) Negative 2014 [facility] CARDIAC ENZYMES CK MB Index 1.0 0.0 - 2.5 2014 [facility] CARDIAC ENZYMES CK MB 0.8 0.5 - 3.6 2014 [facility] CARDIAC ENZYMES Total CK 81 12 - 191 2014 [facility] CARDIAC ENZYMES Troponin-I <0.02 0.00 - 0.40 2014 [facility] CHEM PANEL Lactic Acid Lvl 1.0 0.5 - 2.2 2014 [facility] CHEM PANEL Lipase Lvl 479 73 - 393 2014 [facility] CHEM PANEL Amylase Lvl 86 25 - 115 2014 [facility] HEMATOLOGY INR 0.91 0.85 - 1.17 11/23/2014 [facility]EMATOLOGY PT 12.2 12.0 - 14.7 11/23/2014 [facility] HEMATOLOGY PTT 29.7 22.9 - 35.8 11/23/2014 [facility] CARDIAC ENZYMES BNP 9 <=100 pg/mL 11/23/2014 [facility] CARDIAC ENZYMES Troponin-I <0.02 0.00 - 0.40 11/23/2014 [facility] CARDIAC ENZYMES Total CK 77 12 - 191 11/23/2014 [facility] CARDIAC ENZYMES CK MB 0.9 0.5 - 3.6 11/23/2014 [facility] CARDIAC ENZYMES CK MB Index 1.2 0.0 - 2.5 11/23/2014 [facility] CHEM PANEL Magnesium Lvl 1.7 1.8 - 2.4 11/23/2014 [facility] CHEM PANEL B/C Ratio 19 6 - 25 11/23/2014 [facility] CARDIAC ENZYMES Total CK 67 12 - 191 09/18/2014 [facility] CARDIAC ENZYMES Troponin-I <0.02 0.00 - 0.40 09/18/2014 [facility] CARDIAC ENZYMES Total CK 62 12 - 191 09/18/2014 [facility] CARDIAC ENZYMES Troponin-I <0.02 0.00 - 0.40 09/18/2014 [facility] LIPIDS VLDL 29 09/18/2014 [facility] LIPIDS LDL (Calculated) 140 <=99 mg/dL 09/18/2014 [facility] LIPIDS Trig 147 <=149 mg/dL 09/18/2014 [facility] LIPIDS CHD Risk 3.86 3.90 - 5.80 09/18/2014 [facility] LIPIDS Chol 228 <=199 mg/dL 09/18/2014 [facility] LIPIDS HDL 59 >=61 mg/dL 09/18/2014 [facility] CARDIAC ENZYMES Troponin-I <0.02 0.00 - 0.40 09/18/2014 [facility] CARDIAC ENZYMES Total CK 59 12 - 191 09/18/2014 [facility] CHEM PANEL eGFR 85 09/18/2014 <sup>1</sup>Result [...] values reflect the clinical guidelines
of the [place] [employer]. [facility] CHEM PANEL Globulin 3.2 2.0 - 4.0 09/18/2014 [facility] CHEM PANEL B/C Ratio 22 6 - 25 09/18/2014 [facility] CHEM PANEL AGAP 10.6 10.0 - 20.0 09/18/2014 [facility] CHEM PANEL A/G Ratio 1.1 0.7 - 1.6 09/18/2014 [facility] [place] PTT 28.8 22.9 - 35.8 09/18/2014 <sup>4</sup>Interpretive Data: Heparin T herapeutic Range: 57 - 92 Seconds [facility] [place] PT 12.5 12.0 - 14.7 09/18/2014 [facility] [place] INR 0.94 0.85 - 1.17 09/18/2014 <sup>3</sup>Interpretive Data: RECOMMEND ED RANGES FOR PROTIME INR:
2.0- 3.0 for most medical and surgical thromboembolic states.
2.5-3.5 for artificial heart valves and recurrent embolism.

INR SHOULD BE USED ONLY FOR PATIENTS ON STABLE ANTICOAGULANT THERAPY. [facility] [place] MPV 7.4 7.4 - 10.4 09/18/2014 [facility] [place] MCHC 34.1 32.0 - 36.0 09/18/2014 [facility] [place] RDW 16.8 11.5 - 14.5 09/18/2014 [facility] [place] Platelet 353 133 - 450 09/18/2014 [facility] [place] Hgb 11.4 12.0 - 16.0 09/18/2014 [facility] [place] MCV 83.0 80.0 - 98.0 09/18/2014 [facility] [place] MCH 28.3 27.0 - 31.0 09/18/2014 [facility] [place] Hct 33.4 36.0 - 48.0 09/18/2014 [facility] [place] RBC 4.03 4.20 - 5.40 09/18/2014 [facility] [place] WBC 7.0 3.7 - 10.4 09/18/2014 [facility] [place] Lymphocytes # 3.7 1.0 - 5.5 09/18/2014 [facility] [place] Monocytes # 0.6 0.0 - 0.8 09/18/2014 [facility] [place] Eosinophils # 0.1 0.0 - 0.5 09/18/2014 [facility] [place] Lymphocytes 52.2 20.0 - 40.0 09/18/2014 [facility] [place] Basophils 0.2 0.0 - 1.0 09/18/2014 [facility] HEMATOLOGY Eosinophils 1.8 0.0 - 4.0 09/18/2014 [facility] HEMATOLOGY Segs-Bands # 2.6 1.5 - 8.1 09/18/2014 [facility] HEMATOLOGY Monocytes 8.1 2.0 - 12.0 09/18/2014 [facility] HEMATOLOGY Segs 37.7 45.0 - 75.0 09/18/2014 [facility] Pathology Reports No Data Provided for [...] perfusion study. Normal resting LV function. 04/12/2016 [facility] 1view DX Clinical Indica tion: Chest [...] 1. Unremarkable chest x-ray. SL: RAY 04/11/2016 [facility] Pulmonary Embolism CTA ADDENDUM: TECHNIQUE: Thin collimation axial images of the pulmonary arteries and routine CT chest with IV contrast. 2-D and 3-D reformatted images were performed for further evaluation. SL: 12 Dictated on: 01/16/2015 7:59:50AM Interpreted by: MD Issa Joseph V Transcribed by: Creditablecribangie 01/16/2015 7:59:50AM Signed by: MD Issa Joseph [...] effus ion, or pneumothorax. SL: 12 12/07/2014 [facility] Chest 1view DX EXAMINATION: est 1view [...] focal osseous lesion is appreciated. SL:17 12/07/2014 [facility] Cardiac SPECT multi studies NM PROCEDURE: [...] resting LV function. [place] [facility] [place] [facility] Abdomen/Pelvis w IV contrast CT PROCEDURE: [...] spondylosis. DLP: 1522 mGy-cm SL: 13 2014 [facility] 1view DX PORTABLE CHES T (chest [...] prior cholecystectomy. Coding: Chest 1view CPT code: 46950 SL: 13 Amarjit Sanchez M.D. 11/23/2014 [facility] Chest 2 views DX EXAM: Chest 2 views HISTORY: Chest pain. COMPARISON: None. TECHNIQUE: Frontal and lateral views of the chest. FINDINGS: The lungs are well-inflated. No pneumonia, edema or pleural effusion. Heart size normal. Coronary artery stents. IMPRESSION: No acute findings in the chest. SL: 12 09/17/2014 [facility] Consultation Notes No Data Provided for This Section Discharge Summaries No Data Provided for This Section History and Physicals No Data Provided for This Section Vital Signs Vital Sign Value Date Comments Source Heart Rate 79 04/13/2016 [facility] Temperature Oral (F) 98.7 F 04/13/2016 [facility] Systolic (mm Hg) 130 04/13/2016 [facility] Diastolic (mm Hg) 82 04/13/2016 [facility] Respitory Rate 18 04/13/2016 [facility] Systolic (mm Hg) 128 04/13/2016 [facility] Diastolic (mm Hg) 86 04/13/2016 [facility] Temperature Oral (F) 98.7 F 04/13/2016 [facility] Respitory Rate 18 04/13/2016 [facility] Heart Rate 87 04/13/2016 [facility] Weight 75 0 04/13/2016 [facility] Height 177.8 cm 04/13/2016 [facility] BMI Calculated 23.72 04/13/2016 [facility] Systolic (mm Hg) 112 04/13/2016 [facility] Diastolic (mm Hg) 81 04/13/2016 [facility] Temperature Oral (F) 98.0 F 04/13/2016 [facility] Heart Rate 79 04/13/2016 [facility] Respitory Rate 18 04/13/2016 [facility] Weight 75 0 04/12/2016 [facility] BMI Calculated 23.72 04/12/2016 [facility] Height 177.8 cm 04/12/2016 [facility] Height 160.02 cm 04/12/2016 [facility] BMI Calculated 28.4 04/12/2016 [facility] Weight 72.727 04/12/2016 [facility] Weight 70.455 03/31/2016 [facility] Height 160.02 cm 03/31/2016 [facility] Systolic (mm Hg) 160 03/31/2016 [facility] Diastolic (mm Hg) 116 03/31/2016 [facility] Temperature Oral (F) 97.9 F 03/31/2016 [facility] Respitory Rate 18 03/31/2016 [facility] Heart Rate 99 03/31/2016 [facility] BMI Calculated 27.51 03/31/2016 [facility] Temperature Oral (F) 98.2 F 03/27/2016 [facility] Respitory Rate 16 03/27/2016 [facility] Heart Rate 92 03/27/2016 [facility] Systolic (mm Hg) 164 03/27/2016 [facility] Diastolic (mm Hg) 102 03/27/2016 [facility] Weight 72.727 03/27/2016 [facility] BMI Calculated 28.4 03/27/2016 [facility] Height 160.02 cm 03/27/2016 [facility] Respitory Rate 18 03/27/2016 [facility] Heart Rate 103 03/27/2016 [facility] Systolic (mm Hg) 142 03/27/2016 [facility] Diastolic (mm Hg) 103 03/27/2016 [facility] Temperature Oral (F) 98.3 F 03/27/2016 [facility] Respitory Rate 20 12/08/2014 [facility] Systolic (mm Hg) 139 12/08/2014 [facility] Diastolic (mm Hg) 89 12/08/2014 [facility] Weight 81.818 12/08/2014 [facility] Systolic (mm Hg) 121 12/08/2014 [facility] Diastolic (mm Hg) 84 12/08/2014 [facility] Respitory Rate 20 12/08/2014 [facility] Temperature Oral (F) 97.4 F 12/08/2014 [facility] Heart Rate 84 12/08/2014 [facility] Height 160.02 cm 12/08/2014 [facility] Weight 81.818 12/08/2014 [facility] BMI Calculated 31.95 12/08/2014 [facility] Temperature Oral (F) 97.5 F 12/08/2014 [facility] Heart Rate 95 12/08/2014 [facility] Systolic (mm Hg) 159 12/08/2014 [facility] Diastolic (mm Hg) 96 12/08/2014 [facility] Respitory Rate 20 12/08/2014 [facility] Temperature Oral (F) 97.7 F 12/08/2014 [facility] Weight 77.273 12/07/2014 [facility] BMI Calculated 30.18 12/07/2014 [facility] Height 160.02 cm 12/07/2014 [facility] Heart Rate 130 12/07/2014 [facility] Temperature Oral (F) 97.9 F 12/01/2014 [facility] Respitory Rate 15 12/01/2014 [facility] Systolic (mm Hg) 114 12/01/2014 [facility] Diastolic (mm Hg) 73 12/01/2014 [facility] Heart Rate 70 12/01/2014 [facility] Systolic (mm Hg) 121 12/01/2014 [facility] Diastolic (mm Hg) 84 12/01/2014 [facility] Respitory Rate 16 12/01/2014 [facility] Systolic (mm Hg) 155 12/01/2014 [facility] Diastolic (mm Hg) 101 12/01/2014 [facility] Heart Rate 81 12/01/2014 [facility] Temperature Oral (F) 98.1 F 12/01/2014 [facility] Respitory Rate 18 12/01/2014 [facility] Temperature Oral (F) 97.5 F 12/01/2014 [facility] Heart Rate 81 12/01/2014 [facility] Weight 81.818 11/26/2014 [facility] Height 160.02 cm 11/23/2014 [facility] Weight 81.818 11/23/2014 [facility] BMI Calculated 31.95 11/23/2014 [facility] Heart Rate 76 09/18/2014 [facility] Systolic (mm Hg) 120 09/18/2014 [facility] Diastolic (mm Hg) 77 09/18/2014 [facility] Temperature Oral (F) 97.9 F 09/18/2014 [facility] Respitory Rate 16 09/18/2014 [facility] Weight 79.545 09/18/2014 [facility] Height 160.02 cm 09/18/2014 [facility] BMI Calculated 31.06 09/18/2014 [facility] Heart Rate 91 09/18/2014 [facility] Respitory Rate 14 09/18/2014 [facility] Systolic (mm Hg) 166 09/18/2014 [facility] Diastolic (mm Hg) 116 09/18/2014 [facility] Temperature Oral (F) 98.3 F 09/18/2014 [facility] Temperature Oral (F) 98.0 F 09/18/2014 [facility] Systolic (mm Hg) 153 09/18/2014 [facility] Diastolic (mm Hg) 99 09/18/2014 [facility] Heart Rate 90 09/18/2014 [facility] Respitory Rate 18 09/18/2014 [facility] Height 160.02 cm 09/18/2014 [facility] BMI Calculated 31.06 09/18/2014 [facility] Weight 79.545 09/18/2014 [facility] Encounters Location Location Details Encounter Type Encounter Number Reason For Visit Attending Provider ADM Date DC Date Status Source [facility] OBS Observation Patient [id number] Ruddy Amato 09/17/2014 09/18/2014 [facility] Inpatient [id number] Chevy Callaway 11/23/2014 12/01/2014 [facility] OBS Observation Patient [id number] Liliana Lyles 12/07/2014 12/08/2014 [facility] Emergency [id number] Lokesh Aguilera 03/27/2016 03/27/2016 [facility] Emergency [id number] Rosa Lam 03/31/2016 03/31/2016 [facility] Observation [id number] Jenna Ceja 04/12/2016 04/13/2016 [facility] Procedures Procedure Code Date Perfomer Comments Source Hysterectomy [id number] [facility] st Procedure on back [id number] [facility] Thyroidectomy [id number] [facility] st CABG x 1 - Coronary artery bypass graft x 1<sup>1</sup > [id number] may 2015 [facility] Stent placement [id number] [facility] Cholecystectomy [id number] [facility] Assessment and Plan Assessment and Plan Date Source Extracted from:Title: Clinical Document Author: Gaurav Russo MD Date: 04/13/16 Progress Note Cardiology [facility] Impression: Atypical chest pain. [...] PO QID-Before Meals Continuous Infusions: None 04/13/2016 [facility] No Data Provided for This Section [...] stop now that has a job. 2014 [facility] Family History No Data Provided for This Section Advance Directives No Data Provided for This Section Functional Status No Data Provided for This Section
--- OUTSIDE RECORDS SUMMARY | 2020-01-08 08:58 | XMS REPORT | Clinical Summary ---
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 Name Role Phone PCP Unavailable Allergies Comments [...] Not on file Results Not on fileafter 01/07/2019 Insurance Payer Benefit Subscriber ID Type Phone Address Plan / Group [employer] FED xxxxxxxxx [address] [place] [address] Advance Directives For more information, please contact: [facility] [address] [place] [address] Date Inactivated Comments Code Status Date Activated 06/05/2016 12:30 AM Full Code 06/04/2016 11:27 AM This code status was determined by: Patient 06/04/2016 11:27 AM Full Code 05/30/2016 9:51 PM This code status was determined by: Patient
--- OUTSIDE RECORDS SUMMARY | 2020-01-08 08:59 | XMS REPORT | Continuity of Care Document ---
Author Author [facility] t Organization [facility] Address [address] [place] [address] Phone Unavailable Care Team Providers Care Instructional Design Consultant Name Role Phone NONSTAFF PCP Unavailable Oumou HASTINGS Attphys Unavailable ANTELMO HEART Attphys Unavailable WHITLEY WHEELER Attphys Unavailable Mougouris, Taso Attphys Rosa Lam Attphys Enrique Aguilera Attphys Rafal, Dc Adnan Attphys CesiaBlake Chevy Attphys Al-Sandoval Billam Attphys ANTELMO HEART Admphys Unavailable DOLLY GALINDO Admphys Unavailable Mougouris, Taso Admphys Rafal, Dc Adnan Admphys CesiaGreggBlake Chevy Admphys Al-Azzeh Sandoval Haytham Admphys Payers Payer Name Policy Type Policy Number Effective Date Expiration Date Errol whitley [facility] Employees [id number] 2016 00:00:0 0 [facility] Problems Condition Name Condition Details Condition Category Status Onset Date Resolution Date Last Treatment Date Treating Clinician Comments Source Acute chest pain Acute chest pain Disease Active 2016-05-30 00:00:00 [facility] MOUTH PAIN MOUT H PAIN Active 03/27/2016 [facility] Diagnosis Active 2016-03-27 00:00:00 2016-03-27 10:51:00 [facility] ACUTE CHEST PAIN. GASTRP ARESOS ACUTE CHEST PAIN. GASTRP ARESOS Active 04/11/2015 [facility] Active 2015-04-11 16:00: 00 2016-04-12 02:19:00 [facility] ACUTE CHEST PAIN GASTRPARESIS ACUTE CHEST PAIN GASTRPARESIS Active 04/11/2015 [facility] Diagnosis Active 04-11 16:00:00 2016-04-16 15:47:00 [facility] CHEST PAIN CHES T PAIN Active 12/07/2014 [facility] Active 2014-12-07 00:00:00 2016-08-13 10:57:00 [facility] ACUTE CHEST PAIN, RULE OUT ACS ACUTE CHEST PAIN, RULE OUT ACS Active 11/23/2014 [facility] Diagnosis Active 2014-11-23 00:00 :00 2016-05-08 18:50:00 [facility] Chest pain Problem Active 2014-08-04 00:00:00 [facility] Hypertension Problem Active 2014-08-04 00:00:00 [facility] Acute coronary syndrome Problem Active 2014-05-30 00:00:00 [facility] Unstable angina pectoris Problem Active 2014-05-30 00:00:00 [facility] Hypertensive crisis Problem Active 2014-05-30 00:00:00 [facility] Dyspnea Problem Active [facility] Nausea Problem Active [facility] Myocardial infarction (disorder) Myocardial infarction (disorder) Resolved Problem 04/16/2016 3 [facility] Problem Resolved 2016-04-16 03:18:48 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 Congestive heart failure (disorder) Congestive heart failure (disorder) Active Problem 04/16/2016 [facility] Problem Active 2016-04-16 03:18:48 [facility] CHEST PAIN NOS CHES T PAIN NOS Active [facility] Active 2016-05-08 18:50:00 [facility] CHEST PAIN, UNSPECIFIED CHES T PAIN, UNSPECIFIED Active [facility] Active 2016-04-16 15:47:00 [facility] GASTROPARESIS SLIME ROPARESIS Active [facility] Active 2016-04-16 15:47:00 [facility] Discharge Diagnosis: Dental caries, unspecified Discharge Diagnosis: Dental caries, unspecified 03/27/2016 03/30/2016 [facility] Problem 2016-03-27 06:00:00 2016-03-30 04:00:14 2016-03 04:00:14 [facility] Dis[facility] Diagnosis: Other specified dis orders of teeth and supporting structures Discharge Diagno sis: Other specified disorders of teeth and supporting structures 03/27/2016 03/30/2016 [facility] Problem 2016-03-27 06:00:00 2016-03-30 04:00:14 2016-03-30 04:00:14 [facility] Discharge Diagnosis: Periapical abscess without sinus Discharge Diagnosis: Periapical abscess without sinus 03/27/2016 03/30/2016 [facility] Problem 2016-03-27 06:00:00 2016-03-30 04:00:14 2016-03 04:00:14 [facility] Allergies, Adverse Reactions, Alerts Allergy Name Allergy Type Status Severity Reaction(s) Onset Date Inacti ve Date Treating Clinician Comments Source prochlorperazine edisylate DA Active SV 2019-10-03 00:00:0 0 [facility] metoclopramide HCl DA Active SV 2019-10-03 00:00:00 [facility] Iodinated Contrast Media DA Active MO 2019-10-03 00:00:00 [facility] ketorolac DA Active SV 2019-10-03 00:00:00 [facility] penicillin G DA Active SV 2019-10-03 00:00:00 [facility] Iodine And Iodide Containing Products Propensity to adverse reactio ns Active 2016-06-03 00:00:00 [facility] Dye Drug Allergy Active Itching, Swelling, Rash 2016-05-31 00:0 0:00 [facility] Prochlorperazine Propensity to adverse reactions Active Rash 2016-05-30 00:00:00 [facility] Penicillins Propensity to adverse reactions Active Swe lling 2016-05-30 00:00:00 [facility] Metoclopramide Hcl Propensity to adverse reactions Active 2016-05-30 00:00:00 jittery [facility] Ketorolac Propensity to adverse reactions Active [facility] 05[facility]30 [facility] (Pf) Propensity to adverse reactions Active Rash 2016-05-30 00:00:00 [facility] prochlorperazine edisylate DA Active 2016-04-27 00:00:0 0 [facility] metoclopramide HCl DA Active SV 2016-04-27 00:00:00 [facility] morphine DA Active MO 2016-04-27 00:00:00 [facility] ondansetron DA Active U 2016-04-27 00:00:00 [facility] ketorolac DA Active SV 2016-04-27 00:00:00 [facility] penicillin G DA Active SV 2016-04-27 00:00:00 [facility] Penicillin Allergy to substance Active Severe THROAT SWELLING 2016-03-11 00:00:00 [facility] prochlorperazine edisylate Allergy to substance Active Mild RASH 2011-08-02 00:00:00 [facility] prochlorperazine maleate Allergy to substance Active Mild R ROC 2011-08-02 00:00:00 [facility] metoclopramide HCl Allergy to substance Active Mild JERKY 00:00:00 [facility] tromethamine Allergy to substance Active Mild AYUSH H 2011-08-02 00:00:00 [facility] Compazine Compazine Active Navarro riahussein [place] penicillins penicillins Active [facility] Reglan Reglan Active [facility] ermann Toradol Toradol Active [facility] Zofran Zofran Active [facility] Social History Social Habit Start Date Stop Date Quantity Comments Source Sex Assigned At [facility] Alcohol Comment 2016-05-30 00:00:00 2016-05-30 00:00:00 two times brice rodriguez [facility] Social History 2014 05:40:48 2014 05:40:48 [facility] Smoking Status Start Date Stop Date Source Former smoker 2016-06-08 00:00:00 2016-06-08 00:00:00 [facility] Medications Ordered Medication Name Filled Medication Name Start Date Stop Da te Current Medication? Ordering Clinician Indication Dosage Frequency Signature (SIG) Comments Components Source Cefuroxime Axetil (Cefuroxime) 250 Mg TABLET Cefuroxim e Axetil (Cefuroxime) 250 Mg TABLET 2019-09-29 08:21:00 Yes 250 Every 12 Hours [facility] Amlodipine Besylate (Norvasc) 5 Mg TAB Amlodipine Besylate ( Norvasc) 5 Mg TAB 2019-09-29 08:20:00 Yes 5 Daily [facility] Docusate Sodium (Colace) 100 Mg CAP Docusate Sodium (Colace) 100 Mg CAP 2019-09-29 08:20:00 Yes 100 Every 12 Hours [facility] Lactulose Lactulose 2019-09-29 08:20:00 Yes 20 Twice A Day as needed for Constipation [facility] Magnesium Hydroxide (Milk Of Magnesia) 2,400 Mg/10 Ml ORAL.SUSP Magnesium Hydroxide (Milk Of Magnesia) 2,400 Mg/10 Ml ORAL.SUSP 2019-09-29 08:20:00 Yes 30 Bedtime [facility] Ondansetron Hcl (Zofran*) 4 Mg TABLET Ondansetron Hcl (Zofra n*) 4 Mg TABLET 2019-09-29 08:20:00 Yes 4 Every 4 Hour s as needed for Nausea/Vomiting [facility] Sennosides (Senna Laxative) 8.6 Mg TABLET Sennosides ( Senna Laxative) 8.6 Mg TABLET 2019-09-29 08:20:00 Yes 8.6 Every 12 Hours [facility] Aspirin (Aspirin Ec) 81 Mg TABLET. Aspirin (Aspirin Ec) 81 Mg TABLET.DR 2019-09-06 10:47:00 Yes 81 Every Morning [facility] Atorvastatin Atorvastatin 2019-09-06 10:47:00 Yes 80 Bedtime [facility] Docusate Sodium (Colace) 100 Mg CAP Docusate Sodium (Colace) 100 Mg CAP 2019-09-06 10:47:00 Yes 100 Twice A Day as nee ded for Constipation [facility] Metoprolol Succinate (Toprol Xl) 25 Mg TAB.ER.24H Meto prolol Succinate (Toprol Xl) 25 Mg TAB.ER.24H 2019-09-06 10:47:00 Yes 12.5 Ally ly [facility] Sennosides (Senna Lax) 8.6 Mg TABLET Sennosides (Senna Lax) 8.6 Mg TABLET 2019-09-06 10:47:00 Yes 8.6 Twice A Day as nee ded for Constipation [facility] Tramadol Hcl (Ultram 50MG*) 50 Mg TAB Tramadol Hcl (Ultram 5 0MG*) 50 Mg TAB 2019-09-06 10:47:00 Yes 50 Every 8 Hours as n eeded for Pain [facility] traMADol (ULTRAM) 50 mg tablet 2016-06-04 00:00:00 Yes 100mg [id number] Take 2 tablets (100 mg total) by mouth 3 (three) times daily. Max Daily Amount: 300 mg [facility] levothyroxine (SYNTHROID, LEVOTHROID) 175 MCG tablet 2 20:58:00 Yes 175ug Take 175 mcg by mouth Every morning on a n empty stomach. [facility] temazepam (RESTORIL) 30 mg capsule 2016-05-30 17:05:25 Yes 30mg Take 30 mg by mouth every night as needed for Sleep. [facility] HYDROcodone-acetaminophen (NORCO 10-325) 10-325 mg per table t 2016-05-30 17:04:01 Yes 1{tbl} Take 1 tab let by mouth every 6 (six) hours as needed for Pain. [facility] lisinopril (PRINIVIL,ZESTRIL) 10 MG tablet 2016-05-30 17:03:47 Yes 10mg QD Take 10 mg by mouth daily. [facility] atorvastatin (LIPITOR) 80 MG tablet 2016-05-30 17:03:47 Yes 80mg QD Take 80 mg by mouth daily. [facility] diazePAM (VALIUM) 5 MG tablet 2016-05-30 17:03:47 Yes 5mg Take 5 mg by mouth every 6 (six) hours as needed for Anxiety. [facility] amLODIPine (NORVASC) 10 MG tablet 2016-05-30 17:03:46 Yes 10mg QD Take 10 mg by mouth daily. [facility] pantoprazole (PROTONIX) 40 MG tablet 2016-05-30 17:03:46 Ye s 40mg QD Take 40 mg by mouth daily. [facility] clopidogrel (PLAVIX) 75 mg tablet 2016-05-30 17:02:35 Yes 75mg QD Take 75 mg by mouth daily. [facility] cloNIDine HCl (CATAPRES) 0.1 MG tablet 2016-05-30 17:02:35 Yes .1mg Take 0.1 mg by mouth as needed. [facility] Ondansetron (Zofran Odt) 4 Mg TAB.RAPDIS Ondansetron ( Zofran Odt) 4 Mg TAB.RAPDIS 2016-05-22 12:46:00 Yes 4 Q4-6H Prn [facility] Pantoprazole Sodium (Protonix) 40 Mg TABLET.DR Garza azole Sodium (Protonix) 40 Mg TABLET. 2016-05-22 12:46:00 Yes 40 Daily [facility] Metronidazole (Flagyl) 500 Mg TABLET Metronidazole (Flagyl) 500 Mg TABLET 2016-05-22 12:46:00 2019-08-31 00:00:00 No 500 Three Times A Day [facility] Tylenol 2016-04-13 21:09:00 Yes Notes: Max acetaminophen = 4000mg/day (4 gm/day). (Same as: Tylenol) [facility] Acetaminophen 300 MG / Codeine Phosphate 30 MG Oral Tablet [Tylenol with Codeine #3] 2016-04-13 21:06:00 No 1 - 2 tab, PO, Q4H, PRN Pain, X 2 day, # 20 tab, 0 Refill(s) [facility] atorvastatin 40 mg oral tablet 2016-04-13 21:06:00 Yes 80 mg = 2 tab, PO, Bedtime, # 60 tab, 0 Refill(s) [facility] Morphine 2016-04-12 23:07:00 No Not es: (Same as:MORPhine Sulfate) [facility] pantoprazole 2016-04-12 22:30:00 No Notes: Tablet should not be chewed or crushed. (Same as: Protonix) [facility] Morphine 2016-04-12 18:11:00 No Not es: (Same as:MORPhine Sulfate) [facility] atorvastatin 2016-04-12 17:21:00 No Notes: (Same as: Lipitor) [facility] metoprolol tartrate 2016-04-12 15:00:00 No Notes: (Same as: Toprol XL) May split tab, but do not crush. [facility] [place] Lisinopril 2016-04-12 15:00:00 No Notes: (Same as: Prinivil, Zestril) [facility] Plavix 2016-04-12 15:00:00 No Notes: (Same As: Plavix) [facility] Norvasc 2016-04-12 15:00:00 No Notes: (Same as: Norvasc) [facility] Saline Flush 0.9% 2016-04-12 15:00:00 No Notes: (Same as: BD Posiflush) [facility] heparin 2016-04-12 14:00:00 No Notes: porci ne heparin [facility] Sucralfate 100 MG/ML Oral Suspension [Carafate] [...] Hydrocodone Bitartrate 5 MG Oral Tabl et [Purdys 5/325] 2016-04-12 10:39:00 No Notes: (Same as: Purdys 325/5) Do not exceed 4gm/day of acetaminophen. Jacob Jodie nn Ativan 2016-04-12 10:15:00 No Notes: (Same as: Ativan) Jacob Herediaann Morphine 2016-04-12 10:14:00 No Not es: (Same as:MORPhine Sulfate) [facility] [place] 24 HR tramadol hydrochloride 100 MG Extended [...] Nitrostat) "Do Not Crush" Sublingual tablet [facility] Ativan 2016-04-12 07:56:00 No 0.5 mg, Route: IVP, Drug form: INJ, ONCE, Dosing Weight 72.727, kg, Priority: STAT, Start date: 04/12/16 1:56:00 INSULATOR TESTER, Stop date: 04/12/16 1:56:00 INSULATOR TESTER [facility] orial Temo Morphine 2016-04-12 04:34:00 No Not es: (Same as:MORPhine Sulfate) Jacob Plascencia Nitroglycerin 2016-04-12 04:31:00 No Notes: (Same as:Nitroquick, Nitrostat) "Do Not Crush" Sublingual tablet [facility] Temo Famotidine 2016-04-12 03:47:00 No Notes: (Same as: Pepcid) Can be dilute in 5-10cc NS IVP: Slow IV push over at least 2 minutes. [facility] Saline Flush 0.9% 2016-04-12 03:47:00 No Notes: Same as: BD Posiflush Sterile [facility] Acetaminophen 300 MG / Codeine Phosphate 30 MG Oral Tablet [Tylenol with Codeine #3] 2016-03-27 16:39:00 Yes 1 - 2 tab, PO, Q4H, PRN Pain, X 3 day, # 20 tab, 0 Refill(s) [facility] Clindamycin 300 MG Oral Capsule [Cleocin] 2016-03-27 16:38:00 Yes 300 mg = 1 cap, PO, QID, X 10 day, # 40 cap, 0 Refill(s) [facility] Temo Dilaudid 2016-03-27 16:29:00 No 0.5 mg, 0.5 mL, Route: IM, Drug form: INJ, ONCE, Dosing Weight 72.727, kg, Priority: STAT, Start date: 03/27/16 10:29:00 INSULATOR TESTER, Stop date: 03/27/16 10:29:[address] [facility] Acetaminophen 325 MG / Hydrocodone Bitartrate 10 MG Or al Tablet [Purdys 10/325] 2016-03-27 16:26:00 No 1 ta b, Route: PO, Drug Form: TAB, Dosing Weight 72.727, kg, ONCE, STAT, Start date: 03/27/16 10:26:00 INSULATOR TESTER, Stop date: 03/27/16 10:26:[address] [facility] Clindamycin 2016-03-27 16:25:00 No Notes: (clindamycin [...] May split tab, but do not crush. [facility] Lisinopril 2014-12-08 22:00:00 No Notes: (Same as: Prinivil, Zestril) [facility] pantoprazole 2014-12-08 21:30:00 No Notes: Tablet should not be chewed or crushed. (Same as: Protonix) Saleem Plascencia Sucralfate 100 MG/ML Oral Suspension [Carafate] 2014-12-08 18:00 :00 No Notes: Enteral feeds may int erfere with the absorption of this medication. Shake well. Take 1 hr before or 2 hrs after antacids, dairy pdt, minerals & meals. (Same As: Carafate) [facility] oneal Erythromycin 250 MG Enteric Coated Tablet 2014-12-08 17:00:00 No Notes: (Same as: Brenton-Tab) Give With Food "Do Not Crush" [facility] [place] Sucralfate 100 MG/ML Oral Suspension [Carafate] 2014-12-08 16:49 :00 Yes 1 gm = 10 ml, PO, QID-Before Meals, # 1200 mL, 0 Refil l(s) [facility] tramadol hydrochloride 50 MG Oral Tablet 2014-12-08 16:49:00 Yes 50 mg = 1 tab, PO, Q6H, PRN Pain, # 30 tab, 0 Refill(s) [facility] Temo Aspirin 325 MG Oral Tablet 2014-12-08 16:39:00 No Notes: Take with food. [facility] [place] Hyoscyamine 2014-12-08 16:30:00 No Notes: (Same as: Levsin) Take 30 min before meal [facility] Valium 2014-12-08 16:16:00 No Notes: (Same as: Valium) [facility] Clonidine Hydrochloride 0.1 MG Oral Tablet 2014-12-08 16:16:00 No Notes: (Same As: Catapres) [facility] carlos Diazepam 10 MG Oral Tablet [Valium] 2014-12-08 09:35:00 Yes 10 mg = 1 tab, PO, TID, PRN Anxiety, 0 Refill(s) [facility] Temazepam 30 MG Oral Capsule [Restoril] 2014-12-08 09:35:00 Yes 30 mg = 1 cap, PO, Bedtime, PRN Sleep, 0 Refill(s) [facility] clopidogrel 75 MG Oral Tablet [Plavix] 2014-12-08 09:35:00 Yes 75 mg = 1 tab, PO, Daily, # 30 tab, 0 Refill(s) [facility] tramadol hydrochloride 50 MG Oral Tablet 2014-12-08 09:35:00 No 50 mg = 1 tab, PO, Q6H, PRN Pain, 0 Refill(s) [facility] promethazine 25 mg oral tablet 2014-12-08 09:35:00 Yes 25 mg = 1 tab, PO, Q4H, PRN Nausea/Vomiting, 0 Refill(s) [facility] pantoprazole 40 mg oral enteric coated tablet 2014-12-08 09:35:0 0 Yes 40 mg = 1 tab, PO, Before Dinner, 0 Refill(s) [facility] metoprolol 50 mg oral tablet, extended release 2014-12-08 09:35: 00 Yes 50 mg = 1 tab, PO, BID, 0 Refill(s) [facility] lisinopril 20 mg oral tablet 2014-12-08 09:35:00 Yes 20 mg = 1 tab, PO, BID, # 60 tab, 0 Refill(s) [facility] levothyroxine 200 mcg (0.2 mg) oral tablet 2014-12-08 09:35:00 Yes 200 microgram = 1 tab, PO, Daily, # 30 tab, 0 Refill(s) [facility] hyoscyamine 0.125 mg sublingual tablet 2014-12-08 09:35:00 Yes 0.125 mg = 1 tab, SL, Before Meals & Bedtime, 0 Refill(s) [facility] erythromycin 250 mg oral delayed release capsule 2014-12-08 09:35:00 Yes 250 mg = 1 cap, PO, Q6H, # 40 cap, 0 Refill(s) [facility] Temo Clonidine Hydrochloride 0.1 MG Oral Tablet 2014-12-08 09:35:00 Yes 0.1 mg = 1 tab, PO, TID, PRN Hypertension, 0 Refill(s) [facility] Aspirin 325 MG Oral Tablet 2014-12-08 09:35:00 Yes 325 mg = 1 tab, PO, Daily, # 30 tab, 0 Refill(s) Amrit Plascencia Phenergan 2014-12-08 09:10:00 No Notes: Do not give IV push. (Same as: Phenergan) [facility] Morphine 2014-12-08 09:07:00 No Not es: (Same as:MORPhine Sulfate) [facility] Sodium Chloride 0.154 MEQ/ML Injectable Solution 2014-12-08 09:0 7:00 No 1,000 mL, Rate: 125 ml/hr, I nfuse over: 8 hr, Route: IV, Dosing Weight 81.818 kg, Total Volume: 1,000, Start date: 12/08/14 4:07:00, Duration: 30 day, Stop date: 01/07/15 4:06:00 [facility] Her oneal Saline Flush 0.9% 2014-12-08 09:07:00 No Notes: (Same as: BD Posiflush) [facility] nitroglycerin 0.4 mg sublingual tablet 2014-12-08 08:28:00 No Notes: (Same as:Nitroquick, Nitrostat) "Do Not Crush" Sublingual tablet [facility] atropine 2014-12-08 08:28:00 No 0.5 mg, 5 mL, Route: IVP, Drug form: INJ, PRN, PRN Bradycardia, Start date: 12/08/14 3:28:00, Duration: 30 day, Stop date: 01/07/15 3:27:00 [facility] [place] Furosemide 20 MG Oral Tablet [Lasix] 2014-12-08 07:57:00 No 20 mg = 1 tab, PO, Daily, 0 Refill(s) [facility] Johnathan mejia Labetalol 2014-12-08 06:13:00 No Notes: (Same as: Normodyne, Trandate) Push over 2 minutes Give bolus over 2-[address] [facility] Nitroglycerin 0.4 MG Sublingual Tablet [Nitrostat] 06:01:00 No Notes: (Same as:Nitroquick, Nitr ostat) "Do Not Crush" [facility] 2014-[facility] 05:34:00 No 12.5 mg, Route: IVPB, ONCE, Dosing Weight 77.273, kg, Priority: STAT, Start date: 12/08/14 0:34:00, Stop date: 12/08/14 0:34:00 [facility] Morphine 2014-12-08 05:34:00 No 4 mg, Route: IVP, Drug form: INJ, ONCE, Dosing Weight 77.273, kg, Priority: STAT, Start date: 12/08/14 0:34:00, Stop date: 12/08/14 0:34:00 [facility] 2014-12-08 05:26:00 No 4 mg, Route: IVP, Drug form: INJ, ONCE, Dosing Weight 77.273, kg, Priority: STAT, Start date: 12/08/14 0:26:00, Stop date: 12/08/14 0:26:00 [facility] 2014-12-08 05:25:00 No 12.5 mg, Route: IVPB, ONCE, Dosing Weight 77.273, kg, Priority: STAT, Start date: 12/08/14 0:25:00, Stop date: 12/08/14 0:25:00 [facility] Bentyl 2014-12-08 04:41:00 No 20 mg, Route: PO, ONCE, Dosing Weight 77.273, kg, Start date: 12/07/14 23:41:00, Stop date: 12/07/14 23:41:00 [facility] Morphine 2014-12-08 03:35:00 No 4 mg, Route: IVP, Drug form: INJ, ONCE, Dosing Weight 77.273, kg, Priority: STAT, Start date: 12/07/14 22:35:00, Stop date: 12/07/14 22:35:00 [facility] GI cocktail 2014-12-08 01:59:00 No Notes: G.I. Cocktail = antacid with simethicone 22.5 mL - lidocaine viscous 7.[address] [facility] Morphine 2014-12-08 01:58:00 No 4 mg, Route: IVP, Drug form: INJ, ONCE, Dosing Weight 77.273, kg, Priority: STAT, Start date: 12/07/14 20:58:00, Stop date: 12/07/14 20:58:00 [facility] Royer kidd Protonix 2014-12-08 01:58:00 No 40 mg, Route: IVP, ONCE, Dosing Weight 77.273, kg, Priority: STAT, Start date: 12/07/14 20:58:00, Stop date: 12/07/14 20:58:00 [facility] Temo Clonidine 2014-12-08 00:49:00 No 0.1 mg, Route: PO, Drug form: TAB, ONCE, Dosing Weight 77.273, kg, Priority: STAT, Start date: 12/07/14 19:49:00, Stop date: 12/07/14 19:49:00 [facility] 2014-12-08 00:49:00 No 12.5 mg, Route: IVPB, ONCE, Dosing Weight 77.273, kg, Priority: STAT, Start date: 12/07/14 19:49:00, Stop date: 12/07/14 19:49:00 [facility] Sodium Chloride 0.154 MEQ/ML Injectable Solution 2014-12-08 00:4 8:00 No 1,000 mL, 1,000 ml/hr, Infus e Over: 1 hr, Route: IV, ONCE, Priority: STAT, Dosing Weight 77.273 kg, Start date: 12/07/14 19:48:00, Duration: 1 doses or times, Stop date: 12/07/14 19:48:00 Navarro guzmán [place] metoprolol tartrate 50 mg oral tablet 2014-12-01 21:20:58 Y es 50 mg = 1 tab, PO, Q12H, # 120 tab, 0 Refill(s) [facility] lisinopril 20 mg oral tablet 2014-12-01 21:20:56 Yes 20 mg = 1 tab, PO, BID, # 60 tab, 0 Refill(s) [facility] clopidogrel 75 MG Oral Tablet [Plavix] 2014-12-01 21:20:47 Yes 75 mg = 1 tab, PO, Daily, # 30 tab, 0 Refill(s) [facility] Aspirin 325 MG Oral Tablet 2014-12-01 21:20:16 [...] 23:24 :00 No Notes: (Same as: Atarax) [facility] Ethylsuccinate 40 MG/ML Oral Suspension 11-29 22:00:00 No Notes: (Same as: E.E.S.-400) [facility] Hydroxyzine 2014-11-29 21:45:00 No Notes: (Same as: Vistaril) Avoid alcohol. [facility] Tylenol 2014-11-28 16:53:00 No Notes: Do not exceed 4 gm/day. (Same as: Tylenol) [facility] Dilaudid 2014-11-28 16:53:00 No 1 mg, 1 mL, Route: IV, Drug form: INJ, Q4H, Dosing Weight 81.818, kg, PRN Pain Score 7-10, Start date: 11/28/14 11:53:00, Duration: 30 day, Stop date: 12/28/14 11:52:00 [facility] Levsin 2014-11-28 02:00:00 No Notes: (Same as: Levsin) Take 30 min before meal [facility] Protonix 2014-11-26 21:30:00 No Notes: Tablet should not be chewed or crushed. (Same as: Protonix) [facility] Levsin 2014-11-26 14:34:00 No Notes: (Same as: Levsin) Take 30 min before meal [facility] Sodium Chloride 0.154 MEQ/ML Injectable Solution 2014-11-26 13:1 5:00 No 500 mL, Rate: 25 ml/hr, Infu se over: 20 hr, Route: IV, Dosing Weight 81.818 kg, Total Volume: 500, Start date: 11/26/14 8:15:00, Duration: 1 day, Stop date: 11/27/14 8:14:00 [facility] Dilaudid 2014-11-25 22:51:00 No 1 mg, 1 mL, Route: IVP, Drug form: INJ, ONCE, Dosing Weight 81.818, kg, Priority: STAT, Start date: 11/25/14 17:51:00, Stop date: 11/25/14 17:51:00 [place] [facility] Plavix 2014-11-25 14:00:00 No Notes: (Same As: Plavix) [facility] Aspirin 325 MG Oral Tablet 2014-11-25 14:00:00 No Notes: Take with food. [facility] Thyroxine 2014-11-25 11:30:00 No Notes: Take 1 hour before or 2 hours after meal; Enteral feeds may interefere with the absorption of this medication. (Same as: Levothroid) Srikanth Plascencia Famotidine 20 MG Oral Tablet 2014-11-25 02:00:00 No Notes: (Same as: Pepcid) [facility] Restoril 2014-11-25 02:00:00 No Notes: (Alexandro e As: Restoril) [facility] metoprolol tartrate 2014-11-25 02:00:00 No Notes: (Same as: Lopressor) [facility] Lisinopril 2014-11-25 02:00:00 No Notes: (Same as: Prinivil, Zestril) [facility] Lipitor 2014-11-25 02:00:00 No Notes: (Same as: Lipitor) [facility] Dilaudid 2014 22:16:00 No 0.5 mg, 0.5 mL, Route: IV, Drug form: INJ, Q3H, Dosing Weight 81.818, kg, PRN Pain Score 7-10, Start date: 11/24/14 17:16:00, Duration: 30 day, Stop date: 12/24/14 17:15:00 [facility] Acetaminophen 325 MG / Hydrocodone Bitartrate 10 MG Or al Tablet [Purdys 10/325] 2014 22:13:00 No Note s: Do not exceed 4gm/day of acetaminophen. (Same as: Purdys 325/10) [facility] Valium 2014 22:12:00 No Notes: (Same as: Valium) [facility] Phenergan 2014 06:07:00 No Notes: Do not give IV push. (Same as: Phenergan) [facility] Saline Flush 0.9% 2014 02:00:00 No Notes: (Same as: BD Posiflush) [facility] Dilaudid 2014-11-23 23:49:00 No 0.5 mg, 0.5 mL, Route: IV, Drug form: INJ, Q4H, Dosing Weight 81.818, kg, PRN Pain Score 7-10, Start date: 11/23/14 18:49:00, Duration: 30 day, Stop date: 12/23/14 18:48:00 [facility] Phenergan 2014-11-23 23:49:00 No Notes: (Sa me as: Phenergan) [facility] Magnesium Sulfate 2014-11-23 23:46:00 No 2 gm, 50 mL, Route: IVPB, Drug form: INJ, ONCE, Dosing Weight 81.818, kg, Total dose = 2 gm, Start date: 11/23/14 18:46:00, Duration: 1 doses or times, Stop date: 11/23/14 18:46:00 [facility] normal saline 0.9% IV 1,000 mL 2014-11-23 23:39:00 No 1,000 mL, Rate: 80 ml/hr, Infuse over: 12.5 hr, Route: IV, Dosing Weight 81.818 kg, Total Volume: 1,000, Start date: 11/23/14 18:39:00, Stop date: 12/23/14 18:38:00 [facility] nitroglycerin 0.4 mg sublingual tablet 2014-11-23 23:37:00 No Notes: (Same as:Nitroquick, Nitrostat) "Do Not Crush" Sublingual tablet [facility] atropine 2014-11-23 23:36:00 No 0.5 mg, 5 mL, Route: IVP, Drug form: INJ, PRN, PRN Bradycardia, Start date: 11/23/14 18:36:00, Duration: 30 day, Stop date: 12/23/14 18:35:00 [facility] Pepcid 2014-11-23 23:21:00 No Notes: (Same as: Pepcid) Can be dilute in 5-10cc NS IVP: Slow IV push over at least 2 minutes. [facility] Dilaudid 2014-11-23 22:57:00 No 1 mg, Route: IVP, ONCE, Dosing Weight 81.818, kg, Priority: STAT, Start date: 11/23/14 17:57:00, Stop date: 11/23/14 17:57:00 [facility] Benadryl 2014-11-23 22:56:00 No 25 mg, Route: IVP, ONCE, Dosing Weight 81.818, kg, PRN Allergic reaction, Start date: 11/23/14 17:56:00 [facility] Reglan 2014-11-23 22:55:00 No 10 mg, Route: IVP, ONCE, Dosing Weight 81.818, kg, Start date: 11/23/14 17:55:00, Stop date: 11/23/14 17:55:00 [facility] Clonidine Hydrochloride 0.1 MG Oral Tablet 2014-11-23 22:42:[address] [facility] Droperidol 2014-11-23 22:42:00 No 0.625 mg, Route: IVP, ONCE, Dosing Weight 81.818, kg, PRN Nausea, Start date: 11/23/14 17:42:00, Stop date: 12/23/14 17:41:00 [facility] Saline Flush 0.9% 2014-11-23 22:17:00 No Notes: (Same as: BD Posiflush) [facility] Morphine 2014-11-23 22:17:00 No Not es: (Same as:MORPhine Sulfate) [facility] Nitroglycerin 2014-11-23 22:17:00 No Notes: (Same as:Nitroquick, Nitrostat) "Do Not Crush" Sublingual tablet [facility] Morphine 2014-11-23 20:34:00 No Not es: (Same as:MORPhine Sulfate) [facility] Clonidine Hydrochloride 0.1 MG Oral Tablet 2014-11-23 20:33:00 No Notes: (Same As: Catapres) [facility] Labetalol 2014-11-23 20:33:00 No Notes: (Same as: Normodyne, Trandate) Push over 2 minutes Give bolus over 2-[address] [facility] Ativan 2014-11-23 19:33:00 No 1 mg, Route: PO, Drug form: TAB, ONCE, Dosing Weight 81.818, kg, Priority: STAT, Start date: 11/23/14 14:33:00, Stop date: 11/23/14 14:33:00 [facility] Nitroglycerin 2014-11-23 18:20:00 No Notes: (Same as:Nitroquick, Nitrostat) "Do Not Crush" Sublingual tablet [facility] Morphine 2014-11-23 18:13:00 No 4 mg, Route: IVP, Drug form: INJ, ONCE, Dosing Weight 81.818, kg, Priority: STAT, Start date: 11/23/14 13:13:00, Stop date: 11/23/14 13:13:00 [facility] Saline Flush 0.9% 2014-11-23 17:33:00 No Notes: (Same as: BD Posiflush) [facility] multivitamin with minerals 2014-09-19 14:00:00 No Notes: (Same as:Thera-M, Theragran-M) Give with food. [facility] Thyroxine 2014-09-19 14:00:00 No Notes: Take 1 hour before or 2 hours after meal; Enteral feeds may interefere with the absorption of this medication.(Same as:Levothroid, Synthroid) [facility] Aspirin 325 MG Oral Tablet 2014-09-19 14:00:00 No 325 mg, Route: PO, Drug form: TAB, Daily, Dosing Weight 79.545, kg, Start date: 09/19/14 9:00:00, Duration: 30 day, Stop date: 10/18/14 9:00:00 [facility] Plavix 2014-09-19 14:00:00 No 75 mg, Route: PO, Drug form: TAB, Daily, Dosing Weight 79.545, kg, Start date: 09/19/14 9:00:00, Duration: 30 day, Stop date: 10/18/14 9:00:00 [facility] potassium chloride 2014-09-19 14:00:00 No 80 mEq, Route: PO, Daily, Dosing Weight 79.545, kg, Start date: 09/19/14 9:00:00, Duration: 30 day, Stop date: 10/18/14 9:00:00 [facility] metoprolol tartrate 2014-09-19 02:00:00 No 50 mg, Route: PO, Drug form: TAB, Q12H, Dosing Weight 79.545, kg, Start date: 09/18/14 21:00:00, Duration: 30 day, Stop date: 10/18/14 9:00:00 [facility] Lipitor 2014-09-19 02:00:00 No 80 mg, [...] exceed 4gm/day of acetamino phen. (Same as: Purdys 325/10) [facility] Hydralazine Hydrochloride 10 MG Oral Tablet 2014-09-18 17:19:00 No Notes: (Same as: Apresoline) May interfere w/enteral feedings. Take With Food Jacob Plascencia Acetaminophen 325 MG / Hydrocodone Bitartrate 10 MG Or al Tablet [Purdys 10/325] 2014-09-18 17:17:00 No Note s: Do not exceed 4gm/day of acetaminophen. (Same as: Purdys 325/10) [facility] metoprolol tartrate 50 mg oral tablet 2014-09-18 16:56:00 Y es 50 mg = 1 tab, PO, Q12H, # 120 tab, 0 Refill(s) [facility] clopidogrel 75 MG Oral Tablet [Plavix] 2014-09-18 16:56:00 Yes 75 mg = 1 tab, PO, Daily, # 30 tab, 0 Refill(s) [facility] atorvastatin 80 MG Oral Tablet [Lipitor] 2014-09-18 16:56:00 Yes 80 mg = 1 tab, PO, Bedtime, # 30 tab, 0 Refill(s) [facility] lisinopril 20 mg oral tablet 2014-09-18 16:56:00 Yes 20 mg = 1 tab, PO, BID, # 60 tab, 0 Refill(s) [facility] Aspirin 325 MG Oral Tablet 2014-09-18 16:56:00 Yes 325 mg, PO, Daily, # 30 tab, 0 Refill(s) [facility] Hydralazine Hydrochloride 10 MG Oral Tablet 2014-09-18 16:56:00 Yes 160 mmHg, # 120 tab, 0 Refill(s) [facility] Saline Flush 0.9% 2014-09-18 14:00:00 No Notes: (Same as: BD Posiflush) [facility] Valium 2014-09-18 12:54:00 No Notes: (Same as: Valium) [facility] metoprolol tartrate 2014-09-18 12:54:00 No Notes: (Same as: Lopressor) [facility] Lisinopril 2014-09-18 12:54:00 No Notes: (Same as: Prinivil, Zestril) [facility] clopidogrel 75 MG Oral Tablet [Plavix] 2014-09-18 12:42:00 No 75 mg = 1 tab, PO, Daily [facility] lisinopril 20 mg oral tablet 2014-09-18 12:42:00 No 20 mg = 1 tab, PO, BID, 0 Refill(s) [facility] Temazepam 30 MG Oral Capsule [Restoril] 2014-09-18 12:42:00 Yes 30 mg = 1 cap, PO, Bedtime [facility] Diazepam 10 MG Oral Tablet [Valium] 2014-09-18 12:42:00 Yes 10 mg = 1 tab, PO, TID, PRN Anxiety [facility] metoprolol tartrate 50 mg oral tablet 2014-09-18 12:42:00 N o 50 mg = 1 tab, PO, Q12H [facility] levothyroxine 200 mcg (0.2 mg) oral tablet 2014-09-18 12:42:00 Yes 200 microgram = 1 tab, PO, Daily, # [address] [facility] Aspirin 2014-09-18 12:42:00 No 325 mg, PO, Daily, 0 Refill(s) [facility] Adults 2014-09-18 12:42:00 Yes 1 tab, PO, Daily, 0 Refill(s) [facility] atorvastatin 80 MG Oral Tablet [Lipitor] 2014-09-18 12:42:00 No 80 mg = 1 tab, PO, Bedtime [facility] Acetaminophen 325 MG / Hydrocodone Bitartrate 10 MG Or al Tablet [Purdys 10/325] 2014-09-18 12:42:00 Yes 1-2 tab, PO, Q4-6H , PRN Pain [facility] potassium chloride 2014-09-18 12:42:00 Yes 8 0 mEq, PO, Daily [facility] Phenergan 2014-09-18 11:35:00 No Notes: Do not give IV push. (Same as: Phenergan) [facility] Metoprolol 2014-09-18 10:09:00 No 5 mg, Route: IV, ONCE, Dosing Weight 79.545, kg, Start date: 09/18/14 5:09:00, Stop date: 09/18/14 5:09:00 [facility] Morphine 2014-09-18 10:08:00 No 4 mg, Route: IVP, ONCE, Dosing Weight 79.545, kg, Start date: 09/18/14 5:08:00, Stop date: 09/18/14 5:08:00 [facility] Saline Flush 0.9% 2014-09-18 08:20:00 No Notes: (Same as: BD Posiflush) [facility] Nitroglycerin 2014-09-18 08:20:00 No Notes: (Same as:Nitroquick, Nitrostat) "Do Not Crush" Sublingual tablet [facility] Aspirin 325 MG Oral Tablet 2014-09-18 08:20:00 No Notes: Take with food. [facility] Ativan 2014-09-18 07:14:00 No 0.5 mg, Route: IVP, Drug form: INJ, ONCE, Dosing Weight 79.545, kg, PRN Anxiety, Start date: 09/18/14 2:14:00 [facility] Nitroglycerin 0.02 MG/MG Topical Ointment 2014-09-18 05:22:00 No 0.5 inch, Route: TOP, Dosing Weight 79.545, kg, ONCE, Start date: 09/18/14 0:22:00, Stop date: 09/18/14 0:22:00 [facility] Aspirin 325 MG Oral Tablet 2014-09-18 05:10:00 No 325 mg, Route: PO, Drug form: TAB, ONCE, Dosing Weight 79.545, kg, Priority: STAT, Start date: 09/18/14 0:10:00, Stop date: 09/18/14 0:10:00 [facility] Alprazolam (Xanax) 0.5 Mg TABLET Alprazolam (Xanax) 0.5 Mg TABLET Yes .5 As Needed [facility] Clonazepam Clonazepam Yes 2 Three Times A Day [facility] Clopidogrel Bisulfate (Plavix) 75 Mg TABLET Clopidogre l Bisulfate (Plavix) 75 Mg TABLET Yes 1 Daily [facility] Levothyroxine Sodium (Synthroid) 50 Mcg TAB Levothyrox ine Sodium (Synthroid) 50 Mcg TAB Yes 200 Today At 6:30AM [facility] Levothyroxine Sodium Levothyroxine Sodium Yes 175 Daily [facility] Lisinopril Lisinopril Yes 10 Twice A Day [facility] Oxycodone Hcl Oxycodone Hcl Yes 10 Thre e Times A Day [facility] Temazepam (Restoril) 30 Mg CAPSULE Temazepam (Restoril) 30 Mg CAPSULE Yes 30 Bedtime [facility] Atorvastatin Calcium (Lipitor) 20 Mg TABLET Atorvastat in Calcium (Lipitor) 20 Mg TABLET 2019-09-06 00:00:00 No 20 80 [facility] Metoprolol Succinate (Toprol Xl) 50 Mg TAB.SR.24H Meto prolol Succinate (Toprol Xl) 50 Mg TAB.SR.24H 2019-09-06 00:00:00 No 1 Ally ly [facility] Potassium Chloride Potassium Chloride 2019-08-31 00:00:00 No 20 Daily [facility] Tramadol Hcl (Ultram) 50 Mg TABLET Tramadol Hcl (Ultram) 50 Mg T ABLET 2019-08-31 00:00:00 No 50 As Needed as needed for Pain [facility] Vital Signs Vital Name Observation Time Observation Value Comments Source Body Temperature 2019-09-29 11:32:00 97.3 [degF] [facility] Weight 2019-09-28 01:34:00 139.06 [lb_av] [facility] BMI (Body Mass Index) 2019-09-28 01:34:00 24.6 kg/m2 [facility] Heart Rate 2016-04-13 20:51:00 [facility] Temperature Oral (F) 2016-04-13 20:51:00 98.7 F [facility] Systolic (mm Hg) 2016-04-13 20:51:00 [facility] Diastolic (mm Hg) 2016-04-13 20:51:00 [facility] Respitory Rate 2016-04-13 20:51:00 [facility] Systolic (mm Hg) 2016-04-13 16:42:00 [facility] Diastolic (mm Hg) 2016-04-13 16:42:00 [facility] Temperature Oral (F) 2016-04-13 16:42:00 98.7 F [facility] Respitory Rate 2016-04-13 16:42:00 [facility] Heart Rate 2016-04-13 16:42:00 [facility] Weight 2016-04-13 14:56:00 [facility] Height 2016-04-13 14:56:00 177.8 cm [facility] BMI Calculated 2016-04-13 14:56:00 [facility] Systolic (mm Hg) 2016-04-13 13:37:00 [facility] Diastolic (mm Hg) 2016-04-13 13:37:00 [facility] Temperature Oral (F) 2016-04-13 13:37:00 98.0 F [facility] Heart Rate 2016-04-13 13:37:00 [facility] Respitory Rate 2016-04-13 13:37:00 [facility] Weight 2016-04-12 09:59:00 [facility] BMI Calculated 2016-04-12 09:59:00 [facility] Height 2016-04-12 09:59:00 177.8 cm [facility] Height 2016-04-12 03:37:00 160.02 cm [facility] BMI Calculated 2016-04-12 03:37:00 [facility] Weight 2016-04-12 03:37:00 [facility] Weight 2016-03-31 16:29:00 [facility] Height 2016-03-31 16:29:00 160.02 cm [facility] Systolic (mm Hg) 2016-03-31 16:29:00 [facility] Diastolic (mm Hg) 2016-03-31 16:29:00 [facility] Temperature Oral (F) 2016-03-31 16:29:00 97.9 F [facility] Respitory Rate 2016-03-31 16:29:00 [facility] Heart Rate 2016-03-31 16:29:00 [facility] BMI Calculated 2016-03-31 16:29:00 [facility] Temperature Oral (F) 2016-03-27 17:24:00 98.2 F [facility] Respitory Rate 2016-03-27 17:24:00 [facility] Heart Rate 2016-03-27 17:24:00 [facility] Systolic (mm Hg) 2016-03-27 17:24:00 [facility] Diastolic (mm Hg) 2016-03-27 17:24:00 [facility] Weight 2016-03-27 16:04:00 [facility] BMI Calculated 2016-03-27 16:04:00 [facility] Height 2016-03-27 16:04:00 160.02 cm [facility] Respitory Rate 2016-03-27 16:04:00 [facility] Heart Rate 2016-03-27 16:04:00 [facility] Systolic (mm Hg) 2016-03-27 16:04:00 [facility] Diastolic (mm Hg) 2016-03-27 16:04:00 [facility] Temperature Oral (F) 2016-03-27 16:04:00 98.3 F [facility] Respitory Rate 2014-12-08 17:05:00 [facility] Systolic (mm Hg) 2014-12-08 17:05:00 [facility] Diastolic (mm Hg) 2014-12-08 17:05:00 [facility] Weight 2014-12-08 15:32:00 [facility] Systolic (mm Hg) 2014-12-08 13:00:00 [facility] Diastolic (mm Hg) 2014-12-08 13:00:00 [facility] Respitory Rate 2014-12-08 13:00:00 [facility] Temperature Oral (F) 2014-12-08 13:00:00 97.4 F [facility] Heart Rate 2014-12-08 13:00:00 [facility] Height 2014-12-08 08:51:00 160.02 cm [facility] Weight 2014-12-08 08:51:00 [facility] BMI Calculated 2014-12-08 08:51:00 [facility] Temperature Oral (F) 2014-12-08 08:10:00 97.5 F [facility] Heart Rate 2014-12-08 08:10:00 [facility] Systolic (mm Hg) 2014-12-08 08:10:00 [facility] Diastolic (mm Hg) 2014-12-08 08:10:00 [facility] Respitory Rate 2014-12-08 08:10:00 [facility] Temperature Oral (F) 2014-12-08 07:24:00 97.7 F [facility] Weight 2014-12-07 22:35:00 [facility] BMI Calculated 2014-12-07 22:35:00 [facility] Height 2014-12-07 22:35:00 160.02 cm [facility] Heart Rate 2014-12-07 22:35:00 [facility] Temperature Oral (F) 2014-12-01 19:57:00 97.9 F [facility] Respitory Rate 2014-12-01 19:57:00 [facility] Systolic (mm Hg) 2014-12-01 19:57:00 [facility] Diastolic (mm Hg) 2014-12-01 19:57:00 [facility] Heart Rate 2014-12-01 19:57:00 [facility] Systolic (mm Hg) 2014-12-01 18:20:00 [facility] Diastolic (mm Hg) 2014-12-01 18:20:00 [facility] Respitory Rate 2014-12-01 16:55:00 [facility] Systolic (mm Hg) 2014-12-01 16:55:00 [facility] [...] [facility] Height 2014-11-23 17:05:00 160.02 cm [facility] Weight 2014-11-23 17:05:00 [facility] BMI Calculated 2014-11-23 17:05:00 [facility] Heart Rate 2014-09-18 17:03:00 [facility] Systolic (mm Hg) 2014-09-18 17:03:00 [facility] Diastolic (mm Hg) 2014-09-18 17:03:00 [facility] Temperature Oral (F) 2014-09-18 17:03:00 97.9 F [facility] Respitory Rate 2014-09-18 17:03:00 [facility] Weight 2014-09-18 13:04:00 [facility] Height 2014-09-18 13:04:00 160.02 cm [facility] BMI Calculated 2014-09-18 13:04:00 [facility] Heart Rate 2014-09-18 12:49:00 [facility] Respitory Rate 2014-09-18 12:49:00 [facility] Systolic (mm Hg) 2014-09-18 12:49:00 [facility] Diastolic (mm Hg) 2014-09-18 12:49:00 [facility] Temperature Oral (F) 2014-09-18 12:49:00 98.3 F [facility] Temperature Oral (F) 2014-09-18 10:00:00 98.0 F [facility] Systolic (mm Hg) 2014-09-18 10:00:00 [facility] Diastolic (mm Hg) 2014-09-18 10:00:00 [facility] Heart Rate 2014-09-18 10:00:00 [facility] Respitory Rate 2014-09-18 10:00:00 [facility] Height 2014-09-18 00:22:00 160.02 cm [facility] BMI Calculated 2014-09-18 00:22:00 [facility] Weight 2014-09-18 00:22:00 [facility] Procedures Procedure Date / Time Performed Performing Clinician Leticia adams CT of abdomen and pelvis without contrast 2019-09-19 00:00:00 [facility] Computed tomography of abdomen and pelvis with contrast 00:00:00 [facility] Hysterectomy [facility] Procedure on back [facility] CABG x 1 - Coronary artery bypass graft x 1<sup>1</sup> [facility] Stent placement [facility]ole[facility] Plan of Care Planned Activity Planned Date Details Comments Source Instructions Abdominal Pain - Pediatric [facility] Instructions Chest Pain - Chest Wall [facility] Instructions Hypertension [facility] Instructions Vomiting - Adult [facility] Encounters Start Date/Time End Date/Time Encounter Type Admission Type Attendi [facility] Care Department Encounter ID Source 2016-04-11 21:28:00 2016-04-13 15:42:00 Outpatient Christiano Ceja [facility] [id number] 2016-03-31 10:12:00 2016-03-31 11:17:00 Outpatient Rosa Lam [facility] [id number] 2016-03-27 10:03:00 2016-03-27 11:20:00 Outpatient Lokesh Felix [facility] [id number] 2014-12-07 17:27:00 2014-12-08 13:00:00 Outpatient Luis Lyles [facility] [id number] 2014-11-23 11:54:00 2014-12-01 17:10:00 Outpatient Chevy Callaway [facility] MHSE [id number] 2014-09-17 18:40:00 2014-09-18 12:15:00 Outpatient Ruddy Guadarrama [facility] MHIE [id number] Results Test Description Test Time Test Comments Results Result Comments Source CHEST SINGLE (PORTABLE) 2019-11-20 13:31:00 [facility] [address] [place] [id number] Patient Name: TRINITY FERNANDEZ MR #: [id number] : 1960 Age/Sex: 58/F Req #: [id number] Adm Physician: Ordered by: SAM HASTINGS MD Report #: [id number] Location: ER Room/Bed: Procedure: [id number] DX/CHEST SINGLE (PORTABLE) Exam Date: 11/20/19 Exam [...] ABDOMEN ACUTE SERIES W/PA CXR 2019-10-04 15:06:00 [place] [address] Patient Name: TRINITY FERNANDEZ MR #: [id number] : 1960 Age/Sex: 58/F Req #: [id number] Adm Physician: Ordered by: SAM HASTINGS MD Report #: [id number] Location: ER Room/Bed: Procedure: [id number] DX/ABDOMEN ACUTE SERIES W/PA CXR Exam Date: [...] 3:08 PM Dictated By: MARIA VALLE MD 1500 Transcribed By: JOVANY on 10/04/198 COPY TO: [...] per LPF NONE-FEW Urine Source? Clean CatchURINALYSIS [id number] 00:39:00* Test Item Value Reference Range Interpretation [...] Urine Source? Clean Catch- CT ABD PELVIS [id number] 18:45:00 Name: TRINITY FERNANDEZ [facility] : 1961 Age/S: 57 / F [address] [facility] Unit #: [id number] Loc: [place] [address] Phys: Carrie Jeter MD Acct: [id number] Di s Date: Status: REG ER PHONE #: [phone] Exam Date: 10/03/20191815 FAX #: Reason: abd pain, swollen labia EXAMS: CPT CODE: [id number] CT ABD PELVIS W/CONT 39182 REASON FOR EXAM: abd pain , swollen [...] 1 Signed Report (CONTINUED) Name: TRINITY FERNANDEZ [facility] [place] : 1961 Age/S: 57 / F [address] Unit #: [id number] Loc: [facility] 775 04 Phys: Carrie Jeter MD Acct: [id number] Dis Date: Status: REG ER PHONE #: [phone] Exam Date: 10/03/20191815 FAX #: [phone] Reason: abd pain, swollen labia EXAMS: CPT CO DE: [id number] CT ABD PELVIS W/CONT 99684 <Continued> Musculoskeletal structures and abdominal wall: The [...] developing abscess within the laparotomy incision. Location: [facility] at 1845 Reported and signed by: Dylan Gupta MD CC: Carrie Jeter MD Technologist:Selin Salmeron RT(R); SHIRIN Goldman CTDI: DLP: Trnscb Date/Time: 10/03/2019 (1844) [email or web address] Orig Print D/T: S: 10/03/2019 (1847) PAGE 2 Signed Report BASIC METABOLIC [id number] 16:35:00* Test Item Value Reference Range Interpretation [...] CA) 9.1 mg/dL 8.5-10.1 N HEPATIC FUNCTION [id number] 16:35:00* Test Item Value Reference Range Interpretation [...] reference range due to change in reagent. [id number] 16:35:00* Test Item Value Reference Range Interpretation Comments LIPASE (test code = LIP) 51 U/L 73.0-393.0 L HCG SERUM [id number] 16:35:00* Test Item Value Reference Range Interpretation Comments HCG SERUM QUAL (test code = HCGQL) NEGATIVE NEGATIVE This HCGQL test is NOT applicable for MALE patients.Check with nurse about probable order error.If Tumor Marker Test needed, nurse should order test "HCGTU"(Test #550.19263) [id number]-[id number] 16:35:00* Test Item Value Reference Range Interpretation Comments TROPONIN-I (test code = TROPI) <0.015 ng/mL 0-0.045 N PROTHROMBIN [id number] 16:33:00* Test Item Value Reference Range Interpretation [...] (2.5-3.5) IS PATIENT ON ANTICOAGULANTS? NTHROMBOPLASTIN TIME [id number] 16:33:00* Test Item Value Reference Range Interpretation Comments THROMBOPLASTIN TIME PARTIAL (test code = PTT) 30.9 seconds 23.0-37. 0 N IS PATIENT ON ANTICOAGULANTS? NBASIC METABOLIC [id number] 16:25:00* Test Item Value Reference Range Interpretation [...] code = CA) mg/dL 8.5-10.1 HEPATIC FUNCTION UKESG0185-41-61 16:25:00* Test Item Value Reference Range Interpretation [...] TOTAL (test code = ALKP) IUnit/L 45-117 [id number] 16:25:00* Test Item Value Reference Range Interpretation Comments LIPASE (test code = LIP) U/L 73.0-393.0 HCG SERUM [id number] 16:25:00* Test Item Value Reference Range Interpretation Comments HCG SERUM QUAL (test code = HCGQL) NEGATIVE NEGATIVE This HCGQL test is NOT applicable for MALE patients.Check with nurse about probable order error.If Tumor Marker Test needed, nurse should order test "HCGTU"(Test #550.93431) [id number] 16:25:00* Test Item Value Reference Range Interpretation Comments TROPONIN-I (test code = TROPI) ng/mL 0-0.045 BASIC METABOLIC [id number] 16:24:00* Test Item Value Reference Range Interpretation [...] code = CA) mg/dL 8.5-10.1 HEPATIC FUNCTION [id number] 16:24:00* Test Item Value Reference Range Interpretation [...] TOTAL (test code = ALKP) IUnit/L 45-117 [id number] 16:24:00* Test Item Value Reference Range Interpretation Comments LIPASE (test code = LIP) U/L 73.0-393.0 HCG SERUM [id number] 16:24:00* Test Item Value Reference Range Interpretation Comments HCG SERUM QUAL (test code = HCGQL) NEGATIVE [id number]-[id number] 16:24:00* Test Item Value Reference Range Interpretation Comments TROPONIN-I (test code = TROPI) ng/mL 0-0.045 CBC W/O [id number] 16:22:00* Test Item Value Reference Range Interpretation [...] 8.9 fL 6.7-11.0 N ABDOMEN-1VIEW (KUB)2019-09-28 14:28:00 [place] [address] Patient Name: TRINITY FERNANDEZ MR #: [id number] : 1960 Age/Sex: 58/F Req #: [id number] Adm Physician: ANTELMO HEART MD Ordered by: MAURO SOLIS MD Report #: [id number] Location: MED/SURG3 Room/Bed: [facility] Procedure: [id number] DX/ABDOMEN-1VIEW (KUB) Exam Date: 09/28/19 Exam Time: [...] Level (test code = 2823-3) 4.2 3.5-5.1 [facility] Hospital[facility]osph[facility] ndnseapihlz3866-52-69 10:33:00 * Test Item Value Reference Range Interpretation Comments Phosphorus Level (test code = QCE8125) 2.4 2.3-4.7 [facility]2019-09-26 22:13:00 [place] [address] Patient Name: TRINITY FERNANDEZ MR #: [id number] : 1960 Age/Sex: 58/F Req #: [id number] Adm Physician: ANTELMO HEART MD Ordered by: SOFI BAIG MD Report #: [id number] Location: [facility]/SURG Room/Bed: [facility] Procedure: [id number] DX/ABDOMEN-1VIEW ([facility]) Exam Date: 09/26/19 Exam Time: 2129 REPORT [...] Count (test code = 6690-2) 8.00 4.8-10.8 [facility] HospitalBlood erythrocytes automated count (number/volume)2019-09-26 20:58:00* Test Item Value Reference Range Interpretation Comments Red Blood Count (test code = 789-8) 3.82 3.6-5.1 [facility] HospitalBlood hemoglobin measurement (moles/volume)2019-09-26 20:58:00* Test Item Value Reference Range Interpretation Comments Hemoglobin (test code = 55221-3) 12.1 12.0-16.0 [facility] HospitalAutomated blood hematocrit (volume fraction)2019-09-26 20:58:00* Test Item Value Reference Range Interpretation Comments Hematocrit (test code = 4544-3) 34.5 34.2-44.1 [facility] HospitalAutomated erythrocyte mean corpuscular hidhum3789-08-36 20:58:00* Test Item Value Reference Range Interpretation Comments Mean Corpuscular Volume (test code = 787-2) 90.3 81-99 [facility] HospitalAutomated erythrocyte mean corpuscular hemoglobin (mass per erythrocyte)2019-09-26 20:58:00* Test Item Value Reference Range Interpretation Comments Mean Corpuscular Hemoglobin (test code = 785-6) 31.7 28-32 [facility] HospitalAutomated erythrocyte mean corpuscular hemoglobin concentration measurement (mass/volume)2019-09-26 20:58:00* Test Item Value Reference Range Interpretation Comments Mean Corpuscular Hemoglobin Concent (test code = 786-4) 35.1 31-35 [facility] HospitalRDW XjkNg-Nvc2417-05-23 20:58:00* Test Item Value Reference Range Interpretation Comments Red Cell Distribution Width (test code = 55444-8) 12.8 11.7 -14.4 [facility] HospitalAutomated blood platelet count (count/volume)2019-09-26 20:58:00* Test Item Value Reference Range Interpretation Comments Platelet Count (test code = 777-3) 278 140-360 [facility] HospitalAutunc [facility] blood segmented neutrophil count as percentage of total bqnbnvhtxs6205-93-62 20:58:00* Test Item Value Reference Range Interpretation Comments Neutrophils (%) (Auto) (test code = 61221-3) 68.1 38.7-80.0 [facility] HospitalAutomated blood lymphocyte count as percentage ot total ubltqfjkvm1445-67-20 20:58:00* Test Item Value Reference Range Interpretation Comments Lymphocytes (%) (Auto) (test code = 736-9) 13.5 18.0-39.1 [facility] HospitalAutomated blood monocyte count as percentage of total ghjaratzjo2378-29-85 20:58:00* Test Item Value Reference Range Interpretation Comments Monocytes (%) (Auto) (test code = 5905-5) 15.9 4.4-11.3 [facility] HospitalAutomated blood eosinophil count as percentage of total pqaiabxatr0687-97-30 20:58:00* Test Item Value Reference Range Interpretation Comments Eosinophils (%) (Auto) (test code = 713-8) 1.1 0.0-6.0 [facility] HospitalAutomated blood basophil count as percentage of total iunijecral9631-81-73 20:58:00* Test Item Value Reference Range Interpretation Comments Basophils (%) (Auto) (test code = 706-2) 0.4 0.0-1.0 [facility] HospitalFluoroscopic procedure less than one hour lujhcgqb5768-45-89 20:58:00* Test Item Value Reference Range Interpretation Comments IM GRANULOCYTES % (test code = IM GRANULOCYTES %) 1.0 0.0- 1.0 [facility] HospitalAutomated blood neutrophil count 2019-09-26 20:58:00* Test Item Value Reference Range Interpretation Comments Neutrophils # (Auto) (test code = 751-8) 5.5 2.1-6.9 [facility] HospitalBlood lymphocytes count (number/volume) 2019-09-26 20:58:00* Test Item Value Reference Range Interpretation Comments Lymphocytes # (Auto) (test code = 94136-5) 1.1 1.0-3.2 [facility] HospitalBlood monocytes automated count (number/volume)2019-09-26 20:58:00* Test Item Value Reference Range Interpretation Comments Monocytes # (Auto) (test code = 742-7) 1.3 0.2-0.8 [facility] HospitalAutomated blood eosinophil count 2019-09-26 20:58:00* Test Item Value Reference Range Interpretation Comments Eosinophils # (Auto) (test code = 711-2) 0.1 0.0-0.4 [facility] HospitalAutomated blood basophil count (count/volume)2019-09-26 20:58:00* Test Item Value Reference Range Interpretation Comments Basophils # (Auto) (test code = 704-7) 0.0 0.0-0.1 [facility] HospitalFluoroscopic procedure less than one hour nfumfqsg4685-99-16 20:58:00* Test Item Value Reference Range Interpretation Comments Absolute Immature Granulocyte (auto (lam t code = Absolute Immature Granulocyte (auto) 0.08 0-0.1 [facility] plasma sodium measurement (moles/volume)2019-09-26 20:58:00* Test Item Value Reference Range Interpretation Comments Sodium Level (test code = 2951-2) 136 136-145 [facility] or plasma chloride measurement (moles/volume)2019-09-26 20:58:00* Test Item Value Reference Range Interpretation Comments Chloride Level (test code = 2075-0) 102 98-107 [facility] or plasma carbon dioxide, total measurement (moles/volume)2019-09-26 20:58:00* Test Item Value Reference Range Interpretation Comments Carbon Dioxide Level (test code = 2028-9) 23 22-29 [facility] or plasma anion sxs0468-66-52 20:58:00* Test Item Value Reference Range Interpretation Comments Anion Gap (test code = 24330-2) 15.1 8-16 [facility] or plasma urea nitrogen measurement (mass/volume)2019-09-26 20:58:00* Test Item Value Reference Range Interpretation Comments Blood Urea Nitrogen (test code = 3094-0) 5 7-26 [facility] or plasma creatinine measurement (mass/volume)2019-09-26 20:58:00* Test Item Value Reference Range Interpretation Comments Creatinine (test code = 2160-0) 0.61 0.57-1.11 [facility] or plasma urea nitrogen/creatinine mass amipk1612-69-14 20:58:00* Test Item Value Reference Range Interpretation Comments BUN/Creatinine Ratio (test code = 3097-3) 8 6-25 [facility] HospitalEstimated glomerular filtration rate (GFR) rzbrbtlgywgtk1618-56-47 20:58:00* Test Item Value Reference Range Interpretation Comments Estimat Glomerular Filtration Rate (test code = 377209657) > 60 >60 Ranges were taken from the National Kidney Disease Education Program and the [employer] literature.Reference ranges:60 or greater: Rfiiwb71-68 ( for 3 consecutive months): Chronic kidney disease 15 or less: Kidney failureLegent Orthopedic HospitalGlucose hpcmhuomqbn1733-42-57 20:58:00* Test Item Value Reference Range Interpretation Comments Glucose Level (test code = GUS6645) 127 74-118 [facility] or plasma calcium measurement (mass/volume)2019-09-26 20:58:00* Test Item Value Reference Range Interpretation Comments Calcium Level (test code = 38554-9) 8.6 8.4-10.2 [facility] or plasma magnesium measurement (mass/volume)2019-09-26 20:58:00* Test Item Value Reference Range Interpretation Comments Magnesium Level (test code = 45199-1) 1.5 1.3-2.1 [facility] or plasma thyroxine (T4) free measurement (mass/volume)2019-09-24 18:45:00* Test Item Value Reference Range Interpretation Comments Free Thyroxine (test code = 3024-7) 1.62 0.8-1.8 [facility] or plasma thyrotropin measurement by detection limit <= 0.005 miu/l (units/volume)2019-09-24 18:45:00* Test Item Value Reference Range Interpretation Comments Thyroid Stimulating Hormone (TSH) (test code = 83765-1) 0.409 0.350-4.940 [facility] HospitalABDOMEN-1VIEW ([facility])2019-09-24 10:09:00 [facility] [address] [place] [address] Patient Name: TRINITY FERNANDEZ MR #: [id number] : 1960 Age/Sex: 58/F Req #: [id number] Adm Physician: ANTELMO HEART MD Ordered by: MAURO SOLIS MD Repor t #: [id number] Location: MED/SURG3 Room/Bed : [facility] Procedure: [id number] DX/ABDOMEN-1VIEW (KUB) Exam Date: 09/24/19 Exam Time: [...] MD Fluoroscopic procedure less than one hour svapaejo3411-58-19 08:01:00* Test Item Value Reference Range Interpretation [...] complexity tests.Testing performed by [facility] [address] [place], [place] [phone] Director: Clyde Araujo M.D.CLIA # [id number] [facility]CT [facility]IS FI9401-04-28 15:22:00 [facility] [address] [place] [address] Patient Name: TRINITY FERNANDEZ MR #: [id number] : 1960 Age/Sex: 58/F Req #: [id number] Adm Physician: ANTELMO HEART MD Ordered by: MAURO SOLIS MD Report #: [id number] Location: MED/SURG3 Room/Bed: [facility] Procedure: [id number] CT/CT ABDOMEN/PE LVIS WO Exam Date: 09/19/19 [...] Bilirubin (test code = 1975-2) 0.6 0.2-1.2 [facility] HospitalFluoroscopic procedure less than one hour vpxnxgek1104-72-59 05:56:00* Test Item Value Reference Range Interpretation Comments Aspartate Amino Transf (AST/SGOT) (test code = Aspartate Amino Transf (AST/SGOT)) 26 5-34 [facility] or plasma alanine aminotransferase measurement (enzymatic activity/volume)2019-09-18 05:56:00* Test Item Value Reference Range Interpretation Comments Alanine Aminotransferase (ALT/SGPT) (test code = 1742-6) 23 0-55 [facility] or plasma protein measurement (mass/volume)2019-09-18 05:56:00* Test Item Value Reference Range Interpretation Comments Total Protein (test code = 2885-2) 5.9 6.5-8.1 [facility] or plasma albumin measurement (mass/volume)2019-09-18 05:56:00* Test Item Value Reference Range Interpretation Comments Albumin (test code = 1751-7) 3.3 3.5-5.0 [facility] HospitalPlasma globulin measurement (mass/volume) 2019-09-18 05:56:00* Test Item Value Reference Range Interpretation Comments Globulin (test code = 09318-9) 2.6 2.3-3.5 [facility] or plasma albumin/globulin mass knazx3648-59-57 05:56:00* Test Item Value Reference Range Interpretation Comments Albumin/Globulin Ratio (test code = 1759-0) 1.3 0.8-2.0 [facility] or plasma alkaline phosphatase measurement (enzymatic activity/volume)2019-09-18 05:56:00* Test Item Value Reference Range Interpretation Comments Alkaline Phosphatase (test code = 6768-6) 66 40-150 [facility] or plasma cancer antigen 19-9 measurement (units/volume)2019-09-18 05:56:00* Test Item Value Reference Range Interpretation Comments CA 19-9 Antigen (test code = 47845-9) 25 0-35 [facility] Electrochemiluminescence Immunoassay(ECLIA)Values obtained wit h different assay methods or kits cannotbe used interchangeably. Results cannot be interpreted asabsolute evidence of the presence or absence of malignantdisea se.Performed at: - [address] [id number]Lab Director: Josey Vazquez MD, Phone: [phone] Orthopedic HospitalCHES XRAY LINE BGNRGBRVP0944-06-53 15:24:00 [place] [address] Patient Name: TRINITY FERNANDEZ MR #: [id number] : 1960 Age/Sex: 58/F Req #: [id number] Adm Physician: ANTELMO HEART MD Ordered by: MIRTA HART MD Report #: [id number] Location: MED/SURG3 Room/Bed: [facility] Procedure: [id number] DX/CHEST XRAY LI NE PLACEMENT Exam Date: [...] 1525 Transcribed By: JOVANY on 09/13/19 1525 CRM MARKETING MANAGER Y TO: MIRTA HART MD ABDOMEN-1VIEW (KUB)2019-09-11 07:13:00 [place] [address] Patient Name: TRINITY FERNANDEZ MR #: [id number] : 1960 Age/Sex: 58/F Req #: [id number] Adm Physician: ANTELMO HEART MD Ordered by: MAURO SOLIS MD Report #: [id number] Location: MED/SURG3 Room/Bed: [facility] Procedure: [id number] DX/ABDOMEN-1VIEW (KUB) Exam Date: 09/11/19 Exam Time: [...] TO: MAURO SOLIS MD ABDOMEN-1VIEW (KUB)2019-09-09 14:44:00 [place] [address] Patient Name: TRINITY FERNANDEZ MR #: [id number] : 1960 Age/Sex: 58/F Req #: [id number] Adm Physician: ANTELMO HEART MD Ordered by: MAURO SOLIS MD Report #: [id number] Location: MED/SURG3 Room/Bed: [facility]- Procedure: [id number] DX/ABDOMEN-1VIEW ([facility]) Exam Date: 09/09/19 Exam Time: 1422 REPORT STATUS: Signed EXAM: ABDOMEN-1VIE W ([facility]) DATE: 09/09/2019 2:22 PM INDICATION: Abdominal distention. [...] COPY TO: MAURO SOLIS MD ABDOMEN 2 UXWZ0178-11-82 11:05:00 [place] [address] Patient Name: TRINITY FERNANDEZ MR #: [id number] : 1960 Age/Sex: 58/F Req #: [id number] Adm Physician: ANTELMO HEART MD Ordered by: MAURO FAUSTIN MD Report #: [id number] Location: MED/SURG3 Room/Bed: [facility] Procedure: [id number] DX/ABDOMEN 2 EW Exam Date: 09/07/19 Exam [...] Interpretation Comments Platelet Estimate (test code = 01496-7) ADEQUATE [facility] HospitalPlatelet cgiiqavkqp3328-74-34 13:05:00* Test Item Value Reference Range Interpretation Comments Platelet Morphology Comment (test code = 09191-0) FEW GIANT [facility] HospitalBlood hypochromia detection by light zpzzizhpnr8747-77-55 13:05:00* Test Item Value Reference Range Interpretation Comments Hypochromasia (test code = 728-6) SLIGHT [facility] HospitalBlood poikilocytosis detection by light cyurrpefnp0003-05-70 13:05:00* Test Item Value Reference Range Interpretation Comments Poikilocytosis (test code = 779-9) [facility] by light vnrvjqfoxe8392-76-79 13:05:00* Test Item Value Reference Range Interpretation Comments Anisocytosis (test code = 702-1) [facility] HospitalRBC kyoiasrmdt9028-09-50 13:05:00* Test Item Value Reference Range Interpretation Comments Red Cell Morphology Comment (test code = 6742-1) [facility] D0466-19-42 09:39:00 [facility] [address] [place] [address] Patient Name: TRINITY FERNANDEZ MR #: [id number] : 1960 Age/Sex: 58/F Req #: [id number] Adm Physician: ANTELMO HEART MD Ordered by: ANTELMO HEART MD Repor t #: [id number] Location: [facility]/SURG3 Room/Bed : [facility] Procedure: [id number] CT/CT ABDOMEN/PE LVIS W Exam Date: 09/02/19 [...] limits set by the Radiation Protocol Com [facility] (RP). FINDINGS: Examination somewhat limited by [...] surgical changes of appendectomy. Small hiatal her mari aesther. PELVIC ORGANS/BLADDER: Status post hysterectomy. LYMPH NODES: [...] (test code = 2157-6) 61 29-168 [facility] or plasma creatine kinase MB measurement (mass/volume)2019-09-01 16:19:00* Test Item Value Reference Range Interpretation Comments Creatine Kinase MB (test code = 13095-0) 1.70 0-5.0 [facility] HospitalTroponin I measurement by highly sensitive enzyme auweobkvazx8314-20-39 16:19:00* Test Item Value Reference Range Interpretation Comments Troponin I (test code = 38765-0) < 0.001 0-0.300 [facility] HospitalFree thyroxine tgjfu9225-34-10 05:45:00* Test Item Value Reference Range Interpretation Comments Free Thyroxine Index (test code = 61959-4) 0.9630 1.4-3.8 [facility] or plasma thyroxine (T4) measurement (mass/volume)2019-09-01 05:45:00* Test Item Value Reference Range Interpretation Comments Thyroxine (T4) (test code = 3026-2) 2.67 4.5-10.9 Our current method for Total T4 is not recommended for use as the only marker fo r evaluating patients for thyroid disorders.[facility] or plasma triiodothyronine resin uptake (T3RU)2019-09-01 05:45:00* Test Item Value Reference Range Interpretation Comments Triiodothyronine (T3) Uptake (test code = 3050-2) 36.07 22.5 -37.0 [facility] HospitalUrine color ggjjcdaukxciu8364-67-97 21:45:00* Test Item Value Reference Range Interpretation Comments Urine Color (test code = 5778-6) YELLOW YELLOW [facility] HospitalUrine atekprl0419-81-64 21:45:00* Test Item Value Reference Range Interpretation Comments Urine Clarity (test code = 18528-1) SL CLOUDY CLEAR [facility] gravity of Urine by Test strip 2019-08-31 21:45:00* Test Item Value Reference Range Interpretation Comments Urine Specific [place] (test code = 5811-5) 1.025 1.010-1.02 5 [facility] HospitalUrine pH measurement by automated test rdgpb1174-44-43 21:45:00* Test Item Value Reference Range Interpretation Comments Urine pH (test code = 95041-0) 7.5 5-7 [facility] HospitalUrine leukocyte esterase detection by drjsjgil5818-05-86 21:45:00* Test Item Value Reference Range Interpretation Comments Urine Leukocyte Esterase (test code = 5799-2) TRACE NEGATIVE [facility] HospitalUrine nitrite jtkognqpy7873-82-30 21:45:00* Test Item Value Reference Range Interpretation Comments Urine Nitrite (test code = 79473-4) NEGATIVE NEGATIVE [facility] HospitalUrine protein measurement by test strip (mass/volume)2019-08-31 21:45:00* Test Item Value Reference Range Interpretation Comments Urine Protein (test code = 5804-0) NEGATIVE NEGATIVE [facility] HospitalUrine glucose stozilknp5639-82-28 21:45:00* Test Item Value Reference Range Interpretation Comments Urine Glucose (UA) (test code = 2349-9) 1+ NEGATIVE [facility] HospitalUrine ketones detection by automated test jjhhf5335-45-43 21:45:00* Test Item Value Reference Range Interpretation Comments Urine Ketones (test code = 62127-3) NEGATIVE NEGATIVE [facility] HospitalUrine urobilinogen measurement by test strip (mass/volume)2019-08-31 21:45:00* Test Item Value Reference Range Interpretation Comments Urine Urobilinogen (test code = 14702-7) 0.2 0.2-1 [facility] HospitalUrine total bilirubin measurement (mass/volume)2019-08-31 21:45:00* Test Item Value Reference Range Interpretation Comments Urine Bilirubin (test code = 1978-6) NEGATIVE NEGATIVE [facility] HospitalUrine erythrocytes cwboxihju0264-23-02 21:45:00* Test Item Value Reference Range Interpretation Comments Urine Blood (test code = 21917-2) NEGATIVE NEGATIVE [facility] HospitalAutomated urine sediment leukocyte count by microscopy (number/high power field)2019-08-31 21:45:00* Test Item Value Reference Range Interpretation Comments Urine WBC (test code = 5821-4) 0-5 0-5 [facility] HospitalErythrocytes detection in urine sediment by light pyujcwhotm3470-28-81 21:45:00* Test Item Value Reference Range Interpretation Comments Urine RBC (test code = 03413-3) NONE 0-5 [facility] HospitalBacteria detection in urine sediment by light sasnsjkopf3308-83-88 21:45:00* Test Item Value Reference Range Interpretation Comments Urine Bacteria (test code = 83406-0) FEW NONE [facility] HospitalEpithelial cells detection in urine sediment by light mvpxnxukga1669-58-45 21:45:00* Test Item Value Reference Range Interpretation Comments Urine Epithelial Cells (test code = 61623-0) MODERATE NONE [facility] HospitalCHEST SINGLE (PORTABLE)2019-08-31 13:16:00 [facility] [address] [place] [address] Patient Name: TRINITY FERNANDEZ MR #: [id number] : 1960 Age/Sex: 58/F Req #: [id number] Adm Physician: Ordered by: SAM HASTINGS MD Report #: [id number] Location: ER Room/Bed: Procedure: [id number] DX/CHEST SINGL E (PORTABLE) Exam Date: 08/31/19 [...] (PT) in platelet poor plasma by coagulation kccix9885-53-07 12:34:00* Test Item Value Reference Range Interpretation Comments Prothrombin Time (test code = 5902-2) 12.0 11.9-14.5 [facility] HospitalINR in Platelet poor plasma by Coagulation umecv9217-71-39 12:34:00* Test Item Value Reference Range Interpretation Comments Prothromb Time International Ratio (test code = 6301-6) 0.84 Oral Anticoagulant Therapy INR Values:1. Low Intensity Therapy 1.5 - 2.02 . Moderate Intensity Therapy 2.0 - 3.03. High Intensity Therapy(1) 2.5 - 3. 54. High Intensity Therapy(2) 3.0 - 4.05. Panic Value INR > 5.0 [facility] HospitalActivated partial thromboplastin time (aPTT) in platelet poor plasma by coagulation ecozb3640-17-10 12:34:00* Test Item Value Reference Range Interpretation Comments Activated Partial Thromboplast Time (test code = 03010-0) 28.3 23.8-35.5 [facility] or plasma triglyceride measurement (mass/volume)2019-08-31 12:34:00* Test Item Value Reference Range Interpretation Comments Triglycerides Level (test code = 2571-8) 114 0-149 [facility] or plasma cholesterol measurement (mass/volume)2019-08-31 12:34:00* Test Item Value Reference Range Interpretation Comments Cholesterol Level (test code = 2093-3) 247 0-199 Less than 200 mg/dL Low Mzhi298 - 239 mg/dL Borderline Dgzs274 m g/dl and greater High Risk [facility] or plasma cholesterol in LDL measurement (mass/volume) 2019-08-31 12:34:00* Test Item Value Reference Range Interpretation Comments LDL Cholesterol (test code = 2089-1) 160 60-130 [facility] plasma cholesterol in HDL measurement (mass/volume)2019-08-31 12:34:00* Test Item Value Reference Range Interpretation Comments HDL Cholesterol (test code = 2085-9) 64 40-60 [facility] or plasma total cholesterol/cholesterol in HDL mass vlvia7605-37-64 12:34:00* Test Item Value Reference Range Interpretation Comments Cholesterol/HDL Ratio (test code = 9830-1) 3.9 3.0-3.6 [facility]-uVyu7677[facility]49-28 12:34:00* Test Item Value Reference Range Interpretation Comments B-Type Natriuretic Peptide (test code = 46564-6) 35.1 0-100 [facility] or plasma lipase measurement (enzymatic activity/volume)2019-08-31 12:34:00* Test Item Value Reference Range Interpretation Comments Lipase (test code = 3040-3) 18 8-78 [facility] BGHUMXL3580-60-77 14:37:00* Test Item Value Reference Range Interpretation Comments CULTURE (BEAKER) (test code = 1095) <10,000 col/mL skin jack GSWX-ODQ8878-28-02 09:28:00* Test Item Value Reference Range Interpretation Comments ACTIVATED CLOTTING TIME (BEAKER) (test code = 441) [address] [facility] [address] [facility] [address] CBC W/PLT COUNT & AUTO JQWHJDWPJHDC4778-44-62 04:56:00* Test Item Value Reference Range Interpretation [...] 0.01 K/ L 0. 00-0.20 0.00BASI METABOLIC UATQV1675-37-10 04:43:00* Test Item Value Reference Range Interpretation [...] IS NOT APPLICABLE FOR DIALYSIS PATIENTS. PROTHROMBIN TIME/[id number] 04:32:00* Test Item Value Reference Range Interpretation Comments PROTIME (BEAKER) (test code = 759) 12.3 seconds 11.7-14.7 INR (BEAKER) (test code = 370) 0.9 <=5.9 RECOMMENDED COUMADIN/WARFARIN INR THERAPY RANGESSTANDARD DOSE: 2.0 - 3.0 Inclu zach: PROPHYLAXIS for venous thrombosis, systemic embolization; TREATMENT for billie ous thrombosis and/or pulmonary embolus.HIGH RISK: Target INR is 2.5-3.5 for pat ients with mechanical heart valves.URINALYSIS W/ TLGGNJLZSKV4292-84-17 11:09:00 * Test Item Value Reference Range [...] Clean Catch CBC W/PLT COUNT & AUTO BUWRXZUONWFI1478-47-91 09:48:00* Test Item Value Reference Range Interpretation [...] (test code = 1678) Present BASIC METABOLIC BIJOO6651-49-68 07:53:00* Test Item Value Reference Range Interpretation [...] DIALYSIS PATIENTS. CBC W/PLT COUNT & AUTO AIBVUYZWMGUF1042-34-09 10:48:00* Test Item Value Reference Range Interpretation [...] (test code = 762) Normal BASIC METABOLIC GTDXJ4938-56-00 06:46:00* Test Item Value Reference Range Interpretation [...] DIALYSIS PATIENTS. CBC W/PLT COUNT & AUTO WDJHSWTXWSNL9439-37-07 09:29:00* Test Item Value Reference Range Interpretation [...] code = 480) 2+ moderate BASIC METABOLIC PPDMH1589-72-99 08:39:00* Test Item Value Reference Range Interpretation [...] IS NOT APPLICABLE FOR DIALYSIS PATIENTS. T4, [id number] 15:06:00* Test Item Value Reference Range Interpretation Comments FREE T4 (BEAKER) (test code = 655) 1.26 ng/dL 0.70-1.48 TSH/FREE T4 IF QITSDRTNK3938-92-87 14:38:00* Test Item Value Reference Range Interpretation Comments THYROID STIMULATING HORMONE (BEAKER) (test code = 772) 0.22 uIU/mL 0.35-4.94 L RPKAUS9593-13-30 14:14:00* Test Item Value Reference Range Interpretation Comments LIPASE (BEAKER) (test code = 749) 11 U/L 8-78 DDCFMPJ1604-33-98 14:14:00* Test Item Value Reference Range Interpretation Comments AMYLASE (BEAKER) (test code = 349) 43 U/L 25-125 HEPATIC FUNCTION UYIRP9865-01-53 14:14:00* Test Item Value Reference Range Interpretation [...] code = 347) 30 U/L 6-55 TROPONIN [id number] 07:12:00* Test Item Value Reference Range Interpretation [...] acute neurological disease, and pers istent tachyarrhythmia.TROPONIN F7178-08-70 01:13:00* Test Item Value Reference Range Interpretation [...] neurological disease, and pers istent tachyarrhythmia.BASIC METABOLIC GAATA1606-73-40 18:25:00* Test Item Value Reference Range Interpretation [...] ESTIMATED GFR. CREATINE KINASE (CK), TOTAL AND [id number] 18:22:00* Test Item Value Reference Range Interpretation Comments CREATINE KINASE TOTAL (VANESA) (test code = 380) 95 U/L 29-20 0 CREATINE KINASE-MB (TYLERAKER) (test code = 750) 1.7 ng/mL 0.0-6.6 CREATINE KINASE-MB INDEX (VANESA) (test code = 395) 1.8 % Effective 02/20/2014: CK-MB Reference Range ChangeNew: 0.0-6.6 Previous: 0.0- 4.9CK-MB Reference Range:<6.7 Normal6.7-10.0 Borderline>10.0 Abnormal TROPONIN [id number] 18:22:00* Test Item Value Reference Range Interpretation [...] (test code = 700) 27 pg/mL 0-100 PT/MBWB0244-03-16 18:05:00* Test Item Value Reference Range Interpretation [...] mechanical heart valves.CBC W/PLT COUNT & AUTO OZOIJJCMACIT3806-43-44 18:00:00* Test Item Value Reference Range Interpretation [...] 417) 0.13 K/ L 0. 00-0.20 0.00CARDIAC ZTXUAKT2053-80-75 17:27:0063[facility] ENZYMES 2016-04-12 17:27:00<0.02[facility] FMNZSPK4121-61-94 06:58:0027 [facility] ARJRYCB1154-80-95 06:58:00<0.02[facility] VWRJDNG2276-76-04 06:58:000.7[facility] IMSJWXV9315-95-29 06:58:00 87[facility]annCARD[facility]AC GLYRURM7984-56-71 06:58:000.8[facility]annCHEM QVOJP0373-64-95 06:58:73199Xlepqjsu HermannCHEM EELLL5040-30-85 06:58:0099 [facility]annCHE[facility] WUXAR7540-95-21 06:58:000.69[facility]annCHEM PANEL 2016-04-12 06:58:31667Zmibizha HermannCHEM YDEZM0516-37-27 06:58:0096[facility]annCHEM FUQHG9393-09-36 06:58:0022[facility]annCHEM KEBBG9014-59-97 06:58:11109Ndksucbb [facility]annCHEM OKZTB9684-48-10 06:58:0087[facility]annCHEM OBRIK5582-58-34 06:58:004.3[facility]annCHEM XPLKV8625-77-16 06:58:0021 [facility]annCHE[facility] EVTEW4317-62-18 06:58:000.4[facility]annCHEM PANEL 2016-04-12 06:58:0022[facility]annCHEM AXGMP7927-94-17 06:58:008.8[facility]annCHEM DHTAL1333-02-87 06:58:006.6[facility]annCHEM HBWNQ0387-84-50 06:58:0032[facility]annCHE[facility] NHHSL6144-47-78 06:58:0012.3[facility]annCHEM OVKIZ0993-17-36 06:58:003.4[facility]annCHEM DZVWD2122-90-16 06:58:000.9 [facility]annCHE[facility] OJONU8768-64-75 06:58:003.2[facility]annCHEM PANEL 2016-04-12 06:58:0024[facility] VijpxfaOFJCKIRUTY1685-92-97 06:58:00* Test Item Value Reference Range Interpretation Comments PT (test code = PT) 12.1 s 12.0-14.7 [facility] DzyajqtCRFTBQMTRU4205-94-51 06:58:000.88[facility]annHEMATOLOGY 2016-04-12 06:58:00* Test Item Value Reference Range Interpretation Comments PTT (test code = PTT) 25.1 s 22.9-35.8 [facility] YvdlvsyKTEOMKOGTO9256-30-67 06:35:27505Tcxachtb [facility]annHEMATOLOGY 2016-04-12 06:35:008.0[facility] DwclxfpNAMPFMVLCY8149-93-29 06:35:0034.0[facility] MogssckQMZRZLXACI6898-86-72 06:35:0014.9[facility] ZozrshnHDLNYXOYNN3739-68-38 06:35:00* Test Item Value Reference Range Interpretation Comments MCH (test code = MCH) 31.9 pg 27.0-31.0 [facility] ThkmtxxWAKENISGDM7385-50-94 06:35:0036.7[facility]annHEMATOLOGY 2016-04-12 06:35:0093.8[facility] GauvajfHDMYCWVVCE3253-54-59 06:35:008.8[facility] RtucktwLFXMHPXYRJ7729-77-56 06:35:0012.5[facility] SbmegzwESXRNSSRUK6218-92-96 06:35:003.92[facility] IzvtaarVSBYEBTHMF2909-78-42 06:35:004.7[facility] JFUIHHWYHX5441-14-52 06:35:000.6[facility] WedtkpsEXWOWEBOXO0356-71-36 06:35:000.3 [facility] NbhbzdhVDIQSHIZLQ9206-16-16 06:35:000.2[facility]annHEMATOLOGY 2016-04-12 06:35:0034.8[facility] GvkaidbHWQBEWPODR9588-88-09 06:35:003.1[facility] SpytskoQZTDODFKLL7056-98-47 06:35:006.9[facility] TsmmrlgTVNYPCWDLK1900-30-16 06:35:001.7[facility] LqjhnbjAFENKEOPFG4758-66-84 06:35:0053.2[facility] SMTCYZZIPA8876-05-97 06:35:003.4[facility]annDRUG FIVPLI5680-00-31 06:13:00 See Note (04/12/16 12:13 AM)[facility]annDR[facility] MQUFMY2408-56-80 06:13:00Negative *NA*(04/12/16 12:13 AM)[facility]annDR[facility] MHSCKK7545-01-32 06:13:00Negative *NA*(04/12/16 12:13 AM)[facility]DR[facility] RRKMOD3398-35-08 06:13:00Negative *NA*(04/12/16 12:13 AM)[facility] MHCOMD0010-23-95 06:13:00Positive *ABN*(04/12/16 12:13 AM)[facility]DR[facility] YPKXYR8557-61-58 06:13:00Positive *ABN*(04/12/16 12:13 AM)[facility]DR[facility] NABBKE7239-52-98 06:13:00Negative *NA*(04/12/16 12:13 AM)[facility]annDR[facility] ZCPZUM1146-61-87 06:13:00Negative *NA*(04/12/16 12:13 AM)[facility] AND ESQAJ0401-19-36 06:13:00Negative *NA*(04/12/16 12:13 AM)[facility] SDLER2066-39-50 06:13:00Negative (04/12/16 12:13 AM)[facility] AND HXOKF2357-90-83 06:13:00Negative (04/12/16 12:13 AM)[facility] AND KSBON0525-12-78 06:13:004[facility] AND UOLME6595-54-70 06:13:00Trace *ABN*(04/12/16 12:13 AM)[facility] AND CQGPN2959-43-95 06:13:002[facility] AND STOOL 2016-04-12 06:13:006.0[facility] AND SUZIE8244-64-77 06:13:001.020 [facility] AND UUPIO2825-10-46 06:13:00Clear (04/12/16 12:13 AM) [facility]annCARDIAC ZGFJXNZ8399-91-50 10:52:0089[facility]annCARDIAC ICQHGMT4945-47-19 10:52:00<0.02[facility]annCARDIAC RBQVAWH8008-24-04 10:52:001.5[facility]annCARDIAC HANBBUI8908-50-93 10:52:001.3[facility] CHEM BKKYW5475-92-14 10:52:0099[facility] HermannCHEM OLNON9712-77-93 10:52:0012 [facility]annCHEM EEQPJ4235-37-83 10:52:000.7[facility]annCHEM PANEL 2014-12-08 10:52:88568Vitolxbp HermannCHEM GRPDH4343-48-17 10:52:79969Vavpnkgn [facility]annCHEM GTNND1442-07-41 10:52:004.0[facility]annCHEM WJEXP5566-98-35 10:52:0021[facility]annCHEM HAXJY3439-01-73 10:52:37977Milvlyig HermannCHEM AKIFS9479-55-43 10:52:008.7[facility]annCHEM YVZXJ8320-05-35 10:52:0013.0 [facility] NnbxhdfJJWHLRJBTG3754-17-14 10:52:39320Wahsnnmb HermannHEMATOLOGY 2014-12-08 10:52:0016.5[facility] KophxpsLOTRDOBBRJ5703-70-18 10:52:007.9[facility] BgzocwaTTOPKFZJWQ3576-89-95 10:52:0038.0[facility] KclnatoSEHNLRFNKG0127-56-49 10:52:0082.9[facility] YxkkxorJWVTCBKNJK2945-42-33 10:52:00* Test Item Value Reference Range Interpretation Comments MCH (test code = MCH) 27.0 pg 27.0-31.0 [facility] FdiyxuxNMJKTYEZJX8438-10-25 10:52:0032.6[facility] HermannHEMATOLOGY 2014-12-08 10:52:006.0[facility] EgsspcnITUWBAFJDS0859-76-34 10:52:004.59[facility] ZdwgtoqCVGPBWTCAL6185-71-36 10:52:0012.4[facility] OaoxqktVCFREGZMQM3361-47-95 10:52:002.5[facility] GtutfykIDTFEPWJCD8828-73-41 10:52:002.5[facility] RTEDZYLPDW3980-86-46 10:52:000.3[facility] SgzegfbSVWQXYAQXM9464-10-73 10:52:000.6 [facility] EeqtafvAJWOTOBEQA1849-39-39 10:52:000.1[facility]annHEMATOLOGY 2014-12-08 10:52:0042.1[facility] EfszmzsZHVCJTTYWH2941-15-17 10:52:0010.5[facility] WtfwdghNUGUFILWFE2573-86-84 10:52:001.1[facility] YimnberWVXRRKVVJE8497-83-39 10:52:004.2[facility] AxnqedhGNNXBEIZVX4364-94-77 10:52:0042.1[facility] ROVENX4540-88-74 10:52:0031[facility] NotvvenYZZSJP1433-48-15 10:52:83495Rzqrvogj MdliugzYLHWUH3046-78-96 10:52:0043[facility] IiccrwiWGXDCS3582-08-15 10:52:61084 [facility] MkbbvxpZLDNXA0743-41-28 10:52:38181Ounkkvur PdlwromBMPMTO7500-70-81 10:52:006.70[facility]annCARDIAC ELIJMBG0140-78-47 02:43:00<0.02[facility]annCHEM BBQKT9265-63-78 02:43:0064[facility]annCARDIAC QSUBOSD5811-67-48 01:57:258[facility]annCARDIAC ADFNCMI1730-01-40 22:48:00<0.02[facility] CARDIAC OXFKYKH3997-64-14 22:48:000.9[facility]annCARDIAC DNLRRLE0653-67-31 22:48:001.1[facility]annCARDIAC VJTQCGS8724-57-26 22:48:54693Nfqsocdl [facility] CHEM JBZAU8047-40-84 22:48:003.6[facility] HermannCHEM AOJHD9970-95-57 22:48:0064 [facility]annCHEM TLRGW9629-15-29 22:48:001.0[facility]annCHEM PANEL 2014-12-07 22:48:009.4[facility]annCHEM XZUHR0663-23-22 22:48:000.9[facility]annCHEM VYDQS1240-42-09 22:48:004.1[facility]annCHEM GNAXV6948-78-19 22:48:007.7[facility]annCHEM RCILQ2085-56-44 22:48:000.5[facility]annCHEM IIJLG4982-48-15 22:48:63639Xhldjxlj HermannCHEM LLYOW2629-00-55 22:48:004.1 [facility]annCHEM WGOZQ0042-13-46 22:48:47126Ipuzignz HermannCHEM PANEL 2014-12-07 22:48:0031[facility] HermannCHEM RDGVR6064-36-94 22:48:0055[facility]annCHEM XPIEQ1032-88-83 22:48:0014[facility]annCHEM IBKAZ4290-26-93 22:48:0014[facility]annCHEM VEPEN8318-41-32 22:48:0097[facility]annCHEM UZLBD3969-55-18 22:48:0012.1[facility]annCHEM IQSGE5788-53-51 22:48:0025 [facility]annCHEM KXWML3884-07-57 22:48:59766Rvsewicn HermannHEMATOLOGY 2014-12-07 22:48:00* Test Item Value Reference Range Interpretation Comments PTT (test code = PTT) 29.0 s 22.9-35.8 [facility] PsxjqwbMHCEHFXIYF5852-35-40 22:48:00* Test Item Value Reference Range Interpretation Comments PT (test code = PT) 13.5 s 12.0-14.7 [facility] AzkgdkuDJUAIUKLDC3841-56-70 22:48:001.00[facility]annHEMATOLOGY 2014-12-07 22:48:003.1[facility] QhkgdbwJRDIXTRPYA3909-47-53 22:48:000.1[facility] MmtpcacGRSEEHEYVV7025-59-50 22:48:000.6[facility] EjkzkxfQTNXQFVVVW1083-84-40 22:48:002.7[facility] GsbnrodIWLVUCECBG4765-71-48 22:48:000.6[facility] JPOCSONCCM0876-29-71 22:48:009.1[facility] VhrubctUCGDBEPTII7302-52-67 22:48:002.2 [facility] IqfyxwqKFPAIKGOMZ8117-05-90 22:48:0041.1[facility]annHEMATOLOGY 2014-12-07 22:48:0047.0[facility] UitdvulVRIHVKXXWK0830-15-05 22:48:008.0[facility] YempaipDAHQGJDAIP5543-58-87 22:48:0032.5[facility] CujsvprEEDGIFGOZF0319-78-67 22:48:0016.5[facility] EjtahypSPLOKHWVXY9833-57-09 22:48:40291Vdmdjlxf [facility] IRQSPWTWPS7757-30-39 22:48:0038.9[facility] YirhpplPBRUJWIZAL3538-94-08 22:48:00 82.8[facility] KxzqowpXMROMPTLLN3463-72-83 22:48:00* Test Item Value Reference Range Interpretation Comments MCH (test code = MCH) 26.9 pg 27.0-31.0 [facility] LsjzhxhMDGSJMNFON6056-78-15 22:48:006.6[facility]annHEMATOLOGY 2014-12-07 22:48:004.70[facility] EkkusixZUXYNEEUCW9552-40-69 22:48:0012.6[facility] NofjtgnWYLHXMPVXEGD1602-31-92 10:15:0013.1[facility] HermannELECTROLYTES 2014-11-30 10:15:18971Fgkkzdwc FdhdmnpUIWTQHSFGZUO0901-64-49 10:15:0018[facility] XzjvtlaNRSBDQNXQRNS3646-11-63 10:15:0024[facility] ChcqytpLOYNJYFEBGKH0425-65-54 10:15:42259Evttwyhc TbvxcuqTPMZONEOTAFA0206-89-64 10:15:96279Wxscxnkz [facility] RUWFLOJSSBJV1462-19-33 10:15:004.1[facility] YyqbhzxODMTDRPTDHMI4933-15-48 10:15:0073[facility] RnwkvxzZBGTEOVQPAEN8582-24-25 10:15:000.9[facility] CVQUFOYXIYZV5225-10-57 10:15:008.6[facility] FjpsmkzZFOFZDDRYF5753-49-76 10:15:00 0.3[facility] BpumjirBHUKXPUUCU1713-70-10 10:15:000.4[facility]annHEMATOLOGY 2014-11-30 10:15:002.9[facility] XcooaovYVEXKWIVLW5463-08-00 10:15:000.6[facility] ZhkahwyULXBXKIWAK2156-14-19 10:15:005.0[facility] TptqvovUQKTKTENAR8208-21-37 10:15:002.0[facility] CqlilwxZONGAIVRFD4896-36-48 10:15:0032.0[facility] PHDWDSOEYY3438-61-24 10:15:0046.7[facility] HzhsxbaKMREIUHSFI4733-15-36 10:15:00 10.2[facility] WqywzpeHMSKBMTCTT1730-62-53 10:15:006.1[facility]annHEMATOLOGY 2014-11-30 10:15:008.0[facility] NalswlyYNZAASVCSB4019-32-90 10:15:0016.1[facility] SosygtcJFUGWTLPKU9616-89-55 10:15:15761Jgenzxgv TausmidMGRXTMZNQG3653-11-06 10:15:00* Test Item Value Reference Range Interpretation Comments MCH (test code = MCH) 28.3 pg 27.0-31.0 [facility] AmauzekRJALCUFOXC4753-26-94 10:15:0033.8[facility]annHEMATOLOGY 2014-11-30 10:15:0083.7[facility] SxxahthAXWZHOOUQS9983-46-91 10:15:0033.9[facility] PisygmfKQXZEJSRSM4446-41-05 10:15:004.05[facility] DtgudjgFKXCOJIYMR3574-59-48 10:15:0011.5[facility] NmlijidUDDCEEOGJJ0503-13-97 10:15:006.1[facility] HermannCHEM AXYFS3077-84-59 09:33:0073[facility]annCHEM IVXRS0768-28-54 09:33:0013 [facility]annCHEM DIBXV3935-61-24 09:33:0026[facility]annCHEM PANEL 2014-11-28 09:33:000.9[facility] HermannCHEM OERQJ7076-45-22 09:33:50257Gnaehmpe HermannCHEM IYZFN1234-74-74 09:33:008.8[facility] HermannCHEM NYKQH5056-12-58 09:33:45842Omzyefhn HermannCHEM WZBHN4929-66-89 09:33:003.7[facility] HermannCHEM NOGPO9158-31-75 09:33:37425Sspcoqkg HermannCHEM PXEIH8379-61-48 09:33:0014.7 [facility]annCHEM KYLRV2915-73-44 09:33:000.3[facility] HermannCHEM PANEL 2014-11-28 09:33:000.4[facility]annCHEM XWJND7906-32-50 09:33:000.1[facility] HermannCHEM NWPPP4919-22-45 09:33:0026[facility]annCHEM YTVMJ8933-72-31 09:33:83760Nlelcbtx HermannCHEM CLRFO5439-90-92 09:33:003.0[facility] HermannCHEM AJEUL0378-84-30 09:33:001.0[facility]annCHEM WQZDY7046-78-46 09:33:005.9 [facility]annCHE[facility] DLKZZ5886-12-00 09:33:002.9[facility]annCHEM PANEL 2014-11-28 09:33:0049[facility] QxjsmhzOEXVAJZYWM3198-19-22 09:33:007.7[facility] KlwgqafNVDTRKCMXR9967-26-93 09:33:0036.5[facility] OmeyjkaOCBQARWHGB3578-34-05 09:33:0012.5[facility] LsjuyvrHLIVTSKKKT3666-28-32 09:33:004.47[facility] AKCXNFRUSF6922-05-79 09:33:38360Llkxsesd PgfegkhYQXTEAZURG0274-18-92 09:33:00 16.0[facility] HsqthzoSKZODLGCAR7176-25-39 09:33:0034.3[facility]annHEMATOLOGY 2014-11-28 09:33:00* Test Item Value Reference Range Interpretation Comments MCH (test code = MCH) 28.0 pg 27.0-31.0 [facility] AmavcfwSKSEWCWMXP6452-83-08 09:33:0081.7[facility]annHEMATOLOGY 2014-11-28 09:33:005.9[facility] QxycrpxZAUGHFGEOW0463-83-91 09:33:0010.2[facility] LnkpdsuGQIAFIHZRB9776-70-23 09:33:0036.4[facility] LixijasNLQDYLEEVX7633-74-99 09:33:0045.5[facility] GaaqmpfSFVKJMHUPI8603-40-22 09:33:000.1[facility] TKDRGWNYYT1985-62-60 09:33:000.3[facility] JaxbzniWHSQZXRXGG6603-41-35 09:33:000.6 [facility] HuukaapTSMMFVMQAK8281-91-87 09:33:002.2[facility]annHEMATOLOGY 2014-11-28 09:33:002.7[facility] PtqbnhkZWKAPFYBVA3806-40-89 09:33:002.5[facility] OaqtdrwFBOXUDPRYO3439-00-45 09:33:005.4[facility] HermannCHEM KAHOJ9239-71-32 08:31:90798Tpxouhlf GpvrfpwULXZRNKPNCUG8563-14-29 08:31:34670Btcnppif [facility] TROPRHJVAWVE2458-42-19 08:31:003.5[facility] HkeytgaQONZSGKSOCPA0136-49-20 08:31:79935Chradfdt GvnpifuDINGLXTWRVZD7668-46-72 08:31:0084[facility] UZWSXHWRAGRR5576-27-77 08:31:003.1[facility] YrwltkmYOBYETQJMBDV5581-01-49 08:31:63012Qrqljtic YkhapimPJQLSHSWULNX3195-82-83 08:31:000.5[facility] OPTJQDRTYXOE2579-49-36 08:31:0095[facility] ZdzppnaWETOLUEURNZJ9941-53-04 08:31:00 63[facility] AxbzmhqKAACTVENYAUU5627-22-33 08:31:0089[facility] HermannELECTROLYTES 2014-11-25 08:31:009[facility] PxfvqppZVGHFFISMUZC5328-02-22 08:31:000.8[facility] LdhelbrTSNJLLRXHRMU6572-91-83 08:31:006.6[facility] VmwvfniXMGABVQBDJMS6833-84-93 08:31:0021[facility] DdybuonIQFNOPGAHOXO4287-48-14 08:31:008.4[facility] VLNYIHFXJUWY0888-83-48 08:31:000.9[facility] YrpmmsyNEXMJDJSKLMF9588-81-66 08:31:0013.5[facility] WgnjixkDFLEEMDSOABQ1252-10-54 08:31:0011[facility] KGBWJHFWIPZI7443-53-70 08:31:003.5[facility] EhxfbukUJIMVPLWGD7427-79-08 08:31:00 5.9[facility] VqyvpmwLUFOSRLOPL8301-81-43 08:31:0082.2[facility] HermannHEMATOLOGY 2014-11-25 08:31:004.42[facility] CvwnmpnLFNGDBZCOZ9056-98-97 08:31:0036.3[facility] RcxisspRGZNZNFVTY6489-78-80 08:31:0012.3[facility] TerwbufGQHKTYUMFH6952-35-72 08:31:007.9[facility] ZpjdoczLWWVXHNYRK6470-79-86 08:31:0033.8[facility] AKDYKLMAQT5492-13-04 08:31:00* Test Item Value Reference Range Interpretation Comments MCH (test code = MCH) 27.8 pg 27.0-31.0 [facility] MjsxntyCDPYGTBIOF5939-06-02 08:31:88572Tqeevwgx HermannHEMATOLOGY 2014-11-25 08:31:0016.0[facility] DfbfmvfHCJORUCSXK6556-27-79 08:31:003.1[facility] InkldhyHSIBORPODH5173-42-45 08:31:001.9[facility] QqcvgvwQINCQEDWIC1389-08-95 08:31:000.3[facility] ExjfseuCCYHVEJXJG3146-73-14 08:31:000.1[facility] IRLEDTRJYT5827-12-86 08:31:000.4[facility] ZdetzxzEZJSAMAACL2473-23-51 08:31:007.1 [facility] FhjuyxpDXWGVNGSOF0724-53-35 08:31:0053.4[facility] HermannHEMATOLOGY 2014-11-25 08:31:002.1[facility] LopgydlMWONZLUNFU8389-07-38 08:31:004.6[facility] VyuxlqxGXQFMXWIJH7279-59-16 08:31:0032.8[facility] HermannCHEM UDRGG4999-97-26 00:47:001.9[facility] HermannCHEM OVQHU2820-81-91 00:47:0050[facility] HermannCHEM IPNZR8119-82-97 00:47:62120Jiisxipi HermannCHEM HCBUV5385-30-78 00:47:003.4 [facility]annCHEM GWWYG3617-20-26 00:47:0012[facility] HermannCHEM PANEL 2014-11-25 00:47:000.9[facility] HermannCHEM RQLYD9294-02-04 00:47:000.6[facility] HermannCHEM NEVXJ4544-24-00 00:47:95315Ppjqkana HermannCHEM OAXXZ7396-15-41 00:47:0083[facility]annCHEM ELLMI5428-13-79 00:47:003.2[facility]annCHEM HVFNO6668-51-49 00:47:73889Btmdilde HermannCHEM QAAZW8173-18-40 00:47:006.6 [facility]UR[facility] AND HNWWT0336-60-56 04:47:001[facility] AND LXCGQ7002-64-35 04:47:00Clear (11/23/14 11:47 PM)[facility] AND STOOL 2014 04:47:001.023[facility] AND HWWSJ0822-29-95 04:47:00Yellow *NA*(11/23/14 11:47 PM)[facility] URGWF7342-94-70 04:47:00 Negative *NA*(11/23/14 11:47 PM)[facility] BZYKK9851-28-12 04:47:005.0[facility] AND YHVLL2238-74-59 04:47:0012[facility] URINE AND BLMRX7040-82-32 04:47:00Trace *ABN*(11/23/14 11:47 PM)[facility] URINE AND IRUXQ6803-61-01 04:47:00Negative (11/23/14 11:47 PM)[facility] URINE AND CCAPQ1506-42-54 04:47:00Negative (11/23/14 11:47 PM)[facility] CARDIAC JCJDSRN5671-42-41 01:15:001.0[facility] HermannCARDIAC TEPWZRA5232-66-64 01:15:000.8[facility] HermannCARDIAC BEDHQRG3024-60-09 01:15:0081[facility] CARDIAC HZCPXTO5836-51-16 01:15:00<0.02[facility] HermannCHEM XGKPZ7424-87-89 01:15:001.0[facility] HermannCHEM XSXHX7920-44-18 01:15:12374Tmmexjnw HermannCHEM VHMGL6096-51-33 01:15:0086[facility] IvvisspJVISJNUCCM2629-13-99 20:06:000.91 [facility] WonelomGQIDFIPABY0204-76-29 20:06:00* Test Item Value Reference Range Interpretation Comments PT (test code = PT) 12.2 s 12.0-14.7 [facility] MvhynohWKVLIUTEJH8789-61-10 20:06:00* Test Item Value Reference Range Interpretation Comments PTT (test code = PTT) 29.7 s 22.9-35.8 [facility]annCARDIAC PZEPUMG7415-28-12 19:19:009[facility]annCARDIAC MXRYTUF2892-92-70 19:19:00<0.02[facility] HermannCARDIAC KKKIPUT9615-50-36 19:19:0077[facility]annCARDIAC QKKLCLT5665-12-20 19:19:000.9[facility] CARDIAC LAQVKJQ9090-71-16 19:19:001.2[facility] HermannCHEM DSTTV0514-79-74 19:19:001.7[facility] HermannCHEM FFLVS2285-69-31 19:19:0019[facility] CARDIAC JCJCBWB9217-45-58 15:02:0067[facility]annCARDIAC CVSJTKO3578-18-26 15:02:00<0.02[facility]annCARDIAC PJVQZWD2905-91-77 10:33:0062[facility]annCARDIAC FZZYIQX0155-07-05 10:33:00<0.02[facility] HipbhcdKVVQAZ6020-44-98 10:33:0029[facility] MzqwwmxVQOQQU8010-07-34 10:33:06780Pfniigjj HermannLIPIDS 2014-09-18 10:33:48356Pgnngfdb DfmhoaxUITFBS8369-82-17 10:33:003.86[facility] HejebdeKGQXYX7799-55-68 10:33:16844Fsxarhit XevpxlhAMWQOB8880-57-61 10:33:0059 [facility]annCARDIAC NJZZQNA1280-50-14 04:21:00<0.02[facility]annCARDIAC BKCYXLP3390-96-03 04:21:0059[facility] HermannCHEM FFWZT2268-95-50 04:21:0085 [facility]annCHEM PHDSO1727-63-45 04:21:000.8[facility] HermannCHEM PANEL 2014-09-18 04:21:003.6[facility] HermannCHEM UQBKU7189-00-44 04:21:06081Zzaftxyv HermannCHEM HLHVA9992-81-93 04:21:83763Yuialwzp HermannCHEM CDXMD5540-99-15 04:21:008.6[facility] HermannCHEM IPAJV5157-11-32 04:21:0019[facility] HermannCHEM YOBZE2549-88-37 04:21:0027[facility] HermannCHEM ASPOR8715-09-28 04:21:0025 [facility]annCHEM RSIIS5881-03-98 04:21:003.6[facility] HermannCHEM PANEL 2014-09-18 04:21:006.8[facility] HermannCHEM CKXOM3784-08-71 04:21:000.3[facility] HermannCHEM HRBMG0180-61-47 04:21:0092[facility] HermannCHEM KKUXB6884-58-83 04:21:0018[facility] HermannCHEM ZNOPD1007-15-56 04:21:40373Gwnsdxsb HermannCHEM KQTZR0474-25-99 04:21:003.2[facility] HermannCHEM XHATU0847-64-78 04:21:0022 [facility]annCHEM YOPSG9223-94-23 04:21:0010.6[facility] HermannCHEM PANEL 2014-09-18 04:21:001.1[facility] KzxidwiEANHHVSHSM4597-61-02 04:21:00* Test Item Value Reference Range Interpretation Comments PTT (test code = PTT) 28.8 s 22.9-35.8 [facility] OmmfmyzTUWBSIATWP8600-63-70 04:21:00* Test Item Value Reference Range Interpretation Comments PT (test code = PT) 12.5 s 12.0-14.7 [facility] FuvcgpuZCJGQWAXQX0809-53-10 04:21:000.94[facility] HermannHEMATOLOGY 2014-09-18 04:21:007.4[facility] PrfxduyBKTPPTQVKJ3176-44-36 04:21:0034.1[facility] NmxyiqwALPXICABPL2327-87-56 04:21:0016.8[facility] IzjchxtDFTPPEKAKX7607-50-40 04:21:23352Fpwiaxmz WolbjutURCFPKLZBD8029-94-10 04:21:0011.4[facility] GXDODHZAQI5204-93-10 04:21:0083.0[facility] EilgcsnJICBMLBTTH1070-78-52 04:21:00* Test Item Value Reference Range Interpretation Comments MCH (test code = MCH) 28.3 pg 27.0-31.0 [facility] IvoannmWYUTDDYWLM9017-71-85 04:21:0033.4[facility] HermannHEMATOLOGY 2014-09-18 04:21:004.03[facility] RtiwspdHJOPCOORID4619-54-49 04:21:007.0[facility] NksfzkgAPZZCTYMIM5170-10-71 04:21:003.7[facility] IixftpmJFESWJPJNF6726-95-77 04:21:000.6[facility] EvfhqlvXRWAKBRZOL2010-06-32 04:21:000.1[facility] TXGHPADGGE1219-14-73 04:21:0052.2[facility] [id number] 04:21:00 0.2[facility] [id number] 04:21:001.8[facility] 2014-09-18 04:21:002.6[facility] [id number] 04:21:008.1[facility] [id number] 04:21:0037.7[facility]
--- NOTE | 2020-01-08 09:06 | NUR ---
lab at bedside to attempt to get blood.
--- NOTE | 2020-01-08 09:18 | NUR ---
Pt does not want to get in gown or sit in stretcher. Pt was explained importance of safty concerns, and continues to refuse.
--- NOTE | 2020-01-08 09:36 | Diagnostic Imaging Report ---
EXAMINATION: CHEST SINGLE (PORTABLE) INDICATION: Chest pain COMPARISON: Chest radiograph 11/20/2019 FINDINGS: LINES/TUBES:EKG leads overlie the chest. LUNGS:The lungs are well-inflated. No focal consolidation or pulmonary edema. PLEURA:No pleural effusion or pneumothorax. MEDIASTINUM:The cardiomediastinal silhouette appears normal in size and shape. Status post coronary artery stenting and CABG. BONES/SOFT TISSUES:No acute osseous injury. Sternotomy wires intact. ABDOMEN:No free air under the diaphragm. IMPRESSION: No focal pneumonia or pulmonary edema. Signed by: Marck Nicholas MD on 01/08/2020 9:32 AM
[2020-01-08 09:46] LABS: ALANINE AMINOTRANSFERASE 44 IU/L (0-55); ALBUMIN 3.3 g/dL (3.5-5.0); ALBUMIN/GLOBULIN RATIO 0.7 (0.8-2.0); ALKALINE PHOSPHATASE 121 IU/L (40-150); AMYLASE 53 U/L (25-125); ANION GAP 17.6 mmol/L (8-16); BLOOD UREA NITROGEN 14 mg/dL (7-26); BUN/CREATININE RATIO 16 (6-25); CARBON DIOXIDE 17 mmol/L (22-29); CHLORIDE 113 mmol/L (98-107); CREATINE KINASE 102 IU/L (29-168); EST GLOMERULAR FILTRATION RATE > 60 ML/MIN (60-); GLUCOSE 107 mg/dL (74-118); LIPASE 21 U/L (8-78); POTASSIUM 4.6 mmol/L (3.5-5.1); SODIUM 143 mmol/L (136-145)
--- NOTE | 2020-01-08 10:10 | NUR ---
Consent on chart. Pt states she doesn't know if she wants to leave or stay because she doesn't want nitro. Pt states she had a patch. Pt asked where the patch was, and pt then states she took it at home [employer]. Explained to patient that the patch would stay on the skin, pt states she isn't sure what she took [employer]? Md notified. Pt states she will NOT take nitro.
[2020-01-08 10:21] LABS: BASOPHILS # (AUTO) 0.1 (0.0-0.1); BASOPHILS % 1.2 % (0.0-1.0); EOSINOPHILS # (AUTO) 0.2 (0.0-0.4); EOSINOPHILS % 2.7 % (0.0-6.0); HEMATOCRIT 36.1 % (34.2-44.1); LYMPHOCYTES # (AUTO) 1.8 (1.0-3.2); LYMPHOCYTES % 23.5 % (18.0-39.1); MEAN CORPUSCULAR HEMOGLOBIN 30.8 pg (28-32); MEAN CORPUSCULAR HGB CONC 33.2 g/dL (31-35); MEAN CORPUSCULAR VOLUME 92.8 fL (81-99); MONOCYTES # (AUTO) 0.6 (0.2-0.8); MONOCYTES % 8.3 % (4.4-11.3); NEUTROPHILS # (AUTO) 4.6 (2.1-6.9); NEUTROPHILS % 60.1 % (38.7-80.0); PLATELET COUNT 398 x10e3/uL (140-360); RED BLOOD COUNT 3.89 x10e6/uL (3.6-5.1); RED CELL DISTRIBUTION WIDTH 14.3 % (11.7-14.4)
--- NOTE | 2020-01-08 10:44 | Emergency Department Note ---
History of Present Illnes History of Present Illness Chief Complaint: Chest Pain History of Present Illness This is a 59 year old female Chief Complaint Comment PATIENT IN FROM HOME WITH COMPLAINTS OF CHEST PAIN RATED 9/10 THAT WOKE HER UP AT 0500. STATES IT RADIATES DOWN LEFT ARM, AND UP INTO JAW. PATIENT APPEARS ANXIOUS AND TEARFUL, AMBULATORY WITHOUT ASSISTANCE, RESP EVEN AND NONLABORED . Historian: Patient Arrival Mode: Car Onset (how long ago): day(s) (1) Location: CHEST Quality: PAIN Radiation: Denies non-radiation, Denies back, Denies neck, Denies extremity, Denies abdomen, Denies periumbilical, Denies flank, Denies proximal, Denies distal, Denies other Severity: mild Onset quality: gradual Duration (how long): day(s) (1) Timing of current episode: intermittent Progression: waxing and waning Chronicity: new Context: Denies recent illness, Denies recent surgery, Denies recent immobilization, Denies recent travel, Denies trauma/injury, Denies new medications, Denies hx of DVT/PE, Denies non-compliance w/ medications, Denies other Relieving factors: none Exacerbating factors: none Associated symptoms: Denies denies other symptoms, Denies confusion, Denies chest pain, Denies cough, Denies diaphoresis, Denies fever/chills, Denies headaches, Denies loss of appetite, Denies malaise, Denies nausea/vomiting, Denies rash, Denies seizure, Denies shortness of breath, Denies syncope, Denies weakness, Denies other Treatments prior to arrival: none Past Medical/Family History Physician Review I have reviewed the patient's past medical and family history. Any updates have been documented here. Past Medical History Recent Fever: No Clinical Suspicion of Infectio: No New/Unexplained Change in Ment: No Past Medical History: Hypertension, Hypothyroidism, CAD, Chronic Back Pain Other Medical History: HEART DISEASE PER PATIENT 18 STENTS LAST HEART CATH Past Surgical History: Cholecysctectomy, Hysterectomy, CABG, Back Surgery Other Surgery: THYROIDECTOMY Social History Smoking Cessation: Former smoker Counseling Performed: No Alcohol Use: None Any Illegal Drug Use: No Physically hurt or threatened: No Other Last Tetanus: UTD Any Pre-Existing Lines (PICC,: No Review of Systems Review of Systems Constitutional: Reports no symptoms EENTM: Reports no symptoms Cardiovascular: Reports as per HPI Respiratory: Reports no symptoms Gastrointestinal: Reports no symptoms Genitourinary: Reports no symptoms Musculoskeletal: Reports no symptoms Integumentary: Reports no symptoms Neurological: Reports no symptoms Psychological: Reports no symptoms Endocrine: Reports no symptoms Hematological/Lymphatic: Reports no symptoms Physical Exam Related Data Allergies: Coded Allergies: Penicillins (Verified Allergy, Severe, THROAT SWELLING, 01/08/20) ketorolac tromethamine (Verified Allergy, Mild, RASH, 01/08/20) metoclopramide HCl (Verified Allergy, Mild, JERKY, 01/08/20) prochlorperazine edisylate (Verified Allergy, Mild, RASH, 01/08/20) prochlorperazine maleate (Verified Allergy, Mild, RASH, 01/08/20) Triage Vital Signs Vital Signs Date Time Temp Pulse Resp B/P (MAP) Pulse Ox O2 Delivery O2 Flow Rate FiO2 01/08/20 08:18 97.3 98 20 173/119 100 Room Air Vital signs reviewed: Yes Physical Exam CONSTITUTIONAL Constitutional: Present well-developed, Present well-nourished HENT HENT: Present normocephalic, Present atraumatic, Present oropharynx clear/moist, Present nose normal; Absent oropharynx normal, Absent mucosae dry, Absent nasal discharge, Absent nasal congestion, Absent rhinorrhea, Absent oropharyngeal exudate, Absent tonsillar excudate, Absent pharynx abnormal, Absent erythema, Absent dentition normal, Absent dental caries, Absent other HENT L/R: Present left ext ear normal, Present right ext ear normal EYES Eyes: Reports PERRL, Reports conjunctivae normal NECK Neck: Present ROM normal; Absent supple, Absent thyromegaly, Absent tracheal deviation, Absent stridor, Absent JVD, Absent cervical adenopathy, Absent carotid bruit, Absent other PULMONARY Pulmonary: Present effort normal, Present breath sounds normal; Absent respiratory distress, Absent rales, Absent rhonchi, Absent chest tenderness, Absent other CARDIOVASCULAR Cardiovascular: Present regular rhythm, Present heart sounds normal, Present capillary refill normal, Present normal rate; Absent irregular rhythm, Absent intact distal pulses, Absent tachycardia, Absent bradycardia, Absent murmur, Absent gallop, Absent friction rub, Absent palpable pulses, Absent strong pulses, Absent weak pulses, Absent LLE edema, Abs ent RLE edema, Absent other GASTROINTESTINAL Abdominal: Present soft, Present nontender, Present bowel sounds normal; Absent distension, Absent tender, Absent guarding, Absent mass, Absent rebound, Absent hernia, Absent left CVA tenderness, Absent right CVA tenderness, Absent other GENITOURINARY Genitourinary: Present exam deferred SKIN Skin: Present warm, Present dry MUSCULOSKELETAL Musculoskeletal: Present ROM normal NEUROLOGICAL Neurological: Present alert, Present oriented x 3, Present no gross motor or sensory deficits PSYCHOLOGICAL Psychological: Present mood/affect normal, Present judgement normal Results Laboratory Result Diagram: 01/08/20 1015 01/08/20 0915 Laboratory Laboratory Tests Test 01/08/20 10:15 01/08/20 09:15 White Blood Count 7.69 x10e3/uL (4.8-10.8) Red Blood Count 3.89 x10e6/uL (3.6-5.1) Hemoglobin 12.0 g/dL (12.0-16.0) Hematocrit 36.1 % (34.2-44.1) Mean Corpuscular Volume 92.8 fL (81-99) Mean Corpuscular Hemoglobin 30.8 pg (28-32) Mean Corpuscular Hemoglobin Concent 33.2 g/dL (31-35) Red Cell Distribution Width 14.3 % (11.7-14.4) Platelet Count 398 x10e3/uL (140-360) Neutrophils (%) (Auto) 60.1 % (38.7-80.0) Lymphocytes (%) (Auto) 23.5 % (18.0-39.1) Monocytes (%) (Auto) 8.3 % (4.4-11.3) Eosinophils (%) (Auto) 2.7 % (0.0-6.0) Basophils (%) (Auto) 1.2 % (0.0-1.0) Neutrophils # (Auto) 4.6 (2.1-6.9) Lymphocytes # (Auto) 1.8 (1.0-3.2) Monocytes # (Auto) 0.6 (0.2-0.8) Eosinophils # (Auto) 0.2 (0.0-0.4) Basophils # (Auto) 0.1 (0.0-0.1) Absolute Immature Granulocyte (auto 0.32 x10e3/uL (0-0.1) Sodium Level 143 mmol/L (136-145) Potassium Level 4.6 mmol/L (3.5-5.1) Chloride Level 113 mmol/L (98-107) Carbon Dioxide Level 17 mmol/L (22-29) Anion Gap 17.6 mmol/L (8-16) Blood Urea Nitrogen 14 mg/dL (7-26) Creatinine 0.90 mg/dL (0.57-1.11) Estimat Glomerular Filtration Rate > 60 ML/MIN (60-) BUN/Creatinine Ratio 16 (6-25) Glucose Level 107 mg/dL (74-118) Calcium Level 10.0 mg/dL (8.4-10.2) Total Bilirubin 0.5 mg/dL (0.2-1.2) Aspartate Amino Transf (AST/SGOT) 30 IU/L (5-34) Alanine Aminotransferase (ALT/SGPT) 44 IU/L (0-55) Alkaline Phosphatase 121 IU/L (40-150) Creatine Kinase 102 IU/L (29-168) Creatine Kinase MB 1.80 ng/mL (0-5.0) Total Protein 8.1 g/dL (6.5-8.1) Albumin 3.3 g/dL (3.5-5.0) Globulin 4.8 g/dL (2.3-3.5) Albumin/Globulin Ratio 0.7 (0.8-2.0) Amylase Level 53 U/L (25-125) Lipase 21 U/L (8-78) Imaging Imaging results reviewed: Yes Procedures 12 Lead ECG Interpretation ECG Interpretation : ECG: ECG 1 Language Path: Interpreted by ED physician Date: Jan 08, 2020 Time: 08:18 Rhythm: sinus rhythm Rate: normal BPM: 84 QRS axis: normal ST segments normal: Yes T waves normal: Yes Clinical Impression: non-specific ECG Assessment & Plan Medical Decision Making MDM ANGINA CAD Reassessment Reassessment time: 10:43 Reassessment LEFT AMA Assessment & Plan Final Impression: (1) FH: CABG (coronary artery bypass surgery) (2) Chest pain Depart Disposition: AGAINST MEDICAL ADVICE Last Vital Signs Date Time Temp Pulse Resp B/P (MAP) Pulse Ox O2 Delivery O2 Flow Rate FiO2 01/08/20 10:22 167/113 01/08/20 09:10 88 16 01/08/20 08:18 97.3 100 Room Air Home Meds Active Scripts Levothyroxine Sodium (SYNTHROID) 50 Mcg Tab, 200 MCG PO 0630 for 14 Days, #14 TAB 0 Refills Prov:YUDITH CONNER EVIE 11/22/19 Clonazepam (CLONAZEPAM) 2 Mg Tab.rapdis, 2 MG PO TID for 3 Days, #9 TAB 0 Refills Prov:YUDITH CONNER EVIE 11/22/19 Nitroglycerin (NITROSTAT) 0.4 Mg Tab.subl, 0.4 MG SL Q5M PRN for CHEST PAIN for 14 Days, #14 TAB 0 Refills Prov:YUDITH CONNER Jones CASE 11/22/19 Clopidogrel Bisulfate* (PLAVIX) 75 Mg Tablet, 75 MG PO DAILY for 14 Days, #14 TAB 0 Refills Prov:YUDITH CONNER Jones CASE 11/22/19 [Acetamin/Butalbital/Caffeine] 1 EA TAB No Conflict Check, 1 EA PO Q6H PRN for HEADACHE for 14 Days, #14 TAB 0 Refills Prov:YUDITH CONNER Jones CASE 11/22/19 Magnesium Hydroxide (MILK OF MAGNESIA) 2,400 Mg/10 Ml Oral.susp, 30 ML PO HS for 30 Days, ML Prov:ANTELMO HEART MD 09/29/19 Ondansetron Hcl* (ZOFRAN*) 4 Mg Tablet, 4 MG PO Q4HR PRN for nausea/vomiting, #30 Prov:ANTELMO HEART MD 09/29/19 Lactulose (LACTULOSE) 20 Gm/30 Ml Solution, 20 GM PO BID PRN for CONSTIPATION for 30 Days Prov:ANTELMO HEART MD 09/29/19 Amlodipine Besylate (NORVASC) 5 Mg Tab, 5 MG PO DAILY for 30 Days, TAB Prov:ANTELMO HEART MD 09/29/19 Sennosides (SENNA LAX) 8.6 Mg Tablet, 8.6 MG PO BID PRN for CONSTIPATION for 30 Days, TAB Prov:ANTELMO HEART MD 09/06/19 Metoprolol Succinate (TOPROL XL) 25 Mg Tab.er.24h, 12.5 MG PO DAILY for 30 Days Prov:ANTELMO HEART MD 09/06/19 Docusate Sodium (COLACE) 100 Mg Cap, 100 MG PO BID PRN for constipation for 30 D ays, CAP Prov:ANTELMO HEART MD 09/06/19 [Atorvastatin] 80 MG TAB No Conflict Check, 80 MG PO HS for 30 Days Prov:ANTELMO HEART MD 09/06/19 Aspirin (ASPIRIN EC) 81 Mg Tablet.dr, 81 MG PO QAM for 30 Days Prov:ANTELMO HEART MD 09/06/19 Pantoprazole Sodium* (PROTONIX) 40 Mg Tablet.dr, 40 MG PO DAILY for 30 Days, TAB Prov:LIBERTAD QUIÑONEZ MD 05/22/16 Reported Medications Tramadol Hcl (ULTRAM) 50 Mg Tablet, 50 MG PO Q4HR PRN for SEVERE PAIN (7-10), TAB 11/20/19 Alprazolam (XANAX) 0.5 Mg Tablet, 0.5 MG PO PRN 04/10/16 Temazepam (RESTORIL) 30 Mg Capsule, 30 MG PO BEDTIME 05/22/14 Lisinopril (LISINOPRIL) 10 Mg Tablet, 10 MG PO BID, #30 TAB 05/22/14 Medications in the ED Aspirin 324 mg ONCE STAT PO ; Start 01/08/20 at 08:26; Stop 01/08/20 at 08:31; Status DC Aspirin 81 mg PRN ONCE PO ; Start 01/08/20 at 08:30; Stop 01/08/20 at 08:31; Status DC SOLANGE SMART MD Jan 08, 2020 10:44
[2020-01-08 10:46] LABS: INR 0.94
[2020-01-08 10:47] LABS: PARTIAL THROMBOPLASTIN TIME 32.4 seconds (23.8-35.5)
== END 2020-01-08 11:22 | disposition left against medical advice (07) ==
LOC: ER 08:55
DX: R07.9 Chest pain, unspecified (principal); I10 Essential (primary) hypertension; Z95.1 Presence of aortocoronary bypass graft; Z95.5 Presence of coronary angioplasty implant and graft; Z87.891 Personal history of nicotine dependence
CPT/HCPCS: 36415; 71045; 80053; 82150; 82550; 82553; 83690; 83880; 84484; 85025; 85610; 85730; 93005; 99284

== ENCOUNTER 2020-10-01 14:09 | Emergency (ER) | payer OTHER ==
[~2020-10-01] VITALS: Ht 162.6 cm; Wt 61.2 kg
[2020-10-01] MEDS ORDERED: SODIUM CHLORIDE 0.9% 1000ML 1,000 ML IV STA (14:42)
== END 2020-10-01 19:30 | disposition left against medical advice (07) ==
LOC: ER 14:56
DX: G44.309 Post-traumatic headache, unspecified, not intractable (principal); S16.1XXA Strain of muscle, fascia and tendon at neck level, initial encounter; R55 Syncope and collapse; W01.0XXA Fall on same level from slipping, tripping and stumbling without subsequent striking against object, initial encounter; Y92.008 Other place in unspecified non-institutional (private) residence as the place of occurrence of the external cause
CPT/HCPCS: 70450; 71045; 93005; 99282; J7030

== ENCOUNTER 2021-01-30 10:52 | Emergency (ER) | payer BC ==
[~2021-01-30] VITALS: Ht 160 cm; Wt 63.5 kg
[2021-01-30] MEDS ORDERED: ONDANSETRON HCL INJ 2MG/ML 2ML 2 MG/ML VIAL IV ONE (12:00)
[2021-01-30] MEDS ORDERED: ACETAMINOPHEN 325 MG TAB PO ONE (12:00)
[2021-01-30 12:28] LABS: BASOPHILS # (AUTO) 0.1 (0.0-0.1); BASOPHILS % 1.3 % (0.0-1.0); EOSINOPHILS # (AUTO) 0.3 (0.0-0.4); EOSINOPHILS % 5.6 % (0.0-6.0); HEMATOCRIT 42.4 % (34.2-44.1); LYMPHOCYTES % 33.4 % (18.0-39.1); MEAN CORPUSCULAR HEMOGLOBIN 31.9 pg (28-32); MEAN CORPUSCULAR VOLUME 96.6 fL (81-99); MONOCYTES # (AUTO) 0.7 (0.2-0.8); MONOCYTES % 11.8 % (4.4-11.3); NEUTROPHILS # (AUTO) 2.9 (2.1-6.9); NEUTROPHILS % 47.6 % (38.7-80.0); PLATELET COUNT 266 x10e3/uL (140-360); RED BLOOD COUNT 4.39 x10e6/uL (3.6-5.1); RED CELL DISTRIBUTION WIDTH 13.2 % (11.7-14.4)
[2021-01-30] MEDS ORDERED: TRAMADOL HCL 50 MG TAB PO ONE (12:30)
[2021-01-30 12:53] LABS: ALBUMIN 3.9 g/dL (3.5-5.0); ALBUMIN/GLOBULIN RATIO 1.1 (0.8-2.0); ANION GAP 15.5 mmol/L (8-16); CALCIUM 9.4 mg/dL (8.4-10.2); CREATININE, SERUM 0.92 mg/dL (0.57-1.11); POTASSIUM 4.5 mmol/L (3.5-5.1)
[2021-01-30 13:20] VITALS: BP 167/95
[2021-01-30] MEDS ORDERED: AZITHROMYCIN250 MG PO (13:21)
[2021-01-30] MEDS ORDERED: ONDANSETRON ODT4 MG PO (13:21)
== END 2021-01-30 13:33 | disposition home or self-care (01) ==
LOC: ER 11:20
DX: R07.89 Other chest pain (principal); R11.2 Nausea with vomiting, unspecified; I10 Essential (primary) hypertension; E03.9 Hypothyroidism, unspecified; I25.10 Atherosclerotic heart disease of native coronary artery without angina pectoris; M54.9 Dorsalgia, unspecified; G89.29 Other chronic pain; Z20.822 Contact with and (suspected) exposure to COVID-19; R94.31 Abnormal electrocardiogram [ECG] [EKG]; Z95.1 Presence of aortocoronary bypass graft; Z95.5 Presence of coronary angioplasty implant and graft
CPT/HCPCS: 36415; 71045; 80053; 83880; 84484; 85025; 85379; 93005; 99284; J2405; U0002

== ENCOUNTER 2021-02-19 23:33 | Emergency (ER) | payer BC ==
[~2021-02-19] VITALS: Ht 160 cm; Wt 63.5 kg
[~2021-02-19 23:33] MED LIST changes: +AZITHROMYCIN250 MG PO; +ONDANSETRON ODT4 MG PO
[2021-02-20] MEDS ORDERED: FAMOTIDINE 20 MG/2 ML VIAL IV STA (00:22)
[2021-02-20] MEDS ORDERED: ONDANSETRON HCL INJ 2MG/ML 2ML 2 MG/ML VIAL IV STA (00:22)
[2021-02-20] MEDS ORDERED: Morphine 4mg Syringe 4 MG/ML INJ ONE (00:57)
[2021-02-20] MEDS ORDERED: Morphine 4mg Syringe 4 MG/ML INJ IM ONE (01:00)
[2021-02-20 01:01] LABS: BASOPHILS # (AUTO) 0.1 (0.0-0.1); BASOPHILS % 1.5 % (0.0-1.0); EOSINOPHILS # (AUTO) 0.4 (0.0-0.4); EOSINOPHILS % 7.2 % (0.0-6.0); HEMATOCRIT 36.5 % (34.2-44.1); HEMOGLOBIN 12.2 g/dL (12.0-16.0); LYMPHOCYTES # (AUTO) 2.5 (1.0-3.2); LYMPHOCYTES % 46.3 % (18.0-39.1); MEAN CORPUSCULAR HEMOGLOBIN 31.9 pg (28-32); MEAN CORPUSCULAR HGB CONC 33.4 g/dL (31-35); MEAN CORPUSCULAR VOLUME 95.5 fL (81-99); MONOCYTES # (AUTO) 0.5 (0.2-0.8); MONOCYTES % 10.2 % (4.4-11.3); NEUTROPHILS # (AUTO) 1.8 (2.1-6.9); NEUTROPHILS % 34.6 % (38.7-80.0); PLATELET COUNT 236 x10e3/uL (140-360); RED BLOOD COUNT 3.82 x10e6/uL (3.6-5.1); RED CELL DISTRIBUTION WIDTH 13.6 % (11.7-14.4)
[2021-02-20 01:23] LABS: ALBUMIN 3.4 g/dL (3.5-5.0); ANION GAP 14.2 mmol/L (8-16); CALCIUM 9.2 mg/dL (8.4-10.2); CREATININE, SERUM 0.98 mg/dL (0.57-1.11); POTASSIUM 4.2 mmol/L (3.5-5.1)
[2021-02-20 01:32] LABS: CREATINE KINASE MB 9.4 ng/mL (0-5.0)
[2021-02-20] MEDS ORDERED: SODIUM CHLORIDE 0.9% 50ML 0 ML ONE (02:18)
[2021-02-20] MEDS ORDERED: IOPAMIDOL 370 MG/ML 200 ML INFUS..BTL INJ ONE (02:18)
[2021-02-20] MEDS ORDERED: ONDANSETRON ODT4 MG PO (03:28)
[2021-02-20] MEDS ORDERED: CIPRO500 MG PO (03:28)
[2021-02-20] MEDS ORDERED: ACETAMINOPHEN-1 EAC4 PO (03:28)
[2021-02-20] MEDS ORDERED: METRONIDAZOLE500 MG PO (03:28)
== END 2021-02-20 04:11 | disposition home or self-care (01) ==
LOC: ER 02-20 00:23
DX: R10.13 Epigastric pain (principal); K52.9 Noninfective gastroenteritis and colitis, unspecified; R11.2 Nausea with vomiting, unspecified; I10 Essential (primary) hypertension; E03.9 Hypothyroidism, unspecified; I25.10 Atherosclerotic heart disease of native coronary artery without angina pectoris; M54.9 Dorsalgia, unspecified; G89.29 Other chronic pain; Z95.1 Presence of aortocoronary bypass graft; Z95.5 Presence of coronary angioplasty implant and graft
CPT/HCPCS: 36415; 74176; 80053; 82550; 82553; 83690; 84484; 85025; 99284; J2270; J2405; Q9967

== ENCOUNTER 2021-02-20 13:45 | Observation (INO) | payer BC ==
[~2021-02-20] VITALS: Ht 160 cm; Wt 66.7 kg
[2021-02-20] MEDS: Morphine 2mg Syringe 2 MG/ML SYR IV PRN ×2 (11:45→23:45)
[~2021-02-20 13:45] MED LIST changes: +ACETAMINOPHEN-1 EAC4 PO; +CIPRO500 MG PO; +METRONIDAZOLE500 MG PO
[2021-02-20] MEDS ORDERED: ONDANSETRON HCL INJ 2MG/ML 2ML 2 MG/ML VIAL IV STA ×2 (14:01→17:50)
[2021-02-20 14:50] LABS: BASOPHILS # (AUTO) 0.1 (0.0-0.1); BASOPHILS % 1.9 % (0.0-1.0); EOSINOPHILS # (AUTO) 0.3 (0.0-0.4); EOSINOPHILS % 5.8 % (0.0-6.0); HEMATOCRIT 39.3 % (34.2-44.1); HEMOGLOBIN 12.6 g/dL (12.0-16.0); LYMPHOCYTES # (AUTO) 1.7 (1.0-3.2); LYMPHOCYTES % 35.3 % (18.0-39.1); MEAN CORPUSCULAR HEMOGLOBIN 31.9 pg (28-32); MEAN CORPUSCULAR HGB CONC 32.1 g/dL (31-35); MEAN CORPUSCULAR VOLUME 99.5 fL (81-99); MONOCYTES # (AUTO) 0.5 (0.2-0.8); MONOCYTES % 10.1 % (4.4-11.3); NEUTROPHILS # (AUTO) 2.3 (2.1-6.9); NEUTROPHILS % 46.9 % (38.7-80.0); PLATELET COUNT 163 x10e3/uL (140-360); RED BLOOD COUNT 3.95 x10e6/uL (3.6-5.1); RED CELL DISTRIBUTION WIDTH 13.8 % (11.7-14.4)
[2021-02-20 15:08] LABS: ALBUMIN 3.4 g/dL (3.5-5.0); ANION GAP 16.7 mmol/L (8-16); CALCIUM 9.1 mg/dL (8.4-10.2); CREATININE, SERUM 1.08 mg/dL (0.57-1.11); POTASSIUM 4.7 mmol/L (3.5-5.1)
[2021-02-20 15:14] LABS: CREATINE KINASE MB 7.7 ng/mL (0-5.0)
[2021-02-20] MEDS ORDERED: ZIPRASIDONE 20 MG VIAL IM STA (15:59)
[2021-02-20] MEDS ORDERED: HYDROMORPHONE 1MG/1ML INJ IV STA (17:50)
[2021-02-20] MEDS ORDERED: HYDROMORPHONE 1MG/1ML INJ ONE (17:55)
[2021-02-20] MEDS ORDERED: ONDANSETRON HCL INJ 2MG/ML 2ML 2 MG/ML VIAL ONE (17:55)
[2021-02-20] MEDS ORDERED: ALPRAZOLAM 0.5 MG TAB PO SCH (20:45)
[2021-02-20] MEDS ORDERED: HYDROMORPHONE 1MG/1ML INJ IV PRN (20:45)
[2021-02-20] MEDS ORDERED: HYDROMORPHONE 1MG/1ML INJ IV ONE (20:45)
[2021-02-20] MEDS ORDERED: HYDROCODONE/APAP 5MG-325MG TAB PO PRN (20:45)
[2021-02-20 21:37] VITALS: BP 125/88
[2021-02-20 22:00] VITALS: BP 125/88
[2021-02-20] MEDS: SODIUM CHLORIDE 0.9% 1000ML 1,000 ML IV SCH (23:57)
[2021-02-20] MEDS: Pantoprazole IV 40 MG in SODIUM CHLORIDE 0.9% 50ML 50 ML IV SCH (23:57)
[2021-02-20] MEDS: TEMAZEPAM 15 MG CAP PO PRN (23:57)
[2021-02-21] VITALS (8 sets, daily range): BP systolic 110–154; BP diastolic 72–99
[2021-02-21] MEDS: Morphine 2mg Syringe 2 MG/ML SYR IV PRN ×4 (04:38→21:09)
[2021-02-21 05:31] LABS: EOSINOPHILS % 7.1 % (0.0-6.0); HEMATOCRIT 38.4 % (34.2-44.1); HEMOGLOBIN 12.2 g/dL (12.0-16.0); LYMPHOCYTES % 48.5 % (18.0-39.1); MEAN CORPUSCULAR HEMOGLOBIN 31.7 pg (28-32); MEAN CORPUSCULAR HGB CONC 31.8 g/dL (31-35); MEAN CORPUSCULAR VOLUME 99.7 fL (81-99); MONOCYTES % 11.4 % (4.4-11.3); NEUTROPHILS % 31.1 % (38.7-80.0); PLATELET COUNT 201 x10e3/uL (140-360); RED BLOOD COUNT 3.85 x10e6/uL (3.6-5.1); RED CELL DISTRIBUTION WIDTH 13.7 % (11.7-14.4)
[2021-02-21 05:32] LABS: BASOPHILS # (AUTO) 0.1 (0.0-0.1); BASOPHILS % 1.6 % (0.0-1.0); EOSINOPHILS # (AUTO) 0.3 (0.0-0.4); LYMPHOCYTES # (AUTO) 1.8 (1.0-3.2); MONOCYTES # (AUTO) 0.4 (0.2-0.8); NEUTROPHILS # (AUTO) 1.1 (2.1-6.9)
[2021-02-21 05:59] LABS: CREATINE KINASE 192 IU/L (29-168)
[2021-02-21 06:01] LABS: CALCIUM 8.7 mg/dL (8.4-10.2); CREATININE, SERUM 0.85 mg/dL (0.57-1.11)
[2021-02-21] MEDS: Pantoprazole IV 40 MG in SODIUM CHLORIDE 0.9% 50ML 50 ML IV SCH ×5 (06:24→23:36)
[2021-02-21] MEDS: LEVOTHYROXINE SODIUM 100 MCG TAB PO SCH (06:24)
[2021-02-21] MEDS: SODIUM CHLORIDE 0.9% 1000ML 1,000 ML IV SCH ×3 (06:45→17:56)
[2021-02-21] MEDS ORDERED: METOPROLOL SUCCINATE 25 MG TAB XL PO SCH (09:00)
[2021-02-21] MEDS ORDERED: AMLODIPINE BESYLATE 5 MG TAB PO SCH (09:00)
[2021-02-21 09:06] LABS: CLARITY,URINE CLEAR (CLEAR); COLOR,URINE YELLOW (YELLOW); LEUKOCYTE ESTERASE ,URINE NEGATIVE (NEGATIVE); NITRITE,URINE NEGATIVE (NEGATIVE)
[2021-02-21 09:07] LABS: KETONES,URINE NEGATIVE (NEGATIVE); PROTEIN,URINE DIPSTICK NEGATIVE (NEGATIVE); URINE UROBILINOGEN 0.2 mg/dL (0.2 - 1)
[2021-02-21 09:11] LABS: AMPHETAMINES SCREEN,URINE NEGATIVE (NEGATIVE); BENZODIAZEPINES SCREEN,URINE POSITIVE (NEGATIVE); PHENCYCLIDINE SCREEN,URINE NEGATIVE (NEGATIVE)
[2021-02-21 09:24] LABS: BACTERIA,URINE FEW /HPF; EPITHELIAL CELLS,URINE FEW /LPF; RBC,URINE 0-5 /HPF (0-5); WBC,URINE (MAN) 0-5 /HPF (0-5)
[2021-02-21 10:22] LABS: CHOL/HDL RATIO 3.4 (3.0-3.6)
[2021-02-21] MEDS: ONDANSETRON HCL INJ 2MG/ML 2ML 2 MG/ML VIAL IV PRN ×2 (10:40→18:03)
[2021-02-21 10:43] LABS: THYROID STIMULATING HORMONE 0.061 uIU/mL (0.350-4.940)
[2021-02-21] MEDS ORDERED: Morphine 2mg Syringe 2 MG/ML SYR IV ONE (22:00)
[2021-02-22] MEDS ORDERED: CHLORDIAZEPOXIDE/CLIDINIUM 1 CAP PO ONE
[2021-02-22] MEDS ORDERED: MAGNESIUM HYDROXIDE 30 ML UDC PO ONE
[2021-02-22] MEDS: Morphine 2mg Syringe 2 MG/ML SYR IV PRN ×3 (00:14→06:25)
[2021-02-22] MEDS: TEMAZEPAM 15 MG CAP PO PRN (00:15)
[2021-02-22 00:29] VITALS: BP 102/68
[2021-02-22] MEDS: SODIUM CHLORIDE 0.9% 1000ML 1,000 ML IV SCH (03:24)
[2021-02-22] MEDS: LEVOTHYROXINE SODIUM 100 MCG TAB PO SCH (03:52)
[2021-02-22 04:00] VITALS: BP 112/62
[2021-02-22] MEDS: Pantoprazole IV 40 MG in SODIUM CHLORIDE 0.9% 50ML 50 ML IV SCH (04:26)
[2021-02-22 06:42] LABS: BASOPHILS # (AUTO) 0.1 (0.0-0.1); BASOPHILS % 1.5 % (0.0-1.0); EOSINOPHILS # (AUTO) 0.2 (0.0-0.4); EOSINOPHILS % 5.4 % (0.0-6.0); HEMATOCRIT 35.4 % (34.2-44.1); HEMOGLOBIN 11.3 g/dL (12.0-16.0); LYMPHOCYTES # (AUTO) 1.7 (1.0-3.2); LYMPHOCYTES % 44.6 % (18.0-39.1); MEAN CORPUSCULAR HEMOGLOBIN 31.5 pg (28-32); MEAN CORPUSCULAR HGB CONC 31.9 g/dL (31-35); MEAN CORPUSCULAR VOLUME 98.6 fL (81-99); MONOCYTES # (AUTO) 0.4 (0.2-0.8); NEUTROPHILS # (AUTO) 1.5 (2.1-6.9); NEUTROPHILS % 38.2 % (38.7-80.0); PLATELET COUNT 230 x10e3/uL (140-360); RED BLOOD COUNT 3.59 x10e6/uL (3.6-5.1); RED CELL DISTRIBUTION WIDTH 13.4 % (11.7-14.4)
[2021-02-22 07:02] LABS: ALBUMIN 2.9 g/dL (3.5-5.0); CALCIUM 8.5 mg/dL (8.4-10.2); CHOL/HDL RATIO 3.4 (3.0-3.6); CREATININE, SERUM 0.98 mg/dL (0.57-1.11)
[2021-02-22 07:21] LABS: THYROID STIMULATING HORMONE 0.532 uIU/mL (0.350-4.940)
[2021-02-22 08:46] VITALS: BP 141/95
[2021-02-22] MEDS ORDERED: CHLORDIAZEPOXIDE/CLIDINIUM 1 CAP PO SCH (09:00)
[2021-02-22] MEDS ORDERED: SYNTHROID50 MCG PO (09:53)
[2021-02-22 10:13] VITALS: BP 141/95
[2021-02-22] MEDS ORDERED: CIPRO500 MG PO (10:39)
[2021-02-22] MEDS ORDERED: MIDAZOLAM HCL 2 MG/2 ML VIAL ONE (12:32)
[2021-02-22] MEDS ORDERED: LIDOCAINE HCL 2% LOCAL INJ 5 ML SDV VIAL INJ ONE (13:12)
[2021-02-22] MEDS ORDERED: PROPOFOL IV EMULSION 10 MG/ML 20 ML VIAL ONE (13:12)
== END 2021-02-22 12:37 | disposition home or self-care (01) ==
LOC: ER 13:58 → ERHOLD 14:47 → MED/SURG 21:19
PROVIDERS: ADMIT Internal Medicine; ATTEND Internal Medicine
DX: K31.1 Adult hypertrophic pyloric stenosis (principal); K20.90 Esophagitis, unspecified without bleeding; K44.9 Diaphragmatic hernia without obstruction or gangrene; K29.70 Gastritis, unspecified, without bleeding; T18.2XXA Foreign body in stomach, initial encounter; Z88.0 Allergy status to penicillin; Z88.8 Allergy status to other drugs, medicaments and biological substances; K59.00 Constipation, unspecified; I10 Essential (primary) hypertension; E78.5 Hyperlipidemia, unspecified; I25.10 Atherosclerotic heart disease of native coronary artery without angina pectoris; Z95.1 Presence of aortocoronary bypass graft; Z72.0 Tobacco use; Z90.49 Acquired absence of other specified parts of digestive tract; E89.0 Postprocedural hypothyroidism; G89.4 Chronic pain syndrome
CPT/HCPCS: 36415 ×3; 36569 ×2; 43239; 43245; 71045; 80053 ×3; 80061 ×2; 80307; 81001; 82550 ×2; 82553 ×2; 83690; 84439; 84443 ×2; 84480; 84484 ×2; 85025 ×3; 88305; 88312; 93005; 93306; 97116; 97139; 97161; 99284; C1726; C9113 ×3; G0378 ×3; J1170; J2001; J2250; J2270 ×3; J2405 ×3; J2704; J7030 ×3; U0002; 43450

== ENCOUNTER 2021-09-09 20:53 | Emergency (ER) | payer BC, OTHER ==
[~2021-09-09] VITALS: Ht 160 cm; Wt 66.7 kg
[2021-09-09] MEDS ORDERED: ONDANSETRON HCL INJ 2MG/ML 2ML 2 MG/ML VIAL IV STA (21:03)
[2021-09-09] MEDS ORDERED: Morphine 2mg Syringe 2 MG/ML SYR IV ONE ×2 (21:15→22:15)
[2021-09-09] MEDS ORDERED: Morphine 4mg Syringe 4 MG/ML INJ ONE (21:16)
[2021-09-09 21:41] LABS: BASOPHILS # (AUTO) 0.2 (0.0-0.1); BASOPHILS % 1.4 % (0.0-1.0); EOSINOPHILS # (AUTO) 0.2 (0.0-0.4); HEMATOCRIT 47.7 % (34.2-44.1); HEMOGLOBIN 15.6 g/dL (12.0-16.0); LYMPHOCYTES # (AUTO) 2.5 (1.0-3.2); MEAN CORPUSCULAR HEMOGLOBIN 32.8 pg (28-32); MEAN CORPUSCULAR HGB CONC 32.7 g/dL (31-35); MEAN CORPUSCULAR VOLUME 100.4 fL (81-99); MONOCYTES # (AUTO) 0.9 (0.2-0.8); MONOCYTES % 8.2 % (4.4-11.3); PLATELET COUNT 309 x10e3/uL (140-360); RED BLOOD COUNT 4.75 x10e6/uL (3.6-5.1); RED CELL DISTRIBUTION WIDTH 14.1 % (11.7-14.4)
[2021-09-09 21:49] LABS: ALANINE AMINOTRANSFERASE 18 IU/L (0-55); ALBUMIN 4.2 g/dL (3.5-5.0); ALBUMIN/GLOBULIN RATIO 1.2 (0.8-2.0); ALKALINE PHOSPHATASE 91 IU/L (40-150); ANION GAP 20.6 mmol/L (8-16); BLOOD UREA NITROGEN 23 mg/dL (7-26); BUN/CREATININE RATIO 18 (6-25); CALCIUM 9.6 mg/dL (8.4-10.2); CARBON DIOXIDE 20 mmol/L (22-29); CHLORIDE 109 mmol/L (98-107); CREATINE KINASE 179 IU/L (29-168); GLUCOSE 73 mg/dL (74-118); POTASSIUM 4.6 mmol/L (3.5-5.1); SODIUM 145 mmol/L (136-145)
[2021-09-09] MEDS ORDERED: IOPAMIDOL 370 MG/ML 100 ML INFUS..BTL INJ ONE (22:11)
[2021-09-09] MEDS ORDERED: METOPROLOL TARTRATE 50 MG TAB PO ONE (23:00)
[2021-09-09] MEDS ORDERED: HYDROMORPHONE 1MG/1ML INJ IV STA (23:54)
[2021-09-10] MEDS ORDERED: PERCOCET 7.5-31 EACH PO (00:12)
[2021-09-10 01:09] VITALS: BP 139/96
== END 2021-09-10 01:50 | disposition home or self-care (01) ==
LOC: ER 21:00
DX: S22.010A Wedge compression fracture of first thoracic vertebra, initial encounter for closed fracture (principal); S22.020A Wedge compression fracture of second thoracic vertebra, initial encounter for closed fracture; S22.030A Wedge compression fracture of third thoracic vertebra, initial encounter for closed fracture; S00.83XA Contusion of other part of head, initial encounter; M54.2 Cervicalgia; R07.89 Other chest pain; W19.XXXA Unspecified fall, initial encounter; Y93.01 Activity, walking, marching and hiking; Y92.89 Other specified places as the place of occurrence of the external cause; I10 Essential (primary) hypertension; I50.9 Heart failure, unspecified; E03.9 Hypothyroidism, unspecified; F41.9 Anxiety disorder, unspecified; E78.5 Hyperlipidemia, unspecified; K21.9 Gastro-esophageal reflux disease without esophagitis; Z95.5 Presence of coronary angioplasty implant and graft; Z20.822 Contact with and (suspected) exposure to COVID-19; R94.31 Abnormal electrocardiogram [ECG] [EKG]
CPT/HCPCS: 36415; 70450; 71250; 72125; 73080; 73130; 73502; 80053; 82550; 82553; 84484; 85025; 93005; 99284; C9113; J1170; J2270 ×2; J2405; Q9967; U0002

== ENCOUNTER 2021-09-12 02:39 | Emergency (ER) | payer BC ==
[~2021-09-12] VITALS: Ht 160 cm; Wt 66.7 kg
[~2021-09-12 02:39] MED LIST changes: +PERCOCET 7.5-31 EACH PO
[2021-09-12 04:30] LABS: CLARITY,URINE SL CLOUDY (CLEAR); COLOR,URINE YELLOW (YELLOW); KETONES,URINE NEGATIVE (NEGATIVE); LEUKOCYTE ESTERASE ,URINE SMALL (NEGATIVE); NITRITE,URINE NEGATIVE (NEGATIVE); PROTEIN,URINE DIPSTICK NEGATIVE (NEGATIVE); URINE UROBILINOGEN 1 mg/dL (0.2 - 1)
[2021-09-12 04:36] LABS: BACTERIA,URINE FEW /HPF; EPITHELIAL CELLS,URINE MODERATE /LPF; RBC,URINE 0-5 /HPF (0-5)
== END 2021-09-12 05:15 | disposition home or self-care (01) ==
LOC: ER 02:43
DX: R07.89 Other chest pain (principal); M54.50 Low back pain, unspecified; I10 Essential (primary) hypertension; E78.5 Hyperlipidemia, unspecified; I50.9 Heart failure, unspecified; E03.9 Hypothyroidism, unspecified; F41.9 Anxiety disorder, unspecified; K21.9 Gastro-esophageal reflux disease without esophagitis; Z95.5 Presence of coronary angioplasty implant and graft
CPT/HCPCS: 36415; 81001; 84484; 93005; 99284

== ENCOUNTER 2021-09-12 05:29 | Emergency (ER) | payer BC ==
[~2021-09-12] VITALS: Ht 160 cm; Wt 66.7 kg
== END 2021-09-12 06:09 | disposition home or self-care (01) ==
LOC: ER 05:34
DX: M54.50 Low back pain, unspecified (principal); W19.XXXA Unspecified fall, initial encounter; I10 Essential (primary) hypertension; E78.5 Hyperlipidemia, unspecified; E03.9 Hypothyroidism, unspecified; I50.9 Heart failure, unspecified; K21.9 Gastro-esophageal reflux disease without esophagitis; F41.9 Anxiety disorder, unspecified; M54.9 Dorsalgia, unspecified; G89.29 Other chronic pain; Z95.5 Presence of coronary angioplasty implant and graft
CPT/HCPCS: 99282

== ENCOUNTER 2021-09-21 22:18 | Emergency (ER) | payer BC ==
[~2021-09-21] VITALS: Ht 160 cm; Wt 66.7 kg
[2021-09-21] MEDS ORDERED: ASPIRIN 81 MG CHEW TAB PO ONE (23:00)
[2021-09-21] MEDS ORDERED: METHYLPREDNISOLONE SOD SUCC 125 MG/2ML VIAL IV ONE (23:15)
[2021-09-21] MEDS ORDERED: ACETAMINOPHEN 325 MG TAB PO ONE (23:15)
[2021-09-21] MEDS ORDERED: DIPHENHYDRAMINE HCL INJ 50 MG/ML VIAL IV ONE (23:15)
[2021-09-22 00:33] LABS: BASOPHILS # (AUTO) 0.1 (0.0-0.1); BASOPHILS % 1.7 % (0.0-1.0); EOSINOPHILS # (AUTO) 0.3 (0.0-0.4); EOSINOPHILS % 4.1 % (0.0-6.0); HEMATOCRIT 42.3 % (34.2-44.1); HEMOGLOBIN 13.3 g/dL (12.0-16.0); LYMPHOCYTES # (AUTO) 2.4 (1.0-3.2); LYMPHOCYTES % 34.3 % (18.0-39.1); MEAN CORPUSCULAR HEMOGLOBIN 33.6 pg (28-32); MEAN CORPUSCULAR HGB CONC 31.4 g/dL (31-35); MEAN CORPUSCULAR VOLUME 106.8 fL (81-99); MONOCYTES # (AUTO) 0.9 (0.2-0.8); MONOCYTES % 12.8 % (4.4-11.3); NEUTROPHILS # (AUTO) 3.2 (2.1-6.9); NEUTROPHILS % 46.8 % (38.7-80.0); PLATELET COUNT 227 x10e3/uL (140-360); RED BLOOD COUNT 3.96 x10e6/uL (3.6-5.1); RED CELL DISTRIBUTION WIDTH 13.3 % (11.7-14.4)
[2021-09-22 00:40] LABS: INR 0.84; PROTHROMBIN TIME 12.3 seconds (11.9-14.5)
[2021-09-22 00:41] LABS: CLARITY,URINE CLEAR (CLEAR); COLOR,URINE YELLOW (YELLOW); LEUKOCYTE ESTERASE ,URINE 1+ (NEGATIVE); NITRITE,URINE POSITIVE (NEGATIVE); PARTIAL THROMBOPLASTIN TIME 28.7 seconds (23.8-35.5)
[2021-09-22 00:42] LABS: KETONES,URINE NEGATIVE (NEGATIVE); PROTEIN,URINE DIPSTICK TRACE (NEGATIVE); URINE UROBILINOGEN 0.2 mg/dL (0.2 - 1)
[2021-09-22 00:49] LABS: ALANINE AMINOTRANSFERASE 25 IU/L (0-55); ALBUMIN/GLOBULIN RATIO 1.4 (0.8-2.0); ALKALINE PHOSPHATASE 88 IU/L (40-150); ANION GAP 15.3 mmol/L (8-16); BLOOD UREA NITROGEN 25 mg/dL (7-26); BUN/CREATININE RATIO 21 (6-25); CALCIUM 8.7 mg/dL (8.4-10.2); CARBON DIOXIDE 25 mmol/L (22-29); CHLORIDE 107 mmol/L (98-107); CREATINE KINASE 130 IU/L (29-168); CREATININE, SERUM 1.18 mg/dL (0.57-1.11); GLUCOSE 96 mg/dL (74-118); POTASSIUM 4.3 mmol/L (3.5-5.1); SODIUM 143 mmol/L (136-145)
[2021-09-22 01:10] LABS: BACTERIA,URINE MANY /HPF; EPITHELIAL CELLS,URINE FEW /LPF; WBC,URINE (MAN) >50 /HPF (0-5)
[2021-09-22] MEDS ORDERED: TRIMETHOPRIM/SULFAMETHOXAZOLE 160-800 MG TAB PO ONE (01:15)
[2021-09-22 04:44] VITALS: BP 111/58
== END 2021-09-22 04:47 | disposition short-term general hospital (02) ==
LOC: ER 22:22
DX: I63.9 Cerebral infarction, unspecified (principal); R07.9 Chest pain, unspecified; I11.0 Hypertensive heart disease with heart failure; I50.9 Heart failure, unspecified; E03.9 Hypothyroidism, unspecified; E78.5 Hyperlipidemia, unspecified; Z88.0 Allergy status to penicillin; Z88.8 Allergy status to other drugs, medicaments and biological substances; Z91.041 Radiographic dye allergy status; Z79.899 Other long term (current) drug therapy; Z79.02 Long term (current) use of antithrombotics/antiplatelets; Z87.440 Personal history of urinary (tract) infections
CPT/HCPCS: 36415; 70450; 71045; 80053; 81001; 82550; 82553; 83880; 84484; 85025; 85610; 85730; 93005; 99284; U0002

== ENCOUNTER 2021-10-08 17:08 | Emergency (ER) | payer BC, OTHER ==
[~2021-10-08] VITALS: Ht 160 cm; Wt 66.7 kg
[2021-10-08 19:42] VITALS: BP 142/84
== END 2021-10-08 19:47 | disposition home or self-care (01) ==
LOC: ER 17:15
DX: M79.671 Pain in right foot (principal); S92.354A Nondisplaced fracture of fifth metatarsal bone, right foot, initial encounter for closed fracture; X50.1XXA Overexertion from prolonged static or awkward postures, initial encounter; Y93.01 Activity, walking, marching and hiking; Y92.89 Other specified places as the place of occurrence of the external cause; I10 Essential (primary) hypertension; I50.9 Heart failure, unspecified; E78.5 Hyperlipidemia, unspecified; E03.9 Hypothyroidism, unspecified; K21.9 Gastro-esophageal reflux disease without esophagitis; F41.9 Anxiety disorder, unspecified; M54.9 Dorsalgia, unspecified; G89.29 Other chronic pain; Z95.5 Presence of coronary angioplasty implant and graft
CPT/HCPCS: 99283

== ENCOUNTER 2021-10-22 07:49 | Emergency (ER) | payer SELFPAY ==
[~2021-10-22] VITALS: Ht 160 cm; Wt 66.7 kg
[2021-10-22] MEDS ORDERED: DEXAMETHASONE 4 MG TAB PO STA (07:52)
[2021-10-22] MEDS ORDERED: LIDOCAINE 4% PATCH TP STA (07:52)
[2021-10-22] MEDS ORDERED: ACETAMINOPHEN 325 MG TAB PO ONE (08:00)
== END 2021-10-22 07:59 | disposition home or self-care (01) ==
LOC: ER 07:52
DX: M54.9 Dorsalgia, unspecified (principal); G89.29 Other chronic pain; I10 Essential (primary) hypertension; E78.5 Hyperlipidemia, unspecified; E03.9 Hypothyroidism, unspecified; I50.9 Heart failure, unspecified; K21.9 Gastro-esophageal reflux disease without esophagitis; F41.9 Anxiety disorder, unspecified
CPT/HCPCS: 99283

== ENCOUNTER 2022-07-10 10:30 | Inpatient (IN) | payer BC, OTHER ==
[~2022-07-10] VITALS: Ht 160 cm; Wt 70.3 kg
[2022-07-10] MEDS ORDERED: SODIUM CHLORIDE 0.9% 1000ML 1,000 ML IV STA (10:32)
[2022-07-10] MEDS ORDERED: ONDANSETRON HCL INJ 2MG/ML 2ML 2 MG/ML VIAL IV STA (10:32)
[2022-07-10 11:07] LABS: BASOPHILS # (AUTO) 0.2 (0.0-0.1); BASOPHILS % 3.1 % (0.0-1.0); EOSINOPHILS # (AUTO) 0.3 (0.0-0.4); EOSINOPHILS % 4.9 % (0.0-6.0); HEMATOCRIT 45.7 % (34.2-44.1); LYMPHOCYTES % 36.9 % (18.0-39.1); MEAN CORPUSCULAR HEMOGLOBIN 31.7 pg (28-32); MEAN CORPUSCULAR VOLUME 90.7 fL (81-99); MONOCYTES # (AUTO) 0.3 (0.2-0.8); NEUTROPHILS # (AUTO) 2.7 (2.1-6.9); NEUTROPHILS % 48.9 % (38.7-80.0); PLATELET COUNT 279 x10e3/uL (140-360); RED BLOOD COUNT 5.04 x10e6/uL (3.6-5.1); RED CELL DISTRIBUTION WIDTH 14.3 % (11.7-14.4)
[2022-07-10 11:14] LABS: INR 0.8; PROTHROMBIN TIME 11.6 seconds (11.9-14.5)
[2022-07-10 11:27] LABS: ALANINE AMINOTRANSFERASE 31 IU/L (0-55); ALBUMIN 4.6 g/dL (3.5-5.0); ALBUMIN/GLOBULIN RATIO 1.4 (0.8-2.0); ALKALINE PHOSPHATASE 78 IU/L (40-150); ANION GAP 16.9 mmol/L (8-16); BLOOD UREA NITROGEN 16 mg/dL (7-26); BUN/CREATININE RATIO 16 (6-25); CALCIUM 9.6 mg/dL (8.4-10.2); CARBON DIOXIDE 17 mmol/L (22-29); CHLORIDE 108 mmol/L (98-107); CREATININE, SERUM 1.01 mg/dL (0.57-1.11); GLUCOSE 97 mg/dL (74-118); LIPASE 44 U/L (8-78); MAGNESIUM 1.8 MG/DL (1.3-2.1); POTASSIUM 3.9 mmol/L (3.5-5.1); SODIUM 138 mmol/L (136-145)
[2022-07-10] MEDS ORDERED: ONDANSETRON HCL 4 MG ORAL DISINTEGRATING TAB PO ONE ×2 (11:30→12:30)
[2022-07-10] MEDS ORDERED: CLONIDINE HCL 0.1 MG TAB PO ONE (12:45)
[2022-07-10] MEDS ORDERED: CLONAZEPAM 1 MG TAB PO ONE (13:00)
[2022-07-10 13:11] LABS: THYROID STIMULATING HORMONE 166.072 uIU/mL (0.350-4.940)
[2022-07-10] MEDS: SODIUM CHLORIDE 0.9% 1000ML 1,000 ML IV SCH ×2 (13:15→14:20)
[2022-07-10 13:16] LABS: EOSINOPHILS % (MANUAL) 4 % (0-7); LYMPHOCYTES % (MANUAL) 36 % (19-48); MONOCYTES % (MANUAL) 12 % (3.4-9.0); NEUTROPHILS % (MANUAL) 46 % (40-74); PLATELET ESTIMATE ADEQUATE; PLATELET MORPHOLOGY COMMENT NORMAL; RBC MORPHOLOGY COMMENT NORMAL
[2022-07-10 13:49] LABS: CLARITY,URINE CLEAR (CLEAR); COLOR,URINE YELLOW (YELLOW); KETONES,URINE NEGATIVE (NEGATIVE); LEUKOCYTE ESTERASE ,URINE NEGATIVE (NEGATIVE); NITRITE,URINE NEGATIVE (NEGATIVE); PROTEIN,URINE DIPSTICK 2+ (NEGATIVE); URINE UROBILINOGEN 0.2 mg/dL (0.2 - 1)
[2022-07-10 13:51] LABS: AMPHETAMINES SCREEN,URINE NEGATIVE (NEGATIVE); BENZODIAZEPINES SCREEN,URINE NEGATIVE (NEGATIVE); PHENCYCLIDINE SCREEN,URINE NEGATIVE (NEGATIVE)
[2022-07-10 14:00] LABS: BACTERIA,URINE FEW /HPF; EPITHELIAL CELLS,URINE RARE /LPF; RBC,URINE 0-5 /HPF (0-5); WBC,URINE (MAN) 0-5 /HPF (0-5)
[2022-07-10] MEDS ORDERED: HYDRALAZINE HCL 20 MG/ML VIAL IV PRN (14:00)
[2022-07-10 14:07] LABS: FREE THYROXINE INDEX 0.4971 (1.4-3.8)
[2022-07-10] MEDS ORDERED: CLONIDINE HCL 0.1 MG/24 HR 1 EA PATCH TOP ONE (14:15)
[2022-07-10] MEDS ORDERED: SODIUM CHLORIDE 0.9% 1000ML 1,000 ML ONE (14:15)
[2022-07-10] MEDS ORDERED: LEVOTHYROXINE75 MCG PO (16:00)
[2022-07-10] MEDS ORDERED: LEVOTHYROXINE100 MC1 (16:00)
[2022-07-10] MEDS ORDERED: OXYCODONE HCL20 M1 PO (16:15)
[2022-07-10] MEDS ORDERED: KLONOPIN2 MG PO (16:15)
[2022-07-10] MEDS ORDERED: RESTORIL30 MG PO (16:16)
[2022-07-10] MEDS ORDERED: GABAPENTIN300 MG PO (16:23)
[2022-07-10 17:55] VITALS: BP 148/96
[2022-07-10 17:56] VITALS: BP 148/96
[2022-07-10 18:16] LABS: CREATINE KINASE 128 IU/L (29-168)
[2022-07-10 18:55] LABS: FREE T4 (FREE THYROXINE) < 0.40 ng/dL (0.8-1.8)
[2022-07-10 19:35] LABS: THYROID STIMULATING HORMONE 133.127 uIU/mL (0.350-4.940)
[2022-07-10 20:00] VITALS: BP 144/96
[2022-07-10] MEDS: Morphine 4mg INJECTION 4 MG/ML INJ IV PRN (20:52)
[2022-07-10] MEDS: ONDANSETRON HCL INJ 2MG/ML 2ML 2 MG/ML VIAL IV PRN (20:52)
[2022-07-10] MEDS ORDERED: NITROGLYCERIN 0.4 MG SUBL SL PRN (21:00)
[2022-07-10] MEDS ORDERED: CLONIDINE HCL 0.1 MG TAB PO SCH (22:00)
[2022-07-11] VITALS (8 sets, daily range): BP systolic 108–160; BP diastolic 79–96
[2022-07-11] MEDS: ATORVASTATIN 40 MG TAB PO SCH ×2 (00:39→20:16)
[2022-07-11] MEDS: GABAPENTIN 300 MG CAP PO SCH ×4 (00:40→20:15)
[2022-07-11] MEDS: TEMAZEPAM 15 MG CAP PO PRN ×2 (00:40→21:54)
[2022-07-11] MEDS: VALACYCLOVIR HCL 500 MG TAB PO SCH ×4 (00:41→20:16)
[2022-07-11] MEDS ORDERED: ACETAMINOPHEN 325 MG TAB PO PRN (01:00)
[2022-07-11] MEDS ORDERED: HYDRALAZINE HCL 20 MG/ML VIAL IV PRN (01:00)
[2022-07-11] MEDS: SODIUM CHLORIDE 0.9% 1000ML 1,000 ML IV SCH ×4 (02:35→20:17)
[2022-07-11] MEDS: LEVOTHYROXINE SODIUM 125 MCG TAB PO SCH (05:12)
[2022-07-11] MEDS: LEVOTHYROXINE SODIUM 50 MCG TAB PO SCH (05:12)
[2022-07-11] MEDS: Morphine 4mg INJECTION 4 MG/ML INJ IV PRN ×4 (05:47→20:16)
[2022-07-11] MEDS: ONDANSETRON HCL INJ 2MG/ML 2ML 2 MG/ML VIAL IV PRN ×4 (05:47→20:17)
[2022-07-11 06:39] LABS: BASOPHILS # (AUTO) 0.1 (0.0-0.1); BASOPHILS % 2.1 % (0.0-1.0); EOSINOPHILS # (AUTO) 0.3 (0.0-0.4); EOSINOPHILS % 4.3 % (0.0-6.0); HEMATOCRIT 38.4 % (34.2-44.1); HEMOGLOBIN 13.3 g/dL (12.0-16.0); LYMPHOCYTES % 50.7 % (18.0-39.1); MEAN CORPUSCULAR HEMOGLOBIN 32.1 pg (28-32); MEAN CORPUSCULAR HGB CONC 34.6 g/dL (31-35); MEAN CORPUSCULAR VOLUME 92.8 fL (81-99); MONOCYTES # (AUTO) 0.4 (0.2-0.8); NEUTROPHILS # (AUTO) 2.1 (2.1-6.9); NEUTROPHILS % 35.7 % (38.7-80.0); PLATELET COUNT 269 x10e3/uL (140-360); RED BLOOD COUNT 4.14 x10e6/uL (3.6-5.1); RED CELL DISTRIBUTION WIDTH 14.5 % (11.7-14.4)
[2022-07-11 07:10] LABS: ALBUMIN 3.5 g/dL (3.5-5.0); ALBUMIN/GLOBULIN RATIO 1.4 (0.8-2.0); ANION GAP 12.5 mmol/L (8-16); CALCIUM 8.7 mg/dL (8.4-10.2); CREATININE, SERUM 0.94 mg/dL (0.57-1.11); POTASSIUM 3.5 mmol/L (3.5-5.1)
[2022-07-11 07:55] LABS: CREATINE KINASE 108 IU/L (29-168)
[2022-07-11] MEDS: AMLODIPINE BESYLATE 5 MG TAB PO SCH (09:10)
[2022-07-11] MEDS: PANTOPRAZOLE SOD 40 MG TABEC PO SCH (09:10)
[2022-07-11] MEDS: CLOPIDOGREL BISULFATE 75 MG TAB PO SCH (09:10)
[2022-07-11] MEDS: METOPROLOL SUCCINATE 25 MG TAB XL PO SCH (09:11)
[2022-07-11] MEDS: CLONAZEPAM 1 MG TAB PO PRN ×2 (09:11→18:21)
[2022-07-11] MEDS ORDERED: MAGNESIUM OXIDE 400 MG TAB PO ONE (12:00)
[2022-07-11 14:51] LABS: CREATINE KINASE 127 IU/L (29-168)
[2022-07-12] VITALS (7 sets, daily range): BP systolic 121–140; BP diastolic 69–98
[2022-07-12] MEDS: ONDANSETRON HCL INJ 2MG/ML 2ML 2 MG/ML VIAL IV PRN ×4 (04:23→21:47)
[2022-07-12] MEDS: Morphine 4mg INJECTION 4 MG/ML INJ IV PRN ×4 (04:23→21:47)
[2022-07-12] MEDS: LEVOTHYROXINE SODIUM 125 MCG TAB PO SCH (04:40)
[2022-07-12] MEDS: LEVOTHYROXINE SODIUM 50 MCG TAB PO SCH (04:40)
[2022-07-12 05:11] LABS: BASOPHILS # (AUTO) 0.1 (0.0-0.1); BASOPHILS % 2.1 % (0.0-1.0); EOSINOPHILS # (AUTO) 0.2 (0.0-0.4); HEMATOCRIT 36.4 % (34.2-44.1); LYMPHOCYTES # (AUTO) 2.3 (1.0-3.2); LYMPHOCYTES % 43.6 % (18.0-39.1); MEAN CORPUSCULAR HEMOGLOBIN 31.8 pg (28-32); MEAN CORPUSCULAR VOLUME 96.6 fL (81-99); MONOCYTES # (AUTO) 0.4 (0.2-0.8); MONOCYTES % 7.5 % (4.4-11.3); NEUTROPHILS # (AUTO) 2.2 (2.1-6.9); NEUTROPHILS % 42.6 % (38.7-80.0); PLATELET COUNT 231 x10e3/uL (140-360); RED BLOOD COUNT 3.77 x10e6/uL (3.6-5.1); RED CELL DISTRIBUTION WIDTH 14.4 % (11.7-14.4)
[2022-07-12] MEDS: SODIUM CHLORIDE 0.9% 1000ML 1,000 ML IV SCH ×3 (05:15→20:17)
[2022-07-12] MEDS: VALACYCLOVIR HCL 500 MG TAB PO SCH ×3 (05:20→21:00)
[2022-07-12] MEDS: CLONAZEPAM 1 MG TAB PO PRN ×2 (05:20→13:58)
[2022-07-12 05:41] LABS: ALBUMIN 3.2 g/dL (3.5-5.0); ALBUMIN/GLOBULIN RATIO 1.3 (0.8-2.0); CALCIUM 8.9 mg/dL (8.4-10.2); CREATININE, SERUM 1.34 mg/dL (0.57-1.11); MAGNESIUM 1.6 MG/DL (1.3-2.1)
[2022-07-12] MEDS ORDERED: MAGNESIUM SULFATE 2GM/50ML 50 ML IV ONE (09:00)
[2022-07-12] MEDS: GABAPENTIN 300 MG CAP PO SCH ×3 (09:40→21:00)
[2022-07-12] MEDS: CLOPIDOGREL BISULFATE 75 MG TAB PO SCH (09:41)
[2022-07-12] MEDS: PANTOPRAZOLE SOD 40 MG TABEC PO SCH (09:41)
[2022-07-12] MEDS: AMLODIPINE BESYLATE 5 MG TAB PO SCH (09:41)
[2022-07-12] MEDS: METOPROLOL SUCCINATE 25 MG TAB XL PO SCH (09:42)
[2022-07-12 14:58] LABS: CALCIUM 8.9 mg/dL (8.4-10.2); CREATININE, SERUM 1.14 mg/dL (0.57-1.11)
[2022-07-12] MEDS: ATORVASTATIN 40 MG TAB PO SCH (21:00)
[2022-07-12] MEDS: TEMAZEPAM 15 MG CAP PO PRN (21:45)
[2022-07-13] MEDS: ONDANSETRON HCL INJ 2MG/ML 2ML 2 MG/ML VIAL IV PRN ×4 (02:21→21:07)
[2022-07-13] MEDS: Morphine 4mg INJECTION 4 MG/ML INJ IV PRN ×4 (02:22→21:07)
[2022-07-13] MEDS: CLONAZEPAM 1 MG TAB PO PRN ×3 (02:29→18:55)
[2022-07-13] MEDS: SODIUM CHLORIDE 0.9% 1000ML 1,000 ML IV SCH ×2 (04:14→15:15)
[2022-07-13 05:32] LABS: BASOPHILS # (AUTO) 0.1 (0.0-0.1); BASOPHILS % 2.2 % (0.0-1.0); EOSINOPHILS # (AUTO) 0.2 (0.0-0.4); EOSINOPHILS % 5.3 % (0.0-6.0); HEMATOCRIT 32.1 % (34.2-44.1); HEMOGLOBIN 10.8 g/dL (12.0-16.0); LYMPHOCYTES # (AUTO) 1.9 (1.0-3.2); LYMPHOCYTES % 42.5 % (18.0-39.1); MEAN CORPUSCULAR HEMOGLOBIN 31.8 pg (28-32); MEAN CORPUSCULAR HGB CONC 33.6 g/dL (31-35); MEAN CORPUSCULAR VOLUME 94.4 fL (81-99); MONOCYTES # (AUTO) 0.4 (0.2-0.8); MONOCYTES % 9.6 % (4.4-11.3); NEUTROPHILS # (AUTO) 1.8 (2.1-6.9); NEUTROPHILS % 40.2 % (38.7-80.0); PLATELET COUNT 215 x10e3/uL (140-360); RED CELL DISTRIBUTION WIDTH 14.5 % (11.7-14.4)
[2022-07-13] MEDS: VALACYCLOVIR HCL 500 MG TAB PO SCH ×3 (05:46→22:00)
[2022-07-13] MEDS: LEVOTHYROXINE SODIUM 125 MCG TAB PO SCH (05:46)
[2022-07-13] MEDS: LEVOTHYROXINE SODIUM 50 MCG TAB PO SCH (05:46)
[2022-07-13 06:29] LABS: ALBUMIN 3.2 g/dL (3.5-5.0); ALBUMIN/GLOBULIN RATIO 1.5 (0.8-2.0); ANION GAP 14.7 mmol/L (8-16); CALCIUM 8.7 mg/dL (8.4-10.2); CREATININE, SERUM 0.95 mg/dL (0.57-1.11); MAGNESIUM 1.7 MG/DL (1.3-2.1); POTASSIUM 3.7 mmol/L (3.5-5.1)
[2022-07-13 07:21] LABS: FREE T4 (FREE THYROXINE) 0.67 ng/dL (0.8-1.8)
[2022-07-13 07:59] LABS: THYROID STIMULATING HORMONE 93.617 uIU/mL (0.350-4.940)
[2022-07-13 08:08] VITALS: BP 130/87
[2022-07-13 09:00] VITALS: BP 130/87
[2022-07-13] MEDS: METOPROLOL SUCCINATE 25 MG TAB XL PO SCH (09:00)
[2022-07-13] MEDS: GABAPENTIN 300 MG CAP PO SCH ×3 (09:01→21:06)
[2022-07-13] MEDS: PANTOPRAZOLE SOD 40 MG TABEC PO SCH (09:01)
[2022-07-13] MEDS: CLOPIDOGREL BISULFATE 75 MG TAB PO SCH (09:01)
[2022-07-13] MEDS: AMLODIPINE BESYLATE 5 MG TAB PO SCH (09:01)
[2022-07-13 11:43] VITALS: BP 126/83
[2022-07-13] MEDS: OXYCODONE HCL IR 5 MG TAB PO PRN (12:48)
[2022-07-13] MEDS ORDERED: LIDOCAINE HCL 5% OINMENT 35.44 GM TUBE TP PRN (13:45)
[2022-07-13 15:14] LABS: HEMATOCRIT 31.6 % (34.2-44.1); HEMOGLOBIN 10.7 g/dL (12.0-16.0)
[2022-07-13 16:22] VITALS: BP 169/95
[2022-07-13 20:00] VITALS: BP 169/95
[2022-07-13] MEDS: ATORVASTATIN 40 MG TAB PO SCH (21:06)
[2022-07-13] MEDS: TEMAZEPAM 15 MG CAP PO PRN (21:06)
[2022-07-14] MEDS: Morphine 2mg Syringe 2 MG/ML SYR IV PRN ×2 (00:05→05:44)
[2022-07-14] MEDS: ONDANSETRON HCL INJ 2MG/ML 2ML 2 MG/ML VIAL IV PRN ×2 (00:05→05:43)
[2022-07-14] MEDS: SODIUM CHLORIDE 0.9% 1000ML 1,000 ML IV SCH (01:34)
[2022-07-14] MEDS: LEVOTHYROXINE SODIUM 50 MCG TAB PO SCH (05:44)
[2022-07-14] MEDS: LEVOTHYROXINE SODIUM 125 MCG TAB PO SCH (05:44)
[2022-07-14] MEDS: VALACYCLOVIR HCL 500 MG TAB PO SCH (05:44)
[2022-07-14] MEDS: CLONAZEPAM 1 MG TAB PO PRN (06:09)
[2022-07-14 06:26] LABS: BASOPHILS # (AUTO) 0.1 (0.0-0.1); BASOPHILS % 1.7 % (0.0-1.0); EOSINOPHILS # (AUTO) 0.3 (0.0-0.4); EOSINOPHILS % 5.4 % (0.0-6.0); HEMATOCRIT 33.6 % (34.2-44.1); LYMPHOCYTES # (AUTO) 2.3 (1.0-3.2); LYMPHOCYTES % 45.2 % (18.0-39.1); MEAN CORPUSCULAR HEMOGLOBIN 32.2 pg (28-32); MEAN CORPUSCULAR HGB CONC 32.7 g/dL (31-35); MEAN CORPUSCULAR VOLUME 98.2 fL (81-99); MONOCYTES # (AUTO) 0.5 (0.2-0.8); MONOCYTES % 9.5 % (4.4-11.3); PLATELET COUNT 204 x10e3/uL (140-360); RED BLOOD COUNT 3.42 x10e6/uL (3.6-5.1); RED CELL DISTRIBUTION WIDTH 14.4 % (11.7-14.4)
[2022-07-14 06:44] LABS: ALBUMIN 3.2 g/dL (3.5-5.0); ALBUMIN/GLOBULIN RATIO 1.3 (0.8-2.0); ANION GAP 13.1 mmol/L (8-16); CALCIUM 8.9 mg/dL (8.4-10.2); CREATININE, SERUM 0.91 mg/dL (0.57-1.11); MAGNESIUM 1.7 MG/DL (1.3-2.1); POTASSIUM 4.1 mmol/L (3.5-5.1)
[2022-07-14 07:05] LABS: FERRITIN 47.21 ng/mL (4.63-204.00)
[2022-07-14 07:09] LABS: FREE T4 (FREE THYROXINE) 0.73 ng/dL (0.8-1.8); THYROID STIMULATING HORMONE 95.712 uIU/mL (0.350-4.940)
[2022-07-14 08:01] VITALS: BP 142/80
[2022-07-14] MEDS: AMLODIPINE BESYLATE 5 MG TAB PO SCH (08:22)
[2022-07-14] MEDS: PANTOPRAZOLE SOD 40 MG TABEC PO SCH (08:22)
[2022-07-14] MEDS: CLOPIDOGREL BISULFATE 75 MG TAB PO SCH (08:22)
[2022-07-14] MEDS: GABAPENTIN 300 MG CAP PO SCH (08:22)
[2022-07-14] MEDS: METOPROLOL SUCCINATE 25 MG TAB XL PO SCH (08:23)
[2022-07-14] MEDS: OXYCODONE HCL IR 5 MG TAB PO PRN (08:24)
[2022-07-14] MEDS ORDERED: LEVOTHYROXINE75 MCG PO (08:51)
[2022-07-14] MEDS ORDERED: LIDOCAINE1 EA TP (08:51)
[2022-07-14] MEDS ORDERED: GABAPENTIN300 MG PO (08:51)
[2022-07-14] MEDS ORDERED: LEVOTHYROXINE200 MCG PO (08:51)
[2022-07-14] MEDS ORDERED: VALTREX500 MG PO (08:51)
[2022-07-14 09:00] VITALS: BP 142/8
[2022-07-14] MEDS ORDERED: KLONOPIN2 MG PO (09:16)
[2022-07-14] MEDS ORDERED: RESTORIL30 MG PO (09:16)
[2022-07-14] MEDS ORDERED: OXYCODONE HCL20 M1 PO (09:16)
== END 2022-07-14 09:50 | disposition home or self-care (01) | DRG 644 ==
LOC: ER 10:33 → ERHOLD 13:12 → MED/SURG 15:22
PROVIDERS: ADMIT Internal Medicine; ATTEND Internal Medicine
PROC: 02HV33Z Insertion of Infusion Device into Superior Vena Cava, Percutaneous Approach (ICD-10-PCS; principal; 2022-07-10)
DX: E03.9 Hypothyroidism, unspecified (principal); K56.7 Ileus, unspecified; N17.9 Acute kidney failure, unspecified; B02.9 Zoster without complications; I16.0 Hypertensive urgency; I25.10 Atherosclerotic heart disease of native coronary artery without angina pectoris; E78.2 Mixed hyperlipidemia; K21.9 Gastro-esophageal reflux disease without esophagitis; F33.41 Major depressive disorder, recurrent, in partial remission; Z20.822 Contact with and (suspected) exposure to COVID-19; I11.0 Hypertensive heart disease with heart failure; I50.9 Heart failure, unspecified; G43.909 Migraine, unspecified, not intractable, without status migrainosus; F41.9 Anxiety disorder, unspecified; E78.5 Hyperlipidemia, unspecified; M54.9 Dorsalgia, unspecified; G89.29 Other chronic pain; Z87.891 Personal history of nicotine dependence; Z88.0 Allergy status to penicillin; E86.0 Dehydration
CPT/HCPCS: 36415; 36569; 71045; 74176; 80048; 80053; 80307; 81001; 82550; 82553; 82607; 82728; 82746; 83540; 83690; 83735; 84436; 84439; 84443; 84466; 84479; 84480; 84481; 84484; 85014; 85018; 85025; 85610; 93005; 99284; J2270; J2405; J3475; J7030; Q0162

== ENCOUNTER 2023-07-27 17:57 | Emergency (ER) | payer SELFPAY ==
[~2023-07-27] VITALS: Ht 160 cm; Wt 70.3 kg
[~2023-07-27 17:57] MED LIST changes: +BACITRACIN ZINC 0.9GM TP ONE; +DICYCLOMINE HCL20 MG PO; +GABAPENTIN300 MG PO; +KLONOPIN2 MG PO; +LEVOTHYROXINE100 MC1; +LEVOTHYROXINE200 MCG PO; +LEVOTHYROXINE75 MCG PO; +LIDOCAINE1 EA TP; +SYNTHROID100 MCG PO; +VALTREX500 MG PO
[2023-07-27 18:48] VITALS: O2SAT 98
[2023-07-27] MEDS ORDERED: BACITRACIN ZINC 0.9GM TP ONE (19:03)
[2023-07-27] MEDS: BACITRACIN ZINC 15 GM OINT TOP STA (19:52)
[2023-07-27] MEDS ORDERED: CLEOCIN HCL300 MG PO (19:54)
== END 2023-07-27 19:45 | disposition home or self-care (01) ==
LOC: ER 18:50
DX: S61.307A Unspecified open wound of left little finger with damage to nail, initial encounter (principal); W18.39XA Other fall on same level, initial encounter; Y93.01 Activity, walking, marching and hiking; Y92.89 Other specified places as the place of occurrence of the external cause; I10 Essential (primary) hypertension; I50.9 Heart failure, unspecified; E03.9 Hypothyroidism, unspecified; I25.10 Atherosclerotic heart disease of native coronary artery without angina pectoris; E78.5 Hyperlipidemia, unspecified; K21.9 Gastro-esophageal reflux disease without esophagitis; F41.9 Anxiety disorder, unspecified; M54.9 Dorsalgia, unspecified; G89.29 Other chronic pain; I25.2 Old myocardial infarction; Z86.73 Personal history of transient ischemic attack (TIA), and cerebral infarction without residual deficits; Z95.5 Presence of coronary angioplasty implant and graft
CPT/HCPCS: 99282

== ENCOUNTER 2024-08-10 14:28 | Inpatient (IN) | payer SELFPAY ==
[~2024-08-10] VITALS: Ht 160 cm; Wt 69.2 kg
[~2024-08-10 14:28] MED LIST changes: -BACITRACIN ZINC 0.9GM TP ONE; +CLEOCIN HCL300 MG PO
[2024-08-10 16:18] LABS: BASOPHILS # (AUTO) 0.1 (0.0-0.1); BASOPHILS % 2.2 % (0.0-1.0); EOSINOPHILS # (AUTO) 0.3 (0.0-0.4); EOSINOPHILS % 4.7 % (0.0-6.0); HEMATOCRIT 41.4 % (34.2-44.1); HEMOGLOBIN 14.6 g/dL (12.0-16.0); LYMPHOCYTES # (AUTO) 2.2 (1.0-3.2); LYMPHOCYTES % 38.8 % (18.0-39.1); MEAN CORPUSCULAR HEMOGLOBIN 33.7 pg (28-32); MEAN CORPUSCULAR HGB CONC 35.3 g/dL (31-35); MEAN CORPUSCULAR VOLUME 95.6 fL (81-99); MONOCYTES # (AUTO) 0.3 (0.2-0.8); MONOCYTES % 5.4 % (4.4-11.3); NEUTROPHILS # (AUTO) 2.7 (2.1-6.9); NEUTROPHILS % 48.7 % (38.7-80.0); PLATELET COUNT 262 x10e3/uL (140-360); RED BLOOD COUNT 4.33 x10e6/uL (3.6-5.1); RED CELL DISTRIBUTION WIDTH 13.6 % (11.7-14.4); WHITE BLOOD COUNT 5.56 x10e3/uL (4.8-10.8)
[2024-08-10 16:33] LABS: INR 0.87; PROTHROMBIN TIME 12.4 seconds (11.9-14.5)
[2024-08-10 16:34] LABS: PARTIAL THROMBOPLASTIN TIME 33.2 seconds (23.8-35.5)
[2024-08-10 16:35] LABS: ALBUMIN 4.8 g/dL (3.5-5.0); ALBUMIN/GLOBULIN RATIO 1.5 (0.8-2.0); ANION GAP 16.2 mmol/L (8-16); BILIRUBIN,TOTAL 0.6 mg/dL (0.2-1.2); CALCIUM 9.4 mg/dL (8.4-10.2); CREATININE, SERUM 1.3 mg/dL (0.57-1.11); MAGNESIUM 1.9 MG/DL (1.3-2.1); TOTAL PROTEIN 7.9 g/dL (6.5-8.1)
[2024-08-10 16:36] LABS: POTASSIUM 3.2 mmol/L (3.5-5.1)
[2024-08-10] MEDS: ONDANSETRON HCL INJ 2MG/ML 2ML 2 MG/ML VIAL IV STA ×2 (16:46)
[2024-08-10] MEDS: SODIUM CHLORIDE 0.9% 1000ML 1,000 ML IV STA (16:47)
[2024-08-10] MEDS: CLONIDINE HCL 0.1 MG TAB PO ONE (16:47)
[2024-08-10] MEDS: Morphine 4mg INJECTION 4 MG/ML INJ IV STA (16:48)
[2024-08-10 16:55] LABS: TROPONIN I 0.003 ng/mL (0-0.300)
[2024-08-10 17:12] LABS: CLARITY,URINE CLEAR (CLEAR); COLOR,URINE YELLOW (YELLOW)
[2024-08-10 17:13] LABS: BILIRUBIN,URINE NEGATIVE (NEGATIVE); GLUCOSE, URINE NEGATIVE (NEGATIVE); KETONES,URINE NEGATIVE (NEGATIVE); LEUKOCYTE ESTERASE ,URINE TRACE (NEGATIVE); NITRITE,URINE NEGATIVE (NEGATIVE); PH,URINE 6.5 (5 - 7); PROTEIN,URINE DIPSTICK 2+ (NEGATIVE); URINE UROBILINOGEN 0.2 mg/dL (0.2 - 1)
[2024-08-10] MEDS: HYDRALAZINE HCL 20 MG/ML VIAL IV STA (17:24)
[2024-08-10 17:36] LABS: BACTERIA,URINE RARE /HPF; EPITHELIAL CELLS,URINE RARE /LPF
[2024-08-10 17:57] LABS: THYROID STIMULATING HORMONE 220.254 uIU/mL (0.350-4.940)
[2024-08-10 18:33] VITALS: PULSE 79; RESP 15
[2024-08-10 19:03] LABS: T3 UPTAKE 24.02 % (22.5-37.0)
[2024-08-10] MEDS: SODIUM CHLORIDE 0.9% 1000ML 1,000 ML IV SCH (19:28)
[2024-08-10] MEDS: ASPIRIN 81 MG CHEW TAB PO ONE (19:28)
[2024-08-10 19:29] VITALS: TEMP 98.3
[2024-08-10 19:45] LABS: FREE THYROXINE INDEX 0.2185795 (1.4-3.8); T4 (THYROXINE) < 0.91 ug/dL (4.5-10.9)
[2024-08-10 20:11] VITALS: BP 132/89; PULSE 70; RESP 20; TEMP 97.7; O2SAT 100
[2024-08-10 21:00] VITALS: BP 132/83; PULSE 70; RESP 20; TEMP 97.7; O2SAT 97
[2024-08-10 21:41] VITALS: BP 132/89; PULSE 70; RESP 20; TEMP 97.7; O2SAT 100
[2024-08-10] MEDS: ONDANSETRON HCL INJ 2MG/ML 2ML 2 MG/ML VIAL IV PRN (23:05)
[2024-08-10] MEDS: Morphine 4mg INJECTION 4 MG/ML INJ IV PRN (23:06)
[2024-08-10] MEDS ORDERED: NITROGLYCERIN 0.4 MG SUBL SL PRN (23:15)
[2024-08-10] MEDS ORDERED: TEMAZEPAM 15 MG CAP PO PRN (23:15)
[2024-08-10] MEDS: LEVOTHYROXINE SODIUM 125 MCG TAB PO ONE (23:17)
[2024-08-11] VITALS (8 sets, daily range): BP systolic 119–156; BP diastolic 83–108; PULSE 52–65; RESP 17–20; TEMP 97.7–98.2; O2SAT 97–100
[2024-08-11] MEDS: LEVOTHYROXINE SODIUM 125 MCG TAB ONE (01:30)
[2024-08-11 05:10] LABS: T3 (TRIIODOTHYRONINE) <20 ng/dL (71-180)
[2024-08-11 05:46] LABS: BASOPHILS # (AUTO) 0.1 (0.0-0.1); BASOPHILS % 2.5 % (0.0-1.0); EOSINOPHILS # (AUTO) 0.3 (0.0-0.4); EOSINOPHILS % 6.2 % (0.0-6.0); HEMATOCRIT 35.9 % (34.2-44.1); HEMOGLOBIN 12.3 g/dL (12.0-16.0); LYMPHOCYTES # (AUTO) 2.5 (1.0-3.2); LYMPHOCYTES % 47.5 % (18.0-39.1); MEAN CORPUSCULAR HEMOGLOBIN 33.9 pg (28-32); MEAN CORPUSCULAR HGB CONC 34.3 g/dL (31-35); MEAN CORPUSCULAR VOLUME 98.9 fL (81-99); MONOCYTES # (AUTO) 0.3 (0.2-0.8); MONOCYTES % 6.5 % (4.4-11.3); NEUTROPHILS # (AUTO) 1.9 (2.1-6.9); NEUTROPHILS % 37.3 % (38.7-80.0); PLATELET COUNT 196 x10e3/uL (140-360); RED BLOOD COUNT 3.63 x10e6/uL (3.6-5.1); RED CELL DISTRIBUTION WIDTH 13.7 % (11.7-14.4)
[2024-08-11 06:04] LABS: ALBUMIN 3.3 g/dL (3.5-5.0); ALBUMIN/GLOBULIN RATIO 1.3 (0.8-2.0); ANION GAP 12.7 mmol/L (8-16); BILIRUBIN,TOTAL 0.6 mg/dL (0.2-1.2); CALCIUM 8.1 mg/dL (8.4-10.2); CHOL/HDL RATIO 4.7 (3.0-3.6); CREATININE, SERUM 1.22 mg/dL (0.57-1.11); POTASSIUM 3.7 mmol/L (3.5-5.1); TOTAL PROTEIN 5.8 g/dL (6.5-8.1)
[2024-08-11 06:22] LABS: TROPONIN I 0.01 ng/mL (0-0.300)
[2024-08-11] MEDS: ASPIRIN 81 MG ENTERIC COATED PO SCH (08:15)
[2024-08-11] MEDS: LEVOTHYROXINE SODIUM 100 MCG TAB PO SCH (08:15)
[2024-08-11] MEDS: CLOPIDOGREL BISULFATE 75 MG TAB PO SCH (08:16)
[2024-08-11] MEDS: METOPROLOL SUCCINATE 25 MG TAB XL PO SCH (08:19)
[2024-08-11] MEDS ORDERED: METOPROLOL SUCCINATE 25 MG TAB XL PO SCH (09:00)
[2024-08-11] MEDS: CYCLOBENZAPRINE HCL 10 MG TAB PO PRN (10:27)
[2024-08-11] MEDS: ALPRAZOLAM 0.5 MG TAB PO PRN (11:51)
[2024-08-11] MEDS ORDERED: SIMETHICONE 80 MG CHEW PO PRN (13:30)
[2024-08-11] MEDS ORDERED: CALCIUM CARBONATE 500 MG CHEWABLE TABS PO PRN (13:30)
[2024-08-11 15:37] LABS: TROPONIN I 0.004 ng/mL (0-0.300)
[2024-08-11] MEDS ORDERED: LEVOTHYROXINE SODIUM 100 MCG/VIAL IV SCH (16:00)
[2024-08-11 16:13] LABS: FREE T4 (FREE THYROXINE) 0.45 ng/dL (0.8-1.8)
[2024-08-11] MEDS: SODIUM CHLORIDE 0.9% INJ 10 ML VIAL IV SCH (17:00)
[2024-08-11] MEDS: LEVOTHYROXINE SODIUM 100 MCG/VIAL IV SCH (17:00)
[2024-08-11 17:04] LABS: THYROID STIMULATING HORMONE 214.017 uIU/mL (0.350-4.940)
[2024-08-11] MEDS: LOSARTAN POTASSIUM 25 MG TAB PO SCH (21:00)
[2024-08-11] MEDS: ATORVASTATIN 40 MG TAB PO SCH (21:50)
[2024-08-11] MEDS ORDERED: ACETAMINOPHEN 325 MG TAB PO PRN (22:15)
[2024-08-12] VITALS (8 sets, daily range): BP systolic 143–152; BP diastolic 89–102; PULSE 58–115; RESP 18–20; TEMP 97.7–98.6; O2SAT 95–100
[2024-08-12 06:38] LABS: BASOPHILS # (AUTO) 0.1 (0.0-0.1); BASOPHILS % 1.9 % (0.0-1.0); EOSINOPHILS # (AUTO) 0.4 (0.0-0.4); EOSINOPHILS % 6.6 % (0.0-6.0); HEMATOCRIT 38.2 % (34.2-44.1); HEMOGLOBIN 13.2 g/dL (12.0-16.0); LYMPHOCYTES # (AUTO) 2.5 (1.0-3.2); LYMPHOCYTES % 38.7 % (18.0-39.1); MEAN CORPUSCULAR HGB CONC 34.6 g/dL (31-35); MEAN CORPUSCULAR VOLUME 98.5 fL (81-99); MONOCYTES # (AUTO) 0.4 (0.2-0.8); NEUTROPHILS % 46.6 % (38.7-80.0); PLATELET COUNT 204 x10e3/uL (140-360); RED BLOOD COUNT 3.88 x10e6/uL (3.6-5.1); WHITE BLOOD COUNT 6.38 x10e3/uL (4.8-10.8)
[2024-08-12 07:01] LABS: ALBUMIN 3.6 g/dL (3.5-5.0); ALBUMIN/GLOBULIN RATIO 1.3 (0.8-2.0); ANION GAP 12.9 mmol/L (8-16); BILIRUBIN,TOTAL 0.3 mg/dL (0.2-1.2); CALCIUM 9.4 mg/dL (8.4-10.2); CREATININE, SERUM 1.42 mg/dL (0.57-1.11); MAGNESIUM 1.8 MG/DL (1.3-2.1); POTASSIUM 3.9 mmol/L (3.5-5.1); TOTAL PROTEIN 6.4 g/dL (6.5-8.1)
[2024-08-12] MEDS: SENNOSIDES 8.6 MG TAB PO SCH (09:00)
[2024-08-12] MEDS: DOCUSATE SODIUM 100 MG CAP PO SCH (09:00)
[2024-08-12 10:51] LABS: FREE THYROXINE INDEX 0.6609 (1.4-3.8); T3 UPTAKE 27.89 % (22.5-37.0)
[2024-08-12 11:08] LABS: T4 (THYROXINE) 2.37 ug/dL (4.5-10.9)
[2024-08-12 11:35] LABS: THYROID STIMULATING HORMONE 239.121 uIU/mL (0.350-4.940)
[2024-08-12] MEDS: AMLODIPINE BESYLATE 5 MG TAB PO SCH (15:08)
[2024-08-12] MEDS: ENOXAPARIN SOD INJ 40 MG/0.4 ML SYR SC SCH (17:20)
[2024-08-12] MEDS: POLYETHYLENE GLYCOL 3350 17 GM PACK PO PRN (21:25)
[2024-08-13 03:12] VITALS: BP 146/102; PULSE 67; RESP 18; TEMP 98.2; O2SAT 96
[2024-08-13 08:44] VITALS: BP 168/101; PULSE 76; RESP 18; TEMP 97.7; O2SAT 99
[2024-08-13 10:25] VITALS: BP 168/101; PULSE 76; RESP 18; TEMP 97.7; O2SAT 99
[2024-08-13 12:02] VITALS: BP 145/118; PULSE 69; RESP 18; TEMP 98.2; O2SAT 96
[2024-08-13 15:42] VITALS: BP 133/92; PULSE 64; RESP 18; TEMP 97.5; O2SAT 97
[2024-08-13 16:49] LABS: ANION GAP 15.9 mmol/L (8-16); CALCIUM 9.2 mg/dL (8.4-10.2); CREATININE, SERUM 1.46 mg/dL (0.57-1.11); POTASSIUM 3.9 mmol/L (3.5-5.1)
[2024-08-13 17:13] LABS: TROPONIN I 0.007 ng/mL (0-0.300)
[2024-08-13] MEDS: AMLODIPINE BESYLATE 5 MG TAB PO SCH (17:17)
[2024-08-14] VITALS (9 sets, daily range): BP systolic 115–157; BP diastolic 58–90; PULSE 59–88; RESP 17–20; TEMP 97.1–98.3; O2SAT 93–98
[2024-08-14 05:31] LABS: BASOPHILS # (AUTO) 0.1 (0.0-0.1); BASOPHILS % 2.4 % (0.0-1.0); EOSINOPHILS # (AUTO) 0.3 (0.0-0.4); EOSINOPHILS % 6.7 % (0.0-6.0); HEMATOCRIT 34.9 % (34.2-44.1); HEMOGLOBIN 12.3 g/dL (12.0-16.0); LYMPHOCYTES # (AUTO) 2.2 (1.0-3.2); LYMPHOCYTES % 43.1 % (18.0-39.1); MEAN CORPUSCULAR HGB CONC 35.2 g/dL (31-35); MEAN CORPUSCULAR VOLUME 96.4 fL (81-99); MONOCYTES # (AUTO) 0.4 (0.2-0.8); MONOCYTES % 8.3 % (4.4-11.3); NEUTROPHILS % 39.3 % (38.7-80.0); PLATELET COUNT 178 x10e3/uL (140-360); RED BLOOD COUNT 3.62 x10e6/uL (3.6-5.1); RED CELL DISTRIBUTION WIDTH 13.8 % (11.7-14.4); WHITE BLOOD COUNT 5.04 x10e3/uL (4.8-10.8)
[2024-08-14 06:06] LABS: ANION GAP 14.7 mmol/L (8-16); CALCIUM 9.3 mg/dL (8.4-10.2); CREATININE, SERUM 1.4 mg/dL (0.57-1.11); POTASSIUM 3.7 mmol/L (3.5-5.1)
[2024-08-14] MEDS: LEVOTHYROXINE SODIUM 100 MCG/VIAL IV SCH (09:45)
[2024-08-14] MEDS: SODIUM CHLORIDE 0.9% INJ 10 ML VIAL IV SCH (09:49)
[2024-08-15] VITALS (8 sets, daily range): BP systolic 121–165; BP diastolic 77–109; PULSE 57–83; RESP 16–19; TEMP 97.6–98.5; O2SAT 17–100
[2024-08-15 06:21] LABS: BASOPHILS # (AUTO) 0.1 (0.0-0.1); BASOPHILS % 2.3 % (0.0-1.0); EOSINOPHILS # (AUTO) 0.4 (0.0-0.4); EOSINOPHILS % 8.4 % (0.0-6.0); HEMATOCRIT 36.9 % (34.2-44.1); HEMOGLOBIN 12.7 g/dL (12.0-16.0); LYMPHOCYTES # (AUTO) 2.4 (1.0-3.2); LYMPHOCYTES % 51.2 % (18.0-39.1); MEAN CORPUSCULAR HEMOGLOBIN 33.9 pg (28-32); MEAN CORPUSCULAR HGB CONC 34.4 g/dL (31-35); MEAN CORPUSCULAR VOLUME 98.4 fL (81-99); MONOCYTES # (AUTO) 0.4 (0.2-0.8); MONOCYTES % 7.8 % (4.4-11.3); NEUTROPHILS # (AUTO) 1.4 (2.1-6.9); NEUTROPHILS % 30.1 % (38.7-80.0); PLATELET COUNT 151 x10e3/uL (140-360); RED BLOOD COUNT 3.75 x10e6/uL (3.6-5.1); RED CELL DISTRIBUTION WIDTH 13.7 % (11.7-14.4); WHITE BLOOD COUNT 4.77 x10e3/uL (4.8-10.8)
[2024-08-15 06:40] LABS: ALBUMIN 3.5 g/dL (3.5-5.0); ALBUMIN/GLOBULIN RATIO 1.3 (0.8-2.0); ANION GAP 15.3 mmol/L (8-16); BILIRUBIN,TOTAL 0.4 mg/dL (0.2-1.2); CALCIUM 8.8 mg/dL (8.4-10.2); CREATININE, SERUM 1.11 mg/dL (0.57-1.11); MAGNESIUM 1.8 MG/DL (1.3-2.1); POTASSIUM 4.3 mmol/L (3.5-5.1); TOTAL PROTEIN 6.1 g/dL (6.5-8.1)
[2024-08-15 07:40] LABS: THYROID STIMULATING HORMONE 210.294 uIU/mL (0.350-4.940)
[2024-08-15 07:41] LABS: FREE T4 (FREE THYROXINE) 0.55 ng/dL (0.8-1.8)
[2024-08-15] MEDS: Morphine 2mg Syringe 2 MG/ML SYR IV PRN (18:20)
[2024-08-16] VITALS (7 sets, daily range): BP systolic 136–184; BP diastolic 91–104; PULSE 60–85; RESP 18–21; TEMP 97.5–98.6; O2SAT 95–100
[2024-08-16] MEDS: HYDROCODONE/APAP 5MG-325MG TAB PO PRN (06:20)
[2024-08-16] MEDS: HYDRALAZINE HCL 20 MG/ML VIAL IV PRN (16:57)
[2024-08-16] MEDS ORDERED: ASPIRIN EC81 MG PO (18:15)
[2024-08-16] MEDS ORDERED: NORVASC5 MG PO (18:15)
[2024-08-16] MEDS ORDERED: TIROSINT100 MCG PO (18:15)
[2024-08-16] MEDS ORDERED: CLONIDINE HCL0.1 MG PO (18:15)
[2024-08-16] MEDS: LEVOTHYROXINE SODIUM 100 MCG/VIAL IV SCH (18:51)
[2024-08-16] MEDS: CLONIDINE HCL 0.1 MG TAB PO ONE (18:52)
[2024-08-16] MEDS: CLONAZEPAM 1 MG TAB PO PRN (18:57)
== END 2024-08-16 19:37 | disposition home or self-care (01) | DRG 644 ==
LOC: ER 15:16 → ERHOLD 18:52 → MED/SURG2 20:52
PROVIDERS: ADMIT Internal Medicine; ATTEND Internal Medicine
PROC: 02HV33Z Insertion of Infusion Device into Superior Vena Cava, Percutaneous Approach (ICD-10-PCS; principal; 2024-08-11)
DX: E89.0 Postprocedural hypothyroidism (principal); N17.9 Acute kidney failure, unspecified; N30.00 Acute cystitis without hematuria; I16.0 Hypertensive urgency; I12.9 Hypertensive chronic kidney disease with stage 1 through stage 4 chronic kidney disease, or unspecified chronic kidney disease; N18.32 Chronic kidney disease, stage 3b; I25.10 Atherosclerotic heart disease of native coronary artery without angina pectoris; E78.00 Pure hypercholesterolemia, unspecified; F33.41 Major depressive disorder, recurrent, in partial remission; R07.9 Chest pain, unspecified; K21.9 Gastro-esophageal reflux disease without esophagitis; R59.0 Localized enlarged lymph nodes; Z79.890 Hormone replacement therapy; Z79.02 Long term (current) use of antithrombotics/antiplatelets; I25.2 Old myocardial infarction; Z86.73 Personal history of transient ischemic attack (TIA), and cerebral infarction without residual deficits; Z90.49 Acquired absence of other specified parts of digestive tract
CPT/HCPCS: 36415; 70450; 71045; 72125; 76536; 80048; 80053; 80061; 81001; 82550; 83690; 83735; 83880; 84436; 84439; 84443; 84479; 84480; 84481; 84484; 85025; 85610; 85730; 86376; 87086; 93005; 99284; J0360; J0696; J1650; J2270; J2405; J2470; J7030

== ENCOUNTER 2025-01-10 12:44 | Inpatient (IN) | payer SELFPAY ==
[~2025-01-10] VITALS: Ht 160 cm; Wt 68.0 kg
[~2025-01-10 12:44] MED LIST changes: +CLONIDINE HCL0.1 MG PO; +TIROSINT100 MCG PO
[2025-01-10 14:11] LABS: BASOPHILS % 1.8 % (0.0-1.0); EOSINOPHILS % 4.7 % (0.0-6.0); LYMPHOCYTES % 33.1 % (18.0-39.1); MONOCYTES % 5.2 % (4.4-11.3); NEUTROPHILS % 54.8 % (38.7-80.0); RED CELL DISTRIBUTION WIDTH 14.9 % (11.7-14.4)
[2025-01-10 14:23] LABS: EST GLOMERULAR FILTRATION RATE 45.0 ML/MIN (>=60)
[2025-01-10 16:08] VITALS: PULSE 85; RESP 18; O2SAT 97
[2025-01-10] MEDS: ONDANSETRON HCL INJ 2MG/ML 2ML 2 MG/ML VIAL IV PRN (16:55)
[2025-01-10] MEDS: ACETAMINOPHEN 325 MG TAB PO ONE (16:56)
[2025-01-10 19:17] VITALS: TEMP 98.1
[2025-01-10] MEDS: HYDRALAZINE HCL 20 MG/ML VIAL IV PRN (20:29)
[2025-01-10 20:51] VITALS: PULSE 80; RESP 14
[2025-01-10] MEDS ORDERED: OXYCODONE HCL 10 MG TAB CR PO PRN (21:45)
[2025-01-10] MEDS: TEMAZEPAM 7.5 MG CAP PO PRN (22:34)
[2025-01-10] MEDS: OXYCODONE HCL IR 5 MG TAB PO PRN (22:34)
[2025-01-10 23:08] VITALS: BP 150/96; PULSE 78; RESP 18; TEMP 98.3; O2SAT 95
[2025-01-10 23:18] VITALS: BP 150/96; PULSE 78; RESP 18; TEMP 98.3; O2SAT 95
[2025-01-11 06:31] LABS: BASOPHILS % 2.5 % (0.0-1.0); EOSINOPHILS % 5.7 % (0.0-6.0); LYMPHOCYTES % 49.3 % (18.0-39.1); MONOCYTES % 5.2 % (4.4-11.3); NEUTROPHILS % 37.1 % (38.7-80.0); RED CELL DISTRIBUTION WIDTH 14.7 % (11.7-14.4)
[2025-01-11 06:53] LABS: EST GLOMERULAR FILTRATION RATE 52.0 ML/MIN (>=60)
[2025-01-11 12:52] VITALS: BP 138/97; PULSE 94; RESP 20; TEMP 98.2; O2SAT 95
[2025-01-11 17:46] VITALS: BP 156/97; PULSE 79; RESP 18; TEMP 98.1; O2SAT 97
[2025-01-11 19:02] VITALS: BP 137/98; PULSE 80; RESP 18; TEMP 98.4; O2SAT 97
[2025-01-11 20:10] VITALS: BP 138/97; PULSE 81; RESP 16; TEMP 97.3; O2SAT 93
[2025-01-12] VITALS (7 sets, daily range): BP systolic 127–167; BP diastolic 80–101; PULSE 74–88; RESP 16–20; TEMP 97.4–98.1; O2SAT 97–100
[2025-01-12] MEDS: LEVOTHYROXINE SODIUM 100 MCG TAB PO SCH (11:42)
[2025-01-12] MEDS: AMLODIPINE BESYLATE 5 MG TAB PO SCH (11:42)
[2025-01-12] MEDS: ASPIRIN 81 MG ENTERIC COATED PO SCH (11:42)
[2025-01-12] MEDS: PANTOPRAZOLE SOD 40 MG TABEC PO SCH (11:42)
[2025-01-12] MEDS: CLOPIDOGREL BISULFATE 75 MG TAB PO SCH (11:43)
[2025-01-12] MEDS: ALPRAZOLAM 0.5 MG TAB PO ONE (11:43)
[2025-01-12] MEDS: GABAPENTIN 300 MG CAP PO SCH (14:19)
[2025-01-12] MEDS ORDERED: GABAPENTIN 300 MG CAP PO SCH (15:00)
[2025-01-12] MEDS: ATORVASTATIN 40 MG TAB PO SCH (21:52)
[2025-01-13] VITALS: BP 128/82; PULSE 82; RESP 18; TEMP 98.2; O2SAT 95
[2025-01-13] MEDS: SODIUM CHLORIDE 0.9% 500ML 500 ML IV ONE (00:04)
[2025-01-13] MEDS ORDERED: ACETAMINOPHEN 325 MG TAB PO PRN (01:45)
[2025-01-13] MEDS: ACETAMIN/BUTALBITAL/CAFFEINE TAB PO PRN (03:11)
[2025-01-13 04:00] VITALS: BP 121/81; PULSE 73; RESP 18; TEMP 97.9; O2SAT 95
[2025-01-13] MEDS ORDERED: LEVOTHYROXINE SODIUM 100 MCG TAB PO SCH (06:00)
[2025-01-13 06:35] LABS: BASOPHILS % 2.5 % (0.0-1.0); EOSINOPHILS % 7.4 % (0.0-6.0); LYMPHOCYTES % 44.7 % (18.0-39.1); MONOCYTES % 6.5 % (4.4-11.3); NEUTROPHILS % 38.9 % (38.7-80.0); RED CELL DISTRIBUTION WIDTH 15.0 % (11.7-14.4)
[2025-01-13 07:03] LABS: EST GLOMERULAR FILTRATION RATE 58.0 ML/MIN (>=60)
[2025-01-13 08:00] VITALS: BP 135/93; PULSE 99; RESP 20; TEMP 98.3
[2025-01-13] MEDS: ALPRAZOLAM 0.25 MG TAB PO PRN ×2 (08:27→17:49)
[2025-01-13 08:37] LABS: T3 UPTAKE 28.07 % (22.5-37.0)
[2025-01-13 12:24] VITALS: BP 129/92; PULSE 79; RESP 20; TEMP 98.2; O2SAT 97
[2025-01-13 16:00] VITALS: BP 134/98; PULSE 80; RESP 18; TEMP 98; O2SAT 98
[2025-01-13 20:10] VITALS: BP 137/96; PULSE 86; RESP 18; TEMP 97.6; O2SAT 98
[2025-01-13] MEDS: Morphine 4mg INJECTION 4 MG/ML INJ IV PRN (23:57)
[2025-01-13 23:59] LABS: EST GLOMERULAR FILTRATION RATE 53.0 ML/MIN (>=60)
[2025-01-14] MEDS: POLYETHYLENE GLYCOL 3350 17 GM PACK PO PRN (05:33)
[2025-01-14 08:00] VITALS: BP 101/72; PULSE 86; RESP 21; TEMP 98.7; O2SAT 96
[2025-01-14 09:00] VITALS: BP 101/72; PULSE 86; RESP 21; TEMP 98.7; O2SAT 96
[2025-01-14 12:00] VITALS: BP 119/93; PULSE 85; RESP 19; TEMP 97.4; O2SAT 97
[2025-01-14] MEDS ORDERED: SENNOSIDES 8.6 MG TAB PO SCH (14:15)
[2025-01-14] MEDS: DOCUSATE SODIUM LIQD 100 MG/10 ML UDC PO ONE (14:32)
[2025-01-14 16:00] VITALS: BP 142/96; PULSE 84; RESP 20; TEMP 97.7; O2SAT 98
[2025-01-14 21:00] VITALS: BP 147/95; PULSE 82; RESP 18; TEMP 97.9; O2SAT 97
[2025-01-15 05:30] LABS: BASOPHILS % 2.2 % (0.0-1.0); EOSINOPHILS % 7.1 % (0.0-6.0); LYMPHOCYTES % 43.5 % (18.0-39.1); MONOCYTES % 8.6 % (4.4-11.3); NEUTROPHILS % 38.4 % (38.7-80.0); RED CELL DISTRIBUTION WIDTH 15.3 % (11.7-14.4)
[2025-01-15] MEDS: LEVOTHYROXINE SODIUM 100 MCG TAB PO SCH (05:30)
[2025-01-15 06:00] LABS: EST GLOMERULAR FILTRATION RATE 59.0 ML/MIN (>=60)
[2025-01-15 08:00] VITALS: BP 123/83; PULSE 89; RESP 19; TEMP 97.8; O2SAT 98
[2025-01-15 09:28] VITALS: BP 123/83; PULSE 89; RESP 19; TEMP 97.8; O2SAT 98
[2025-01-15] MEDS: AMLODIPINE BESYLATE 5 MG TAB PO SCH (09:32)
[2025-01-15] MEDS: LEVOTHYROXINE SODIUM 100 MCG/VIAL IV SCH (10:00)
[2025-01-15 12:00] VITALS: BP 138/100; PULSE 69; RESP 17; TEMP 98.1; O2SAT 96
[2025-01-15 16:00] VITALS: BP 127/94; PULSE 90; RESP 20; TEMP 97.4; O2SAT 98
[2025-01-15] MEDS ORDERED: BISACODYL 10 MG SUPP PR PRN (18:00)
[2025-01-15 20:00] VITALS: BP 160/101; PULSE 92; RESP 20; TEMP 97.9; O2SAT 99
[2025-01-16] VITALS (7 sets, daily range): BP systolic 117–164; BP diastolic 79–112; PULSE 76–85; RESP 17–20; TEMP 97.4–98.6; O2SAT 97–98
[2025-01-16] MEDS: LISINOPRIL 20 MG TAB PO SCH (09:04)
[2025-01-16] MEDS: CLONIDINE HCL 0.1 MG TAB PO PRN (11:48)
[2025-01-17 04:00] VITALS: BP 115/83; PULSE 75; RESP 18; TEMP 97.6; O2SAT 95
[2025-01-17 08:15] VITALS: BP 115/83; PULSE 75; RESP 18; TEMP 97.6; O2SAT 95
[2025-01-17 08:56] VITALS: BP 125/52; PULSE 65; RESP 19; TEMP 97.5; O2SAT 100
[2025-01-17] MEDS ORDERED: ULTRAM 50MG50 MG PO (12:07)
[2025-01-17] MEDS ORDERED: RESTORIL30 MG PO (12:07)
[2025-01-17] MEDS ORDERED: ACETAMINOPHEN325 M1 PO (12:07)
[2025-01-17] MEDS ORDERED: COLACE100 M1 PO (12:07)
[2025-01-17] MEDS ORDERED: KLONOPIN2 MG PO (12:07)
[2025-01-17] MEDS ORDERED: LISINOPRIL20 MG PO (12:07)
[2025-01-17] MEDS ORDERED: MIRALAX17 GM PO (12:07)
[2025-01-17 12:26] VITALS: BP 149/103; PULSE 88; RESP 19; TEMP 97.7; O2SAT 95
== END 2025-01-17 15:08 | disposition home or self-care (01) | DRG 644 ==
LOC: ER 12:47 → ERHOLD 15:55 → MED/SURG2 21:05 → OBSVTOIN 01-12 11:08
PROVIDERS: ADMIT Internal Medicine; ATTEND Internal Medicine
PROC: 02HV33Z Insertion of Infusion Device into Superior Vena Cava, Percutaneous Approach (ICD-10-PCS; principal; 2025-01-13)
DX: E89.0 Postprocedural hypothyroidism (principal); N17.9 Acute kidney failure, unspecified; R07.89 Other chest pain; I10 Essential (primary) hypertension; E78.5 Hyperlipidemia, unspecified; F41.9 Anxiety disorder, unspecified; G47.00 Insomnia, unspecified; I25.10 Atherosclerotic heart disease of native coronary artery without angina pectoris; K21.9 Gastro-esophageal reflux disease without esophagitis; M54.9 Dorsalgia, unspecified; K59.00 Constipation, unspecified; Z79.82 Long term (current) use of aspirin; Z79.02 Long term (current) use of antithrombotics/antiplatelets; Z79.890 Hormone replacement therapy; Z86.73 Personal history of transient ischemic attack (TIA), and cerebral infarction without residual deficits; I25.2 Old myocardial infarction; Z90.49 Acquired absence of other specified parts of digestive tract; Z90.710 Acquired absence of both cervix and uterus; Z91.041 Radiographic dye allergy status; Z88.0 Allergy status to penicillin; Z88.6 Allergy status to analgesic agent; Z88.8 Allergy status to other drugs, medicaments and biological substances; F17.290 Nicotine dependence, other tobacco product, uncomplicated; Z82.49 Family history of ischemic heart disease and other diseases of the circulatory system
CPT/HCPCS: 36415; 71045; 74176; 80048; 80053; 82550; 83690; 83735; 84436; 84439; 84443; 84479; 84484; 85025; 85730; 86376; 93005; 93306; 94799; 99284; G0378; J0360; J2270; J2405; J2470; J7040